=== PATIENT | male | born 1950 | race Caucasian/White ===

== ENCOUNTER → 2017-06-03 10:39 | Outpatient (CLI) | payer MEDICARE, SELFPAY ==
[2017-06-03 12:17] LABS: ALB/GLOB Ratio 1.1 RATIO (0.9-2.4); AST(SGOT) 26 U/L (15-37); Alanine Aminotransfer ALT/SGPT 35 U/L (16-61); Albumin, Serum 3.8 g/dL (3.2-5.0); Alkaline Phosphatase 75 U/L (45-117); Anion Gap 9 (5-15); BUN 15 mg/dL (7-18); BUN/Creat Ratio 12.8 RATIO (10-20); Chloride 102 mmol/L (98-107); Creatinine, Serum 1.17 mg/dL (0.70-1.30); EST Glomerular Filtration Rate 66 mL/min (>60); Est Glom Filt Rate - Afr Amer 80 mL/min (>60); Globulin 3.6 g/dL (2.2-4.2); Glucose 118 mg/dL (74-106); Potassium 3.8 mmol/L (3.5-5.1); Protein, Total 7.4 g/dL (6.4-8.2); Sodium Level 137 mmol/L (136-145)
== END ==
PROVIDERS: Family Provider Family Medicine; PCP Family Medicine; Visit Provider Family Medicine
DX: I10 Essential (primary) hypertension (principal)
CPT/HCPCS: 36415; 80053

== ENCOUNTER → 2017-12-07 09:27 | Outpatient (CLI) | payer MEDICARE, SELFPAY ==
[2017-12-07 12:27] LABS: Anion Gap 9 (5-15); BUN 21 mg/dL (7-18); BUN/Creat Ratio 15.2 RATIO (10-20); Chloride 105 mmol/L (98-107); Creatinine, Serum 1.38 mg/dL (0.70-1.30); EST Glomerular Filtration Rate 54 mL/min (>60); Est Glom Filt Rate - Afr Amer 66 mL/min (>60); Glucose 123 mg/dL (74-106); Potassium 4.4 mmol/L (3.5-5.1); Sodium Level 137 mmol/L (136-145)
== END ==
PROVIDERS: Family Provider Family Medicine; PCP Family Medicine; Visit Provider Family Medicine
DX: I10 Essential (primary) hypertension (principal)
CPT/HCPCS: 36415; 80048

== ENCOUNTER → 2018-03-17 10:36 | Outpatient (CLI) | payer MEDICARE, SELFPAY ==
[2018-03-17 11:34] LABS: Amphetamine Urine VISTA NEGATIVE (<1000 ng/mL); Barbiturate Urine VISTA NEGATIVE (< 200 ng/mL); Benzodiazepine Urine VISTA NEGATIVE (< 200 ng/mL); Cocaine Urine VISTA NEGATIVE (< 300 ng/mL); Ecstacy Urine VISTA NEGATIVE (< 500 ng/mL); Methadone Urine VISTA NEGATIVE (< 300 ng/mL); PCP Urine VISTA NEGATIVE (< 25 ng/mL); THC Urine VISTA POSITIVE (< 50 ng/mL); Vista UDS pH Range 5
== END ==
PROVIDERS: Family Provider Family Medicine; PCP Family Medicine; Referring Provider Anesthesiology Pain Medicine; Visit Provider Anesthesiology Pain Medicine
DX: F11.20 Opioid dependence, uncomplicated (principal)
CPT/HCPCS: 80307

== ENCOUNTER → 2018-07-07 09:28 | Outpatient (CLI) | payer MEDICARE, SELFPAY ==
--- NOTE | 2018-07-07 09:30 | RAD_ITS ---
STUDY: X-RAY - LUMBAR SPINE REASON FOR EXAM: Male, 67 years old. Chronic low back pain. TECHNIQUE: 5 view(s) of the lumbar spine were obtained including oblique views. COMPARISON: Comparison is made with prior examination dated September 17, 2016. FINDINGS: Normal lumbar lordosis. There is a dextroscoliosis of the lumbar spine. Grade 2 anterior listhesis of L5 on S1. 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 There is multilevel endplate spondylosis of the lumbar vertebrae. There is multi-level degenerative disc disease with multi-level disc space narrowing. The soft tissue structures are unremarkable. RAD/L/S Spine Min 4 Views IMPRESSION: Degenerative changes of the spine, as detailed above. Dextroscoliosis. Grade 2 anterolisthesis of L5 on S1. Electronically Signed: Deuce Vasquez, at 9:31 EDT , Service support ,
--- NOTE | 2018-07-07 09:31 | RAD_ITS ---
STUDY: X-RAY - THORACIC SPINE REASON FOR EXAM: Male, 67 years old. Back pain. TECHNIQUE: 2 view(s) of the thoracic spine were obtained. COMPARISON: None. FINDINGS: Normal kyphosis of the thoracic spine. There is no substantial scoliosis. There is multilevel endplate spondylosis of the thoracic vertebrae. There is multilevel disc space narrowing of the thoracic spine. The soft tissue structures are unremarkable. RAD/Thoracic Spine 2 Views IMPRESSION: Multilevel disc space narrowing and spondylosis of the thoracic vertebrae. Electronically Signed: Deuce Vasquez, at 9:31 EDT , Service support ,
== END ==
PROVIDERS: Family Provider Family Medicine; PCP Family Medicine; Referring Provider Family Medicine; Visit Provider Family Medicine
DX: M54.6 Pain in thoracic spine (principal); M54.40 Lumbago with sciatica, unspecified side
CPT/HCPCS: 72070; 72110

== ENCOUNTER → 2019-03-02 11:48 | Outpatient (CLI) | payer MEDICARE, SELFPAY ==
[2019-03-02 13:05] LABS: Amphetamine Urine VISTA NEGATIVE (<1000 ng/mL); Barbiturate Urine VISTA NEGATIVE (< 200 ng/mL); Benzodiazepine Urine VISTA NEGATIVE (< 200 ng/mL); Cocaine Urine VISTA NEGATIVE (< 300 ng/mL); Ecstacy Urine VISTA NEGATIVE (< 500 ng/mL); Methadone Urine VISTA NEGATIVE (< 300 ng/mL); PCP Urine VISTA NEGATIVE (< 25 ng/mL); THC Urine VISTA NEGATIVE (< 50 ng/mL); Vista UDS pH Range 5
== END ==
PROVIDERS: Family Provider Family Medicine; PCP Family Medicine; Referring Provider Anesthesiology Pain Medicine; Visit Provider Anesthesiology Pain Medicine
DX: F11.20 Opioid dependence, uncomplicated (principal)
CPT/HCPCS: 80307

== ENCOUNTER → 2020-01-24 07:03 | Outpatient (CLI) | payer MEDICARE, SELFPAY ==
[2020-01-24 09:55] LABS: Absolute Lymphocyte Count 1.42 X10^3/uL (0.83-4.51); Absolute Neutrophil Count 6.6 X10^3/uL (2.0-7.7); Basophil# 0.05 X10^3/uL; Basophil% 0.5 % (0-1); Eosinophil# 0.15 X10^3/uL; Eosinophils% 1.6 % (0-5); Hemoglobin 14.5 g/dL (13.0-16.5); Lymphocyte # 1.42 X10^3/ul (4.0); Lymphocyte % 15.6 % (19-41); Mean Corp Hgb Conc 31.5 g/dL (32-36); Mean Corpuscular Hgb 29.5 pg (27.0-32.0); Mean Corpuscular Volume 93.7 fL (80-94); Mean Platelet Vol. 9.5 fl (6.2-12.0); Monocyte# 0.83 X10^3/uL; Monocyte% 9.1 % (0-10); NRBC Flagged by Analyzer 0 % (0-5); Neutrophil # 6.57 X10^3/uL (2.7-7.7); Neutrophil % 72.2 % (47-70); Platelet Count 242 K/mm3 (150-450); RBC Distribution Width CV 13.1 % (11.6-14.6); RBC Distribution Width SD 44.9 fl (35.1-43.9); Red Blood Count 4.91 M/mm3 (4.6-6.2); White Blood Count 9.1 K/mm3 (4.4-11.0)
[2020-01-24 10:14] LABS: Hemoglobin A1c 5.9 % (3.8-5.6)
[2020-01-24 10:42] LABS: ALB/GLOB Ratio 0.9 RATIO (0.9-2.4); AST(SGOT) 16 U/L (15-37); Alanine Aminotransfer ALT/SGPT 22 U/L (16-61); Albumin, Serum 3.6 g/dL (3.2-5.0); Alkaline Phosphatase 74 U/L (45-117); Anion Gap 5 (5-15); BUN 18 mg/dL (7-18); BUN/Creat Ratio 14.6 RATIO (10-20); Calcium,Total 9.2 mg/dL (8.5-10.1); Chloride 103 mmol/L (98-107); Cholesterol 177 mg/dL (200); Creatinine, Serum 1.23 mg/dL (0.70-1.30); EST Glomerular Filtration Rate 62 mL/min (>60); Est Glom Filt Rate - Afr Amer 75 mL/min (>60); Globulin 3.8 g/dL (2.2-4.2); Glucose 119 mg/dL (74-106); High Density Lipoprotein 42 mg/dL; Potassium 4.1 mmol/L (3.5-5.1); Protein, Total 7.4 g/dL (6.4-8.2); Sodium Level 138 mmol/L (136-145); Thyroid Stim Hormone (TSH) 1.31 uIU/mL (0.358-3.74); Triglycerides 99 mg/dL; Very Low Density Lipoprotein 20 mg/dL (5-40)
== END ==
PROVIDERS: PCP Family Medicine; Referring Provider Nurse Practitioner Family; Visit Provider Nurse Practitioner Family
DX: R53.82 Chronic fatigue, unspecified (principal); R68.82 Decreased libido; E66.9 Obesity, unspecified; I10 Essential (primary) hypertension; M16.0 Bilateral primary osteoarthritis of hip; M79.10 Myalgia, unspecified site; Z79.899 Other long term (current) drug therapy
CPT/HCPCS: 36415; 80053; 80061; 83036; 84443; 85025; 86141

== ENCOUNTER → 2020-08-12 11:35 | Outpatient (CLI) | payer MEDICARE, SELFPAY | PROVIDERS: PCP Family Medicine; Referring Provider Family Medicine; Visit Provider Surgery | DX: Z01.812 Encounter for preprocedural laboratory examination (principal); Z01.818 Encounter for other preprocedural examination | CPT/HCPCS: 87426; C9803 ==

== ENCOUNTER → 2021-01-23 11:18 | Outpatient (CLI) | payer MEDICARE, SELFPAY ==
[2021-01-23 14:52] LABS: Absolute Lymphocyte Count 1.06 X10^3/uL (0.83-4.51); Absolute Neutrophil Count 3.1 X10^3/uL (2.0-7.7); Basophil# 0.02 X10^3/uL; Basophil% 0.4 % (0-1); Eosinophil# 0.14 X10^3/uL; Eosinophils% 2.8 % (0-5); Hematocrit 30.8 % (40-54); Hemoglobin 9.4 g/dL (13.0-16.5); Lymphocyte # 1.06 X10^3/ul (0.83-4.51); Lymphocyte % 21.2 % (19-41); Mean Corp Hgb Conc 30.5 g/dL (32-36); Mean Corpuscular Hgb 27.4 pg (27.0-32.0); Mean Corpuscular Volume 89.8 fL (80-94); Mean Platelet Vol. 9.6 fl (6.2-12.0); Monocyte# 0.68 X10^3/uL; Monocyte% 13.6 % (0-10); NRBC Flagged by Analyzer 0 % (0-5); Neutrophil # 3.08 X10^3/uL (2.7-7.7); Neutrophil % 61.6 % (47-70); Platelet Count 228 K/mm3 (150-450); RBC Distribution Width CV 15.9 % (11.6-14.6); RBC Distribution Width SD 52.1 fl (35.1-43.9); RET-HE 30.3 pg (30-35); Red Blood Count 3.43 M/mm3 (4.6-6.2); Reticulocyte Count 2.37 % (0.5-1.5)
[2021-01-23 15:09] LABS: Vitamin B12 383 pg/mL (211-911)
[2021-01-23 15:14] LABS: Anion Gap 7 (5-15); BUN 15 mg/dL (7-18); BUN/Creat Ratio 9.3 RATIO (10-20); Calcium,Total 8.9 mg/dL (8.5-10.1); Chloride 105 mmol/L (98-107); Creatinine, Serum 1.62 mg/dL (0.70-1.30); EST Glomerular Filtration Rate 45 mL/min (>60); Est Glom Filt Rate - Afr Amer 54 mL/min (>60); Ferritin 297 ng/mL (26-388); Glucose 111 mg/dL (74-106); Iron 32 ug/dL (65-175); Iron Binding Capacity,Total 221 ug/dL (250-450); Potassium 3.6 mmol/L (3.5-5.1); Sodium Level 139 mmol/L (136-145)
== END ==
PROVIDERS: PCP Family Medicine; Referring Provider Family Medicine; Visit Provider Family Medicine
DX: D64.9 Anemia, unspecified (principal); N18.30 Chronic kidney disease, stage 3 unspecified
CPT/HCPCS: 36415; 80048; 82607; 82728; 83540; 83550; 85025; 85045

== ENCOUNTER → 2021-03-26 09:09 | Outpatient (CLI) | payer MEDICARE, SELFPAY ==
[2021-03-26 10:16] LABS: Absolute Lymphocyte Count 1.08 X10^3/uL (0.83-4.51); Absolute Neutrophil Count 3.7 X10^3/uL (2.0-7.7); Basophil# 0.02 X10^3/uL; Basophil% 0.3 % (0-1); Eosinophil# 0.27 X10^3/uL; Eosinophils% 4.7 % (0-5); Hematocrit 36.3 % (40-54); Hemoglobin 10.9 g/dL (13.0-16.5); Lymphocyte # 1.08 X10^3/ul (0.83-4.51); Lymphocyte % 18.7 % (19-41); Mean Corpuscular Hgb 26.5 pg (27.0-32.0); Mean Corpuscular Volume 88.3 fL (80-94); Mean Platelet Vol. 9.6 fl (6.2-12.0); Monocyte# 0.67 X10^3/uL; Monocyte% 11.6 % (0-10); NRBC Flagged by Analyzer 0 % (0-5); Neutrophil # 3.72 X10^3/uL (2.7-7.7); Neutrophil % 64.4 % (47-70); Platelet Count 231 K/mm3 (150-450); RBC Distribution Width CV 16.5 % (11.6-14.6); RBC Distribution Width SD 53.5 fl (35.1-43.9); Red Blood Count 4.11 M/mm3 (4.6-6.2); White Blood Count 5.8 K/mm3 (4.4-11.0)
[2021-03-26 10:44] LABS: Anion Gap 11 (5-15); BUN 15 mg/dL (7-18); BUN/Creat Ratio 11.9 RATIO (10-20); Calcium,Total 9.1 mg/dL (8.5-10.1); Chloride 101 mmol/L (98-107); Creatinine, Serum 1.26 mg/dL (0.70-1.30); EST Glomerular Filtration Rate 60 mL/min (>60); Est Glom Filt Rate - Afr Amer 72 mL/min (>60); Ferritin 167 ng/mL (26-388); Glucose 115 mg/dL (74-106); Iron 32 ug/dL (65-175); Potassium 3.8 mmol/L (3.5-5.1); Sodium Level 138 mmol/L (136-145)
== END ==
PROVIDERS: PCP Family Medicine; Referring Provider Family Medicine; Visit Provider Family Medicine
DX: D64.9 Anemia, unspecified (principal); N18.30 Chronic kidney disease, stage 3 unspecified; I50.9 Heart failure, unspecified
CPT/HCPCS: 36415; 80048; 82728; 83540; 83880; 85025

== ENCOUNTER → 2022-02-11 | Outpatient (CLI) | payer MEDICARE, SELFPAY ==
[2022-02-11 13:19] LABS: ALB/GLOB Ratio 0.8 RATIO (0.9-2.4); AST(SGOT) 24 U/L (15-37); Alanine Aminotransfer ALT/SGPT 28 U/L (16-61); Albumin, Serum 3.3 g/dL (3.2-5.0); Alkaline Phosphatase 145 U/L (45-117); Anion Gap 6 (5-15); BUN 26 mg/dL (7-18); BUN/Creat Ratio 17.4 RATIO (10-20); Chloride 106 mmol/L (98-107); Creatinine, Serum 1.49 mg/dL (0.70-1.30); EST Glomerular Filtration Rate 49 mL/min (>60); Est Glom Filt Rate - Afr Amer 60 mL/min (>60); Globulin 3.9 g/dL (2.2-4.2); Glucose 109 mg/dL (74-106); Potassium 4.3 mmol/L (3.5-5.1); Protein, Total 7.2 g/dL (6.4-8.2); Sodium Level 138 mmol/L (136-145); Thyroid Stim Hormone (TSH) 3.23 uIU/mL (0.358-3.74)
[2022-02-11 13:34] LABS: BNP,B-Type NATRIURETIC PEPTIDE 581.3 pg/mL (0-100)
== END | disposition home or self-care (01) ==
LOC: MFPLAB 10:18
PROVIDERS: PCP Family Medicine; Referring Provider Family Medicine; Visit Provider Family Medicine
DX: R79.89 Other specified abnormal findings of blood chemistry (principal); I50.9 Heart failure, unspecified; I48.91 Unspecified atrial fibrillation; N18.30 Chronic kidney disease, stage 3 unspecified; Z12.5 Encounter for screening for malignant neoplasm of prostate
CPT/HCPCS: 36415; 80053; 83880; 84153; 84443; G0103

== ENCOUNTER → 2022-05-28 | Outpatient (CLI) | payer MEDICARE, SELFPAY ==
[2022-05-28 12:09] LABS: Hematocrit 41.1 % (40-54); Mean Corp Hgb Conc 31.6 g/dL (32-36); Mean Corpuscular Hgb 29.7 pg (27.0-32.0); Mean Corpuscular Volume 93.8 fL (80-94); Platelet Count 145 K/mm3 (150-450); RBC Distribution Width CV 16.4 % (11.6-14.6); RBC Distribution Width SD 57.2 fl (35.1-43.9); Red Blood Count 4.38 M/mm3 (4.6-6.2); White Blood Count 5.3 K/mm3 (4.4-11.0)
[2022-05-28 12:36] LABS: BNP,B-Type NATRIURETIC PEPTIDE 1180.3 pg/mL (0-100); Vitamin D,25 Hydroxy 36.2 ng/mL
[2022-05-28 12:40] LABS: Anion Gap 9 (5-15); BUN 21 mg/dL (7-18); BUN/Creat Ratio 12.7 RATIO (10-20); Calcium,Total 8.9 mg/dL (8.5-10.1); Chloride 105 mmol/L (98-107); Cholesterol 127 mg/dL (200); Creatinine, Serum 1.65 mg/dL (0.70-1.30); EST Glomerular Filtration Rate 44 mL/min (>60); Est Glom Filt Rate - Afr Amer 53 mL/min (>60); Glucose 108 mg/dL (74-106); High Density Lipoprotein 28 mg/dL; Phosphorus 2.6 mg/dL (2.5-4.9); Potassium 4.2 mmol/L (3.5-5.1); Sodium Level 139 mmol/L (136-145); Thyroid Stim Hormone (TSH) 5.07 uIU/mL (0.358-3.74); Triglycerides 87 mg/dL; Very Low Density Lipoprotein 17 mg/dL (5-40)
[2022-05-29 11:22] LABS: T4 Free Direct 1.49 ng/dL (0.76-1.46)
== END | disposition home or self-care (01) ==
LOC: MFPLAB 09:44
PROVIDERS: PCP Family Medicine; Referring Provider Family Medicine; Visit Provider Family Medicine
DX: I50.9 Heart failure, unspecified (principal); S22.000A Wedge compression fracture of unspecified thoracic vertebra, initial encounter for closed fracture; E11.69 Type 2 diabetes mellitus with other specified complication; D64.9 Anemia, unspecified
CPT/HCPCS: 36415; 80048; 80061; 82306; 82330; 83735; 83880; 83970; 84100; 84439; 84443; 85027

== ENCOUNTER → 2022-09-17 | Outpatient (CLI) | payer MEDICARE, SELFPAY ==
[2022-09-17 17:49] LABS: Hematocrit 38.9 % (40-54); Hemoglobin 12.1 g/dL (13.0-16.5); Mean Corp Hgb Conc 31.1 g/dL (32-36); Mean Corpuscular Volume 99.7 fL (80-94); Mean Platelet Vol. 9.3 fl (6.2-12.0); Platelet Count 253 K/mm3 (150-450); RBC Distribution Width CV 17.2 % (11.6-14.6); RBC Distribution Width SD 62.7 fl (35.1-43.9); RET-HE 34.3 pg (30-35); White Blood Count 5.2 K/mm3 (4.4-11.0)
[2022-09-17 18:39] LABS: Anion Gap 6 (5-15); BUN 23 mg/dL (7-18); BUN/Creat Ratio 15.4 RATIO (10-20); Calcium,Total 9.3 mg/dL (8.5-10.1); Chloride 107 mmol/L (98-107); Creatinine, Serum 1.49 mg/dL (0.70-1.30); EST Glomerular Filtration Rate 49 mL/min (>60); Est Glom Filt Rate - Afr Amer 59 mL/min (>60); Ferritin 185 ng/mL (26-388); Glucose 101 mg/dL (74-106); Iron 43 ug/dL (65-175); Iron Binding Capacity,Total 301 ug/dL (250-450); Potassium 4.7 mmol/L (3.5-5.1); Sodium Level 138 mmol/L (136-145); T4 Free Direct 1.29 ng/dL (0.76-1.46); Thyroid Stim Hormone (TSH) 2.86 uIU/mL (0.358-3.74)
== END | disposition home or self-care (01) ==
LOC: MFPLAB 16:46
PROVIDERS: PCP Family Medicine; Visit Provider Family Medicine
DX: N18.30 Chronic kidney disease, stage 3 unspecified (principal); D64.9 Anemia, unspecified; R79.89 Other specified abnormal findings of blood chemistry
CPT/HCPCS: 36415; 80048; 82728; 83540; 83550; 84439; 84443; 85027; 85045

== ENCOUNTER → 2023-09-08 | Outpatient (CLI) | payer MEDICARE, SELFPAY ==
[2023-09-08 16:32] LABS: Free T3 4.5 pg/mL (2.18-3.98); T3 Uptake 44 % (33-40); T4 Free Direct 2.71 ng/dL (0.76-1.46); T4 Total, Thyroxin 16.3 ug/dL (4.5-12.1); T7 / Free Thyroxin Index 7.2 (1.4-4.5); Thyroid Stim Hormone (TSH) < 0.01 uIU/mL (0.358-3.74)
[2023-09-10 08:12] LABS: Thyroid Peroxidase AB 15 IU/mL (0-34)
== END | disposition home or self-care (01) ==
LOC: MFPLAB 12:29
PROVIDERS: PCP Family Medicine; Visit Provider Family Medicine
DX: E07.9 Disorder of thyroid, unspecified (principal)
CPT/HCPCS: 36415; 84436; 84439; 84443; 84479; 84481; 86376

== ENCOUNTER → 2024-03-29 | Outpatient (CLI) | payer MEDICARE, SELFPAY ==
[2024-03-29 18:06] LABS: Hematocrit 51.2 % (40-54); Hemoglobin 16.9 g/dL (13.0-16.5); Mean Corpuscular Hgb 31.5 pg (27.0-32.0); Mean Corpuscular Volume 95.5 fL (80-94); Mean Platelet Vol. 9.8 fl (6.2-12.0); Platelet Count 179 K/mm3 (150-450); RBC Distribution Width CV 14.6 % (11.6-14.6); Red Blood Count 5.36 M/mm3 (4.6-6.2); White Blood Count 7.5 K/mm3 (4.4-11.0)
[2024-03-29 18:29] LABS: Anion Gap 7 (5-15); BUN 31 mg/dL (7-18); BUN/Creat Ratio 23.8 RATIO (10-20); Calcium,Total 9.7 mg/dL (8.5-10.1); Chloride 106 mmol/L (98-107); EST Glomerular Filtration Rate 57 mL/min (>60); Est Glom Filt Rate - Afr Amer 69 mL/min (>60); Free T3 2.7 pg/mL (2.18-3.98); Glucose 106 mg/dL (74-106); Iron 68 ug/dL (65-175); Potassium 4.6 mmol/L (3.5-5.1); Sodium Level 136 mmol/L (136-145); T4 Free Direct 0.96 ng/dL (0.76-1.46)
[2024-03-30 00:47] LABS: Vitamin D,25 Hydroxy 32.9 ng/mL
[2024-03-31 11:07] LABS: Thyroid Peroxidase AB < 9 IU/mL (0-34)
== END | disposition home or self-care (01) ==
LOC: MFPLAB 15:09
PROVIDERS: PCP Family Medicine; Referring Provider Family Medicine; Visit Provider Family Medicine
DX: N18.30 Chronic kidney disease, stage 3 unspecified (principal); R79.89 Other specified abnormal findings of blood chemistry
CPT/HCPCS: 36415; 80048; 82306; 83540; 84439; 84443; 84481; 85027; 86376

== ENCOUNTER → 2024-10-18 | Outpatient (CLI) | payer MEDICARE, SELFPAY ==
[2024-10-18 08:57] LABS: Barbiturate Urine NEGATIVE (< 200 ng/mL); Benzodiazepine Urine NEGATIVE (< 200 ng/mL); PCP Urine NEGATIVE (< 25 ng/mL); THC Urine PRESUMPTIVE POSITIVE (< 50 ng/mL)
== END | disposition home or self-care (01) ==
LOC: LAB 07:49
PROVIDERS: PCP Family Medicine; Referring Provider Anesthesiology; Visit Provider Anesthesiology
DX: M47.26 Other spondylosis with radiculopathy, lumbar region (principal)
CPT/HCPCS: 80307

== ENCOUNTER → 2024-12-15 | Outpatient (CLI) | payer MEDICARE, SELFPAY ==
--- OUTSIDE RECORDS SUMMARY | 2024-12-13 05:39 | XMS RPT_ITS | CCD ---
Author Organization [facility] Care Team Providers Care Cooler Service Supervisor Name Role Phone Dominick Saenz Unavailable Unavailab Dominick Norman Unavailable Unavailab Hoda Arcos Unavailable Unavail able Dominick Saenz Unavailable Unavailab Refugio Pulido Unavailable Hoda Lewis Unavailable Unavailable KENAN NEWTON, DR DRUMMOND Primary Care Physician Hoda Grayson MD Primary Care Provider KENAN NEWTON, DR DRUMMOND Primary Care Physician NASH HENRY Referring Unavailable HODA GRAYSON Primary Care UnavailNASH Barth Admitting Unavailable NASH HENRY Attending Unavailable HODA GRAYSON Primary Care UnavailCATRINA Maya Consulting Unavailable PHYSICIAN, NOT RECORDED Primary Care Physician U margie GRAYSON MD, DR DRUMMOND Primary Care Jabier KOWALSKI MD, DR XU Robledo Attending Unavailable KENAN NEWTON, DR DRUMMOND Primary Care Jabier MODI MD, SAM Attending Unavailable KENAN NEWTON, DR DRUMMOND Primary Care Jabier MODI MD, SAM Attending Unavailable KENAN NEWTON, DR DRUMMOND Primary Care Jabier GRAYSON MD, DR DRUMMOND Consulting Jabier KOWALSKI MD, DR XU Robledo Attending Unavailable KENAN NEWTON, DR DRUMMOND Primary Care Jabier JUSTIN, MS MIL M Attending Gowdin GRAYSON MD, DR DRUMMOND Primary Care Jabier JUSTIN, MS MIL M Attending DELMAR Govea MD Attending Unavailable KENAN NEWTON, DR DRUMMOND Primary Care SCOTT Pimentel MD Attending Unavailable KENAN NEWTON, DR DRUMMOND Primary Care Jabier RESTREPO APRN-PAINT MIXER MACHINE, FRANKLYN Mota Referring Jabier RESTREPO APRN-PAINT MIXER MACHINE, FRANKLYN L Admitting Jabier MANCILLA MD, JG Consulting Unavailable KENAN NEWTON, DR DRUMMOND Primary Care Jabier LEON PA, MS MIL M Attending Godwin GRAYSON MD, DR DRUMMOND Primary Care Jabier MORENO MD, DELMAR Vasquez Attending Unavailable JOSH NEWTON, DELMAR Vasquez Attending Unavailable KENAN NEWTON, DR DRUMMOND Primary Care Jabier MORENO MD, DELMAR Vasquez Attending Unavailable KENAN NEWTON, DR DRUMMOND Primary Care Jabier KOWALSKI MD, DR XU Robledo Attending Unavailable KENAN NEWTON, DR DRUMMOND Primary Care Jabier KOWALSKI MD, DR XU Robledo Attending Unavailable KENAN NEWTON, DR DRUMMOND Primary Care Jabier MODI MD, SAM Attending Unavailable LY NETWON, SAM Admitting Unavailable KENAN NEWTON, DR DRUMMOND Primary Care Jabier SERNA APRN-PAINT MIXER MACHINE, ARLEY Carbajal Referring Unavail able KENAN NEWTON, DR DRUMMOND Primary Care Jabier MODI MD, SAM Attending Unavailable Hoda Grayson Primary Care Provider [phone] Arie NEWTON, Yulan Unavailable KENAN NEWTON, DR DRUMMOND [facility] Jabier SARGENT MD, NATALIA Steele Attending Unavailable Hoda Grayson MD Primary Care Provider HODA GRAYSON Primary Care Unavailable URBANO GODWIN Referring Unavailable ANTIONE CARDENAS Attending Unavailable HODA GRAYSON Primary Care Unavailable ANTIONE CARDENAS Attending Unavailable HODA GRAYSON Primary Care Unavailable ANTIONE CARDENAS Attending Unavailable ANTIONE CARDENAS Admitting Unavailable HODA GRAYSON Primary Care Unavailable JAJA, ANTIONE Attending Unavailable EARLINE LEW Attending Unavailable HODA GRAYSON Primary Care Unavailable Kenan NEWTON, Dr. Drummond Primary Care Provider Eric NEWTON, Dr. Elder Attending Provider Eric NEWTON, Dr. Elder Referring Provider DORYS NEWTON, AVI Abreu Attending Unavail gaby GRAYSON MD, DR DRUMMOND Primary Care Jabier GRAYSON MD, DR DRUMMOND Primary Care Jabier SAUL MD, AVI Abreu Attending Unavail gaby GRAYSON MD, DR DRUMMOND Primary Care Jabier GRAYSON MD, DR DRUMMOND Consulting Jabier KOWALSKI MD, DR XU Robledo Attending Unavailable KENAN NEWTON, DR DRUMMOND Primary Care Jabier LEW PA-C, EARLINE Attending Unavailab jeanna GRAYSON MD, DR DRUMMOND Primary Care Jabier REYES MD, JERROD Attending Unavailable Kenan Hoda [facility] Unavailable Jerrod Reyes Referring Unavailable Jerrod Reyes Attending Unavailable Kenan, Hoda Attending Unavailable Hoda Grayson [facility] Unavailable Hoda Grayson Referring Unavailable Kenan, Hoda [facility] Unavailable Jerrod Reyes Referring Unavailable Jerrod Reyes Attending Unavailable Allergies Allergy Classification Reported Allergen(s) Allergy Type Date of Onset Reaction(s) Facility (7 sources) Penicillin; Translations: [penicillin] Drug Allergy [facility] (4 sources) Penicillins; Translations: [PENICILLINS] Propensity to adverse reactions to drug 9 Intolerance [facility] (3 sources) Penicillins Propensity to adverse reactions 1 skin comes off bottom of feet [facility] (20 sources) Penicillin; Translations: [penicillin] Drug Allergy Broken skin (disorder) [facility] Comment on above: hands and feet peel ed and bled (3 sources) dapagliflozin; Translations: [dapagliflozin] Drug Allergy light headed [facility] (20 sources) dapagliflozin Drug Allergy 4 Other [facility] (20 sources) Penicillins Drug Allergy 9 Other [facility] (1 source) Penicillins Drug allergy (disorder) 1 [facility] Rep[facility] Medications Current Medications Medication Drug Class(es) Dates Sig (Normalized) Sig (Original) acetaminophen 325 mg / HYDROcodone bitartrate 7.5 mg oral tablet (20 sources) Opioid Agonist Start: 12-10-2023 End: 01-09-2024 take 1 tablet by mouth every four hours as needed for pain [place] 325- 7.5 mg oral tablet Dose = 1 tab(s), Oral, q4h, PRN for pain, # 90 tab(s), 0 Refill(s), Pharmacy: [facility], Lumbar radiculitis SCOLIOSIS/KYPHOSCO LIOSIS, 188, cm, 12/10/23 8:08:00 EDT, Height, 103, kg, 12/10/23 8:08:00 EDT, Dosing Weight Start Date: 12/10/23 Stop Date: 01/09/24 Status: Ordered Start: 11-16-2023 End: 12-16-2023 take 1 tablet by mouth every eight hours as needed for pain [place] 325- 7.5 mg oral tablet Dose = 1 tab(s), Oral, q8h, PRN for pain, # 90 tab(s), 0 Refill(s), Pharmacy: [facility], Lumbar radiculitis Spinal stenosis, 188, cm, 11/12/23 7:44:00 EDT, Height, 106.8, kg, 11/12/23 7:44:00 EDT, Dosing Weight Start Date: 11/16/23 Stop Date: 12/16/23 Status: Ordered Start: 10-15-2023 End: 11-14-2023 take 1 tablet by mouth every eight hours as needed for pain [place] 325- 7.5 mg oral tablet Dose = 1 tab(s), Oral, q8h, PRN as needed for pain, # 90 tab(s), 0 Refill(s), [facility]: [id number], Lumbar radiculitis SCOLIOSIS/KYPHOSCOLIOSIS, 188, cm, 10/15/23 7:42:00 EDT, Height, 106.9, kg, 10/15/23 7:42:00 EDT, Dosing Weight Start Date: 10/15/23 Stop Date: 11/14/23 Status: Ordered Start: 09-15-2023 End: 10-15-2023 take 1 tablet by mouth every six hours as needed for pain acetaminophen-hydrocodone 325 mg-7.5 mg oral tablet Dose = 1 tab(s), Oral, q6h, PRN for pain, # 120 tab(s), 0 Refill(s), Pharmacy: [facility] #[id number], Lumbar radiculitis SCOLIOSIS/KYPHOSCOLIOSIS, 188, cm, 09/15/23 9:38:00 EDT, Height, 104.5, kg, 09/15/23 9:38:00 EDT, Dosing Weight Start Date: 09/15/23 Stop Date: 10/15/23 Status: Ordered Start: 11-02-2022 End: 12-02-2022 take 1 tablet by mouth four times daily as needed for pain acetaminophen-hydrocodone 325 mg-7.5 mg oral tablet Dose = 1 tab(s), Oral, QID, PRN for pain, X 30 day(s), # 120 tab(s), 0 Refill(s), Pharmacy: [facility] #[id number], Lumbar stenosis with neurogenic claudication, 188, cm, 11/02/22 11:28:00 EDT, Height, 98.5, kg, 11/02/22 11:28:00 EDT, Dosing Weight Start Date: 11/02/22 Stop Date: 12/02/22 Status: Ordered Start: 12-25-2021 take 1 tablet by florencio th every four hours as needed HYDROcodone-acetaminophen (NORCO) 5-325 mg per tablet Indications: Localized osteoarthritis of left shoulder Take 1 tablet by mouth every 4 hours as needed. 42 tablet 12/25/2021 Active End: 07-07-2024 HYDROcodone-acetaminophen (N orco) 7.5-325 MG tablet 07/07/2024 Discontinued (Therapy completed) acetaminophen 325 mg / oxyCODONE hydrochloride 5 mg oral tablet (6 sources) Opioid Agonist Start: 09-16-2023 Oxycodone-Acet aminophen 5-325 mg tablet Active 1 {tbl} PO EVERY 6 HOURS as needed 0 September 16, 2023 12:00am Start: 02-01-2023 End: 03-03-2023 take 1 tablet by mouth every six hours as needed for pain acetaminophen-oxyCODONE 325 mg-5 mg oral tablet Dose = 1 tab(s), Oral, q6h, PRN for pain, X 30 day(s), # 120 tab(s), 0 Refill(s), [facility]: [facility] #[id number], Lumbar radiculitis Spinal stenosis, lumbar, 188, cm, 02/01/23 8:54:00 EDT, Height, 94.5, kg, 02/01/23 8:54:00 EDT, Dosing Weight Start Date: 02/01/23 Stop Date: 03/03/23 Status: Ordered Start: 01-04-2023 End: 01-29-2023 take 1 tablet by mouth every six hours as needed for pain acetaminophen-oxyCODONE 325 mg-5 mg oral tablet Dose = 1 tab(s), Oral, q6h, PRN for pain, X 25 day(s), # 100 tab(s), 0 Refill(s), [facility]: [facility] #[id number], Lumbar radiculitis, 188, cm, 01/04/23 8:40:00 EDT, Height, 110.4, kg, 01/04/23 8:40:00 EDT, Dosing Weight Start Date: 01/04/23 Stop Date: 01/29/23 Status: Ordered Start: 11-30-2022 End: 12-07-2022 take 1 tablet by mouth every four hours as needed for pain acetaminophen-oxyCODONE 325 mg-5 mg oral tablet Dose = 1 tab(s), Oral, q4h, PRN for pain, for post op pain SCS implant, X 7 day(s), # 42 tab(s), 0 Refill(s), [facility]: [id number], Spinal stenosis, lumbar, 182.88, cm, 11/30/22 6:55:00 EDT, Height, 104.55, kg, 11/30/22 6:55:00 EDT, Dosing Weight Start Date: 11/30/22 Stop Date: 12/07/22 Status: Ordered Start: 09-22-2022 End: 10-22-2022 take 1 tablet by mouth every four hours as needed for pain acetaminophen-oxyCODONE 325 mg-5 mg oral tablet Dose = 1 tab(s), Oral, q4h, PRN for pain, X 30 day(s), # 150 tab(s), 0 Refill(s), [facility]: [facility] #[id number], SCOLIOSIS/KYPHOSCOLIOSIS/Chronic back pain Spinal stenosis, lumbar, 188, cm, 09/21/22 13:46:00 EDT, Height, 104, kg, 09/21/22 13:46:00 EDT,... Start Date: 09/22/22 Stop Date: 10/22/22 Status: Ordered amLODIPine 5 mg oral tablet (3 sources) Dihydropyridine Calcium Channel Mimi take 1 tablet by mouth once daily in the morning amLODIPine (NORVASC) 5 mg tablet Take 5 mg by mouth once daily. AM Active Comment on above: Take 5 mg by mouth o nce daily. AM ascorbic acid 500 mg oral tablet (1 source) Vitamin C Start: 2 Vitamin C 500 mg oral tablet Dose : 500 mg = 1 tab(s), Oral, qDay, # 30 tab(s), 0 Refill(s) Start Date: 07/01/21 Status: Ordered aspirin 81 mg delayed release oral tablet (7 sources) Platelet Aggregation Inhibitor, Nonsteroidal Anti-inflammatory Drug Start: 1 Aspir-Low 81 mg oral delayed release tablet Dose : 81 mg = 1 tab(s), Oral, qDay, # 30 tab(s), 0 Refill(s), other reason (Rx) Start Date: 01/06/21 Status: Ordered take 1 tablet by florencio th every four hours as needed Aspirin 500 mg tab Take 500 mg by mouth every 4 hours as needed. Will stop today takes for pain Active Comment on above: Take 500 mg by mouth every 4 hours as needed. Will stop today takes for pain atorvastatin 40 mg oral tablet (20 sources) HMG-CoA Reductase Inhibitor Start: End: atorvastatin 40 mg oral tablet Dose : 40 mg = 1 tab(s), Oral, qDay, # 30 tab(s), 0 Refill(s) Start Date: 09/15/23 Status: Ordered Quantity: 30.0 Unit: tab(s) Repeat number: 1 Calcium (1 source) Phosphate Binder, Calcium Start: take 1 capsule by mouth twice daily Calcium 600 mg capsule Active 600 mg PO TWICE A DAY September 16, 2023 12:00am cholecalciferol 0.025 mg oral tablet (1 source) Vitamin D Start: take 1 tablet by mouth once daily Cholecalciferol (Vitamin D3) 25 mcg (1,000 unit) tablet Active 25 ug PO DAILY September 16, 2023 12:00am clindamycin 300 mg oral capsule (1 source) Lincosamide Antibacterial Start: End: clindamycin 300 mg oral capsule Dose : 300 mg = 1 cap(s), PO, q6hr, X 7 day(s), # 28 cap(s), 0 Refill(s), 12/12/21 4:54:00 EDT, Cellulitis, 110 Start Date: 12/05/21 Stop Date: 12/12/21 Status: Ordered dapagliflozin 10 mg oral tablet (20 sources) Sodium-Glucose Cotransporter 2 Inhibitor Start: End: Farxiga 10 mg oral tablet Dose : 10 mg = 1 tab(s), Oral, qDay, # 90 tab(s), 3 Refill(s), Pharmacy: [facility], 188, cm, 06/30/24 7:48:00 EDT, Height, kg, 06/30/24 7:48:00 EDT, Dosing Weight Start Date: 07/05/24 Status: Ordered Quantity: 90.0 Unit: tab(s) Repeat number: 4 doxycycline hyclate 100 mg oral capsule (1 source) Tetracycline-class Drug Start: End: doxycycline hyclate 100 mg oral capsule Dose : 100 mg = 1 cap(s), Oral, BID, X 10 day(s), # 20 cap(s), 0 Refill(s), 08/31/22 11:38:00 EDT, 113.6 Start Date: 08/21/22 Stop Date: 08/31/22 Status: Ordered empagliflozin 10 mg oral tablet (1 source) Sodium-Glucose Cotransporter 2 Inhibitor Start: Jardiance 10 mg oral tablet Dose : 10 mg = 1 tab(s), Oral, qAM, # 30 tab(s), 11 Refill(s), Pharmacy: [facility]/pharmacy #[id number], 188, cm, 06/19/22 8:56:00 EST, Height Start Date: 06/19/22 Status: Ordered furosemide 20 mg oral tablet (5 sources) Loop Diuretic Start: 024 take 1 tablet by mouth once daily Furosemide 20 mg tablet Active 20 mg PO DAILY September 16, 2023 12:00am Start: 08-16-2023 Lasix 20 mg or al tablet Dose : 20 mg = 1 tab(s), Oral, BID, AM and Lunch, # 180 tab(s), 3 Refill(s), Pharmacy: [facility], 188, cm, 08/16/23 14:45:00 EDT, Height, kg, 08/16/23 14:45:00 EDT, Dosing Weight Start Date: 08/16/23 Status: Ordered herbal/nutritional product (9 sources) Start: 07-01-2021 take 200 mg by mouth once daily herbal/nutritional product 200 mg, Oral, Daily, potassium, 0 Refill(s) Start Date: 07/01/21 Status: Ordered magnesium oxide 400 mg oral tablet (2 sources) Start: 09-05-2022 End: 10-05-2022 magnesium oxide 400 mg oral tablet Dose : 400 mg = 1 tab(s), Oral, BID, X 30 day(s), # 60 tab(s), 0 Refill(s), 10/05/22 14:02:00 EDT, Pharmacy: [facility]/pharmacy #[id number], 188, cm, 09/01/22 15:44:00 EDT, Height Start Date: 09/05/22 Stop Date: 10/05/22 Status: Ordered 24 hr metoprolol succinate 25 mg extended release oral tablet (14 sources) beta-Adrenerg ic Mimi Start: 10-04-2023 End: 10-05-2023 metoprolol succinate 25 mg oral TABLET extended release Start: 10/05/23 8:00:00 AM EDT, Dose = 25 mg, = 1 tab(s), Oral, 10/04/23 8:15:00 EDT Start Date: 10/05/23 Stop Date: 10/05/23 Status: Completed Start: 09-17-2023 End: 09-17-2023 metoprolol succinate 25 mg o ral TABLET extended release Start: 09/17/23 8:00:00 AM EDT, Dose = 25 mg, = 0.5 tab(s), Oral, 0, 09/16/23 17:19:00 EDT Start Date: 09/17/23 Stop Date: 09/17/23 Status: Completed Start: 08-16-2023 metoprolol suc cinate 25 mg oral TABLET extended release Dose : 25 mg = 1 tab(s), Oral, qDay, # 90 tab(s), 3 Refill(s), Pharmacy: [facility], 188, cm, 06/30/24 7:48:00 EDT, Height, kg, 06/30/24 7:48:00 EDT, Dosing Weight Start Date: 07/05/24 Status: Ordered Quantity: 90.0 Unit: tab(s) Repeat number: 4 metroNIDAZOLE 500 mg oral tablet (1 source) Nitroimidazole Antimicrobial Start: 08-21-2022 End: 08-31-2022 metroNIDAZOLE 500 mg oral tablet Dose : 500 mg = 1 tab(s), Oral, q8h, X 10 day(s), # 30 tab(s), 0 Refill(s), 08/31/22 11:38:00 EDT, 113.6 Start Date: 08/21/22 Stop Date: 08/31/22 Status: Ordered potassium chloride 10 meq oral tablet (11 sources) Start: 07-05-2024 Potassium Chlo ride (Eqv-K-Tab) 10 mEq oral tablet, extended release Dose : 10 mEq = 1 tab(s), Oral, qDay, # 90 tab(s), 3 Refill(s), Pharmacy: [facility], 188, lia, 06/30/24 7:48:00 EDT, Height, kg, 06/30/24 7:48:00 EDT, Dosing Weight Start Date: 07/05/24 Status: Ordered Quantity: 90.0 Unit: tab(s) Repeat number: 4 Start: 09-16-2023 take 1 tablet by florencio th once daily potassium chloride CR (Klor-Con) 10 MEQ ER tablet Take 10 mEq by mouth daily. 10/06/2023 Active Start: 08-16-2023 Potassium Chlo ride (Eqv-K-Tab) 10 mEq oral tablet, extended release Dose : 10 mEq = 1 tab(s), Oral, qDay, # 90 tab(s), 3 Refill(s), Pharmacy: [facility], 188, cm, 08/16/23 14:45:00 EDT, Height, kg, 08/16/23 14:45:00 EDT, Dosing Weight Start Date: 08/16/23 Status: Ordered rivaroxaban 20 mg oral tablet (20 sources) Factor Xa Inhibitor Start: 07-05-2024 Xarelto 20 mg oral tablet Dose : 20 mg = 1 tab(s), Oral, qPM, # 90 tab(s), 3 Refill(s), Pharmacy: [facility], 188, cm, 06/30/24 7:48:00 EDT, Height, 111, kg, 06/30/24 7:48:00 EDT, Dosing Weight Start Date: 07/05/24 Status: Ordered Quantity: 90.0 Unit: tab(s) Repeat number: 4 Start: 09-16-2023 End: 06-26-2024 take 15 mg by mouth once daily at dinner 15 mg, Oral, Daily with evening meal, First dose on 06/25/24 at 1800, Anticoagulant! Best administered with food or immediately before tube feedings. If ordered via NG or G-tube route, crush and mix with 50 mL water; give within 4 hours of mixing. Start: 08-30-2023 Xarelto 20 mg oral tablet Dose : 20 mg = 1 tab(s), Oral, qPM, # 90 tab(s), 3 Refill(s), Pharmacy: [facility], 188, lia, 08/30/23 6:51:00 EDT, Height, 108, kg, 08/30/23 6:51:00 EDT, Dosing Weight Start Date: 08/30/23 Status: Ordered Start: 01-06-2021 Xarelto 15 mg oral tablet Dose : 15 mg = 1 tab(s), Oral, qHS, with food with evening meal, # 90 tab(s), 3 Refill(s), Pharmacy: [facility], 188, cm, 05/28/23 10:28:00 EST, Height, 100, kg, 05/28/23 10:28:00 EST, Dosing Weight Start Date: 05/28/23 Status: Ordered Comment on above: Take 15 mg by mouth daily with dinner. LAST DOSE 72 HOURS PRE OP PER DR HENRY, DR KOWALSKI AWARE AND OKAY WITH sacubitril 24 mg / valsartan 26 mg oral tablet (20 sources) Angiotensin 2 Receptor Mimi Start: 09-16-2023 Sacubitril-Valsartan (Entresto) 24-26 mg tablet Active 1 {tbl} PO DAILY September 16, 2023 12:00am Start: 08-16-2023 take 1 tablet by florencio th twice daily Entresto 24 mg-26 mg oral tablet Dose = 1 tab(s), Oral, BID, # 180 tab(s), 3 Refill(s), Pharmacy: [facility], 188, cm, 06/30/24 7:48:00 EDT, Height, kg, 06/30/24 7:48:00 EDT, Dosing Weight Start Date: 07/05/24 Status: Ordered Quantity: 180.0 Unit: tab(s) Repeat number: 4 spironolactone 25 mg oral tablet (8 sources) Aldosterone Antagonist Start: 03-19-2021 spironolactone 25 mg oral tablet Dose : 25 mg = 1 tab(s), Oral, qDayM, # 90 tab(s), 3 Refill(s), Pharmacy: [facility]/pharmacy #[id number], 188, cm, 06/16/21 6:53:00 EST, Height, kg, 06/16/21 6:53:00 EST, Dosing Weight Start Date: 06/16/21 Status: Ordered Comment on above: Take 25 mg by mouth once daily. AM, EVERY OTHER DAY tiZANidine 4 mg oral tablet (20 sources) Central alpha-2 Adrenergic Agonist Start: 06-22-2024 End: 06-26-2024 take 1 tablet by mouth every six hours as needed 4 mg, Oral, Every 6 hours PRN, muscle spasms, Starting on Marlene 06/22/24 at 1154 Start: 10-04-2023 tiZANidine 4 m g oral capsule Dose : 4 mg = 1 cap(s), Oral, TID, PRN Pain, 0 Refill(s) Start Date: 10/04/23 Status: Ordered Repeat number: 1 Start: 08-22-2022 Zanaflex 4 mg oral capsule Dose : 4 mg = 1 cap(s), Oral, q8h, PRN for muscle spasm, # 30 cap(s), 0 Refill(s) Start Date: 08/22/22 Status: Ordered Start: 07-01-2021 take 1 tablet by florencio th three times daily as needed tiZANidine (Zanaflex) 4 MG tablet Take 4 mg by mouth 3 times daily as needed. 06/30/2024 Active Comment on above: Take 4 mg by mouth a t bedtime as needed. Vitamin C 500 mg oral tablet (20 sources) Start: 09-21-2022 Vitamin C 500 mg oral tablet Dose : 500 mg = 1 tab(s), Oral, qDay Start Date: 09/21/22 Status: Ordered Repeat number: 1 Start: 09-21-2022 Vitamin C 500 mg oral tablet Dose : 500 mg = 1 tab(s), Oral, qDay Start Date: 09/21/22 Status: Ordered Start: 07-01-2021 Vitamin C 500 mg oral tablet Dose : 500 mg = 1 tab(s), Oral, qDay, # 30 tab(s), 0 Refill(s) Start Date: 07/01/21 Status: Ordered Vitamin D3 (9 sources) Start: 07-01-2021 Vitamin D3 Dos e : 1,000 unit(s) = 1 tab(s), Oral, Daily, # 30 tab(s), 0 Refill(s) Start Date: 07/01/21 Status: Ordered Vitamin D3 25 mcg (1000 intl units) oral capsule (20 sources) Start: 09-21-2022 Vitamin D3 25 mcg (1000 intl units) oral capsule Dose : 25 mcg = 1 cap(s), Oral, Daily, 0 Refill(s) Start Date: 09/21/22 Status: Ordered Repeat number: 1 Start: 09-21-2022 Vitamin D3 25 mcg (1000 intl units) oral capsule Dose : 25 mcg = 1 cap(s), Oral, Daily, 0 Refill(s) Start Date: 09/21/22 Status: Ordered Completed/Discontinued Medications Medication Drug Class(es) Dates Sig (Normalized) Sig (Original) acetaminophen 500 mg oral tablet (7 sources) Start: 06-21-2024 End: 06-26-2024 take 1 tablet by mouth every eight hours 1,000 mg, Oral, Every 8 hours, First dose on Wed06/21/24 at 1600, Phase II/On Unit, Maximum dose of acetaminophen is 4000 mg from all sources in 24 hours. Start: 06-21-2024 End: 06-21-2024 take 1000 mg by mouth once, then take 4000 mg by mouth every twenty-four hours 1,000 mg, Oral, Once, On Wed06/21/24 at 0600, For 1 dose, Preprocedure, Maximum dose of acetaminophen is 4000 mg from all sources in 24 hours. Do not administer if patient has taken tylenol take 1 tablet by florencio every eight hours as needed acetaminophen (TYLENOL EXTRA STRENGTH) 500 mg tablet Take 500 mg by mouth every 8 hours as needed for pain. Active Comment on above: Take 500 mg by mouth every 8 hours as needed for pain. ALPRAZolam 0.25 mg disintegrating oral tablet (2 sources) Benzodiazepine Start: 06-22-19 End: 06-22-19 25 0.25 mg, Oral, PRN, anxiety, Starting on Wed06/21/24 at 0550, For 1 dose, Preprocedure amiodarone hydrochloride 200 mg oral tablet (20 sources) Antiarrhythmic Start: 08-16-19 End: 06-27-19 take 1 tablet by mouth twice daily Amiodarone 200 mg tablet Active 200 mg PO TWICE A DAY September 16, 2023 2:21pm Start: 08-16-2023 take 2 tablets by mo [facility] once daily amiodarone (Pacerone) 200 MG tablet Take 400 mg by mouth daily. 08/16/2023 Active Start: 06-01-2023 amiodarone 200 mg oral tablet Dose : 200 mg = 1 tab(s), Oral, qDay, # 30 tab(s), 3 Refill(s), Pharmacy: [facility], 188, cm, 05/28/23 10:28:00 EST, Height, kg, 05/28/23 10:28:00 EST, Dosing Weight Start Date: 06/01/23 Status: Ordered Start: 03-12-2023 amiodarone 200 mg oral tablet Dose : 200 mg = 1 tab(s), Oral, qDay, # 30 tab(s), 3 Refill(s), Pharmacy: [facility], 188, cm, 02/05/23 10:10:00 EDT, Height, kg, 02/05/23 10:10:00 EDT, Dosing Weight Start Date: 03/12/23 Status: Ordered Start: 02-05-2023 amiodarone 200 mg oral tablet Dose : 200 mg = 1 tab(s), Oral, qDay, # 90 tab(s), 3 Refill(s), Pharmacy: [facility]/pharmacy #[id number], 188, cm, 02/05/23 10:10:00 EDT, Height, kg, 02/05/23 10:10:00 EDT, Dosing Weight Start Date: 02/05/23 Status: Ordered Start: 05-12-2022 amiodarone 200 mg oral tablet Dose : 200 mg = 1 tab(s), Oral, qDay, # 90 tab(s), 3 Refill(s), [id number] 188, cm, 12/17/21 9:12:00 EDT, Height, kg, 12/17/21 9:12:00 EDT, Dosing Weight Start Date: 05/12/22 Status: Ordered Start: 05-30-2021 End: 09-16-2023 take 1 tablet by mouth once daily Amiodarone 200 mg tablet Discontinued 200 mg PO DAILY September 16, 2023 12:00am September 16, 2023 2:22pm Comment on above: Take 200 mg by mouth once daily. AM PER DR KOWALSKI, HX AFIB bisacodyl 10 mg rectal suppository (2 sources) Stimulant Laxative Start: 5 End: 5 take 10 mg rectal route once daily 10 mg, Rectal, Daily, First dose on Wed06/23/24 at 1300 bumetanide 1 mg oral tablet (20 sources) Loop Diuretic Start: 3 End: 5 take 1 tablet by mouth once daily bumetanide (Bumex) 1 MG tablet Take 1 mg by mouth daily. 11/25/2022 07/07/2024 Discontinued (Therapy completed) Start: 08-16-2022 bumetanide 1 m g oral tablet Dose : 1 mg = 1 tab(s), Oral, qDay Start Date: 08/25/22 Status: Ordered Start: 06-19-2022 bumetanide 1 m g oral tablet Dose : 1 mg = 1 tab(s), Oral, Daily, # 90 tab(s), 3 Refill(s), Pharmacy: [facility]/pharmacy #[id number], 188, cm, 06/19/22 8:56:00 EST, Height Start Date: 06/19/22 Status: Ordered Start: 09-24-2021 bumetanide 1 m g oral tablet See Instructions, 1 tab(s) Oral qMon Thurs, # 30 tab(s), 3 Refill(s), other reason (Rx) Start Date: 12/17/21 Status: Ordered Start: 06-16-2021 bumetanide 1 m g oral tablet Dose : 1 mg = 1 tab(s), Oral, BID, # 180 tab(s), 3 Refill(s), Pharmacy: [facility]/pharmacy #[id number], 188, cm, 06/16/21 6:53:00 EST, Height, kg, 06/16/21 6:53:00 EST, Dosing Weight Start Date: 06/16/21 Status: Ordered Start: 03-19-2021 bumetanide 1 m g oral tablet Dose : 1 mg = 1 tab(s), Oral, Every other day, # 90 tab(s), 3 Refill(s), Pharmacy: [facility]/pharmacy #[id number], 188, cm, 03/19/21 11:40:00 EST, Height, kg, 03/19/21 11:40:00 EST, Dosing Weight Start Date: 03/19/21 Status: Ordered calcium chloride 0.0014 meq/ ml / potassium chloride 0.004 meq/ml / sodium chloride 0.103 meq/ml / sodium lactate 0.028 meq/ml injectable solution (10 sources) Start: 06-26-2024 End: 06-26-2024 500 mL, IntraVENous, at 250 mL/hr, Administer over 2 Hours, Once, On Wed06/26/24 at 0700, For 1 dose Start: 06-23-2024 End: 06-23-2024 1,000 mL, IntraVENous, at 50 0 mL/hr, Administer over 2 Hours, Once, On Wed06/23/24 at 1900, For 1 dose Start: 06-21-2024 End: 06-21-2024 take 125 mL intravenously every hour 125 mL/hr, IntraVENous, Continuous, Starting on Wed06/21/24 at 1015, Recovery (only) carvedilol 25 mg oral tablet (20 sources) alpha-Adrenergic Mimi, beta-Adrenergic Mimi Start: 03-24-2021 End: 06-26-2024 take 1 tablet by mouth twice daily Carvedilol (Coreg) 25 mg tablet Discontinued 25 mg PO TWICE A DAY September 16, 2023 2:14pm September 16, 2023 2:29pm Start: 08-09-2020 End: 09-16-2023 take 1 tablet by mouth once daily Carvedilol (Coreg) 25 mg Tablet Discontinued 25 mg PO DAILY August 09, 2020 12:00am September 16, 2023 2:17pm Comment on above: Take 25 mg by mouth twice daily with meals. 0.4 ml enoxaparin sodium 100 mg/ml prefilled syringe (2 sources) Low Molecular Weight Heparin Start: 2024 End: 2024 inject 40 mg by subcutaneous injection every twenty-four hours 40 mg, SubCUTAneous, Every 24 hours scheduled (Daily), First dose on Wed06/22/24 at 1500, Phase II/On Unit, Indication of Use: Prophylaxis-DVT/PE, Indications: Prophylaxis of Venous Thromboembolism 0.5 ml heparin sodium, porcine [id number] unt/ml prefilled syringe (2 sources) Unfractionated Heparin, Anti-coagulant Start: 2024 End: 2024 inject 1 dose by subcutaneous injection every two hours 5,000 Units, SubCUTAneous, Once, On Wed06/21/24 at 0600, For 1 dose, Preprocedure, Administer 2 hours prior to scheduled procedure 1 ml hydrALAZINE hydrochloride 20 mg/ml injection (2 sources) Arteriolar Vasodilator Start: 2024 End: 2024 take 10 mg intravenously every six hours as needed for hypertension 10 mg, IntraVENous, Every 6 hours PRN, high blood pressure, second line for SBP>160, hold for HR>105, Starting on Wed06/22/24 at 1535 1 ml HYDROmorphone hydrochloride 1 mg/ml cartridge (2 sources) Opioid Agonist Start: 2024 End: 2024 0.5 mg, IntraVENous, Every 5 min PRN, severe pain (7-10), Starting on Wed06/21/24 at 1014, For 4 doses, Recovery (only), Phase I and Phase II- Initial therapy for severe pain (7-10). Restricted to a 90 minute time frame starting when the patient can verbally state their pain score. If after 2 doses the pain score does not decrease by more than one point, then call the provider. If oral meds are utilized, do not return to initial therapy medications. HYDROmorphone (Dilaudid) injection 0.25 mg (2 sources) Start: 2024 End: 2024 take 0.25 mg intravenously every four hours as needed for pain HYDROmorphone (Dilaudid) injection 0.25 mg labetalol hydrochloride 5 mg/ml injectable solution (2 sources) beta-Adrenergic Mimi Start: 2024 End: 2024 take 10 mg intravenously every six hours as needed for hypertension 10 mg, IntraVENous, Every 6 hours PRN, high blood pressure, Starting on Marlene 06/22/24 at 1535, First line for SBP>160, hold for HR 1 ml naloxone hydrochloride 0.4 mg/ml injection (2 sources) Opioid Antagonist Start: 2024 End: 2024 0.4 mg, IntraVENous, Every 5 min PRN, opioid reversal, respiratory depression, Starting on 06/21/24 at 1525, +++ For RR ondansetron ODT (Zofran-ODT) disintegrating tablet 4 mg (2 sources) Start: 2024 End: 2024 take 1 tablet by mouth every eight hours as needed for nausea and vomiting ondansetron ODT (Zofran-ODT) disintegrating tablet 4 mg oxyCODONE hydrochloride 5 mg oral tablet (18 sources) Opioid Agonist Start: 2024 End: 2024 oxyCODONE 5 mg oral tablet ( IMMEDIATE release ) Dose : 5 mg = 1 tab(s), Oral, q8h, PRN as needed for pain, # 90 tab(s), 0 Refill(s), Pharmacy: [facility], Lumbar radiculitis Spinal stenosis, lumbar, 188, cm, 06/30/24 7:48:00 EDT, Height, 111, kg, 06/30/24 7:48:00 EDT, Dosing Weight Start Date: 06/30/24 Stop Date: 07/30/24 Status: Ordered Quantity: 90.0 Unit: tab(s) Repeat number: 1 Indications: Spinal stenosis, lumbar region without neurogenic claudication; Radiculopathy, lumbar region; Start: 06-21-2024 End: 06-26-2024 take 1 tablet by mouth every four hours as needed for pain oxyCODONE (Roxicodone) immediate release tablet 5 mg Start: 08-25-2023 End: 09-24-2023 oxyCODONE 5 mg oral tablet ( IMMEDIATE release ) Dose : 5 mg = 1 tab(s), Oral, q6hr, # 120 tab(s), 0 Refill(s), [facility]: [id number], Lumbar radiculitis Spinal stenosis, lumbar, 188, cm, 08/25/23 9:08:00 EDT, Height, 109, kg, 08/25/23 9:08:00 EDT, Dosing Weight Start Date: 08/25/23 Stop Date: 09/24/23 Status: Ordered Start: 07-12-2023 End: 08-11-2023 oxyCODONE 5 mg oral tablet ( IMMEDIATE release ) Dose : 5 mg = 1 tab(s), Oral, q4h, X 30 day(s), # 180 tab(s), 0 Refill(s), 08/11/23 2:39:00 PM EDT, [facility]: [facility][id number], Lumbar radiculitis Spinal stenosis, lumbar, 188, cm, 07/12/23 7:51:00 EDT, Height, 112.9, kg, 07/12/23 7:51:00 EDT, Dosing Weight Start Date: 07/12/23 Stop Date: 08/11/23 Status: Ordered Start: 05-24-2023 End: 06-23-2023 oxyCODONE 5 mg oral tablet ( IMMEDIATE release ) Dose : 5 mg = 1 tab(s), Oral, q4h, PRN for pain, X 30 day(s), # 180 tab(s), 0 Refill(s), 06/23/23 9:14:00 AM EDT, [facility]: [facility] #[id number], Lumbar radiculitis Spinal stenosis, lumbar, 188, cm, 05/24/23 8:55:00 EST, Height, 100, kg, 05/24/23 8:55:00 EST, Dosing Weight Start Date: 05/24/23 Stop Date: 06/23/23 Status: Ordered Start: 03-29-2023 End: 04-28-2023 oxyCODONE 5 mg oral tablet ( IMMEDIATE release ) Dose : 5 mg = 1 tab(s), Oral, q4h, PRN for pain, X 30 day(s), # 180 tab(s), 0 Refill(s), 04/28/23 12:39:00 PM EST, Pharmacy: [facility] #[id number], Lumbar radiculitis Spinal stenosis, lumbar, 188, cm, 03/29/23 12:24:00 EST, Height, 106.2, kg, 03/29/23 12:24:00 EST, Dosing Weight Start Date: 03/29/23 Stop Date: 04/28/23 Status: Ordered End: 07-14-2024 take 2 tablets by mouth every eight hours as needed for pain oxyCODONE (Roxicodone) 5 MG immediate release tablet Take 10 mg by mouth every 8 hours as needed for severe pain (7-10). 07/14/2024 Discontinued (Therapy completed) polyethylene glycol 3350 12970 mg powder for oral solution (2 sources) Osmotic Laxative Start: 06-21-2024 End: 06-26-2024 take 1 dose by mouth every twenty-four hours for constipation 17 g, Oral, Daily, First dose on Wed06/21/24 at 1600, Phase II/On Unit, 1st line for treatment of constipation - give scheduled if no bowel movement in past 24 hours. 1000 ml potassium chloride 0.02 meq/ml / sodium chloride 4.5 mg/ml injection (2 sources) Start: 06-23-2024 End: 06-25-2024 take 50 mL intravenously every hour 50 mL/hr, IntraVENous, Continuous, Starting on Wed06/23/24 at 1615 5 ml sodium chloride 9 mg/ml injection (6 sources) Start: 06-21-2024 End: 06-26-2024 10 mL, IntraVENous, Every 12 hours scheduled (2 times per day), First dose on Wed06/21/24 at 2100, Phase II/On Unit Start: 06-21-2024 End: 06-26-2024 Start: 06-21-2024 End: 06-26-2024 traMADol hydrochloride 50 mg oral tablet (6 sources) Opioid Agonist Start: 01-06-2021 traMADol 50 mg oral tablet Dose : 50 mg = 1 tab(s), Oral, q6hr, PRN as needed for pain, 0 Refill(s), 110 Start Date: 01/06/21 Status: Ordered Problems Active Problems Problem Classification Problem Date Documented Date Episodic/Chronic Abdominal pain (20 sources) Abdominal pain; Translations: [Unspecified abdominal pain] Onset: 12-21-2023 Resolved: 02-04-2024 Episodic Aortic; peripheral; and visceral artery aneurysms (20 sources) Aneurysm of thoracic aorta; Translations: [Aortic root dilatation] Onset: 12-04-2020 09-15-2019 Chronic Cardiac dysrhythmias (20 sources) Persistent atrial fibrillation; Translations: [Other persistent atrial fibrillation] Onset: 12-04-2020 Resolved: 02-04-2024 05-18-2019 Chronic Comment on above: Patient denies CP. N o SOB. Has problems with scoliosis. Will get 5 epidural injections tomorrow. No lightheadedness. No dizziness. No palpitations. No syncope. Patient developed atrial fibrillation with RVR when hospitalized 10/17/2018 to 10/20/2018. Had epidural injection 12/15/2018 and 02/09/2019. Cardiac dysrhythmias (1 source) Bradycardia; Translations: [Bradycardia, unspecified] 09-16-2023 Episodic Chronic kidney disease (20 sources) Chronic kidney disease stage 2; Translations: [Chronic kidney disease, stage 2 (mild)] Onset: 12-04-2020 05-18-2019 Chronic Comment on above: Serum Cr 1.32 on 12/11 Serum Cr 1.52 on 01/19/2019 Chronic kidney disease (1 source) Chronic kidney disease; Translations: [Chronic kidney disease, stage 3 unspecified] Onset: 05-03-2024 Coagulation and hemorrhagic disorders (20 sources) Thrombocytopenic disorder; Translations: [Thrombocytopenia, unspecified] Onset: 12-04-2020 02-03-2024 Chronic Conduction disorders (20 sources) Right bundle branch block; Translations: [Unspecified right bundle-branch block] Onset: 01-06-2024 05-18-2019 Chronic Congestive heart failure; nonhypertensive (20 sources) Acute on chronic systolic heart failure; Translations: [Heart failure with reduced ejection fraction] Onset: 12-04-2020 05-18-2019 Chronic Comment on above: Had CP 10/17/2018 Card iac cath 10/18/2018 RCA 100% POLYETHYLENE COMBINER-appearing 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 TTE 10/18/2018 EF 40-45% Lexiscan nuclear 10/20/2018 reversible inferior, inferolateral, and anterolateral ischemia EF26% pBNPT 3653 on 12/07/2018 Patient developed atrial fibrillation with RVR when hospitalized 10/17/2018 to 10/20/2018. Had epidural injection 12/15/2018. Has epidural injections every 90 days. Feels better. Lost 19 lfrom 12/07/2018 to 12/21/2018. pBNPT 12/21/2018 6729 pBNPT 5055 on 01/19/2019 pBNPT 2855 on 02/24/2019 Had epidural injection 12/15/2018 and 02/09/2019. Has epidural injections every 90 days. 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 TTE 10/18/2018 EF 40-45% Lexiscan nuclear 10/20/2018 reversible inferior, inferolateral, and anterolateral ischemia EF26% pBNPT 3653 on 12/07/2018 Patient developed atrial fibrillation with RVR when hospitalized 10/17/2018 to 10/20/2018. Had epidural injection 12/15/2018. Has epidural injections every 90 days. Feels better. Lost 19 lfrom 12/07/2018 to 12/21/2018. pBNPT 12/21/2018 6729 pBNPT 5055 on 01/19/2019 pBNPT 2855 on 02/24/2019 Had epidural injection 12/15/2018 and 02/09/2019. Has epidural injections every 90 days. 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 TTE 10/18/2018 EF 40-45% Lexiscan nuclear 10/20/2018 reversible inferior, inferolateral, and anterolateral ischemia EF26% Deficiency and other anemia (20 sources) Anemia; Translations: [Anemia, unspecified] Onset: 01-06-2024 01-05-2021 Episodic Diabetes mellitus with complications (20 sources) Chronic kidney disease due to type 2 diabetes mellitus; Translations: [Type 2 diabetes mellitus with diabetic chronic kidney disease] Onset: 12-04-2020 02-03-2024 Chronic Diabetes mellitus without complication (20 sources) Newly diagnosed diabetes; Translations: [Type 2 diabetes mellitus] Onset: 01-06-2024 12-26-2020 Chronic Disorders of lipid metabolism (20 sources) Hyperlipidemia; Translations: [Hyperlipidemia, unspecified] Onset: 12-04-2020 09-14-2019 Chronic Essential hypertension (20 sources) Essential hypertension; Translations: [Essential (primary) hypertension] Onset: 12-18-2020 01-06-2024 Chronic Malaise and fatigue (20 sources) Fatigue; Translations: [Asthenia] Onset: 08-24-2022 01-06-2021 Episodic Osteoarthritis (20 sources) Arthritis of joint of left shoulder region; Translations: [Primary osteoarthritis, left shoulder] Onset: 12-02-2021 Chronic Other acquired deformities (20 sources) Kyphoscoliosis and scoliosis 05-18-2019 Chronic Other acquired deformities (20 sources) Scoliosis deformity of spine; Translations: [Scoliosis, unspecified] Onset: 12-04-2020 Chronic Other acquired deformities (20 sources) Kyphoscoliosis deformity of spine; Translations: [Scoliosis, unspecified] Onset: 01-06-2024 01-06-2024 Chronic Other acquired deformities (2 sources) Scoliosis, unspecified; Translations: [Scoliosis, unspecified] Onset: 03-31-2024 Chronic Other aftercare (2 sources) Long-term current use of anticoagulant; Translations: [custodial (current) use of anticoagulants] 02-04-2024 Episodic Other aftercare (2 sources) Postoperative visit; Translations: [Encounter for other specified surgical aftercare] 07-07-2024 Episodic Other and ill-defined heart disease (20 sources) Coronary artery fistula; 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] Onset: 01-06-2024 05-18-2019 Chronic Comment on above: From Proximal LAD to Main Pulmonary Artery/ Right Pulmonary Artery by cath 10/18/2018 Other and ill-defined heart disease (1 source) Aneurysm of coronary vessels; 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] Chronic Other and ill-defined heart disease (20 sources) Cardiomegaly; Translations: [Cardiomegaly] Onset: 12-18-2020 01-06-2024 Chronic Other circulatory disease (20 sources) Blood vessel finding; Translations: [Presence of other vascular implants and grafts] Onset: 12-04-2020 01-06-2024 Chronic Other circulatory disease (1 source) History of cerebrovascular accident; Translations: [Personal history of transient ischemic attack (TIA), and cerebral infarction without residual deficits] 12-25-2021 Episodic Other connective tissue disease (20 sources) H/O: back problem 05-18-2019 Episodic Other connective tissue disease (1 source) Pain in left leg; Translations: [Pain in left leg] Onset: 10-20-2024 Episodic Other liver diseases (2 sources) Cirrhosis of liver; Translations: [Unspecified cirrhosis of liver] 02-04-2024 Chronic Other nervous system disorders (20 sources) Walking disability; Translations: [Difficulty in walking, not elsewhere classified] Onset: 02-03-2024 Chronic Other nervous system disorders (20 sources) Chronic pain; Translations: [Other chronic pain] Onset: 09-16-2023 Chronic Comment on above: arthritis/had stem c ell treatment Other nutritional; endocrine; and metabolic disorders (20 sources) Body mass index 30+ - obesity; Translations: [Obesity, unspecified] Onset: 01-06-2024 05-18-2019 Chronic Comment on above: I discussed [facility] weight 195 lbs Other nutritional; endocrine; and metabolic disorders (20 sources) Cholesterol level - finding 05-18-2019 Chronic Comment on above: 10/18/2018 T chol 143, tig 82, HDL 37, LDL 90 Other nutritional; endocrine; and metabolic disorders (20 sources) Obese class I; Translations: [Obesity, Class I, BMI 30-34.9] Onset: 12-24-2021 01-06-2024 Chronic Other nutritional; endocrine; and metabolic disorders (6 sources) Overweight in adulthood with body mass index of 25 or more but less than 30 05-27-2023 Episodic Other screening for suspected conditions (not mental disorders or infectious disease) (20 sources) Increased glucose level; Translations: [Patient encounter status] Onset: 07-05-2008 05-18-2019 Episodic Comment on above: glu 143 on 10/18/2018 glu 102 on 12/07/2018 glu 147 on 12/21/2018 Residual codes; unclassified (1 source) Past history of procedure; Translations: [Other specified postprocedural states] Onset: 08-24-2022 Episodic Residual codes; unclassified (1 source) History of cardioversion; Translations: [Personal history of other medical treatment] 09-16-2023 Episodic Comment on above: [facility]18/[facility] Respiratory failure; insufficiency; arrest (adult) (20 sources) Dependence on supplemental oxygen; Translations: [Dependence on supplemental oxygen] Onset: 12-04-2020 01-06-2024 Chronic Spondylosis; intervertebral disc disorders; other back problems (1 source) Other spondylosis, lumbar region; Translations: [Other spondylosis, lumbar region] Onset: 12-08-2024 Chronic Spondylosis; intervertebral disc disorders; other back problems (20 sources) Lumbar radiculopathy; Translations: [Radiculopathy, lumbar region] Onset: 12-04-2020 Episodic Thyroid disorders (1 source) Thyroid dysfunction; Translations: [Disorder of thyroid, unspecified] 09-16-2023 Episodic Unclassified (1 source) Dorsalgia, unspecified / M54.9(ICD-10) Onset: 10-05-2017 Unclassified (1 source) Spondylolisthesis, lumbosacral region / M43.17(ICD-10) Onset: 10-05-2017 Unclassified (1 source) Spondylolisthesis, site unspecified / M43.10(ICD-10) Onset: 10-05-2017 Unclassified (1 source) Scoliosis, unspecified / M41.9(ICD-10) Onset: 10-05-2017 Unclassified (20 sources) Drug therapy finding 09-25-2021 Unclassified (20 sources) Patient encounter status 07-14-2021 Unclassified (2 sources) New Patient; Translations: [New Patient] Onset: 07-14-2024 Unclassified (2 sources) Low back pain, unspecified; Translations: [Low back pain, unspecified] Onset: 10-20-2024 Past or Other Problems Problem Classification Problem Date Documented Date Episodic/Chronic Abdominal hernia (20 sources) Inguinal hernia; Translations: [Unilateral inguinal hernia, without obstruction or gangrene, not specified as recurrent] Onset: 07-05-2008 Resolved: 07-14-2024 07-05-2008 Episodic Acute and unspecified renal failure (20 sources) Acute renal failure syndrome; Translations: [Acute kidney failure, unspecified] Onset: 02-03-2024 Episodic Acute cerebrovascular disease (20 sources) Cerebral infarction due to embolism of cerebral arteries; Translations: [Cerebral infarction due to embolism of unspecified cerebral artery] Onset: 12-04-2020 Resolved: 02-04-2024 02-04-2024 Chronic Acute posthemorrhagic anemia (20 sources) Acute posthemorrhagic anemia; Translations: [Acute posthemorrhagic anemia] Onset: 12-04-2020 Episodic Conditions associated with dizziness or vertigo (20 sources) Dizziness and giddiness; Translations: [Dizziness and giddiness] Onset: 09-16-2023 Episodic Immunizations and screening for infectious disease (20 sources) Has influenza vaccination at hospital; Translations: [Pneumococcal vaccination given] Onset: 04-12-2018 05-18-2019 Episodic Comment on above: Verified 2019 current - verified 2 019 Other and ill-defined cerebrovascular disease (20 sources) Cerebral ischemia; Translations: [Cerebral ischemia] Onset: 12-04-2020 Resolved: 02-04-2024 02-04-2024 Chronic Other and unspecified benign neoplasm (3 sources) History of polyp of colon; Translations: [Personal history of colonic polyps] Onset: 05-29-2014 05-29-2014 Episodic Other circulatory disease (20 sources) Orthostatic hypotension; Translations: [Orthostatic hypotension] Onset: 12-18-2020 01-06-2024 Episodic Other nervous system disorders (20 sources) Incoordination; Translations: [Other lack of coordination] Onset: 02-03-2024 Episodic Paralysis (20 sources) Left hemiparesis; Translations: [Hemiplegia of left nondominant side] Onset: 12-04-2020 Resolved: 02-04-2024 12-26-2020 Chronic Pneumonia (except that caused by tuberculosis or sexually transmitted disease) (20 sources) Lobar pneumonia; Translations: [Lobar pneumonia, unspecified organism] Onset: 12-04-2020 Resolved: 02-04-2024 02-04-2024 Episodic Residual codes; unclassified (20 sources) Insomnia; Translations: [Insomnia, unspecified] Onset: 12-04-2020 01-06-2024 Episodic Skin and subcutaneous tissue infections (20 sources) Cellulitis; Translations: [Cellulitis, unspecified] Onset: 12-05-2021 Episodic Results Test Name Value Interpretation Reference Range Facility [id number] 10-19-2024 [facility] Misc. COMMENT Normal . [facility] Comment on above: Order Comment: [id number] MED TOX RT Result Comment: Test Ordered: [id number] Amphetamines Screen, Urine Negative ng/mL UI Reference Range: Idtsmd=647 Amphetamine test includes Amphetamine and Methamphetamine. Barbiturates Negative ng/mL UI Reference Range: Tuohht=187 Benzodiazepines Negative ng/mL UI Reference Range: Obkopw=340 Cocaine (Metab.), Urine Negative ng/mL UI Reference Range: Rzzgxd=978 Opiates Negative ng/mL UI Reference Range: Illfin=387 Opiate test includes Codeine, Morphine, Hydromorphone, Hydrocodone. 6-Acetylmorphine, Urine Negative ng/mL UI Reference Range: Cutoff=10 Oxycodone/Oxymorphone, Urine Negative ng/mL UI Reference Range: Zitznd=704 Test includes Oxycodone and Oxymorphone PCP, Urine Negative ng/mL UI Reference Range: Cutoff=25 Methadone Screen, Urine Negative ng/mL UI Reference Range: Hxauut=582 Propoxyphene, Urine Negative ng/mL UI Reference Range: Xffvoh=386 Fentanyl, Urine Negative ng/mL UI Reference Range: Cutoff=2.0 Test includes Fentanyl and Norfentanyl This test was developed and its performance characteristics determined by [facility]. It has not been cleared or approved by the Food and Drug Administration. Tramadol Negative ng/mL UI Reference Range: Hkolat=352 Buprenorphine, Urine Negative ng/mL UI Reference Range: Cutoff=10 Creatinine, Urine 176.2 mg/dL UI Reference Range: 20.0-300.0 pH, Urine 5.9 UI Reference Range: 4.5-8.9 Performed at: [facility] [address] [place] [id number] [employer] Operator: Se King PhD, Phone: [phone] Performed at: [address] [id number] [employer] Operator: Manuel Sunshine PhD, Phone: [phone] Performed By: #### L 505.5000, [id number] #### [facility] [address] [place], [address] Amphetamine detection with 1 000 ng/mL as cutoffOrdered By: Jerrod Reyes on 10-18-2024 Amphetamines Screen method >1000 ng/mL Ql (U) Negative < 200 ng/mL [facility] No Panel InformationOrdered By: Jerrod Reyes on 10-18-2024 Urine Buprenorphine Qualitative Negative < 200 ng/mL [facility] Urine Oxycodone Screen Negative < 100 ng/mL [facility] Quantitative urine opiates m easurementOrdered By: Jerrod Reyes on 10-18-2024 Opiates Ql (U) Negative < 300 ng/mL [facility] Screening urine fentanyl hattie surementOrdered By: Jerrod Reyes on 10-18-2024 fentaNYL Screen Ql (U) Negative [facility] Urine Drug Screen (VISTA)on 10-18-2024 AMPHETAMINES Negative Normal <1000 ng/mL [facility] Comment on above: Order Comment: UNK Performed By: #### L 505.5000, [id number] #### [facility] [address] [place] [place], [address] BARBITIURATES Negative Normal < 200 ng/mL [facility] Comment on above: Order Comment: UNK Performed By: #### L 505.5000, [id number] #### [facility] [address] [place], [address] BENZODIAZIPINE Negative Normal < 200 ng/mL [facility] Comment on above: Order Comment: UNK Performed By: #### L 505.5000, [id number] #### [facility] [address] [place], [address] BUP Ur Drug Scr Negative Normal < 200 ng/mL [facility] Comment on above: Order Comment: UNK Performed By: #### L 505.5000, [id number] #### [facility] [address] [place], [address] COCAINE Negative Normal < 300 ng/mL [facility] Comment on above: Order Comment: UNK Performed By: #### L 505.5000, [id number] #### [facility] [address] [place], [address] Fentanyl Negative Normal [facility] Comment on above: Order Comment: UNK Performed By: #### L 505.5000, [id number] #### [facility] [address] [place], [address] METHADONE Negative Normal < 300 ng/mL [facility] Comment on above: Order Comment: UNK Performed By: #### L 505.5000, [id number] #### [facility] [address] [place], [address] OPIATES Negative Normal < 300 ng/mL [facility] Comment on above: Order Comment: UNK Performed By: #### L 505.5000, [id number] #### [facility] [address] [place], [address] OXYCODONE Negative Normal < 100 ng/mL [facility] Comment on above: Order Comment: UNK Performed By: #### L 505.5000, [id number] #### [facility] [address] [place], [address] PCP Negative Normal < 25 ng/mL [facility] Comment on above: Order Comment: UNK Performed By: #### L 505.5000, [id number] #### [facility] [address] [place], [place], [address] THC Positive Normal < 50 ng/mL [facility] Comment on above: Order Comment: UNK Result Comment: If c onfirmation testing is needed, a separate order will be required to send out testing to the reference laboratory. Performed By: #### L 505.5000, [id number] #### [facility] [address] [place], [place], [address] Urine benzodiazepine levelOr dered By: Jerrod Reyes on 10-18-2024 Benzodiazepines Ql (U) Negative < 200 ng/mL [facility] Urine cocaine levelOrdered B y: Jerrod Reyes on 10-18-2024 Cocaine Ql (U) Negative < 300 ng/mL [facility] Urine xbyhz-1-gsmhxwpnbopttw abinol (THC) measurementOrdered By: Jerrod Reyes on 10-18-2024 Cannabinoids Screen Ql (U) Positive < 50 ng/mL [facility] Comment on above: If confirmation test ing is needed, a separate order will be required to send out testing to the reference laboratory. Urine phencyclidine (PCP) de tectionOrdered By: Jerrod Reyes on 10-18-2024 Phencyclidine Ql (U) Negative < 25 ng/mL [facility] 36on 07-27-2024 36 Called and got May 's VM stating it was a confidential VM. I did leave below message. [facility] 36 Ok to be discontinue d from home care from out standpoint, however they need to reach out to PCP for BP concerns. Thanks [facility] 36on 07-26-2024 36 Name of caller: Seth álvarez Contact phone number: [phone] Relationship to Patient: [facility] Provider: Dr Cardenas Practice: [facility] Chief Complaint/Reason for Call: Caller saw patient today for a visit and his diastolic was a little elevated (144/98) -- he is requesting to be released from home care - his incision is healing with no issues. Phone number verified. Best time of day caller can be reached: AM Patient advised that office/PCP has 24-48 business hours to return their call: No Normal [facility] Office Visiton 07-14-2024 Follow-up visit [id number] Almas Ellis 1950 M Date Provider Department Center 07/14/2024 [id number] E[facility] None Family History Problem Relation Age of Onset Cancer Mother Cancer Father Family Status - Relation Status Age at Mother Father Level of Service:24014 CO OFFICE/OUTPATIENT ESTABLISHED SF MDM 10 MIN Reason for Visit and Comments: New Patient [542] - staple removal Normal [facility] Progress Noteon 07-14-2024 Progress Note We want to inform yo u that your patient's blood pressure was noted to be elevated in our office today. We thank you for trusting us with your patient's health. Last BP: BP Readings from Last 3 Encounters: 07/14/24 (!) 153/97 07/07/24 123/79 06/26/24 147/87 Normal [facility] Progress Note [facility] Advanced Laparoscopic Surgery Patient Name: Jacky Ellis Date: 07/14/24 S: Jacky Ellis follows up for a post operative visit after undergoing an open recurrent incisional hernia repair w/ NEELA, mesh, retrorectus release, SB lesion excision with Dr. Cardenas on 06/21/24. He is doing well without any major postoperative complications. His pain control is well controlled and he is not asking for narcotic refills. His bowel function has returned to normal without constipation or diarrhea. His appetite is returning to normal and he does not report any dysphagia, nausea or vomiting. Overall, he states that he's feeling well and pleased with his recovery. Presents today for staple removal - states that this site is very itchy and irritating, but otherwise no concerns today. Allergies Allergen Reactions Dapagliflozin Other Penicillins Other SKIN PEELS OFF PALMS OF HANDS AND FEET, YEARS AGO hands and feet peeled and bled Current Outpatient Medications Medication Sig Dispense Refill amiodarone (Pacerone) 200 MG tablet Take 200 mg by mouth 2 times daily. atorvastatin (Lipitor) 40 MG tablet Take 40 mg by mouth daily. carvedilol (Coreg) 25 MG tablet Take 25 mg by mouth 2 times daily. Entresto 24-26 MG tablet Take 1 tablet by mouth 2 times daily. metoprolol succinate XL (Toprol-XL) 25 MG 24 hr tablet Take 25 mg by mouth daily. potassium chloride CR (Klor-Con) 10 MEQ ER tablet Take 10 mEq by mouth daily. tiZANidine (Zanaflex) 4 MG tablet Take 4 mg by mouth 3 times daily as needed. Xarelto 15 MG tablet Take 15 mg by mouth with evening meal. No current facility-administered medications for this visit. Past Medical History: Diagnosis Date Arthritis Back pain lower Heart attack (HCC) Hypertension Lobar pneumonia, unspecified organism (HCC) 12/04/2020 Scoliosis Stroke (HCC) 2020 patient denies h/o CVA Past Surgical History: Procedure Laterality Date ABLATION FOR ATRIAL FIBRILLATION (HISTORICAL) CARDIAC SURGERY 2020 COLONOSCOPY CORONARY ARTERY BYPASS GRAFT DENTAL SURGERY HERNIA REPAIR Right 1958 [facility] INCISIONAL HERNIA REPAIR 06/21/2024 [place]; open rec repair w/ NEELA, mesh, retrorectus release RT/LT HEART CATHETERS (HISTORICAL) TRIPLE BYPASS THREE VALUES SHOULDER SURGERY SMALL INTESTINE SURGERY 08/2022 SBR SPINAL CORD STIMULATOR IMPLANT 2022 TONSILLECTOMY 1960 TOTAL SHOULDER ARTHROPLASTY UMBILICAL HERNIA REPAIR 08/2022 [place]: BP (!) 136/91 (BP Location: Right arm, Patient Position: Sitting, BP Cuff Size: Adult) Pulse 93 Temp 36.8 ?C (98.2 ?F) (Temporal) Ht 6' 2 (1.88 m) Wt 249 lb 8 oz (113 kg) SpO2 93% BMI 32.03 kg/m? Physical Exam: The wounds are healing well. There is no evidence of infection, seroma, erythema or hernia; abdomen soft, non-tender; arun intact with mild reactive erythema, no drainage Pathology: Final Diagnosis A. SOFT TISSUE, INTESTINAL MASS, BIOPSY - FIBROUS TISSUE WITH COLLECTION OF PIGMENTED AND FOAMY MACROPHAGES AND RARE GIANT CELLS, CONSISTENT WITH REACTIVE PROCESS. Comment: The pigmented material present is consistent with hemosiderin, as evidenced by positive staining with an iron stain. A CD163 stain highlights the involved macrophages while a pankeratin stain is positive in surface lining mesothelial cells. No evidence of an invasive epithelial process is identified in these samplings. B. SOFT TISSUE, DEBRIDEMENT - SKIN AND SUBCUTANEOUS TISSUE WITH CHANGES SUGGESTIVE OF HERNIA SAC OR CYST. Assessment/Plan Jacky was seen today for new patient. Diagnoses and all orders for this visit: Encounter for postoperative care (Primary) Jacky Ellis is a 73 y.o. male presenting for postoperative evaluation after undergoing an open recurrent incisional hernia repair w/ NEELA, mesh, retrorectus release, SB lesion excision on 06/21/24. He may advance diet as tolerated. He may increase their activity to a normal level yet refrain from lifting greater than 40# for one month after surgery. All arun removed. Follow-up in 6 months. The patient was seen and examined independently and relevant data reviewed by myself. A full chart review was performed. Patient Care Team: Hoda Grayson as PCP - General (Family Medicine) Sam Modi MD as Service Engine Repairer (Cardiology) Natalia Sargent MD (Pain Medicine) [facility] 36on 07-13-2024 36 Pt. Return phone sana mota. He will be at the [place] office at 11am and is willing to see Earline. [facility] [phone] 07-08-2024 [id number] Patient Choice Patient Name: JACKY ELLIS Date of : 1950 [facility] Office Visiton 07-07-2024 Follow-up visit [id number] Almas Ellis 1950 M Date Provider Department Center 07/07/2024 ANTIONE SALCEDO [facility] None Family History Problem Relation Age of Onset Cancer Mother Cancer Father Family Status - Relation Status Age at Mother Father Level of Service:62406 CO POSTOP FOLLOW UP VISIT RELATED TO ORIGINAL PX Reason for Visit and Comments: Follow-up [563710] [facility] Progress Noteon 07-07-2024 Progress Note [facility] Advanced Laparoscopic Surgery Patient Name: Jacky Ellis Date: 07/07/24 S: Jacky Ellis follows up for a post operative visit after undergoing an open recurrent incisional hernia repair w/ NEELA, mesh, retrorectus, excision of small bowel lesion on 06/21/24. He is doing well without any major postoperative complications. His pain control is well controlled and he is not asking for narcotic refills. His bowel function has returned to normal without constipation or diarrhea. His appetite is returning to normal and he does not report any dysphagia, nausea or vomiting. Allergies Allergen Reactions Dapagliflozin Other Penicillins Other SKIN PEELS OFF PALMS OF HANDS AND FEET, YEARS AGO hands and feet peeled and bled Current Outpatient Medications Medication Sig Dispense Refill amiodarone (Pacerone) 200 MG tablet Take 200 mg by mouth 2 times daily. atorvastatin (Lipitor) 40 MG tablet Take 40 mg by mouth daily. carvedilol (Coreg) 25 MG tablet Take 25 mg by mouth 2 times daily. Entresto 24-26 MG tablet Take 1 tablet by mouth 2 times daily. oxyCODONE (Roxicodone) 5 MG immediate release tablet Take 10 mg by mouth every 8 hours as needed for severe pain (7-10). Xarelto 15 MG tablet Take 15 mg by mouth with evening meal. No current facility-administered medications for this visit. Past Medical History: Diagnosis Date Arthritis Back pain lower Heart attack (HCC) Hypertension Lobar pneumonia, unspecified organism (HCC) 12/04/2020 Scoliosis Stroke (HCC) 2020 patient denies h/o CVA Past Surgical History: Procedure Laterality Date ABLATION FOR ATRIAL FIBRILLATION (HISTORICAL) CARDIAC SURGERY 2020 COLONOSCOPY CORONARY ARTERY BYPASS GRAFT DENTAL SURGERY HERNIA REPAIR Right [facility] OTHER SURGICAL HISTORY 06/21/2024 OPEN INCISIONAL HERNIA REPAIR WITH MESH RT/LT HEART CATHETERS (HISTORICAL) TRIPLE BYPASS THREE VALUES SHOULDER SURGERY SMALL INTESTINE SURGERY 08/2022 SBR SPINAL CORD STIMULATOR IMPLANT 2022 TONSILLECTOMY 1960 TOTAL SHOULDER ARTHROPLASTY UMBILICAL HERNIA REPAIR 08/2022 [place]: BP 123/79 (BP Location: Right arm, Patient Position: Sitting, BP Cuff Size: Adult long) Pulse 73 Temp 36.2 ?C (97.1 ?F) (Temporal) Ht 6' 2 (1.88 m) Wt 251 lb 14.4 oz (114 kg) BMI 32.34 kg/m? Physical Exam: The wounds are healing well. There is no evidence of infection, seroma, erythema or hernia Pathology: Final Diagnosis A. SOFT TISSUE, INTESTINAL MASS, BIOPSY - FIBROUS TISSUE WITH COLLECTION OF PIGMENTED AND FOAMY MACROPHAGES AND RARE GIANT CELLS, CONSISTENT WITH REACTIVE PROCESS. Comment: The pigmented material present is consistent with hemosiderin, as evidenced by positive staining with an iron stain. A CD163 stain highlights the involved macrophages while a pankeratin stain is positive in surface lining mesothelial cells. No evidence of an invasive epithelial process is identified in these samplings. B. SOFT TISSUE, DEBRIDEMENT - SKIN AND SUBCUTANEOUS TISSUE WITH CHANGES SUGGESTIVE OF HERNIA SAC OR CYST. Assessment/Plan Diagnoses and all orders for this visit: Encounter for postoperative care (Primary) Jacky Ellis is a 73 y.o. male presenting for postoperative evaluation after undergoing an open recurrent incisional hernia repair w/ NEELA, mesh, retrorectus, excision of small bowel lesion on 06/21/24. Patient self removed his drain yesterday. Stated it had minimal output. He removed the wound vac yesterday. He may advance diet as tolerated. He may increase their activity to a normal level yet refrain from lifting greater than 15# for one month after surgery. Follow-up 1 week for staple removal. The patient was seen and examined independently and relevant data reviewed by myself. A full chart review was performed. Patient Care Team: Hoda Grayson as PCP - General (Family Medicine) Sam Modi MD as Service Engine Repairer (Cardiology) Natalia Sargent MD (Pain Medicine) [facility] 3607-05-2024 36 Explained to the patient he should remove the device. He expressed understanding. He also was told he should come on Wednesday to his post op appt on wednesday [place] [id number] Today is day 14, so wound vac can come off today. If the device turns off or is not functioning, device should come off today anyway. Patient (or any assistance he has) may remove the entire wound vac dressing from his abdomen and throw it and the device away. Thanks. [facility] 36 Patient calling in t o let us know the prevenna wound vac as not removed blood for 48 hours. Patient would like to turn off machine. Has appt on Wednesday to have removed. [place] [address]on 06-27-2024 36 Home care called and stated the pt started that today. Just an informative call, no action required. [facility] [phone] 06-26-2024 [id number] SDOH completed with patient. Updated SDOH questionnaire. He denied any problems with food, utilities, housing or transportation. [facility] [phone] TCC received message from sx team regarding patient auth for IPR. TCC spoke with team. TCC in to speak with patient. TCC clarified with patient that his DCP is home with home care. Friend in room with patient and able to transport patient home. Patient is agreeable to home care. Sx team, home care and RN secure message regarding patient choice. [facility] BASIC METABOLIC PANELon 06-10 Anion gap [Moles/Vol] 8 mmol/L Normal 3-13 [facility] Comment on above: Performed By: #### L [id number] #### New Client Banking Services Clerk: ANJALI MALLORY ([phone]) [facility]) [address] [place] [address] Calcium [Mass/Vol] 8.7 mg/dL Low 8.8-10.0 [facility] Comment on above: Performed By: #### L [id number] #### New Client Banking Services Clerk: ANJALI MALLORY ([phone]) [facility]) [address] [place] [address] Chloride [Moles/Vol] 105 mmol/L Normal 98-107 [facility] Comment on above: Performed By: #### L [id number] #### New Client Banking Services Clerk: ANJALI MALLORY ([phone]) [facility] ([facility]) [address] [place] [address] [place] CO2 [Moles/Vol] 23 mmol/L Normal 23-31 [facility] Comment on above: Performed By: #### L [id number] #### New Client Banking Services Clerk: ANJALI MALLORY ([phone]) [facility]) [address] [place] [address] Creatinine [Mass/Vol] 1.55 mg/dL High 0.72-1.25 [facility] Comment on above: Performed By: #### L AB294 #### New Client Banking Services Clerk: ANJALI [phone]) [facility]) [address] [place] [address] GLOMERULAR FILTRATION RATE ML/MIN/1.73 SQ M.PREDICTED 46.7 mL/min/1.73m*2 Low >60.0 [facility] Comment on above: Result Comment: Calc ulation based on the Chronic Kidney Disease Epidemiology Collaboration (CKD-EPI) equation refit without adjustment for race Performed By: #### L [id number] #### New Client Banking Services Clerk: ANJALI MALLORY ([phone]) [facility]) [address] [place] [address] Glucose [Mass/Vol] 106 mg/dL Normal 82-115 [facility] Comment on above: Performed By: #### L [id number] #### New Client Banking Services Clerk: ANJALI MALLORY ([phone]) [facility]) [address] [place] [address] Potassium [Moles/Vol] 4.7 mmol/L Normal 3.5-5.1 [facility] Comment on above: Result Comment: [facility] potassium values may be up to 0.5 mmol/L lower than serum values. Performed By: #### L [id number] #### New Client Banking Services Clerk: ANJALI MALLORY ([phone]) [facility]) [address] [place] [address] Sodium [Moles/Vol] 136 mmol/L Normal 136-145 [facility] Comment on above: Performed By: #### L AB294 #### New Client Banking Services Clerk: ANJALI MALLORY ([phone]) [facility]) [address] [place] [address] [place] Urea nitrogen [Mass/Vol] 30 mg/dL High 9-23 [facility] Comment on above: Performed By: #### L [id number] #### New Client Banking Services Clerk: ANJALI MALLORY ([phone]) [facility]) [address] [place] [address] Basic metabolic 1998 panelon 06-26-2024 Anion gap [Moles/Vol] 8 mmol/L 3 - 13 mmol/L [facility] Calcium [Mass/Vol] 8.7 mg/dL Low 8.8 - 10. 0 mg/dL [facility] Chloride [Moles/Vol] 105 mmol/L 98 - 10 7 mmol/L [facility] CO2 [Moles/Vol] 23 mmol/L 23 - 31 mmol/L [facility] Creatinine [Mass/Vol] 1.55 mg/dL High 0.72 - 1.25 mg/dL [facility] GFR/1.73 sq M.predicted (S/P/Bld) [Vol rate/Area] 46.7 mL/min Low - PINF [facility] Comment on above: Calculation based on the Chronic Kidney Disease Epidemiology Collaboration (CKD-EPI) equation refit without adjustment for race Glucose [Mass/Vol] 106 mg/dL 82 - 115 mg/dL [facility] Interpretation and review of laboratory results Abnormal [facility] Potassium [Moles/Vol] 4.7 mmol/L 3.5 - 5.1 mmol/L [facility] Comment on above: Plasma potassium ganesh ues may be up to 0.5 mmol/L lower than serum values. Sodium [Moles/Vol] 136 mmol/L 136 - 145 mmol/L [facility] Urea nitrogen [Mass/Vol] 30 mg/dL High 9 - 23 mg/dL [facility] CBC (HEMOGRAM)on 06-26-2024 Erythrocyte distribution width (RBC) [Ratio] 13.3 % Normal 11.5-15.0 [facility] Comment on above: Performed By: #### L [id number] ####New Client Banking Services Clerk: ANJALI [phone])[address] Hematocrit (Bld) [Volume fraction] 44.5 % Normal 40.0-52.0 [facility] Comment on above: Performed By: #### L [id number] ####New Client Banking Services Clerk: ANJALI [phone])[facility] ([address] Hemoglobin (Bld) [Mass/Vol] 14.7 g/dL Normal 13.0-18.0 [facility] Comment on above: Performed By: #### L [id number] ####New Client Banking Services Clerk: ANJALI [phone])[facility])[address] [place] [address] IPF 1 Normal [facility] Comment on above: Performed By: #### L AB294 ####New Client Banking Services Clerk: ANJALI MALLORY ([phone])[facility] ([facility])[address] [place] [address] MCH (RBC) [Entitic mass] 31.3 pg Normal 26.0-34.0 [facility] Comment on above: Performed By: #### L AB294 ####New Client Banking Services Clerk: ANJALI MALLORY ([phone])[facility])[address] [place] [address] MCHC 33.0 % Normal 30.5-36.0 [facility] Comment on above: Performed By: #### L AB294 ####New Client Banking Services Clerk: ANJALI MALLORY ([phone])[facility])[address] [place] [address] MCV (RBC) [Entitic vol] 94.9 fL Normal 77.0-99.0 [facility] Comment on above: Performed By: #### L [id number] ####New Client Banking Services Clerk: ANJALI MALLORY ([phone])[facility])[address] [place] [address] Platelet mean volume (Bld) [Entitic vol] 9.5 fL Normal 9.0-12.7 [facility] Comment on above: Performed By: #### L AB294 ####New Client Banking Services Clerk: ANJALI MALLORY ([phone])[facility] ([facility])[address] [place] [address] Platelets (Bld) [#/Vol] 127 10*3/uL Low 140-440 [facility] Comment on above: Performed By: #### L [id number] ####New Client Banking Services Clerk: ANJALI MALLORY ([phone])[facility])[address] [place] [address] RBC (Bld) [#/Vol] 4.69 10*6/uL Normal 4.40-5.90 [facility] Comment on above: Performed By: #### L [id number] ####New Client Banking Services Clerk: ANJALI MALLORY ([id number])[facility] ([facility])[address] [place] [address] WBC (Bld) [#/Vol] 5.7 10*3/uL Normal 3.6-10.7 [facility] Comment on above: Performed By: #### L [id number] ####New Client Banking Services Clerk: ANJALI MALLORY ([phone])[facility] ([facility])[address] [place] [address] CBC panel Auto (Bld)on 06-26 Erythrocyte distribution width (RBC) [Ratio] 13.3 % 11.5 - 15.0 % [facility] Hematocrit (Bld) [Volume fraction] 44.5 % 40.0 - 52.0 % [facility] Hemoglobin (Bld) [Mass/Vol] 14.7 g/dL 13.0 - 18.0 g/dL [facility] Interpretation and review of laboratory results Abnormal [facility] IPF 1 [facility] MCH (RBC) [Entitic mass] 31.3 pg 26.0 - 34.0 pg [facility] MCHC (RBC) [Mass/Vol] 33 % 30.5 - 36.0 % [facility] MCV (RBC) [Entitic vol] 94.9 fL 77.0 - 99.0 fL [facility] Platelet mean volume (Bld) [Entitic vol] 9.5 fL 9.0 - 12.7 fL [facility] Platelets (Bld) [#/Vol] 127 10*3/uL Low 140 - 440 10*3/uL [facility] RBC (Bld) [#/Vol] 4.69 10*6/uL 4.40 - 5.9 0 10*6/uL [facility] WBC (Bld) [#/Vol] 5.7 10*3/uL 3.6 - 10.7 10*3/uL [facility] Progress Noteon 06-26-2024 Progress Note PHYSICAL THERAPY [facility] Name/MRN: Jacky Ellis ([id number]) Date: 06/26/2024 Chart review completed this date. PT attempted. Pt with Medical Provider at this time. PT will continue to follow. Will re-attempt another time/date as schedule permits. Hayley Browne, TOOL KEEPER Normal [facility] 30on 06-25-2024 30 Problem: Pain - Adul t Goal: Verbalizes/displays adequate comfort level or baseline comfort level Outcome: Progressing Problem: Safety - Adult Goal: Free from fall injury Outcome: Progressing Problem: Problem Interventions Goal: Assess Nutritional Intake Outcome: Progressing Normal [facility] 30 Tolerating diet ambulating in room. Feels good. Normal [facility] 30 Patient states madie r pain control and he slept 4 hours last pm, wants food secure message sent to surgery. Normal [facility] BASIC METABOLIC PANELon 06-10 Anion gap [Moles/Vol] 9 mmol/L Normal 3-13 [facility] Comment on above: Performed By: #### L [id number] #### New Client Banking Services Clerk: ANJALI MALLORY ([phone]) [facility]) [address] [place] [address] Calcium [Mass/Vol] 9.5 mg/dL Normal 8.8-10.0 [facility] Comment on above: Performed By: #### L [id number] #### New Client Banking Services Clerk: ANJALI MALLORY ([phone]) [facility]) [address] [place] [address] Chloride [Moles/Vol] 103 mmol/L Normal 98-107 [facility] Comment on above: Performed By: #### L [id number] #### New Client Banking Services Clerk: ANJALI MALLORY ([phone]) [facility] ([facility]) [address] [place] [address] CO2 [Moles/Vol] 25 mmol/L Normal 23-31 [facility] Comment on above: Performed By: #### L [id number] #### New Client Banking Services Clerk: ANJALI MALLORY ([phone]) [facility]) [address] [place] [address] Creatinine [Mass/Vol] 1.32 mg/dL High 0.72-1.25 [facility] Comment on above: Performed By: #### L [id number] #### New Client Banking Services Clerk: ANJALI MALLORY ([phone]) [facility] ([facility]) [address] [place] [address] GLOMERULAR FILTRATION RATE ML/MIN/1.73 SQ M.PREDICTED 56.6 mL/min/1.73m*2 Low >60.0 [facility] Comment on above: Result Comment: Calc ulation based on the Chronic Kidney Disease Epidemiology Collaboration (CKD-EPI) equation refit without adjustment for race Performed By: #### L [id number] #### New Client Banking Services Clerk: ANJALI MALLORY ([phone]) [facility] ([facility]) [address] [place] [address] Glucose [Mass/Vol] 96 mg/dL Normal 82-115 [facility] Comment on above: Performed By: #### L [id number] #### New Client Banking Services Clerk: ANJALI MALLORY ([phone]) [facility]) [address] [place] [address] Potassium [Moles/Vol] 4.8 mmol/L Normal 3.5-5.1 [facility] Comment on above: Result Comment: [facility] potassium values may be up to 0.5 mmol/L lower than serum values. Performed By: #### L [id number] #### New Client Banking Services Clerk: ANJALI MALLORY ([phone]) [facility] ([facility]) [address] [place] [address] Sodium [Moles/Vol] 137 mmol/L Normal 136-145 [facility] Comment on above: Performed By: #### L [id number] #### New Client Banking Services Clerk: ANJALI MALLORY ([phone]) [facility] ([facility]) [address] [place] [address] [place] Urea nitrogen [Mass/Vol] 29 mg/dL High 9-23 [facility] Comment on above: Performed By: #### L [id number] #### New Client Banking Services Clerk: ANJALI MALLORY ([phone]) [facility] ([facility]) [address] [place] [address] Basic metabolic 1998 panelon 06-25-2024 Anion gap [Moles/Vol] 9 mmol/L 3 - 13 mmol/L [facility] Calcium [Mass/Vol] 9.5 mg/dL 8.8 - 10. 0 mg/dL [facility] Chloride [Moles/Vol] 103 mmol/L 98 - 10 7 mmol/L [facility] CO2 [Moles/Vol] 25 mmol/L 23 - 31 mmol/L [facility] Creatinine [Mass/Vol] 1.32 mg/dL High 0.72 - 1.25 mg/dL [facility] GFR/1.73 sq M.predicted (S/P/Bld) [Vol rate/Area] 56.6 mL/min Low - PINF [facility] Comment on above: Calculation based on the Chronic Kidney Disease Epidemiology Collaboration (CKD-EPI) equation refit without adjustment for race Glucose [Mass/Vol] 96 mg/dL 82 - 115 mg/dL [facility] Interpretation and review of laboratory results Abnormal [facility] Potassium [Moles/Vol] 4.8 mmol/L 3.5 - 5.1 mmol/L [facility] Comment on above: Plasma potassium ganesh ues may be up to 0.5 mmol/L lower than serum values. Sodium [Moles/Vol] 137 mmol/L 136 - 145 mmol/L [facility] Urea nitrogen [Mass/Vol] 29 mg/dL High 9 - 23 mg/dL [facility] CBC (HEMOGRAM)on 06-25-2024 Erythrocyte distribution width (RBC) [Ratio] 13.3 % Normal 11.5-15.0 [facility] Comment on above: Performed By: #### L [id number] #### New Client Banking Services Clerk: ANJALI MALLORY ([phone]) [address] Hematocrit (Bld) [Volume fraction] 49.0 % Normal 40.0-52.0 [facility] Comment on above: Performed By: #### L [id number] #### New Client Banking Services Clerk: ANJALI [phone]) [facility]) [address] [place] [address] Hemoglobin (Bld) [Mass/Vol] 16.3 g/dL Normal 13.0-18.0 [facility] Comment on above: Performed By: #### L [id number] #### New Client Banking Services Clerk: ANJALI [phone]) [facility] ([facility]) [address] [place] [address] MCH (RBC) [Entitic mass] 32.0 pg Normal 26.0-34.0 [facility] Comment on above: Performed By: #### L [id number] #### New Client Banking Services Clerk: ANJALI MALLORY ([phone]) [facility] ([facility]) [address] [place] [address] MCHC 33.3 % Normal 30.5-36.0 [facility] Comment on above: Performed By: #### L [id number] #### New Client Banking Services Clerk: ANJALI MALLORY ([phone]) [facility] ([facility]) [address] [place] [address] MCV (RBC) [Entitic vol] 96.1 fL Normal 77.0-99.0 [facility] Comment on above: Performed By: #### L [id number] #### New Client Banking Services Clerk: ANJALI MALLORY ([phone]) [facility] ([facility]) [address] [place] [address] Platelet mean volume (Bld) [Entitic vol] 9.4 fL Normal 9.0-12.7 [facility] Comment on above: Performed By: #### L [id number] #### New Client Banking Services Clerk: ANJALI MALLORY ([phone]) [facility] ([facility]) [address] [place] [address] Platelets (Bld) [#/Vol] 152 10*3/uL Normal 140-440 [facility] Comment on above: Performed By: #### L [id number] #### New Client Banking Services Clerk: ANJALI MALLORY ([phone]) [facility] ([facility]) [address] [place] [address] RBC (Bld) [#/Vol] 5.10 10*6/uL Normal 4.40-5.90 [facility] Comment on above: Performed By: #### L [id number] #### New Client Banking Services Clerk: ANJALI MALLORY ([phone]) [facility] ([facility]) [address] [place] [address] WBC (Bld) [#/Vol] 6.6 10*3/uL Normal 3.6-10.7 [facility] Comment on above: Performed By: #### L [id number] #### New Client Banking Services Clerk: ANJALI MALLORY ([phone]) [facility] ([facility]) [address] [place] [address] CBC panel Auto (Bld)on 06-25 Erythrocyte distribution width (RBC) [Ratio] 13.3 % 11.5 - 15.0 % [facility] Hematocrit (Bld) [Volume fraction] 49 % 40.0 - 52.0 % [facility] Hemoglobin (Bld) [Mass/Vol] 16.3 g/dL 13.0 - 18.0 g/dL [facility] Interpretation and review of laboratory results Normal [facility] MCH (RBC) [Entitic mass] 32 pg 26.0 - 34.0 pg [facility] MCHC (RBC) [Mass/Vol] 33.3 % 30.5 - 36.0 % [facility] MCV (RBC) [Entitic vol] 96.1 fL 77.0 - 99.0 fL [facility] Platelet mean volume (Bld) [Entitic vol] 9.4 fL 9.0 - 12.7 fL [facility] Platelets (Bld) [#/Vol] 152 10*3/uL 140 - 440 10*3/uL [facility] RBC (Bld) [#/Vol] 5.1 10*6/uL 4.40 - 5.9 0 10*6/uL [facility] WBC (Bld) [#/Vol] 6.6 10*3/uL 3.6 - 10.7 10*3/uL [facility] No Panel InformationOrdered By: Ashlyn Padilla on 06-25-2024 Case Report Surgical Pathology Case: [id number] Authorizing Provider: Antione Cardenas DO Collected: 06/21/2024 0833 Ordering Location: [facility] MAIN OR Received: 06/21/2024 1212 Pathologist: Ashlyn Padilla MD Specimens: A) - Abdominal Wall, INTESTINAL MASS B) - Abdominal Wall, DEBRIDED CONTENTS [facility] Work Phone: Clinical Information r2brxLVaYGYpuWWuGAy wNlx emtDxJFTvnLVhP2TnkqhnSK usBS2oQK3jsAmbeETqsOMdJ FNzBpUkn1kjf129yQCvn7uh CYJYESyvJPJXMWy5sEkiU40 tv7V1HhzjR3spSEWwVYwyQG EfMPctpCOrLTz9HKDosVEpo jAiQjUmAQDofLVanMR7USKm XT2qntywWOedRShvXXRdphM 0ALOsiHAoL5OyYLCuUM8saw obZKN0WPhoWTBiEFP1SbQmZ RXpu2Wkuhi3CeNuoFGpTKre bGFpblxmczIwXGNmMSBJbmN wt2nbknObTSzeck9bMRR3oG Jda5N0KU8cn7HwsPJ5aU1jI G5qPJkjittcIP1bDCMwXVBx XHBhcn0= [facility] [employer] Work Phone: Disclaimer h7mhgVHjEAJhyQEgAhBf MDA xVUQho7kqRSHhzWJoCgVeZs NcZnRuYmpcdWMxXGRlZmYwe 5cjd691aLIwu3obCIKeZuD1 qECqJLFwF24xSVODO861ROI hPXtet1xdp6DgYTWbvYBim3 Z2UVNWUHlhJXBPRZu2hXkaH 53ws2V9SbwwB2ttOYLuWYNy Q7XnOM8hXRVzZdp4FGM7WKW 2YKTiVBToE0SjXI5kAJLmjL EeRHs7a2umvPlzSAByIVS4u 6tgSAdzagDnXH9ekx5qsMn5 v6vovqIaZGVxGPPkxKYEQHM qV1GdsWzlFs6nyIk2jIsoOx gnYWR8Ujn7WH3wba48qcf3h LsbLKWhpaoyZkJ1SUkxSLXc itqyTJu5ZJliBLQfkJE6HXQ uzJFzF7UzITXgNR5jkod7TG M8UNvjPMLlPtJ7LLWfgERwB CAkmShjOSfre415KMR7OsGg ZV5mW1Gmf2T8jS8yxDEuOJK bcSLkSgBuGWMwyv7zpALgMG yrm7QqYCQ9hnQ0iCRqyBVtZ HWlEQ14Qvctb8NfGwbhOEK7 WHJxwsYic3End2nzPiGqjwG mX5jyT4SrXBZsIMDzOIVbIh SkeaLfz4Lzu4RdxEHuxRl8y 9liGLAxFGStwFvdi6lgFSD5 YSWiQ7F8aSKpt3rvSLdpCVC acCH9edL1VYKpjTYxL5AqsN 5dCTXgXF0fahw6l3iyNHP7E TyxHXRcSxA3guA8UOBnmRRo RIFriDmcVNpsq148HQL6QqQ yWPCqp1JkD2IuuEqhP05mlL jeA80vFIAkyKgnwM1rqOxro B0tRtScUzYsEPrqgOxciZNw cxgoKTwdshQ8TIruqgqcIDC dWKezC1ohScCqJNTkdTjxBU fed6AzHMNxETVsRCTdAQekA 9qphN8ddkmzXAzwXMVdcRhm p8ydGiDeaNN4TN1xueRtAJE nnScleyQ5ifJsoAuwcH4ldY 2srPgdwK6hfHZdfRM8paoeB GluIHNpdHUgaHlicmlkaXph aWsqxxbmpQ4qKSW5sKZeIDN 5mMGtXMUsJVJoNTFghG38zh 3mqYIfqzUqZ4UgE4NdgSFjp FciSqiguEUaiXIhCw5xfEFe GS6nHVBizHKfR3DuBJ2wSTF hclxwYXIgVGhlIHVzZSBvZi RxcgAmn4OleK7oBBTpBDElW K89kmWqnsI9tHIbXYKltpTy dGVzdHMgaXMgcmVndWxhdGV vEYIdHNFrBNTtPVo8pOUvq9 HyL5xntNMhjoQcS8NuzUVsK KIZSR1tIQzel9JsxFCzuDPp u6IwQQCiGOJvgG0sFLEtZJ9 bGCLjOZimZBCmhfZrve5oat ZuXDOpGUCqP8IqwqdttIpjg cKzHYPwkk9glnWdOOS5DRXg ZSBjbGluaWNhbCBsYWJvcmF 2k9CgJDNfy3KlI9XusJBsPK NvvOOhBAF4f0SlwC5pDOodn MYlKYGzKF6cgTZvJISoPPQi ZWFyZWQgYnkgdGhlIFVTIEZ bx3NoZN4dZEQpfIfhCTHwsV 5zj6KcOQZyh55cEXPHBTmjF FRoZSBGREEgaGFzIGRldGVy bWluZWQgdGhhdCBzdWNoIGN bBXNrTV7gZCMbmbZqkRSif1 RrqHKrhtOts2LsmdNkZLEvF JY3MwYylDNhXCOaeaQQvAak uK1myJ0ld2IiyV7mLOakzyL adBBrAn3tqJPaWG2uRVCani FmZmluIGVtYmVkZGVkIHRpc 3O3IH6hLKKbxa4dqmfloFLk nH1ngGHgnqCrSH6fQZ9qT4M 2cCPrBLWvkrFnp5xdJBk9lK WxEHDriFOgaTBrOnxuPGK5E PKiVRH4guCkdgHbYEJvwOxk iXS4iHBiALZvPYNdOALrBK3 1B4Pjv3HsL7hpGH64BHPkUZ DoKLGbvdWxb8uyBIBqg1wiX UWhxQBsD2VyLOXwuEMaessv ZnMlRIV3RGNgSYE2pUXqCIW sR3DlhWSngSYsfS82TI7kkP Z1EW5dCMS9GKdclD6lXcXJc H30yw4mkMB4p0EtQZ8nH6Ne NZKgg0V8kkRxWSDkIN9jjZX iZWVuIHZhbGlkYXRlZCBvbi UaWNBetYFhSoevATX4pTUhh VUgBpYVUTH0iPTlAYLiy7Fu ZCBiZSBpbnRlcnByZXRlZCB 7yROrEAWvsSRyo25pE3d9IP 5buLlpHCLnyCLhMHZjw7Nla XZznId0zOSlEiUtTBjtKQIr VWxpcDz3jSP0PA8cICIwS5B lU5bwlCUqPIXbSYNlcKByii 5ccGFyfQ== [facility] Work Phone: Gross Description r8vbxBJdBMSwtVOqJLsv Nlx ebmOiGORcrWDbE1YzbwazTJ dcBG4tKB8ycGwvqSXxhDKrP RLuFuYya6asm814aTEoa6mm FRYSLWsxYHECLZy9kQeaQ79 lz7N8UbbhJ36jpFMrLJV1GD FjYZNzcADjKFUpMYW1ITDjc VLqA3zmBIFgBG4dijtuPAtt BJeyGKHjrPB5BBFqhOHhK9D jYIWjGNofMHQapdy0BmJaNh 9vdGVyeTcyMFxwYXJkXHBsY RrbPAYiGkBsIJ3drUJmIMKd Y2CjnyLlNPtyGTLaqz8dxQh uIGxhYmVsZWQgImludGVzdG drKWhydLXmpoRfdTHeRDD5O K9bkPkjbrWquqUkyyWzUMJo mdCwb21yq0Myo21uvOM2lIY zdWUgdGhhdCBtZWFzdXJlcy BgUhmrR27yNCPAxHRxi3XeX 8xqFK2zyRGxJI59cRQjhEmd h6EsxUp4iFUtHMujMSMln8h iI0uwXSNmr9JdfBKpOhBuSJ VeoohyWOMiPb6flWUlCNInW 5BmgeAuOGyxRBDlst5fuIms IGxhYmVsZWQgImRlYnJpZGV kIGNvbnRlbnRzIiBhcmUgbX NcxNvvyAKadEjear6ySBXhR G9aFSxurCnshiKxw0J9sE6g yvWuTnBzBBjyg0BjEAPkd7J 4XQJ0hUZ5VJEgQ1RcD7V7IY O9jfZqHAT3UQycsRO6WMPpP iAgVGhlcmUgaXMgYSBmcmFn fTDuhYPqDzOvx8kmDXJnHJJ ztZClc5UvLQNtTSDgL89kzM 5hgVNhR2PaIPX1JFRpJVUxa SBpbiBkaWFtZXRlciBhbmQg aXMgbGlnaHRseSBwaWdtZW5 1VWQjAR3pFJKdqyGtRLXqID JvRT8oSQHjjGOky0EdmOQ2a AIiJYHnP2Ypu71dPP4zDLJa RCHurZVmwC9vwyLoolOfh5O vfYa9uJElZKixOE9yNCPfGP EaXBP7RN9pmGJeyS== [email or web address] Work Phone: Pathologist Interpretation Location [facility], [address] [place] [address], Formerly [facility] [address], CLIA: [id number]; Joint Commission: HCO [id number]; CAP: [id number] [employer] Phone: Pathology report final diagnosis Narrative n3koeEDcFFEsrTKbBQlgKeg cceMhYOMjpTMnA4HqrasyAU muMY1lUQ6vpKslkCUqmGIxD SJpUtGan2ebo188mKHun9ta GVOCIAufCAMBZVx2sFnrL10 zi1H7ZzlgY78naFJpLYP3OC BiXCFmeUXgDVWgCCJ4ATQgd SZrP4yvPNUcNB3scvtjVRnd NQwpOQDdsUI5XASemZZgU0V eKHBtAOrdFVEqdit8AxOhAb 9vdGVyeTcyMFxwYXJkXHBsY PirENSrMcZlRW9hATPBUdZt JEtRV2LLONMdBU3JFXWBBP4 BTCBNQVNTLCIgQklPUFNZIC 4mYnrPKn1ODwRVYKBJNRIlS 0iTARWVK7fAXUTWJJ5EBV0M WUJUI24ONcEMDEAEPyQcJa2 JTRsrJMVXOz3PNWYOPWBhJU 4CNDGCBsQoZ4aNMaZmE6UNG UGlCYJTXmXUH2OMFaNdV2hF EYBCSKZPHCkUQXNLHa1FDXT HMubnXGBdsICxCGVcuC9amr Q2ZPKYyBKatAivpKQotQHlT I8oaOJgsTWfAKYnPOKorzYn sVIvK09pl4tomWJxfWK6xOB pCZzgfV1tpUFjcqbzQUFzbw BnpclbPQ7mLJLlFpilcI9iw JKrkuIeg7GgfJ2pcexsq9v8 jYFbniXbva0qFJF3IWdpVpI wJDBMDUV0JtFmbMRirkGkrW dobGlnaHRzIHRoZSBpbnZvb ZLiLYCxLRDgi9YdLDliltY9 mTqvFYOaDFFleugxbgS6fY9 ln3QtsI8mgKSkhY4iqQUygy YlwI0dh8VhWnDwUOHgnL7sh xdgaVGwv4JbUXztZTdhD7Fp oWDiOYRXlyFyntimSX2jGWD eXiHfikKpktRpp5f1ZVJbhW h4pDVwzJQpUOOvo4Sgu1Lgr XMgaWRlbnRpZmllZCBpbiB0 tDJpZAQzXG3ztRxsS3QdQLA tjknuKBBmMp6yZERCSxRoXP qPT3KBXHJXAERBMCQRHTLIN ULiIFWQFC0gMV6AXYELKnZT QFEXFS9NHzKLUHCWYCFqE2a SMBRDBRQSF3JCUSEXT8eSA5 ZNIwQmD3PuZQNBBrjXHBXBT yBPUiBDWVNULlxwYXJ9 [facility] [employer] Work Phone: [facility] [employer] Work Phone: Progress Noteon 06-25-2024 Progress Note PHYSICAL THERAPY [facility] Treatment Note Name/MRN: Jacky Ellis ([id number]) Date of : 1950 Age: 73 y.o. [facility] Discharge Recommendation: IP Rehab Equipment Needed: (tbd) Prior Level of Function Prior Level of ADL Function: Independent Prior Level of Mobility: Independent; Device: Front wheeled walker, Rollator, and Straight Cane Prior Level of Transfers: Independent Assessment Patient progressing towards goals well, good motivation and effort throughout. Able to perform transfers with CGA and ambulates increased distance with FWW and CGA. Continues to demo general instability however good safety awareness overall. Most limited by weakness, decreased endurance, and fatigue. Currently recommending IP rehab at discharge. Patient is from home alone and must be independent prior to returning. Subjective Seated in recliner upon arrival, pleasant and agreeable to PT. Pain: 7/10 abdominal and back pain Medical Precautions: No active isolations Proper PPE donned/doffed in accordance with facility standards. Fall Risk: Dior Fall Risk Score: 70 (High Risk) Precautions/Restriction s: Lines/Drains/Airways: wound vac, bulb drain Overall Cognitive Status: WNL Overall Orientation Status: Oriented to Person Family/Caregiver Present: none Objective Transfers/Mobility Sit to stand: Contact Guard Stand to sit: Contact Guard Good UE placement and technique, no LOB Device(s) used: Front wheeled walker Ambulation Ambulation 1 Assistive device(s) used: Front wheeled walker Assist level: Contact Guard Distance (ft): 90ft x 2 Quality of gait: reciprocal stepping, narrow LAYLA, slow kavon, postural sway. Cues for proximity to device intermittently, requires standing rest breaks due to fatigue. Overall good safety awareness demonstrated. Balance During Session: Posture: fair Sitting - Static: Supervision Sitting - Dynamic: Supervision Standing - Static: Contact Guard Standing - Dynamic: Min Assist Exercises Exercises Hip Flexion: x15 reps B LE seated Knee Long Arc Quad: x15 reps B LE seated Ankle Pumps: x15 reps B LE seated Comments: Standing marches, mini squats, and heel raises x10 reps B LE at FWW Heart Failure on Admission Dyspnea: Yes Heart failure diagnosis: No Plan Continue acute PT per plan of care. Safety/Education Safety Safety Devices in place: All fall risk precautions in place, call light within reach, left in chair, and gait belt Restraints: No Education Gait, transfers, exercises, balance Outcome Measures AM-PAC AM-PAC Inpatient Mobility Raw Score (No Stairs) : 14 JH-HLM -M Score: Walked 25 ft or more (i.e. walked outside of room) Goals Patient Stated Goal: to get better and go home Encounter Problems Encounter Problems (Active) Mobility Patient will ambulate 50 feet with modified independence and least restrictive device in order to improve safety and independence with mobility. (Progressing) Start: 06/23/24 Expected End: 07/07/24 Pain - Adult Transfers Patient will perform bed mobility with modified independence in order to improve independence and prepare for out of bed mobility. (Not Addressed) Start: 06/23/24 Expected End: 07/07/24 Patient will complete functional transfer with least restrictive device with modified independence in order to prepare for ambulation. (Progressing) Start: 06/23/24 Expected End: 07/07/24 Therapy Time Individual Co-treatment Time In 1006 Time Out 1033 Minutes 27 Timed Code Treatment Minutes: 24 Minutes (ZAK Crandall) Variance: 3 Lillie Barnes PTA [facility] 30on 06-24-2024 30 Problem: Pain - Adul t Goal: Verbalizes/displays adequate comfort level or baseline comfort level 06/24/20242111 by Gris Decker RN Outcome: Progressing 06/24/20242111 by Gris Decker RN Outcome: Progressing Problem: Safety - Adult Goal: Free from fall injury 06/24/20242111 by Gris Decker RN Outcome: Progressing 06/24/20242111 by Gris Decker RN Outcome: Progressing Normal [facility] 30 Documented earlier. Normal [facility] 30 Medicated per order has better pain control at this time. Had small BM. Walking in room with steady gait safety maintained. Normal [facility] BASIC METABOLIC PANELon 06-10 Anion gap [Moles/Vol] 9 mmol/L Normal - [facility] Comment on above: Performed By: #### L [id number] #### New Client Banking Services Clerk: ANJALI MALLORY ([phone]) [facility] ([facility]) [address] [place] [address] Calcium [Mass/Vol] 8.7 mg/dL Low 8.8-10.0 [facility] Comment on above: Performed By: #### L [id number] #### New Client Banking Services Clerk: ANJALI MALLORY ([phone]) [facility] ([facility]) [address] [place] [address] Chloride [Moles/Vol] 106 mmol/L Normal 98-107 [facility] Comment on above: Performed By: #### L [id number] #### New Client Banking Services Clerk: ANJALI MALLORY ([phone]) [facility] ([facility]) [address] [place] [address] [place] CO2 [Moles/Vol] 22 mmol/L Low 23-31 [facility] Comment on above: Performed By: #### L [id number] #### New Client Banking Services Clerk: ANJALI MALLORY ([phone]) [facility] ([facility]) [address] [place] [address] Creatinine [Mass/Vol] 1.42 mg/dL High 0.72-1.25 [facility] Comment on above: Performed By: #### L [id number] #### New Client Banking Services Clerk: ANJALI MALLORY ([phone]) [facility] ([facility]) [address] [place] [address] [place] GLOMERULAR FILTRATION RATE ML/MIN/1.73 SQ M.PREDICTED 51.9 mL/min/1.73m*2 Low >60.0 [facility] Comment on above: Result Comment: Calc ulation based on the Chronic Kidney Disease Epidemiology Collaboration (CKD-EPI) equation refit without adjustment for race Performed By: #### L [id number] #### New Client Banking Services Clerk: ANJALI MALLORY ([phone]) [facility] ([facility]) [address] [place] [address] Glucose [Mass/Vol] 92 mg/dL Normal 82-115 [facility] Comment on above: Performed By: #### L [id number] #### New Client Banking Services Clerk: ANJALI MALLORY ([phone]) [facility]) [address] [place] [address] Potassium [Moles/Vol] 4.8 mmol/L Normal 3.5-5.1 [facility] Comment on above: Result Comment: [facility] potassium values may be up to 0.5 mmol/L lower than serum values. Performed By: #### L [id number] #### New Client Banking Services Clerk: ANJALI MALLORY ([phone]) [facility] ([facility]) [address] [place] [address] Sodium [Moles/Vol] 137 mmol/L Normal 136-145 [facility] Comment on above: Performed By: #### L [id number] #### New Client Banking Services Clerk: ANJALI MALLORY ([phone]) [facility]) [address] [place] [address] [place] Urea nitrogen [Mass/Vol] 37 mg/dL High 9-23 [facility] Comment on above: Performed By: #### L [id number] #### New Client Banking Services Clerk: ANJALI MALLORY ([phone]) [facility]) [address] [place] [address] Basic metabolic 1998 panelon 06-24-2024 Anion gap [Moles/Vol] 9 mmol/L 3 - 13 mmol/L [facility] Calcium [Mass/Vol] 8.7 mg/dL Low 8.8 - 10. 0 mg/dL [facility] Chloride [Moles/Vol] 106 mmol/L 98 - 10 7 mmol/L [facility] CO2 [Moles/Vol] 22 mmol/L Low 23 - 31 mmol/L [facility] Creatinine [Mass/Vol] 1.42 mg/dL High 0.72 - 1.25 mg/dL [facility] GFR/1.73 sq M.predicted (S/P/Bld) [Vol rate/Area] 51.9 mL/min Low - PINF [facility] Comment on above: Calculation based on the Chronic Kidney Disease Epidemiology Collaboration (CKD-EPI) equation refit without adjustment for race Glucose [Mass/Vol] 92 mg/dL 82 - 115 mg/dL [facility] Interpretation and review of laboratory results Abnormal [facility] Potassium [Moles/Vol] 4.8 mmol/L 3.5 - 5.1 mmol/L [facility] Comment on above: Plasma potassium ganesh ues may be up to 0.5 mmol/L lower than serum values. Sodium [Moles/Vol] 137 mmol/L 136 - 145 mmol/L [facility] Urea nitrogen [Mass/Vol] 37 mg/dL High 9 - 23 mg/dL [facility] CBC (HEMOGRAM)on 06-24-2024 Erythrocyte distribution width (RBC) [Ratio] 13.7 % Normal 11.5-15.0 [facility] Comment on above: Performed By: #### L [id number] #### New Client Banking Services Clerk: ANJALI [phone]) [facility]) [address] [place] [address] Hematocrit (Bld) [Volume fraction] 46.3 % Normal 40.0-52.0 [facility] Comment on above: Performed By: #### L [id number] #### New Client Banking Services Clerk: ANJALI MALLORY ([phone]) [facility] ([facility]) [address] [place] [address] Hemoglobin (Bld) [Mass/Vol] 15.4 g/dL Normal 13.0-18.0 [facility] Comment on above: Performed By: #### L [id number] #### New Client Banking Services Clerk: ANJALI MALLORY ([phone]) [facility] ([facility]) [address] [place] [address] [place] IPF 1 Normal [facility] Comment on above: Performed By: #### L [id number] #### New Client Banking Services Clerk: ANJALI MALLORY ([phone]) [facility]) [address] [place] [address] MCH (RBC) [Entitic mass] 31.8 pg Normal 26.0-34.0 [facility] Comment on above: Performed By: #### L [id number] #### New Client Banking Services Clerk: ANJALI MALLORY ([phone]) [facility]) [address] [place] [address] MCHC 33.3 % Normal 30.5-36.0 [facility] Comment on above: Performed By: #### L [id number] #### New Client Banking Services Clerk: ANJALI MALLORY ([phone]) [facility]) [address] [place] [address] MCV (RBC) [Entitic vol] 95.7 fL Normal 77.0-99.0 [facility] Comment on above: Performed By: #### L [id number] #### New Client Banking Services Clerk: ANJALI MALLORY ([phone]) [facility] ([facility]) [address] [place] [address] Platelet mean volume (Bld) [Entitic vol] 9.4 fL Normal 9.0-12.7 [facility] [facility] Comment on above: Performed By: #### L [id number] #### New Client Banking Services Clerk: ANJALI MALLORY ([id number]) [facility]) [address] [place] [address] Platelets (Bld) [#/Vol] 118 10*3/uL Low 140-440 [facility] Comment on above: Performed By: #### L [id number] #### New Client Banking Services Clerk: ANJALI MALLORY ([phone]) [facility]) [address] [place] [address] RBC (Bld) [#/Vol] 4.84 10*6/uL Normal 4.40-5.90 [facility] Comment on above: Performed By: #### L [id number] #### New Client Banking Services Clerk: ANJALI MALLORY ([id number]) [facility] ([facility]) [address] [place] [address] WBC (Bld) [#/Vol] 6.3 10*3/uL Normal 3.6-10.7 [facility] Comment on above: Performed By: #### L [id number] #### New Client Banking Services Clerk: ANJALI MALLORY ([id number]) [facility] ([facility]) [address] [place] [address] CBC panel Auto (Bld)on 06-24 Erythrocyte distribution width (RBC) [Ratio] 13.7 % 11.5 - 15.0 % [facility] Hematocrit (Bld) [Volume fraction] 46.3 % 40.0 - 52.0 % [facility] Hemoglobin (Bld) [Mass/Vol] 15.4 g/dL 13.0 - 18.0 g/dL [facility] Interpretation and review of laboratory results Abnormal [facility] IPF 1 [facility] MCH (RBC) [Entitic mass] 31.8 pg 26.0 - 34.0 pg [facility] MCHC (RBC) [Mass/Vol] 33.3 % 30.5 - 36.0 % [facility] MCV (RBC) [Entitic vol] 95.7 fL 77.0 - 99.0 fL [facility] Platelet mean volume (Bld) [Entitic vol] 9.4 fL 9.0 - 12.7 fL [facility] Platelets (Bld) [#/Vol] 118 10*3/uL Low 140 - 440 10*3/uL [facility] RBC (Bld) [#/Vol] 4.84 10*6/uL 4.40 - 5.9 0 10*6/uL [facility] WBC (Bld) [#/Vol] 6.3 10*3/uL 3.6 - 10.7 10*3/uL [facility] Progress Noteon 06-24-2024 Progress Note PAGING: The Acute Pa in Service providers are available exclusively via [email or web address] SECURE CHAT. APS does not utilize pagers. 06/24/2024 Discharge Recommendations: Oxycodone 5-10mg PO q6h prn for mod / severe pain. Please note pt may require higher pain meds in acute post op period 2/2 baseline opioid tolerance Tylenol 1g PO 3x daily prn for mild pain Stool softeners Pain Management Adjuvants: 0700 --> 0700 06/23/24 Scheduled APAP 3g Gabapentin Lidocaine patches PRN Hydromorphone IV Methocarbamol Oxycodone 20mg Assessment / Pain Management Plan: Recommendations made, will sign off at this time. Thank you for inviting us to participate in the care of this patient. Acute Postsurgical Abdominal pain Multimodal pain regimen: BLOCK: TAP 06/21/24 Continue Acetaminophen 1,000 mg po q8h scheduled ATC. Cont Hydromorphone 0.25 mg - 0.5 mg IVP qh4 prn moderate to severe breakthrough pain. Please utilize oral medications first. Continue Oxycodone 5 - 10 mg po q4h prn moderate to severe breakthrough pain. Continue tizanidine 4 mg Q 6 hours PRN for muscle spasms, per patient request Pt requesting information regarding newly approved non opioid Journavx for treatment of acute pain. Medication currently not available to order inpatient. Continue Naloxone 0.4 mg IVP prn opioid reversal. PRN if respiratory rate is less than 6/min and patient is difficult to arouse then notify physician STAT. Mix 9 mL of sodium chloride 0.9% with 0.4 mg (1 mL) of naloxone (NARCAN) in 10 mL syringe. (Note: dilution is 0.04 mg/mL) Give 0.08 mg (2 mL of special dilution), slow IV push, repeat up to 0.4 mg (10 mL) or until patient is responsive to physical stimulation and respiratory rate is equal to or greater than 6 breaths/min. Continue to observe, if no response within 3 minutes of administration of 0.4 mg (10 mL) total, repeat dose (0.4 mg as administered previously). Incisional hernia without obstruction or gangrene Pt is s/p open incisional hernia repair with mesh 06/21/24 See #1 The patient's medical history and physical assessment, medications, allergies, patient's current medical condition, imaging, and labs were reviewed as part of this consultation. Patient's Medications have been reviewed. PMH reviewed below Opioid Use, Acute on Chronic Reviewed and educated patient on responsible use of opioids: after surgery, it can be normal to experience pain. If it is mild and you can move about without great difficulty or discomfort, you may not need to take pain medication. It is very important to take your pain medication only as needed. Avoiding excessive or unnecessary medication, will enable you to progress your activity each day to improve your muscle tone and movement, deep breathing, digestion, circulation and your body's ability to heal itself. OARRS reviewed for past two years. (Recurrent opiates RX filled) Pain Management: Starla Opioid Tolerant, Opioid Dependent Managed on [place] 10/325mg PO TID and has a spine pain device Constipation At risk for opioid induced constipation Patient currently receiving opioids for pain management necessitating a bowel regimen. Recommend initiating scheduled Sennakot-S 8.6/50mg, 1 tablet PO BID. Would also recommend Milk of Magnesia 400mg/5ml, administer 30mL by mouth daily PRN. Plan discussed with patient who appears to understand and agrees. Chief Complaint: hernia surgery HPI: We have been asked to see this 73 y.o. male for postoperative pain management s/p open incisional hernia repair with mesh 06/21/24 Reviewed EKG 06/21/24 JHOANA, no pages. On arrival, pt sitting in bedside chair. There is no bed in his room. States it is uncomfortable. Sleeping in chair. Abdominal pain is controlled. On CLD, - bm, +passing gas Denies f/c, cp, sob, n/v/d Pain Location: Abdomen Aggravating Factors: Moving Sedation score: 1: Awake and alert Pain Severity: mild Pain Quality: sharp Alleviating Factors: Rest/Pain medications REVIEW OF SYSTEMS: Pertinent positives as noted in the HPI. All other systems reviewed and negative. PHYSICAL EXAM: Vitals: BP 147/92 (BP Location: Right arm, Patient Position: Sitting) Pulse 82 Temp 36.9 ?C (98.4 ?F) (Temporal) Resp 18 SpO2 96% BMI Classification: not documented General appearance: No apparent distress, appears stated age and cooperative. HEENT: Normal cephalic, atraumatic without obvious deformity. Pupils equal, round, and reactive to light. Extra ocular muscles intact. Conjunctivae/corneas clear. Neck: No jugular venous distention. Trachea midline. Cardiovascular: Peripheral pulses 2+ and equal in all extremities Respiratory: Unlabored respiratory effort. On room air Musculoskeletal: No clubbing, cyanosis or edema bilaterally. Full ROM of all extremities. Skin: Skin color, texture, turgor normal. Surgical incision not able to assess, pt in abdominal binder Neuro (more content not included)... Normal [facility] 30on 06-23-2024 30 Problem: Pain - Adul t Goal: Verbalizes/displays adequate comfort level or baseline comfort level 06/23/2024 1137 by Christina Pedroza RN Outcome: Progressing 06/23/2024 1042 by Christina Pedroza RN Outcome: Progressing Problem: Safety - Adult Goal: Free from fall injury 06/23/2024 1137 by Christina Pedroza RN Outcome: Progressing 06/23/2024 1042 by Christina Pedroza RN Outcome: Progressing Normal [facility] [id number] 06-23-2024 [id number] Care Managment Initi al Assessment Date: 06/23/2024 Patient Name: Jacky Ellis : 1950 Patient Information Source of Information: Patient Cognition/Language: WFL - Within Functional Limits Permission given to speak with patient lifeline representatives/caregive r as indicated: Yes Confirmation of Payer with patient/family: Yes Payer Name: [place] Medicare Advantage [place]: No Confirmation of Primary Care Physician: Confirmed PCP Name: Hoda Grayson Seen in last 2 years?: Yes Primary Caregiver: Self If assistance needed, confirmed caregiver ready, willing and able to care for patient at discharge: Confirmed with: per patient his neighbor Living Arrangements Current Residence: House Number of Floors 1 Number of Entry Steps: (ramp) Bed/Bath Levels: Facility: Facility Name: Plan to Return: Lives with: Alone Support Systems: Children, Friends/neighbors Activities of Daily Living Ambulation: Independent Bathing/Dressing: Independent Elimination/Continence/ Toileting: Independent Feeding: Independent Who Assists with Activities of Daily Living: Instrumental Activities of Daily Living Prescription Coverage: Yes Pharmacy Used: [facility] Medication Management: Independent Transportation/Shopping : Independent Transportation Mode: Car Needs Assistance with Transportation at Discharge: No Meal Preparation: Independent Laundry/Cleaning: Independent Finances/Bill Paying: Independent Communication: Independent Types of Care Services/Equipment Utilized Care Services: Dialysis Type: Durable Medical Equipment: (walk in shower with railings) Patient's Goal/Discharge Plan Patient expects to be discharged to: home Discharge Planning Actions: Continue to follow Patient's Choice Rights and [employer] and Collaborative Relationships Disclosed as Indicated for Post-Acute Care: Interdisciplinary Team Engagement: Social Work Referral for: Additional Information: Patient admitted to s/p open incisional hernia repair with mesh 06/21/2024. Met with pt at bedside, introduced self and explained role of TCC. Pt has insurance with RX coverage, active with PCP. Patient lives alone. Patient has friends and neighbors to assist. Patient denies any home going needs. Per patient he needs to have a bm and then his diet will be advanced. TCC to assist and follow as needed. Kelsie Yoder RN Normal [facility] BASIC METABOLIC PANELon 06-10 Anion gap [Moles/Vol] 8 mmol/L Normal 3-13 [facility] Comment on above: Performed By: #### L [id number] #### New Client Banking Services Clerk: ANJALI MALLORY ([phone]) [facility]) [address] [place] [address] Calcium [Mass/Vol] 9.0 mg/dL Normal 8.8-10.0 [facility] Comment on above: Performed By: #### L [id number] #### New Client Banking Services Clerk: ANJALI MALLORY ([id number]) [facility] ([facility]) [address] [place] [address] [place] Chloride [Moles/Vol] 105 mmol/L Normal 98-107 [facility] Comment on above: Performed By: #### L [id number] #### New Client Banking Services Clerk: ANJALI MALLORY ([id number]) [facility] ([facility]) [address] [place] [address] [place] CO2 [Moles/Vol] 23 mmol/L Normal 23-31 [facility] Comment on above: Performed By: #### L [id number] #### New Client Banking Services Clerk: ANJALI MALLORY ([id number]) [facility] ([facility]) [address] [place] [address] [place] Creatinine [Mass/Vol] 1.30 mg/dL High 0.72-1.25 [facility] Comment on above: Performed By: #### L [id number] #### New Client Banking Services Clerk: ANJALI MALLORY ([phone]) [facility]) [address] [place] [address] GLOMERULAR FILTRATION RATE ML/MIN/1.73 SQ M.PREDICTED 57.6 mL/min/1.73m*2 Low >60.0 [facility] Comment on above: Result Comment: Calc ulation based on the Chronic Kidney Disease Epidemiology Collaboration (CKD-EPI) equation refit without adjustment for race Performed By: #### L [id number] #### New Client Banking Services Clerk: ANJALI MALLORY ([phone]) [facility]) [address] [place] [address] Glucose [Mass/Vol] 132 mg/dL High 82-115 [facility] Comment on above: Performed By: #### L [id number] #### New Client Banking Services Clerk: ANJALI MALLORY ([id number]) [address] Potassium [Moles/Vol] 4.3 mmol/L Normal 3.5-5.1 [facility] Comment on above: Result Comment: [facility] potassium values may be up to 0.5 mmol/L lower than serum values. Performed By: #### L [id number] #### New Client Banking Services Clerk: ANJALI MALLORY ([phone]) [address] Sodium [Moles/Vol] 136 mmol/L Normal 136-145 [facility] Comment on above: Performed By: #### L [id number] #### New Client Banking Services Clerk: ANJALI MALLORY ([phone]) [facility]) [address] [place] [address] Urea nitrogen [Mass/Vol] 31 mg/dL High 9-23 [facility] Comment on above: Performed By: #### L [id number] #### New Client Banking Services Clerk: ANJALI MALLORY ([phone]) [facility]) [address] [place] [address] Basic metabolic 1998 panelon 03-14-2025 Anion gap [Moles/Vol] 8 mmol/L 3 - 13 mmol/L [facility] Calcium [Mass/Vol] 9 mg/dL 8.8 - 10. 0 mg/dL [facility] Chloride [Moles/Vol] 105 mmol/L 98 - 10 7 mmol/L [facility] CO2 [Moles/Vol] 23 mmol/L 23 - 31 mmol/L [facility] Creatinine [Mass/Vol] 1.3 mg/dL High 0.72 - 1.25 mg/dL [facility] GFR/1.73 sq M.predicted (S/P/Bld) [Vol rate/Area] 57.6 mL/min Low - PINF [facility] Comment on above: Calculation based on the Chronic Kidney Disease Epidemiology Collaboration (CKD-EPI) equation refit without adjustment for race Glucose [Mass/Vol] 132 mg/dL High 82 - 115 mg/dL [facility] Interpretation and review of laboratory results Abnormal [facility] Potassium [Moles/Vol] 4.3 mmol/L 3.5 - 5.1 mmol/L [facility] Comment on above: Plasma potassium ganesh ues may be up to 0.5 mmol/L lower than serum values. Sodium [Moles/Vol] 136 mmol/L 136 - 145 mmol/L [facility] Urea nitrogen [Mass/Vol] 31 mg/dL High 9 - 23 mg/dL [facility] CBC (HEMOGRAM)on 06-23-2024 Erythrocyte distribution width (RBC) [Ratio] 13.6 % Normal 11.5-15.0 [facility] Comment on above: Performed By: #### L [id number] ####New Client Banking Services Clerk: ANJALI MALLORY ([phone])[address] Hematocrit (Bld) [Volume fraction] 45.2 % Normal 40.0-52.0 [facility] Comment on above: Performed By: #### L [id number] ####New Client Banking Services Clerk: ANJALI MALLORY ([phone])[facility])[address] [place] [address] Hemoglobin (Bld) [Mass/Vol] 15.3 g/dL Normal 13.0-18.0 [facility] Comment on above: Performed By: #### L [id number] ####New Client Banking Services Clerk: ANJALI MALLORY ([phone])[facility])[address] [place] [address] [place] IPF 1 Normal [facility] Comment on above: Performed By: #### L [id number] ####New Client Banking Services Clerk: ANJALI MALLORY ([phone])[facility] ([facility])[address] [place] [address] MCH (RBC) [Entitic mass] 31.5 pg Normal 26.0-34.0 [facility] Comment on above: Performed By: #### L [id number] ####New Client Banking Services Clerk: ANJALI MALLORY ([phone])[facility])[address] [place] [address] MCHC 33.8 % Normal 30.5-36.0 [facility] Comment on above: Performed By: #### L [id number] ####New Client Banking Services Clerk: ANJALI MALLORY ([phone])[facility] ([facility])[address] [place] [address] MCV (RBC) [Entitic vol] 93.2 fL Normal 77.0-99.0 [facility] Comment on above: Performed By: #### L [id number] ####New Client Banking Services Clerk: ANJALI MALLORY ([phone])[facility])[address] [place] [address] Platelet mean volume (Bld) [Entitic vol] 9.3 fL Normal 9.0-12.7 [facility] Comment on above: Performed By: #### L [id number] ####New Client Banking Services Clerk: ANJALI MALLORY ([id number])[facility] ([facility])[address] [place] [address] [place] Platelets (Bld) [#/Vol] 127 10*3/uL Low 140-440 [facility] Comment on above: Performed By: #### L [id number] ####New Client Banking Services Clerk: ANJALI MALLORY ([phone])[facility] ([address] RBC (Bld) [#/Vol] 4.85 10*6/uL Normal 4.40-5.90 [facility] Comment on above: Performed By: #### L [id number] ####New Client Banking Services Clerk: ANJALI MALLORY ([id number])[facility])[address] [place] [address] WBC (Bld) [#/Vol] 8.4 10*3/uL Normal 3.6-10.7 [facility] Comment on above: Performed By: #### L [id number] ####New Client Banking Services Clerk: ANJALI MALLORY ([id number])[address] CBC panel Auto (Bld)on 06-23 Erythrocyte distribution width (RBC) [Ratio] 13.6 % 11.5 - 15.0 % [facility] Hematocrit (Bld) [Volume fraction] 45.2 % 40.0 - 52.0 % [facility] Hemoglobin (Bld) [Mass/Vol] 15.3 g/dL 13.0 - 18.0 g/dL [facility] Interpretation and review of laboratory results Abnormal [facility] IPF 1 [facility] MCH (RBC) [Entitic mass] 31.5 pg 26.0 - 34.0 pg [facility] MCHC (RBC) [Mass/Vol] 33.8 % 30.5 - 36.0 % [facility] MCV (RBC) [Entitic vol] 93.2 fL 77.0 - 99.0 fL [facility] Platelet mean volume (Bld) [Entitic vol] 9.3 fL 9.0 - 12.7 fL [facility] Platelets (Bld) [#/Vol] 127 10*3/uL Low 140 - 440 10*3/uL [facility] RBC (Bld) [#/Vol] 4.85 10*6/uL 4.40 - 5.9 0 10*6/uL [facility] WBC (Bld) [#/Vol] 8.4 10*3/uL 3.6 - 10.7 10*3/uL [facility] Nursing Noteon 06-23-2024 Nursing Note This RN called by nursing resident that patient wants to sign out of the hospital. This RN went to speak to patient and patient tearful and explained his back pain and the bed was to much and he wanted to go home. RN educated patient that at this time it was unsafe for him to leave as he still has drains and is very weak. Patient asked to be taken to the bathroom and he moved with max assist of 2 people. RN explained to patient again that at this time he was unsafe. Patient still requesting to leave. Dr. Briseno paged via secure chat, PRN muscle relaxer and tylenol given and ordered envella bed for patient. Patient at this time agreeable to stay and patient placed back to the chair. Call light within reach. [facility] Progress Noteon 06-23-2024 Progress Note paged by nurse that patient wanted to leave AMA. At bedside patient states that the hospital bed has been hurting his back. States he has been dealing with back pain for many years and the hospital bed is only making it worse. After speaking to the patient for a good amount of time he is understandable. Patient has not eaten anything since breakfast. He ended up ordering a yogurt which she still has not eaten. Explained to the patient that he needs good nutrition to repair his big wound. PT and OT worked with the patient today and recommended IP rehab. Patient needed to nursing staff to help him get to the bathroom. Explained to the patient that if he is needing multiple people to help him move around, then he needs help reconditioning his muscles at a facilty. Pt is agreeable. Ordered a new bed. [facility] Progress Note Nutrition rescreen completed. Patient referred to the Dietitian due to supplement order placed. JOANNA Landaverde [facility] Progress Note PAGING: The Acute Pa in Service providers are available exclusively via [email or web address] SECURE CHAT. APS does not utilize pagers. 06/23/2024 Lab Results Component Value Date CREATININE 1.30 (H) 06/23/2024 CREATININE 1.46 (H) 02/04/2024 AST 24 02/04/2024 ALT 24 02/04/2024 Discharge Recommendations: Pending Pain Management Adjuvants: 0700 --> 0700 06/21/2024 06/22/24 Scheduled APAP 1 g 3 g PRN Hydromorphone IV 3 0.5 mg tizanidine 8 mg Oxycodone 20 mg 40 mg Assessment / Pain Management Plan: Will follow. Acute Postsurgical Abdominal pain Multimodal pain regimen: BLOCK: n/a Continue Acetaminophen 1,000 mg po q8h scheduled ATC. Liver enzymes WNL, last checked: above 02/04/24 Decrease dose of IV to Hydromorphone 0.25 mg - 0.5 mg IVP qh4 prn moderate to severe breakthrough pain. Please utilize oral medications first. Continue Oxycodone 5 - 10 mg po q4h prn moderate to severe breakthrough pain. Continue tizanidine 4 mg Q 6 hours PRN for muscle spasms, per patient request Pt requesting information regarding newly approved non opioid Journavx for treatment of acute pain. Medication currently not available to order inpatient. Continue Naloxone 0.4 mg IVP prn opioid reversal. PRN if respiratory rate is less than 6/min and patient is difficult to arouse then notify physician STAT. Mix 9 mL of sodium chloride 0.9% with 0.4 mg (1 mL) of naloxone (NARCAN) in 10 mL syringe. (Note: dilution is 0.04 mg/mL) Give 0.08 mg (2 mL of special dilution), slow IV push, repeat up to 0.4 mg (10 mL) or until patient is responsive to physical stimulation and respiratory rate is equal to or greater than 6 breaths/min. Continue to observe, if no response within 3 minutes of administration of 0.4 mg (10 mL) total, repeat dose (0.4 mg as administered previously). Incisional hernia without obstruction or gangrene Pt is s/p open incisional hernia repair with mesh 06/21 See #1 Opioid tolerant, dependent Patient prescribed [place] 10/325 TID Constipation At risk for opioid induced constipation Patient currently receiving opioids for pain management necessitating a bowel regimen. Recommend initiating scheduled Sennakot-S 8.6/50mg, 1 tablet PO BID. Would also recommend Milk of Magnesia 400mg/5ml, administer 30mL by mouth daily PRN. Opioid Use, Acute on Chronic Reviewed and educated patient on responsible use of opioids: after surgery, it can be normal to experience pain. If it is mild and you can move about without great difficulty or discomfort, you may not need to take pain medication. It is very important to take your pain medication only as needed. Avoiding excessive or unnecessary medication, will enable you to progress your activity each day to improve your muscle tone and movement, deep breathing, digestion, circulation and your body's ability to heal itself. OARRS reviewed for past two years. (Recurrent opiates RX filled) [x] Patient's OARRS report (PDMP) have been reviewed. Pain Management: Starla Plan discussed with patient who appears to understand and agrees. Subjective: We have been asked to see this 73 y.o. male for acute post operative pain management s/p open incisional hernia repair with mesh 06/21 Reviewed ECG 06/21/24 JHOANA, no pages. On arrival, pt lying in bed. Pt appears well, comfortable. States he just worked with PT and is tired, slept poorly overnight. He is tolerating clear liquid diet, denies flatus. Denies vomiting. Continues to c/o intermittent abdominal pain, lower back pain. Patient educated on pain regimen, aware that oxycodone po, hydromorphone IV, tizanidine are PRN and patient must ask for these medications when needed. Educated patient to utilize oral pain medications as first line and reserve IV pain medications for severe breakthrough pain. Pt is realistic about pain control: Not all pain will be taken away, but pain should be tolerable/manageable with current regimen. Pt instructed to have staff page APS if pain becomes uncontrolled when utilizing present regimen. Pt agreeable, denies further questions. PMH reviewed below Pain Location: Back Aggravating Factors: Moving Sedation score: 1: Awake and alert Pain Severity: moderate Pain Quality: tender Alleviating Factors: Rest/Pain medications The patient's medical history and physical assessment, medications, allergies, patient's current medical condition, imaging, and labs were reviewed as part of this consultation. [x] Patient's Medications have been reviewed. Review of Systems Constitutional: Negative for chills and fever. HENT: Negative for trouble swallowing. Eyes: Negative for visual disturbance. Respiratory: Negative for shortness of breath. Cardiovascular: Negative for chest pain. Gastrointestinal: Positive for abdominal pain (surgical). Negative for nausea and vomiting. Musculoskeletal: Positive for back pain (chronic). Negative for arthralgias. Skin: Positive for wound (surg (more content not included)... Normal [facility] 30on 06-22-2024 30 Problem: Pain - Adul t Goal: Verbalizes/displays adequate comfort level or baseline comfort level Outcome: Progressing Flowsheets (Taken 06/22/20242122) Verbalizes/displays adequate comfort level or baseline comfort level: Assess pain using appropriate pain scale Administer analgesics based on type and severity of pain and evaluate response Problem: Safety - Adult Goal: Free from fall injury Outcome: Progressing Flowsheets (Taken 06/22/20242122) Free from fall injury: Instruct family/caregiver on patient safety Normal [facility] 30 Problem: Pain - Adul t Goal: Verbalizes/displays adequate comfort level or baseline comfort level 06/22/2024 09 by Christina Pedroza RN Outcome: Progressing 06/22/2024952 by Christina Pedroza RN Outcome: Progressing Problem: Safety - Adult Goal: Free from fall injury 06/22/2024 09 by Christina Pedroza RN Outcome: Progressing 06/22/2024952 by Christina Pedroza RN Outcome: Progressing Normal [facility] [id number] 06-22-2024 [id number] Discussed Home Care Services available to patient post DC from the hospital. Educated the patient on the services that are provided, objective of home care, and reason for the services. At this time the patient states they feel home care is not necessary. Pt has plenty of help at home and is not concerned about the prevena wound vac. The patient politely declined home care services. The patient was educated that should any needs arise post DC to follow up with their PCP. The patient was able to verbalize understanding. Home care to sign off. Please re-consult should any other needs arise prior to DC. [facility] BASIC METABOLIC PANELon 06-10 Anion gap [Moles/Vol] 9 mmol/L Normal 06-22 [facility] Comment on above: Performed By: #### L AB15 ####New Client Banking Services Clerk: ANJALI MALLORY ([phone])[facility] ([address] Calcium [Mass/Vol] 9.3 mg/dL Normal 8.8-10.0 [facility] Comment on above: Performed By: #### L AB15 ####New Client Banking Services Clerk: ANJALI MALLORY ([phone])[facility] ([facility])[address] [place] [address] Chloride [Moles/Vol] 102 mmol/L Normal 98-107 [facility] Comment on above: Performed By: #### L AB15 ####New Client Banking Services Clerk: ANJALI MALLORY ([phone])[facility] ([facility])[address] [place] [address] CO2 [Moles/Vol] 21 mmol/L Low 23-31 [facility] Comment on above: Performed By: #### L AB15 ####New Client Banking Services Clerk: ANJALI MALLORY ([phone])[facility] ([facility])[address] [place] [address] Creatinine [Mass/Vol] 1.29 mg/dL High 0.72-1.25 [facility] Comment on above: Performed By: #### L AB15 ####New Client Banking Services Clerk: ANJALI MALLORY ([phone])[facility] ([facility])[address] [place] [address] [place] GLOMERULAR FILTRATION RATE ML/MIN/1.73 SQ M.PREDICTED 58.2 mL/min/1.73m*2 Low >60.0 [facility] Comment on above: Result Comment: Calc ulation based on the Chronic Kidney Disease Epidemiology Collaboration (CKD-EPI) equation refit without adjustment for race Performed By: #### L AB15 ####New Client Banking Services Clerk: ANJALI MALLORY ([phone])[facility] ([facility])[address] [place] [address] [place] Glucose [Mass/Vol] 157 mg/dL High 82-115 [facility] Comment on above: Performed By: #### L AB15 ####New Client Banking Services Clerk: ANJALI MALLORY ([phone])[facility])[address] [place] [address] [place] Potassium [Moles/Vol] 4.6 mmol/L Normal 3.5-5.1 [facility] Comment on above: Result Comment: [facility] potassium values may be up to 0.5 mmol/L lower than serum values. Performed By: #### L AB15 ####New Client Banking Services Clerk: ANJALI MALLORY ([phone])[facility])[address] [place] [address] Sodium [Moles/Vol] 132 mmol/L Low 136-145 [facility] Comment on above: Performed By: #### L AB15 ####New Client Banking Services Clerk: ANJALI MALLORY ([phone])[facility] ([facility])[address] [place] [address] Urea nitrogen [Mass/Vol] 30 mg/dL High 9-23 [facility] Comment on above: Performed By: #### L AB15 ####New Client Banking Services Clerk: ANJALI MALLORY ([phone])[facility])[address] [place] [address] Basic metabolic 1998 panelon 06-22-2024 Anion gap [Moles/Vol] 9 mmol/L 3 - 13 mmol/L [facility] Calcium [Mass/Vol] 9.3 mg/dL 8.8 - 10. 0 mg/dL [facility] Chloride [Moles/Vol] 102 mmol/L 98 - 10 7 mmol/L [facility] CO2 [Moles/Vol] 21 mmol/L Low 23 - 31 mmol/L [facility] Creatinine [Mass/Vol] 1.29 mg/dL High 0.72 - 1.25 mg/dL [facility] GFR/1.73 sq M.predicted (S/P/Bld) [Vol rate/Area] 58.2 mL/min Low - PINF [facility] Comment on above: Calculation based on the Chronic Kidney Disease Epidemiology Collaboration (CKD-EPI) equation refit without adjustment for race Glucose [Mass/Vol] 157 mg/dL High 82 - 115 mg/dL [facility] Interpretation and review of laboratory results Abnormal [facility] Potassium [Moles/Vol] 4.6 mmol/L 3.5 - 5.1 mmol/L [facility] Comment on above: Plasma potassium ganesh ues may be up to 0.5 mmol/L lower than serum values. Sodium [Moles/Vol] 132 mmol/L Low 136 - 145 mmol/L [facility] Urea nitrogen [Mass/Vol] 30 mg/dL High 9 - 23 mg/dL [facility] CBC (HEMOGRAM)on 06-22-2024 Erythrocyte distribution width (RBC) [Ratio] 13.4 % Normal 11.5-15.0 [facility] Comment on above: Performed By: #### L AB294 #### New Client Banking Services Clerk: ANJALI MALLORY ([phone]) [facility]) [address] [place] [address] Hematocrit (Bld) [Volume fraction] 48.3 % Normal 40.0-52.0 [facility] Comment on above: Performed By: #### L AB294 #### New Client Banking Services Clerk: ANJALI MALLORY ([phone]) [facility]) [address] [place] [address] Hemoglobin (Bld) [Mass/Vol] 16.3 g/dL Normal 13.0-18.0 [facility] Comment on above: Performed By: #### L AB294 #### New Client Banking Services Clerk: ANJALI MALLORY ([phone]) [facility] ([facility]) [address] [place] [address] MCH (RBC) [Entitic mass] 31.5 pg Normal 26.0-34.0 [facility] Comment on above: Performed By: #### L AB294 #### New Client Banking Services Clerk: ANJALI MALLORY ([phone]) [facility]) [address] [place] [address] MCHC 33.7 % Normal 30.5-36.0 [facility] Comment on above: Performed By: #### L AB294 #### New Client Banking Services Clerk: ANJALI MALLORY ([phone]) [facility] ([facility]) [address] [place] [address] MCV (RBC) [Entitic vol] 93.4 fL Normal 77.0-99.0 [facility] Comment on above: Performed By: #### L AB294 #### New Client Banking Services Clerk: ANJALI MALLORY ([phone]) [facility]) [address] [place] [address] Platelet mean volume (Bld) [Entitic vol] 9.4 fL Normal 9.0-12.7 [facility] Comment on above: Performed By: #### L AB294 #### New Client Banking Services Clerk: ANJALI MALLORY ([phone]) [facility] ([facility]) [address] [place] [address] Platelets (Bld) [#/Vol] 149 10*3/uL Normal 140-440 [facility] Comment on above: Performed By: #### L AB294 #### New Client Banking Services Clerk: ANJALI MALLROY ([phone]) [facility] ([facility]) [address] [place] [address] RBC (Bld) [#/Vol] 5.17 10*6/uL Normal 4.40-5.90 [facility] Comment on above: Performed By: #### L AB294 #### New Client Banking Services Clerk: ANJALI MALLORY ([phone]) [facility] ([facility]) [address] [place] [address] WBC (Bld) [#/Vol] 12.0 10*3/uL High 3.6-10.7 [facility] Comment on above: Performed By: #### L AB294 #### New Client Banking Services Clerk: ANJALI MALLORY ([phone]) [facility] ([facility]) [address] [place] [address] CBC panel Auto (Bld)on 06-22 Erythrocyte distribution width (RBC) [Ratio] 13.4 % 11.5 - 15.0 % [facility] Hematocrit (Bld) [Volume fraction] 48.3 % 40.0 - 52.0 % [facility] Hemoglobin (Bld) [Mass/Vol] 16.3 g/dL 13.0 - 18.0 g/dL [facility] Interpretation and review of laboratory results Abnormal [facility] MCH (RBC) [Entitic mass] 31.5 pg 26.0 - 34.0 pg [facility] MCHC (RBC) [Mass/Vol] 33.7 % 30.5 - 36.0 % [facility] MCV (RBC) [Entitic vol] 93.4 fL 77.0 - 99.0 fL [facility] Platelet mean volume (Bld) [Entitic vol] 9.4 fL 9.0 - 12.7 fL [facility] [employer] Platelets (Bld) [#/Vol] 149 10*3/uL 140 - 440 10*3/uL [facility] [employer] RBC (Bld) [#/Vol] 5.17 10*6/uL 4.40 - 5.9 0 10*6/uL [facility] [employer] WBC (Bld) [#/Vol] 12 10*3/uL High 3.6 - 10.7 10*3/uL [facility] [employer] [facility] Consulton 06-22-2024 Consult PAGING: The Acute Pa in Service providers are available exclusively via [email or web address] SECURE CHAT. APS does not utilize pagers. 06/22/2024 Lab Results Component Value Date CREATININE 1.29 (H) 06/22/2024 CREATININE 1.46 (H) 02/04/2024 AST 24 02/04/2024 ALT 24 02/04/2024 Discharge Recommendations: Pending Pain Management Adjuvants: 0700 --> 0700 06/21/2024 Scheduled APAP 1 g PRN Hydromorphone IV 3 Oxycodone 20 mg Assessment / Pain Management Plan: Will follow. Acute Postsurgical Abdominal pain Multimodal pain regimen: BLOCK: n/a Continue Acetaminophen 1,000 mg po q8h scheduled ATC. Liver enzymes WNL, last checked: above 02/04/24 Continue Hydromorphone 0.25 mg - 0.5 mg IVP qh3 prn moderate to severe breakthrough pain. Please utilize oral medications first. Continue Oxycodone 5 - 10 mg po q4h prn moderate to severe breakthrough pain. Ordered tizanidine 4 mg Q 6 hours PRN for muscle spasms, per patient request Continue Naloxone 0.4 mg IVP prn opioid reversal. PRN if respiratory rate is less than 6/min and patient is difficult to arouse then notify physician STAT. Mix 9 mL of sodium chloride 0.9% with 0.4 mg (1 mL) of naloxone (NARCAN) in 10 mL syringe. (Note: dilution is 0.04 mg/mL) Give 0.08 mg (2 mL of special dilution), slow IV push, repeat up to 0.4 mg (10 mL) or until patient is responsive to physical stimulation and respiratory rate is equal to or greater than 6 breaths/min. Continue to observe, if no response within 3 minutes of administration of 0.4 mg (10 mL) total, repeat dose (0.4 mg as administered previously). Incisional hernia without obstruction or gangrene Pt is s/p open incisional hernia repair with mesh 06/21 See #1 Opioid tolerant, dependent Patient prescribed [place] 10/325 TID Constipation At risk for opioid induced constipation Patient currently receiving opioids for pain management necessitating a bowel regimen. Recommend initiating scheduled Sennakot-S 8.6/50mg, 1 tablet PO BID. Would also recommend Milk of Magnesia 400mg/5ml, administer 30mL by mouth daily PRN. Opioid Use, Acute on Chronic Reviewed and educated patient on responsible use of opioids: after surgery, it can be normal to experience pain. If it is mild and you can move about without great difficulty or discomfort, you may not need to take pain medication. It is very important to take your pain medication only as needed. Avoiding excessive or unnecessary medication, will enable you to progress your activity each day to improve your muscle tone and movement, deep breathing, digestion, circulation and your body's ability to heal itself. [place] reviewed for past two years. (Recurrent opiates RX filled) [x] Patient's OAR[place] report (PDMP) have been reviewed. Pain Management: Starla Plan discussed with patient who appears to understand and agrees. Subjective: We have been asked to see this 73 y.o. male for acute post operative pain management s/p open incisional hernia repair with mesh 06/21 Reviewed ECG 06/21/24 JHOANA, no pages. On arrival, pt lying in bed. Pt appears well, comfortable. Pt talkative and cooperative throughout exam, happy with current pain regimen. He states his pain is well controlled. Pt c/o muscle spasms, states he has chronic back pain He is requesting tizanidine Clear liquid diet ordered Patient educated on pain regimen, aware that oxycodone po, hydromorphone IV, tizanidine are PRN and patient must ask for these medications when needed. Educated patient to utilize oral pain medications as first line and reserve IV pain medications for severe breakthrough pain. Pt is realistic about pain control: Not all pain will be taken away, but pain should be tolerable/manageable with current regimen. Pt instructed to have staff page APS if pain becomes uncontrolled when utilizing present regimen. Pt agreeable, denies further questions. PMH reviewed below Pain Location: Back Aggravating Factors: Moving Sedation score: 1: Awake and alert Pain Severity: moderate Pain Quality: tender Alleviating Factors: Rest/Pain medications The patient's medical history and physical assessment, medications, allergies, patient's current medical condition, imaging, and labs were reviewed as part of this consultation. [x] Patient's Medications have been reviewed. Review of Systems Constitutional: Negative for chills and fever. HENT: Negative for trouble swallowing. Eyes: Negative for visual disturbance. Respiratory: Negative for shortness of breath. Cardiovascular: Negative for chest pain. Gastrointestinal: Positive for abdominal pain. Negative for nausea and vomiting. Musculoskeletal: Positive for back pain (chronic). Negative for arthralgias. Skin: Positive for wound (surgical). Neurological: Negative for dizziness and headaches. Psychiatric/Behavioral: Negative for confusion. The patient is not nervous/anxious. Physical Exam Vitals and nursing note review (more content not included)... Normal [facility] 30on 06-21-2024 30 Problem: Pain - Adul t Goal: Verbalizes/displays adequate comfort level or baseline comfort level Outcome: Progressing Flowsheets (Taken 06/21/20242200) Verbalizes/displays adequate comfort level or baseline comfort level: Assess pain using appropriate pain scale Administer analgesics based on type and severity of pain and evaluate response Problem: Safety - Adult Goal: Free from fall injury Outcome: Progressing Flowsheets (Taken 06/21/20242200) Free from fall injury: Instruct family/caregiver on patient safety Normal [facility] 30 Problem: Pain - Adul t Goal: Verbalizes/displays adequate comfort level or baseline comfort level 06/21/2024 1639 by Christina Pedroza RN Outcome: Progressing 06/21/2024 1517 by Christina Pedroza RN Outcome: Progressing Problem: Safety - Adult Goal: Free from fall injury 06/21/2024 1639 by Christina Pedroza RN Outcome: Progressing 06/21/2024 1517 by Christina Pedroza RN Outcome: Progressing Normal [facility] APTTon 06-21-2024 aPTT Coag (Bld) [Time] 27.0 s Normal 20.0-30.5 [facility] Comment on above: Result Comment: JUMANA Torres COMMENTS: NOTE: The therapeutic time for Heparin anticoagulation, based on Xa activity inhibition, is an APTT of 46-80 seconds. Performed By: #### L AB325, [id number] ####New Client Banking Services Clerk: ANJALI MALLORY ([phone])[facility] ([facility])[address] [place] [address] ECG 12-LEADon 06-21-2024 ECG 12-LEAD IMPRESSION: Sinus rhythm Prolonged CO interval Right bundle branch block Electronically Signed On 06-21-2024 08:46:22 EDT by Keanu Talavera Normal [facility] Laboratory - Chemistry and C hemistry - challengeon 06-21-2024 Glucose [Mass/Vol] 106 mg/dL High 70 - 100 mg/dL [facility] - Coagulationon 0 06-21-2024 PT Coag (Bld) [Time] 12 s 9.0 - 12.0 s [facility] No Panel Informationon 06-21 Interpretation and review of laboratory results Normal [facility] Sinus rhythm Prolonged CO interval Right bundle branch block Electronically Signed On 06-21-2024 08:46:22 EDT by Keanu Talavera CV Keanu Carter MD - 06/21/2024 IMPRESSION: Sinus rhythm Prolonged CO interval Right bundle branch block Electronically Signed On 06-21-2024 08:46:22 EDT by Keanu Talavera [facility] Interpretation and review of laboratory results Abnormal [facility] Performed by: [facility], [address] [place] [address] CLIA ID: [id number] [facility] No Panel InformationOrdered By: Keanu Talavera on 06-21-2024 P [place] 58 degrees [facility] [employer] Work Phone: CO Interval 240 ms [facility] [employer] Work Phone: QRS [place] -24 degrees [facility] [employer] Work Phone: QRSD Interval 168 ms [facility] [employer] Work Phone: QT Interval 449 ms [facility] [employer] Work Phone: QTC Interval 469 ms [facility] Work Phone: T Wave [place] 29 degrees [facility] Work Phone: [facility] Work Phone: Nursing Noteon 06-21-2024 Nursing Note Family to bedside fo r short visit Normal [facility] Nursing Note John updated by telephone. Waiting for bed assignment Normal [facility] Op Noteon 06-21-2024 Op Note Date: 06/21/2024 Location: [facility] OR Name: Jacky Ellis, : 1950, Diagnosis Pre-op Diagnosis * Incisional hernia without obstruction or gangrene [K43.2] Post-op Diagnosis * Incisional hernia without obstruction or gangrene [K43.2] Procedures OPEN INCISIONAL HERNIA REPAIR WITH MESH 84086 - CO RPR AA HERNIA 1ST 3-10 CM NCRC8/STRANGULATED POSSIBLE COMPONENT SEPARATION 57060 - CO MUSC MYOCUTANEOUS/FASCIOCUTA NEOUS FLAP TRUNK Surgeons * Antione Cardenas - Primary Kayleigh Lim PGY3 Procedure Summary Anesthesia: General ASA: III Estimated Blood Loss: 100cc Drains: Closed/Suction Drain Lateral RUQ Bulb 19 Fr. (Active) Dressing Status Clean, dry & intact 06/21/24 1015 Drainage Appearance Bloody 06/21/24 1015 Status To bulb suction 06/21/24 1015 Accordion/Bulb/Other Output (mL) 20 mL 06/21/24 1731 Closed/Suction Drain Lateral RLQ Bulb 19 Fr. (Active) Dressing Status Clean, dry & intact 06/21/24 1015 Drainage Appearance Bloody 06/21/24 1015 Status To bulb suction 06/21/24 1015 Accordion/Bulb/Other Output (mL) 10 mL 06/21/24 1731 Urethral Catheter Straight-tip (Active) Catheter Indications Short-term following a surgical procedure (i.e. Urological or Gynecological) or active irrigation 06/21/24 1459 Site Assessment Clean;Skin intact 06/21/24 1459 Collection Container Standard drainage bag 06/21/24 1459 Securement Method Securing device 06/21/24 1459 Catheter Best Practices Drainage tube clipped to bed;Catheter secured to thigh;Tamper seal intact;Bag below bladder;Bag not on floor;Lack of dependent loop in tubing;Drainage bag less than half full 06/21/24 1459 Catheter Status Draining;Patent 06/21/24 1459 Output (mL) 300 mL 06/21/24 1731 Specimens ID Source Type Tests Collected By Collected At Frozen? Priority Lab ID 1 Abdominal Wall Tissue TISSUE EXAM Antione Cardenas DO 06/21/24 0833 No Routine [id number] Description: INTESTINAL MASS 2 Abdominal Wall Tissue TISSUE EXAM Antioen Cardenas DO 06/21/24 0916 No Routine [id number] Description: DEBRIDED CONTENTS Implants Type Name Action Serial No. Mesh MESH SURG SYNECOR PRE [id number] - [id number] - [id number] Implanted [id number] Staff: Operator Receptionist: Rosana Steve RN Physician Certified Medical Coder: Earline Lew PA-C Scrub Person: Karla Cottrell RN [place]ior to Circ: Marybel Fisher RN Findings: see full op note Complications: None; patient tolerated the procedure well. Specimens Collected: Order Name Source Comment Collection Info Order Time PROTHROMBIN TIME If patient on coumadin within 4 days prior. Collected By: Marybel Fisher RN 06/21/2024 5:50 AM APTT Blood, Venous Collected By: Marybel Fisher RN 06/21/2024 8:30 AM TISSUE EXAM Abdominal Wall Collected By: Antione Cardenas DO 06/21/2024 8:33 AM Wound Class: Class I: Clean Blood Products: None Prophylactic Antibiotics: Procedure appropriate prophylactic antibiotic(s) given within 1 hour of surgical incision (two hours if receiving Vancomycin or flouroquinolone) Normal [facility] Op Note CAMMIE GOINS DO, [facility] LAPAROSCOPY, BARIATRIC AND ROBOTIC SURGERY [facility] OPERATIVE REPORT 06/21/24 PATIENT: Jacky Ellis DATE OF : 1950 PROCEDURE: OPEN RECURRENT (>10 CM) INCISIONAL HERNIA (INCARCERATED) REPAIR WITH LYSIS OF INTRAABDOMINAL ADHESIONS (26963) IMPLANTATION OF MESH RIGHT MYOCUTANEOUS FLAP (63357) LEFT MYOCUTANEOUS FLAP (94610, Modifier 59) DEBRIDEMENT OF SKIN, MUSCLE, AND FASCIA EXCISION, SMALL INTESTINE LESION WITHOUT ANASTOMOSIS (95483) NEGATIVE PRESSURE WOUND VAC THERAPY (PREVENA) >50 ( 30 cm x 3 cm x 1 cm) (15353) SURGEON: Antione Cardenas DO PHOTOGRAMMETRIC SURVEYOR: Earline Lew PA-C was asked to assist on this case as qualified residents were not available. PRE-OPERATIVE DIAGNOSES: RECURRENT (>10 CM) INCISIONAL HERNIA (INCARCERATED) Abnormal CT scan of the abdomen and pelvis Abdominal Pain History of heart attack History of stroke CHF with preserved ejection fraction History of umbilical hernia repair History of small bowel resection History of prior CABG Liver cirrhosis POST-OPERATIVE DIAGNOSES: Same, no identifiable mesh, excised small intestine lesion ANESTHESIA: General endotracheal, Transverse abdominis plane block FLUIDS: Per anesthesia ESTIMATED BLOOD LOSS: 10 mL URINE OUTPUT: Per anesthesia CONSENT: The patient was seen in the preoperative area. The details of the procedure were discussed including the risks, benefits, complications, alternatives, expected recovery and outcomes. The site of surgery was properly noted/marked if necessary per policy. INFECTION CONTROL: Procedure appropriate prophylactic antibiotic(s) given within 1 hour of surgical incision (two hours if receiving Vancomycin or flouroquinolone) No Infection Present SPECIMENS: ID Type Source Tests Collected by Time 1 : INTESTINAL MASS Tissue Abdominal Wall TISSUE EXAM Antione Cardenas DO 06/21/2024 0833 2 : DEBRIDED CONTENTS Tissue Abdominal Wall TISSUE EXAM Antione Cardenas DO 06/21/2024 0916 COMPLICATIONS: None; patient tolerated the procedure well. PREOPERATIVE MEDICATIONS: Pre-operative IV antibiotics: Clindamycin INDICATIONS FOR PROCEDURE: The patient is a 73 y.o. male with a large RECURRENT (>10 CM) INCISIONAL HERNIA (INCARCERATED) . The patient was evaluated and abdominal wall reconstruction was recommended. The risks, benefits and options of the procedure and additional possible interventions were reviewed and all questions were answered to the patient's satisfaction. DESCRIPTION OF PROCEDURE: Time Out, Prepping and Draping The patient was transported to the operating room and identified by name and number. The patient was placed on the operating room table in the supine position and general endotracheal anesthesia was administered by members of the anesthesia team. Following placement of sequential compression devices, OG and killian catheter, the patients extremities were positioned and protected. The abdomen was prepped and draped in standard surgical fashion. An operating room team time out was performed confirming the identity of the patient and the planned procedure. Abdominal Entry, Evaluation, Adhesiolysis Using a ten-blade scalpel, a midline incision was made from below xyphoid to above the pubis along pre marked lines. Previous scar was incorporated in an ellipsoid incision. Dissection was performed with electrocautery down to the level of the deep fascia. Limited lateral undermining was performed. Meticulous hemostatic technique was exercised throughout the procedure to minimize blood loss. The abdomen was then entered. The abdominal cavity was then inspected and significant adhesions to the anterior abdominal wall and small bowel was noted. A lysis of adhesions was performed. During this lysis, a small lesion was noted near the previous small bowel anastomosis. This lesion was resected in its entirety with sharp scissors and passed off as a separate specimen. Hemostasis was confirmed. Resected region of the small intestine appeared unremarkable without succus and with uninjured serosa. Next, the hernia was assessed and found to be large defect measuring 11 cm in total length. Incisional Hernia Repair, RIGHT Retro Rectus Release, Myocutaneous Flap We now proceeded with our right retro rectus release. The right rectus sheath was incised near the midline, on the posterior aspect, as close to the the junction of anterior and posterior rectus sheath, to preserve largest possible area of posterior rectus sheath. The posterior sheath was then leaving the rectus muscle attached to the anterior rectus sheath. Care was taken not to separate the epigastric vessels leaving them with the rectus muscle. The posterior rectus sheath was laterally up to the neurovascular bu (more content not included)... Normal [facility] PROTHROMBIN TIMEon 5 INR Coag (PPP) [Relative time] 1.1 {INR} Normal 0.9-1.1 [facility] Comment on above: Order Comment: If pa tient on coumadin within 4 days prior. Result Comment: Gerard mmended Anticoagulant Therapy: SEE BELOW ----- INR of 2.0 - 3.0 : - Prophylaxis of Venous Thrombosis (high-risk surgery) - Treatment of Venous Thrombosis - Treatment of Pulmonary Embolism (Includes tissue heart valves, Acute Myocardial Infarction to prevent systemic embolism, Valvular Heart Disease, and Atrial Fibrillation) ----- INR of 2.5 - 3.5 : - Mechanical Prosthetic Valves (high risk) - If oral anticoagulant therapy is used to prevent Myocardial Infarction Performed By: #### L [id number], [id number] ####New Client Banking Services Clerk: ANJALI MALLORY ([phone])[address] PT Coag (PPP) [Time] 12.0 s Normal 9.0-12.0 [facility] [employer] [facility] Comment on above: Order Comment: If pa tient on coumadin within 4 days prior. Performed By: #### L AB325, [id number] ####New Client Banking Services Clerk: ANJALI MALLORY ([phone])[facility] ([address] PT Coag (Bld) [Time]on 06-21 INR Coag (PPP) [Relative time] 1.1 {INR} 0.9 - 1.1 [facility] [employer] Comment on above: Recommended Anticoag ulant Therapy: SEE BELOW ----- INR of 2.0 - 3.0 : - Prophylaxis of Venous Thrombosis (high-risk surgery) - Treatment of Venous Thrombosis - Treatment of Pulmonary Embolism (Includes tissue heart valves, Acute Myocardial Infarction to prevent systemic embolism, Valvular Heart Disease, and Atrial Fibrillation) ----- INR of 2.5 - 3.5 : - Mechanical Prosthetic Valves (high risk) - If oral anticoagulant therapy is used to prevent Myocardial Infarction Vital signsOrdered By: Asael Talavera on 06-21-2024 Heart rate 66 /min bpm [email or web address] Work Phone: aPTT Coag (Bld) [Time]on aPTT Coag (PPP) [Time] 27 s 20.0 - 30.5 s [email or web address] NOTE: The therapeuti c time for Heparin anticoagulation, based on Xa activity inhibition, is an APTT of 46-80 seconds. [email or web address] [id number] 05-29-2024 [id number] Medication List Accurate as of May 29, 2024 11:55 AM. Always use your most recent med list. amiodarone 200 MG tablet Commonly known as: Pacerone Medication Adjustments for Surgery: Take morning of surgery atorvastatin 40 MG tablet Commonly known as: Lipitor Medication Adjustments for Surgery: Take morning of surgery bumetanide 1 MG tablet Commonly known as: Bumex Notes to patient: NOT TAKING carvedilol 25 MG tablet Commonly known as: Coreg Notes to patient: NOT TAKING Entresto 24-26 MG tablet Generic drug: sacubitril-valsartan Medication Adjustments for Surgery: Hold morning of surgery Farxiga 10 MG tablet Generic drug: dapagliflozin Medication Adjustments for Surgery: Stop 2 days before surgery Notes to patient: LAST DOSE ON 06/18/24 HYDROcodone-acetaminoph en 7.5-325 MG tablet Commonly known as: [place] oxyCODONE 5 MG immediate release tablet Commonly known as: Roxicodone Medication Adjustments for Surgery: Take morning of surgery Notes to patient: IF NEEDED Xarelto 15 MG tablet Generic drug: rivaroxaban Medication Adjustments for Surgery: Stop 3 days before surgery Notes to patient: LAST DOSE WILL BE ON 06/17/24 MANAGER INTENSIVE CARE AND PARKING IN THE MAIN DECK ARE FREE DAY OF SURGERY. PARKING IN THE DECK-- AFTER PARKING TAKE THE ELEVATOR TO LEVEL ONE AND TAKE THE BRIDGE TO THE HOSPITAL. GO TO THE RIGHT AND GO AROUND THE CORNER TO THE SAME DAY SURGERY DESK AND CHECK IN THERE. IF GOING IN THE MAIN ENTRANCE-- TURN LEFT AND GO DOWN THE JIN TO THE H ELEVATORS AND TAKE THEM TO ONE, LEFT OFF THE ELEVATOR AND GO AROUND TO THE SAME DAY DESK AND CHECK IN. Nothing to eat after midnight. You may have clear liquids up until 2 hours before surgery. Which consists of water, apple or cranberry juice, black coffee or tea (no cream ,milk or dairy products). You may have soda , gatorade or powerade and flavored water. Additional Instructions: You may take your prescription pain medication. You may take Tylenol for pain. NO Motrin, ibuprofen or Advil for 24 hours prior to surgery or longer if instructed by your surgeon. NO Aleve or Naprosyn for 5 days prior to surgery or longer if instructed by your surgeon. IF YOU TAKE BLOOD THINNERS OR ASPIRIN:LAST DOSE OF XARELTO WILL BE ON 05/20/24 Follow any instructions given to you by Dr. CARDENAS Showeladio with an antibacterial soap such as Dial or Safeguard THE MORNING OF SURGERY No makeup, lotion, powder, deodorant or body spays. No hair products. Remove all jewelry and leave it at home. Wear loose comfortable clothing to go home in. You may brush your teeth morning of surgery. Do not wear contacts day of surgery. No marijuana (THC), smoking or alcohol for 24 hours prior to surgery. Please arrange for a responsible adult to drive you home after your surgery and that there is a responsible adult with you for 24 hours post discharge. If you have specific questions, please call your surgeon. You will receive a call the day before your surgery to verify your arrival time and date. You will be asked to arrive at least two hours prior to your scheduled surgery time. Please bring your [facility] Surgical folder and medication list with you day of surgery. We encourage you to write down any questions you may have for the surgeon, anesthesiologist, or other members of the surgical team and bring it with you the day of surgery. Please bring photo ID and insurance information. Normal [facility] 36on 05-29-2024 36 Received OV from [employer] management on 05/26/24 - patient to discontinue [place] 7.5 and start oxycodone 5 TID PRN. Per notes, postop pain to be controlled by surgeon, but happy to help if needed. Normal [facility] HEMOGLOBIN A1Con 05-29-2024 Glucose [Mass/Vol] 108 mg/dL Normal [facility] Comment on above: Result Comment: JUMANA Torres COMMENTS: HbA1c values of 5.7-6.4 percent indicate an increased risk for developing diabetes mellitus. HbA1c values greater than or equal to 6.5 percent are diagnostic of diabetes mellitus. For diagnosis of diabetes in individuals without unequivocal hyperglycemia, results should be confirmed by repeat testing. Performed By: #### L AB90 ####New Client Banking Services Clerk: ANJALI MALLORY ([phone])[facility] ([facility])[address] [place] [address] HEMOGLOBIN A1C 5.4 %HbA1C Normal <5.7 [facility] Comment on above: Result Comment: Norm al less than 5.7% Prediabetes 5.7% to 6.4% Diabetes 6.5% or higher --HgbA1C levels may not be accurate in patients who have renal disease, received recent blood transfusions, are anemic, or who have dyshemoglobinemia. Performed By: #### L AB90 ####New Client Banking Services Clerk: ANJALI MALLORY ([phone])[facility])[address] [place] [address] MRSA BY PCRon 05-29-2024 MRSA BY PCR STAPHYLOCOCCUS AUREU S Reference Not Detected Not Detected MECA GENE Reference Not Detected Not Detected ORDER COMMENTS: No Staphylococcus aureus detected. Negative nasal MRSA PCR has a high negative predictive value for MRSA pneumonia. Consider stopping Vancomycin if no other clinical indication. Contact Antimicrobial Stewardship for further recommendations. Staphylococcus aureus nasal screen by real-time PCR. This test was modified and its performance characteristics determined by [facility]. The U. S. Food and Drug Administration has not approved or cleared this test; however, FDA clearance or approval is not currently required for clinical use. The results are not intended to be used as the sole means for clinical diagnosis or patient management decisions. Normal [facility] Comment on above: Performed By: #### L [id number] #### New Client Banking Services Clerk: ANJALI MALLORY ([phone]) [facility]) [address] [place] [address] Progress Noteon 05-29-2024 Progress Note [facility] Traore Hernandez : 1950 Primary Care Physician: Hoda Grayson The patient and/or family/surrogate voluntarily agreed to participate in ACP services. Patient?s cognitive capacity: A+OX3 Code Status: [x] [FULL CODE - Continue all advanced life support: CPR,intubation,invasive procedures] [_] [DNR-CCA - DO NOT do CPR, intubation] [_] [DNR-TREATER - Comfort care only] [_] DNR form [was/was not] signed Summary of discussion: The patient health care POA/ surrogate is the following: not assigned. [Condition that instigated the ACP on this DOS, relevant PMH, functional status, goals of care, and whom this was discussed with including names and relationship to the patient, and any relevant advance care documentation discussion] I answered all the patient/family questions that I could within the range and scope of the current medical situation. We discussed the medical conditions, risks, benefits, outcomes, and goals of care at this time for the patient's medical issues at hand in the face of the patient's chronic issues and current presentation. Total time spent: 5 minutes were spent discussing the patient's resuscitation status, advance care planning, and end of life care, with patient and/or family/surrogate. 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 Asked about specific pain management recs following surgery. She will give me a call back after she speaks to Dr. Sargent. [facility] 36 New Itinerary mailed to pt through [facility] 36 Spoke to the patient and let him know the surgery has been moved to 06/21/24 at 7:30, arrival time at 5:30. Pt advised to keep original PAT at 05/29/24 at 11:00 Pt post op scheduled 07/07/24 at 1:00 pm [facility] 36on 05-24-2024 36 Spoke to Gali steele [facility], she will fax results [facility] HFPon 05-19-2024 Bili Indirect 0.4 mg/dL [facility] Comment on above: Performed By: #### A DIFF, CMP, CBC, LIP, MDW, ANEU, GFR #### [facility] [address] [place], [place] [address] Albumin Level 4.2 G/dL Normal 3.4-4.8 [facility] Comment on above: Performed By: #### A DIFF, CMP, CBC, LIP, MDW, ANEU, GFR #### [facility] [address] [place], [place] [address] Albumin/Globulin [Mass ratio] 1.2 {ratio} Normal 1.1-2.5 [facility] Comment on above: Performed By: #### A DIFF, CMP, CBC, LIP, MDW, ANEU, GFR #### [address] [address] ALP [Catalytic activity/Vol] 130 U/L Normal 40-135 [facility] Comment on above: Performed By: #### A DIFF, CMP, CBC, LIP, MDW, ANEU, GFR #### [address] [address] ALT [Catalytic activity/Vol] 36 U/L Normal 16-63 [facility] Comment on above: Performed By: #### A DIFF, CMP, CBC, LIP, MDW, ANEU, GFR #### [address] [address] AST [Catalytic activity/Vol] 24 U/L Normal 10-40 [facility] Comment on above: Performed By: #### A DIFF, CMP, CBC, LIP, MDW, ANEU, GFR #### [place] [address] Bili Direct 0.3 mg/dL High 0.0-0.2 [facility] Comment on above: Result Comment: Use of this assay is not recommended for patients undergoing treatment with eltrombopag due to the potential for falsely elevated results. Performed By: #### A DIFF, CMP, CBC, LIP, MDW, ANEU, GFR #### [place] [id number] Bili Total 0.7 mg/dL Normal 0.2-1.0 [facility] Comment on above: Result Comment: Use of this assay is not recommended for patients undergoing treatment with eltrombopag due to the potential for falsely elevated results. Performed By: #### A DIFF, CMP, CBC, LIP, MDW, ANEU, GFR #### [address] [address] Globulin 3.4 G/dL Normal 1.5-3.8 [facility] Comment on above: Performed By: #### A DIFF, CMP, CBC, LIP, MDW, ANEU, GFR #### [address] [address] Total Protein 7.6 G/dL Normal 6.4-8.2 [facility] Comment on above: Performed By: #### A DIFF, CMP, CBC, LIP, MDW, ANEU, GFR #### [facility] [address] [place], [place] [address] LABORATORYOrdered By: SYSTEM SYSTEM on 05-19-2024 Albumin BCP dye [Mass/Vol] 4.2 G/dL Normal 3.4 - 4.8 G/dL AO ADM SS Albumin/Globulin [Mass ratio] 1.2 {ratio} Normal 1.1 - 2.5 ratio AO ADM SS ALP [Catalytic activity/Vol] 130 U/L Normal 40 - 135 U/L AO ADM SS ALT With P-5'-P [Catalytic activity/Vol] 36 U/L Normal 16 - 63 U/L AO ADM SS AST With P-5'-P [Catalytic activity/Vol] 24 U/L Normal 10 - 40 U/L AO ADM SS Bilirubin [Mass/Vol] 0.7 mg/dL Normal 0.2 - 1 .0 mg/dL AO ADM SS Comment on above: Interpretive Data: U se of this assay is not recommended for patients undergoing treatment with eltrombopag due to the potential for falsely elevated results. Bilirubin.direct [Mass/Vol] 0.4 mg/dL Invalid Interpretation Code AO Chemistry S Bilirubin.direct [Mass/Vol] 0.3 mg/dL High 0.0 - 0.2 mg/dL AO ADM SS Comment on above: Interpretive Data: U se of this assay is not recommended for patients undergoing treatment with eltrombopag due to the potential for falsely elevated results. Globulin 3.4 G/dL Normal 1.5 - 3.8 G/dL AO ADM SS Prealbumin [Mass/Vol] 22.1 mg/dL Normal 10.0 - 40.0 mg/dL ADM SS Comment on above: Interpretive Data: * *Note - New Reference Range in effect 19 Protein [Mass/Vol] 7.6 G/dL Normal 6.4 - 8.2 G/dL AO ADM SS PRALBon 05-19-2024 Prealbumin [Mass/Vol] 22.1 mg/dL Normal 10.0-40.[address] [facility] Comment on above: Result Comment: No te - New Reference Range in effect 19 Performed By: #### A DIFF, CMP, CBC, LIP, MDW, ANEU, GFR #### [address] [address] 36on 05-18-2024 36 Spoke to pt. Pt will get this done tomorrow. [facility] 36 Called [facility] - at first they stated they did not have the order. I explained that I personally faxed the order on 05/11. She put me on hold and came back and stated she had the order but they did not draw the blood when he came in on 05/12. They only makeda the blood from a different physician - Dr Maddox. They did not draw the blood ordered from Earline Lew, only from Dr Kowalski. They state the patient did not specify he had orders from more than one physician. She stated she had the order and it was good for a year. [facility] 36 Pt had lab work done at [facility] a couple of weeks ago and wants the results. Normal [facility] .Auto Diffon 05-12-2024 Basophil, Absolute 0.0 10 3/mcL Normal 0.0-0.2 [facility] Comment on above: Performed By: #### P BNP, BMP, ANEU, GFR, CBC, ADIFF #### [address] [address] Basophils/100 WBC (Bld) 0.3 % Normal 0.0-2.5 [facility] Comment on above: Performed By: #### P BNP, BMP, ANEU, GFR, CBC, ADIFF #### [address] [address] Eosinophil, Absolute 0.2 10 3/mcL Normal 0.0-0.7 [facility] Comment on above: Performed By: #### P BNP, BMP, ANEU, GFR, CBC, ADIFF #### [address] [address] Eosinophils/100 WBC (Bld) 2.2 % Normal 0.0-7.0 [facility] Comment on above: Performed By: #### P BNP, BMP, ANEU, GFR, CBC, ADIFF #### [address] [address] Lymphocyte, Absolute 1.4 10 3/mcL Normal 0.9-4.3 [facility] Comment on above: Performed By: #### P BNP, BMP, ANEU, GFR, CBC, ADIFF #### [address] [address] Lymphocytes/100 WBC (Bld) 16.2 % Low 20.0-40.0 [facility] Comment on above: Performed By: #### P BNP, BMP, ANEU, GFR, CBC, ADIFF #### [address] [address] Monocyte, Absolute 0.9 10 3/mcL Normal 0.1-1.4 [facility] Comment on above: Performed By: #### P BNP, BMP, ANEU, GFR, CBC, ADIFF #### [address] [address] Monocytes/100 WBC (Bld) 9.9 % Normal 2.0-13.0 [facility] Comment on above: Performed By: #### P BNP, BMP, ANEU, GFR, CBC, ADIFF #### [address] [address] Neutrophils/100 WBC (Bld) 71.4 % Normal 50.0-75.0 [facility] Comment on above: Performed By: #### P BNP, BMP, ANEU, GFR, CBC, ADIFF #### [address] [address] .GFRon 05-12-2024 GFR Non- 43 ml/min/1.73sqm Normal [facility] Comment on above: Result Comment: GFR Population mean for , Non- Americans Ages 20-29 = 116 mL/min/1.73 sq.m. Ages 30-39 = 107 mL/min/1.73 sq.m. Ages 40-49 = 99 mL/min/1.73 sq.m. Ages 50-59 = 93 mL/min/1.73 sq.m. Ages 60-69 = 85 mL/min/1.73 sq.m. Ages 70+ = 75 mL/min/1.73 sq.m. Chronic Kidney Disease: Less than 60 mL/min/1.73 square meters End Stage Renal Disease: Less than 15 mL/min/1.73 square meters Performed By: #### A DIFF, CMP, CBC, LIP, MDW, ANEU, GFR #### [place] [id number] [place], [place] [address] GFR 52 ml/min/1.73sqm Normal [facility] Comment on above: Result Comment: GFR Population mean for , Non- Americans Ages 20-29 = 116 mL/min/1.73 sq.m. Ages 30-39 = 107 mL/min/1.73 sq.m. Ages 40-49 = 99 mL/min/1.73 sq.m. Ages 50-59 = 93 mL/min/1.73 sq.m. Ages 60-69 = 85 mL/min/1.73 sq.m. Ages 70+ = 75 mL/min/1.73 sq.m. Chronic Kidney Disease: Less than 60 mL/min/1.73 square meters End Stage Renal Disease: Less than 15 mL/min/1.73 square meters Performed By: #### A DIFF, CMP, CBC, LIP, MDW, ANEU, GFR #### [address] [address] .NEUABSon 05-12-2024 Neutrophil, Absolute 6.2 10 3/mcL Normal 2.3-8.1 [facility] Comment on above: Performed By: #### P BNP, BMP, ANEU, GFR, CBC, ADIFF #### [address] [address] BMPon 05-12-2024 BUN/Creatinine Ratio 27 ratio Normal 7-27 [facility] Comment on above: Performed By: #### A DIFF, CMP, CBC, LIP, MDW, ANEU, GFR #### [address] [address] Calcium [Mass/Vol] 9.6 mg/dL Normal 8.4-10.2 [facility] Comment on above: Performed By: #### A DIFF, CMP, CBC, LIP, MDW, ANEU, GFR #### [address] [address] Chloride [Moles/Vol] 102 mmol/L Normal 98-107 [facility] Comment on above: Performed By: #### A DIFF, CMP, CBC, LIP, MDW, ANEU, GFR #### [address] [address] CO2 [Moles/Vol] 28 mmol/L Normal 23-31 [facility] Comment on above: Performed By: #### A DIFF, CMP, CBC, LIP, MDW, ANEU, GFR #### [address] [address] Creatinine [Mass/Vol] 1.58 mg/dL High 0.70-1.[address] [facility] Comment on above: Result Comment: Test ing performed on Siemens Dimension EXL analyzer using a modified kinetic Kristen technique. Performed By: #### A DIFF, CMP, CBC, LIP, MDW, ANEU, GFR #### [address] [address] Electrolyte Balance 6.0 mEq/L Normal 4.0-15.0 [facility] Comment on above: Performed By: #### A DIFF, CMP, CBC, LIP, MDW, ANEU, GFR #### [address] [address] Glucose [Mass/Vol] 115 mg/dL High 83-110 [facility] Comment on above: Performed By: #### A DIFF, CMP, CBC, LIP, MDW, ANEU, GFR #### [address] [address] Potassium [Moles/Vol] 4.9 mmol/L Normal 3.5-5.[address] [facility] Comment on above: Performed By: #### A DIFF, CMP, CBC, LIP, MDW, ANEU, GFR #### [address] [address] Sodium [Moles/Vol] 136 mmol/L Normal 136-145 [facility] Comment on above: Performed By: #### A DIFF, CMP, CBC, LIP, MDW, ANEU, GFR #### [address] [address] Urea nitrogen [Mass/Vol] 43 mg/dL High 7-18 [facility] Comment on above: Performed By: #### A DIFF, CMP, CBC, LIP, MDW, ANEU, GFR #### [address] [address] CBCon 05-12-2024 Erythrocyte distribution width (RBC) [Ratio] 14.3 % Normal 11.5-15.5 [facility] Comment on above: Performed By: #### P BNP, BMP, ANEU, GFR, CBC, ADIFF #### [address] [address] Hematocrit (Bld) [Volume fraction] 51.2 % Normal 40.0-52.0 [facility] Comment on above: Performed By: #### P BNP, BMP, ANEU, GFR, CBC, ADIFF #### [address] [address] Hgb 17.1 G/dL Normal 13.0-17.5 [facility] Comment on above: Performed By: #### P BNP, BMP, ANEU, GFR, CBC, ADIFF #### [address] [address] MCH (RBC) [Entitic mass] 32.3 pg Normal 27.0-33.0 [facility] Comment on above: Performed By: #### P BNP, BMP, ANEU, GFR, CBC, ADIFF #### [address] [address] MCHC 33.4 G/dL Normal 32.0-36.0 [facility] Comment on above: Performed By: #### P BNP, BMP, ANEU, GFR, CBC, ADIFF #### [address] [address] MCV (RBC) [Entitic vol] 96.7 fL Normal 81.0-100.0 [facility] Comment on above: Performed By: #### P BNP, BMP, ANEU, GFR, CBC, ADIFF #### [address] [address] Platelet 165 10 3/mcL Normal 150-450 [facility] Comment on above: Performed By: #### P BNP, BMP, ANEU, GFR, CBC, ADIFF #### [place] [address] [place], [place] [address] Platelet mean volume (Bld) [Entitic vol] 7.6 fL Normal 6.4-10.5 [facility] Comment on above: Performed By: #### P BNP, BMP, ANEU, GFR, CBC, ADIFF #### [place] [address] [place], [place] [address] RBC 5.29 10 6/mcL Normal 4.50-6.00 [facility] Comment on above: Performed By: #### P BNP, BMP, ANEU, GFR, CBC, ADIFF #### [address] [address] WBC 8.6 10 3/mcL Normal 4.5-10.8 [facility] Comment on above: Performed By: #### P BNP, BMP, ANEU, GFR, CBC, ADIFF #### [address] [address] LABORATORYOrdered By: SYSTEM SYSTEM on 05-12-2024 Basophils (Bld) [#/Vol] 0.0 103/mcL Normal 0.0 - 0.2 10^3/mcL AO Workflow SS Basophils/100 WBC (Bld) 0.3 % Normal 0.0 - 2.5 % AO Workflow SS Calcium [Mass/Vol] 9.6 mg/dL Normal 8.4 - 10. 2 mg/dL AO ADM SS Chloride [Moles/Vol] 102 mmol/L Normal 98 - 10 7 mmol/L AO ADM SS CO2 [Moles/Vol] 28 mmol/L Normal 23 - 31 mmol/L AO ADM SS Creatinine [Mass/Vol] 1.58 mg/dL High 0.70 - 1.30 mg/dL AO ADM SS Comment on above: Interpretive Data: T esting performed on Siemens Dimension EXL analyzer using a modified kinetic Kristen technique. Electrolyte Balance 6.0 mEq/L Normal 4.0 - 15 .0 mEq/L AO ADM SS Eosinophil, Absolute 0.2 103/mcL Normal 0.0 - 0 .7 10^3/mcL AO Workflow SS Eosinophils/100 WBC (Bld) 2.2 % Normal 0.0 - 7.0 % AO Workflow SS Erythrocyte distribution width (RBC) [Ratio] 14.3 % Normal 11.5 - 15.5 % AO Workflow SS GFR/1.73 sq M.predicted among blacks MDRD (S/P/Bld) [Vol rate/Area] 52 ml/min/1.73sqm Invalid Interpretation Code AO Chemistry S Comment on above: Interpretive Data: GFR Population mean for , Non- Americans Ages 20-29 = 116 mL/min/1.73 sq.m. Ages 30-39 = 107 mL/min/1.73 sq.m. Ages 40-49 = 99 mL/min/1.73 sq.m. Ages 50-59 = 93 mL/min/1.73 sq.m. Ages 60-69 = 85 mL/min/1.73 sq.m. Ages 70+ = 75 mL/min/1.73 sq.m. Chronic Kidney Disease: Less than 60 mL/min/1.73 square meters End Stage Renal Disease: Less than 15 mL/min/1.73 square meters GFR/1.73 sq M.predicted among non-blacks MDRD (S/P/Bld) [Vol rate/Area] 43 ml/min/1.73sqm Invalid Interpretation Code AO Chemistry S Comment on above: Interpretive Data: GFR Population mean for , Non- Americans Ages 20-29 = 116 mL/min/1.73 sq.m. Ages 30-39 = 107 mL/min/1.73 sq.m. Ages 40-49 = 99 mL/min/1.73 sq.m. Ages 50-59 = 93 mL/min/1.73 sq.m. Ages 60-69 = 85 mL/min/1.73 sq.m. Ages 70+ = 75 mL/min/1.73 sq.m. Chronic Kidney Disease: Less than 60 mL/min/1.73 square meters End Stage Renal Disease: Less than 15 mL/min/1.73 square meters Glucose [Mass/Vol] 115 mg/dL High 83 - 110 mg/dL AO ADM SS Hematocrit (Bld) [Volume fraction] 51.2 % Normal 40.0 - 52.0 % AO Workflow SS Hemoglobin (Bld) [Mass/Vol] 17.1 G/dL Normal 13.0 - 17.5 G/dL AO Workflow SS Lymphocytes (Bld) [#/Vol] 1.4 103/mcL Normal 0.9 - 4.3 10^3/mcL AO Workflow SS Lymphocytes/100 WBC (Bld) 16.2 % Low 20.0 - 40.0 % AO Workflow SS MCH (RBC) [Entitic mass] 32.3 pg Normal 27.0 - 33.0 pg AO Workflow SS MCHC 33.4 G/dL Normal 32.0 - 36.0 G/dL AO Workflow SS MCV (RBC) [Entitic vol] 96.7 fL Normal 81.0 - 100.0 fL AO Workflow SS Monocytes (Bld) [#/Vol] 0.9 103/mcL Normal 0.1 - 1.4 10^3/mcL AO Workflow SS Monocytes/100 WBC (Bld) 9.9 % Normal 2.0 - 13.0 % AO Workflow SS Natriuretic peptide.B prohormone N-Terminal [Mass/Vol] 974 pg/mL High 0 - 125 pg/mL AO ADM SS Comment on above: Interpretive Data: N T-proBNP results of less than 300 pg/mL effectively rules out acute congestive heart failure with 99% negative predictive value. Neutrophils (Bld) [#/Vol] 6.2 103/mcL Normal 2.3 - 8.1 10^3/mcL AO Workflow SS Neutrophils/100 WBC (Bld) 71.4 % Normal 50.0 - 75.0 % AO Workflow SS Platelet mean volume (Bld) [Entitic vol] 7.6 fL Normal 6.4 - 10.5 fL AO Workflow SS Platelets (Bld) [#/Vol] 165 103/mcL Normal 150 - 450 10^3/mcL AO Workflow SS Potassium [Moles/Vol] 4.9 mmol/L Normal 3.5 - 5.1 mmol/L AO ADM SS RBC (Bld) [#/Vol] 5.29 106/mcL Normal 4.50 - 6.0 0 10^6/mcL AO Workflow SS Sodium [Moles/Vol] 136 mmol/L Normal 136 - 145 mmol/L AO ADM SS Urea nitrogen [Mass/Vol] 43 mg/dL High 7 - 18 mg/dL AO ADM SS Urea nitrogen/Creatinine [Mass ratio] 27 ratio Normal 7 - 27 ratio AO ADM SS WBC (Bld) [#/Vol] 8.6 103/mcL Normal 4.5 - 10.8 10^3/mcL AO Workflow SS PBNPon 05-12-2024 Natriuretic peptide B (Bld) [Mass/Vol] 974 pg/mL High 0-125 [facility] Comment on above: Result Comment: NT-p roBNP results of less than 300 pg/mL effectively rules out acute congestive heart failure with 99% negative predictive value. Performed By: #### A DIFF, CMP, CBC, LIP, MDW, ANEU, GFR #### [facility] [address] [place], [place] [address] 05-11-2024 36 Spoke to patient. He would like it faxed to [facility]. Faxed to [facility] - [phone] [facility] 05-08-2024 29 Addended by: EARLINE LEW on: 05/08/2024 01:02 PM Modules accepted: Orders [facility] 05-08-2024 36 Order placed for further blood work - checking protein levels. Please have him complete. Can either come to [facility] or order can be sent to him to complete closer to home. [facility] 04-24-2024 36 Recent lab work reviewed - no protein/prealbumin checked. Will need this re-valuated at the end of the month to make sure protein levels have improved. I have a reminder set. Thanks. [facility] 04-21-2024 36 Labs uploaded from [facility] into [employer] [facility] 04-20-2024 36 [email or web address] called back to confirm the fax # and stated I muffled it in my Vm. I gave the fax # and confirmed she had it. She stated she would send all the labs that she had. [facility] 36 I called off again. Tried to get a person so pressed 1. The girl put me through to the nurses line that put me on an extensive hold. After awhile it gave me the option to leave a message. I left a msg and left all the information. [facility] 04-19-2024 36 Rec'd a call from [facility] asking if I had rec'd the fax. I confirmed I had NOT received the fax. I gave her my email. There is still no email or fax an hour later. Will call back to office if nothing arrives after lunch. [place] [id number] 36 LVM on office manage r voicemail requesting labs Requested a call back if unable to send for some reason Have left messages and talked to one person [address] 04-17-2024 36 LVM to office to fax Confirmed our fax and let them know I did not receive the labs [address] 04-13-2024 36 Spoke to Kenan's office and the womanw as going to fax his bloodwork results. [address] 04-11-[address] Grayson's office and had to leave a VM> Unable to talk to a person. Not sure office was opened Requested they fax latest blood work and if they had any questions or were unable to to please call [facility] 36 Called the patient t o relay below message. He stated there was no reason to go to the ER because all they will do is give me 2 aspirin and slap a bandaid on it Pt states he got his bloodwork last week and Dr Grayson stated his protein levels are much better Pt thought it had been more than 3 mths, confirmed with pt date of last recommendation was the end of Jan . Will call Dr Grayson to get latest bloodwork faxed [place] [phone] Per previous TE - re c'd 3 months of protein shakes to increase protein levels, which will improve postop healing. He will be due for repeat blood work in about 1 month for re-evaluation. Agree with basic wound care for umbilicus - keep site clean with soap and water, dressed with gauze to protect clothes. If this or his abdominal pain worsens, then rec'd ER for evaluation if needed. Otherwise, I will pass this along to Dr. Cardenas for any additional recommendations. For now, will plan for blood work in a month. Thanks. [facility] 36 Pt called in and sta kira he was bleeding out of his navel area. Would like to know when he can get his surgery done. He is using cotton squares, and replacing them every 3 hours. Does not want to go to ED since he stated they will probably just give him a bandage and send him on his way. -Taking 10 mg oxy taking (from pain management). -stated does not have any other symptoms other than abdominal pain [facility] PMDSon 04-11-2024 [employer] 13 Summary FINAL [facility] Comment on above: Result Comment: ==== TOXASSURE COMP DRUG ANALYSIS,UR ==== Test Result Flag Units Drug Present and Declared for Prescription Verification Carboxy-THC 191 EXPECTED ng/mg creat Carboxy-THC is a metabolite of tetrahydrocannabinol (THC). Source of THC is most commonly herbal marijuana or marijuana-based products, but THC is also present in a scheduled prescription medication. Trace amounts of THC can be present in hemp and cannabidiol (CBD) products. This test is not intended to distinguish between dqpif-8-hvioyczlvoqyjslebkaw, the predominant form of THC in most herbal or marijuana-based products, and dicil-2-xvxwrrxspwrttfvcfook. Hydrocodone 1713 EXPECTED ng/mg creat Hydromorphone 365 EXPECTED ng/mg creat Dihydrocodeine 412 EXPECTED ng/mg creat Norhydrocodone 1495 EXPECTED ng/mg creat Sources of hydrocodone include scheduled prescription medications. Hydromorphone, dihydrocodeine and norhydrocodone are expected metabolites of hydrocodone. Hydromorphone and dihydrocodeine are also available as scheduled prescription medications. Acetaminophen PRESENT EXPECTED Drug Present not Declared for Prescription Verification Alcohol, Ethyl 0.045 UNEXPECTED g/dL Sources of ethyl alcohol include alcoholic beverages or as a fermentation product of glucose; glucose is present in this specimen. Interpret result with caution, as the presence of ethyl alcohol is likely due, at least in part, to fermentation of glucose. Metoprolol PRESENT UNEXPECTED Drug Absent but Declared for Prescription Verification Tizanidine Not Detected UNEXPECTED Tizanidine, as indicated in the declared medication list, is not always detected even when used as directed. ==== Test Result Flag Units Ref Range Creatinine 77 mg/dL >=20 ==== Declared Medications: The flagging and interpretation on this report are based on the following declared medications. Unexpected results may arise from inaccuracies in the declared medications. Note: The testing scope of this panel includes these medications: Hydrocodone ([place]) Marijuana (THC) Note: The testing scope of this panel does not include small to moderate amounts of these reported medications: Acetaminophen ([place]) Tizanidine (Zanaflex) Note: The testing scope of this panel does not include following reported medications: Cannabidiol ==== For clinical consultation, please call . ==== Performed At: [facility] [address] [place], [place] [id number] [facility] Ph:[phone] Performed By: #### [id number] #### [facility] [address] [place] [address] Thyroid Peroxidase ABon - THYR PEROX AB < 9 Normal 0-34 [facility] Comment on above: Result Comment: Perf ormed at: CB - [facility] [address] [id number] [employer] Machine Operator: Manuel Sunshine PhD, Phone: [phone] Performed By: #### L [id number] #### [facility] [address] [place], [place], [id number] Vitamin D,25 Hydroxyon 03-30 Vitamin D 25-OH 32.9 ng/mL Normal [facility] Comment on above: Order Comment: Order Date: 03/29/24 Order Info: 06301-3 - VITD25 Result Comment: Viridiana min D 25(OH) Status Range Deficiency <20 ng/mL (50nmol/L) Insufficiency 20 - 30 ng/mL (50 - 75 nmol/L) Sufficiency 30 - 100 ng/mL (75 - 250 nmol/L) Toxicity >100 ng/mL (>250 nmol/L) Performed By: #### L 100.0500, L506.1000, L503.6150, L500.2500 #### [facility] [address] [place], [place], [id number] Basic Metabolic Profile (BMP )on 03-29-2024 BUN/CRE 23.8 RATIO High 10-20 [facility] Comment on above: Order Comment: Order Date: 03/29/24 Order Info: 0667-1 - BMP Order Info: 3051-0 - T3F Order Info: 3016-3 - TSH Order Info: 2497-07 - FE Order Info: 7 - T4F Performed By: #### L 100.0500, L506.1000, L503.6150, L500.2500 #### [facility] [address] [place], [address] CA,Total 9.7 mg/dL Normal 8.5-10.1 [facility] Comment on above: Order Comment: Order Date: 03/29/24 Order Info: 666-04 - BMP Order Info: 3051-0 - T3F Order Info: 6-3 - TSH Order Info: 2497-07 - FE Order Info: 7 - T4F Performed By: #### L 100.0500, L506.1000, L503.6150, L500.2500 #### [facility] [address] [place], [address] Chloride [Moles/Vol] 106 mmol/L Normal 98-107 [facility] Comment on above: Order Comment: Order Date: 03/29/24 Order Info: 666-04 - BMP Order Info: 3051-0 - T3F Order Info: 3016-3 - TSH Order Info: 2497-07 - FE Order Info: 7 - T4F Performed By: #### L 100.0500, L506.1000, L503.6150, L500.2500 #### [facility] [address] [place], [address] CO2 [Moles/Vol] 23.0 mmol/L Normal 21.0-32.0 [facility] Comment on above: Order Comment: Order Date: 03/29/24 Order Info: 666-04 - BMP Order Info: 3051-0 - T3F Order Info: 3016-3 - TSH Order Info: 2497-07 - FE Order Info: 3024-7 - T4F Performed By: #### L 100.0500, L506.1000, L503.6150, L500.2500 #### [facility] [address] [place], [address] Creatinine [Mass/Vol] 1.30 mg/dL Normal 0.70-1.30 [facility] Comment on above: Order Comment: Order Date: 03/29/24 Order Info: 666-04 - BMP Order Info: 3050-0 - T3F Order Info: 3 - TSH Order Info: 2494 - FE Order Info: 7 - T4F Result Comment: The validity of the calculated GFR GFRAA in patients over 70 years has not been determined. Clinical correlation is essential. Performed By: #### L 100.0500, L506.1000, L503.6150, L500.2500 #### [facility] [address] [place], [address] EST GFR - AA 69 mL/min Normal >60 [facility] Comment on above: Order Comment: Order Date: 03/29/24 Order Info: 666-04 - BMP Order Info: 0 - T3F Order Info: 3015-06 - TSH Order Info: 2497-07 - FE Order Info: 3023-10 - T4F Result Comment: Afri can [place] GFR Calc Performed By: #### L 100.0500, L506.1000, L503.6150, L500.2500 #### [facility] [address] [place], [address] GAP 7 Normal 5-15 [facility] Comment on above: Order Comment: Order Date: 03/29/24 Order Info: 666-04 - BMP Order Info: 0 - T3F Order Info: 3 - TSH Order Info: 24911-13 - FE Order Info: 7 - T4F Performed By: #### L 100.0500, L506.1000, L503.6150, L500.2500 #### [facility] [address] [place], [address] GFR/1.73 sq M.predicted among non-blacks MDRD (S/P/Bld) [Vol rate/Area] 57 mL/min/{1.73_m2} Low >60 [facility] Comment on above: Order Comment: Order Date: 03/29/24 Order Info: 666-04 - BMP Order Info: 0 - T3F Order Info: 3 - TSH Order Info: 2497-07 Order Info: 3023-10 - T4F Result Comment: Non- GFR Calc Performed By: #### L 100.0500, L506.1000, L503.6150, L500.2500 #### [facility] [address] [place], [address] Glucose [Mass/Vol] 106 mg/dL Normal 74-106 [facility] Comment on above: Order Comment: Order Date: 03/29/24 Order Info: 666-04 - BMP Order Info: 0 - T3F Order Info: 3015-06 - TSH Order Info: 2497-07 Order Info: 3023-10 - T4F Result Comment: Fast ing Glucose result from 100 to 125 mg/dL suggests IMPAIRED HOMEOSTASIS per A.D.A. criteria. Performed By: #### L 100.0500, L506.1000, L503.6150, L500.2500 #### [facility] [address] [place], [address] Potassium [Moles/Vol] 4.6 mmol/L Normal 3.5-5.1 [facility] Comment on above: Order Comment: Order Date: 03/29/24 Order Info: 666-04 - BMP Order Info: 0 - T3F Order Info: 3 - TSH Order Info: 2497-07 Order Info: 3023-10 - T4F Performed By: #### L 100.0500, L506.1000, L503.6150, L500.2500 #### [facility] [address] [place], [address] Sodium [Moles/Vol] 136 mmol/L Normal 136-145 [facility] Comment on above: Order Comment: Order Date: 03/29/24 Order Info: 666-04 - BMP Order Info: 0 - T3F Order Info: 3016-3 - TSH Order Info: 2497-07 Order Info: 3023-7 - T4F Performed By: #### L 100.0500, L506.1000, L503.6150, L500.2500 #### [facility] [address] [place], [address] Urea nitrogen [Mass/Vol] 31 mg/dL High 10-27 [facility] Comment on above: Order Comment: Order Date: 03/29/24 Order Info: 0667-1 - BMP Order Info: 3051-0 - T3F Order Info: 3015-3 - TSH Order Info: 2497-07 Order Info: 7 - T4F Performed By: #### L 100.0500, L506.1000, L503.6150, L500.2500 #### [facility] [address] [place], [address] CBC-Complete Blood Cnt No Di ffon 03-29-2024 Erythrocyte distribution width (RBC) [Ratio] 14.6 % Normal 11.6-14.6 [facility] Comment on above: Order Comment: Order Date: 03/29/24 Order Info: 48981-7 - CBC Performed By: #### L 100.0500, L506.1000, L503.6150, L500.2500 #### [facility] [address] [place], [address] Hematocrit (Bld) [Volume fraction] 51.2 % Normal 40-54 [facility] Comment on above: Order Comment: Order Date: 03/29/24 Order Info: 64809-4 - CBC Performed By: #### L 100.0500, L506.1000, L503.6150, L500.2500 #### [facility] [address] [place], [address] Hemoglobin (Bld) [Mass/Vol] 16.9 g/dL High 13.0-16.5 [facility] Comment on above: Order Comment: Order Date: 03/29/24 Order Info: 66670-0 - CBC Performed By: #### L 100.0500, L506.1000, L503.6150, L500.2500 #### [facility] [address] [place], [address] MCH (RBC) [Entitic mass] 31.5 pg Normal 27.0-32.0 [facility] Comment on above: Order Comment: Order Date: 03/29/24 Order Info: 32207-6 - CBC Performed By: #### L 100.0500, L506.1000, L503.6150, L500.2500 #### [facility] [address] [place], [address] MCHC (RBC) [Mass/Vol] 33.0 g/dL Normal 32-36 [facility] Comment on above: Order Comment: Order Date: 03/29/24 Order Info: 77223-7 - CBC Performed By: #### L 100.0500, L506.1000, L503.6150, L500.2500 #### [facility] [address] [place], [address] MCV (RBC) [Entitic vol] 95.5 fL High 80-94 [facility] Comment on above: Order Comment: Order Date: 03/29/24 Order Info: 39559-0 - CBC Performed By: #### L 100.0500, L506.1000, L503.6150, L500.2500 #### [facility] [address] [place], [address] Platelet mean volume (Bld) [Entitic vol] 9.8 fL Normal 6.2-12.0 [facility] Comment on above: Order Comment: Order Date: 03/29/24 Order Info: 28862-0 - CBC Performed By: #### L 100.0500, L506.1000, L503.6150, L500.2500 #### [facility] [address] [place], [address] Platelets (Bld) [#/Vol] 179 10*3/uL Normal 150-450 [facility] Comment on above: Order Comment: Order Date: 03/29/24 Order Info: [id number] - CBC Performed By: #### L 100.0500, L506.1000, L503.6150, L500.2500 #### [facility] [address] [place], [address] RBC (Bld) [#/Vol] 5.36 10*6/uL Normal 4.6-6.2 [facility] Comment on above: Order Comment: Order Date: 03/29/24 Order Info: [id number] - CBC Performed By: #### L 100.0500, L506.1000, L503.6150, L500.2500 #### [facility] [address] [place], [address] RDW SD 52.0 fl High 35.1-43.9 [facility] Comment on above: Order Comment: Order Date: 03/29/24 Order Info: 23216-5 - CBC Performed By: #### L 100.0500, L506.1000, L503.6150, L500.2500 #### [facility] [address] [place], [address] WBC (Bld) [#/Vol] 7.5 10*3/uL Normal 4.4-11.0 [facility] Comment on above: Order Comment: Order Date: 03/29/24 Order Info: 18335-1 - CBC Performed By: #### L 100.0500, L506.1000, L503.6150, L500.2500 #### [facility] [address] [place], [address] Free T3on 03-29-2024 Free T3 [Mass/Vol] 2.7 pg/mL Normal 2.18-3.98 [facility] Comment on above: Order Comment: Order Date: 03/29/24 Order Info: 0667-1 - BMP Order Info: 3051-0 - T3F Order Info: 3016-3 - TSH Order Info: 24911-13 - FE Order Info: 3024-7 - T4F Performed By: #### L 506.0400, L501.91778, L501.9587 #### [facility] [address] [place], [place], [address] Ironon 03-29-2024 Iron [Mass/Vol] 68 ug/dL Normal 65-175 [facility] Comment on above: Order Comment: Order Date: 03/29/24 Order Info: 666-04 - BMP Order Info: 3051-0 - T3F Order Info: 3016-3 - TSH Order Info: 24911-13 - FE Order Info: 30247 - T4F Performed By: #### L 100.0500, L506.1000, L503.6150, L500.2500 #### [facility] [address] [place], [place], [address] T4 Free Directon 03-29-2024 T4 FREE DIRECT 0.96 ng/dL Normal 0.76-1.46 [facility] Comment on above: Order Comment: Order Date: 03/29/24 Order Info: 666-04 - BMP Order Info: 3051-0 - T3F Order Info: 3016-3 - TSH Order Info: 2497-07 - FE Order Info: 3024-7 - T4F Performed By: #### L 506.0400, L501.83805, L501.9520 #### [facility] [address] [place], [place], [address] Thyroid Stim Hormone (TSH)on 03-29-2024 TSH 2.810 uIU/mL Normal 0.358-3.740 [facility] Comment on above: Order Comment: Order Date: 03/29/24 Order Info: 666-04 - BMP Order Info: 3051-0 - T3F Order Info: 3016-3 - TSH Order Info: 2494 - FE Order Info: 3024-7 - T4F Performed By: #### L 506.0400, L501.89977, L501.9520 #### [facility] [address] [place], [address] 36on 03-22-2024 36 Talked with patient and waiting for cardiac clearance. Patient verbalized understanding Normal [facility] 36 Pt called today and is asking when is he going to get scheduled for surgery. Normal [facility] 36on 02-08-2024 36 Pt returned call regarding Test results. Relayed the below message pt verbalized understanding. Normal [facility] 36 Attempted to call patient with results of recent blood work, requested return call. Overall everything looks pretty good, however his prealbumin is low which is a marker for protein. I reviewed with Dr. Cardenas who recommends 3 months of 1-2 protein drinks daily to help build up his prealbumin, which is a marker for delayed healing and complication (possibly contributing to his recent recurrence). I will set a reminder to reach out in 3 months for repeat blood work and can determine hernia repair at that time. Please relay message if he returns call, thanks. Normal [facility] CBC panel Auto (Bld)on 02-06 Erythrocyte distribution width (RBC) [Ratio] 13.4 % 11.0 - 15.0 % [facility] Hematocrit (Bld) [Volume fraction] 49.9 % 38.5 - 50.0 % [facility] Hemoglobin (Bld) [Mass/Vol] 16.5 g/dL 13.2 - 17.1 g/dL [facility] MCH (RBC) [Entitic mass] 31.1 pg 27.0 - 33.0 pg [facility] MCHC (RBC) [Mass/Vol] 33.1 g/dL 32.0 - 36.0 g/dL [facility] Comment on above: For adults, a slight decrease in the calculated MCHC value (in the range of 30 to 32 g/dL) is most likely not clinically significant; however, it should be interpreted with caution in correlation with other red cell parameters and the patient's clinical condition. MCV (RBC) [Entitic vol] 94 fL 80.0 - 100.0 fL [facility] Platelet mean volume (Bld) [Entitic vol] 9.6 fL 7.5 - 12.5 fL [facility] Platelets (Bld) [#/Vol] 167 10*3/uL [facility] RBC (Bld) [#/Vol] 5.31 10*6/uL [facility] WBC (Bld) [#/Vol] 6.3 10*3/uL [facility] Comprehensive metabolic 1998 panelon 02-07-2024 Albumin [Mass/Vol] 4.3 g/dL 3.6 - 5.1 g/dL [facility] Albumin/Globulin [Mass ratio] 1.6 {ratio} [facility] ALP [Catalytic activity/Vol] 127 U/L 35 - 144 U/L [facility] ALT [Catalytic activity/Vol] 24 U/L 9 - 46 U/L [facility] AST [Catalytic activity/Vol] 24 U/L 10 - 35 U/L [facility] Bilirubin [Mass/Vol] 0.8 mg/dL 0.2 - 1 .2 mg/dL [facility] Calcium [Mass/Vol] 9.6 mg/dL 8.6 - 10. 3 mg/dL [facility] Chloride [Moles/Vol] 106 mmol/L 98 - 11 0 mmol/L [facility] CO2 [Moles/Vol] 26 mmol/L 20 - 32 mmol/L [facility] Creatinine [Mass/Vol] 1.46 mg/dL High 0.70 - 1.28 mg/dL [facility] GFR/1.73 sq M.predicted among non-blacks MDRD (S/P/Bld) [Vol rate/Area] 50 mL/min/{1.73_m2} Low > OR = 60 mL/min/1.73m 2 [facility] Globulin (S) [Mass/Vol] 2.7 g/dL [facility] Glucose [Mass/Vol] 93 mg/dL 65 - 139 mg/dL [facility] Comment on above: Non-fasting reference interval Potassium [Moles/Vol] 4.6 mmol/L 3.5 - 5.3 mmol/L [facility] Protein [Mass/Vol] 7 g/dL 6.1 - 8.1 g/dL [facility] Sodium [Moles/Vol] 142 mmol/L 135 - 146 mmol/L [facility] Urea nitrogen [Mass/Vol] 23 mg/dL 7 - 25 mg/dL [facility] Urea nitrogen/Creatinine [Mass ratio] 16 mg/mg [facility] Hemoglobin A1con 02-07-2024 HbA1c (Bld) [Mass fraction] 6.1 % High NINF [facility] Comment on above: For someone without known diabetes, a hemoglobin A1c value between 5.7% and 6.4% is consistent with prediabetes and should be confirmed with a follow-up test. For someone with known diabetes, a value <7% indicates that their diabetes is well controlled. A1c targets should be individualized based on duration of diabetes, age, comorbid conditions, and other considerations. This assay result is consistent with an increased risk of diabetes. Currently, no consensus exists regarding use of hemoglobin A1c for diagnosis of diabetes for children. No Panel Informationon 02-06 Interpretation and review of laboratory results Abnormal [facility] Prealbuminon 02-07-2024 Prealbumin [Mass/Vol] 20 mg/dL Low 21 - 4 3 mg/dL [facility] TSHon 02-07-2024 TSH Qn 3.58 m[IU]/L [facility] Office Visiton 02-04-2024 Follow-up visit [id number] Almas Ellis 1950 M Date Provider Department Center 02/04/2024 [id number] CARDENAS [facility] None Family History Problem Relation Age of Onset Cancer Mother Cancer Father Family Status - Relation Status Age at Mother Father Level of Service:51204 CO OFFICE/OUTPATIENT NEW MODERATE MDM 45 MINUTES Reason for Visit and Comments: New Patient [542] - CLERICAL AND OFFICE SUPPORT WORKERS Dr Stern referral ventral hernia Normal [facility] Progress Noteon 02-04-2024 Progress Note CARDIOLOGY CLEARANCE SENT Normal [facility] Progress Note [facility] Advanced Laparoscopic Surgery Patient Name: Jacky Ellis Date: 02/04/24 HPI: Jacky Ellis is a 73 y.o. male who presents with large recurrent ventral hernia. He states that he underwent umbilical hernia repair with mesh with Dr. Stern in August 2022. At that time he was told that they had to remove part of his small intestine as well. Was doing fine until about 2 months ago when he suddenly experienced a rip throughout his abdominal wall as well as a bulge that is progressively increased in size and pain. Presented to the ER for intractable pain and referred back to Dr. Stern however was told that the hernia was too complex for Dr. Stern to repair so was referred to us for evaluation. States that the hernia is very painful and he has doubled up on his chronic pain medication that he normally takes for chronic back pain related to scoliosis. He normally takes 7.5 mg of [place] every 6-8 hours, but is currently taking this every 5 hours for pain control. Follows with Dr. Sargent. PMH also significant for DM, h/o CAD s/p CABG in 2020, afib s/p ablation - on Xarelto, follows with Dr. Modi. 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 Former smoker. Notes reviewed: - Dr. 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 PMHx: Past Medical History: Diagnosis Date Arthritis Back pain lower Heart attack (HCC) Hypertension Lobar pneumonia, unspecified organism (HCC) 12/04/2020 Scoliosis Stroke (HCC) patient denies h/o CVA PSHx: Past Surgical History: Procedure Laterality Date ABLATION FOR ATRIAL FIBRILLATION (HISTORICAL) CARDIAC SURGERY 2020 COLONOSCOPY DENTAL SURGERY HERNIA REPAIR Right 1958 RIH RT/LT HEART CATHETERS (HISTORICAL) TRIPLE BYPASS THREE VALUES SHOULDER SURGERY SMALL INTESTINE SURGERY 08/2022 SBR TONSILLECTOMY 1960 UMBILICAL HERNIA REPAIR 08/2022 [place] PFMHx: Family History Problem Relation Name Age of Onset Cancer Mother Cancer Father ALL: Allergies Allergen Reactions Dapagliflozin Other Penicillins Other SKIN PEELS OFF PALMS OF HANDS AND FEET, YEARS AGO hands and feet peeled and bled MEDS: Current Outpatient Medications Medication Sig Dispense Refill amiodarone (Pacerone) 200 MG tablet Take 400 mg by mouth daily. atorvastatin (Lipitor) 40 MG tablet Take 40 mg by mouth daily. bumetanide (Bumex) 1 MG tablet Take 1 mg by mouth daily. carvedilol (Coreg) 25 MG tablet Take 25 mg by mouth 2 times daily. Entresto 24-26 MG tablet Take 1 tablet by mouth 2 times daily. Farxiga 10 MG tablet Take 10 mg by mouth daily. HYDROcodone-acetaminoph en ([place]) 7.5-325 MG tablet Xarelto 15 MG tablet Take 15 mg by mouth with evening meal. No current facility-administered medications for this visit. SOCIAL Hx: Social History Socioeconomic History Marital status: Spouse name: Not on file Number of children: Not on file Years of education: Not on file Highest education level: Not on file Occupational History Not on file Tobacco Use Smoking status: Former Types: Cigarettes Smokeless tobacco: Never Substance and Sexual Activity Alcohol use: Yes Alcohol/week: 2.0 standard drinks of alcohol Types: 2 Shots of liquor per week Comment: OCC TWICE A MONTH Drug use: Never Sexual activity: Yes Partners: Female Other Topics Concern Not on file Social History Narrative Not on file Social Drivers of Health Financial Resource Strain: Not on file Food Insecurity: Not on file Transportation Needs: Not on file Physical Activity: Not on file Stress: Not on file Social Connections: Not on file Intimate Partner Violence: Not on file Housing Stability: Not on file ROS: Review of Systems All other systems reviewed and are negative. DIAGNOSTIC EVALUATION: as described above Physical Examination: BP 133/84 Pulse 73 Temp 36.1 ?C (97 ?F) (Temporal) Ht 6' 2 (1.88 m) Wt 250 lb (113 kg) BMI 32.10 kg/m? He stands Height: 6' 2 (188 cm) tall with a weight of Weight: 250 lb (113 kg), resulting in a BMI of Body mass index is 32.1 kg/m?. Physical Exam Vitals reviewed. Exam conducted with a cigarette lighter repairer present. Constitutional: Appearance: Normal appearance. He is not ill-appearing. HENT: Head: Normocephalic and atraumatic. Cardiovascular: Rate and Rhythm: Normal rate. Pulmonary: Effort: Pulmonary effort is normal. Breath sounds: No wheezing. Abdominal: Comments: Large incarcerated ventral hernia Skin: General: Skin is warm and dry. Capillary Refill: Capillary refill takes less than 2 seconds. Neurological: Mental Status: He is alert. Mental status is at baseline. Assessment/Plan Jacky was seen today for new patient. Diagnoses and all ord (more content not included)... Normal [facility] .Auto Diffon 12-21-2023 Basophil, Absolute 0.0 10 3/mcL Normal 0.0-0.2 [facility] Comment on above: Performed By: #### A DIFF, CMP, CBC, LIP, MDW, ANEU, GFR #### [place] [id number] Basophils/100 WBC (Bld) 0.5 % Normal 0.0-2.5 [facility] Comment on above: Performed By: #### A DIFF, CMP, CBC, LIP, MDW, ANEU, GFR #### [address] [address] Eosinophil, Absolute 0.2 10 3/mcL Normal 0.0-0.4 [facility] Comment on above: Performed By: #### A DIFF, CMP, CBC, LIP, MDW, ANEU, GFR #### [address] [address] Eosinophils/100 WBC (Bld) 3.1 % Normal 0.0-7.0 [facility] Comment on above: Performed By: #### A DIFF, CMP, CBC, LIP, MDW, ANEU, GFR #### [address] [address] Lymphocyte, Absolute 1.2 10 3/mcL Normal 0.8-3.9 [facility] Comment on above: Performed By: #### A DIFF, CMP, CBC, LIP, MDW, ANEU, GFR #### [address] [address] Lymphocytes/100 WBC (Bld) 23.0 % Normal 10.0-50.0 [facility] Comment on above: Performed By: #### A DIFF, CMP, CBC, LIP, MDW, ANEU, GFR #### [address] [address] Monocyte, Absolute 0.6 10 3/mcL Normal 0.2-1.0 [facility] Comment on above: Performed By: #### A DIFF, CMP, CBC, LIP, MDW, ANEU, GFR #### [address] [address] Monocytes/100 WBC (Bld) 10.8 % Normal 1.7-13.0 [facility] Comment on above: Performed By: #### A DIFF, CMP, CBC, LIP, MDW, ANEU, GFR #### [address] [address] Neutrophils/100 WBC (Bld) 62.6 % Normal 37.0-80.0 [facility] Comment on above: Performed By: #### A DIFF, CMP, CBC, LIP, MDW, ANEU, GFR #### [address] [address] .GFRon 12-21-2023 GFR 46 ml/min/1.73sqm Normal [facility] Comment on above: Result Comment: GFR Population mean for , Non- Americans Ages 20-29 = 116 mL/min/1.73 sq.m. Ages 30-39 = 107 mL/min/1.73 sq.m. Ages 40-49 = 99 mL/min/1.73 sq.m. Ages 50-59 = 93 mL/min/1.73 sq.m. Ages 60-69 = 85 mL/min/1.73 sq.m. Ages 70+ = 75 mL/min/1.73 sq.m. Chronic Kidney Disease: Less than 60 mL/min/1.73 square meters End Stage Renal Disease: Less than 15 mL/min/1.73 square meters Performed By: #### A DIFF, CMP, CBC, LIP, MDW, ANEU, GFR #### [address] [address] GFR Non- 38 ml/min/1.73sqm Normal [facility] Comment on above: Result Comment: GFR Population mean for , Non- Americans Ages 20-29 = 116 mL/min/1.73 sq.m. Ages 30-39 = 107 mL/min/1.73 sq.m. Ages 40-49 = 99 mL/min/1.73 sq.m. Ages 50-59 = 93 mL/min/1.73 sq.m. Ages 60-69 = 85 mL/min/1.73 sq.m. Ages 70+ = 75 mL/min/1.73 sq.m. Chronic Kidney Disease: Less than 60 mL/min/1.73 square meters End Stage Renal Disease: Less than 15 mL/min/1.73 square meters Performed By: #### A DIFF, CMP, CBC, LIP, MDW, ANEU, GFR #### [address] [address] .MDWon 12-21-2023 Monocyte Distribution Width 20.16 High 0.00-20.00 [facility] Comment on above: Result Comment: For adults in ED, MDW>20.0 may be associated with a higher risk of sepsis during the first 12hrs of hospital admission Performed By: #### A DIFF, CMP, CBC, LIP, MDW, ANEU, GFR #### [place] [address] .NEUABSon 12-21-2023 Neutrophil, Absolute 3.2 10 3/mcL Normal 2.9-6.2 [facility] Comment on above: Performed By: #### A DIFF, CMP, CBC, LIP, MDW, ANEU, GFR #### [place] [address] CBCon 12-21-2023 Erythrocyte distribution width (RBC) [Ratio] 15.4 % High 11.5-14.5 [facility] Comment on above: Performed By: #### A DIFF, CMP, CBC, LIP, MDW, ANEU, GFR #### [place] [address] Hematocrit (Bld) [Volume fraction] 45.3 % Normal 42.0-52.0 [facility] Comment on above: Performed By: #### A DIFF, CMP, CBC, LIP, MDW, ANEU, GFR #### [place] [address] Hgb 14.9 G/dL Normal 14.0-18.0 [facility] Comment on above: Performed By: #### A DIFF, CMP, CBC, LIP, MDW, ANEU, GFR #### [place] [address] MCH (RBC) [Entitic mass] 31.7 pg High 27.0-31.2 [facility] Comment on above: Performed By: #### A DIFF, CMP, CBC, LIP, MDW, ANEU, GFR #### [address] [address] MCHC 32.9 G/dL Normal 31.8-35.4 [facility] Comment on above: Performed By: #### A DIFF, CMP, CBC, LIP, MDW, ANEU, GFR #### [address] [address] MCV (RBC) [Entitic vol] 96.4 fL High 80.0-94.0 [facility] Comment on above: Performed By: #### A DIFF, CMP, CBC, LIP, MDW, ANEU, GFR #### [address] [address] Platelet 136 10 3/mcL Normal 130-400 [facility] Comment on above: Performed By: #### A DIFF, CMP, CBC, LIP, MDW, ANEU, GFR #### [address] [address] Platelet mean volume (Bld) [Entitic vol] 7.1 fL Low 7.4-10.4 [facility] Comment on above: Performed By: #### A DIFF, CMP, CBC, LIP, MDW, ANEU, GFR #### [address] [address] RBC 4.70 10 6/mcL Normal 4.04-6.13 [facility] Comment on above: Performed By: #### A DIFF, CMP, CBC, LIP, MDW, ANEU, GFR #### [address] [address] WBC 5.2 10 3/mcL Normal 4.6-10.8 [facility] Comment on above: Performed By: #### A DIFF, CMP, CBC, LIP, MDW, ANEU, GFR #### [address] [address] CMPon 12-21-2023 Albumin Level 3.5 G/dL Normal 3.4-4.8 [facility] Comment on above: Performed By: #### A DIFF, CMP, CBC, LIP, MDW, ANEU, GFR #### [address] [address] Albumin/Globulin [Mass ratio] 1.2 {ratio} Normal 1.1-2.5 [facility] Comment on above: Performed By: #### A DIFF, CMP, CBC, LIP, MDW, ANEU, GFR #### [address] [address] ALP [Catalytic activity/Vol] 138 U/L High 40-135 [facility] Comment on above: Performed By: #### A DIFF, CMP, CBC, LIP, MDW, ANEU, GFR #### [address] [address] ALT [Catalytic activity/Vol] 32 U/L Normal 16-63 [facility] Comment on above: Performed By: #### A DIFF, CMP, CBC, LIP, MDW, ANEU, GFR #### [place] [id number] AST [Catalytic activity/Vol] 22 U/L Normal 10-40 [facility] Comment on above: Performed By: #### A DIFF, CMP, CBC, LIP, MDW, ANEU, GFR #### [address] [address] Bili Total 0.6 mg/dL Normal 0.2-1.0 [facility] Comment on above: Result Comment: Use of this assay is not recommended for patients undergoing treatment with eltrombopag due to the potential for falsely elevated results. Performed By: #### A DIFF, CMP, CBC, LIP, MDW, ANEU, GFR #### [address] [address] BUN/Creatinine Ratio 14 ratio Normal 7-27 [facility] Comment on above: Performed By: #### A DIFF, CMP, CBC, LIP, MDW, ANEU, GFR #### [address] [address] Calcium [Mass/Vol] 8.8 mg/dL Normal 8.4-10.2 [facility] Comment on above: Performed By: #### A DIFF, CMP, CBC, LIP, MDW, ANEU, GFR #### [address] [address] Chloride [Moles/Vol] 103 mmol/L Normal 98-107 [facility] Comment on above: Performed By: #### A DIFF, CMP, CBC, LIP, MDW, ANEU, GFR #### [address] [address] CO2 [Moles/Vol] 30 mmol/L Normal 23-31 [facility] Comment on above: Performed By: #### A DIFF, CMP, CBC, LIP, MDW, ANEU, GFR #### [address] [address] Creatinine [Mass/Vol] 1.77 mg/dL High 0.70-1.[address] [facility] Comment on above: Result Comment: Test ing performed on Siemens Dimension EXL analyzer using a modified kinetic Kristen technique. Performed By: #### A DIFF, CMP, CBC, LIP, MDW, ANEU, GFR #### [address] [address] Electrolyte Balance 5.0 mEq/L Normal 4.0-15.0 [facility] Comment on above: Performed By: #### A DIFF, CMP, CBC, LIP, MDW, ANEU, GFR #### [address] [address] Globulin 2.9 G/dL Normal [facility] Comment on above: Performed By: #### A DIFF, CMP, CBC, LIP, MDW, ANEU, GFR #### [address] [address] Glucose [Mass/Vol] 108 mg/dL Normal 83-110 [facility] Comment on above: Performed By: #### A DIFF, CMP, CBC, LIP, MDW, ANEU, GFR #### [address] [address] Potassium [Moles/Vol] 4.3 mmol/L Normal 3.5-5.[address] [facility] Comment on above: Performed By: #### A DIFF, CMP, CBC, LIP, MDW, ANEU, GFR #### [facility] [address] [place], [place] [address] Sodium [Moles/Vol] 138 mmol/L Normal 136-145 [facility] Comment on above: Performed By: #### A DIFF, CMP, CBC, LIP, MDW, ANEU, GFR #### [place] [id number] [place], [place] [address] Total Protein 6.4 G/dL Normal 6.4-8.2 [facility] Comment on above: Performed By: #### A DIFF, CMP, CBC, LIP, MDW, ANEU, GFR #### [place] [id number] [place], [place] [address] Urea nitrogen [Mass/Vol] 25 mg/dL High 7-18 [facility] Comment on above: Performed By: #### A DIFF, CMP, CBC, LIP, MDW, ANEU, GFR #### [place] [id number] [place], [place] [address] CT ABD/PELVIS W/ IV CONTRAST ONLYon 12-21-2023 CT ABD/PELVIS W/ IV CONTRAST ONLY ORIGINAL EXAMINATION: CT OF THE ABDOMEN AND PELVIS WITH CONTRAST12/21/2023 4:58 pm TECHNIQUE: CT of the abdomen and pelvis was performed with the administration of intravenous contrast. Multiplanar reformatted images are provided for review. Automated exposure control, iterative reconstruction, and/or weight based adjustment of the mA/kV was utilized to reduce the radiation dose to as low as reasonably achievable. COMPARISON: CT abdomen pelvis 08/16/2022 and 08/14/2022. HISTORY: ORDERING SYSTEM PROVIDED HISTORY: Reason for Exam: Pain. Lower abdominal pain for about 1 week. FINDINGS: The included lung bases are clear. There is no visible pleural or pericardial effusion. Mild cardiomegaly. Aortic valve and coronary artery atherosclerotic calcifications are visualized. Nodular contour of the liver. There is mild periportal edema, findings appear grossly similar to previous exam. No focal hepatic lesion identified. The gallbladder is within normal limits. The spleen, pancreas, and adrenal glands are within normal limits. Symmetric nephrograms. 3.5 cm right renal cyst. No hydronephrosis. The ureters are normal in course and caliber. The urinary bladder is under distended, limiting detailed evaluation. The stomach is within normal limits. There is a ventral abdominal wall defect measuring approximately 9.4 cm at its neck containing herniated portions of small bowel without evidence of complication. Surgical changes are seen within small bowel in the right lower quadrant. Unremarkable appearing bowel anastomosis. The large bowel demonstrate no obstruction. The appendix is normal. Colonic diverticulosis without acute diverticulitis. No free intraperitoneal fluid or gas is identified. Suprarenal fusiform abdominal aortic aneurysm measures 3.1 cm in diameter. Adenopathy at the virgilio hepatis measures proximally 1.3 cm from prior 1.6 cm. Partially visualized median sternotomy wires. Spinal stimulator device noted. Bilateral pars defects at L5 results in grade 1 anterolisthesis of L5 on S1. Varying degrees of multilevel degenerative changes are present throughout the spine. There is no acute fracture or aggressive osseous lesion. No acute soft tissue abnormality. IMPRESSION: No acute abdominopelvic process. Cirrhotic liver morphology. Large ventral abdominal wall defect contains portions of herniated small bowel without evidence of complication. Colonic diverticulosis without acute diverticulitis. Persistent but decreased adenopathy at the virgilio hepatis. Fusiform suprarenal abdominal aortic aneurysm measures up to 3.1 cm. Please see recommendations below. I have personally reviewed the images of this examination and agree with the resident's findings and interpretation. RECOMMENDATIONS: For management of fusiform AAA: 3.0-3.4 cm AAA, recommend follow-up every 3 years. Note: Recommend Vascular consultation if a fusiform AAA enlarges by >0.5 cm in 6 months or >1 cm in 1 year or for a saccular AAA of any size. References: J Am Eugenio Radiol 2013; 10(10):789-794; J Vasc Surg. 2018; 67:2-77 Interpreted by: Sam Olmstead Preliminary Report By: Ratna Noriega Electronically signed By Sam Olmstead Dictated Date: 12/21/2023 5:03:49 PM Prelim Date: 12/21/2023 5:15:35 PM Sign Date: 12/21/2023 5:52:37 PM Ordering Provider: CUCA Cooper [facility]ORYOrdered By: SYSTEM SYSTEM on 12-21-2023 Albumin BCP dye [Mass/Vol] 3.5 G/dL Normal 3.4 - 4.8 G/dL AO ADM SS Albumin/Globulin [Mass ratio] 1.2 {ratio} Normal 1.1 - 2.5 ratio AO ADM SS ALP [Catalytic activity/Vol] 138 U/L High 40 - 135 U/L AO ADM SS ALT With P-5'-P [Catalytic activity/Vol] 32 U/L Normal 16 - 63 U/L AO ADM SS AST With P-5'-P [Catalytic activity/Vol] 22 U/L Normal 10 - 40 U/L AO ADM SS Basophils (Bld) [#/Vol] 0.0 103/mcL Normal 0.0 - 0.2 10^3/mcL AO Workflow SS Basophils/100 WBC (Bld) 0.5 % Normal 0.0 - 2.5 % AO Workflow SS Bilirubin [Mass/Vol] 0.6 mg/dL Normal 0.2 - 1 .0 mg/dL AO ADM SS Comment on above: Interpretive Data: U se of this assay is not recommended for patients undergoing treatment with eltrombopag due to the potential for falsely elevated results. Calcium [Mass/Vol] 8.8 mg/dL Normal 8.4 - 10. 2 mg/dL AO ADM SS Chloride [Moles/Vol] 103 mmol/L Normal 98 - 10 7 mmol/L AO ADM SS CO2 [Moles/Vol] 30 mmol/L Normal 23 - 31 mmol/L AO ADM SS Creatinine [Mass/Vol] 1.77 mg/dL High 0.70 - 1.30 mg/dL AO ADM SS Comment on above: Interpretive Data: T esting performed on Siemens Dimension EXL analyzer using a modified kinetic Kristen technique. Electrolyte Balance 5.0 mEq/L Normal 4.0 - 15 .0 mEq/L AO ADM SS Eosinophil, Absolute 0.2 103/mcL Normal 0.0 - 0 .4 10^3/mcL AO Workflow SS Eosinophils/100 WBC (Bld) 3.1 % Normal 0.0 - 7.0 % AO Workflow SS Erythrocyte distribution width (RBC) [Ratio] 15.4 % High 11.5 - 14.5 % AO Workflow SS GFR/1.73 sq M.predicted among blacks MDRD (S/P/Bld) [Vol rate/Area] 46 ml/min/1.73sqm Invalid Interpretation Code AO Chemistry S Comment on above: Interpretive Data: GFR Population mean for , Non- Americans Ages 20-29 = 116 mL/min/1.73 sq.m. Ages 30-39 = 107 mL/min/1.73 sq.m. Ages 40-49 = 99 mL/min/1.73 sq.m. Ages 50-59 = 93 mL/min/1.73 sq.m. Ages 60-69 = 85 mL/min/1.73 sq.m. Ages 70+ = 75 mL/min/1.73 sq.m. Chronic Kidney Disease: Less than 60 mL/min/1.73 square meters End Stage Renal Disease: Less than 15 mL/min/1.73 square meters GFR/1.73 sq M.predicted among non-blacks MDRD (S/P/Bld) [Vol rate/Area] 38 ml/min/1.73sqm Invalid Interpretation Code AO Chemistry S Comment on above: Interpretive Data: GFR Population mean for , Non- Americans Ages 20-29 = 116 mL/min/1.73 sq.m. Ages 30-39 = 107 mL/min/1.73 sq.m. Ages 40-49 = 99 mL/min/1.73 sq.m. Ages 50-59 = 93 mL/min/1.73 sq.m. Ages 60-69 = 85 mL/min/1.73 sq.m. Ages 70+ = 75 mL/min/1.73 sq.m. Chronic Kidney Disease: Less than 60 mL/min/1.73 square meters End Stage Renal Disease: Less than 15 mL/min/1.73 square meters Globulin 2.9 G/dL Invalid Interpretation Code AO ADM SS Glucose [Mass/Vol] 108 mg/dL Normal 83 - 110 mg/dL AO ADM SS Hematocrit (Bld) [Volume fraction] 45.3 % Normal 42.0 - 52.0 % AO Workflow SS Hemoglobin (Bld) [Mass/Vol] 14.9 G/dL Normal 14.0 - 18.0 G/dL AO Workflow SS Lipase [Catalytic activity/Vol] 19 U/L Normal 16 - 77 U/L AO ADM SS Lymphocytes (Bld) [#/Vol] 1.2 103/mcL Normal 0.8 - 3.9 10^3/mcL AO Workflow SS Lymphocytes/100 WBC (Bld) 23.0 % Normal 10.0 - 50.0 % AO Workflow SS MCH (RBC) [Entitic mass] 31.7 pg High 27.0 - 31.2 pg AO Workflow SS MCHC 32.9 G/dL Normal 31.8 - 35.4 G/dL AO Workflow SS MCV (RBC) [Entitic vol] 96.4 fL High 80.0 - 94.0 fL AO Workflow SS Monocyte distribution width Auto (Bld) [Entitic vol] 20.16 1 High 0.00 - 20.00 AO Workflow SS Comment on above: Result Comment: For adults in ED, MDW>20.0 may be associated with a higher risk of sepsis during the first 12hrs of hospital admission Monocytes (Bld) [#/Vol] 0.6 103/mcL Normal 0.2 - 1.0 10^3/mcL AO Workflow SS Monocytes/100 WBC (Bld) 10.8 % Normal 1.7 - 13.0 % AO Workflow SS Neutrophils (Bld) [#/Vol] 3.2 103/mcL Normal 2.9 - 6.2 10^3/mcL AO Workflow SS Neutrophils/100 WBC (Bld) 62.6 % Normal 37.0 - 80.0 % AO Workflow SS Platelet mean volume (Bld) [Entitic vol] 7.1 fL Low 7.4 - 10.4 fL AO Workflow SS Platelets (Bld) [#/Vol] 136 103/mcL Normal 130 - 400 10^3/mcL AO Workflow SS Potassium [Moles/Vol] 4.3 mmol/L Normal 3.5 - 5.1 mmol/L AO ADM SS Protein [Mass/Vol] 6.4 G/dL Normal 6.4 - 8.2 G/dL AO ADM SS RBC (Bld) [#/Vol] 4.70 106/mcL Normal 4.04 - 6.1 3 10^6/mcL AO Workflow SS Sodium [Moles/Vol] 138 mmol/L Normal 136 - 145 mmol/L AO ADM SS Urea nitrogen [Mass/Vol] 25 mg/dL High 7 - 18 mg/dL AO ADM SS Urea nitrogen/Creatinine [Mass ratio] 14 ratio Normal 7 - 27 ratio AO ADM SS WBC (Bld) [#/Vol] 5.2 103/mcL Normal 4.6 - 10.8 10^3/mcL AO Workflow SS LIPon 12-21-2023 Lipase Level 19 U/L Normal 16-77 [facility] Comment on above: Performed By: #### A DIFF, CMP, CBC, LIP, MDW, ANEU, GFR #### [address] [address] .GFRon 10-05-2023 GFR 55 ml/min/1.73sqm Normal [facility] ([place]) Comment on above: Result Comment: GFR Population mean for , Non- Americans Ages 20-29 = 116 mL/min/1.73 sq.m. Ages 30-39 = 107 mL/min/1.73 sq.m. Ages 40-49 = 99 mL/min/1.73 sq.m. Ages 50-59 = 93 mL/min/1.73 sq.m. Ages 60-69 = 85 mL/min/1.73 sq.m. Ages 70+ = 75 mL/min/1.73 sq.m. Chronic Kidney Disease: Less than 60 mL/min/1.73 square meters End Stage Renal Disease: Less than 15 mL/min/1.73 square meters Performed By: #### T SH, CBC, GFR, FT4, PBNP, ANEU, MG, ADIFF, CMP #### [address] [address] #### T3 #### [address] [address] GFR Non- 45 ml/min/1.73sqm Normal [facility] ([place]) Comment on above: Result Comment: GFR Population mean for , Non- Americans Ages 20-29 = 116 mL/min/1.73 sq.m. Ages 30-39 = 107 mL/min/1.73 sq.m. Ages 40-49 = 99 mL/min/1.73 sq.m. Ages 50-59 = 93 mL/min/1.73 sq.m. Ages 60-69 = 85 mL/min/1.73 sq.m. Ages 70+ = 75 mL/min/1.73 sq.m. Chronic Kidney Disease: Less than 60 mL/min/1.73 square meters End Stage Renal Disease: Less than 15 mL/min/1.73 square meters Performed By: #### T SH, CBC, GFR, FT4, PBNP, ANEU, MG, ADIFF, CMP #### [address] [address] #### T3 #### [address] [address] BMPon 10-05-2023 BUN/Creatinine Ratio 24.5 ratio High 10.0-22.0 [facility] ([place]) Comment on above: Performed By: #### T SH, CBC, GFR, FT4, PBNP, ANEU, MG, ADIFF, CMP #### [address] [address] #### T3 #### [address] [address] Calcium [Mass/Vol] 9.0 mg/dL Normal 8.7-10.4 [facility] ([place]) Comment on above: Performed By: #### T SH, CBC, GFR, FT4, PBNP, ANEU, MG, ADIFF, CMP #### [place] [address] #### T3 #### [address] [address] Chloride [Moles/Vol] 107 mmol/L Normal 98-110 [facility] ([place]) Comment on above: Performed By: #### T SH, CBC, GFR, FT4, PBNP, ANEU, MG, ADIFF, CMP #### [place] [address] #### T3 #### [address] [address] CO2 [Moles/Vol] 23 mmol/L Normal 22-32 [facility] ([place]) Comment on above: Performed By: #### T SH, CBC, GFR, FT4, PBNP, ANEU, MG, ADIFF, CMP #### [place] [address] #### T3 #### [address] [address] Creatinine [Mass/Vol] 1.51 mg/dL High 0.60-1.40 [facility] ([place]) Comment on above: Performed By: #### T SH, CBC, GFR, FT4, PBNP, ANEU, MG, ADIFF, CMP #### [address] [address] #### T3 #### [address] [address] Electrolyte Balance 9.0 mEq/L Normal 4.0-15.0 [facility] ([place]) Comment on above: Performed By: #### T SH, CBC, GFR, FT4, PBNP, ANEU, MG, ADIFF, CMP #### [place] [address] #### T3 #### [address] [address] Glucose [Mass/Vol] 156 mg/dL High 82-115 [facility] ([place]) Comment on above: Performed By: #### T SH, CBC, GFR, FT4, PBNP, ANEU, MG, ADIFF, CMP #### [place] [address] #### T3 #### [address] [address] Potassium [Moles/Vol] 4.7 mmol/L Normal 3.5-5.0 [facility] ([place]) Comment on above: Performed By: #### T SH, CBC, GFR, FT4, PBNP, ANEU, MG, ADIFF, CMP #### [place] [address] #### T3 #### [address] [address] Sodium [Moles/Vol] 139 mmol/L Normal 136-145 [facility] ([place]) Comment on above: Performed By: #### T SH, CBC, GFR, FT4, PBNP, ANEU, MG, ADIFF, CMP #### [place] [address] #### T3 #### [address] [address] Urea nitrogen [Mass/Vol] 37.0 mg/dL High 8.0-22.0 [facility] ([place]) Comment on above: Performed By: #### T SH, CBC, GFR, FT4, PBNP, ANEU, MG, ADIFF, CMP #### [place] [address] [place], [place] [address] #### T3 #### [place] [address] LABORATORYOrdered By: SYSTEM SYSTEM on 10-05-2023 Calcium [Mass/Vol] 9.0 mg/dL Normal 8.7 - 10. 4 mg/dL AH ADM SS Chloride [Moles/Vol] 107 mmol/L Normal 98 - 11 0 mEq/L AH ADM SS CO2 [Moles/Vol] 23 mmol/L Normal 22 - 32 mEq/L AH ADM SS Creatinine [Mass/Vol] 1.51 mg/dL High 0.60 - 1.40 mg/dL AH ADM SS Electrolyte Balance 9.0 mEq/L Normal 4.0 - 15 .0 mEq/L AH ADM SS GFR/1.73 sq M.predicted among blacks MDRD (S/P/Bld) [Vol rate/Area] 55 ml/min/1.73sqm Invalid Interpretation Code [facility] Chemistry S Comment on above: Interpretive Data: GFR Population mean for , Non- Americans Ages 20-29 = 116 mL/min/1.73 sq.m. Ages 30-39 = 107 mL/min/1.73 sq.m. Ages 40-49 = 99 mL/min/1.73 sq.m. Ages 50-59 = 93 mL/min/1.73 sq.m. Ages 60-69 = 85 mL/min/1.73 sq.m. Ages 70+ = 75 mL/min/1.73 sq.m. Chronic Kidney Disease: Less than 60 mL/min/1.73 square meters End Stage Renal Disease: Less than 15 mL/min/1.73 square meters GFR/1.73 sq M.predicted among non-blacks MDRD (S/P/Bld) [Vol rate/Area] 45 ml/min/1.73sqm Invalid Interpretation Code [facility] Chemistry S Comment on above: Interpretive Data: GFR Population mean for , Non- Americans Ages 20-29 = 116 mL/min/1.73 sq.m. Ages 30-39 = 107 mL/min/1.73 sq.m. Ages 40-49 = 99 mL/min/1.73 sq.m. Ages 50-59 = 93 mL/min/1.73 sq.m. Ages 60-69 = 85 mL/min/1.73 sq.m. Ages 70+ = 75 mL/min/1.73 sq.m. Chronic Kidney Disease: Less than 60 mL/min/1.73 square meters End Stage Renal Disease: Less than 15 mL/min/1.73 square meters Glucose [Mass/Vol] 156 mg/dL High 82 - 115 mg/dL AH ADM SS Potassium [Moles/Vol] 4.7 mmol/L Normal 3.5 - 5.0 mEq/L AH ADM SS Sodium [Moles/Vol] 139 mmol/L Normal 136 - 145 mEq/L AH ADM SS Urea nitrogen [Mass/Vol] 37.0 mg/dL High 8.0 - 22.0 mg/dL ADM SS Urea nitrogen/Creatinine [Mass ratio] 24.5 ratio High 10.0 - 22.0 ratio AH ADM SS .Auto Diffon 10-04-2023 Basophil, Absolute 0.0 10 3/mcL Normal 0.0-0.3 [facility] ([place]) Comment on above: Performed By: #### T SH, CBC, GFR, FT4, PBNP, ANEU, MG, ADIFF, CMP #### [address] [address] #### T3 #### [address] [address] Basophils/100 WBC (Bld) 0.4 % Normal 0.0-2.5 [facility] ([place]) Comment on above: Performed By: #### T SH, CBC, GFR, FT4, PBNP, ANEU, MG, ADIFF, CMP #### [address] [address] #### T3 #### [address] [address] Eosinophil, Absolute 0.2 10 3/mcL Normal 0.0-0.7 [facility] [place] Comment on above: Performed By: #### T SH, CBC, GFR, FT4, PBNP, ANEU, MG, ADIFF, CMP #### [place] [address] #### T3 #### [address] [address] Eosinophils/100 WBC (Bld) 3.0 % Normal 0.0-6.0 [facility] ([place]) Comment on above: Performed By: #### T SH, CBC, GFR, FT4, PBNP, ANEU, MG, ADIFF, CMP #### [place] [address] #### T3 #### [address] [address] Lymphocyte, Absolute 1.0 10 3/mcL Normal 0.9-4.3 [facility] [place] Comment on above: Performed By: #### T SH, CBC, GFR, FT4, PBNP, ANEU, MG, ADIFF, CMP #### [place] [address] #### T3 #### [address] [address] Lymphocytes/100 WBC (Bld) 17.7 % Low 20.0-40.0 [facility] ([place]) Comment on above: Performed By: #### T SH, CBC, GFR, FT4, PBNP, ANEU, MG, ADIFF, CMP #### [place] [address] #### T3 #### [address] [address] Monocyte, Absolute 0.8 10 3/mcL Normal 0.1-1.4 [facility] ([place]) Comment on above: Performed By: #### T SH, CBC, GFR, FT4, PBNP, ANEU, MG, ADIFF, CMP #### [place] [address] #### T3 #### [address] [address] Monocytes/100 WBC (Bld) 13.6 % High 2.0-13.0 [facility] ([place]) Comment on above: Performed By: #### T SH, CBC, GFR, FT4, PBNP, ANEU, MG, ADIFF, CMP #### [address] [address] #### T3 #### [address] [address] Neutrophils/100 WBC (Bld) 65.3 % Normal 50.0-75.0 [facility] ([place]) Comment on above: Performed By: #### T SH, CBC, GFR, FT4, PBNP, ANEU, MG, ADIFF, CMP #### [address] [address] #### T3 #### [address] [address] .GFRon 10-04-2023 GFR Non- 44 ml/min/1.73sqm Normal [facility] ([place]) Comment on above: Result Comment: GFR Population mean for , Non- Americans Ages 20-29 = 116 mL/min/1.73 sq.m. Ages 30-39 = 107 mL/min/1.73 sq.m. Ages 40-49 = 99 mL/min/1.73 sq.m. Ages 50-59 = 93 mL/min/1.73 sq.m. Ages 60-69 = 85 mL/min/1.73 sq.m. Ages 70+ = 75 mL/min/1.73 sq.m. Chronic Kidney Disease: Less than 60 mL/min/1.73 square meters End Stage Renal Disease: Less than 15 mL/min/1.73 square meters Performed By: #### T SH, CBC, GFR, FT4, PBNP, ANEU, MG, ADIFF, CMP #### [address] [address] #### T3 #### [address] [address] GFR 53 ml/min/1.73sqm Normal [facility] ([place]) Comment on above: Result Comment: GFR Population mean for , Non- Americans Ages 20-29 = 116 mL/min/1.73 sq.m. Ages 30-39 = 107 mL/min/1.73 sq.m. Ages 40-49 = 99 mL/min/1.73 sq.m. Ages 50-59 = 93 mL/min/1.73 sq.m. Ages 60-69 = 85 mL/min/1.73 sq.m. Ages 70+ = 75 mL/min/1.73 sq.m. Chronic Kidney Disease: Less than 60 mL/min/1.73 square meters End Stage Renal Disease: Less than 15 mL/min/1.73 square meters Performed By: #### T SH, CBC, GFR, FT4, PBNP, ANEU, MG, ADIFF, CMP #### [address] [address] #### T3 #### [address] [address] .NEUABSon 10-04-2023 Neutrophil, Absolute 3.8 10 3/mcL Normal 2.3-8.1 [facility] [place] Comment on above: Performed By: #### T SH, CBC, GFR, FT4, PBNP, ANEU, MG, ADIFF, CMP #### [address] [address] #### T3 #### [address] [address] ABO/Rh (Gel)on 10-04-2023 ABO/Rh Interp Positive Invalid Interpretation Code [facility] ([place]) Comment on above: Performed By: #### T SH, CBC, GFR, FT4, PBNP, ANEU, MG, ADIFF, CMP #### [address] [address] #### T3 #### [address] [address] ABS (Gel)on 10-04-2023 ABSC Interp (Gel) Negative Normal [facility] ([place]) Comment on above: Performed By: #### T SH, CBC, GFR, FT4, PBNP, ANEU, MG, ADIFF, CMP #### [address] [address] #### T3 #### [address] [address] BMPon 10-04-2023 BUN/Creatinine Ratio 19.9 ratio Normal 10.0-22.0 [facility] ([place]) Comment on above: Performed By: #### T SH, CBC, GFR, FT4, PBNP, ANEU, MG, ADIFF, CMP #### [address] [address] #### T3 #### [address] [address] Calcium [Mass/Vol] 9.5 mg/dL Normal 8.7-10.4 [facility] ([place]) Comment on above: Performed By: #### T SH, CBC, GFR, FT4, PBNP, ANEU, MG, ADIFF, CMP #### [address] [address] #### T3 #### [place] [address] Chloride [Moles/Vol] 105 mmol/L Normal 98-110 [facility] ([place]) Comment on above: Performed By: #### T SH, CBC, GFR, FT4, PBNP, ANEU, MG, ADIFF, CMP #### [place] [address] #### T3 #### [place] [address] CO2 [Moles/Vol] 26 mmol/L Normal 22-32 [facility] ([place]) Comment on above: Performed By: #### T SH, CBC, GFR, FT4, PBNP, ANEU, MG, ADIFF, CMP #### [address] [address] #### T3 #### [address] [address] Creatinine [Mass/Vol] 1.56 mg/dL High 0.60-1.40 [facility] ([place]) Comment on above: Performed By: #### T SH, CBC, GFR, FT4, PBNP, ANEU, MG, ADIFF, CMP #### [address] [address] #### T3 #### [address] [address] Electrolyte Balance 9.0 mEq/L Normal 4.0-15.0 [facility] ([place]) Comment on above: Performed By: #### T SH, CBC, GFR, FT4, PBNP, ANEU, MG, ADIFF, CMP #### [address] [address] #### T3 #### [address] [address] Glucose [Mass/Vol] 96 mg/dL Normal 82-115 [facility] ([place]) Comment on above: Performed By: #### T SH, CBC, GFR, FT4, PBNP, ANEU, MG, ADIFF, CMP #### [address] [address] #### T3 #### [address] [address] Potassium [Moles/Vol] 4.4 mmol/L Normal 3.5-5.0 [facility] ([place]) Comment on above: Performed By: #### T SH, CBC, GFR, FT4, PBNP, ANEU, MG, ADIFF, CMP #### [address] [address] #### T3 #### [address] [address] Sodium [Moles/Vol] 140 mmol/L Normal 136-145 [facility] ([place]) Comment on above: Performed By: #### T SH, CBC, GFR, FT4, PBNP, ANEU, MG, ADIFF, CMP #### [place] [address] #### T3 #### [address] [address] Urea nitrogen [Mass/Vol] 31.0 mg/dL High 8.0-22.0 [facility] ([place]) Comment on above: Performed By: #### T SH, CBC, GFR, FT4, PBNP, ANEU, MG, ADIFF, CMP #### [address] [address] #### T3 #### [address] [address] CBCon 10-04-2023 Erythrocyte distribution width (RBC) [Ratio] 14.9 % Normal 11.5-15.5 [facility] ([place]) Comment on above: Performed By: #### T SH, CBC, GFR, FT4, PBNP, ANEU, MG, ADIFF, CMP #### [address] [address] #### T3 #### [address] [address] Hematocrit (Bld) [Volume fraction] 45.4 % Normal 40.0-52.0 [facility] ([place]) Comment on above: Performed By: #### T SH, CBC, GFR, FT4, PBNP, ANEU, MG, ADIFF, CMP #### [place] [address] #### T3 #### [place] [address] Hgb 15.4 G/dL Normal 13.0-17.5 [facility] ([place]) Comment on above: Performed By: #### T SH, CBC, GFR, FT4, PBNP, ANEU, MG, ADIFF, CMP #### [place] [address] #### T3 #### [place] [address] MCH (RBC) [Entitic mass] 31.5 pg Normal 27.0-33.0 [facility] ([place]) Comment on above: Performed By: #### T SH, CBC, GFR, FT4, PBNP, ANEU, MG, ADIFF, CMP #### [place] [address] #### T3 #### [place] [address] MCHC 33.8 G/dL Normal 32.0-36.0 [facility] ([place]) Comment on above: Performed By: #### T SH, CBC, GFR, FT4, PBNP, ANEU, MG, ADIFF, CMP #### [address] [address] #### T3 #### [address] [address] MCV (RBC) [Entitic vol] 93.1 fL Normal 81.0-100.0 [facility] ([place]) Comment on above: Performed By: #### T SH, CBC, GFR, FT4, PBNP, ANEU, MG, ADIFF, CMP #### [place] [address] #### T3 #### [place] [address] Platelet 161 10 3/mcL Normal 150-450 [facility] ([place]) Comment on above: Performed By: #### T SH, CBC, GFR, FT4, PBNP, ANEU, MG, ADIFF, CMP #### [place] [address] #### T3 #### [place] [address] Platelet mean volume (Bld) [Entitic vol] 7.3 fL Normal 6.4-10.5 [facility] ([place]) Comment on above: Performed By: #### T SH, CBC, GFR, FT4, PBNP, ANEU, MG, ADIFF, CMP #### [place] [address] #### T3 #### [address] [address] RBC 4.88 10 6/mcL Normal 4.50-6.00 [facility] ([place]) Comment on above: Performed By: #### T SH, CBC, GFR, FT4, PBNP, ANEU, MG, ADIFF, CMP #### [place] [address] #### T3 #### [place] [address] WBC 5.9 10 3/mcL Normal 4.5-10.8 [facility] ([place]) Comment on above: Performed By: #### T SH, CBC, GFR, FT4, PBNP, ANEU, MG, ADIFF, CMP #### [place] [address] [place], [place] [address] #### T3 #### [address] [address] LABORATORYOrdered By: Ronak Live on 10-04-2023 ABO and Rh group Nom (Bld) Blood group A Rh(D) positive Invalid Interpretation Code BB Auto SS Blood group antibody screen Ql Negative ABSC (10/04/23 6:27 AM) Normal BB Auto SS LABORATORYOrdered By: SYSTEM SYSTEM on 10-04-2023 Basophils (Bld) [#/Vol] 0.0 103/mcL Normal 0.0 - 0.3 10^3/mcL AH Workflow SS Basophils/100 WBC (Bld) 0.4 % Normal 0.0 - 2.5 % AH Workflow SS Calcium [Mass/Vol] 9.5 mg/dL Normal 8.7 - 10. 4 mg/dL ADM SS Chloride [Moles/Vol] 105 mmol/L Normal 98 - 11 0 mEq/L AH ADM SS CO2 [Moles/Vol] 26 mmol/L Normal 22 - 32 mEq/L ADM SS Creatinine [Mass/Vol] 1.56 mg/dL High 0.60 - 1.40 mg/dL ADM SS Electrolyte Balance 9.0 mEq/L Normal 4.0 - 15 .0 mEq/L ADM SS Eosinophils (Bld) [#/Vol] 0.2 103/mcL Normal 0.0 - 0.7 10^3/mcL AH Workflow SS Eosinophils/100 WBC (Bld) 3.0 % Normal 0.0 - 6.0 % AH Workflow SS Erythrocyte distribution width (RBC) [Ratio] 14.9 % Normal 11.5 - 15.5 % AH Workflow SS GFR/1.73 sq M.predicted among blacks MDRD (S/P/Bld) [Vol rate/Area] 53 ml/min/1.73sqm Invalid Interpretation Code Chemistry S Comment on above: Interpretive Data: GFR Population mean for , Non- Americans Ages 20-29 = 116 mL/min/1.73 sq.m. Ages 30-39 = 107 mL/min/1.73 sq.m. Ages 40-49 = 99 mL/min/1.73 sq.m. Ages 50-59 = 93 mL/min/1.73 sq.m. Ages 60-69 = 85 mL/min/1.73 sq.m. Ages 70+ = 75 mL/min/1.73 sq.m. Chronic Kidney Disease: Less than 60 mL/min/1.73 square meters End Stage Renal Disease: Less than 15 mL/min/1.73 square meters GFR/1.73 sq M.predicted among non-blacks MDRD (S/P/Bld) [Vol rate/Area] 44 ml/min/1.73sqm Invalid Interpretation Code Chemistry S Comment on above: Interpretive Data: GFR Population mean for , Non- Americans Ages 20-29 = 116 mL/min/1.73 sq.m. Ages 30-39 = 107 mL/min/1.73 sq.m. Ages 40-49 = 99 mL/min/1.73 sq.m. Ages 50-59 = 93 mL/min/1.73 sq.m. Ages 60-69 = 85 mL/min/1.73 sq.m. Ages 70+ = 75 mL/min/1.73 sq.m. Chronic Kidney Disease: Less than 60 mL/min/1.73 square meters End Stage Renal Disease: Less than 15 mL/min/1.73 square meters Glucose [Mass/Vol] 96 mg/dL Normal 82 - 115 mg/dL ADM SS Hematocrit (Bld) [Volume fraction] 45.4 % Normal 40.0 - 52.0 % Workflow SS Hemoglobin (Bld) [Mass/Vol] 15.4 G/dL Normal 13.0 - 17.5 G/dL Workflow SS Lymphocytes (Bld) [#/Vol] 1.0 103/mcL Normal 0.9 - 4.3 10^3/mcL Workflow SS Lymphocytes/100 WBC (Bld) 17.7 % Low 20.0 - 40.0 % Workflow SS MCH (RBC) [Entitic mass] 31.5 pg Normal 27.0 - 33.0 pg Workflow SS MCHC 33.8 G/dL Normal 32.0 - 36.0 G/dL AH Workflow SS MCV (RBC) [Entitic vol] 93.1 fL Normal 81.0 - 100.0 fL AH Workflow SS Monocytes (Bld) [#/Vol] 0.8 103/mcL Normal 0.1 - 1.4 10^3/mcL AH Workflow SS Monocytes/100 WBC (Bld) 13.6 % High 2.0 - 13.0 % AH Workflow SS Neutrophils (Bld) [#/Vol] 3.8 103/mcL Normal 2.3 - 8.1 10^3/mcL AH Workflow SS Neutrophils/100 WBC (Bld) 65.3 % Normal 50.0 - 75.0 % AH Workflow SS Platelet mean volume (Bld) [Entitic vol] 7.3 fL Normal 6.4 - 10.5 fL AH Workflow SS Platelets (Bld) [#/Vol] 161 103/mcL Normal 150 - 450 10^3/mcL AH Workflow SS Potassium [Moles/Vol] 4.4 mmol/L Normal 3.5 - 5.0 mEq/L ADM SS RBC (Bld) [#/Vol] 4.88 106/mcL Normal 4.50 - 6.0 0 10^6/mcL AH Workflow SS Sodium [Moles/Vol] 140 mmol/L Normal 136 - 145 mEq/L ADM SS Urea nitrogen [Mass/Vol] 31.0 mg/dL High 8.0 - 22.0 mg/dL ADM SS Urea nitrogen/Creatinine [Mass ratio] 19.9 ratio Normal 10.0 - 22.0 ratio AH ADM SS WBC (Bld) [#/Vol] 5.9 103/mcL Normal 4.5 - 10.8 10^3/mcL Workflow SS LABORATORYOrdered By: Heydi Ochoa on 10-04-2023 PT Coag (PPP) [Time] 28.4 s High 9.0 - 1 4.4 seconds [facility] Comment on above: Interpretive Data: E ffective 10/25/07, Protime results may be affected by some antibiotics (i.e. Ciprofloxacin, Azithromycin, Bactrim) which may potentiate the action of oral anticoagulants, with further increases in Protime/INR. PT International Ratio 2.4 ratio Invalid Interpretation Code [facility] SS Comment on above: Interpretive Data: Wendy mcintosh [employer] (CHEST, 1992, 102:[id number]) recommended therapeutic range for oral anticoagulant therapy is: LOW RISK: Prophylaxis of venous thrombosis INR: 2.0-3.0 Treatment of pulmonary embolism 2.0-3.0 Prevention of systemic embolism 2.0-3.0 HIGH RISK: Mechanical prosthetic valves 2.5-3.5 PROon 10-04-2023 INR Coag (PPP) [Relative time] 2.4 {INR} Normal [facility] ([place]) Comment on above: Result Comment: [employer] (CHEST, 1991, [id number]) recommended therapeutic range for oral anticoagulant therapy is: LOW RISK: Prophylaxis of venous thrombosis INR: 2.0-3.0 Treatment of pulmonary embolism 2.0-3.0 Prevention of systemic embolism 2.0-3.0 HIGH RISK: Mechanical prosthetic valves 2.5-3.5 Performed By: #### T SH, CBC, GFR, FT4, PBNP, ANEU, MG, ADIFF, CMP #### [place] [address] #### T3 #### [address] [address] PT Coag (PPP) [Time] 28.4 s High 9.0-14.4 [facility] ([place]) Comment on above: Result Comment: Effe ctive 10/25/07, Protime results may be affected by some antibiotics (i.e. Ciprofloxacin, Azithromycin, Bactrim) which may potentiate the action of oral anticoagulants, with further increases in Protime/INR. Performed By: #### T SH, CBC, GFR, FT4, PBNP, ANEU, MG, ADIFF, CMP #### [address] [address] #### T3 #### [address] [address] FT4on 09-21-2023 Free T4 [Mass/Vol] 2.40 ng/dL High 0.76-1.46 [facility] ([place]) Comment on above: Performed By: #### T SH, CBC, GFR, FT4, PBNP, ANEU, MG, ADIFF, CMP #### [address] [address] #### T3 #### [address] [address] T3on 09-21-2023 Total T3 176 ng/dL Normal 60-181 [facility] ([place]) Comment on above: Performed By: #### T SH, CBC, GFR, FT4, PBNP, ANEU, MG, ADIFF, CMP #### [address] [address] #### T3 #### [place] [address] TSHon 09-21-2023 TSH Qn m[IU]/L Low 0.36-3.74 [facility] ([place]) Comment on above: Performed By: #### T SH, CBC, GFR, FT4, PBNP, ANEU, MG, ADIFF, CMP #### [place] [address] #### T3 #### [place] [address] .Auto Diffon 09-17-2023 Basophil, Absolute 0.0 10 3/mcL Normal 0.0-0.2 [facility] ([place]) Comment on above: Performed By: #### T SH, CBC, GFR, FT4, PBNP, ANEU, MG, ADIFF, CMP #### [address] [address] #### T3 #### [place] [address] Basophils/100 WBC (Bld) 0.6 % Normal 0.0-2.5 [facility] ([place]) Comment on above: Performed By: #### T SH, CBC, GFR, FT4, PBNP, ANEU, MG, ADIFF, CMP #### [place] [address] #### T3 #### [place] [address] Eosinophil, Absolute 0.2 10 3/mcL Normal 0.0-0.4 [facility] [place] Comment on above: Performed By: #### T SH, CBC, GFR, FT4, PBNP, ANEU, MG, ADIFF, CMP #### [place] [address] #### T3 #### [address] [address] Eosinophils/100 WBC (Bld) 3.7 % Normal 0.0-7.0 [facility] ([place]) Comment on above: Performed By: #### T SH, CBC, GFR, FT4, PBNP, ANEU, MG, ADIFF, CMP #### [place] [address] #### T3 #### [address] [address] Lymphocyte, Absolute 1.1 10 3/mcL Normal 0.8-3.9 [facility] [place] Comment on above: Performed By: #### T SH, CBC, GFR, FT4, PBNP, ANEU, MG, ADIFF, CMP #### [place] [address] #### T3 #### [address] [address] Lymphocytes/100 WBC (Bld) 21.2 % Normal 10.0-50.0 [facility] ([place]) Comment on above: Performed By: #### T SH, CBC, GFR, FT4, PBNP, ANEU, MG, ADIFF, CMP #### [place] [address] #### T3 #### [address] [address] Monocyte, Absolute 0.8 10 3/mcL Normal 0.2-1.0 [facility] ([place]) Comment on above: Performed By: #### T SH, CBC, GFR, FT4, PBNP, ANEU, MG, ADIFF, CMP #### [place] [address] #### T3 #### [address] [address] Monocytes/100 WBC (Bld) 15.6 % High 1.7-13.0 [facility] ([place]) Comment on above: Performed By: #### T SH, CBC, GFR, FT4, PBNP, ANEU, MG, ADIFF, CMP #### [address] [address] #### T3 #### [address] [address] Neutrophils/100 WBC (Bld) 58.9 % Normal 37.0-80.0 [facility] ([place]) Comment on above: Performed By: #### T SH, CBC, GFR, FT4, PBNP, ANEU, MG, ADIFF, CMP #### [address] [address] #### T3 #### [address] [address] .GFRon 09-17-2023 GFR 51 ml/min/1.73sqm Normal [facility] ([place]) Comment on above: Result Comment: GFR Population mean for , Non- Americans Ages 20-29 = 116 mL/min/1.73 sq.m. Ages 30-39 = 107 mL/min/1.73 sq.m. Ages 40-49 = 99 mL/min/1.73 sq.m. Ages 50-59 = 93 mL/min/1.73 sq.m. Ages 60-69 = 85 mL/min/1.73 sq.m. Ages 70+ = 75 mL/min/1.73 sq.m. Chronic Kidney Disease: Less than 60 mL/min/1.73 square meters End Stage Renal Disease: Less than 15 mL/min/1.73 square meters Performed By: #### T SH, CBC, GFR, FT4, PBNP, ANEU, MG, ADIFF, CMP #### [address] [address] #### T3 #### [address] [address] GFR Non- 42 ml/min/1.73sqm Normal [facility] ([place]) Comment on above: Result Comment: GFR Population mean for , Non- Americans Ages 20-29 = 116 mL/min/1.73 sq.m. Ages 30-39 = 107 mL/min/1.73 sq.m. Ages 40-49 = 99 mL/min/1.73 sq.m. Ages 50-59 = 93 mL/min/1.73 sq.m. Ages 60-69 = 85 mL/min/1.73 sq.m. Ages 70+ = 75 mL/min/1.73 sq.m. Chronic Kidney Disease: Less than 60 mL/min/1.73 square meters End Stage Renal Disease: Less than 15 mL/min/1.73 square meters Performed By: #### T SH, CBC, GFR, FT4, PBNP, ANEU, MG, ADIFF, CMP #### [address] [address] #### T3 #### [address] [address] .NEUABSon 09-17-2023 Neutrophil, Absolute 3.0 10 3/mcL Normal 2.9-6.2 [facility] Comment on above: Performed By: #### T SH, CBC, GFR, FT4, PBNP, ANEU, MG, ADIFF, CMP #### [address] [address] #### T3 #### [address] [address] A1Con 09-17-2023 HbA1c (Bld) [Mass fraction] 5.8 % Normal 4.3-6.4 [facility] ([place]) Comment on above: Performed By: #### T SH, CBC, GFR, FT4, PBNP, ANEU, MG, ADIFF, CMP #### [address] [address] #### T3 #### [address] [address] CBCon 09-17-2023 Erythrocyte distribution width (RBC) [Ratio] 15.4 % High 11.5-14.5 [facility] ([place]) Comment on above: Performed By: #### T SH, CBC, GFR, FT4, PBNP, ANEU, MG, ADIFF, CMP #### [place] [address] #### T3 #### [place] [address] Hematocrit (Bld) [Volume fraction] 44.9 % Normal 42.0-52.0 [facility] ([place]) Comment on above: Performed By: #### T SH, CBC, GFR, FT4, PBNP, ANEU, MG, ADIFF, CMP #### [place] [address] #### T3 #### [place] [address] Hgb 14.9 G/dL Normal 14.0-18.0 [facility] ([place]) Comment on above: Performed By: #### T SH, CBC, GFR, FT4, PBNP, ANEU, MG, ADIFF, CMP #### [place] [address] #### T3 #### [place] [address] MCH (RBC) [Entitic mass] 31.2 pg Normal 27.0-31.2 [facility] ([place]) Comment on above: Performed By: #### T SH, CBC, GFR, FT4, PBNP, ANEU, MG, ADIFF, CMP #### [place] [address] #### T3 #### [place] [address] MCHC 33.2 G/dL Normal 31.8-35.4 [facility] ([place]) Comment on above: Performed By: #### T SH, CBC, GFR, FT4, PBNP, ANEU, MG, ADIFF, CMP #### [place] [address] #### T3 #### [place] [address] MCV (RBC) [Entitic vol] 93.9 fL Normal 80.0-94.0 [facility] ([place]) Comment on above: Performed By: #### T SH, CBC, GFR, FT4, PBNP, ANEU, MG, ADIFF, CMP #### [place] [address] #### T3 #### [place] [address] Platelet 161 10 3/mcL Normal 130-400 [facility] ([place]) Comment on above: Performed By: #### T SH, CBC, GFR, FT4, PBNP, ANEU, MG, ADIFF, CMP #### [place] [address] #### T3 #### [place] [address] Platelet mean volume (Bld) [Entitic vol] 7.2 fL Low 7.4-10.4 [facility] ([place]) Comment on above: Performed By: #### T SH, CBC, GFR, FT4, PBNP, ANEU, MG, ADIFF, CMP #### [place] [address] #### T3 #### [place] [address] RBC 4.78 10 6/mcL Normal 4.04-6.13 [facility] ([place]) Comment on above: Performed By: #### T SH, CBC, GFR, FT4, PBNP, ANEU, MG, ADIFF, CMP #### [place] [address] #### T3 #### [place] [address] WBC 5.1 10 3/mcL Normal 4.6-10.8 [facility] ([place]) Comment on above: Performed By: #### T SH, CBC, GFR, FT4, PBNP, ANEU, MG, ADIFF, CMP #### [place] [address] #### T3 #### [place] [address] CMPon 09-17-2023 Albumin Level 3.1 G/dL Low 3.4-4.8 [facility] ([place]) Comment on above: Performed By: #### T SH, CBC, GFR, FT4, PBNP, ANEU, MG, ADIFF, CMP #### [place] [address] #### T3 #### [address] [address] Albumin/Globulin [Mass ratio] 0.9 {ratio} Low 1.1-2.5 [facility] ([place]) Comment on above: Performed By: #### T SH, CBC, GFR, FT4, PBNP, ANEU, MG, ADIFF, CMP #### [place] [address] #### T3 #### [address] [address] ALP [Catalytic activity/Vol] 146 U/L High 40-135 [facility] ([place]) Comment on above: Performed By: #### T SH, CBC, GFR, FT4, PBNP, ANEU, MG, ADIFF, CMP #### [place] [address] #### T3 #### [address] [address] ALT [Catalytic activity/Vol] 29 U/L Normal 16-63 [facility] ([place]) Comment on above: Performed By: #### T SH, CBC, GFR, FT4, PBNP, ANEU, MG, ADIFF, CMP #### [place] [address] #### T3 #### [address] [address] AST [Catalytic activity/Vol] 21 U/L Normal 10-40 [facility] ([place]) Comment on above: Performed By: #### T SH, CBC, GFR, FT4, PBNP, ANEU, MG, ADIFF, CMP #### [place] [address] #### T3 #### [address] [address] Bili Total 0.9 mg/dL Normal 0.2-1.0 [facility] ([place]) Comment on above: Result Comment: Use of this assay is not recommended for patients undergoing treatment with eltrombopag due to the potential for falsely elevated results. Performed By: #### T SH, CBC, GFR, FT4, PBNP, ANEU, MG, ADIFF, CMP #### [address] [address] #### T3 #### [address] [address] BUN/Creatinine Ratio 16 ratio Normal 7-27 [facility] ([place]) Comment on above: Performed By: #### T SH, CBC, GFR, FT4, PBNP, ANEU, MG, ADIFF, CMP #### [place] [address] #### T3 #### [address] [address] Calcium [Mass/Vol] 9.2 mg/dL Normal 8.4-10.2 [facility] ([place]) Comment on above: Performed By: #### T SH, CBC, GFR, FT4, PBNP, ANEU, MG, ADIFF, CMP #### [place] [address] #### T3 #### [address] [address] Chloride [Moles/Vol] 106 mmol/L Normal 98-107 [facility] ([place]) Comment on above: Performed By: #### T SH, CBC, GFR, FT4, PBNP, ANEU, MG, ADIFF, CMP #### [address] [address] #### T3 #### [address] [address] CO2 [Moles/Vol] 28 mmol/L Normal 23-31 [facility] ([place]) Comment on above: Performed By: #### T SH, CBC, GFR, FT4, PBNP, ANEU, MG, ADIFF, CMP #### [place] [address] #### T3 #### [address] [address] Creatinine [Mass/Vol] 1.61 mg/dL High 0.70-1.30 [facility] ([place]) Comment on above: Performed By: #### T SH, CBC, GFR, FT4, PBNP, ANEU, MG, ADIFF, CMP #### [place] [address] #### T3 #### [place] [address] Electrolyte Balance 6.0 mEq/L Normal 4.0-15.0 [facility] ([place]) Comment on above: Performed By: #### T SH, CBC, GFR, FT4, PBNP, ANEU, MG, ADIFF, CMP #### [place] [address] #### T3 #### [place] [address] Globulin 3.5 G/dL Normal [facility] ([place]) Comment on above: Performed By: #### T SH, CBC, GFR, FT4, PBNP, ANEU, MG, ADIFF, CMP #### [place] [address] #### T3 #### [place] [address] Glucose [Mass/Vol] 108 mg/dL Normal 83-110 [facility] ([place]) Comment on above: Performed By: #### T SH, CBC, GFR, FT4, PBNP, ANEU, MG, ADIFF, CMP #### [place] [address] #### T3 #### [place] [id number] Potassium [Moles/Vol] 4.6 mmol/L Normal 3.5-5.1 [facility] ([place]) Comment on above: Performed By: #### T SH, CBC, GFR, FT4, PBNP, ANEU, MG, ADIFF, CMP #### [place] [address] #### T3 #### [address] [address] Sodium [Moles/Vol] 140 mmol/L Normal 136-145 [facility] ([place]) Comment on above: Performed By: #### T SH, CBC, GFR, FT4, PBNP, ANEU, MG, ADIFF, CMP #### [address] [address] #### T3 #### [address] [address] Total Protein 6.6 G/dL Normal 6.4-8.2 [facility] ([place]) Comment on above: Performed By: #### T SH, CBC, GFR, FT4, PBNP, ANEU, MG, ADIFF, CMP #### [address] [address] #### T3 #### [address] [address] Urea nitrogen [Mass/Vol] 26 mg/dL High 7-18 [facility] ([place]) Comment on above: Performed By: #### T SH, CBC, GFR, FT4, PBNP, ANEU, MG, ADIFF, CMP #### [address] [address] #### T3 #### [address] [address] FT4on 09-17-2023 Free T4 [Mass/Vol] 2.71 ng/dL High 0.76-1.46 [facility] ([place]) Comment on above: Performed By: #### T SH, CBC, GFR, FT4, PBNP, ANEU, MG, ADIFF, CMP #### [address] [address] #### T3 #### [address] [address] LABORATORYOrdered By: SYSTEM SYSTEM on 09-17-2023 Albumin BCP dye [Mass/Vol] 3.1 G/dL Low 3.4 - 4.8 G/dL AO ADM SS Albumin/Globulin [Mass ratio] 0.9 {ratio} Low 1.1 - 2.5 ratio AO ADM SS ALP [Catalytic activity/Vol] 146 U/L High 40 - 135 U/L AO ADM SS ALT With P-5'-P [Catalytic activity/Vol] 29 U/L Normal 16 - 63 U/L AO ADM SS AST With P-5'-P [Catalytic activity/Vol] 21 U/L Normal 10 - 40 U/L AO ADM SS Basophil, Absolute 0.0 103/mcL Normal 0.0 - 0.2 10^3/mcL AO Workflow SS Basophils/100 WBC (Bld) 0.6 % Normal 0.0 - 2.5 % AO Workflow SS Bilirubin [Mass/Vol] 0.9 mg/dL Normal 0.2 - 1 .0 mg/dL AO ADM SS Comment on above: Interpretive Data: U se of this assay is not recommended for patients undergoing treatment with eltrombopag due to the potential for falsely elevated results. Calcium [Mass/Vol] 9.2 mg/dL Normal 8.4 - 10. 2 mg/dL AO ADM SS Chloride [Moles/Vol] 106 mmol/L Normal 98 - 10 7 mmol/L AO ADM SS CO2 [Moles/Vol] 28 mmol/L Normal 23 - 31 mmol/L AO ADM SS Creatinine [Mass/Vol] 1.61 mg/dL High 0.70 - 1.30 mg/dL AO ADM SS Electrolyte Balance 6.0 mEq/L Normal 4.0 - 15 .0 mEq/L AO ADM SS Eosinophil, Absolute 0.2 103/mcL Normal 0.0 - 0 .4 10^3/mcL AO Workflow SS Eosinophils/100 WBC (Bld) 3.7 % Normal 0.0 - 7.0 % AO Workflow SS Erythrocyte distribution width (RBC) [Ratio] 15.4 % High 11.5 - 14.5 % AO Workflow SS Free T4 [Mass/Vol] 2.71 ng/dL High 0.76 - 1. 46 ng/dL AO ADM SS GFR/1.73 sq M.predicted among blacks MDRD (S/P/Bld) [Vol rate/Area] 51 ml/min/1.73sqm Invalid Interpretation Code AO Chemistry S Comment on above: Interpretive Data: GFR Population mean for , Non- Americans Ages 20-29 = 116 mL/min/1.73 sq.m. Ages 30-39 = 107 mL/min/1.73 sq.m. Ages 40-49 = 99 mL/min/1.73 sq.m. Ages 50-59 = 93 mL/min/1.73 sq.m. Ages 60-69 = 85 mL/min/1.73 sq.m. Ages 70+ = 75 mL/min/1.73 sq.m. Chronic Kidney Disease: Less than 60 mL/min/1.73 square meters End Stage Renal Disease: Less than 15 mL/min/1.73 square meters GFR/1.73 sq M.predicted among non-blacks MDRD (S/P/Bld) [Vol rate/Area] 42 ml/min/1.73sqm Invalid Interpretation Code AO Chemistry S Comment on above: Interpretive Data: GFR Population mean for , Non- Americans Ages 20-29 = 116 mL/min/1.73 sq.m. Ages 30-39 = 107 mL/min/1.73 sq.m. Ages 40-49 = 99 mL/min/1.73 sq.m. Ages 50-59 = 93 mL/min/1.73 sq.m. Ages 60-69 = 85 mL/min/1.73 sq.m. Ages 70+ = 75 mL/min/1.73 sq.m. Chronic Kidney Disease: Less than 60 mL/min/1.73 square meters End Stage Renal Disease: Less than 15 mL/min/1.73 square meters Globulin 3.5 G/dL Invalid Interpretation Code AO ADM SS Glucose [Mass/Vol] 108 mg/dL Normal 83 - 110 mg/dL AO ADM SS HbA1c (Bld) [Mass fraction] 5.8 % Normal 4.3 - 6.4 % AO ADM SS Hematocrit (Bld) [Volume fraction] 44.9 % Normal 42.0 - 52.0 % AO Workflow SS Hemoglobin (Bld) [Mass/Vol] 14.9 G/dL Normal 14.0 - 18.0 G/dL AO Workflow SS Lymphocyte, Absolute 1.1 103/mcL Normal 0.8 - 3 .9 10^3/mcL AO Workflow SS Lymphocytes/100 WBC (Bld) 21.2 % Normal 10.0 - 50.0 % AO Workflow SS Magnesium [Mass/Vol] 1.8 mg/dL Normal 1.8 - 2 .4 mg/dL AO ADM SS MCH (RBC) [Entitic mass] 31.2 pg Normal 27.0 - 31.2 pg AO Workflow SS MCHC 33.2 G/dL Normal 31.8 - 35.4 G/dL AO Workflow SS MCV (RBC) [Entitic vol] 93.9 fL Normal 80.0 - 94.0 fL AO Workflow SS Monocyte, Absolute 0.8 103/mcL Normal 0.2 - 1.0 10^3/mcL AO Workflow SS Monocytes/100 WBC (Bld) 15.6 % High 1.7 - 13.0 % AO Workflow SS Neutrophil, Absolute 3.0 103/mcL Normal 2.9 - 6 .2 10^3/mcL AO Workflow SS Neutrophils/100 WBC (Bld) 58.9 % Normal 37.0 - 80.0 % AO Workflow SS Platelet mean volume (Bld) [Entitic vol] 7.2 fL Low 7.4 - 10.4 fL AO Workflow SS Platelets (Bld) [#/Vol] 161 103/mcL Normal 130 - 400 10^3/mcL AO Workflow SS Potassium [Moles/Vol] 4.6 mmol/L Normal 3.5 - 5.1 mmol/L AO ADM SS Protein [Mass/Vol] 6.6 G/dL Normal 6.4 - 8.2 G/dL AO ADM SS RBC (Bld) [#/Vol] 4.78 106/mcL Normal 4.04 - 6.1 3 10^6/mcL AO Workflow SS Sodium [Moles/Vol] 140 mmol/L Normal 136 - 145 mmol/L AO ADM SS TSH mcIU/mL Low 0.36 - 3.74 mcIU/mL AO ADM SS Urea nitrogen [Mass/Vol] 26 mg/dL High 7 - 18 mg/dL AO ADM SS Urea nitrogen/Creatinine [Mass ratio] 16 ratio Normal 7 - 27 ratio AO ADM SS WBC (Bld) [#/Vol] 5.1 103/mcL Normal 4.6 - 10.8 10^3/mcL AO Workflow SS LABORATORYOrdered By: Rosana Teague on 09-17-2023 Cholesterol [Mass/Vol] 106 mg/dL Normal 0 - 200 mg/dL AO ADM SS Comment on above: Interpretive Data: C holesterol Reference Interval: Less than 200 Desirable 200-239 Borderline high risk 240 and above High risk Cholesterol in HDL [Mass/Vol] 33 mg/dL Low 40 - 60 mg/dL AO ADM SS Cholesterol in LDL [Mass/Vol] 58 mg/dL Normal 0 - 130 mg/dL AO ADM SS Triglyceride [Mass/Vol] 74 mg/dL Normal 0 - 150 mg/dL AO ADM SS Comment on above: Interpretive Data: T riglyceride Reference Interval: Less than 150 Normal 150-199 Borderline high risk 200-499 High risk 500 or higher Very high risk LIPIDon 09-17-2023 Cholesterol [Mass/Vol] 106 mg/dL Normal 0-200 [facility] ([place]) Comment on above: Result Comment: Chol esterol Reference Interval: Less than 200 Desirable 200-239 Borderline high risk 240 and above High risk Performed By: #### T SH, CBC, GFR, FT4, PBNP, ANEU, MG, ADIFF, CMP #### [address] [address] #### T3 #### [address] [address] Cholesterol in HDL [Mass/Vol] 33 mg/dL Low 40-60 [facility] ([place]) Comment on above: Performed By: #### T SH, CBC, GFR, FT4, PBNP, ANEU, MG, ADIFF, CMP #### [address] [address] #### T3 #### [address] [address] Cholesterol in LDL [Mass/Vol] 58 mg/dL Normal 0-130 [facility] ([place]) Comment on above: Performed By: #### T SH, CBC, GFR, FT4, PBNP, ANEU, MG, ADIFF, CMP #### [address] [address] #### T3 #### [address] [address] Triglyceride [Mass/Vol] 74 mg/dL Normal 0-150 [facility] ([place]) Comment on above: Result Comment: Trig lyceride Reference Interval: Less than 150 Normal 150-199 Borderline high risk 200-499 High risk 500 or higher Very high risk Performed By: #### T SH, CBC, GFR, FT4, PBNP, ANEU, MG, ADIFF, CMP #### [address] [address] #### T3 #### [address] [address] MGon 09-17-2023 Magnesium [Mass/Vol] 1.8 mg/dL Normal 1.8-2.4 [facility] ([place]) Comment on above: Performed By: #### T SH, CBC, GFR, FT4, PBNP, ANEU, MG, ADIFF, CMP #### [address] [address] #### T3 #### [place] [id number] MRI BRAIN W/O CONTRASTon MRI BRAIN W/O CONTRAST ORIGINAL HISTORY: TIA COMPARISON: 20 November 2020 TECHNIQUE: 1. Sagittal T1-weighted images. 2. Axial T2-weighted and T2*-weighted images. 3. Axial FLAIR images. 4. Axial diffusion-weighted images with ADC map. FINDINGS: The ventricles and sulci are mildly enlarged. There are no abnormal intra or extra-axial fluid collections. There is mild punctate and nodular T2 hyperintensity in the cerebral white matter. There are remote lacunar infarcts in the periventricular white matter on both sides. Salcedo-white matter differentiation is maintained. There is no abnormal restriction of diffusion. IMPRESSION: Volume loss, small vessel ischemic disease and several remote lacunar infarcts. Lacunar infarcts are not well visualized on the comparison, possibly due in part to motion. Interpreted by: Abdi Gilmore MD Preliminary Report By: Abdi Gilmore MD Electronically signed By Abdi Gilmore MD Dictated Date: 09/17/2023 9:56:31 AM Prelim Date: 09/17/2023 9:59:27 AM Sign Date: 09/17/2023 9:59:27 AM Ordering Provider: FRANKLYN Cooper [facility] ([place]) TSHon 09-17-2023 TSH Qn m[IU]/L Low 0.36-3.74 [facility] ([place]) Comment on above: Performed By: #### T SH, CBC, GFR, FT4, PBNP, ANEU, MG, ADIFF, CMP #### [place] [id number] #### T3 #### [address] [address] .Auto Diffon 09-16-2023 Basophil, Absolute 0.0 10 3/mcL Normal 0.0-0.2 [facility] ([place]) Comment on above: Performed By: #### T SH, CBC, GFR, FT4, PBNP, ANEU, MG, ADIFF, CMP #### [place] [address] #### T3 #### [address] [address] Basophils/100 WBC (Bld) 0.4 % Normal 0.0-2.5 [facility] ([place]) Comment on above: Performed By: #### T SH, CBC, GFR, FT4, PBNP, ANEU, MG, ADIFF, CMP #### [place] [address] #### T3 #### [address] [address] Eosinophil, Absolute 0.1 10 3/mcL Normal 0.0-0.4 [facility] [place] Comment on above: Performed By: #### T SH, CBC, GFR, FT4, PBNP, ANEU, MG, ADIFF, CMP #### [address] [address] #### T3 #### [address] [address] Eosinophils/100 WBC (Bld) 2.2 % Normal 0.0-7.0 [facility] ([place]) Comment on above: Performed By: #### T SH, CBC, GFR, FT4, PBNP, ANEU, MG, ADIFF, CMP #### [place] [address] #### T3 #### [address] [address] Lymphocyte, Absolute 1.0 10 3/mcL Normal 0.8-3.9 [facility] [place] Comment on above: Performed By: #### T SH, CBC, GFR, FT4, PBNP, ANEU, MG, ADIFF, CMP #### [place] [address] #### T3 #### [address] [address] Lymphocytes/100 WBC (Bld) 19.5 % Normal 10.0-50.0 [facility] ([place]) Comment on above: Performed By: #### T SH, CBC, GFR, FT4, PBNP, ANEU, MG, ADIFF, CMP #### [place] [address] #### T3 #### [address] [address] Monocyte, Absolute 0.8 10 3/mcL Normal 0.2-1.0 [facility] ([place]) Comment on above: Performed By: #### T SH, CBC, GFR, FT4, PBNP, ANEU, MG, ADIFF, CMP #### [place] [address] #### T3 #### [address] [address] Monocytes/100 WBC (Bld) 17.3 % High 1.7-13.0 [facility] ([place]) Comment on above: Performed By: #### T SH, CBC, GFR, FT4, PBNP, ANEU, MG, ADIFF, CMP #### [place] [address] #### T3 #### [address] [address] Neutrophils/100 WBC (Bld) 60.6 % Normal 37.0-80.0 [facility] ([place]) Comment on above: Performed By: #### T SH, CBC, GFR, FT4, PBNP, ANEU, MG, ADIFF, CMP #### [place] [address] #### T3 #### [address] [address] .GFRon 09-16-2023 GFR 49 ml/min/1.73sqm Normal [facility] ([place]) Comment on above: Result Comment: GFR Population mean for , Non- Americans Ages 20-29 = 116 mL/min/1.73 sq.m. Ages 30-39 = 107 mL/min/1.73 sq.m. Ages 40-49 = 99 mL/min/1.73 sq.m. Ages 50-59 = 93 mL/min/1.73 sq.m. Ages 60-69 = 85 mL/min/1.73 sq.m. Ages 70+ = 75 mL/min/1.73 sq.m. Chronic Kidney Disease: Less than 60 mL/min/1.73 square meters End Stage Renal Disease: Less than 15 mL/min/1.73 square meters Performed By: #### T SH, CBC, GFR, FT4, PBNP, ANEU, MG, ADIFF, CMP #### [address] [address] #### T3 #### [address] [address] GFR Non- 40 ml/min/1.73sqm Normal [facility] ([place]) Comment on above: Result Comment: GFR Population mean for , Non- Americans Ages 20-29 = 116 mL/min/1.73 sq.m. Ages 30-39 = 107 mL/min/1.73 sq.m. Ages 40-49 = 99 mL/min/1.73 sq.m. Ages 50-59 = 93 mL/min/1.73 sq.m. Ages 60-69 = 85 mL/min/1.73 sq.m. Ages 70+ = 75 mL/min/1.73 sq.m. Chronic Kidney Disease: Less than 60 mL/min/1.73 square meters End Stage Renal Disease: Less than 15 mL/min/1.73 square meters Performed By: #### T SH, CBC, GFR, FT4, PBNP, ANEU, MG, ADIFF, CMP #### [address] [address] #### T3 #### [address] [address] .MDWon 09-16-2023 Monocyte Distribution Width 19.32 Normal 0.00-20.00 [facility] ([place]) Comment on above: Result Comment: For ED adult patients suspected of sepsis, MDW<=20.0 does not rule out sepsis or risk of sepsis Performed By: #### T SH, CBC, GFR, FT4, PBNP, ANEU, MG, ADIFF, CMP #### [place] [address] #### T3 #### [place] [id number] .NEUABSon 09-16-2023 Neutrophil, Absolute 3.0 10 3/mcL Normal 2.9-6.2 [facility] [place] Comment on above: Performed By: #### T SH, CBC, GFR, FT4, PBNP, ANEU, MG, ADIFF, CMP #### [place] [address] #### T3 #### [place] [address] BMPon 09-16-2023 BUN/Creatinine Ratio 17 ratio Normal 7-27 [facility] ([place]) Comment on above: Performed By: #### T SH, CBC, GFR, FT4, PBNP, ANEU, MG, ADIFF, CMP #### [place] [address] #### T3 #### [place] [address] Calcium [Mass/Vol] 9.0 mg/dL Normal 8.4-10.2 [facility] ([place]) Comment on above: Performed By: #### T SH, CBC, GFR, FT4, PBNP, ANEU, MG, ADIFF, CMP #### [place] [address] #### T3 #### [place] [address] Chloride [Moles/Vol] 106 mmol/L Normal 98-107 [facility] ([place]) Comment on above: Performed By: #### T SH, CBC, GFR, FT4, PBNP, ANEU, MG, ADIFF, CMP #### [address] [address] #### T3 #### [address] [address] CO2 [Moles/Vol] 26 mmol/L Normal 23-31 [facility] ([place]) Comment on above: Performed By: #### T SH, CBC, GFR, FT4, PBNP, ANEU, MG, ADIFF, CMP #### [place] [address] #### T3 #### [address] [address] Creatinine [Mass/Vol] 1.67 mg/dL High 0.70-1.30 [facility] ([place]) Comment on above: Performed By: #### T SH, CBC, GFR, FT4, PBNP, ANEU, MG, ADIFF, CMP #### [place] [address] #### T3 #### [address] [address] Electrolyte Balance 9.0 mEq/L Normal 4.0-15.0 [facility] ([place]) Comment on above: Performed By: #### T SH, CBC, GFR, FT4, PBNP, ANEU, MG, ADIFF, CMP #### [address] [address] #### T3 #### [address] [address] Glucose [Mass/Vol] 112 mg/dL High 83-110 [facility] ([place]) Comment on above: Performed By: #### T SH, CBC, GFR, FT4, PBNP, ANEU, MG, ADIFF, CMP #### [place] [address] #### T3 #### [address] [address] Potassium [Moles/Vol] 4.9 mmol/L Normal 3.5-5.1 [facility] ([place]) Comment on above: Performed By: #### T SH, CBC, GFR, FT4, PBNP, ANEU, MG, ADIFF, CMP #### [address] [address] #### T3 #### [address] [address] Sodium [Moles/Vol] 141 mmol/L Normal 136-145 [facility] ([place]) Comment on above: Performed By: #### T SH, CBC, GFR, FT4, PBNP, ANEU, MG, ADIFF, CMP #### [place] [address] #### T3 #### [address] [address] Urea nitrogen [Mass/Vol] 29 mg/dL High 7-18 [facility] ([place]) Comment on above: Performed By: #### T SH, CBC, GFR, FT4, PBNP, ANEU, MG, ADIFF, CMP #### [place] [address] #### T3 #### [place] [address] CBCon 09-16-2023 Erythrocyte distribution width (RBC) [Ratio] 15.3 % High 11.5-14.5 [facility] ([place]) Comment on above: Performed By: #### T SH, CBC, GFR, FT4, PBNP, ANEU, MG, ADIFF, CMP #### [place] [address] #### T3 #### [place] [address] Hematocrit (Bld) [Volume fraction] 46.5 % Normal 42.0-52.0 [facility] ([place]) Comment on above: Performed By: #### T SH, CBC, GFR, FT4, PBNP, ANEU, MG, ADIFF, CMP #### [place] [address] #### T3 #### [address] [address] Hgb 15.5 G/dL Normal 14.0-18.0 [facility] ([place]) Comment on above: Performed By: #### T SH, CBC, GFR, FT4, PBNP, ANEU, MG, ADIFF, CMP #### [place] [address] #### T3 #### [address] [address] MCH (RBC) [Entitic mass] 31.7 pg High 27.0-31.2 [facility] ([place]) Comment on above: Performed By: #### T SH, CBC, GFR, FT4, PBNP, ANEU, MG, ADIFF, CMP #### [place] [address] #### T3 #### [place] [address] MCHC 33.3 G/dL Normal 31.8-35.4 [facility] ([place]) Comment on above: Performed By: #### T SH, CBC, GFR, FT4, PBNP, ANEU, MG, ADIFF, CMP #### [place] [address] #### T3 #### [place] [address] MCV (RBC) [Entitic vol] 95.0 fL High 80.0-94.0 [facility] ([place]) Comment on above: Performed By: #### T SH, CBC, GFR, FT4, PBNP, ANEU, MG, ADIFF, CMP #### [place] [address] #### T3 #### [place] [address] Platelet 179 10 3/mcL Normal 130-400 [facility] ([place]) Comment on above: Performed By: #### T SH, CBC, GFR, FT4, PBNP, ANEU, MG, ADIFF, CMP #### [place] [address] #### T3 #### [place] [address] Platelet mean volume (Bld) [Entitic vol] 7.3 fL Low 7.4-10.4 [facility] ([place]) Comment on above: Performed By: #### T SH, CBC, GFR, FT4, PBNP, ANEU, MG, ADIFF, CMP #### [address] [address] #### T3 #### [address] [address] RBC 4.89 10 6/mcL Normal 4.04-6.13 [facility] ([place]) Comment on above: Performed By: #### T SH, CBC, GFR, FT4, PBNP, ANEU, MG, ADIFF, CMP #### [place] [address] #### T3 #### [place] [address] WBC 4.9 10 3/mcL Normal 4.6-10.8 [facility] ([place]) Comment on above: Performed By: #### T SH, CBC, GFR, FT4, PBNP, ANEU, MG, ADIFF, CMP #### [place] [address] #### T3 #### [place] [address] CT ANGIOGRAPHY HEAD W/ CONTR Christian 09-16-2023 CT ANGIOGRAPHY HEAD W/ CONTRAST ORIGINAL HISTORY: Stroke COMPARISON: 18 November 2020 TECHNIQUE: CT angiography of the head following uncomplicated administration of intravenous contrast, with 3D post-acquisition processing and with results displayed in source images, sagittal reconstructions through the carotid siphons, maximum intensity projections and volume rendered images. This exam was performed according to our departmental dose optimization program, and includes the following measures where applicable: automated exposure control, adjustment of the mAs and/or kVp according to patient size and/or exam, and an iterative reconstruction algorithm. FINDINGS: The study is of poor technical quality, limited by contrast timing and by low CT dose with poor signal to noise ratio. There are atherosclerotic changes to the cavernous internal carotid arteries, with stenosis on either side. The more distal branches of the internal carotid arteries are patent without aneurysm or occlusion. The major vessels of the posterior circulation are grossly unremarkable. IMPRESSION: Limited examination. No large vessel occlusion is seen. Interpreted by: Abdi Gilmore MD Preliminary Report By: Abdi Gilmore MD Electronically signed By Abdi Gilmore MD Dictated Date: 09/16/2023 3:13:12 PM Prelim Date: 09/16/2023 3:15:44 PM Sign Date: 09/16/2023 3:15:44 PM Ordering Provider: FRANKLYN CARIAS [facility]) CT ANGIOGRAPHY NECK W/CONTRA STon 09-16-2023 CT ANGIOGRAPHY NECK W/CONTRAST ORIGINAL HISTORY: Stroke COMPARISON: 18 November 2020 TECHNIQUE: CT angiogram of the neck following uncomplicated administration of intravenous contrast, with 3-D post acquisition processing and with results displayed in source images, rotational reconstructions centered on the carotid bifurcations and in maximum intensity projection. Percent stenosis is calculated using NASCET criteria. This exam was performed according to our departmental dose optimization program, and includes the following measures where applicable: automated exposure control, adjustment of the mAs and/or kVp according to patient size and/or exam, and an iterative reconstruction algorithm. FINDINGS: There are mild atherosclerotic changes to the distal common and proximal internal carotid arteries. There is no hemodynamically significant stenosis of either internal carotid artery. The vertebral arteries are roughly symmetric caliber. Both vertebral arteries are visualized from origin through skull base. IMPRESSION: No hemodynamically significant stenosis of either internal carotid artery. Interpreted by: Abdi Gilmore MD Preliminary Report By: Abdi Gilmore MD Electronically signed By Abdi Gilmore MD Dictated Date: 09/16/2023 2:37:31 PM Prelim Date: 09/16/2023 3:10:49 PM Sign Date: 09/16/2023 3:10:49 PM Ordering Provider: FRANKLYN CARIAS [facility]) CT HEAD OR BRAIN W/O CONTRAS Ton 09-16-2023 CT HEAD OR BRAIN W/O CONTRAST ORIGINAL HISTORY: Change in mental status COMPARISON: 18 November 2020 TECHNIQUE: Routine noncontrast head CT, with sagittal and coronal reconstructions. This exam was performed according to our departmental dose optimization program, and includes the following measures where applicable: automated exposure control, adjustment of the mAs and/or kVp according to patient size and/or exam, and an iterative reconstruction algorithm. FINDINGS: The study is degraded by motion. The ventricles and sulci are mildly enlarged. There are no abnormal intra or extra-axial fluid collections. There is mild irregular decreased attenuation in the cerebral white matter. Salcedo-white matter differentiation is maintained. The calvaria and the bones of the base of the skull are intact. IMPRESSION: No significant interval change. Interpreted by: Abdi Gilmore MD Preliminary Report By: Abdi Gilmore MD Electronically signed By Abdi Gilmore MD Dictated Date: 09/16/2023 1:56:17 PM Prelim Date: 09/16/2023 1:59:27 PM Sign Date: 09/16/2023 1:59:27 PM Ordering Provider: FRANKLYN Cooper [facility] ([place]) LABORATORYOrdered By: SYSTEM SYSTEM on 09-16-2023 Troponin I.cardiac DL <= 0.01 ng/mL [Mass/Vol] 28 ng/L Normal 0 - 76 ng/L AO ADM SS Comment on above: Interpretive Data: H igh Sensitive Troponin I Reference Ranges: Female: 0-51 ng/L Male: 0-76 ng/L Testing performed on [employer] using a homogeneous sandwich chemiluminescent immunoassay based on [employer] technology. Basophil, Absolute 0.0 103/mcL Normal 0.0 - 0.2 10^3/mcL AO Workflow SS Basophils/100 WBC (Bld) 0.4 % Normal 0.0 - 2.5 % AO Workflow SS Calcium [Mass/Vol] 9.0 mg/dL Normal 8.4 - 10. 2 mg/dL AO ADM SS Chloride [Moles/Vol] 106 mmol/L Normal 98 - 10 7 mmol/L AO ADM SS CO2 [Moles/Vol] 26 mmol/L Normal 23 - 31 mmol/L AO ADM SS Creatinine [Mass/Vol] 1.67 mg/dL High 0.70 - 1.30 mg/dL AO ADM SS Electrolyte Balance 9.0 mEq/L Normal 4.0 - 15 .0 mEq/L AO ADM SS Eosinophil, Absolute 0.1 103/mcL Normal 0.0 - 0 .4 10^3/mcL AO Workflow SS Eosinophils/100 WBC (Bld) 2.2 % Normal 0.0 - 7.0 % AO Workflow SS Erythrocyte distribution width (RBC) [Ratio] 15.3 % High 11.5 - 14.5 % AO Workflow SS GFR/1.73 sq M.predicted among blacks MDRD (S/P/Bld) [Vol rate/Area] 49 ml/min/1.73sqm Invalid Interpretation Code AO Chemistry S Comment on above: Interpretive Data: GFR Population mean for , Non- Americans Ages 20-29 = 116 mL/min/1.73 sq.m. Ages 30-39 = 107 mL/min/1.73 sq.m. Ages 40-49 = 99 mL/min/1.73 sq.m. Ages 50-59 = 93 mL/min/1.73 sq.m. Ages 60-69 = 85 mL/min/1.73 sq.m. Ages 70+ = 75 mL/min/1.73 sq.m. Chronic Kidney Disease: Less than 60 mL/min/1.73 square meters End Stage Renal Disease: Less than 15 mL/min/1.73 square meters GFR/1.73 sq M.predicted among non-blacks MDRD (S/P/Bld) [Vol rate/Area] 40 ml/min/1.73sqm Invalid Interpretation Code AO Chemistry S Comment on above: Interpretive Data: GFR Population mean for , Non- Americans Ages 20-29 = 116 mL/min/1.73 sq.m. Ages 30-39 = 107 mL/min/1.73 sq.m. Ages 40-49 = 99 mL/min/1.73 sq.m. Ages 50-59 = 93 mL/min/1.73 sq.m. Ages 60-69 = 85 mL/min/1.73 sq.m. Ages 70+ = 75 mL/min/1.73 sq.m. Chronic Kidney Disease: Less than 60 mL/min/1.73 square meters End Stage Renal Disease: Less than 15 mL/min/1.73 square meters Glucose [Mass/Vol] 112 mg/dL High 83 - 110 mg/dL AO ADM SS Hematocrit (Bld) [Volume fraction] 46.5 % Normal 42.0 - 52.0 % AO Workflow SS Hemoglobin (Bld) [Mass/Vol] 15.5 G/dL Normal 14.0 - 18.0 G/dL AO Workflow SS Lymphocyte, Absolute 1.0 103/mcL Normal 0.8 - 3 .9 10^3/mcL AO Workflow SS Lymphocytes/100 WBC (Bld) 19.5 % Normal 10.0 - 50.0 % AO Workflow SS MCH (RBC) [Entitic mass] 31.7 pg High 27.0 - 31.2 pg AO Workflow SS MCHC 33.3 G/dL Normal 31.8 - 35.4 G/dL AO Workflow SS MCV (RBC) [Entitic vol] 95.0 fL High 80.0 - 94.0 fL AO Workflow SS Monocyte distribution width Auto (Bld) [Entitic vol] 19.32 1 Normal 0.00 - 20.00 AO Workflow SS Comment on above: Result Comment: For ED adult patients suspected of sepsis, MDW<=20.0 does not rule out sepsis or risk of sepsis Monocyte, Absolute 0.8 103/mcL Normal 0.2 - 1.0 10^3/mcL AO Workflow SS Monocytes/100 WBC (Bld) 17.3 % High 1.7 - 13.0 % AO Workflow SS Neutrophil, Absolute 3.0 103/mcL Normal 2.9 - 6 .2 10^3/mcL AO Workflow SS Neutrophils/100 WBC (Bld) 60.6 % Normal 37.0 - 80.0 % AO Workflow SS Platelet mean volume (Bld) [Entitic vol] 7.3 fL Low 7.4 - 10.4 fL AO Workflow SS Platelets (Bld) [#/Vol] 179 103/mcL Normal 130 - 400 10^3/mcL AO Workflow SS Potassium [Moles/Vol] 4.9 mmol/L Normal 3.5 - 5.1 mmol/L AO ADM SS RBC (Bld) [#/Vol] 4.89 106/mcL Normal 4.04 - 6.1 3 10^6/mcL AO Workflow SS Sodium [Moles/Vol] 141 mmol/L Normal 136 - 145 mmol/L AO ADM SS Troponin I.cardiac DL <= 0.01 ng/mL [Mass/Vol] 33 ng/L Normal 0 - 76 ng/L AO ADM SS Comment on above: Interpretive Data: H igh Sensitive Troponin I Reference Ranges: Female: 0-51 ng/L Male: 0-76 ng/L Testing performed on [employer] using a homogeneous sandwich chemiluminescent immunoassay based on [employer] technology. TSH mcIU/mL Low 0.36 - 3.74 mcIU/mL AO ADM SS Urea nitrogen [Mass/Vol] 29 mg/dL High 7 - 18 mg/dL AO ADM SS Urea nitrogen/Creatinine [Mass ratio] 17 ratio Normal 7 - 27 ratio AO ADM SS WBC (Bld) [#/Vol] 4.9 103/mcL Normal 4.6 - 10.8 10^3/mcL AO Workflow SS TROPHSon 09-16-2023 High Sensitivity Troponin I 28 ng/L Normal 0-76 [facility] ([place]) Comment on above: Result Comment: High Sensitive Troponin I Reference Ranges: Female: 0-51 ng/L Male: 0-76 ng/L Testing performed on [employer] using a homogeneous sandwich chemiluminescent immunoassay based on [employer] technology. Performed By: #### T SH, CBC, GFR, FT4, PBNP, ANEU, MG, ADIFF, CMP #### [place] [address] #### T3 #### [place] [address] High Sensitivity Troponin I 33 ng/L Normal 0-76 [facility] ([place]) Comment on above: Result Comment: High Sensitive Troponin I Reference Ranges: Female: 0-51 ng/L Male: 0-76 ng/L Testing performed on [employer] EXL using a homogeneous sandwich chemiluminescent immunoassay based on [employer] technology. Performed By: #### T SH, CBC, GFR, FT4, PBNP, ANEU, MG, ADIFF, CMP #### [place] [address] #### T3 #### [place] [address] TSHon 09-16-2023 TSH Qn m[IU]/L Low 0.36-3.74 [facility] ([place]) Comment on above: Performed By: #### T SH, CBC, GFR, FT4, PBNP, ANEU, MG, ADIFF, CMP #### [place] [address] #### T3 #### [place] [address] XR CHEST 2 VIEWSon 4 XR CHEST 2 VIEWS ORIGINAL EXAMINATION: TWO XRAY VIEWS OF THE CHEST 09/16/2023 2:10 pm COMPARISON: Enteric tube placement dated 08/19/2022. Prior chest x-ray dated 12/26/2020. HISTORY: ORDERING SYSTEM PROVIDED HISTORY: Reason for Exam: Chest Pain/SOB FINDINGS: The cardiomediastinal silhouette is stable in appearance with sternotomy changes noted. Spinal stimulator leads are seen overlying midline. There is mild central vascular congestion. Otherwise no consolidation is seen. No sizable pleural effusion or pneumothorax. IMPRESSION: Mild central vascular congestion. Interpreted by: Claus Ni MD Preliminary Report By: Claus Ni MD Electronically signed By Claus Ni MD Dictated Date: 09/16/2023 2:46:08 PM Prelim Date: 09/16/2023 2:47:12 PM Sign Date: 09/16/2023 2:47:12 PM Ordering Provider: FRANKLYN Cooper [facility] ([place]) FT4on 09-08-2023 Free T4 [Mass/Vol] 2.47 ng/dL High 0.76-1.46 [facility] ([place]) Comment on above: Performed By: #### T SH, CBC, GFR, FT4, PBNP, ANEU, MG, ADIFF, CMP #### [place] [address] #### T3 #### [place] [address] LABORATORYOrdered By: SYSTEM SYSTEM on 09-08-2023 Free T4 [Mass/Vol] 2.47 ng/dL High 0.76 - 1. 46 ng/dL AO ADM SS T3 [Mass/Vol] 177 ng/dL Normal 60 - 181 ng/dL AH ADM SS TSH mcIU/mL Low 0.36 - 3.74 mcIU/mL AO ADM SS T3on 09-08-2023 Total T3 177 ng/dL Normal 60-181 [facility] ([place]) Comment on above: Performed By: #### T SH, CBC, GFR, FT4, PBNP, ANEU, MG, ADIFF, CMP #### [address] [address] #### T3 #### [address] [address] TSHon 09-08-2023 TSH Qn m[IU]/L Low 0.36-3.74 [facility] ([place]) Comment on above: Performed By: #### T SH, CBC, GFR, FT4, PBNP, ANEU, MG, ADIFF, CMP #### [address] [address] #### T3 #### [address] [address] .Auto Diffon 09-03-2023 Basophil, Absolute 0.0 10 3/mcL Normal 0.0-0.2 [facility] ([place]) Comment on above: Performed By: #### T SH, CBC, GFR, FT4, PBNP, ANEU, MG, ADIFF, CMP #### [address] [address] #### T3 #### [address] [address] Basophils/100 WBC (Bld) 0.4 % Normal 0.0-2.5 [facility] ([place]) Comment on above: Performed By: #### T SH, CBC, GFR, FT4, PBNP, ANEU, MG, ADIFF, CMP #### [place] [address] #### T3 #### [address] [address] Eosinophil, Absolute 0.1 10 3/mcL Normal 0.0-0.4 [facility] [place] Comment on above: Performed By: #### T SH, CBC, GFR, FT4, PBNP, ANEU, MG, ADIFF, CMP #### [place] [address] #### T3 #### [address] [address] Eosinophils/100 WBC (Bld) 2.5 % Normal 0.0-7.0 [facility] ([place]) Comment on above: Performed By: #### T SH, CBC, GFR, FT4, PBNP, ANEU, MG, ADIFF, CMP #### [address] [address] #### T3 #### [address] [address] Lymphocyte, Absolute 1.0 10 3/mcL Normal 0.8-3.9 [facility] [place] Comment on above: Performed By: #### T SH, CBC, GFR, FT4, PBNP, ANEU, MG, ADIFF, CMP #### [address] [address] #### T3 #### [address] [address] Lymphocytes/100 WBC (Bld) 19.8 % Normal 10.0-50.0 [facility] ([place]) Comment on above: Performed By: #### T SH, CBC, GFR, FT4, PBNP, ANEU, MG, ADIFF, CMP #### [address] [address] #### T3 #### [address] [address] Monocyte, Absolute 0.8 10 3/mcL Normal 0.2-1.0 [facility] ([place] Comment on above: Performed By: #### T SH, CBC, GFR, FT4, PBNP, ANEU, MG, ADIFF, CMP #### [address] [address] #### T3 #### [address] [address] Monocytes/100 WBC (Bld) 16.0 % High 1.7-13.0 [facility] ([place]) Comment on above: Performed By: #### T SH, CBC, GFR, FT4, PBNP, ANEU, MG, ADIFF, CMP #### [address] [address] #### T3 #### [address] [address] Neutrophils/100 WBC (Bld) 61.3 % Normal 37.0-80.0 [facility] ([place]) Comment on above: Performed By: #### T SH, CBC, GFR, FT4, PBNP, ANEU, MG, ADIFF, CMP #### [place] [address] #### T3 #### [address] [address] .GFRon 09-03-2023 GFR 42 ml/min/1.73sqm Normal [facility] ([place]) Comment on above: Result Comment: GFR Population mean for , Non- Americans Ages 20-29 = 116 mL/min/1.73 sq.m. Ages 30-39 = 107 mL/min/1.73 sq.m. Ages 40-49 = 99 mL/min/1.73 sq.m. Ages 50-59 = 93 mL/min/1.73 sq.m. Ages 60-69 = 85 mL/min/1.73 sq.m. Ages 70+ = 75 mL/min/1.73 sq.m. Chronic Kidney Disease: Less than 60 mL/min/1.73 square meters End Stage Renal Disease: Less than 15 mL/min/1.73 square meters Performed By: #### T SH, CBC, GFR, FT4, PBNP, ANEU, MG, ADIFF, CMP #### [address] [address] #### T3 #### [address] [address] GFR Non- 35 ml/min/1.73sqm Normal [facility] ([place]) Comment on above: Result Comment: GFR Population mean for , Non- Americans Ages 20-29 = 116 mL/min/1.73 sq.m. Ages 30-39 = 107 mL/min/1.73 sq.m. Ages 40-49 = 99 mL/min/1.73 sq.m. Ages 50-59 = 93 mL/min/1.73 sq.m. Ages 60-69 = 85 mL/min/1.73 sq.m. Ages 70+ = 75 mL/min/1.73 sq.m. Chronic Kidney Disease: Less than 60 mL/min/1.73 square meters End Stage Renal Disease: Less than 15 mL/min/1.73 square meters Performed By: #### T SH, CBC, GFR, FT4, PBNP, ANEU, MG, ADIFF, CMP #### [address] [address] #### T3 #### [place] [address] .NEUABSon 09-03-2023 Neutrophil, Absolute 3.2 10 3/mcL Normal 2.9-6.2 [facility] [place] Comment on above: Performed By: #### T SH, CBC, GFR, FT4, PBNP, ANEU, MG, ADIFF, CMP #### [place] [address] #### T3 #### [place] [address] CBCon 09-03-2023 Erythrocyte distribution width (RBC) [Ratio] 15.7 % High 11.5-14.5 [facility] ([place]) Comment on above: Performed By: #### T SH, CBC, GFR, FT4, PBNP, ANEU, MG, ADIFF, CMP #### [place] [address] #### T3 #### [place] [address] Hematocrit (Bld) [Volume fraction] 45.6 % Normal 42.0-52.0 [facility] ([place]) Comment on above: Performed By: #### T SH, CBC, GFR, FT4, PBNP, ANEU, MG, ADIFF, CMP #### [address] [address] #### T3 #### [place] [address] Hgb 15.9 G/dL Normal 14.0-18.0 [facility] ([place]) Comment on above: Performed By: #### T SH, CBC, GFR, FT4, PBNP, ANEU, MG, ADIFF, CMP #### [place] [address] #### T3 #### [place] [address] MCH (RBC) [Entitic mass] 31.9 pg High 27.0-31.2 [facility] ([place]) Comment on above: Performed By: #### T SH, CBC, GFR, FT4, PBNP, ANEU, MG, ADIFF, CMP #### [place] [address] #### T3 #### [place] [address] MCHC 34.9 G/dL Normal 31.8-35.4 [facility] ([place]) Comment on above: Performed By: #### T SH, CBC, GFR, FT4, PBNP, ANEU, MG, ADIFF, CMP #### [place] [address] #### T3 #### [place] [address] MCV (RBC) [Entitic vol] 91.6 fL Normal 80.0-94.0 [facility] ([place]) Comment on above: Performed By: #### T SH, CBC, GFR, FT4, PBNP, ANEU, MG, ADIFF, CMP #### [place] [address] #### T3 #### [place] [address] Platelet 183 10 3/mcL Normal 130-400 [facility] ([place]) Comment on above: Performed By: #### T SH, CBC, GFR, FT4, PBNP, ANEU, MG, ADIFF, CMP #### [place] [address] #### T3 #### [place] [address] Platelet mean volume (Bld) [Entitic vol] 7.3 fL Low 7.4-10.4 [facility] ([place]) Comment on above: Performed By: #### T SH, CBC, GFR, FT4, PBNP, ANEU, MG, ADIFF, CMP #### [place] [address] #### T3 #### [place] [address] RBC 4.98 10 6/mcL Normal 4.04-6.13 [facility] ([place]) Comment on above: Performed By: #### T SH, CBC, GFR, FT4, PBNP, ANEU, MG, ADIFF, CMP #### [place] [address] #### T3 #### [address] [address] WBC 5.3 10 3/mcL Normal 4.6-10.8 [facility] ([place]) Comment on above: Performed By: #### T SH, CBC, GFR, FT4, PBNP, ANEU, MG, ADIFF, CMP #### [place] [address] #### T3 #### [address] 09-03-2023 Albumin Level 3.6 G/dL Normal 3.4-4.8 [facility] ([place]) Comment on above: Performed By: #### T SH, CBC, GFR, FT4, PBNP, ANEU, MG, ADIFF, CMP #### [place] [address] #### T3 #### [place] [address] Albumin/Globulin [Mass ratio] 0.9 {ratio} Low 1.1-2.5 [facility] ([place]) Comment on above: Performed By: #### T SH, CBC, GFR, FT4, PBNP, ANEU, MG, ADIFF, CMP #### [place] [address] #### T3 #### [place] [address] ALP [Catalytic activity/Vol] 153 U/L High 40-135 [facility] ([place]) Comment on above: Performed By: #### T SH, CBC, GFR, FT4, PBNP, ANEU, MG, ADIFF, CMP #### [place] [address] #### T3 #### [place] [address] ALT [Catalytic activity/Vol] 31 U/L Normal 16-63 [facility] ([place]) Comment on above: Performed By: #### T SH, CBC, GFR, FT4, PBNP, ANEU, MG, ADIFF, CMP #### [place] [address] #### T3 #### [address] [address] AST [Catalytic activity/Vol] 22 U/L Normal 10-40 [facility] ([place]) Comment on above: Performed By: #### T SH, CBC, GFR, FT4, PBNP, ANEU, MG, ADIFF, CMP #### [place] [address] #### T3 #### [address] [address] Bili Total 1.2 mg/dL High 0.2-1.0 [facility] ([place]) Comment on above: Result Comment: Use of this assay is not recommended for patients undergoing treatment with eltrombopag due to the potential for falsely elevated results. Performed By: #### T SH, CBC, GFR, FT4, PBNP, ANEU, MG, ADIFF, CMP #### [place] [address] #### T3 #### [address] [address] BUN/Creatinine Ratio 17 ratio Normal 7-27 [facility] ([place]) Comment on above: Performed By: #### T SH, CBC, GFR, FT4, PBNP, ANEU, MG, ADIFF, CMP #### [place] [address] #### T3 #### [address] [address] Calcium [Mass/Vol] 9.5 mg/dL Normal 8.4-10.2 [facility] ([place]) Comment on above: Performed By: #### T SH, CBC, GFR, FT4, PBNP, ANEU, MG, ADIFF, CMP #### [place] [address] #### T3 #### [place] [address] Chloride [Moles/Vol] 103 mmol/L Normal 98-107 [facility] ([place]) Comment on above: Performed By: #### T SH, CBC, GFR, FT4, PBNP, ANEU, MG, ADIFF, CMP #### [place] [address] #### T3 #### [place] [address] CO2 [Moles/Vol] 30 mmol/L Normal 23-31 [facility] ([place]) Comment on above: Performed By: #### T SH, CBC, GFR, FT4, PBNP, ANEU, MG, ADIFF, CMP #### [place] [address] #### T3 #### [place] [address] Creatinine [Mass/Vol] 1.89 mg/dL High 0.70-1.30 [facility] ([place]) Comment on above: Performed By: #### T SH, CBC, GFR, FT4, PBNP, ANEU, MG, ADIFF, CMP #### [place] [address] #### T3 #### [place] [address] Electrolyte Balance 7.0 mEq/L Normal 4.0-15.0 [facility] ([place]) Comment on above: Performed By: #### T SH, CBC, GFR, FT4, PBNP, ANEU, MG, ADIFF, CMP #### [place] [address] #### T3 #### [place] [address] Globulin 3.8 G/dL Normal [facility] ([place]) Comment on above: Performed By: #### T SH, CBC, GFR, FT4, PBNP, ANEU, MG, ADIFF, CMP #### [place] [address] #### T3 #### [address] [address] Glucose [Mass/Vol] 120 mg/dL High 83-110 [facility] ([place]) Comment on above: Performed By: #### T SH, CBC, GFR, FT4, PBNP, ANEU, MG, ADIFF, CMP #### [address] [address] #### T3 #### [address] [address] Potassium [Moles/Vol] 5.2 mmol/L High 3.5-5.1 [facility] ([place]) Comment on above: Performed By: #### T SH, CBC, GFR, FT4, PBNP, ANEU, MG, ADIFF, CMP #### [address] [address] #### T3 #### [address] [address] Sodium [Moles/Vol] 140 mmol/L Normal 136-145 [facility] ([place]) Comment on above: Performed By: #### T SH, CBC, GFR, FT4, PBNP, ANEU, MG, ADIFF, CMP #### [address] [address] #### T3 #### [address] [address] Total Protein 7.4 G/dL Normal 6.4-8.2 [facility] ([place]) Comment on above: Performed By: #### T SH, CBC, GFR, FT4, PBNP, ANEU, MG, ADIFF, CMP #### [address] [address] #### T3 #### [address] [address] Urea nitrogen [Mass/Vol] 32 mg/dL High 7-18 [facility] ([place]) Comment on above: Performed By: #### T SH, CBC, GFR, FT4, PBNP, ANEU, MG, ADIFF, CMP #### [address] [address] #### T3 #### [address] [address] FT4on 09-03-2023 Free T4 [Mass/Vol] 2.87 ng/dL High 0.76-1.46 [facility] ([place]) Comment on above: Performed By: #### T SH, CBC, GFR, FT4, PBNP, ANEU, MG, ADIFF, CMP #### [facility] [address] [place], [place] [address] #### T3 #### [address] [address] LABORATORYOrdered By: SYSTEM SYSTEM on 09-03-2023 Albumin BCP dye [Mass/Vol] 3.6 G/dL Normal 3.4 - 4.8 G/dL AO ADM SS Albumin/Globulin [Mass ratio] 0.9 {ratio} Low 1.1 - 2.5 ratio AO ADM SS ALP [Catalytic activity/Vol] 153 U/L High 40 - 135 U/L AO ADM SS ALT With P-5'-P [Catalytic activity/Vol] 31 U/L Normal 16 - 63 U/L AO ADM SS AST With P-5'-P [Catalytic activity/Vol] 22 U/L Normal 10 - 40 U/L AO ADM SS Basophil, Absolute 0.0 103/mcL Normal 0.0 - 0.2 10^3/mcL AO Workflow SS Basophils/100 WBC (Bld) 0.4 % Normal 0.0 - 2.5 % AO Workflow SS Bilirubin [Mass/Vol] 1.2 mg/dL High 0.2 - 1 .0 mg/dL AO ADM SS Comment on above: Interpretive Data: U se of this assay is not recommended for patients undergoing treatment with eltrombopag due to the potential for falsely elevated results. Calcium [Mass/Vol] 9.5 mg/dL Normal 8.4 - 10. 2 mg/dL AO ADM SS Chloride [Moles/Vol] 103 mmol/L Normal 98 - 10 7 mmol/L AO ADM SS CO2 [Moles/Vol] 30 mmol/L Normal 23 - 31 mmol/L AO ADM SS Creatinine [Mass/Vol] 1.89 mg/dL High 0.70 - 1.30 mg/dL AO ADM SS Electrolyte Balance 7.0 mEq/L Normal 4.0 - 15 .0 mEq/L AO ADM SS Eosinophil, Absolute 0.1 103/mcL Normal 0.0 - 0 .4 10^3/mcL AO Workflow SS Eosinophils/100 WBC (Bld) 2.5 % Normal 0.0 - 7.0 % AO Workflow SS Erythrocyte distribution width (RBC) [Ratio] 15.7 % High 11.5 - 14.5 % AO Workflow SS Free T4 [Mass/Vol] 2.87 ng/dL High 0.76 - 1. 46 ng/dL AO ADM SS GFR/1.73 sq M.predicted among blacks MDRD (S/P/Bld) [Vol rate/Area] 42 ml/min/1.73sqm Invalid Interpretation Code AO Chemistry S Comment on above: Interpretive Data: GFR Population mean for , Non- Americans Ages 20-29 = 116 mL/min/1.73 sq.m. Ages 30-39 = 107 mL/min/1.73 sq.m. Ages 40-49 = 99 mL/min/1.73 sq.m. Ages 50-59 = 93 mL/min/1.73 sq.m. Ages 60-69 = 85 mL/min/1.73 sq.m. Ages 70+ = 75 mL/min/1.73 sq.m. Chronic Kidney Disease: Less than 60 mL/min/1.73 square meters End Stage Renal Disease: Less than 15 mL/min/1.73 square meters GFR/1.73 sq M.predicted among non-blacks MDRD (S/P/Bld) [Vol rate/Area] 35 ml/min/1.73sqm Invalid Interpretation Code AO Chemistry S Comment on above: Interpretive Data: GFR Population mean for , Non- Americans Ages 20-29 = 116 mL/min/1.73 sq.m. Ages 30-39 = 107 mL/min/1.73 sq.m. Ages 40-49 = 99 mL/min/1.73 sq.m. Ages 50-59 = 93 mL/min/1.73 sq.m. Ages 60-69 = 85 mL/min/1.73 sq.m. Ages 70+ = 75 mL/min/1.73 sq.m. Chronic Kidney Disease: Less than 60 mL/min/1.73 square meters End Stage Renal Disease: Less than 15 mL/min/1.73 square meters Globulin 3.8 G/dL Invalid Interpretation Code AO ADM SS Glucose [Mass/Vol] 120 mg/dL High 83 - 110 mg/dL AO ADM SS Hematocrit (Bld) [Volume fraction] 45.6 % Normal 42.0 - 52.0 % AO Workflow SS Hemoglobin (Bld) [Mass/Vol] 15.9 G/dL Normal 14.0 - 18.0 G/dL AO Workflow SS Lymphocyte, Absolute 1.0 103/mcL Normal 0.8 - 3 .9 10^3/mcL AO Workflow SS Lymphocytes/100 WBC (Bld) 19.8 % Normal 10.0 - 50.0 % AO Workflow SS Magnesium [Mass/Vol] 2.0 mg/dL Normal 1.8 - 2 .4 mg/dL AO ADM SS MCH (RBC) [Entitic mass] 31.9 pg High 27.0 - 31.2 pg AO Workflow SS MCHC 34.9 G/dL Normal 31.8 - 35.4 G/dL AO Workflow SS MCV (RBC) [Entitic vol] 91.6 fL Normal 80.0 - 94.0 fL AO Workflow SS Monocyte, Absolute 0.8 103/mcL Normal 0.2 - 1.0 10^3/mcL AO Workflow SS Monocytes/100 WBC (Bld) 16.0 % High 1.7 - 13.0 % AO Workflow SS Natriuretic peptide.B prohormone N-Terminal [Mass/Vol] 2219 pg/mL High 0 - 125 pg/mL AO ADM SS Comment on above: Interpretive Data: N T-proBNP results of less than 300 pg/mL effectively rules out acute congestive heart failure with 99% negative predictive value. Neutrophil, Absolute 3.2 103/mcL Normal 2.9 - 6 .2 10^3/mcL AO Workflow SS Neutrophils/100 WBC (Bld) 61.3 % Normal 37.0 - 80.0 % AO Workflow SS Platelet mean volume (Bld) [Entitic vol] 7.3 fL Low 7.4 - 10.4 fL AO Workflow SS Platelets (Bld) [#/Vol] 183 103/mcL Normal 130 - 400 10^3/mcL AO Workflow SS Potassium [Moles/Vol] 5.2 mmol/L High 3.5 - 5.1 mmol/L AO ADM SS Protein [Mass/Vol] 7.4 G/dL Normal 6.4 - 8.2 G/dL AO ADM SS RBC (Bld) [#/Vol] 4.98 106/mcL Normal 4.04 - 6.1 3 10^6/mcL AO Workflow SS Sodium [Moles/Vol] 140 mmol/L Normal 136 - 145 mmol/L AO ADM SS T3 [Mass/Vol] 211 ng/dL High 60 - 181 ng/dL AH ADM SS TSH Qn 0.01 m[IU]/L Low 0.36 - 3.74 mcIU/mL AO ADM SS Urea nitrogen [Mass/Vol] 32 mg/dL High 7 - 18 mg/dL AO ADM SS Urea nitrogen/Creatinine [Mass ratio] 17 ratio Normal 7 - 27 ratio AO ADM SS WBC (Bld) [#/Vol] 5.3 103/mcL Normal 4.6 - 10.8 10^3/mcL AO Workflow SS MGon 09-03-2023 Magnesium [Mass/Vol] 2.0 mg/dL Normal 1.8-2.4 [facility] ([place]) Comment on above: Performed By: #### T SH, CBC, GFR, FT4, PBNP, ANEU, MG, ADIFF, CMP #### [place] [address] #### T3 #### [address] [address] PBNPon 09-03-2023 Natriuretic peptide B (Bld) [Mass/Vol] 2219 pg/mL High 0-125 [facility] ([place]) Comment on above: Result Comment: NT-p roBNP results of less than 300 pg/mL effectively rules out acute congestive heart failure with 99% negative predictive value. Performed By: #### T SH, CBC, GFR, FT4, PBNP, ANEU, MG, ADIFF, CMP #### [place] [address] #### T3 #### [address] [address] T3on 09-03-2023 Total T3 211 ng/dL High 60-181 [facility] ([place]) Comment on above: Performed By: #### T SH, CBC, GFR, FT4, PBNP, ANEU, MG, ADIFF, CMP #### [address] [address] #### T3 #### [address] [address] TSHon 09-03-2023 TSH Qn 0.01 m[IU]/L Low 0.36-3.74 [facility] [facility] [place] Comment on above: Performed By: #### T SH, CBC, GFR, FT4, PBNP, ANEU, MG, ADIFF, CMP #### [place] [address] #### T3 #### [place] [address] .Auto Diffon 08-30-2023 Basophil, Absolute 0.0 10 3/mcL Normal 0.0-0.3 [facility] ([place]) Comment on above: Performed By: #### T SH, CBC, GFR, FT4, PBNP, ANEU, MG, ADIFF, CMP #### [place] [address] #### T3 #### [place] [address] Basophils/100 WBC (Bld) 0.5 % Normal 0.0-2.5 [facility] ([place]) Comment on above: Performed By: #### T SH, CBC, GFR, FT4, PBNP, ANEU, MG, ADIFF, CMP #### [place] [address] #### T3 #### [place] [address] Eosinophil, Absolute 0.2 10 3/mcL Normal 0.0-0.7 [facility] [place] Comment on above: Performed By: #### T SH, CBC, GFR, FT4, PBNP, ANEU, MG, ADIFF, CMP #### [place] [address] #### T3 #### [place] [id number] Eosinophils/100 WBC (Bld) 3.2 % Normal 0.0-6.0 [facility] ([place]) Comment on above: Performed By: #### T SH, CBC, GFR, FT4, PBNP, ANEU, MG, ADIFF, CMP #### [address] [address] #### T3 #### [address] [address] Lymphocyte, Absolute 1.1 10 3/mcL Normal 0.9-4.3 [facility] [place] Comment on above: Performed By: #### T SH, CBC, GFR, FT4, PBNP, ANEU, MG, ADIFF, CMP #### [address] [address] #### T3 #### [address] [address] Lymphocytes/100 WBC (Bld) 19.3 % Low 20.0-40.0 [facility] ([place]) Comment on above: Performed By: #### T SH, CBC, GFR, FT4, PBNP, ANEU, MG, ADIFF, CMP #### [address] [address] #### T3 #### [address] [address] Monocyte, Absolute 0.9 10 3/mcL Normal 0.1-1.4 [facility] ([place]) Comment on above: Performed By: #### T SH, CBC, GFR, FT4, PBNP, ANEU, MG, ADIFF, CMP #### [place] [address] #### T3 #### [address] [address] Monocytes/100 WBC (Bld) 16.1 % High 2.0-13.0 [facility] ([place]) Comment on above: Performed By: #### T SH, CBC, GFR, FT4, PBNP, ANEU, MG, ADIFF, CMP #### [place] [address] #### T3 #### [address] [address] Neutrophils/100 WBC (Bld) 60.9 % Normal 50.0-75.0 [facility] ([place]) Comment on above: Performed By: #### T SH, CBC, GFR, FT4, PBNP, ANEU, MG, ADIFF, CMP #### [address] [address] #### T3 #### [address] [address] .GFRon 08-30-2023 GFR 47 ml/min/1.73sqm Normal [facility] ([place]) Comment on above: Result Comment: GFR Population mean for , Non- Americans Ages 20-29 = 116 mL/min/1.73 sq.m. Ages 30-39 = 107 mL/min/1.73 sq.m. Ages 40-49 = 99 mL/min/1.73 sq.m. Ages 50-59 = 93 mL/min/1.73 sq.m. Ages 60-69 = 85 mL/min/1.73 sq.m. Ages 70+ = 75 mL/min/1.73 sq.m. Chronic Kidney Disease: Less than 60 mL/min/1.73 square meters End Stage Renal Disease: Less than 15 mL/min/1.73 square meters Performed By: #### T SH, CBC, GFR, FT4, PBNP, ANEU, MG, ADIFF, CMP #### [address] [address] #### T3 #### [address] [address] GFR Non- 39 ml/min/1.73sqm Normal [facility] ([place]) Comment on above: Result Comment: GFR Population mean for , Non- Americans Ages 20-29 = 116 mL/min/1.73 sq.m. Ages 30-39 = 107 mL/min/1.73 sq.m. Ages 40-49 = 99 mL/min/1.73 sq.m. Ages 50-59 = 93 mL/min/1.73 sq.m. Ages 60-69 = 85 mL/min/1.73 sq.m. Ages 70+ = 75 mL/min/1.73 sq.m. Chronic Kidney Disease: Less than 60 mL/min/1.73 square meters End Stage Renal Disease: Less than 15 mL/min/1.73 square meters Performed By: #### T SH, CBC, GFR, FT4, PBNP, ANEU, MG, ADIFF, CMP #### [place] [address] #### T3 #### [address] [address] .NEUABSon 08-30-2023 Neutrophil, Absolute 3.6 10 3/mcL Normal 2.3-8.1 [facility] [place] Comment on above: Performed By: #### T SH, CBC, GFR, FT4, PBNP, ANEU, MG, ADIFF, CMP #### [place] [address] #### T3 #### [place] [id number] BMPon 08-30-2023 BUN/Creatinine Ratio 17.2 ratio Normal 10.0-22.0 [facility] ([place]) Comment on above: Performed By: #### T SH, CBC, GFR, FT4, PBNP, ANEU, MG, ADIFF, CMP #### [place] [address] #### T3 #### [place] [address] Calcium [Mass/Vol] 9.2 mg/dL Normal 8.7-10.4 [facility] ([place]) Comment on above: Performed By: #### T SH, CBC, GFR, FT4, PBNP, ANEU, MG, ADIFF, CMP #### [place] [address] #### T3 #### [place] [address] Chloride [Moles/Vol] 106 mmol/L Normal 98-110 [facility] ([place]) Comment on above: Performed By: #### T SH, CBC, GFR, FT4, PBNP, ANEU, MG, ADIFF, CMP #### [address] [address] #### T3 #### [address] [address] CO2 [Moles/Vol] 28 mmol/L Normal 22-32 [facility] ([place]) Comment on above: Performed By: #### T SH, CBC, GFR, FT4, PBNP, ANEU, MG, ADIFF, CMP #### [address] [address] #### T3 #### [address] [address] Creatinine [Mass/Vol] 1.74 mg/dL High 0.60-1.40 [facility] ([place]) Comment on above: Performed By: #### T SH, CBC, GFR, FT4, PBNP, ANEU, MG, ADIFF, CMP #### [place] [address] #### T3 #### [address] [address] Electrolyte Balance 9.0 mEq/L Normal 4.0-15.0 [facility] ([place]) Comment on above: Performed By: #### T SH, CBC, GFR, FT4, PBNP, ANEU, MG, ADIFF, CMP #### [address] [address] #### T3 #### [address] [address] Glucose [Mass/Vol] 120 mg/dL High 82-115 [facility] ([place]) Comment on above: Performed By: #### T SH, CBC, GFR, FT4, PBNP, ANEU, MG, ADIFF, CMP #### [place] [address] #### T3 #### [address] [address] Potassium [Moles/Vol] 4.3 mmol/L Normal 3.5-5.0 [facility] ([place]) Comment on above: Performed By: #### T SH, CBC, GFR, FT4, PBNP, ANEU, MG, ADIFF, CMP #### [place] [address] #### T3 #### [place] [address] Sodium [Moles/Vol] 143 mmol/L Normal 136-145 [facility] ([place]) Comment on above: Performed By: #### T SH, CBC, GFR, FT4, PBNP, ANEU, MG, ADIFF, CMP #### [place] [address] #### T3 #### [place] [address] Urea nitrogen [Mass/Vol] 30.0 mg/dL High 8.0-22.0 [facility] ([place]) Comment on above: Performed By: #### T SH, CBC, GFR, FT4, PBNP, ANEU, MG, ADIFF, CMP #### [place] [address] #### T3 #### [place] [address] CBCon 08-30-2023 Erythrocyte distribution width (RBC) [Ratio] 15.7 % High 11.5-15.5 [facility] ([place]) Comment on above: Performed By: #### T SH, CBC, GFR, FT4, PBNP, ANEU, MG, ADIFF, CMP #### [place] [address] #### T3 #### [place] [address] Hematocrit (Bld) [Volume fraction] 47.3 % Normal 40.0-52.0 [facility] ([place]) Comment on above: Performed By: #### T SH, CBC, GFR, FT4, PBNP, ANEU, MG, ADIFF, CMP #### [place] [address] #### T3 #### [place] [address] Hgb 15.7 G/dL Normal 13.0-17.5 [facility] ([place]) Comment on above: Performed By: #### T SH, CBC, GFR, FT4, PBNP, ANEU, MG, ADIFF, CMP #### [place] [address] #### T3 #### [address] [address] MCH (RBC) [Entitic mass] 31.4 pg Normal 27.0-33.0 [facility] ([place]) Comment on above: Performed By: #### T SH, CBC, GFR, FT4, PBNP, ANEU, MG, ADIFF, CMP #### [place] [address] #### T3 #### [place] [address] MCHC 33.2 G/dL Normal 32.0-36.0 [facility] ([place]) Comment on above: Performed By: #### T SH, CBC, GFR, FT4, PBNP, ANEU, MG, ADIFF, CMP #### [place] [address] #### T3 #### [place] [address] MCV (RBC) [Entitic vol] 94.4 fL Normal 81.0-100.0 [facility] ([place]) Comment on above: Performed By: #### T SH, CBC, GFR, FT4, PBNP, ANEU, MG, ADIFF, CMP #### [place] [address] #### T3 #### [place] [address] Platelet 167 10 3/mcL Normal 150-450 [facility] ([place]) Comment on above: Performed By: #### T SH, CBC, GFR, FT4, PBNP, ANEU, MG, ADIFF, CMP #### [place] [address] #### T3 #### [place] [address] Platelet mean volume (Bld) [Entitic vol] 7.1 fL Normal 6.4-10.5 [facility] ([place]) Comment on above: Performed By: #### T SH, CBC, GFR, FT4, PBNP, ANEU, MG, ADIFF, CMP #### [place] [address] #### T3 #### [place] [address] RBC 5.01 10 6/mcL Normal 4.50-6.00 [facility] ([place]) Comment on above: Performed By: #### T SH, CBC, GFR, FT4, PBNP, ANEU, MG, ADIFF, CMP #### [place] [address] #### T3 #### [place] [address] WBC 5.9 10 3/mcL Normal 4.5-10.8 [facility] ([place]) Comment on above: Performed By: #### T SH, CBC, GFR, FT4, PBNP, ANEU, MG, ADIFF, CMP #### [place] [address] #### T3 #### [place] [address] LABORATORYOrdered By: SYSTEM SYSTEM on 08-30-2023 Basophils (Bld) [#/Vol] 0.0 103/mcL Normal 0.0 - 0.3 10^3/mcL Workflow SS Basophils/100 WBC (Bld) 0.5 % Normal 0.0 - 2.5 % Workflow SS Calcium [Mass/Vol] 9.2 mg/dL Normal 8.7 - 10. 4 mg/dL ADM SS Chloride [Moles/Vol] 106 mmol/L Normal 98 - 11 0 mEq/L AH ADM SS CO2 [Moles/Vol] 28 mmol/L Normal 22 - 32 mEq/L ADM SS Creatinine [Mass/Vol] 1.74 mg/dL High 0.60 - 1.40 mg/dL ADM SS Electrolyte Balance 9.0 mEq/L Normal 4.0 - 15 .0 mEq/L ADM SS Eosinophils (Bld) [#/Vol] 0.2 103/mcL Normal 0.0 - 0.7 10^3/mcL Workflow SS Eosinophils/100 WBC (Bld) 3.2 % Normal 0.0 - 6.0 % Workflow SS Erythrocyte distribution width (RBC) [Ratio] 15.7 % High 11.5 - 15.5 % Workflow SS GFR/1.73 sq M.predicted among blacks MDRD (S/P/Bld) [Vol rate/Area] 47 ml/min/1.73sqm Invalid Interpretation Code Chemistry S Comment on above: Interpretive Data: GFR Population mean for , Non- Americans Ages 20-29 = 116 mL/min/1.73 sq.m. Ages 30-39 = 107 mL/min/1.73 sq.m. Ages 40-49 = 99 mL/min/1.73 sq.m. Ages 50-59 = 93 mL/min/1.73 sq.m. Ages 60-69 = 85 mL/min/1.73 sq.m. Ages 70+ = 75 mL/min/1.73 sq.m. Chronic Kidney Disease: Less than 60 mL/min/1.73 square meters End Stage Renal Disease: Less than 15 mL/min/1.73 square meters GFR/1.73 sq M.predicted among non-blacks MDRD (S/P/Bld) [Vol rate/Area] 39 ml/min/1.73sqm Invalid Interpretation Code Chemistry S Comment on above: Interpretive Data: GFR Population mean for , Non- Americans Ages 20-29 = 116 mL/min/1.73 sq.m. Ages 30-39 = 107 mL/min/1.73 sq.m. Ages 40-49 = 99 mL/min/1.73 sq.m. Ages 50-59 = 93 mL/min/1.73 sq.m. Ages 60-69 = 85 mL/min/1.73 sq.m. Ages 70+ = 75 mL/min/1.73 sq.m. Chronic Kidney Disease: Less than 60 mL/min/1.73 square meters End Stage Renal Disease: Less than 15 mL/min/1.73 square meters Glucose [Mass/Vol] 120 mg/dL High 82 - 115 mg/dL ADM SS Hematocrit (Bld) [Volume fraction] 47.3 % Normal 40.0 - 52.0 % AH Workflow SS Hemoglobin (Bld) [Mass/Vol] 15.7 G/dL Normal 13.0 - 17.5 G/dL AH Workflow SS Lymphocytes (Bld) [#/Vol] 1.1 103/mcL Normal 0.9 - 4.3 10^3/mcL AH Workflow SS Lymphocytes/100 WBC (Bld) 19.3 % Low 20.0 - 40.0 % AH Workflow SS MCH (RBC) [Entitic mass] 31.4 pg Normal 27.0 - 33.0 pg AH Workflow SS MCHC 33.2 G/dL Normal 32.0 - 36.0 G/dL AH Workflow SS MCV (RBC) [Entitic vol] 94.4 fL Normal 81.0 - 100.0 fL AH Workflow SS Monocytes (Bld) [#/Vol] 0.9 103/mcL Normal 0.1 - 1.4 10^3/mcL AH Workflow SS Monocytes/100 WBC (Bld) 16.1 % High 2.0 - 13.0 % AH Workflow SS Neutrophils (Bld) [#/Vol] 3.6 103/mcL Normal 2.3 - 8.1 10^3/mcL AH Workflow SS Neutrophils/100 WBC (Bld) 60.9 % Normal 50.0 - 75.0 % AH Workflow SS Platelet mean volume (Bld) [Entitic vol] 7.1 fL Normal 6.4 - 10.5 fL AH Workflow SS Platelets (Bld) [#/Vol] 167 103/mcL Normal 150 - 450 10^3/mcL AH Workflow SS Potassium [Moles/Vol] 4.3 mmol/L Normal 3.5 - 5.0 mEq/L AH ADM SS RBC (Bld) [#/Vol] 5.01 106/mcL Normal 4.50 - 6.0 0 10^6/mcL AH Workflow SS Sodium [Moles/Vol] 143 mmol/L Normal 136 - 145 mEq/L AH ADM SS Urea nitrogen [Mass/Vol] 30.0 mg/dL High 8.0 - 22.0 mg/dL AH ADM SS Urea nitrogen/Creatinine [Mass ratio] 17.2 ratio Normal 10.0 - 22.0 ratio AH ADM SS WBC (Bld) [#/Vol] 5.9 103/mcL Normal 4.5 - 10.8 10^3/mcL AH Workflow SS LABORATORYOrdered By: Naga Valentin on 08-30-2023 PT Coag (PPP) [Time] 13.7 s Normal 9.0 - 1 4.4 seconds [facility] Comment on above: Interpretive Data: E ffective 10/25/07, Protime results may be affected by some antibiotics (i.e. Ciprofloxacin, Azithromycin, Bactrim) which may potentiate the action of oral anticoagulants, with further increases in Protime/INR. PT International Ratio 1.2 ratio Invalid Interpretation Code [facility] Comment on above: Interpretive Data: Wendy mcintosh [employer] (CHEST, 1991, 102:[id number]) recommended therapeutic range for oral anticoagulant therapy is: LOW RISK: Prophylaxis of venous thrombosis INR: 2.0-3.0 Treatment of pulmonary embolism 2.0-3.0 Prevention of systemic embolism 2.0-3.0 HIGH RISK: Mechanical prosthetic valves 2.5-3.5 PROon 08-30-2023 INR Coag (PPP) [Relative time] 1.2 {INR} Normal [facility] ([place]) Comment on above: Result Comment: [employer] (CHEST, 1991, 102:[id number]) recommended therapeutic range for oral anticoagulant therapy is: LOW RISK: Prophylaxis of venous thrombosis INR: 2.0-3.0 Treatment of pulmonary embolism 2.0-3.0 Prevention of systemic embolism 2.0-3.0 HIGH RISK: Mechanical prosthetic valves 2.5-3.5 Performed By: #### T SH, CBC, GFR, FT4, PBNP, ANEU, MG, ADIFF, CMP #### [place] [id number] [place], [place] [address] #### T3 #### [address] [address] PT Coag (PPP) [Time] 13.7 s Normal 9.0-14.4 [facility] ([place]) Comment on above: Result Comment: Effe ctive 10/25/07, Protime results may be affected by some antibiotics (i.e. Ciprofloxacin, Azithromycin, Bactrim) which may potentiate the action of oral anticoagulants, with further increases in Protime/INR. Performed By: #### T SH, CBC, GFR, FT4, PBNP, ANEU, MG, ADIFF, CMP #### [address] [address] #### T3 #### [address] [address] .Auto Diffon 08-05-2023 Basophil, Absolute 0.0 10 3/mcL Normal 0.0-0.2 [facility] ([place]) Comment on above: Performed By: #### T SH, CBC, GFR, FT4, PBNP, ANEU, MG, ADIFF, CMP #### [place] [address] #### T3 #### [address] [address] Basophils/100 WBC (Bld) 0.4 % Normal 0.0-2.5 [facility] ([place]) Comment on above: Performed By: #### T SH, CBC, GFR, FT4, PBNP, ANEU, MG, ADIFF, CMP #### [place] [address] #### T3 #### [address] [address] Eosinophil, Absolute 0.2 10 3/mcL Normal 0.0-0.4 [facility] [place] Comment on above: Performed By: #### T SH, CBC, GFR, FT4, PBNP, ANEU, MG, ADIFF, CMP #### [place] [address] #### T3 #### [address] [address] Eosinophils/100 WBC (Bld) 4.7 % Normal 0.0-7.0 [facility] ([place]) Comment on above: Performed By: #### T SH, CBC, GFR, FT4, PBNP, ANEU, MG, ADIFF, CMP #### [place] [address] #### T3 #### [place] [address] Lymphocyte, Absolute 0.9 10 3/mcL Normal 0.8-3.9 [facility] [place] Comment on above: Performed By: #### T SH, CBC, GFR, FT4, PBNP, ANEU, MG, ADIFF, CMP #### [address] [address] #### T3 #### [address] [address] Lymphocytes/100 WBC (Bld) 20.2 % Normal 10.0-50.0 [facility] ([place]) Comment on above: Performed By: #### T SH, CBC, GFR, FT4, PBNP, ANEU, MG, ADIFF, CMP #### [address] [address] #### T3 #### [address] [address] Monocyte, Absolute 0.6 10 3/mcL Normal 0.2-1.0 [facility] ([place]) Comment on above: Performed By: #### T SH, CBC, GFR, FT4, PBNP, ANEU, MG, ADIFF, CMP #### [address] [address] #### T3 #### [address] [address] Monocytes/100 WBC (Bld) 13.8 % High 1.7-13.0 [facility] ([place]) Comment on above: Performed By: #### T SH, CBC, GFR, FT4, PBNP, ANEU, MG, ADIFF, CMP #### [address] [address] #### T3 #### [address] [address] Neutrophils/100 WBC (Bld) 60.9 % Normal 37.0-80.0 [facility] ([place]) Comment on above: Performed By: #### T SH, CBC, GFR, FT4, PBNP, ANEU, MG, ADIFF, CMP #### [address] [address] #### T3 #### [address] [address] .GFRon 08-05-2023 GFR 46 ml/min/1.73sqm Normal [facility] ([place]) Comment on above: Result Comment: GFR Population mean for , Non- Americans Ages 20-29 = 116 mL/min/1.73 sq.m. Ages 30-39 = 107 mL/min/1.73 sq.m. Ages 40-49 = 99 mL/min/1.73 sq.m. Ages 50-59 = 93 mL/min/1.73 sq.m. Ages 60-69 = 85 mL/min/1.73 sq.m. Ages 70+ = 75 mL/min/1.73 sq.m. Chronic Kidney Disease: Less than 60 mL/min/1.73 square meters End Stage Renal Disease: Less than 15 mL/min/1.73 square meters Performed By: #### T SH, CBC, GFR, FT4, PBNP, ANEU, MG, ADIFF, CMP #### [address] [address] #### T3 #### [address] [address] GFR Non- 38 ml/min/1.73sqm Normal [facility] ([place]) Comment on above: Result Comment: GFR Population mean for , Non- Americans Ages 20-29 = 116 mL/min/1.73 sq.m. Ages 30-39 = 107 mL/min/1.73 sq.m. Ages 40-49 = 99 mL/min/1.73 sq.m. Ages 50-59 = 93 mL/min/1.73 sq.m. Ages 60-69 = 85 mL/min/1.73 sq.m. Ages 70+ = 75 mL/min/1.73 sq.m. Chronic Kidney Disease: Less than 60 mL/min/1.73 square meters End Stage Renal Disease: Less than 15 mL/min/1.73 square meters Performed By: #### T SH, CBC, GFR, FT4, PBNP, ANEU, MG, ADIFF, CMP #### [address] [address] #### T3 #### [address] [address] .NEUABSon 08-05-2023 Neutrophil, Absolute 2.6 10 3/mcL Low 2.9-6.2 [facility] [place] Comment on above: Performed By: #### T SH, CBC, GFR, FT4, PBNP, ANEU, MG, ADIFF, CMP #### [address] [address] #### T3 #### [address] [address] BMPon 08-05-2023 BUN/Creatinine Ratio 17 ratio Normal 7-27 [facility] ([place]) Comment on above: Performed By: #### T SH, CBC, GFR, FT4, PBNP, ANEU, MG, ADIFF, CMP #### [address] [address] #### T3 #### [place] [address] Calcium [Mass/Vol] 9.1 mg/dL Normal 8.4-10.2 [facility] ([place]) Comment on above: Performed By: #### T SH, CBC, GFR, FT4, PBNP, ANEU, MG, ADIFF, CMP #### [address] [address] #### T3 #### [place] [address] Chloride [Moles/Vol] 105 mmol/L Normal 98-107 [facility] ([place]) Comment on above: Performed By: #### T SH, CBC, GFR, FT4, PBNP, ANEU, MG, ADIFF, CMP #### [place] [address] #### T3 #### [place] [address] CO2 [Moles/Vol] 26 mmol/L Normal 23-31 [facility] ([place]) Comment on above: Performed By: #### T SH, CBC, GFR, FT4, PBNP, ANEU, MG, ADIFF, CMP #### [place] [address] #### T3 #### [place] [address] Creatinine [Mass/Vol] 1.78 mg/dL High 0.70-1.30 [facility] ([place]) Comment on above: Performed By: #### T SH, CBC, GFR, FT4, PBNP, ANEU, MG, ADIFF, CMP #### [place] [address] #### T3 #### [place] [address] Electrolyte Balance 11.0 mEq/L Normal 4.0-15.0 [facility] ([place]) Comment on above: Performed By: #### T SH, CBC, GFR, FT4, PBNP, ANEU, MG, ADIFF, CMP #### [place] [address] #### T3 #### [place] [address] Glucose [Mass/Vol] 106 mg/dL Normal 83-110 [facility] ([place]) Comment on above: Performed By: #### T SH, CBC, GFR, FT4, PBNP, ANEU, MG, ADIFF, CMP #### [place] [address] #### T3 #### [place] [address] Potassium [Moles/Vol] 4.8 mmol/L Normal 3.5-5.1 [facility] ([place]) Comment on above: Performed By: #### T SH, CBC, GFR, FT4, PBNP, ANEU, MG, ADIFF, CMP #### [place] [address] #### T3 #### [place] [address] Sodium [Moles/Vol] 142 mmol/L Normal 136-145 [facility] ([place]) Comment on above: Performed By: #### T SH, CBC, GFR, FT4, PBNP, ANEU, MG, ADIFF, CMP #### [place] [address] #### T3 #### [place] [address] Urea nitrogen [Mass/Vol] 30 mg/dL High 7-18 [facility] ([place]) Comment on above: Performed By: #### T SH, CBC, GFR, FT4, PBNP, ANEU, MG, ADIFF, CMP #### [place] [address] #### T3 #### [place] [address] CBCon 08-05-2023 Erythrocyte distribution width (RBC) [Ratio] 16.0 % High 11.5-14.5 [facility] ([place]) Comment on above: Performed By: #### T SH, CBC, GFR, FT4, PBNP, ANEU, MG, ADIFF, CMP #### [place] [address] #### T3 #### [place] [address] Hematocrit (Bld) [Volume fraction] 43.5 % Normal 42.0-52.0 [facility] ([place]) Comment on above: Performed By: #### T SH, CBC, GFR, FT4, PBNP, ANEU, MG, ADIFF, CMP #### [place] [address] #### T3 #### [place] [address] Hgb 14.7 G/dL Normal 14.0-18.0 [facility] ([place]) Comment on above: Performed By: #### T SH, CBC, GFR, FT4, PBNP, ANEU, MG, ADIFF, CMP #### [place] [address] #### T3 #### [place] [address] MCH (RBC) [Entitic mass] 31.7 pg High 27.0-31.2 [facility] ([place]) Comment on above: Performed By: #### T SH, CBC, GFR, FT4, PBNP, ANEU, MG, ADIFF, CMP #### [place] [address] #### T3 #### [place] [address] MCHC 33.9 G/dL Normal 31.8-35.4 [facility] ([place]) Comment on above: Performed By: #### T SH, CBC, GFR, FT4, PBNP, ANEU, MG, ADIFF, CMP #### [place] [address] #### T3 #### [place] [address] MCV (RBC) [Entitic vol] 93.5 fL Normal 80.0-94.0 [facility] ([place]) Comment on above: Performed By: #### T SH, CBC, GFR, FT4, PBNP, ANEU, MG, ADIFF, CMP #### [place] [address] #### T3 #### [place] [address] Platelet 153 10 3/mcL Normal 130-400 [facility] ([place]) Comment on above: Performed By: #### T SH, CBC, GFR, FT4, PBNP, ANEU, MG, ADIFF, CMP #### [place] [address] #### T3 #### [place] [address] Platelet mean volume (Bld) [Entitic vol] 7.3 fL Low 7.4-10.4 [facility] ([place]) Comment on above: Performed By: #### T SH, CBC, GFR, FT4, PBNP, ANEU, MG, ADIFF, CMP #### [place] [address] #### T3 #### [place] [address] RBC 4.66 10 6/mcL Normal 4.04-6.13 [facility] ([place]) Comment on above: Performed By: #### T SH, CBC, GFR, FT4, PBNP, ANEU, MG, ADIFF, CMP #### [address] [address] #### T3 #### [address] [address] WBC 4.3 10 3/mcL Low 4.6-10.8 [facility] ([place]) Comment on above: Performed By: #### T SH, CBC, GFR, FT4, PBNP, ANEU, MG, ADIFF, CMP #### [place] [address] #### T3 #### [place] [address] CMPon 08-05-2023 Albumin Level 3.7 G/dL Normal 3.4-4.8 [facility] ([place]) Comment on above: Performed By: #### T SH, CBC, GFR, FT4, PBNP, ANEU, MG, ADIFF, CMP #### [place] [address] #### T3 #### [place] [address] Albumin/Globulin [Mass ratio] 1.1 {ratio} Normal 1.1-2.5 [facility] ([place]) Comment on above: Performed By: #### T SH, CBC, GFR, FT4, PBNP, ANEU, MG, ADIFF, CMP #### [address] [address] #### T3 #### [address] [address] ALP [Catalytic activity/Vol] 161 U/L High 40-135 [facility] ([place]) Comment on above: Performed By: #### T SH, CBC, GFR, FT4, PBNP, ANEU, MG, ADIFF, CMP #### [place] [address] #### T3 #### [address] [address] ALT [Catalytic activity/Vol] 27 U/L Normal 16-63 [facility] ([place]) Comment on above: Performed By: #### T SH, CBC, GFR, FT4, PBNP, ANEU, MG, ADIFF, CMP #### [address] [address] #### T3 #### [address] [address] AST [Catalytic activity/Vol] 26 U/L Normal 10-40 [facility] ([place]) Comment on above: Performed By: #### T SH, CBC, GFR, FT4, PBNP, ANEU, MG, ADIFF, CMP #### [place] [address] #### T3 #### [place] [address] Bili Total 0.9 mg/dL Normal 0.2-1.0 [facility] ([place]) Comment on above: Result Comment: Use of this assay is not recommended for patients undergoing treatment with eltrombopag due to the potential for falsely elevated results. Performed By: #### T SH, CBC, GFR, FT4, PBNP, ANEU, MG, ADIFF, CMP #### [place] [address] #### T3 #### [place] [address] BUN/Creatinine Ratio 16 ratio Normal 7-27 [facility] ([place]) Comment on above: Performed By: #### T SH, CBC, GFR, FT4, PBNP, ANEU, MG, ADIFF, CMP #### [place] [address] #### T3 #### [place] [address] Calcium [Mass/Vol] 9.2 mg/dL Normal 8.4-10.2 [facility] ([place]) Comment on above: Performed By: #### T SH, CBC, GFR, FT4, PBNP, ANEU, MG, ADIFF, CMP #### [place] [address] #### T3 #### [place] [address] Chloride [Moles/Vol] 106 mmol/L Normal 98-107 [facility] ([place]) Comment on above: Performed By: #### T SH, CBC, GFR, FT4, PBNP, ANEU, MG, ADIFF, CMP #### [place] [address] #### T3 #### [place] [address] CO2 [Moles/Vol] 26 mmol/L Normal 23-31 [facility] ([place]) Comment on above: Performed By: #### T SH, CBC, GFR, FT4, PBNP, ANEU, MG, ADIFF, CMP #### [place] [address] #### T3 #### [place] [address] Creatinine [Mass/Vol] 1.84 mg/dL High 0.70-1.30 [facility] ([place]) Comment on above: Performed By: #### T SH, CBC, GFR, FT4, PBNP, ANEU, MG, ADIFF, CMP #### [place] [address] #### T3 #### [place] [address] Electrolyte Balance 11.0 mEq/L Normal 4.0-15.0 [facility] ([place]) Comment on above: Performed By: #### T SH, CBC, GFR, FT4, PBNP, ANEU, MG, ADIFF, CMP #### [place] [address] #### T3 #### [place] [address] Globulin 3.3 G/dL Normal [facility] ([place]) Comment on above: Performed By: #### T SH, CBC, GFR, FT4, PBNP, ANEU, MG, ADIFF, CMP #### [address] [address] #### T3 #### [address] [address] Glucose [Mass/Vol] 109 mg/dL Normal 83-110 [facility] ([place]) Comment on above: Performed By: #### T SH, CBC, GFR, FT4, PBNP, ANEU, MG, ADIFF, CMP #### [place] [address] #### T3 #### [address] [address] Potassium [Moles/Vol] 4.8 mmol/L Normal 3.5-5.1 [facility] ([place]) Comment on above: Performed By: #### T SH, CBC, GFR, FT4, PBNP, ANEU, MG, ADIFF, CMP #### [place] [address] #### T3 #### [address] [address] Sodium [Moles/Vol] 143 mmol/L Normal 136-145 [facility] ([place]) Comment on above: Performed By: #### T SH, CBC, GFR, FT4, PBNP, ANEU, MG, ADIFF, CMP #### [address] [address] #### T3 #### [address] [address] Total Protein 7.0 G/dL Normal 6.4-8.2 [facility] ([place]) Comment on above: Performed By: #### T SH, CBC, GFR, FT4, PBNP, ANEU, MG, ADIFF, CMP #### [place] [address] #### T3 #### [address] [address] Urea nitrogen [Mass/Vol] 29 mg/dL High 7-18 [facility] ([place]) Comment on above: Performed By: #### T SH, CBC, GFR, FT4, PBNP, ANEU, MG, ADIFF, CMP #### [place] [address] [place], [place] [address] #### T3 #### [address] [address] LABORATORYOrdered By: SYSTEM SYSTEM on 08-05-2023 Albumin BCP dye [Mass/Vol] 3.7 G/dL Normal 3.4 - 4.8 G/dL AO ADM SS Albumin/Globulin [Mass ratio] 1.1 {ratio} Normal 1.1 - 2.5 ratio AO ADM SS ALP [Catalytic activity/Vol] 161 U/L High 40 - 135 U/L AO ADM SS ALT With P-5'-P [Catalytic activity/Vol] 27 U/L Normal 16 - 63 U/L AO ADM SS AST With P-5'-P [Catalytic activity/Vol] 26 U/L Normal 10 - 40 U/L AO ADM SS Basophil, Absolute 0.0 103/mcL Normal 0.0 - 0.2 10^3/mcL AO Workflow SS Basophils/100 WBC (Bld) 0.4 % Normal 0.0 - 2.5 % AO Workflow SS Bilirubin [Mass/Vol] 0.9 mg/dL Normal 0.2 - 1 .0 mg/dL AO ADM SS Comment on above: Interpretive Data: U se of this assay is not recommended for patients undergoing treatment with eltrombopag due to the potential for falsely elevated results. Calcium [Mass/Vol] 9.2 mg/dL Normal 8.4 - 10. 2 mg/dL AO ADM SS Calcium [Mass/Vol] 9.1 mg/dL Normal 8.4 - 10. 2 mg/dL AO ADM SS Chloride [Moles/Vol] 106 mmol/L Normal 98 - 10 7 mmol/L AO ADM SS Chloride [Moles/Vol] 105 mmol/L Normal 98 - 10 7 mmol/L AO ADM SS Creatinine [Mass/Vol] 1.84 mg/dL High 0.70 - 1.30 mg/dL AO ADM SS Creatinine [Mass/Vol] 1.78 mg/dL High 0.70 - 1.30 mg/dL AO ADM SS Eosinophil, Absolute 0.2 103/mcL Normal 0.0 - 0 .4 10^3/mcL AO Workflow SS Eosinophils/100 WBC (Bld) 4.7 % Normal 0.0 - 7.0 % AO Workflow SS Erythrocyte distribution width (RBC) [Ratio] 16.0 % High 11.5 - 14.5 % AO Workflow SS GFR/1.73 sq M.predicted among blacks MDRD (S/P/Bld) [Vol rate/Area] 46 ml/min/1.73sqm Invalid Interpretation Code AO Chemistry S Comment on above: Interpretive Data: GFR Population mean for , Non- Americans Ages 20-29 = 116 mL/min/1.73 sq.m. Ages 30-39 = 107 mL/min/1.73 sq.m. Ages 40-49 = 99 mL/min/1.73 sq.m. Ages 50-59 = 93 mL/min/1.73 sq.m. Ages 60-69 = 85 mL/min/1.73 sq.m. Ages 70+ = 75 mL/min/1.73 sq.m. Chronic Kidney Disease: Less than 60 mL/min/1.73 square meters End Stage Renal Disease: Less than 15 mL/min/1.73 square meters GFR/1.73 sq M.predicted among non-blacks MDRD (S/P/Bld) [Vol rate/Area] 38 ml/min/1.73sqm Invalid Interpretation Code AO Chemistry S Comment on above: Interpretive Data: GFR Population mean for , Non- Americans Ages 20-29 = 116 mL/min/1.73 sq.m. Ages 30-39 = 107 mL/min/1.73 sq.m. Ages 40-49 = 99 mL/min/1.73 sq.m. Ages 50-59 = 93 mL/min/1.73 sq.m. Ages 60-69 = 85 mL/min/1.73 sq.m. Ages 70+ = 75 mL/min/1.73 sq.m. Chronic Kidney Disease: Less than 60 mL/min/1.73 square meters End Stage Renal Disease: Less than 15 mL/min/1.73 square meters Globulin 3.3 G/dL Invalid Interpretation Code AO ADM SS Glucose [Mass/Vol] 109 mg/dL Normal 83 - 110 mg/dL AO ADM SS Glucose [Mass/Vol] 106 mg/dL Normal 83 - 110 mg/dL AO ADM SS Hematocrit (Bld) [Volume fraction] 43.5 % Normal 42.0 - 52.0 % AO Workflow SS Hemoglobin (Bld) [Mass/Vol] 14.7 G/dL Normal 14.0 - 18.0 G/dL AO Workflow SS Lymphocyte, Absolute 0.9 103/mcL Normal 0.8 - 3 .9 10^3/mcL AO Workflow SS Lymphocytes/100 WBC (Bld) 20.2 % Normal 10.0 - 50.0 % AO Workflow SS MCH (RBC) [Entitic mass] 31.7 pg High 27.0 - 31.2 pg AO Workflow SS MCHC 33.9 G/dL Normal 31.8 - 35.4 G/dL AO Workflow SS MCV (RBC) [Entitic vol] 93.5 fL Normal 80.0 - 94.0 fL AO Workflow SS Monocyte, Absolute 0.6 103/mcL Normal 0.2 - 1.0 10^3/mcL AO Workflow SS Monocytes/100 WBC (Bld) 13.8 % High 1.7 - 13.0 % AO Workflow SS Natriuretic peptide.B prohormone N-Terminal [Mass/Vol] 5470 pg/mL High 0 - 125 pg/mL AO ADM SS Comment on above: Interpretive Data: N T-proBNP results of less than 300 pg/mL effectively rules out acute congestive heart failure with 99% negative predictive value. Neutrophil, Absolute 2.6 103/mcL Low 2.9 - 6 .2 10^3/mcL AO Workflow SS Neutrophils/100 WBC (Bld) 60.9 % Normal 37.0 - 80.0 % AO Workflow SS Platelet mean volume (Bld) [Entitic vol] 7.3 fL Low 7.4 - 10.4 fL AO Workflow SS Platelets (Bld) [#/Vol] 153 103/mcL Normal 130 - 400 10^3/mcL AO Workflow SS Protein [Mass/Vol] 7.0 G/dL Normal 6.4 - 8.2 G/dL AO ADM SS RBC (Bld) [#/Vol] 4.66 106/mcL Normal 4.04 - 6.1 3 10^6/mcL AO Workflow SS Sodium [Moles/Vol] 143 mmol/L Normal 136 - 145 mmol/L AO ADM SS Sodium [Moles/Vol] 142 mmol/L Normal 136 - 145 mmol/L AO ADM SS TSH Qn 0.83 m[IU]/L Normal 0.36 - 3.74 mcIU/mL AO ADM SS Urea nitrogen [Mass/Vol] 29 mg/dL High 7 - 18 mg/dL AO ADM SS Urea nitrogen [Mass/Vol] 30 mg/dL High 7 - 18 mg/dL AO ADM SS Urea nitrogen/Creatinine [Mass ratio] 16 ratio Normal 7 - 27 ratio AO ADM SS Urea nitrogen/Creatinine [Mass ratio] 17 ratio Normal 7 - 27 ratio AO ADM SS WBC (Bld) [#/Vol] 4.3 103/mcL Low 4.6 - 10.8 10^3/mcL AO Workflow SS LABORATORYOrdered By: Jean Arechiga on 08-05-2023 Cholesterol [Mass/Vol] 133 mg/dL Normal 0 - 200 mg/dL AO ADM SS Comment on above: Interpretive Data: C holesterol Reference Interval: Less than 200 Desirable 200-239 Borderline high risk 240 and above High risk Cholesterol in HDL [Mass/Vol] 35 mg/dL Low 40 - 60 mg/dL AO ADM SS Cholesterol in LDL [Mass/Vol] 76 mg/dL Normal 0 - 130 mg/dL AO ADM SS Triglyceride [Mass/Vol] 111 mg/dL Normal 0 - 150 mg/dL AO ADM SS Comment on above: Interpretive Data: T riglyceride Reference Interval: Less than 150 Normal 150-199 Borderline high risk 200-499 High risk 500 or higher Very high risk LIPIDon 08-05-2023 Cholesterol [Mass/Vol] 133 mg/dL Normal 0-200 [facility] ([place]) Comment on above: Result Comment: Chol esterol Reference Interval: Less than 200 Desirable 200-239 Borderline high risk 240 and above High risk Performed By: #### T SH, CBC, GFR, FT4, PBNP, ANEU, MG, ADIFF, CMP #### [address] [address] #### T3 #### [address] [address] Cholesterol in HDL [Mass/Vol] 35 mg/dL Low 40-60 [facility] ([place]) Comment on above: Performed By: #### T SH, CBC, GFR, FT4, PBNP, ANEU, MG, ADIFF, CMP #### [address] [address] #### T3 #### [address] [address] Cholesterol in LDL [Mass/Vol] 76 mg/dL Normal 0-130 [facility] ([place]) Comment on above: Performed By: #### T SH, CBC, GFR, FT4, PBNP, ANEU, MG, ADIFF, CMP #### [address] [address] #### T3 #### [address] [address] Triglyceride [Mass/Vol] 111 mg/dL Normal 0-150 [facility] ([place]) Comment on above: Result Comment: Trig lyceride Reference Interval: Less than 150 Normal 150-199 Borderline high risk 200-499 High risk 500 or higher Very high risk Performed By: #### T SH, CBC, GFR, FT4, PBNP, ANEU, MG, ADIFF, CMP #### [address] [address] #### T3 #### [place] [address] Laboratory - Chemistry and C hemistry - challengeOrdered By: SYSTEM SYSTEM on 08-05-2023 CO2 [Moles/Vol] 26 mmol/L Normal 23 - 31 mmol/L AO ADM SS Potassium [Moles/Vol] 4.8 mmol/L Normal 3.5 - 5.1 mmol/L AO ADM SS No Panel InformationOrdered By: SYSTEM SYSTEM on 08-05-2023 Electrolyte Balance 11.0 mEq/L Normal 4.0 - 15 .0 mEq/L AO ADM SS PBNPon 08-05-2023 Natriuretic peptide B (Bld) [Mass/Vol] 5470 pg/mL High 0-125 [facility] ([place]) Comment on above: Result Comment: NT-p roBNP results of less than 300 pg/mL effectively rules out acute congestive heart failure with 99% negative predictive value. Performed By: #### T SH, CBC, GFR, FT4, PBNP, ANEU, MG, ADIFF, CMP #### [address] [address] #### T3 #### [address] [address] TSHon 08-05-2023 TSH Qn 0.83 m[IU]/L Normal 0.36-3.74 [facility] ([place]) Comment on above: Performed By: #### T SH, CBC, GFR, FT4, PBNP, ANEU, MG, ADIFF, CMP #### [address] [address] #### T3 #### [address] [address] .GFRon 06-18-2023 GFR 45 ml/min/1.73sqm Normal [facility] ([place]) Comment on above: Result Comment: GFR Population mean for , Non- Americans Ages 20-29 = 116 mL/min/1.73 sq.m. Ages 30-39 = 107 mL/min/1.73 sq.m. Ages 40-49 = 99 mL/min/1.73 sq.m. Ages 50-59 = 93 mL/min/1.73 sq.m. Ages 60-69 = 85 mL/min/1.73 sq.m. Ages 70+ = 75 mL/min/1.73 sq.m. Chronic Kidney Disease: Less than 60 mL/min/1.73 square meters End Stage Renal Disease: Less than 15 mL/min/1.73 square meters Performed By: #### T SH, CBC, GFR, FT4, PBNP, ANEU, MG, ADIFF, CMP #### [address] [address] #### T3 #### [address] [address] GFR Non- 37 ml/min/1.73sqm Normal [facility] ([place]) Comment on above: Result Comment: GFR Population mean for , Non- Americans Ages 20-29 = 116 mL/min/1.73 sq.m. Ages 30-39 = 107 mL/min/1.73 sq.m. Ages 40-49 = 99 mL/min/1.73 sq.m. Ages 50-59 = 93 mL/min/1.73 sq.m. Ages 60-69 = 85 mL/min/1.73 sq.m. Ages 70+ = 75 mL/min/1.73 sq.m. Chronic Kidney Disease: Less than 60 mL/min/1.73 square meters End Stage Renal Disease: Less than 15 mL/min/1.73 square meters Performed By: #### T SH, CBC, GFR, FT4, PBNP, ANEU, MG, ADIFF, CMP #### [address] [address] #### T3 #### [address] [address] BMPon 06-18-2023 BUN/Creatinine Ratio 17.9 ratio Normal 10.0-22.0 [facility] ([place]) Comment on above: Performed By: #### T SH, CBC, GFR, FT4, PBNP, ANEU, MG, ADIFF, CMP #### [place] [address] #### T3 #### [address] [address] Calcium [Mass/Vol] 9.0 mg/dL Normal 8.7-10.4 [facility] ([place]) Comment on above: Performed By: #### T SH, CBC, GFR, FT4, PBNP, ANEU, MG, ADIFF, CMP #### [place] [address] #### T3 #### [address] [address] Chloride [Moles/Vol] 108 mmol/L Normal 98-110 [facility] ([place]) Comment on above: Performed By: #### T SH, CBC, GFR, FT4, PBNP, ANEU, MG, ADIFF, CMP #### [address] [address] #### T3 #### [address] [address] CO2 [Moles/Vol] 26 mmol/L Normal 22-32 [facility] ([place]) Comment on above: Performed By: #### T SH, CBC, GFR, FT4, PBNP, ANEU, MG, ADIFF, CMP #### [place] [address] #### T3 #### [address] [address] Creatinine [Mass/Vol] 1.79 mg/dL High 0.60-1.40 [facility] ([place]) Comment on above: Performed By: #### T SH, CBC, GFR, FT4, PBNP, ANEU, MG, ADIFF, CMP #### [place] [address] #### T3 #### [address] [address] Electrolyte Balance 6.0 mEq/L Normal 4.0-15.0 [facility] ([place]) Comment on above: Performed By: #### T SH, CBC, GFR, FT4, PBNP, ANEU, MG, ADIFF, CMP #### [place] [address] #### T3 #### [place] [address] Glucose [Mass/Vol] 105 mg/dL Normal 82-115 [facility] ([place]) Comment on above: Performed By: #### T SH, CBC, GFR, FT4, PBNP, ANEU, MG, ADIFF, CMP #### [place] [address] #### T3 #### [place] [address] Potassium [Moles/Vol] 4.4 mmol/L Normal 3.5-5.0 [facility] ([place]) Comment on above: Performed By: #### T SH, CBC, GFR, FT4, PBNP, ANEU, MG, ADIFF, CMP #### [place] [address] #### T3 #### [place] [id number] Sodium [Moles/Vol] 140 mmol/L Normal 136-145 [facility] ([place]) Comment on above: Performed By: #### T SH, CBC, GFR, FT4, PBNP, ANEU, MG, ADIFF, CMP #### [address] [address] #### T3 #### [address] [address] Urea nitrogen [Mass/Vol] 32.0 mg/dL High 8.0-22.0 [facility] ([place]) Comment on above: Performed By: #### T SH, CBC, GFR, FT4, PBNP, ANEU, MG, ADIFF, CMP #### [address] [address] #### T3 #### [address] [address] LABORATORYOrdered By: SYSTEM SYSTEM on 06-18-2023 Calcium [Mass/Vol] 9.0 mg/dL Normal 8.7 - 10. 4 mg/dL ADM SS Chloride [Moles/Vol] 108 mmol/L Normal 98 - 11 0 mEq/L ADM SS CO2 [Moles/Vol] 26 mmol/L Normal 22 - 32 mEq/L ADM SS Creatinine [Mass/Vol] 1.79 mg/dL High 0.60 - 1.40 mg/dL ADM SS Electrolyte Balance 6.0 mEq/L Normal 4.0 - 15 .0 mEq/L ADM SS GFR/1.73 sq M.predicted among blacks MDRD (S/P/Bld) [Vol rate/Area] 45 ml/min/1.73sqm Invalid Interpretation Code Chemistry S Comment on above: Interpretive Data: GFR Population mean for , Non- Americans Ages 20-29 = 116 mL/min/1.73 sq.m. Ages 30-39 = 107 mL/min/1.73 sq.m. Ages 40-49 = 99 mL/min/1.73 sq.m. Ages 50-59 = 93 mL/min/1.73 sq.m. Ages 60-69 = 85 mL/min/1.73 sq.m. Ages 70+ = 75 mL/min/1.73 sq.m. Chronic Kidney Disease: Less than 60 mL/min/1.73 square meters End Stage Renal Disease: Less than 15 mL/min/1.73 square meters GFR/1.73 sq M.predicted among non-blacks MDRD (S/P/Bld) [Vol rate/Area] 37 ml/min/1.73sqm Invalid Interpretation Code Chemistry S Comment on above: Interpretive Data: GFR Population mean for , Non- Americans Ages 20-29 = 116 mL/min/1.73 sq.m. Ages 30-39 = 107 mL/min/1.73 sq.m. Ages 40-49 = 99 mL/min/1.73 sq.m. Ages 50-59 = 93 mL/min/1.73 sq.m. Ages 60-69 = 85 mL/min/1.73 sq.m. Ages 70+ = 75 mL/min/1.73 sq.m. Chronic Kidney Disease: Less than 60 mL/min/1.73 square meters End Stage Renal Disease: Less than 15 mL/min/1.73 square meters Glucose [Mass/Vol] 105 mg/dL Normal 82 - 115 mg/dL ADM SS Potassium [Moles/Vol] 4.4 mmol/L Normal 3.5 - 5.0 mEq/L ADM SS Sodium [Moles/Vol] 140 mmol/L Normal 136 - 145 mEq/L ADM SS Urea nitrogen [Mass/Vol] 32.0 mg/dL High 8.0 - 22.0 mg/dL ADM SS Urea nitrogen/Creatinine [Mass ratio] 17.9 ratio Normal 10.0 - 22.0 ratio ADM SS .Auto Diffon 02-09-2023 Basophil, Absolute 0.0 10 3/mcL Normal 0.0-0.2 [facility] ([place]) Comment on above: Performed By: #### T SH, CBC, GFR, FT4, PBNP, ANEU, MG, ADIFF, CMP #### [address] [address] #### T3 #### [address] [address] Basophils/100 WBC (Bld) 0.6 % Normal 0.0-2.5 [facility] ([place]) Comment on above: Performed By: #### T SH, CBC, GFR, FT4, PBNP, ANEU, MG, ADIFF, CMP #### [address] [address] #### T3 #### [address] [address] Eosinophil, Absolute 0.2 10 3/mcL Normal 0.0-0.4 [facility] ([place] Comment on above: Performed By: #### T SH, CBC, GFR, FT4, PBNP, ANEU, MG, ADIFF, CMP #### [address] [address] #### T3 #### [address] [address] Eosinophils/100 WBC (Bld) 4.3 % Normal 0.0-7.0 [facility] ([place]) Comment on above: Performed By: #### T SH, CBC, GFR, FT4, PBNP, ANEU, MG, ADIFF, CMP #### [address] [address] #### T3 #### [address] [address] Lymphocyte, Absolute 0.8 10 3/mcL Normal 0.8-3.9 [facility] [place] Comment on above: Performed By: #### T SH, CBC, GFR, FT4, PBNP, ANEU, MG, ADIFF, CMP #### [address] [address] #### T3 #### [address] [address] Lymphocytes/100 WBC (Bld) 17.6 % Normal 10.0-50.0 [facility] ([place]) Comment on above: Performed By: #### T SH, CBC, GFR, FT4, PBNP, ANEU, MG, ADIFF, CMP #### [address] [address] #### T3 #### [address] [address] Monocyte, Absolute 0.6 10 3/mcL Normal 0.2-1.0 [facility] ([place]) Comment on above: Performed By: #### T SH, CBC, GFR, FT4, PBNP, ANEU, MG, ADIFF, CMP #### [address] [address] #### T3 #### [address] [address] Monocytes/100 WBC (Bld) 12.3 % Normal 1.7-13.0 [facility] ([place]) Comment on above: Performed By: #### T SH, CBC, GFR, FT4, PBNP, ANEU, MG, ADIFF, CMP #### [address] [address] #### T3 #### [address] [address] Neutrophils/100 WBC (Bld) 65.2 % Normal 37.0-80.0 [facility] ([place]) Comment on above: Performed By: #### T SH, CBC, GFR, FT4, PBNP, ANEU, MG, ADIFF, CMP #### [address] [address] #### T3 #### [address] [address] .GFRon 02-09-2023 GFR 48 ml/min/1.73sqm Normal [facility] ([place]) Comment on above: Result Comment: GFR Population mean for , Non- Americans Ages 20-29 = 116 mL/min/1.73 sq.m. Ages 30-39 = 107 mL/min/1.73 sq.m. Ages 40-49 = 99 mL/min/1.73 sq.m. Ages 50-59 = 93 mL/min/1.73 sq.m. Ages 60-69 = 85 mL/min/1.73 sq.m. Ages 70+ = 75 mL/min/1.73 sq.m. Chronic Kidney Disease: Less than 60 mL/min/1.73 square meters End Stage Renal Disease: Less than 15 mL/min/1.73 square meters Performed By: #### T SH, CBC, GFR, FT4, PBNP, ANEU, MG, ADIFF, CMP #### [address] [address] #### T3 #### [address] [address] GFR Non- 39 ml/min/1.73sqm Normal [facility] ([place]) Comment on above: Result Comment: GFR Population mean for , Non- Americans Ages 20-29 = 116 mL/min/1.73 sq.m. Ages 30-39 = 107 mL/min/1.73 sq.m. Ages 40-49 = 99 mL/min/1.73 sq.m. Ages 50-59 = 93 mL/min/1.73 sq.m. Ages 60-69 = 85 mL/min/1.73 sq.m. Ages 70+ = 75 mL/min/1.73 sq.m. Chronic Kidney Disease: Less than 60 mL/min/1.73 square meters End Stage Renal Disease: Less than 15 mL/min/1.73 square meters Performed By: #### T SH, CBC, GFR, FT4, PBNP, ANEU, MG, ADIFF, CMP #### [place] [address] #### T3 #### [address] [address] .NEUABSon 02-09-2023 Neutrophil, Absolute 3.0 10 3/mcL Normal 2.9-6.2 [facility] [place] Comment on above: Performed By: #### T SH, CBC, GFR, FT4, PBNP, ANEU, MG, ADIFF, CMP #### [address] [address] #### T3 #### [address] [address] CBCon 02-09-2023 Erythrocyte distribution width (RBC) [Ratio] 16.7 % High 11.5-14.5 [facility] ([place]) Comment on above: Performed By: #### T SH, CBC, GFR, FT4, PBNP, ANEU, MG, ADIFF, CMP #### [place] [address] #### T3 #### [address] [address] Hematocrit (Bld) [Volume fraction] 43.6 % Normal 42.0-52.0 [facility] ([place]) Comment on above: Performed By: #### T SH, CBC, GFR, FT4, PBNP, ANEU, MG, ADIFF, CMP #### [place] [address] #### T3 #### [address] [address] Hgb 14.3 G/dL Normal 14.0-18.0 [facility] ([place]) Comment on above: Performed By: #### T SH, CBC, GFR, FT4, PBNP, ANEU, MG, ADIFF, CMP #### [place] [address] #### T3 #### [place] [address] MCH (RBC) [Entitic mass] 30.7 pg Normal 27.0-31.2 [facility] ([place]) Comment on above: Performed By: #### T SH, CBC, GFR, FT4, PBNP, ANEU, MG, ADIFF, CMP #### [place] [address] #### T3 #### [place] [address] MCHC 32.9 G/dL Normal 31.8-35.4 [facility] ([place]) Comment on above: Performed By: #### T SH, CBC, GFR, FT4, PBNP, ANEU, MG, ADIFF, CMP #### [place] [address] #### T3 #### [place] [address] MCV (RBC) [Entitic vol] 93.4 fL Normal 80.0-94.0 [facility] ([place]) Comment on above: Performed By: #### T SH, CBC, GFR, FT4, PBNP, ANEU, MG, ADIFF, CMP #### [place] [address] #### T3 #### [place] [address] Platelet 135 10 3/mcL Normal 130-400 [facility] ([place]) Comment on above: Performed By: #### T SH, CBC, GFR, FT4, PBNP, ANEU, MG, ADIFF, CMP #### [place] [address] #### T3 #### [place] [address] Platelet mean volume (Bld) [Entitic vol] 7.5 fL Normal 7.4-10.4 [facility] ([place]) Comment on above: Performed By: #### T SH, CBC, GFR, FT4, PBNP, ANEU, MG, ADIFF, CMP #### [place] [address] #### T3 #### [place] [address] RBC 4.66 10 6/mcL Normal 4.04-6.13 [facility] ([place]) Comment on above: Performed By: #### T SH, CBC, GFR, FT4, PBNP, ANEU, MG, ADIFF, CMP #### [place] [address] #### T3 #### [place] [address] WBC 4.7 10 3/mcL Normal 4.6-10.8 [facility] ([place]) Comment on above: Performed By: #### T SH, CBC, GFR, FT4, PBNP, ANEU, MG, ADIFF, CMP #### [place] [address] #### T3 #### [place] [address] CMPon 02-09-2023 Albumin Level 3.7 G/dL Normal 3.4-4.8 [facility] ([place]) Comment on above: Performed By: #### T SH, CBC, GFR, FT4, PBNP, ANEU, MG, ADIFF, CMP #### [place] [address] #### T3 #### [address] [address] Albumin/Globulin [Mass ratio] 1.0 {ratio} Low 1.1-2.5 [facility] ([place]) Comment on above: Performed By: #### T SH, CBC, GFR, FT4, PBNP, ANEU, MG, ADIFF, CMP #### [address] [address] #### T3 #### [place] [address] ALP [Catalytic activity/Vol] 194 U/L High 40-135 [facility] ([place]) Comment on above: Performed By: #### T SH, CBC, GFR, FT4, PBNP, ANEU, MG, ADIFF, CMP #### [place] [address] #### T3 #### [place] [address] ALT [Catalytic activity/Vol] 23 U/L Normal 16-63 [facility] ([place]) Comment on above: Performed By: #### T SH, CBC, GFR, FT4, PBNP, ANEU, MG, ADIFF, CMP #### [place] [address] #### T3 #### [place] [address] AST [Catalytic activity/Vol] 18 U/L Normal 10-40 [facility] ([place]) Comment on above: Performed By: #### T SH, CBC, GFR, FT4, PBNP, ANEU, MG, ADIFF, CMP #### [place] [address] #### T3 #### [place] [address] Bili Total 0.9 mg/dL Normal 0.2-1.0 [facility] ([place]) Comment on above: Result Comment: Use of this assay is not recommended for patients undergoing treatment with eltrombopag due to the potential for falsely elevated results. Performed By: #### T SH, CBC, GFR, FT4, PBNP, ANEU, MG, ADIFF, CMP #### [address] [address] #### T3 #### [address] [address] BUN/Creatinine Ratio 17 ratio Normal 7-27 [facility] ([place]) Comment on above: Performed By: #### T SH, CBC, GFR, FT4, PBNP, ANEU, MG, ADIFF, CMP #### [place] [address] #### T3 #### [address] [address] Calcium [Mass/Vol] 8.8 mg/dL Normal 8.4-10.2 [facility] ([place]) Comment on above: Performed By: #### T SH, CBC, GFR, FT4, PBNP, ANEU, MG, ADIFF, CMP #### [place] [address] #### T3 #### [place] [address] Chloride [Moles/Vol] 102 mmol/L Normal 98-107 [facility] ([place]) Comment on above: Performed By: #### T SH, CBC, GFR, FT4, PBNP, ANEU, MG, ADIFF, CMP #### [place] [address] #### T3 #### [place] [address] CO2 [Moles/Vol] 30 mmol/L Normal 23-31 [facility] ([place]) Comment on above: Performed By: #### T SH, CBC, GFR, FT4, PBNP, ANEU, MG, ADIFF, CMP #### [place] [address] #### T3 #### [address] [address] Creatinine [Mass/Vol] 1.71 mg/dL High 0.70-1.30 [facility] ([place]) Comment on above: Performed By: #### T SH, CBC, GFR, FT4, PBNP, ANEU, MG, ADIFF, CMP #### [address] [address] #### T3 #### [address] [address] Electrolyte Balance 6.0 mEq/L Normal 4.0-15.0 [facility] ([place]) Comment on above: Performed By: #### T SH, CBC, GFR, FT4, PBNP, ANEU, MG, ADIFF, CMP #### [place] [address] #### T3 #### [address] [address] Globulin 3.6 G/dL Normal [facility] ([place]) Comment on above: Performed By: #### T SH, CBC, GFR, FT4, PBNP, ANEU, MG, ADIFF, CMP #### [place] [address] #### T3 #### [address] [address] Glucose [Mass/Vol] 112 mg/dL High 83-110 [facility] ([place]) Comment on above: Performed By: #### T SH, CBC, GFR, FT4, PBNP, ANEU, MG, ADIFF, CMP #### [place] [address] #### T3 #### [address] [address] Potassium [Moles/Vol] 4.9 mmol/L Normal 3.5-5.1 [facility] ([place]) Comment on above: Performed By: #### T SH, CBC, GFR, FT4, PBNP, ANEU, MG, ADIFF, CMP #### [place] [address] #### T3 #### [address] [address] Sodium [Moles/Vol] 138 mmol/L Normal 136-145 [facility] ([place]) Comment on above: Performed By: #### T SH, CBC, GFR, FT4, PBNP, ANEU, MG, ADIFF, CMP #### [address] [address] #### T3 #### [address] [address] Total Protein 7.3 G/dL Normal 6.4-8.2 [facility] ([place]) Comment on above: Performed By: #### T SH, CBC, GFR, FT4, PBNP, ANEU, MG, ADIFF, CMP #### [address] [address] #### T3 #### [address] [address] Urea nitrogen [Mass/Vol] 29 mg/dL High 7-18 [facility] ([place]) Comment on above: Performed By: #### T SH, CBC, GFR, FT4, PBNP, ANEU, MG, ADIFF, CMP #### [address] [address] #### T3 #### [address] [address] LABORATORYOrdered By: SYSTEM SYSTEM on 02-09-2023 Albumin BCP dye [Mass/Vol] 3.7 G/dL Invalid Interpretation Code 3.4 - 4.8 G/dL AO ADM SS Albumin/Globulin [Mass ratio] 1.0 {ratio} Invalid Interpretation Code 1.1 - 2.5 ratio AO ADM SS ALP [Catalytic activity/Vol] 194 U/L Invalid Interpretation Code 40 - 135 U/L AO ADM SS ALT With P-5'-P [Catalytic activity/Vol] 23 U/L Invalid Interpretation Code 16 - 63 U/L AO ADM SS AST With P-5'-P [Catalytic activity/Vol] 18 U/L Invalid Interpretation Code 10 - 40 U/L AO ADM SS Basophil, Absolute 0.0 103/mcL Invalid Interpretation Code 0.0 - 0.2 10^3/mcL AO Workflow SS Basophils/100 WBC (Bld) 0.6 % Invalid Interpretation Code 0.0 - 2.5 % AO Workflow SS Bilirubin [Mass/Vol] 0.9 mg/dL Invalid Interpretation Code 0.2 - 1.0 mg/dL AO ADM SS Comment on above: Interpretive Data: U se of this assay is not recommended for patients undergoing treatment with eltrombopag due to the potential for falsely elevated results. Calcium [Mass/Vol] 8.8 mg/dL Invalid Interpretation Code 8.4 - 10.2 mg/dL AO ADM SS Chloride [Moles/Vol] 102 mmol/L Invalid Interpretation Code 98 - 107 mmol/L AO ADM SS CO2 [Moles/Vol] 30 mmol/L Invalid Interpretation Code 23 - 31 mmol/L AO ADM SS Creatinine [Mass/Vol] 1.71 mg/dL Invalid Interpretation Code 0.70 - 1.30 mg/dL AO ADM SS Electrolyte Balance 6.0 mEq/L Invalid Interpretation Code 4.0 - 15.0 mEq/L AO ADM SS Eosinophil, Absolute 0.2 103/mcL Invalid Interpretation Code 0.0 - 0.4 10^3/mcL AO Workflow SS Eosinophils/100 WBC (Bld) 4.3 % Invalid Interpretation Code 0.0 - 7.0 % AO Workflow SS Erythrocyte distribution width (RBC) [Ratio] 16.7 % Invalid Interpretation Code 11.5 - 14.5 % AO Workflow SS GFR/1.73 sq M.predicted among blacks MDRD (S/P/Bld) [Vol rate/Area] 48 ml/min/1.73sqm Invalid Interpretation Code AO Chemistry S Comment on above: Interpretive Data: GFR Population mean for , Non- Americans Ages 20-29 = 116 mL/min/1.73 sq.m. Ages 30-39 = 107 mL/min/1.73 sq.m. Ages 40-49 = 99 mL/min/1.73 sq.m. Ages 50-59 = 93 mL/min/1.73 sq.m. Ages 60-69 = 85 mL/min/1.73 sq.m. Ages 70+ = 75 mL/min/1.73 sq.m. Chronic Kidney Disease: Less than 60 mL/min/1.73 square meters End Stage Renal Disease: Less than 15 mL/min/1.73 square meters GFR/1.73 sq M.predicted among non-blacks MDRD (S/P/Bld) [Vol rate/Area] 39 ml/min/1.73sqm Invalid Interpretation Code AO Chemistry S Comment on above: Interpretive Data: GFR Population mean for , Non- Americans Ages 20-29 = 116 mL/min/1.73 sq.m. Ages 30-39 = 107 mL/min/1.73 sq.m. Ages 40-49 = 99 mL/min/1.73 sq.m. Ages 50-59 = 93 mL/min/1.73 sq.m. Ages 60-69 = 85 mL/min/1.73 sq.m. Ages 70+ = 75 mL/min/1.73 sq.m. Chronic Kidney Disease: Less than 60 mL/min/1.73 square meters End Stage Renal Disease: Less than 15 mL/min/1.73 square meters Globulin 3.6 G/dL Invalid Interpretation Code AO ADM SS Glucose [Mass/Vol] 112 mg/dL Invalid Interpretation Code 83 - 110 mg/dL AO ADM SS Hematocrit (Bld) [Volume fraction] 43.6 % Invalid Interpretation Code 42.0 - 52.0 % AO Workflow SS Hemoglobin (Bld) [Mass/Vol] 14.3 G/dL Invalid Interpretation Code 14.0 - 18.0 G/dL AO Workflow SS Lymphocyte, Absolute 0.8 103/mcL Invalid Interpretation Code 0.8 - 3.9 10^3/mcL AO Workflow SS Lymphocytes/100 WBC (Bld) 17.6 % Invalid Interpretation Code 10.0 - 50.0 % AO Workflow SS MCH (RBC) [Entitic mass] 30.7 pg Invalid Interpretation Code 27.0 - 31.2 pg AO Workflow SS MCHC 32.9 G/dL Invalid Interpretation Code 31.8 - 35.4 G/dL AO Workflow SS MCV (RBC) [Entitic vol] 93.4 fL Invalid Interpretation Code 80.0 - 94.0 fL AO Workflow SS Monocyte, Absolute 0.6 103/mcL Invalid Interpretation Code 0.2 - 1.0 10^3/mcL AO Workflow SS Monocytes/100 WBC (Bld) 12.3 % Invalid Interpretation Code 1.7 - 13.0 % AO Workflow SS Natriuretic peptide.B prohormone N-Terminal [Mass/Vol] 5768 pg/mL Invalid Interpretation Code 0 - 125 pg/mL AO ADM SS Comment on above: Interpretive Data: N T-proBNP results of less than 300 pg/mL effectively rules out acute congestive heart failure with 99% negative predictive value. Neutrophil, Absolute 3.0 103/mcL Invalid Interpretation Code 2.9 - 6.2 10^3/mcL AO Workflow SS Neutrophils/100 WBC (Bld) 65.2 % Invalid Interpretation Code 37.0 - 80.0 % AO Workflow SS Platelet mean volume (Bld) [Entitic vol] 7.5 fL Invalid Interpretation Code 7.4 - 10.4 fL AO Workflow SS Platelets (Bld) [#/Vol] 135 103/mcL Invalid Interpretation Code 130 - 400 10^3/mcL AO Workflow SS Potassium [Moles/Vol] 4.9 mmol/L Invalid Interpretation Code 3.5 - 5.1 mmol/L AO ADM SS Protein [Mass/Vol] 7.3 G/dL Invalid Interpretation Code 6.4 - 8.2 G/dL AO ADM SS RBC (Bld) [#/Vol] 4.66 106/mcL Invalid Interpretation Code 4.04 - 6.13 10^6/mcL AO Workflow SS Sodium [Moles/Vol] 138 mmol/L Invalid Interpretation Code 136 - 145 mmol/L AO ADM SS TSH Qn 5.04 m[IU]/L Invalid Interpretation Code 0.36 - 3.74 mcIU/mL AO ADM SS Urea nitrogen [Mass/Vol] 29 mg/dL Invalid Interpretation Code 7 - 18 mg/dL AO ADM SS Urea nitrogen/Creatinine [Mass ratio] 17 ratio Invalid Interpretation Code 7 - 27 ratio AO ADM SS WBC (Bld) [#/Vol] 4.7 103/mcL Invalid Interpretation Code 4.6 - 10.8 10^3/mcL AO Workflow SS PBNPon 02-09-2023 Natriuretic peptide B (Bld) [Mass/Vol] 5768 pg/mL High 0-125 [facility] ([place]) Comment on above: Result Comment: NT-p roBNP results of less than 300 pg/mL effectively rules out acute congestive heart failure with 99% negative predictive value. Performed By: #### T SH, CBC, GFR, FT4, PBNP, ANEU, MG, ADIFF, CMP #### [address] [address] #### T3 #### [address] [address] TSHon 02-09-2023 TSH Qn 5.04 m[IU]/L High 0.36-3.74 [facility] ([place]) Comment on above: Performed By: #### T SH, CBC, GFR, FT4, PBNP, ANEU, MG, ADIFF, CMP #### [facility] [address] [place], [place] [address] #### T3 #### [facility] [address] [place] [id number] LABORATORYOrdered By: Rajwinder Shetty on 10-26-2022 Glucose [Mass/Vol] 111 mg/dL Invalid Interpretation Code 82 - 115 mg/dL [facility] Work Phone: LABORATORYOrdered By: Zenobia Juanjo on 09-01-2022 Basophil, Absolute 0.1 103/mcL Invalid Interpretation Code 0.0 - 0.2 10^3/mcL AO Workflow SS Basophils/100 WBC (Bld) 0.9 % Invalid Interpretation Code 0.0 - 2.5 % AO Workflow SS Eosinophil, Absolute 0.2 103/mcL Invalid Interpretation Code 0.0 - 0.4 10^3/mcL AO Workflow SS Eosinophils/100 WBC (Bld) 3.0 % Invalid Interpretation Code 0.0 - 7.0 % AO Workflow SS Erythrocyte distribution width (RBC) [Ratio] 17.4 % Invalid Interpretation Code 11.5 - 14.5 % AO Workflow SS Hematocrit (Bld) [Volume fraction] 28.7 % Invalid Interpretation Code 42.0 - 52.0 % AO Workflow SS Hemoglobin (Bld) [Mass/Vol] 9.6 G/dL Invalid Interpretation Code 14.0 - 18.0 G/dL AO Workflow SS Lymphocyte, Absolute 0.9 103/mcL Invalid Interpretation Code 0.8 - 3.9 10^3/mcL AO Workflow SS Lymphocytes/100 WBC (Bld) 15.7 % Invalid Interpretation Code 10.0 - 50.0 % AO Workflow SS MCH (RBC) [Entitic mass] 30.5 pg Invalid Interpretation Code 27.0 - 31.2 pg AO Workflow SS MCHC 33.4 G/dL Invalid Interpretation Code 31.8 - 35.4 G/dL AO Workflow SS MCV (RBC) [Entitic vol] 91.3 fL Invalid Interpretation Code 80.0 - 94.0 fL AO Workflow SS Monocyte, Absolute 0.7 103/mcL Invalid Interpretation Code 0.2 - 1.0 10^3/mcL AO Workflow SS Monocytes/100 WBC (Bld) 12.3 % Invalid Interpretation Code 1.7 - 13.0 % AO Workflow SS Neutrophil, Absolute 4.1 103/mcL Invalid Interpretation Code 2.9 - 6.2 10^3/mcL AO Workflow SS Neutrophils/100 WBC (Bld) 68.1 % Invalid Interpretation Code 37.0 - 80.0 % AO Workflow SS Platelet mean volume (Bld) [Entitic vol] 7.3 fL Invalid Interpretation Code 7.4 - 10.4 fL AO Workflow SS Platelets (Bld) [#/Vol] 385 103/mcL Invalid Interpretation Code 130 - 400 10^3/mcL AO Workflow SS RBC (Bld) [#/Vol] 3.15 106/mcL Invalid Interpretation Code 4.04 - 6.13 10^6/mcL AO Workflow SS WBC (Bld) [#/Vol] 6.0 103/mcL Invalid Interpretation Code 4.6 - 10.8 10^3/mcL AO Workflow SS LABORATORYOrdered By: SYSTEM SYSTEM on 09-01-2022 Calcium [Mass/Vol] 8.4 mg/dL Invalid Interpretation Code 8.4 - 10.2 mg/dL AO ADM SS Chloride [Moles/Vol] 103 mmol/L Invalid Interpretation Code 98 - 107 mmol/L AO ADM SS CO2 [Moles/Vol] 31 mmol/L Invalid Interpretation Code 23 - 31 mmol/L AO ADM SS Creatinine [Mass/Vol] 1.51 mg/dL Invalid Interpretation Code 0.70 - 1.30 mg/dL AO ADM SS Electrolyte Balance 3.0 mEq/L Invalid Interpretation Code 4.0 - 15.0 mEq/L AO ADM SS GFR/1.73 sq M.predicted among blacks MDRD (S/P/Bld) [Vol rate/Area] 55 ml/min/1.73sqm Invalid Interpretation Code AO Chemistry S GFR/1.73 sq M.predicted among non-blacks MDRD (S/P/Bld) [Vol rate/Area] 46 ml/min/1.73sqm Invalid Interpretation Code AO Chemistry S Glucose [Mass/Vol] 119 mg/dL Invalid Interpretation Code 83 - 110 mg/dL AO ADM SS Potassium [Moles/Vol] 4.7 mmol/L Invalid Interpretation Code 3.5 - 5.1 mmol/L AO ADM SS Sodium [Moles/Vol] 137 mmol/L Invalid Interpretation Code 136 - 145 mmol/L AO ADM SS Urea nitrogen [Mass/Vol] 29 mg/dL Invalid Interpretation Code 7 - 18 mg/dL AO ADM SS Urea nitrogen/Creatinine [Mass ratio] 19 ratio Invalid Interpretation Code 7 - 27 ratio AO ADM SS LABORATORYOrdered By: SYSTEM SYSTEM on 08-31-2022 Calcium [Mass/Vol] 8.4 mg/dL Invalid Interpretation Code 8.4 - 10.2 mg/dL AO ADM SS Chloride [Moles/Vol] 103 mmol/L Invalid Interpretation Code 98 - 107 mmol/L AO ADM SS CO2 [Moles/Vol] 31 mmol/L Invalid Interpretation Code 23 - 31 mmol/L AO ADM SS Creatinine [Mass/Vol] 1.41 mg/dL Invalid Interpretation Code 0.70 - 1.30 mg/dL AO ADM SS Electrolyte Balance 4.0 mEq/L Invalid Interpretation Code 4.0 - 15.0 mEq/L AO ADM SS GFR/1.73 sq M.predicted among blacks MDRD (S/P/Bld) [Vol rate/Area] 60 ml/min/1.73sqm Invalid Interpretation Code AO Chemistry S GFR/1.73 sq M.predicted among non-blacks MDRD (S/P/Bld) [Vol rate/Area] 49 ml/min/1.73sqm Invalid Interpretation Code AO Chemistry S Glucose [Mass/Vol] 114 mg/dL Invalid Interpretation Code 83 - 110 mg/dL AO ADM SS Magnesium [Mass/Vol] 1.9 mg/dL Invalid Interpretation Code 1.8 - 2.4 mg/dL AO ADM SS Potassium [Moles/Vol] 4.4 mmol/L Invalid Interpretation Code 3.5 - 5.1 mmol/L AO ADM SS Sodium [Moles/Vol] 138 mmol/L Invalid Interpretation Code 136 - 145 mmol/L AO ADM SS Urea nitrogen [Mass/Vol] 25 mg/dL Invalid Interpretation Code 7 - 18 mg/dL AO ADM SS Urea nitrogen/Creatinine [Mass ratio] 18 ratio Invalid Interpretation Code 7 - 27 ratio AO ADM SS LABORATORYOrdered By: SYSTEM SYSTEM on 08-27-2022 Calcium [Mass/Vol] 8.1 mg/dL Invalid Interpretation Code 8.4 - 10.2 mg/dL AO ADM SS Chloride [Moles/Vol] 104 mmol/L Invalid Interpretation Code 98 - 107 mmol/L AO ADM SS CO2 [Moles/Vol] 32 mmol/L Invalid Interpretation Code 23 - 31 mmol/L AO ADM SS Creatinine [Mass/Vol] 1.49 mg/dL Invalid Interpretation Code 0.70 - 1.30 mg/dL AO ADM SS Electrolyte Balance 2.0 mEq/L Invalid Interpretation Code 4.0 - 15.0 mEq/L AO ADM SS GFR/1.73 sq M.predicted among blacks MDRD (S/P/Bld) [Vol rate/Area] 56 ml/min/1.73sqm Invalid Interpretation Code AO Chemistry S GFR/1.73 sq M.predicted among non-blacks MDRD (S/P/Bld) [Vol rate/Area] 46 ml/min/1.73sqm Invalid Interpretation Code AO Chemistry S Glucose [Mass/Vol] 116 mg/dL Invalid Interpretation Code 83 - 110 mg/dL AO ADM SS Magnesium [Mass/Vol] 1.5 mg/dL Invalid Interpretation Code 1.8 - 2.4 mg/dL AO ADM SS Potassium [Moles/Vol] 4.1 mmol/L Invalid Interpretation Code 3.5 - 5.1 mmol/L AO ADM SS Sodium [Moles/Vol] 138 mmol/L Invalid Interpretation Code 136 - 145 mmol/L AO ADM SS Urea nitrogen [Mass/Vol] 25 mg/dL Invalid Interpretation Code 7 - 18 mg/dL AO ADM SS Urea nitrogen/Creatinine [Mass ratio] 17 ratio Invalid Interpretation Code 7 - 27 ratio AO ADM SS LABORATORYOrdered By: Wendy Sunshine on 08-24-2022 Glucose [Mass/Vol] 144 mg/dL Invalid Interpretation Code 82 - 115 mg/dL [facility] Work Phone: Glucose [Mass/Vol] 110 mg/dL Invalid Interpretation Code 82 - 115 mg/dL [facility] Work Phone: LABORATORYOrdered By: Steve Truong on 08-24-2022 FLUAV RNA RIVKA+probe Ql (Resp) Negative 3 (08/24/22 10:15 AM) Invalid Interpretation Code Negative AH Auto Viro/Sero SS Comment on above: Result Comment: [place] [id number] FLUBV RNA RIVKA+probe Ql (Resp) Negative 4 (08/24/22 10:15 AM) Invalid Interpretation Code Negative AH Auto Viro/Sero SS Comment on above: Result Comment: [place] [id number] RSV PCR Negative 5 (08/24/22 10:15 AM) Invalid Interpretation Code Negative AH Auto Viro/Sero SS Comment on above: Result Comment: [place] s [id number] SARS-CoV-2 (COVID-19) RNA RIVKA+probe Ql (Resp) Negative 2 (08/24/22 10:15 AM) Invalid Interpretation Code Negative AH Auto Viro/Sero SS Comment on above: [place]: [place] [id number] LABORATORYOrdered By: Rosita francisco on 08-23-2022 Blood Glucose Testing Reason Routine (08/23/22 9:31 PM) [facility] Work Phone: Glucose [Mass/Vol] 146 mg/dL Invalid Interpretation Code 82 - 115 mg/dL [facility] Work Phone: Blood Glucose Testing Reason Routine (08/23/22 4:28 PM) [facility] Work Phone: LABORATORYOrdered By: Misael Garcia on 08-23-2022 Blood Glucose Testing Reason Routine (08/23/22 11:55 AM) [facility] Work Phone: LABORATORYOrdered By: [id number] SYSTEM on 08-22-2022 Basophils (Bld) [#/Vol] 0.0 103/mcL Invalid Interpretation Code 0.0 - 0.3 10^3/mcL Workflow SS Basophils/100 WBC (Bld) 0.4 % Invalid Interpretation Code 0.0 - 2.5 % Workflow SS Calcium [Mass/Vol] 8.2 mg/dL Invalid Interpretation Code 8.7 - 10.4 mg/dL ADM SS Chloride [Moles/Vol] 102 mmol/L Invalid Interpretation Code 98 - 110 mEq/L ADM SS CO2 [Moles/Vol] 28 mmol/L Invalid Interpretation Code 22 - 32 mEq/L ADM SS Creatinine [Mass/Vol] 1.18 mg/dL Invalid Interpretation Code 0.60 - 1.40 mg/dL ADM SS Electrolyte Balance 8.0 mEq/L Invalid Interpretation Code 4.0 - 15.0 mEq/L ADM SS Eosinophils (Bld) [#/Vol] 0.1 103/mcL Invalid Interpretation Code 0.0 - 0.7 10^3/mcL AH Workflow SS Eosinophils/100 WBC (Bld) 1.6 % Invalid Interpretation Code 0.0 - 6.0 % AH Workflow SS Erythrocyte distribution width (RBC) [Ratio] 17.0 % Invalid Interpretation Code 11.5 - 15.5 % AH Workflow SS GFR/1.73 sq M.predicted among blacks MDRD (S/P/Bld) [Vol rate/Area] ml/min/1.73sqm Invalid Interpretation Code Chemistry S GFR/1.73 sq M.predicted among non-blacks MDRD (S/P/Bld) [Vol rate/Area] ml/min/1.73sqm Invalid Interpretation Code Chemistry S Glucose [Mass/Vol] 112 mg/dL Invalid Interpretation Code 82 - 115 mg/dL ADM SS Hematocrit (Bld) [Volume fraction] 28.9 % Invalid Interpretation Code 40.0 - 52.0 % Workflow SS Hemoglobin (Bld) [Mass/Vol] 9.6 G/dL Invalid Interpretation Code 13.0 - 17.5 G/dL Workflow SS Lymphocytes (Bld) [#/Vol] 0.8 103/mcL Invalid Interpretation Code 0.9 - 4.3 10^3/mcL Workflow SS Lymphocytes/100 WBC (Bld) 11.4 % Invalid Interpretation Code 20.0 - 40.0 % AH Workflow SS MCH (RBC) [Entitic mass] 30.7 pg Invalid Interpretation Code 27.0 - 33.0 pg AH Workflow SS MCHC 33.2 G/dL Invalid Interpretation Code 32.0 - 36.0 G/dL AH Workflow SS MCV (RBC) [Entitic vol] 92.3 fL Invalid Interpretation Code 81.0 - 100.0 fL Workflow SS Monocytes (Bld) [#/Vol] 1.1 103/mcL Invalid Interpretation Code 0.1 - 1.4 10^3/mcL AH Workflow SS Monocytes/100 WBC (Bld) 15.6 % Invalid Interpretation Code 2.0 - 13.0 % Workflow SS Neutrophils (Bld) [#/Vol] 4.9 103/mcL Invalid Interpretation Code 2.3 - 8.1 10^3/mcL AH Workflow SS Neutrophils/100 WBC (Bld) 71.0 % Invalid Interpretation Code 50.0 - 75.0 % Workflow SS Platelet mean volume (Bld) [Entitic vol] 7.6 fL Invalid Interpretation Code 6.4 - 10.5 fL AH Workflow SS Platelets (Bld) [#/Vol] 230 103/mcL Invalid Interpretation Code 150 - 450 10^3/mcL Workflow SS Potassium [Moles/Vol] 4.0 mmol/L Invalid Interpretation Code 3.5 - 5.0 mEq/L ADM SS RBC (Bld) [#/Vol] 3.13 106/mcL Invalid Interpretation Code 4.50 - 6.00 10^6/mcL Workflow SS Sodium [Moles/Vol] 138 mmol/L Invalid Interpretation Code 136 - 145 mEq/L ADM SS Urea nitrogen [Mass/Vol] 31.0 mg/dL Invalid Interpretation Code 8.0 - 22.0 mg/dL ADM SS Urea nitrogen/Creatinine [Mass ratio] 26.3 ratio Invalid Interpretation Code 10.0 - 22.0 ratio ADM SS WBC (Bld) [#/Vol] 6.9 103/mcL Invalid Interpretation Code 4.5 - 10.8 10^3/mcL Workflow SS LABORATORYOrdered By: SYSTEM SYSTEM on 08-21-2022 Basophils (Bld) [#/Vol] 0.0 103/mcL Invalid Interpretation Code 0.0 - 0.3 10^3/mcL Workflow SS Basophils/100 WBC (Bld) 0.3 % Invalid Interpretation Code 0.0 - 2.5 % Workflow SS Calcium [Mass/Vol] 8.5 mg/dL Invalid Interpretation Code 8.7 - 10.4 mg/dL ADM SS Chloride [Moles/Vol] 105 mmol/L Invalid Interpretation Code 98 - 110 mEq/L ADM SS CO2 [Moles/Vol] 28 mmol/L Invalid Interpretation Code 22 - 32 mEq/L ADM SS Creatinine [Mass/Vol] 1.36 mg/dL Invalid Interpretation Code 0.60 - 1.40 mg/dL ADM SS Electrolyte Balance 4.0 mEq/L Invalid Interpretation Code 4.0 - 15.0 mEq/L ADM SS Eosinophils (Bld) [#/Vol] 0.2 103/mcL Invalid Interpretation Code 0.0 - 0.7 10^3/mcL Workflow SS Eosinophils/100 WBC (Bld) 3.0 % Invalid Interpretation Code 0.0 - 6.0 % Workflow SS Erythrocyte distribution width (RBC) [Ratio] 16.8 % Invalid Interpretation Code 11.5 - 15.5 % Workflow SS GFR/1.73 sq M.predicted among blacks MDRD (S/P/Bld) [Vol rate/Area] ml/min/1.73sqm Invalid Interpretation Code Chemistry S GFR/1.73 sq M.predicted among non-blacks MDRD (S/P/Bld) [Vol rate/Area] 51 ml/min/1.73sqm Invalid Interpretation Code Chemistry S Glucose [Mass/Vol] 106 mg/dL Invalid Interpretation Code 82 - 115 mg/dL ADM SS Hematocrit (Bld) [Volume fraction] 26.3 % Invalid Interpretation Code 40.0 - 52.0 % AH Workflow SS Hemoglobin (Bld) [Mass/Vol] 8.7 G/dL Invalid Interpretation Code 13.0 - 17.5 G/dL AH Workflow SS Lymphocytes (Bld) [#/Vol] 0.8 103/mcL Invalid Interpretation Code 0.9 - 4.3 10^3/mcL AH Workflow SS Lymphocytes/100 WBC (Bld) 14.6 % Invalid Interpretation Code 20.0 - 40.0 % AH Workflow SS MCH (RBC) [Entitic mass] 30.2 pg Invalid Interpretation Code 27.0 - 33.0 pg AH Workflow SS MCHC 32.9 G/dL Invalid Interpretation Code 32.0 - 36.0 G/dL AH Workflow SS MCV (RBC) [Entitic vol] 91.7 fL Invalid Interpretation Code 81.0 - 100.0 fL AH Workflow SS Monocytes (Bld) [#/Vol] 0.9 103/mcL Invalid Interpretation Code 0.1 - 1.4 10^3/mcL AH Workflow SS Monocytes/100 WBC (Bld) 15.6 % Invalid Interpretation Code 2.0 - 13.0 % AH Workflow SS Neutrophils (Bld) [#/Vol] 3.7 103/mcL Invalid Interpretation Code 2.3 - 8.1 10^3/mcL AH Workflow SS Neutrophils/100 WBC (Bld) 66.5 % Invalid Interpretation Code 50.0 - 75.0 % AH Workflow SS Platelet mean volume (Bld) [Entitic vol] 7.0 fL Invalid Interpretation Code 6.4 - 10.5 fL AH Workflow SS Platelets (Bld) [#/Vol] 188 103/mcL Invalid Interpretation Code 150 - 450 10^3/mcL AH Workflow SS Potassium [Moles/Vol] 3.8 mmol/L Invalid Interpretation Code 3.5 - 5.0 mEq/L ADM SS RBC (Bld) [#/Vol] 2.87 106/mcL Invalid Interpretation Code 4.50 - 6.00 10^6/mcL Workflow SS Sodium [Moles/Vol] 137 mmol/L Invalid Interpretation Code 136 - 145 mEq/L ADM SS Urea nitrogen [Mass/Vol] 38.0 mg/dL Invalid Interpretation Code 8.0 - 22.0 mg/dL ADM SS Urea nitrogen/Creatinine [Mass ratio] 27.9 ratio Invalid Interpretation Code 10.0 - 22.0 ratio ADM SS WBC (Bld) [#/Vol] 5.5 103/mcL Invalid Interpretation Code 4.5 - 10.8 10^3/mcL Workflow SS LABORATORYOrdered By: SYSTEM SYSTEM on 08-20-2022 Basophils (Bld) [#/Vol] 0.0 103/mcL Invalid Interpretation Code 0.0 - 0.3 10^3/mcL Workflow SS Basophils/100 WBC (Bld) 0.3 % Invalid Interpretation Code 0.0 - 2.5 % Workflow SS Calcium [Mass/Vol] 8.4 mg/dL Invalid Interpretation Code 8.7 - 10.4 mg/dL ADM SS Chloride [Moles/Vol] 104 mmol/L Invalid Interpretation Code 98 - 110 mEq/L ADM SS CO2 [Moles/Vol] 30 mmol/L Invalid Interpretation Code 22 - 32 mEq/L ADM SS Creatinine [Mass/Vol] 1.60 mg/dL Invalid Interpretation Code 0.60 - 1.40 mg/dL ADM SS Electrolyte Balance 4.0 mEq/L Invalid Interpretation Code 4.0 - 15.0 mEq/L ADM SS Eosinophils (Bld) [#/Vol] 0.1 103/mcL Invalid Interpretation Code 0.0 - 0.7 10^3/mcL Workflow SS Eosinophils/100 WBC (Bld) 3.4 % Invalid Interpretation Code 0.0 - 6.0 % Workflow SS Erythrocyte distribution width (RBC) [Ratio] 16.7 % Invalid Interpretation Code 11.5 - 15.5 % Workflow SS GFR/1.73 sq M.predicted among blacks MDRD (S/P/Bld) [Vol rate/Area] 52 ml/min/1.73sqm Invalid Interpretation Code Chemistry S GFR/1.73 sq M.predicted among non-blacks MDRD (S/P/Bld) [Vol rate/Area] 43 ml/min/1.73sqm Invalid Interpretation Code Chemistry S Glucose [Mass/Vol] 140 mg/dL Invalid Interpretation Code 82 - 115 mg/dL ADM SS Hematocrit (Bld) [Volume fraction] 27.2 % Invalid Interpretation Code 40.0 - 52.0 % AH Workflow SS Hemoglobin (Bld) [Mass/Vol] 9.0 G/dL Invalid Interpretation Code 13.0 - 17.5 G/dL AH Workflow SS Lymphocytes (Bld) [#/Vol] 0.6 103/mcL Invalid Interpretation Code 0.9 - 4.3 10^3/mcL AH Workflow SS Lymphocytes/100 WBC (Bld) 14.8 % Invalid Interpretation Code 20.0 - 40.0 % AH Workflow SS MCH (RBC) [Entitic mass] 30.4 pg Invalid Interpretation Code 27.0 - 33.0 pg AH Workflow SS MCHC 33.1 G/dL Invalid Interpretation Code 32.0 - 36.0 G/dL AH Workflow SS MCV (RBC) [Entitic vol] 91.8 fL Invalid Interpretation Code 81.0 - 100.0 fL Workflow SS Monocytes (Bld) [#/Vol] 0.6 103/mcL Invalid Interpretation Code 0.1 - 1.4 10^3/mcL Workflow SS Monocytes/100 WBC (Bld) 15.3 % Invalid Interpretation Code 2.0 - 13.0 % Workflow SS Neutrophils (Bld) [#/Vol] 2.8 103/mcL Invalid Interpretation Code 2.3 - 8.1 10^3/mcL Workflow SS Neutrophils/100 WBC (Bld) 66.2 % Invalid Interpretation Code 50.0 - 75.0 % Workflow SS Platelet mean volume (Bld) [Entitic vol] 7.3 fL Invalid Interpretation Code 6.4 - 10.5 fL AH Workflow SS Platelets (Bld) [#/Vol] 172 103/mcL Invalid Interpretation Code 150 - 450 10^3/mcL AH Workflow SS Potassium [Moles/Vol] 4.2 mmol/L Invalid Interpretation Code 3.5 - 5.0 mEq/L ADM SS RBC (Bld) [#/Vol] 2.96 106/mcL Invalid Interpretation Code 4.50 - 6.00 10^6/mcL AH Workflow SS Sodium [Moles/Vol] 138 mmol/L Invalid Interpretation Code 136 - 145 mEq/L AH ADM SS Urea nitrogen [Mass/Vol] 51.0 mg/dL Invalid Interpretation Code 8.0 - 22.0 mg/dL AH ADM SS Urea nitrogen/Creatinine [Mass ratio] 31.9 ratio Invalid Interpretation Code 10.0 - 22.0 ratio AH ADM SS WBC (Bld) [#/Vol] 4.2 103/mcL Invalid Interpretation Code 4.5 - 10.8 10^3/mcL AH Workflow SS LABORATORYOrdered By: SYSTEM SYSTEM on 08-19-2022 Anisocytosis Ql (Bld) 1+ *NA* (08/19/22 5:08 AM) Invalid Interpretation Code AH Workflow SS Ovalocytes LM Ql (Bld) 1+ *NA* (08/19/22 5:08 AM) Invalid Interpretation Code AH Workflow SS Platelets LM Ql (Bld) Slt Decreased *NA* (08/19/22 5:08 AM) Invalid Interpretation Code AH Workflow SS Poikilocytosis LM Ql (Bld) 1+ *NA* (08/19/22 5:08 AM) Invalid Interpretation Code AH Workflow SS LABORATORYOrdered By: Naga Valentin on 08-18-2022 INR Coag (PPP) [Relative time] 1.4 {INR} Invalid Interpretation Code AH Auto Coag SS PT Coag (PPP) [Time] 16.4 s Invalid Interpretation Code 9.0 - 14.8 seconds AH Auto Coag SS LABORATORYOrdered By: SYSTEM SYSTEM on 08-18-2022 Anisocytosis Ql (Bld) 1+ *NA* (08/18/22 5:18 AM) Invalid Interpretation Code AH Workflow SS Band form neutrophils/100 WBC (Bld) 15.0 % Invalid Interpretation Code 0.0 - 5.0 % AH Workflow SS Basophils (Bld) [#/Vol] 0.0 103/mcL Invalid Interpretation Code 0.0 - 0.3 10^3/mcL AH Workflow SS Basophils/100 WBC (Bld) 0.0 % Invalid Interpretation Code 0.0 - 2.5 % AH Workflow SS Eosinophils (Bld) [#/Vol] 0.0 103/mcL Invalid Interpretation Code 0.0 - 0.7 10^3/mcL AH Workflow SS Eosinophils/100 WBC (Bld) 0.0 % Invalid Interpretation Code 0.0 - 6.0 % AH Workflow SS HbA1c (Bld) [Mass fraction] 5.9 % Invalid Interpretation Code 4.0 - 6.0 % Auto Chem SS Lymphocytes (Bld) [#/Vol] 0.5 103/mcL Invalid Interpretation Code 0.9 - 4.3 10^3/mcL AH Workflow SS Lymphocytes/100 WBC (Bld) 13.0 % Invalid Interpretation Code 20.0 - 40.0 % Workflow SS Magnesium [Mass/Vol] 1.6 mg/dL Invalid Interpretation Code 1.6 - 2.4 mg/dL ADM SS Metamyelocytes/100 WBC (Bld) 1.0 % Invalid Interpretation Code Workflow SS Monocytes (Bld) [#/Vol] 1.0 103/mcL Invalid Interpretation Code 0.1 - 1.4 10^3/mcL Workflow SS Monocytes/100 WBC (Bld) 23.0 % Invalid Interpretation Code 2.0 - 13.0 % Workflow SS Neutrophils (Bld) [#/Vol] 2.0 103/mcL Invalid Interpretation Code 2.3 - 8.1 10^3/mcL Workflow SS Neutrophils/100 WBC (Bld) 48.0 % Invalid Interpretation Code 50.0 - 75.0 % Workflow SS Nucleated RBC 0.0 /100 WBC Invalid Interpretation Code Workflow SS Ovalocytes LM Ql (Bld) 1+ *NA* (08/18/22 5:18 AM) Invalid Interpretation Code Workflow SS Platelets LM Ql (Bld) Normal *NA* (08/18/22 5:18 AM) Invalid Interpretation Code Workflow SS Poikilocytosis LM Ql (Bld) 1+ *NA* (08/18/22 5:18 AM) Invalid Interpretation Code Workflow SS LABORATORYOrdered By: SYSTEM SYSTEM on 08-17-2022 Albumin BCP dye [Mass/Vol] 3.1 G/dL Invalid Interpretation Code 3.2 - 4.8 G/dL ADM SS Albumin/Globulin [Mass ratio] 1.0 {ratio} Invalid Interpretation Code 0.9 - 1.6 ratio ADM SS ALP [Catalytic activity/Vol] 129 U/L Invalid Interpretation Code 38 - 126 U/L ADM SS ALT No additional P-5'-P [Catalytic activity/Vol] 12 U/L Invalid Interpretation Code 12 - 55 U/L ADM SS AST [Catalytic activity/Vol] 14 U/L Invalid Interpretation Code 8 - 34 U/L ADM SS Bilirubin [Mass/Vol] 1.60 mg/dL Invalid Interpretation Code 0.20 - 1.20 mg/dL ADM SS Globulin 3.0 G/dL Invalid Interpretation Code 1.5 - 3.8 G/dL ADM SS Protein [Mass/Vol] 6.1 G/dL Invalid Interpretation Code 5.7 - 8.2 G/dL ADM SS LABORATORYOrdered By: Sarah Beth Stevens on 08-16-2022 aPTT Coag (PPP) [Time] 33.0 s Invalid Interpretation Code 25.0 - 35.0 seconds AH Auto Coag SS Heparin dose (APTT) Unknown (08/16/22 5:01 PM) Invalid Interpretation Code AH Auto Coag SS INR Coag (PPP) [Relative time] 1.6 {INR} Invalid Interpretation Code AH Auto Coag SS PT Coag (PPP) [Time] 19.3 s Invalid Interpretation Code 9.0 - 14.8 seconds AH Auto Coag SS Appearance (U) Clear (08/16/22 2:43 PM) Invalid Interpretation Code Clear AH Auto Urine SS Bilirubin Ql (U) Negative (08/16/22 2:43 PM) Invalid Interpretation Code Neg-Trace AH Auto Urine SS Color (U) Yellow (08/16/22 2:43 PM) Invalid Interpretation Code AH Auto Urine SS Glucose Test strip (U) [Mass/Vol] >=1000 mg/dL Invalid Interpretation Code Negativemg/d L AH Auto Urine SS Hemoglobin Auto test strip (U) [Mass/Vol] Small *ABN* (08/16/22 2:43 PM) Invalid Interpretation Code Neg-Trace AH Auto Urine SS Ketones Ql (U) Trace mg/dL Invalid Interpretation Code Neg-Tracemg/ dL AH Auto Urine SS UA Fine Granular Casts Rare /LPF Invalid Interpretation Code AH Auto Urine SS UA Hyal Cast 0-2 /LPF Invalid Interpretation Code AH Auto Urine SS UA Leuk Est Negative (08/16/22 2:43 PM) Invalid Interpretation Code Negative AH Auto Urine SS UA Nitrite Negative (08/16/22 2:43 PM) Invalid Interpretation Code Negative AH Auto Urine SS UA pH 5.5 (08/16/22 2:43 PM) Invalid Interpretation Code 5.0 - 8.0 AH Auto Urine SS UA Protein 30 mg/dL Invalid Interpretation Code Negativemg/d L AH Auto Urine SS UA RBC 0-2 /HPF Invalid Interpretation Code 0-2/HPF AH Auto Urine SS UA Spec Grav >=1.030 *ABN* (08/16/22 2:43 PM) Invalid Interpretation Code 1.006-1.029 AH Auto Urine SS UA Specimen Type Clean Catch (08/16/22 2:43 PM) Invalid Interpretation Code AH Auto Urine SS UA Squam Epithelial 0-2 /HPF Invalid Interpretation Code 0-20/HPF AH Auto Urine SS UA Urobilinogen 1.0 E.U./dL Invalid Interpretation Code 0.2-1.0E.U./ dL AH Auto Urine SS WBC LM.HPF (Urine sed) [#/Area] 0-2 /HPF Invalid Interpretation Code 0-5/HPF AH Auto Urine SS LABORATORYOrdered By: [email or web address] SYSTEM on 08-16-2022 Albumin BCP dye [Mass/Vol] 3.9 G/dL Invalid Interpretation Code 3.2 - 4.8 G/dL AH ADM SS Albumin/Globulin [Mass ratio] 1.2 {ratio} Invalid Interpretation Code 0.9 - 1.6 ratio AH ADM SS ALP [Catalytic activity/Vol] 166 U/L Invalid Interpretation Code 38 - 126 U/L AH ADM SS ALT No additional P-5'-P [Catalytic activity/Vol] 13 U/L Invalid Interpretation Code 12 - 55 U/L AH ADM SS AST [Catalytic activity/Vol] 20 U/L Invalid Interpretation Code 8 - 34 U/L AH ADM SS Bilirubin [Mass/Vol] 1.40 mg/dL Invalid Interpretation Code 0.20 - 1.20 mg/dL AH ADM SS Globulin 3.3 G/dL Invalid Interpretation Code 1.5 - 3.8 G/dL AH ADM SS Lipase [Catalytic activity/Vol] 19 U/L Invalid Interpretation Code 12 - 53 U/L AH ADM SS Monocyte distribution width Auto (Bld) [Entitic vol] 22.82 Invalid Interpretation Code 0.00 - 20.00 Workflow SS Comment on above: Result Comment: For adults in ED, MDW>20.0 may be associated with a higher risk of sepsis during the first 12hrs of hospital admission Protein [Mass/Vol] 7.2 G/dL Invalid Interpretation Code 5.7 - 8.2 G/dL AH ADM SS LABORATORYOrdered By: Alda Russo on 08-16-2022 Lactate [Moles/Vol] 1.5 mmol/L Invalid Interpretation Code 0.2 - 2.0 mmol/L AH Auto Chem SS LABORATORYOrdered By: SYSTEM SYSTEM on 07-20-2022 Albumin BCP dye [Mass/Vol] 3.8 G/dL Invalid Interpretation Code 3.4 - 4.8 G/dL AO ADM SS Albumin/Globulin [Mass ratio] 1.2 {ratio} Invalid Interpretation Code 1.1 - 2.5 ratio AO ADM SS ALP [Catalytic activity/Vol] 177 U/L Invalid Interpretation Code 40 - 135 U/L AO ADM SS ALT With P-5'-P [Catalytic activity/Vol] 28 U/L Invalid Interpretation Code 16 - 63 U/L AO ADM SS AST With P-5'-P [Catalytic activity/Vol] 17 U/L Invalid Interpretation Code 10 - 40 U/L AO ADM SS Bilirubin [Mass/Vol] 1.2 mg/dL Invalid Interpretation Code 0.2 - 1.0 mg/dL AO ADM SS Calcium [Mass/Vol] 9.1 mg/dL Invalid Interpretation Code 8.4 - 10.2 mg/dL AO ADM SS Chloride [Moles/Vol] 103 mmol/L Invalid Interpretation Code 98 - 107 mmol/L AO ADM SS CO2 [Moles/Vol] 28 mmol/L Invalid Interpretation Code 23 - 31 mmol/L AO ADM SS Creatinine [Mass/Vol] 1.57 mg/dL Invalid Interpretation Code 0.70 - 1.30 mg/dL AO ADM SS Electrolyte Balance 10.0 mEq/L Invalid Interpretation Code 4.0 - 15.0 mEq/L AO ADM SS GFR 53 ml/min/1.73sqm Invalid Interpretation Code AO Chemistry S GFR Non- 44 ml/min/1.73sqm Invalid Interpretation Code AO Chemistry S Globulin 3.3 G/dL Invalid Interpretation Code AO ADM SS Glucose [Mass/Vol] 140 mg/dL Invalid Interpretation Code 83 - 110 mg/dL AO ADM SS Natriuretic peptide.B prohormone N-Terminal [Mass/Vol] 4975 pg/mL Invalid Interpretation Code 0 - 125 pg/mL AO ADM SS Potassium [Moles/Vol] 4.7 mmol/L Invalid Interpretation Code 3.5 - 5.1 mmol/L AO ADM SS Protein [Mass/Vol] 7.1 G/dL Invalid Interpretation Code 6.4 - 8.2 G/dL AO ADM SS Sodium [Moles/Vol] 141 mmol/L Invalid Interpretation Code 136 - 145 mmol/L AO ADM SS TSH Qn 4.54 m[IU]/L Invalid Interpretation Code 0.36 - 3.74 mcIU/mL AO ADM SS Urea nitrogen [Mass/Vol] 22 mg/dL Invalid Interpretation Code 7 - 18 mg/dL AO ADM SS Urea nitrogen/Creatinine [Mass ratio] 14 ratio Invalid Interpretation Code 7 - 27 ratio AO ADM SS LABORATORYOrdered By: Atul No on 07-20-2022 Basophil, Absolute 0.0 103/mcL Invalid Interpretation Code 0.0 - 0.2 10^3/mcL AO Workflow SS Basophils/100 WBC (Bld) 0.5 % Invalid Interpretation Code 0.0 - 2.5 % AO Workflow SS Eosinophil, Absolute 0.2 103/mcL Invalid Interpretation Code 0.0 - 0.4 10^3/mcL AO Workflow SS Eosinophils/100 WBC (Bld) 4.2 % Invalid Interpretation Code 0.0 - 7.0 % AO Workflow SS Erythrocyte distribution width (RBC) [Ratio] 18.1 % Invalid Interpretation Code 11.5 - 14.5 % AO Workflow SS Hematocrit (Bld) [Volume fraction] 39.4 % Invalid Interpretation Code 42.0 - 52.0 % AO Workflow SS Hemoglobin (Bld) [Mass/Vol] 12.9 G/dL Invalid Interpretation Code 14.0 - 18.0 G/dL AO Workflow SS Lymphocyte, Absolute 0.9 103/mcL Invalid Interpretation Code 0.8 - 3.9 10^3/mcL AO Workflow SS Lymphocytes/100 WBC (Bld) 20.0 % Invalid Interpretation Code 10.0 - 50.0 % AO Workflow SS MCH (RBC) [Entitic mass] 29.9 pg Invalid Interpretation Code 27.0 - 31.2 pg AO Workflow SS MCHC 32.9 G/dL Invalid Interpretation Code 31.8 - 35.4 G/dL AO Workflow SS MCV (RBC) [Entitic vol] 91.0 fL Invalid Interpretation Code 80.0 - 94.0 fL AO Workflow SS Monocyte, Absolute 0.5 103/mcL Invalid Interpretation Code 0.2 - 1.0 10^3/mcL AO Workflow SS Monocytes/100 WBC (Bld) 11.8 % Invalid Interpretation Code 1.7 - 13.0 % AO Workflow SS Neutrophil, Absolute 2.9 103/mcL Invalid Interpretation Code 2.9 - 6.2 10^3/mcL AO Workflow SS Neutrophils/100 WBC (Bld) 63.5 % Invalid Interpretation Code 37.0 - 80.0 % AO Workflow SS Platelet mean volume (Bld) [Entitic vol] 7.8 fL Invalid Interpretation Code 7.4 - 10.4 fL AO Workflow SS Platelets (Bld) [#/Vol] 126 103/mcL Invalid Interpretation Code 130 - 400 10^3/mcL AO Workflow SS RBC (Bld) [#/Vol] 4.33 106/mcL Invalid Interpretation Code 4.04 - 6.13 10^6/mcL AO Workflow SS WBC (Bld) [#/Vol] 4.6 103/mcL Invalid Interpretation Code 4.6 - 10.8 10^3/mcL AO Workflow SS Basophil percentageOrdered B y: Dr. Grayson on 05-28-2022 Basophil percentage 2.6 mg/dL 2.5-4.9 [facility] Chloride [Moles/Vol] 105 mmol/L 98-107 [facility] Cholesterol [Mass/Vol] 127 mg/dL <200 [facility] Comment on above: <200 mg/dL Desirable 200-240 mg/dL Borderline >240 mg/dL High Risk Glucose [Mass/Vol] 108 mg/dL 74-106 [facility] Comment on above: Fasting Glucose resu lt from 100 to 125 mg/dL suggests IMPAIRED HOMEOSTASIS per A.D.A. criteria. Potassium [Moles/Vol] 4.2 mmol/L 3.5-5.1 [facility] Sodium [Moles/Vol] 139 mmol/L 136-145 [facility] Triglyceride [Mass/Vol] 87 mg/dL <199 [facility] Comment on above: The drugs N-Acetylcy steine and Metamizole may falsely depress this assay.Serum Triglycerides Reference Interval Normal <150 mg/dL Borderline high 150 - 199 mg/dL High 200 - 499 mg/dL Very High > or = 500 mg/dL WBC (Bld) [#/Vol] 5.3 10*3/uL 4.4-11.0 [facility] Blood erythrocytes count (nu mber/volume)Ordered By: Dr. Grayson on 05-28-2022 RBC (Bld) [#/Vol] 4.38 10*6/uL 4.6-6.2 [facility] Blood hemoglobin measurement (mass/volume)Ordered By: Dr. Grayson on 05-28-2022 Hemoglobin (Bld) [Mass/Vol] 13.0 g/dL 13.0-16.5 [facility] Blood platelet mean volumeOr dered By: Dr. Grayson on 05-28-2022 Platelet mean volume (Bld) [Entitic vol] 10.0 fL 6.2-12.0 [facility] Determination of erythrocyte mean corpuscular volume (MCV)Ordered By: Dr. Grayson on 05-28-2022 MCV (RBC) [Entitic vol] 93.8 fL 80-94 [facility] Hematocrit Auto (Bld) [Volum e fraction]Ordered By: Dr. Grayson on 05-28-2022 Hematocrit (Bld) [Volume fraction] 41.1 % 40-54 [facility] Laboratory - Chemistry and C hemistry - challengeOrdered By: Dr. Grayson on 05-28-2022 CO2 [Moles/Vol] 25.0 mmol/L 21.0-32.0 [facility] Free T4 [Mass/Vol] 1.49 ng/dL 0.76-1.46 [facility] Magnesium [Mass/Vol] 2.0 mg/dL 1.6-2.6 [facility] Natriuretic peptide B (Bld) [Mass/Vol] 1180.3 pg/mL 0-100 [facility] Urea nitrogen/Creatinine [Mass ratio] 12.7 mg/mg 10-20 [facility] Laboratory - Hematology and Cell countsOrdered By: Dr. Grayson on 05-28-2022 Erythrocyte distribution width (RBC) [Entitic vol] 57.2 fL 35.1-43.9 [facility] Erythrocyte distribution width (RBC) [Ratio] 16.4 % 11.6-14.6 [facility] MCH (RBC) [Entitic mass] 29.7 pg 27.0-32.0 [facility] MCHC Auto (RBC) [Mass/Vol]Or dered By: Dr. Grayson on 05-28-2022 MCHC (RBC) [Mass/Vol] 31.6 g/dL 32-36 [facility] No Panel InformationOrdered By: Dr. Grayson on 02-16-2023 Estimated GFR (MDRD) Amer 53 mL/min >60 [facility] Comment on above: GFR Calc Estimated GFR (MDRD) Non-Af Amer 44 mL/min >60 [facility] Comment on above: Non- GFR Calc Ionized Calcium 5.2 mg/dL 4.5-5.6 [facility] Comment on above: Performed at: [facility] [employer] [address] [id number] Director: Manuel Sunshine PhD, Phone: [phone] Parathyroid Hormone (Intact) 102.0 pg/mL 18.4-80.1 [facility] Thyroid Stimulating Hormone (TSH) 5.07 uIU/mL 0.358-3.74 [facility] Vitamin D 25-Hydroxy 36.2 ng/mL [facility] Comment on above: Vitamin D 25(OH) Sta tus Range Deficiency <20 ng/mL (50nmol/L) Insufficiency 20 - 30 ng/mL (50 - 75 nmol/L) Sufficiency 30 - 100 ng/mL (75 - 250 nmol/L) Toxicity >100 ng/mL (>250 nmol/L) Platelets bldOrdered By: Dr. Grayson on 05-28-2022 Platelets (Bld) [#/Vol] 145 10*3/uL 150-450 [facility] Serum or plasma calcium babak urement (mass/volume)Ordered By: Dr. Grayson on 05-28-2022 Calcium [Mass/Vol] 8.9 mg/dL 8.5-10.1 [facility] Serum or plasma cholesterol in HDL measurement (mass/volume)Ordered By: Dr. Grayson on 05-28-2022 Cholesterol in HDL [Mass/Vol] 28 mg/dL >40 [facility] Comment on above: The drugs N-Acetylcy steine and Metamizole may falsely depress this assay. Reference Range HDL <40 mg/dL Low HDL Cholesterol HDL >or= 60 mg/dL High HDL Cholesterol Serum or plasma cholesterol in VLDL measurement (mass/volume)Ordered By: Dr. Grayson on 05-28-2022 Cholesterol in VLDL [Mass/Vol] 17 mg/dL 5-40 [facility] Serum or plasma creatinine m easurement (mass/volume)Ordered By: Dr. Grayson on 05-28-2022 Creatinine [Mass/Vol] 1.65 mg/dL 0.70-1.30 [facility] Comment on above: The validity of the calculated GFR & GFRAA in patients over 70 years has not been determined. Clinical correlation is essential. Serum or plasma low density lipoprotein (LDL) cholesterol measurement (mass/volume)Ordered By: Dr. Grayson on 05-28-2022 Cholesterol in LDL [Mass/Vol] 82 mg/dL 0-130 [facility] Serum or plasma urea nitroge n measurement (mass/volume)Ordered By: Dr. Grayson on 05-28-2022 Urea nitrogen [Mass/Vol] 21 mg/dL 7-18 [facility] Thin prep Papanicolaou smear with manual screeningOrdered By: Dr. Grayson on 05-28-2022 Thin prep Papanicolaou smear with manual screening 9 5-15 [facility] Basophil percentageOrdered B y: Dr. Grayson on 02-11-2022 Bilirubin [Mass/Vol] 0.50 mg/dL 0.20-1.00 [facility] Comment on above: For patients on eltr ombopag therapy, use of Dimension [place] TBIL is not recommended. Chloride [Moles/Vol] 106 mmol/L 98-107 [facility] Glucose [Mass/Vol] 109 mg/dL 74-106 [facility] Comment on above: Fasting Glucose resu lt from 100 to 125 mg/dL suggests IMPAIRED HOMEOSTASIS per A.D.A. criteria. Potassium [Moles/Vol] 4.3 mmol/L 3.5-5.1 [facility] Protein [Mass/Vol] 7.2 g/dL 6.4-8.2 [facility] Sodium [Moles/Vol] 138 mmol/L 136-145 [facility] Laboratory - Chemistry and C hemistry - challengeOrdered By: Dr. Grayson on 02-11-2022 ALP [Catalytic activity/Vol] 145 U/L 45-117 [facility] ALT [Catalytic activity/Vol] 28 U/L 16-61 [facility] CO2 [Moles/Vol] 26.0 mmol/L 21.0-32.0 [facility] Globulin (S) [Mass/Vol] 3.9 g/dL 2.2-4.2 [facility] Natriuretic peptide B (Bld) [Mass/Vol] 581.3 pg/mL 0-100 [facility] Urea nitrogen/Creatinine [Mass ratio] 17.4 mg/mg 10-20 [facility] No Panel InformationOrdered By: Dr. Grayson on 02-11-2022 Estimated GFR (MDRD) Amer 60 mL/min >60 [facility] Comment on above: GFR Calc Estimated GFR (MDRD) Non-Af Amer 49 mL/min >60 [facility] Comment on above: Non- GFR Calc Prostate Specific Antigen Screen 0.30 ng/mL 0.00-4.00 [facility] Comment on above: This test was perfor med using the TPSA assay method for [employer] chemistry system. Values obtained with differentassay methods cannot be used interchangably.When changing PSA assays in the course of monitoring apatient, additional sequential testing should be carriedout to confirm baseline values. Thyroid Stimulating Hormone (TSH) 3.23 uIU/mL 0.358-3.74 [facility] Serum or plasma albumin babak urement (mass/volume)Ordered By: Dr. Grayson on 02-11-2022 Albumin [Mass/Vol] 3.3 g/dL 3.2-5.0 [facility] Serum or plasma albumin/glob ulin mass ratioOrdered By: Dr. Grayson on 02-11-2022 Albumin/Globulin [Mass ratio] 0.8 {ratio} 0.9-2.4 [facility] Serum or plasma calcium babak urement (mass/volume)Ordered By: Dr. Grayson on 02-11-2022 Calcium [Mass/Vol] 9.0 mg/dL 8.5-10.1 [facility] Serum or plasma creatinine m easurement (mass/volume)Ordered By: Dr. Grayson on 02-11-2022 Creatinine [Mass/Vol] 1.49 mg/dL 0.70-1.30 [facility] Comment on above: The validity of the calculated GFR & GFRAA in patients over 70 years has not been determined. Clinical correlation is essential. Serum or plasma urea nitroge n measurement (mass/volume)Ordered By: Dr. Grayson on 02-11-2022 Urea nitrogen [Mass/Vol] 26 mg/dL 7-18 [facility] Thin prep Papanicolaou smear with manual screeningOrdered By: Dr. Grayson on 02-11-2022 Thin prep Papanicolaou smear with manual screening 24 U/L 15-37 [facility] Thin prep Papanicolaou smear with manual screening 6 5-15 [facility] ALLIED HEALTHon 12-25-2021 ALLIED HEALTH HNO ID: [id number] Author: rAabella Marshall LPN Service: Care Management Author Type: LICENSED NURSE Type: Allied Health Filed: 12/25/2021 3:08 PM Note Text: ANCILLARY HOME HEALTH LIAISON PROGRESS NOTE SERVICE DATE: 12/25/2021 SERVICE TIME: 3:04 PM HOME HEALTH LIAISON REFERRAL NOTE SERVICE DATE: December 25, 2021 SERVICE TIME: 3:04 PM PRIMARY CARE PHYSICIAN: Hoda Grayson MD Primary Contact: Patient Demographics: Jacky Henri [address] [address] Primary (home) Secondary Phone: Emergency Contact: Extended Emergency Contact Information Primary Emergency Contact: JOHN COSME Mobile Relation: Other Secondary Emergency Contact: CRYSTAL MONDRAGON Mobile Relation: Other Ordering Physician: Nash Henry MD Provider agreeable to follow: Following Physician: Nash Henry MD Agreeable to Follow: yes Name of person PACC spoke to/Date/Time of Call: ORDERING MD IS ALSO THE FOLLOWING MD, 12/25/21 , 3:04 PM FREEDOM OF CHOICE EXPLAINED: Yes The patient and/or family has been given the Provider List: Yes Provider List: Home Care [facility]ference: [facility] Primary Diagnosis and Reason for Services: Primary osteoarthritis of left shoulder [M19.012] Patient's Home Health goal: return to baseline level of functioning Start of Care call needed: NO Hi-tech (labs, wounds, infusions, etc): Fresh Shoulder ortho Care Types: no If Yes what Care Types: Fresh Joint Social Determinants of Health Tobacco Use: Low Risk Smoking Tobacco Use: Never Smokeless Tobacco Use: Never Alcohol Use: Not Currently Drug Use: Never Does the patient have any financial resource strain? No Does the patient have any food insecurities? No Does the patient have any housing instabilities? No If any of the above is noted as yes, consider a [employer] evaluation once the patient returns home. COVID Status COVID Status 1. Does the patient have any upper respiratory symptoms (cough, SOB, Fever)? no 2. Has the patient recently been exposed to anyone with COVID-19 Virus? no COVID 19 Result Date Value Ref Range Status 12/24/2021 Not Detected Final SARS-CoV-2 (Agent of COVID-19) Not Detected by RT-PCR or equivalent method. Comment: This test has been authorized by FDA under an Emergency Use Authorization (EUA). Covid Immunization Dates Overdue - COVID-19 VACCINE (3 - Booster for Moderna series) Overdue since 01/02/2021 08/02/2020 Imm Admin: COVID-19 vaccine, full dose (MODERNA) 07/05/2020 Imm Admin: COVID-19 vaccine, full dose (MODERNA) Answer only if pending or positive for COVID-19? 1. Agreeable to wear PPE at each visit? N/A 2. Is the hospital supplying them with PPE upon Discharge? N/A Discharge Date: 12/25/21 PLAN: Home with pt/ot services SIGNATURE: Arabella Marshall LPN PATIENT NAME: Jacky Ellis DATE: December 25, 2021 TIME: 3:04 PM CONTACT #: [phone] SIGNATURE: Arabella Marshall LPN PATIENT NAME: Jacky Ellis DATE: December 25, 2021 TIME: 3:04 PM PAGER/CONTACT #: [phone] Normal [facility] Basic metabolic 2000 panelon 12-25-2021 Anion gap [Moles/Vol] 9 mmol/L Normal 5-16 [facility] Comment on above: Order Comment: Speci men Type: BLOOD SPECIMEN Ordering Facility: [facility]: [address] [place] [address] Performed By: #### 5 8410-2 #### [facility] CLIA [id number] [address] [place] [id number] [place] Calcium [Mass/Vol] 9.5 mg/dL Normal 8.5-10.5 [facility] Comment on above: Order Comment: Speci men Type: BLOOD SPECIMEN Ordering Facility: [facility] Address: [address] [place] [address] Performed By: #### 5 8410-2 #### [facility] CLIA [id number] [address] [place] [address] [place] Chloride [Moles/Vol] 102 mmol/L Normal 98-107 [facility] Comment on above: Order Comment: Speci men Type: BLOOD SPECIMEN Ordering Facility: [facility] Address: [address] [place] [address] Performed By: #### 5 8410-2 #### [facility] CLIA [id number] [address] [place] [address] [place] CO2 [Moles/Vol] 25 mmol/L Normal 21-32 [facility] Comment on above: Order Comment: Speci men Type: BLOOD SPECIMEN Ordering Facility: [facility] Address: [address] [place] [address] Performed By: #### 5 8410-2 #### [facility] CLIA [id number] [address] [place] [address] [place] Creatinine [Mass/Vol] 1.77 mg/dL High 0.50-1.40 [facility] Comment on above: Order Comment: Speci men Type: BLOOD SPECIMEN Ordering Facility: [facility] Address: [address] [place] [address] Result Comment: Tatyana ents receiving either N-Acetylcysteine (NAC) or Metamizole prior to venipuncture, may have falsely depressed results. Performed By: #### 5 8410-2 #### [facility] CLIA [id number] [address] [place] [address] [place] ESTIMATED GLOMERULAR FILTRATION RATE 40 mL/min/1.73m??? Low >=60 [facility] Comment on above: Order Comment: Speci men Type: BLOOD SPECIMEN Ordering Facility: [facility] Address: [address] [place] [address] Result Comment: Roxanna mated Glomerular Filtration Rate (eGFR) is calculated using the 2020 CKD-EPI creatinine equation. This equation utilizes serum creatinine, sex, and age as parameters. The creatinine assay has traceable calibration to isotope dilution-mass spectrometry. Refer to KDIGO guidelines for clinical interpretation. In patients with unstable renal function, e.g. those with acute kidney injury, the eGFR may not accurately reflect actual GFR. Performed By: #### 5 8410-2 #### [facility] CLIA [id number] [address] [place] [address] [place] Glucose [Mass/Vol] 148 mg/dL High 70-100 [facility] Comment on above: Order Comment: Rudy valles Type: BLOOD SPECIMEN Ordering Facility: [facility] Address: [address] [place], [place] [id number] Result Comment: The [place] [employer] (ADA) provides guidance for cutoff values for fasting glucose and random glucose. The ADA defines fasting as no caloric intake for at least 8 hours. Fasting plasma glucose results between 100 to 125 mg/dL indicate increased risk for diabetes (prediabetes). Fasting plasma glucose results greater than or equal to 126 mg/dL meet the criteria for diagnosis of diabetes. In the absence of unequivocal hyperglycemia, results should be confirmed by repeat testing. In a patient with classic symptoms of hyperglycemia or hyperglycemic crisis, random plasma glucose results greater than or equal to 200 mg/dL meet the criteria for diagnosis of diabetes. Reference: Standards of Medical Care in Diabetes 2016, [place] [employer]. Diabetes Care. 2016.39(Suppl 1). Results may be falsely elevated after the administration of Sulfapyridine. Results may be falsely depressed after the administration of Sulfasalazine. Performed By: #### 5 8410-2 #### [facility] CLIA [id number] [address] [place] [address] [place] Potassium [Moles/Vol] 4.8 mmol/L Normal 3.5-5.1 [facility] Comment on above: Order Comment: Rudy valles Type: BLOOD SPECIMEN Ordering Facility: [facility] Address: [address] [place] [address] Performed By: #### 5 8410-2 #### [facility] CLIA [id number] [address] [place] [address] [place] Sodium [Moles/Vol] 136 mmol/L Normal 136-145 [facility] Comment on above: Order Comment: Speci men Type: BLOOD SPECIMEN Ordering Facility: [facility] Address: [address] [place] [address] Performed By: #### 5 8410-2 #### [facility] CLIA [id number] [address] [place] [address] [place] Urea nitrogen [Mass/Vol] 32 mg/dL High 7-26 [facility] Comment on above: Order Comment: Speci men Type: BLOOD SPECIMEN Ordering Facility: [facility] Address: [address] [place] [address] Performed By: #### 5 8410-2 #### [facility] CLIA [id number] [address] [place] [address] [place] CBC W Auto Differential pane l (Bld)on 12-25-2021 Basophils (Bld) [#/Vol] 10*3/uL Normal <0.11 [facility] Comment on above: Order Comment: Speci men Type: BLOOD SPECIMEN Ordering Facility: [facility] Address: [address] [place] [address] Performed By: #### 5 8410-2 #### [facility] CLIA [id number] [address] [place] [address] [place] Basophils/100 WBC (Bld) 0.2 % Normal [facility] Comment on above: Order Comment: Speci men Type: BLOOD SPECIMEN Ordering Facility: [facility] Address: [address] [place] [address] Performed By: #### 5 8410-2 #### [facility] CLIA [id number] [address] [place] [address] [place] Differential cell count method Nom (Bld) Auto Normal [facility] Comment on above: Order Comment: Speci men Type: BLOOD SPECIMEN Ordering Facility: [facility] Address: [address] Performed By: #### 5 8410-2 #### [facility] CLIA [id number] [address] [place] [address] [place] Eosinophils (Bld) [#/Vol] 10*3/uL Normal <0.46 [facility] Comment on above: Order Comment: Speci men Type: BLOOD SPECIMEN Ordering Facility: [facility] Address: [address] [place] [address] Performed By: #### 5 8410-2 #### [facility] CLIA [id number] [address] [place] [address] [place] Eosinophils/100 WBC (Bld) 0.0 % Normal [facility] Comment on above: Order Comment: Speci men Type: BLOOD SPECIMEN Ordering Facility: [facility] Address: [address] [place] [address] Performed By: #### 5 8410-2 #### [facility] CLIA [id number] [address] [place] [address] [place] Erythrocyte distribution width (RBC) [Ratio] 15.3 % High 11.5-15.0 [facility] Comment on above: Order Comment: Speci men Type: BLOOD SPECIMEN Ordering Facility: [facility] Address: [address] [place] [address] Performed By: #### 5 8410-2 #### [facility] CLIA [id number] [address] [place] [address] [place] Hematocrit (Bld) [Volume fraction] 35.8 % Low 39.0-51.0 [facility] Comment on above: Order Comment: Speci men Type: BLOOD SPECIMEN Ordering Facility: [facility] Address: [facility] [place] [address] Performed By: #### 5 8410-2 #### [facility] CLIA [id number] [address] [place] [address] [place] Hemoglobin (Bld) [Mass/Vol] 11.6 g/dL Low 13.0-17.0 [facility] Comment on above: Order Comment: Speci men Type: BLOOD SPECIMEN Ordering Facility: [facility] Address: [address] [place] [address] Performed By: #### 5 8410-2 #### [facility] CLIA [id number] [address] [place] [address] [place] IMMATURE GRAN % 0.4 % Normal [facility] Comment on above: Order Comment: Speci men Type: BLOOD SPECIMEN Ordering Facility: [facility] Address: [address] [place] [address] Performed By: #### 5 8410-2 #### [facility] CLIA [id number] [address] [place] [address] [place] IMMATURE GRAN ABS 0.05 k/uL Normal <0.10 [facility] Comment on above: Order Comment: Speci men Type: BLOOD SPECIMEN Ordering Facility: [facility] Address: [address] [place] [address] Performed By: #### 5 8410-2 #### [facility] CLIA [id number] [address] [place] [address] [place] Lymphocytes (Bld) [#/Vol] 0.80 10*3/uL Low 1.00-4.00 [facility] Comment on above: Order Comment: Speci men Type: BLOOD SPECIMEN Ordering Facility: [facility] Address: [address] [place] [address] Performed By: #### 5 8410-2 #### [facility] CLIA [id number] [address] [place] [address] [place] Lymphocytes/100 WBC (Bld) 6.2 % Normal [facility] Comment on above: Order Comment: Speci men Type: BLOOD SPECIMEN Ordering Facility: [facility] Address: [address] [place] [address] Performed By: #### 5 8410-2 #### [facility] CLIA [id number] [address] OF [place] MCH (RBC) [Entitic mass] 29.9 pg Normal 26.0-34.0 [facility] Comment on above: Order Comment: Speci men Type: BLOOD SPECIMEN Ordering Facility: [facility] Address: [address] [place] [address] Performed By: #### 5 8410-2 #### [facility] CLIA [id number] [address] [place] [address] [place] MCHC (RBC) [Mass/Vol] 32.4 g/dL Normal 30.5-36.0 [facility] Comment on above: Order Comment: Speci men Type: BLOOD SPECIMEN Ordering Facility: [facility] Address: [address] [place] [address] Performed By: #### 5 8410-2 #### [facility] CLIA [id number] [address] [place] [address] [place] MCV (RBC) [Entitic vol] 92.3 fL Normal 80.0-100.0 [facility] Comment on above: Order Comment: Speci men Type: BLOOD SPECIMEN Ordering Facility: [facility] Address: [address] [place] [address] Performed By: #### 5 8410-2 #### [facility] CLIA [id number] [address] [place] [address] [place] Monocytes (Bld) [#/Vol] 1.31 10*3/uL High <0.87 [facility] Comment on above: Order Comment: Speci men Type: BLOOD SPECIMEN Ordering Facility: [facility] Address: [address] [place] [address] Performed By: #### 5 8410-2 #### [facility] CLIA [id number] [address] [place] [address] Monocytes/100 WBC (Bld) 10.1 % Normal [facility] Comment on above: Order Comment: Speci men Type: BLOOD SPECIMEN Ordering Facility: [facility] Address: [address] [place], [place] [address] Performed By: #### 5 8410-2 #### [facility] CLIA [id number] [address] [place] [address] [place] Neutrophils (Bld) [#/Vol] 10.78 10*3/uL High 1.45-7.50 [facility] Comment on above: Order Comment: Speci men Type: BLOOD SPECIMEN Ordering Facility: [facility] Address: [address] [place], [place] [address] Performed By: #### 5 8410-2 #### [facility] CLIA [id number] [address] [place] [address] [place] Neutrophils/100 WBC (Bld) 83.1 % Normal [facility] Comment on above: Order Comment: Speci men Type: BLOOD SPECIMEN Ordering Facility: [facility] Address: [address] [place] [address] Performed By: #### 5 8410-2 #### [facility] CLIA [id number] [address] [place] [address] [place] Nucleated RBC (Bld) [#/Vol] 10*3/uL Normal <0.01 [facility] Comment on above: Order Comment: Speci men Type: BLOOD SPECIMEN Ordering Facility: [facility] Address: [address] [place] [address] Performed By: #### 5 8410-2 #### [facility] CLIA [id number] [address] [place] [address] [place] Nucleated RBC/100 WBC (Bld) [Ratio] 0.0 /100 WBC Normal [facility] Comment on above: Order Comment: Speci men Type: BLOOD SPECIMEN Ordering Facility: [facility] Address: [address] [place], [place] [address] Performed By: #### 5 8410-2 #### [facility] CLIA [id number] [address] [place] [address] [place] Platelet mean volume (Bld) [Entitic vol] 8.8 fL Low 9.0-12.7 [facility] Comment on above: Order Comment: Speci men Type: BLOOD SPECIMEN Ordering Facility: [facility] Address: [address] [place] [address] Performed By: #### 5 8410-2 #### [facility] CLIA [id number] [address] [place] [address] [place] [facility] [place] Platelets (Bld) [#/Vol] 195 10*3/uL Normal 150-400 [facility] Comment on above: Order Comment: Speci men Type: BLOOD SPECIMEN Ordering Facility: [facility] Address: [address] [place] [address] Performed By: #### 5 8410-2 #### [facility] CLIA [id number] [address] [place] [address] [place] RBC (Bld) [#/Vol] 3.88 10*6/uL Low 4.20-6.00 [facility] Comment on above: Order Comment: Speci men Type: BLOOD SPECIMEN Ordering Facility: [facility] Address: [address] [place] [address] Performed By: #### 5 8410-2 #### [facility] CLIA [id number] [address] [place] [address] [place] WBC (Bld) [#/Vol] 12.96 10*3/uL High 3.70-11.00 [facility] Comment on above: Order Comment: Speci men Type: BLOOD SPECIMEN Ordering Facility: [facility] Address: [address] [place], [place] [address] Performed By: #### 5 8410-2 #### [facility] CLIA [id number] [address] [place] [address] [place] Magnesium SerPl-mCncon 12-25 Magnesium [Mass/Vol] 1.9 mg/dL Normal 1.6-2.6 [facility] Comment on above: Order Comment: Speci men Type: BLOOD SPECIMEN Ordering Facility: [facility] Address: [address] [place], [place] [address] Performed By: #### 5 8410-2 #### [facility] CLIA [id number] [address] [place], [place] [address] [facility] [place] Phosphate SerPl-mCncon 12-25 Phosphate [Mass/Vol] 3.4 mg/dL Normal 2.5-4.9 [facility] Comment on above: Order Comment: Speci men Type: BLOOD SPECIMEN Ordering Facility: [facility] Address: [address] [place] [address] Result Comment: Elev ated m-protein (paraprotein) levels in the serum may be exhibited in patients with monoclonal gammopathies, causing falsely elevated inorganic phosphorus results. Performed By: #### 5 8410-2 #### [facility] CLIA [id number] [address] [place], [place] [address] [facility] THERAPY NTon 12-25-2021 THERAPY NT HNO ID: [id number] Author: May Santoro, OTR/L Service: Occupational Therapy Author Type: Occupational Therapist Type: Therapy (PT/OT/Speech/Resp) Filed: 12/25/2021 1:47 PM Note Text: Occupational Therapy Evaluation SERVICE DATE: 12/25/2021 SERVICE TIME: 921 to 1009 ROOM: [place] [address] Recommended Discharge Disposition: Home Recommended Discharge Disposition Comments: pt presents at min assist level with UB ADLs d/t numbness- pt notes he has 24/ assist from caregiver whom can assist Anticipated Discharge Needs: Supervision at Home;Physical Assist at Home Physical Assist at Home for: Self Care Supervision at Home due to: Decreased safety awareness OT 6 Clicks Score: 19 Precautions/Activity Restrictions: Shoulder Precautions;Weight Bearing Restrictions Extremity With Weight Bearing Restricted: Left Lower Extremity Left Lower Extremity Weight Bearing Status: NWB Shoulder Precautions: External rotation limitation;Forward elevation limitation Shoulder External Rotation Limited To: 0 Shoulder Forward Elevation Limited To: 0 Current Hospital Course: Elective Surgery Reason for Hospital Admission: s/p Left Reverse TSA performed by Dr. Henry on 12/24/21 Relevant Past Medical History: CVA, CABG Treatment Interventions: Education;Self Care / Home Management Home Environment Patient Lives With: Self/Alone;Other: See Comment Comments: plan for 3 days of 24/7 from property maintenance technician - can stay as long as needed Assistance Available: 24 Hour Entry To Home: Ramp Tub/Shower Type: WIS with rails and shower chair Laundry: Laundry FFSU Equipment Owned: Grab Bars-Shower;Grab Bars-Toilet;Shower Chair;Commode-Raised;El evated Toilet Seat Prior Functional Level: Within Functional Limits Prior Functional Level Comments: pt notes independence with ADLs, has cleaning lady; denies device use; denies falls CURRENT FUNCTIONAL STATUS: Most recent performance Current Activities of Daily Living Assist Level Additional Information Feeding Independent Grooming Supervision Bathing Upper Body Minimal Assistance Bathing Lower Body Supervision Dressing Upper Body Minimal Assistance Assist to don sling and shirt d/t numbness in LUE - pt has assist at home Dressing Lower Body Supervision Toileting Supervision Instrumental Activities of Daily Living Assist Level Additional Information Meal/Beverage Prep Cleaning Laundry Medication Management with Strategies Functional Mobility Assist Level Additional Information Rolling Supine to Sit Supervision Sit to Supine Supervision Scooting Sit to Stand Supervision Stand to Sit Supervision Bed to Chair Toilet/Commode Supervision;Additional Information Shower Functional Mobility Stand By Assistance;Additional Information None Blank crockett indicate activity not attempted Hand Dominance: Right Range of Motion: ROM Limitation Comments ROM Limitation Comments: JAC NT - numb; NEELAE Strength: Strength Limitation Comments Strength Limitation Comments: JAC NT; BEULAH WFL Balance: Dynamic Sitting;Dynamic Standing Dynamic Sitting Balance: Good Patient accepts moderate challenge, able to maintain balance while picking up object off floor Dynamic Standing Balance: Fair Patient accepts minimal challenge, able to maintain balance while turning head/trunk Learning/Educational Needs: Discharge Plan;Pain Management;Plan of Care;Precautions;Safety ;Self Care Goals for Plan of Care: Patient /Caregiver Goals: Go Home Goals: Patient will demonstrate understanding of importance of mobility during hospital stay and resolve all self-care, cognitive and/or coping needs identified. Rehab Potential: Good Patient will be discontinued from Occupational Therapy when no further skilled needs are identified in this setting. PLAN: OT Frequency: Discontinue therapy services Reasons Therapy Services Discontinued: Goals met Plan of Care developed with: Patient TREATMENT INTERVENTIONS: Therapy Diagnosis: Decreased activities of daily living (ADL) Interventions Provided: Evaluation;Self Longterm Management (29193) $ Evaluation-Low (17606) Billed Units: 1 unit Self Longterm Management (17075) Treatment Minutes: 33 $ Self Longterm Management (70971) Billed Units: 2 units pt was educated on precautions, NWB RUE, sling management, ADLs and HEP. pt was educated on donning and doffing sling, pt provided with handout for furhter education. pt was educated on UB and LB dressing one handed, pt indicated and demo understanding by donning pants and shirt. pt was educated on donning, sling, pt able to don with Assist - has assist at d/c. pt educated on home safety. this therapist answered all of pt's home going questions. Timed Code Treatment (minutes): 33 Skilled Treatment Time (minutes): 48 Please see discipline specific clinical documentation flowsheet for complete details for this therapy evaluation/treatment. SIGNATURE: May Santoro OTR/L PATIENT (more content not included)... [facility] THERAPY NT HNO ID: [id number] Author: Robyn Haider, PT, DPT Service: Physical Therapy Author Type: Physical Therapist Type: Therapy (PT/OT/Speech/Resp) Filed: 12/25/2021 11:25 AM Note Text: Physical Therapy Evaluation SERVICE DATE: 12/25/2021 SERVICE TIME: 1024 to 1055 ROOM: [place] [address] Recommended Discharge Disposition: Home PT Recommended Discharge Disposition Comments: [facility] PT Recommended Discharge Equipment: Cane Patient tolerated PT eval well. Educated patient on shoulder precautions, weight bearing status, sling enedelia/doff and therapeutic exercise. Patient completed functional mobility of transfers and gait with independence. No loss of balance, no signs of fatigue, no further skilled acute care PT need. Recommend home with HEP upon acute care discharge. Pt notes 24.7 supv per multiple ladies to assist. Pt demonstrates understanding for assistance instructions to helpers. Educated on sling don/doff within limitations of precautions. Educated/demonstrated/p erformed elbow flexion/extension and elbow supination/pronation, wrist flexion/extension. PT 6 Clicks Score: 24 Precautions/Activity Restrictions: Shoulder Precautions;Weight Bearing Restrictions Extremity With Weight Bearing Restricted: Left Lower Extremity Left Lower Extremity Weight Bearing Status: NWB Shoulder Precautions: External rotation limitation;Forward elevation limitation Shoulder External Rotation Limited To: 0 Shoulder Forward Elevation Limited To: 0 Current Hospital Course: Elective Surgery Reason for Hospital Admission: s/p Left Reverse TSA performed by Dr. Henry on 12/24/21 Relevant Past Medical History: CVA, CABG Response to Therapy Interventions: Good participation in activities Assessment Comments: Pt demonstrates understanding of asking for assist Treatment Interventions: Education Home Environment Patient Lives With: Self/Alone;Other: See Comment Comments: plan for 3 days of /7 from property maintenance technician - can stay as long as needed Assistance Available: 24 Hour Entry To Home: Ramp Tub/Shower Type: WIS with rails and shower chair Laundry: Laundry FFSU Equipment Owned: Grab Bars-Shower;Grab Bars-Toilet;Shower Chair;Commode-Raised;El evated Toilet Seat Prior Functional Level: Within Functional Limits Prior Functional Level Comments: pt notes independence with ADLs, has cleaning lady; denies device use; denies falls Patient Report: I have so many lady to help me CURRENT FUNCTIONAL STATUS: Most recent performance Current Functional Mobility Assist Level Additional Information Rolling Supine to Sit Sit to Supine Scooting Sit to Stand Supervision Stand to Sit Supervision Bed to Chair Toilet/Commode Gait Supervision;Additional Information Gait Device: Cane;Other: See Comment Gait Distance (feet): 20 feet x 2- three trials Completed x 3 trials of ambulation. Trial one of ambulation with increase step length unsteady and cues for slowing steps, one slight LOB laterally with pt able to recover with steppage gait. Trial 2 completed ambulation with straight cane in RUE, step to gait pattern, short step length, wide LAYLA Stairs Curb Step Car Transfer Blank crockett indicate activity not attempted -HLM: 7: Walk 25 feet or more Learning/Educational Needs: Discharge Plan;Equipment;Family Education/Training;Func tional Activities/Mobility;[place] nges in Plan of Care;Precautions Goals for Plan of Care: Progress Toward Goals: Progressing as expected Patient will be discontinued from Physical Therapy when no further skilled needs are identified in this setting. PLAN: PT Frequency: Discontinue therapy services Reasons Therapy Services Discontinued: No skilled needs Plan of Care developed with: Patient TREATMENT INTERVENTIONS: Therapy Diagnosis: No Skilled Need Interventions Provided: Evaluation;Therapeutic Activity (31606) $ Evaluation-Low (17006) Billed Units: 1 unit Therapeutic Activity (01709) Treatment Minutes: 16 $ Therapeutic Activity (56807) Billed Units: 1 unit Training AND education provided in: Advanced balance activities, Assistive device use, Bed mobility, Discharge planning, Equipment, Exercise program, Falls prevention The following therapeutic skills were used: Cues for sequencing/proper technique for activity Timed Code Treatment (minutes): 16 Skilled Treatment Time (minutes): 31 Please see discipline specific clinical documentation flowsheet for complete details for this therapy evaluation/treatment. SIGNATURE: Robyn Haider PT, DPT PATIENT NAME: Jacky Ellis DATE: December 25, 2021 TIME: 11:23 AM [facility] ANES POSTPROC EVALon 022 ANES POSTPROC EVAL HNO ID: [id number] Author: Donte Cohen MD Service: ? Author Type: Physician Type: Anesthesia Postprocedure Evaluation Filed: 12/24/2021 11:24 AM Note Text: POST ANESTHESIA EVALUATION NOTE : 1950 Procedure Summary Date: 12/24/21 Room / Location: OR / OR Anesthesia Start: 739 Anesthesia Stop: 1035 Procedure: LEFT REVERSE TOTAL SHOULDER REPLACEMENT (Left: Shoulder) Diagnosis: Primary osteoarthritis of left shoulder (Primary osteoarthritis of left shoulder [M19.012]) Surgeons: Nash Henry MD Responsible Provider: Donte Cohen MD Anesthesia Type: general ASA Status: 3 Anesthesia Type: general Airway Type: ETT Last Vitals Vitals Value Taken Time BP 115/65 12/24/21 1115 Temp 36.5 ?C (97.7 ?F) 12/24/21 1034 Pulse 60 12/24/21 1122 Resp 16 12/24/21 1115 SpO2 96 % 12/24/21 1122 Vitals shown include unvalidated device data. Post Anesthesia Patient Status Patient Evaluation: PACU. PACU/ICU Patient Condition: stable. Anticipated Disposition: inpatient floor planned admission. Neurological Status: aware and responsive. Pulmonary Status: breathing comfortably on room air Airway Control: returned to baseline unsupported. Cardiovascular Status: stable. Pain Management: clinically adequate Postoperative Hydration: acceptable. Intraoperative Events: no significant anesthesia events Post Operative Nausea/Vomiting Status: no significant post operative nausea or vomiting Anesthetic Observations: Recommendation: continue current plan of care. Anesthesia Observations No Documentation SIGNATURE: Donte Cohen MD PATIENT NAME: Jacky Ellis DATE: December 24, 2021 TIME: 11:23 AM CSN: [id number] [facility] ANES PRE-OPon 12-24-2021 ANES PRE-OP HNO ID: [id number] Author: Donte Cohen MD Service: ? Author Type: Physician Type: Anesthesia Preprocedure Evaluation Filed: 12/24/2021 7:44 AM Note Text: ANESTHESIOLOGY DAY OF SURGERY NOTE : 1950 Procedure Information Date/Time: 12/24/21729 Procedure: LEFT REVERSE TOTAL SHOULDER REPLACEMENT (Left) Location: MR OR 11 / MR OR Surgeons: Nash Henry MD Estimated body mass index is 31.98 kg/m? as calculated from the following: Height as of this encounter: 188 cm (6' 2). Weight as of this encounter: 113 kg (249 lb 1.6 oz). Most recent hematocrit and potassium results: Hematocrit 36.5 12/02/2021 Potassium 4.4 12/02/2021 Relevant Problems CARDIO (+) Atrial fibrillation (HCC) (+) Hx of CABG NEURO-PSYCH (+) Personal history of colonic polyps (+) Stroke (HCC) ckd3 I - PHYSICAL EVALUATION AIRWAY Patient intubated: No. Tracheostomy tube not present Mallampati: III. TM distance: >3 FB. Neck ROM: full ROM without neurological symptoms. Mouth opening: adequate. Short neck: no. Thick neck: no DENTAL Dentures, upper: complete. Dentures, lower: partial. II - ANESTHESIA PLAN ASA Score: 3 Anesthetic Plan: general The patient is not a current smoker. NPO Status: adequate Monitoring plan: standard ASA. Postoperative analgesic plan: per surgical service. Patient / Surrogate agrees to blood products: Yes Vitals Value Taken Time BP 126/72 12/24/21 0700 Pulse 51 12/24/21 0722 Resp 18 12/24/21 0559 Temp 36.2 ?C (97.2 ?F) 12/24/21 0559 SpO2 98 % 12/24/21721 Vitals shown include unvalidated device data. Facility-Administered Medications as of 12/24/2021 Medication Dose Route Frequency - lactated ringers iv infusion 30 mL/hr INTRAVENOUS CONTINUOUS - [COMPLETED] celecoxib 400 mg cap(s) (CeleBREX) 400 mg ORAL ONCE - [COMPLETED] pregabalin 75 mg cap(s) (LYRICA) 75 mg ORAL ONCE - [COMPLETED] acetaminophen 1,000 mg tab(s) (TYLENOL) 1,000 mg ORAL ONCE - [COMPLETED] metoclopramide HCl 10 mg tab(s) (REGLAN) 10 mg ORAL ONCE - [COMPLETED] dexAMETHasone sodium phosphate 10 mg injection (DECADRON) 10 mg INTRAVENOUS ONCE - ceFAZolin iv piggyback 2 g in D5W (iso-osmotic) 100 mL (ANCEF) 2 g INTRAVENOUS ONCE - vancomycin 1.75 g in D5W 500 mL (VANCOCIN) 0.015 g/kg/dose INTRAVENOUS ONCE - povidone-iodine 10 % solution (BETADINE) TOPICAL PRN - NaCl 0.9% iv flush bag 20 mL INTRAVENOUS PRN Outpatient Medications as of 12/24/2021 Medication Sig - carvedilol (COREG) 25 mg tablet Take 25 mg by mouth twice daily with meals. - tiZANidine (ZANAFLEX) 4 mg tablet Take 4 mg by mouth at bedtime as needed. - rivaroxaban (XARELTO) 15 mg tablet Take 15 mg by mouth daily with dinner. LAST DOSE 72 HOURS PRE OP PER DR HENRY, DR KOWALSKI AWARE AND OKAY WITH - amiodarone (PACERONE) 200 mg tablet Take 200 mg by mouth once daily. AM PER DR KOWALSKI, HX AFIB - spironolactone (ALDACTONE) 25 mg tablet Take 25 mg by mouth once daily. AM, EVERY OTHER DAY - amLODIPine (NORVASC) 5 mg tablet Take 5 mg by mouth once daily. AM I have interviewed and examined the patient. I have reviewed the medical record and/or the pre-anesthesia evaluation, pertinent labs, and test results. This contains updated information obtained within 48 hours of Surgery/Procedure. SIGNATURE: Donte Cohen MD PATIENT NAME: Jacky Ellis DATE: December 24, 2021 TIME: 7:23 AM CSN: [id number] [facility] BRIEF OP NOTon 12-24-2021 BRIEF OP NOT HNO ID: [id number] Author: Nash Henry MD Service: Orthopaedic Surgery Author Type: Physician Type: Brief Op Note Filed: 12/24/2021 10:33 AM Note Text: BRIEF OPERATIVE / PROCEDURE NOTE LOG ID: [id number] SURGERY/PROCEDURE DATE: 12/24/2021 INCISION/PROCEDURE START TIME: 8:13 AM INCISION CLOSE/PROCEDURE END TIME: 10:24 AM SURGEON(S)/PROCEDURALIS T(S) AND PHOTOGRAMMETRIC SURVEYOR(S): Surgeon(s) and Role: * Nash Henry MD - Primary Insurance Verification Representative: Rosetta Benson RN SURGERY/PROCEDURE(S): LEFT REVERSE TOTAL SHOULDER REPLACEMENT: [id number] (CPT?) ANESTHESIA: General FINDINGS: Arthritis ESTIMATED BLOOD LOSS: 100 mls SPECIMENS: None COMPLICATIONS: None PRE-OP/PRE-PROCEDURE DIAGNOSIS: Left shoulder arthritis POST-OP/POST-PROCEDURE DIAGNOSIS: Same as Preop SIGNATURE: Nash Henry MD PATIENT NAME: Jacky Ellis DATE: December 24, 2021 TIME: 10:31 AM [facility] CONFIRM BLOOD TYPEon 022 ABO A [facility] Comment on above: Order Comment: Speci men Type: BLOOD SPECIMENOrdering Facility: [facility] Address: [address] [place] [address] Performed By: #### C ONABO ####[facility] BLOOD BANKCLIA [id number] [place] [address] [place] Rh Nom (Bld) Positive [facility] Comment on above: Order Comment: Speci men Type: BLOOD SPECIMENOrdering Facility: [facility] Address: [address] [place] [address] Performed By: #### C ONABO ####[facility] BLOOD BANKCLIA [id number] [address] CONSULTon 12-24-2021 CONSULT HNO ID: [id number] Author: Reshma Alfaro APRN.[employer]ACH[employer] Service: Hospital Medicine Author Type: Nurse Practitioner Type: Consults Filed: 12/24/2021 11:13 AM Note Text: Attestation signed by Siria Lyons MD at 12/24/2021 8:45 PM [facility] STAFF PHYSICIAN NOTE OF PERSONAL INVOLVEMENT IN CARE IMPRESSION: Patient is a 71 year old male status post left shoulder replacement PLAN: Consult for medical management while patient is admitted to the hospital. I have reviewed the documentation above obtained and documented by the Nurse Practitioner and I have personally performed the substantive portion of the visit which includes the medical decision making and have reviewed and updated the problem list as appropriate. I have personally performed a face to face assessment of the patient and I have discussed the case and management of the patient's care. Counseling (Inpatient): I personally spent 10 total minutes involved in the care of this patient. Greater than 50% of the time was spent counseling and/or coordinating care for the patient, the nature of which is noted above. STAFF PHYSICIAN:: Siria Lyons MD DATE of SERVICE: 12/24/2021 TIME of SERVICE: 8:45 PM INITIAL CONSULT NOTE SERVICE DATE: 12/24/2021 SERVICE TIME: 11:05 AM REASON FOR CONSULT: Medical management REQUESTING PHYSICIAN: Dr. Henry PRIMARY CARE PHYSICIAN: Hoda Grayson MD Subjective Mr. Ellis is a 71 year old male who presents for left reverse total shoulder replacement by Dr. Henry. Due to failed conservative management patient elected for surgical repair. Patient seen and evaluated postoperatively in PACU with no complaints of surgical pain. He denies chest pain, shortness of breath, dizziness, nausea, vomiting. We have been asked to see for medical management. FUNCTIONAL STATUS: Partially dependent PAST MEDICAL HISTORY Diagnosis Date Atrial fibrillation ([facility]) [facility] H/O colonoscopy WNL PER PT 2019 DR FALK Hx of CABG X3 VESSELS 11/13/2020 [facility] Scoliosis CHRONIC BACK PAIN PER PRIMARY Stroke (HCC) NO RESIDUAL 11/13/2020 [facility] Unspecified essential hypertension Essential hypertension PAST SURGICAL HISTORY Procedure Laterality Date CABG (3) VEIN GRAFTS AND ARTERIAL GRAFT(S) X3 VESSELS 11/13/2020 [facility] CARDIOVERSION X2 DR KOWALSKI, [facility] FOR AFIB COLONOSCOPY FLX DX W/COLLJ SPEC WHEN PFRMD 06/14/2014 PAST SURGICAL HISTORY OF 06/11/1959 right collar bone surgery RPR 1ST INGUN HRNA AGE 4 YRS/> REDUCIBLE 09/10/1956 Hernia repair, inguinal,right FAMILY HISTORY Problem Relation Age of Onset Cancer Mother Cancer Sister Colon Cancer Mother Colon Cancer Brother at 60 Social History Tobacco Use Smoking status: Never Smokeless tobacco: Never Substance Use Topics Alcohol use: Not Currently Drug use: Never Aspirin 500 mg tab, Take 500 mg by mouth every 4 hours as needed. Will stop today takes for pain, Disp: , Rfl: , Past Week at 0800 carvedilol (COREG) 25 mg tablet, Take 25 mg by mouth twice daily with meals., Disp: , Rfl: , 12/24/2021 at 0200 acetaminophen (TYLENOL EXTRA STRENGTH) 500 mg tablet, Take 500 mg by mouth every 8 hours as needed for pain., Disp: , Rfl: tiZANidine (ZANAFLEX) 4 mg tablet, Take 4 mg by mouth at bedtime as needed., Disp: , Rfl: rivaroxaban (XARELTO) 15 mg tablet, Take 15 mg by mouth daily with dinner. LAST DOSE [address] HOURS PRE OP PER DR HENRY, DR KOWALSKI AWARE AND OKAY WITH, Disp: , Rfl: , 12/20/2021 at 1500 amiodarone (PACERONE) 200 mg tablet, Take 200 mg by mouth once daily. AM PER DR KOWALSKI, HX AFIB, Disp: , Rfl: spironolactone (ALDACTONE) 25 mg tablet, Take 25 mg by mouth once daily. AM, EVERY OTHER DAY, Disp: , Rfl: amLODIPine (NORVASC) 5 mg tablet, Take 5 mg by mouth once daily. AM, Disp: , Rfl: Allergies As of Date: 11/17/2021 Allergen Noted Reaction PENICILLINS 07/05/2008 Fully Assessed 06/15/2014 COMPLETE REVIEW OF SYSTEMS: Review of Systems Constitutional: Negative for chills, fatigue and fever. HENT: Negative for congestion, sinus pressure, sore throat and trouble swallowing. Eyes: Negative for visual disturbance. Respiratory: Negative for cough, chest tightness, shortness of breath, wheezing and dyspnea. Cardiovascular: Negative for chest pain, palpitations and leg swelling. Gastrointestinal: Negative for abdominal distention, abdominal pain, blood in stool, constipation, diarrhea, nausea and vomiting. Endocrine: Negative for cold intolerance, heat intolerance, polydipsia, polyphagia and polyuria. Genitourinary: Negative for difficulty urinating, dysuria, frequency, hematuria and urgency. Musculoskeletal: Negative for back pain, gait problem and joint swelling. Skin: Negative for color change and rash. (more content not included)... Normal [facility] HISTORY PHYSICALon HISTORY PHYSICAL HNO ID: [id number] Author: Nash Henry MD Service: Orthopaedic Surgery Author Type: Physician Type: HANDP Filed: 12/24/2021 7:19 AM Note Text: UPDATED HISTORY AND PHYSICAL EXAMINATION SERVICE DATE: 12/24/2021 SERVICE TIME: 717 PHYSICAL EXAM MUST BE COMPLETED ON ADMISSION The History and Physical (completed in the past 30 days) has been reviewed and the patient has been examined. The contents accurately reflect the patient's condition with the following additions or revisions since the HANDP was completed. Examination indicates no changes. This HANDP can be found in the paper record dated 12/12/21. SIGNATURE: Nash Henry MD PATIENT NAME: Jacky Ellis DATE: December 24, 2021 TIME: 7:18 AM [facility] OPERATIVE NOon 12-24-2021 OPERATIVE NO HNO ID: [id number] Author: Nash Henry MD Service: Orthopaedic Surgery Author Type: Physician Type: Operative Report Filed: 12/24/2021 1:57 PM Note Text: [facility] - Operative Notes JACKY ELLIS : 1950 AGE: 71 SEX: M CSN: [id number] [facility]: LOCATION: [place] [address] ATTENDING PHYSICIAN: NASH HENRY DATE OF SERVICE: 12/24/2021 PREOPERATIVE DIAGNOSIS: Left shoulder severe osteoarthritis. POSTOPERATIVE DIAGNOSIS: Left shoulder severe osteoarthritis. OPERATION: Reverse shoulder arthroplasty, left shoulder. SURGEON: Nash Henry MD ANESTHESIOLOGIST: Gregor Benitez MD ANESTHESIA: General with a scalene block, including Exparel. ESTIMATED BLOOD LOSS: 100 mL. SPECIMENS: None. IMPLANTS: A [employer] Comprehensive Reverse Shoulder System with a size mini-glenosphere baseplate, 1 central and 4 peripheral locking screws, a 36-mm glenosphere, a 15-mm mini-humeral stem, and a standard-thickness humeral tray and standard humeral bearing. COMPLICATIONS: None immediate. INDICATIONS: Patient is a 71-year-old male with progressive left shoulder pain secondary to severe arthritis. He has some deformity and posterior wear on x-rays. We discussed options and decided to proceed with reverse shoulder arthroplasty, given his age and x-rays. Risks, benefits, and alternatives to surgery were discussed in detail. Informed consent was obtained. PROCEDURE: Left shoulder was marked in the preoperative holding area. Block was instituted by anesthesia. Taken to the OR where general anesthesia was administered. A preoperative dose of IV antibiotics was given. Tranexamic acid 1 g IV was given prior to incision, and 1 g at the end of the case. His neck was in a neutral position. All bony prominences and nerves were well padded. A proper timeout was completed. After this, shoulder and arm were prepped and draped in sterile fashion. A standard deltopectoral approach was utilized. Skin incision was made. Dissection was carried down through subcutaneous tissues. The deltopectoral interval and cephalic vein were identified. The cephalic vein was retracted medially with the pectoral and the deltoid laterally. The adhesions were freed up in the subacromial space. The upper pectoral tendon was released. Biceps tenotomy was performed off the glenoid and the excess tendon from the intraarticular space discarded. A tenotomy was done through the subscapularis tendon. The progressive external rotation was done, as we slowly peeled the inferior capsule off bone, with care taken to stay on bone and protect the axillary nerve. Once the humeral head was fully exposed, osteophytes were removed with a rongeur. Reaming was then done on the humeral head. Humeral head cut was then done at 30 degrees of retroversion at the appropriate height. Broaching was then done at 30 degrees of retroversion up to a size 15 mm. This gave good fit. The humerus was then retracted posteriorly. There were several loose ossifications, primarily at the posterior/superior glenoid and the anterior glenoid, which were carefully dissected out with the Bovie and then removed through a rongeur. Care was taken to avoid any excess traction throughout the glenoid exposure and protect the neurovascular structures. Once the glenoid was exposed, it was severely arthritic with sclerotic, hard bone throughout. The mini-baseplate guide was then used, and a pin was placed to 10-degree inferior tilt. Reaming was done of the glenoid. The glenoid baseplate was then placed, followed by central screw, which gave very good purchase in bone. Then 4 peripheral locking screws were placed. The final glenosphere was then impacted into place, with good fixation. Any additional osteophytes were removed inferiorly. Finally, trialing was done. The standard-standard humeral tray and bearing fit best. The trial stem was removed, and the final 15-mm mini-humeral stem was press-fit into place, following extensive irrigation. Trialing again confirmed standard-standard bearing was the best fit. The final bearing and tray were placed and Dior taper engaged. The shoulder was then reduced, and with this in place the shoulder had good range of motion and was stable throughout. Less than 1 mm of pistoning was present. We removed some bone on the greater tuberosity to prevent impingement against the overlying acromion. The shoulder had good motion and stability at this point. It was copiously irrigated out with pulsatile lavage. The subscapularis was not repaired as this would have required excessive tension on it. The shoulder remained stable. The deltopectoral interval was reapproximated with 0-0 Vicryl suture. Prior to closure, 1 g of vancomycin powder was placed into the joint following irrigation with the pulsatile lavage. Subcutaneous tissu (more content not included)... Normal [facility] SARS-CoV-2 RNA Resp Ql RIVKA+p felipe 12-24-2021 SARS-CoV-2 (COVID-19) RNA RIVKA+probe Ql (Resp) SARS-CoV-2 (Agent of COVID-19) Not Detected by RT-PCR or equivalent method. Normal Not Detected [facility] Comment on above: Order Comment: Speci men Type: BLOOD SPECIMEN [facility]: [address] [place] [address] Result Comment: This test has been authorized by FDA under an Emergency Use Authorization (EUA). Performed By: #### 5 8410-2 #### [facility] CLIA [id number] [address] [place], [place] [id number] [facility] CNPVianey 12-23-2021 CNPN Telephone (PRANMY) JACKY ELLIS ([id number]) 1950 M Date Time Provider Department 12/23/21 MEGHANA CHRISTENSEN During your visit today, we recorded the following information about you: Allergies As of Date: 12/23/2021 Noted Allergy Reaction PENICILLINS 07/05/2008 5 - Intolerance Comments: SKIN PEELS OFF PALMS OF HANDS AND FEET, YEARS AGO Date Reviewed: 12/02/2021 Reviewed by: Veronica Higgins RN - Fully Assessed Reason for Visit: note to anesthesia to reveiw clearance [Other] Prescriptions as of 12/23/2021 - Aspirin 500 mg tab Take 500 mg by mouth every 4 hours as needed. Will stop today takes for pain - acetaminophen (TYLENOL EXTRA STRENGTH) 500 mg tablet Take 500 mg by mouth every 8 hours as needed for pain. - tiZANidine (ZANAFLEX) 4 mg tablet Take 4 mg by mouth at bedtime as needed. - carvedilol (COREG) 25 mg tablet Take 25 mg by mouth twice daily with meals. - rivaroxaban (XARELTO) 15 mg tablet Take 15 mg by mouth daily with dinner. LAST DOSE 72 HOURS PRE OP PER DR DEX ALLRED AWARE AND OKAY WITH - amiodarone (PACERONE) 200 mg tablet Take 200 mg by mouth once daily. AM PER DR KOWALSKI, HX AFIB - spironolactone (ALDACTONE) 25 mg tablet Take 25 mg by mouth once daily. AM, EVERY OTHER DAY - amLODIPine (NORVASC) 5 mg tablet Take 5 mg by mouth once daily. AM Problem List As Of Date 12/23/2021 Noted Resolved SCREEN (SEE ALSO ADMISSION) CANCER - COLON [Z*07/05/2008 INGUINAL HERNIA, UNILATERAL W/O GANGRENE/OBSTRU* 009 Personal history of colonic polyps [Z86.010] 05/29/2014 Encounter Status:Closed by MEGHANA CHRISTENSEN on 12/23/21 [facility] LABORATORYOrdered By: Rosana Teague on 12-16-2021 Albumin BCP dye [Mass/Vol] 3.7 G/dL Invalid Interpretation Code 3.4 - 4.8 G/dL AO ADM SS Albumin/Globulin [Mass ratio] 1.0 {ratio} Invalid Interpretation Code 1.1 - 2.5 ratio AO ADM SS ALP [Catalytic activity/Vol] 139 U/L Invalid Interpretation Code 40 - 135 U/L AO ADM SS ALT With P-5'-P [Catalytic activity/Vol] 27 U/L Invalid Interpretation Code 16 - 63 U/L AO ADM SS AST With P-5'-P [Catalytic activity/Vol] 23 U/L Invalid Interpretation Code 10 - 40 U/L AO ADM SS Bilirubin [Mass/Vol] 0.6 mg/dL Invalid Interpretation Code 0.2 - 1.0 mg/dL AO ADM SS Calcium [Mass/Vol] 9.6 mg/dL Invalid Interpretation Code 8.4 - 10.2 mg/dL AO ADM SS Chloride [Moles/Vol] 103 mmol/L Invalid Interpretation Code 98 - 107 mmol/L AO ADM SS CO2 [Moles/Vol] 27 mmol/L Invalid Interpretation Code 23 - 31 mmol/L AO ADM SS Creatinine [Mass/Vol] 1.71 mg/dL Invalid Interpretation Code 0.70 - 1.30 mg/dL AO ADM SS Electrolyte Balance 8.0 mEq/L Invalid Interpretation Code 4.0 - 15.0 mEq/L AO ADM SS Globulin 3.7 G/dL Invalid Interpretation Code AO ADM SS Glucose [Mass/Vol] 101 mg/dL Invalid Interpretation Code 83 - 110 mg/dL AO ADM SS Natriuretic peptide.B prohormone N-Terminal [Mass/Vol] 4911 pg/mL Invalid Interpretation Code 0 - 125 pg/mL AO ADM SS Potassium [Moles/Vol] 4.9 mmol/L Invalid Interpretation Code 3.5 - 5.1 mmol/L AO ADM SS Protein [Mass/Vol] 7.4 G/dL Invalid Interpretation Code 6.4 - 8.2 G/dL AO ADM SS Sodium [Moles/Vol] 138 mmol/L Invalid Interpretation Code 136 - 145 mmol/L AO ADM SS TSH Qn 4.10 m[IU]/L Invalid Interpretation Code 0.36 - 3.74 mcIU/mL AO ADM SS Urea nitrogen [Mass/Vol] 30 mg/dL Invalid Interpretation Code 7 - 18 mg/dL AO ADM SS Urea nitrogen/Creatinine [Mass ratio] 18 ratio Invalid Interpretation Code 7 - 27 ratio AO ADM SS LABORATORYOrdered By: SYSTEM SYSTEM on 12-16-2021 GFR 48 ml/min/1.73sqm Invalid Interpretation Code AO Chemistry S GFR Non- 40 ml/min/1.73sqm Invalid Interpretation Code AO Chemistry S ACTIVATED PTTon 12-02-2021 aPTT Coag (PPP) [Time] 36.0 s High 22.0 - 31.5 sec [facility] CBC panel Auto (Bld)on 12-02 Erythrocyte distribution width (RBC) [Ratio] 17.1 % High 11.5-15.0 [facility] Comment on above: Order Comment: Speci men Type: BLOOD SPECIMEN [facility] Facility: [facility] Address: [address] [place] [address] Performed By: #### 5 8410-2 #### [facility] CLIA [id number] [address] [place] [address] [place] Hematocrit (Bld) [Volume fraction] 36.5 % Low 39.0-51.0 [facility] Comment on above: Order Comment: Speci men Type: BLOOD SPECIMEN Ordering Facility: [facility] Address: [address] [place] [address] Performed By: #### 5 8410-2 #### [facility] CLIA [id number] [address] [place] [address] [place] Hemoglobin (Bld) [Mass/Vol] 11.5 g/dL Low 13.0-17.0 [facility] Comment on above: Order Comment: Speci men Type: BLOOD SPECIMEN Ordering Facility: [facility] Address: [address] [place], [place] [id number] Performed By: #### 5 8410-2 #### [facility] CLIA [id number] [address] [place] [address] MCH (RBC) [Entitic mass] 29.7 pg Normal 26.0-34.0 [facility] Comment on above: Order Comment: Speci men Type: BLOOD SPECIMEN Ordering Facility: [facility] Address: [address] [place] [address] Performed By: #### 5 8410-2 #### [facility] CLIA [id number] [address] [place] [address] MCHC (RBC) [Mass/Vol] 31.5 g/dL Normal 30.5-36.0 [facility] Comment on above: Order Comment: Speci men Type: BLOOD SPECIMEN Ordering Facility: [facility] Address: [address] [place] [address] Performed By: #### 5 8410-2 #### [facility] CLIA [id number] [address] [place] [address] [facility] MCV (RBC) [Entitic vol] 94.3 fL Normal 80.0-100.0 [facility] Comment on above: Order Comment: Speci men Type: BLOOD SPECIMEN Ordering Facility: [facility] Address: [address] [place] [address] Performed By: #### 5 8410-2 #### [facility] CLIA [id number] [address] [place] [address] [place] Nucleated RBC (Bld) [#/Vol] 10*3/uL Normal <0.01 [facility] Comment on above: Order Comment: Speci men Type: BLOOD SPECIMEN Ordering Facility: [facility] Address: [address] [place] [address] Performed By: #### 5 8410-2 #### [facility] CLIA [id number] [address] [place] [address] [place] Platelet mean volume (Bld) [Entitic vol] 9.3 fL Normal 9.0-12.7 [facility] Comment on above: Order Comment: Speci men Type: BLOOD SPECIMEN Ordering Facility: [facility] Address: [address] [place] [address] Performed By: #### 5 8410-2 #### [facility] CLIA [id number] [address] [place] [address] [place] Platelets (Bld) [#/Vol] 166 10*3/uL Normal 150-400 [facility] Comment on above: Order Comment: Speci men Type: BLOOD SPECIMEN Ordering [facility]: [facility] Address: [address] [place] [address] Performed By: #### 5 8410-2 #### [facility] CLIA [id number] [address] [place] [address] [place] RBC (Bld) [#/Vol] 3.87 10*6/uL Low 4.20-6.00 [facility] Comment on above: Order Comment: Speci men Type: BLOOD SPECIMEN Ordering Facility: [facility] Address: [address] [place] [address] Performed By: #### 5 8410-2 #### [facility] CLIA [id number] [address] [place] [address] [place] WBC (Bld) [#/Vol] 4.77 10*3/uL Normal 3.70-11.00 [facility] Comment on above: Order Comment: Speci men Type: BLOOD SPECIMEN Ordering Facility: [facility] Address: [address] [place], [place] [address] Performed By: #### 5 8410-2 #### [facility] CLIA [id number] [address] [place] [address] [place] Erythrocyte distribution width (RBC) [Ratio] 17.1 % High 11.5 - 15.0 % [facility] Hematocrit (Bld) [Volume fraction] 36.5 % Low 39.0 - 51.0 % [facility] Hemoglobin (Bld) [Mass/Vol] 11.5 g/dL Low 13.0 - 17.0 g/dL [facility] MCH (RBC) [Entitic mass] 29.7 pg 26.0 - 34.0 pg [facility] MCHC (RBC) [Mass/Vol] 31.5 g/dL 30.5 - 36.0 g/dL [facility] MCV (RBC) [Entitic vol] 94.3 fL 80.0 - 100.0 fL [facility] Nucleated RBC (Bld) [#/Vol] <0.01 k/uL [facility] Platelet mean volume (Bld) [Entitic vol] 9.3 fL 9.0 - 12.7 fL [facility] Platelets (Bld) [#/Vol] 166 10*3/uL 150 - 400 k/uL [facility] RBC (Bld) [#/Vol] 3.87 10*6/uL Low 4.20 - 6.0 0 m/uL [facility] WBC (Bld) [#/Vol] 4.77 10*3/uL 3.70 - 11. 00 k/uL [facility] Comprehensive metabolic 2000 panelon 12-02-2021 Albumin [Mass/Vol] 3.8 g/dL Normal 3.2-5.0 [facility] Comment on above: Order Comment: Speci men Type: BLOOD SPECIMEN Ordering Facility: [facility] Address: [address] [place] [address] Performed By: #### 2 4323-8 #### [facility] CLIA [id number] [address] [place] [address] [place] ALP [Catalytic activity/Vol] 181 U/L High 45-117 [facility] Comment on above: Order Comment: Speci men Type: BLOOD SPECIMEN Ordering Facility: [facility] Address: [address] [place] [address] Performed By: #### 2 4323-8 #### [facility] CLIA [id number] [address] [place] [address] [place] ALT [Catalytic activity/Vol] 26 U/L Normal 13-61 [facility] Comment on above: Order Comment: Speci men Type: BLOOD SPECIMEN Ordering Facility: [facility] Address: [address] [place] [address] Result Comment: Resu lts may be falsely depressed after the administration of Sulfasalazine and/or Sulfapyridine. Performed By: #### 2 4323-8 #### [facility] CLIA [id number] [address] [place] [address] [place] Anion gap [Moles/Vol] 11 mmol/L Normal 5-16 [facility] Comment on above: Order Comment: Speci men Type: BLOOD SPECIMEN Ordering Facility: [facility] Address: [address] [place] [address] Performed By: #### 2 4323-8 #### [facility] CLIA [id number] [address] [place] [address] [place] AST [Catalytic activity/Vol] 28 U/L Normal 8-34 [facility] Comment on above: Order Comment: Speci men Type: BLOOD SPECIMEN Ordering Facility: [facility] Address: [address] [place] [address] Result Comment: Resu lts may be falsely depressed after the administration of Sulfasalazine and/or Sulfapyridine. Performed By: #### 2 4323-8 #### [facility] CLIA [id number] [address] [place] [address] [place] Bilirubin [Mass/Vol] 0.9 mg/dL Normal 0.2-1.0 [facility] Comment on above: Order Comment: Speci men Type: BLOOD SPECIMEN Ordering Facility: [facility] Address: [address] [place] [address] Performed By: #### 2 4323-8 #### [facility] CLIA [id number] [address] [place] [address] [place] Calcium [Mass/Vol] 9.8 mg/dL Normal 8.5-10.5 [facility] Comment on above: Order Comment: Speci men Type: BLOOD SPECIMEN Ordering Facility: [facility] Address: [address] [place] [address] Performed By: #### 2 4323-8 #### [facility] CLIA [id number] [address] [place], [place] [id number] [place] Chloride [Moles/Vol] 101 mmol/L Normal 98-107 [facility] Comment on above: Order Comment: Speci men Type: BLOOD SPECIMEN Ordering Facility: [facility] Address: [address] [place] [address] Performed By: #### 2 4323-8 #### [facility] CLIA [id number] [address] [place], [place] [address] [place] CO2 [Moles/Vol] 29 mmol/L Normal 21-32 [facility] Comment on above: Order Comment: Speci men Type: BLOOD SPECIMEN Ordering Facility: [facility] Address: [address] [place] [address] Performed By: #### 2 4323-8 #### [facility] CLIA [id number] [address] [place] [address] [place] Creatinine [Mass/Vol] 1.64 mg/dL High 0.50-1.40 [facility] Comment on above: Order Comment: Speci men Type: BLOOD SPECIMEN Ordering Facility: [facility] Address: [address] [place] [address] Result Comment: Tatyana ents receiving either N-Acetylcysteine (NAC) or Metamizole prior to venipuncture, may have falsely depressed results. Performed By: #### 2 4323-8 #### [facility] CLIA [id number] [address] [place] [address] [place] ESTIMATED GLOMERULAR FILTRATION RATE 44 mL/min/1.73m??? Low >=60 [facility] Comment on above: Order Comment: Speci men Type: BLOOD SPECIMEN Ordering Facility: [facility] Address: [address] [place] [address] Result Comment: Roxanna mated Glomerular Filtration Rate (eGFR) is calculated using the 2020 CKD-EPI creatinine equation. This equation utilizes serum creatinine, sex, and age as parameters. The creatinine assay has traceable calibration to isotope dilution-mass spectrometry. Refer to KDIGO guidelines for clinical interpretation. In patients with unstable renal function, e.g. those with acute kidney injury, the eGFR may not accurately reflect actual GFR. Performed By: #### 2 4323-8 #### [facility] CLIA [id number] [address] [place] [address] [place] Glucose [Mass/Vol] 104 mg/dL High 70-100 [facility] Comment on above: Order Comment: Rudy valles Type: BLOOD SPECIMEN Ordering Facility: [facility] Address: [address] [place] [address] Result Comment: The [place] Diabetes Association (ADA) provides guidance for cutoff values for fasting glucose and random glucose. The ADA defines fasting as no caloric intake for at least 8 hours. Fasting plasma glucose results between 100 to 125 mg/dL indicate increased risk for diabetes (prediabetes). Fasting plasma glucose results greater than or equal to 126 mg/dL meet the criteria for diagnosis of diabetes. In the absence of unequivocal hyperglycemia, results should be confirmed by repeat testing. In a patient with classic symptoms of hyperglycemia or hyperglycemic crisis, random plasma glucose results greater than or equal to 200 mg/dL meet the criteria for diagnosis of diabetes. Reference: Standards of Medical Care in Diabetes 2016, [place] Diabetes Association. Diabetes Care. 2016.39(Suppl 1). Results may be falsely elevated after the administration of Sulfapyridine. Results may be falsely depressed after the administration of Sulfasalazine. Performed By: #### 2 4323-8 #### [facility] CLIA [id number] [address] [place] [address] [place] Potassium [Moles/Vol] 4.4 mmol/L Normal 3.5-5.1 [facility] Comment on above: Order Comment: Rudy valles Type: BLOOD SPECIMEN Ordering Facility: [facility] Address: [address] [place] [address] Performed By: #### 2 4323-8 #### [facility] CLIA [id number] [address] [place], [place] [address] [place] Protein [Mass/Vol] 7.2 g/dL Normal 6.0-8.5 [facility] Comment on above: Order Comment: Speci men Type: BLOOD SPECIMEN Ordering Facility: [facility] Address: [place] [address] Performed By: #### 2 4323-8 #### [facility] CLIA [id number] [address] [place] [address] [place] Sodium [Moles/Vol] 141 mmol/L Normal 136-145 [facility] Comment on above: Order Comment: Speci men Type: BLOOD SPECIMEN Ordering Facility: [facility] Address: [address] [place] [address] [place] [address] Performed By: #### 2 4323-8 #### [facility] CLIA [id number] [address] [place] [address] [place] Urea nitrogen [Mass/Vol] 26 mg/dL Normal 7-26 [facility] Comment on above: Order Comment: Speci men Type: BLOOD SPECIMEN Ordering Facility: [facility] Address: [place] [address] Performed By: #### 2 4323-8 #### [facility] CLIA [id number] [address] [place] [address] [place] Albumin [Mass/Vol] 3.8 g/dL 3.2 - 5.0 g/dL [facility] ALP [Catalytic activity/Vol] 181 U/L High 45 - 117 U/L [facility] ALT [Catalytic activity/Vol] 26 U/L 13 - 61 U/L [facility] Anion gap [Moles/Vol] 11 mmol/L 5 - 16 mmol/L [facility] AST [Catalytic activity/Vol] 28 U/L 8 - 34 U/L [facility] Bilirubin [Mass/Vol] 0.9 mg/dL 0.2 - 1 .0 mg/dL [facility] Calcium [Mass/Vol] 9.8 mg/dL 8.5 - 10. 5 mg/dL [facility] Chloride [Moles/Vol] 101 mmol/L 98 - 10 7 mmol/L [facility] CO2 [Moles/Vol] 29 mmol/L 21 - 32 mmol/L [facility] Creatinine [Mass/Vol] 1.64 mg/dL High 0.50 - 1.40 mg/dL [facility] Estimated Glomerular Filtration Rate 44 mL/min/1.73m Low >=60 mL/min/1.73m [facility] Glucose [Mass/Vol] 104 mg/dL High 70 - 100 mg/dL [facility] Potassium [Moles/Vol] 4.4 mmol/L 3.5 - 5.1 mmol/L [facility] Protein [Mass/Vol] 7.2 g/dL 6.0 - 8.5 g/dL [facility] Sodium [Moles/Vol] 141 mmol/L 136 - 145 mmol/L [facility] Urea nitrogen [Mass/Vol] 26 mg/dL 7 - 26 mg/dL [facility] HbA1c (Bld)on 12-02-2021 Average glucose Estimated from glycated hemoglobin (Bld) [Mass/Vol] 128 mg/dL Normal [facility] Comment on above: Order Comment: Rudy valles Type: BLOOD SPECIMEN Ordering Facility: [facility] Address: [address] [place] [address] Result Comment: eAG: (Estimated average glucose) is a calculated value from HgbA1c and is lifeline representatives of the average blood glucose level in the last 2-3 month period. Performed By: #### 5 5454-3 #### [facility] CLIA [id number] [address] [place] [address] [place] HbA1c (Bld) [Mass fraction] 6.1 % High 4.3-6.0 [facility] Comment on above: Order Comment: Rudy valles Type: BLOOD SPECIMEN Ordering Facility: [facility] Address: [address] [place] [address] Result Comment: [place] Diabetes Association guidelines indicate that patients with HgbA1c in the range 5.7-6.4% are at increased risk for development of diabetes, and intervention by lifestyle modification may be beneficial. HgbA1c greater or equal to 6.5% is considered diagnostic of diabetes. Performed By: #### 5 5454-3 #### [facility] CLIA [id number] [address] [place] [address] [place] Average glucose Estimated from glycated hemoglobin (Bld) [Mass/Vol] 128 mg/dL [facility] HbA1c (Bld) [Mass fraction] 6.1 % High 4.3 - 6.0 % [facility] PT panel Coag (PPP)on 2021 INR Coag (PPP) [Relative time] 1.2 {INR} High 0.9-1.1 [facility] Comment on above: Order Comment: Rudy valles Type: BLOOD SPECIMEN Ordering Facility: [facility] Address: [address] [place] [address] Result Comment: Viridiana min K Antagonist (VKA) Therapeutic Range: INR 2 to 3 (Target INR of 2.5) Note: For patients treated with VKA drugs, such as warfarin, the [place] [employer] 2012 Guideline recommends a therapeutic INR range of 2 to 3 (target INR of 2.5). This recommendation includes high-risk patients with antiphospholipid syndrome with previous arterial or venous thromboembolism, current-generation mechanical or bioprosthetic aortic heart valve replacement. Note: Patients with mechanical aortic valve replacement and additional risk factors for thromboembolic events (atrial fibrillation, previous thromboembolism, LV dysfunction, hypercoagulable conditions) or an older generation mechanical AVR (i.e., ball in-Cage) or any mechanical MVR should have a INR therapeutic range of 2.5 to 3.5 (target INR of 3). Nicole GH, et al. Chest 2012, 141:7S-47S Axel HERNANDEZ et al. [facility] 2017, 70: 252-289 Performed By: #### 1 4979-9, 12179-8 #### [facility] CLIA [id number] [address] [place] [address] [place] PT Coag (PPP) [Time] 13.3 s High 9.5-12.0 [facility] Comment on above: Order Comment: Rudy valles Type: BLOOD SPECIMEN Ordering Facility: [facility] Address: [address] [place] [address] Performed By: #### 1 4979-9, 25619-9 #### [facility] CLIA [id number] [address] [place] [address] [place] INR Coag (PPP) [Relative time] 1.2 {INR} High 0.9 - 1.1 [facility] PT Coag (PPP) [Time] 13.3 s High 9.5 - 1 2.0 sec [facility] STAPH AUREUS PCRon S. aureus and MRSA panel RIVKA+probe (Nose) Normal Negative [facility] Comment on above: Order Comment: Speci men Type: SWAB OF INTERNAL NOSEOrdering Facility: [facility] Address: [address] [place] [address] Result Comment: Nega tive for Staphylococcus aureus by PCR. Negative for MRSA by PCR Performed By: #### S APCR ####[facility] [id number] [address] [place] TYPE AND SCREEN,30 DAYon ABO A Normal [facility] Comment on above: Order Comment: Speci men Type: BLOOD SPECIMEN Ordering Facility: [facility] Address: [address] [place] [address] Performed By: #### T SCR30 #### [facility] CLIA [id number] [address] [place] [address] HISTORICAL AB SCR STATUS Negative [facility] Comment on above: Order Comment: Speci men Type: BLOOD SPECIMEN Ordering Facility: [facility] Address: [address] [place] [address] Performed By: #### T SCR30 #### [facility] CLIA [id number] [address] [place] [address] [place] Rh Nom (Bld) Positive [facility] Comment on above: Order Comment: Speci men Type: BLOOD SPECIMEN Ordering Facility: [facility] Address: [address] [place] [address] Performed By: #### T SCR30 #### [facility] CLIA [id number] [address] [place] [address] [place] ABO A [facility] HIstorical Ab Scr Status Negative [facility] Rh Nom (Bld) Positive [facility] aPTT PPPon 12-02-2021 aPTT Coag (PPP) [Time] 36.0 s High 22.0-31.5 [facility] Comment on above: Order Comment: Speci men Type: BLOOD SPECIMEN Ordering Facility: [facility] Address: [address], [place] [address] Result Comment: Ther apeutic Heparin Reference Range: High Dose: 46-75 seconds (DVT/PE) Low Dose: 39-60 seconds (Acute Coronary Syndrome) For low molecular weight heparin or danaparoid, monitoring is often NOT necessary, but the heparin assay, Xa inhibition assay (send out) may be used in certain circumstances, as the PTT is generally insensitive to the effect of these agents. Direct thrombin inhibitors are becoming more widely utilized and these drugs are often monitored using the PTT. Performed By: #### 1 4979-9, 44031-7 #### [facility] CLIA [id number] [address] [place] [address] [place] CNCOon 11-28-2021 CNCO Letter Text Normal [facility] LABORATORYOrdered By: Chris Castellon on 07-01-2021 ABO/Rh Interp Positive Invalid Interpretation Code AO BB SS Antibody Screen Gel Negative ABSC (07/01/21 3:40 PM) Invalid Interpretation Code AO BB SS LABORATORYOrdered By: Chris Bentley on 07-01-2021 Albumin BCP dye [Mass/Vol] 3.7 G/dL Invalid Interpretation Code 3.4 - 4.8 G/dL AO ADM SS Calcium [Mass/Vol] 9.2 mg/dL Invalid Interpretation Code 8.4 - 10.2 mg/dL AO ADM SS Chloride [Moles/Vol] 104 mmol/L Invalid Interpretation Code 98 - 107 mmol/L AO ADM SS CO2 [Moles/Vol] 27 mmol/L Invalid Interpretation Code 23 - 31 mmol/L AO ADM SS Creatinine [Mass/Vol] 1.44 mg/dL Invalid Interpretation Code 0.70 - 1.30 mg/dL AO ADM SS Electrolyte Balance 10.0 mEq/L Invalid Interpretation Code 4.0 - 15.0 mEq/L AO ADM SS Glucose [Mass/Vol] 114 mg/dL Invalid Interpretation Code 83 - 110 mg/dL AO ADM SS Natriuretic peptide.B prohormone N-Terminal [Mass/Vol] 75113 pg/mL Invalid Interpretation Code 0 - 125 pg/mL AO ADM SS Potassium [Moles/Vol] 4.2 mmol/L Invalid Interpretation Code 3.5 - 5.1 mmol/L AO ADM SS Sodium [Moles/Vol] 141 mmol/L Invalid Interpretation Code 136 - 145 mmol/L AO ADM SS Urea nitrogen [Mass/Vol] 24 mg/dL Invalid Interpretation Code 7 - 18 mg/dL AO ADM SS Urea nitrogen/Creatinine [Mass ratio] 17 ratio Invalid Interpretation Code 7 - 27 ratio AO ADM SS LABORATORYOrdered By: Zenobia Geiger on 07-01-2021 Basophil, Absolute 0.00 103/mcL Invalid Interpretation Code 0.00 - 0.19 10^3/mcL AO Auto Heme SS Basophils/100 WBC (Bld) 0.3 % Invalid Interpretation Code 0.0 - 2.5 % AO Auto Heme SS Eosinophil, Absolute 0.20 103/mcL Invalid Interpretation Code 0.00 - 0.40 10^3/mcL AO Auto Heme SS Eosinophils/100 WBC (Bld) 4.7 % Invalid Interpretation Code 0.0 - 7.0 % AO Auto Heme SS Erythrocyte distribution width (RBC) [Ratio] 18.9 % Invalid Interpretation Code 11.5 - 14.5 % AO Auto Heme SS Hematocrit (Bld) [Volume fraction] 36.2 % Invalid Interpretation Code 42.0 - 52.0 % AO Auto Heme SS Hemoglobin (Bld) [Mass/Vol] 11.6 G/dL Invalid Interpretation Code 14.0 - 18.0 G/dL AO Auto Heme SS Lymphocyte, Absolute 0.80 103/mcL Invalid Interpretation Code 0.77 - 3.85 10^3/mcL AO Auto Heme SS Lymphocytes/100 WBC (Bld) 17.6 % Invalid Interpretation Code 10.0 - 50.0 % AO Auto Heme SS MCH (RBC) [Entitic mass] 28.4 pg Invalid Interpretation Code 27.0 - 31.2 pg AO Auto Heme SS MCHC (RBC) [Mass/Vol] 32.1 G/dL Invalid Interpretation Code 31.8 - 35.4 G/dL AO Auto Heme SS MCV (RBC) [Entitic vol] 88.5 fL Invalid Interpretation Code 80.0 - 94.0 fL AO Auto Heme SS Monocyte, Absolute 0.50 103/mcL Invalid Interpretation Code 0.15 - 1.00 10^3/mcL AO Auto Heme SS Monocytes/100 WBC (Bld) 9.9 % Invalid Interpretation Code 1.7 - 13.0 % AO Auto Heme SS Neutrophil, Absolute 3.20 103/mcL Invalid Interpretation Code 2.85 - 6.16 10^3/mcL AO Auto Heme SS Neutrophils/100 WBC (Bld) 67.5 % Invalid Interpretation Code 37.0 - 80.0 % AO Auto Heme SS Platelet mean volume (Bld) [Entitic vol] 7.8 fL Invalid Interpretation Code 7.4 - 10.4 fL AO Auto Heme SS Platelets (Bld) [#/Vol] 219 103/mcL Invalid Interpretation Code 130 - 400 10^3/mcL AO Auto Heme SS RBC (Bld) [#/Vol] 4.09 106/mcL Invalid Interpretation Code 4.04 - 6.13 10^6/mcL AO Auto Heme SS WBC (Bld) [#/Vol] 4.80 103/mcL Invalid Interpretation Code 4.60 - 10.80 10^3/mcL AO Auto Heme SS LABORATORYOrdered By: SYSTEM SYSTEM on 07-01-2021 GFR 59 ml/min/1.73sqm Invalid Interpretation Code AO Chemistry S GFR Non- 48 ml/min/1.73sqm Invalid Interpretation Code AO Chemistry S LABORATORYOrdered By: SYSTEM SYSTEM on 06-16-2021 Basophils (Bld) [#/Vol] 0.00 103/mcL Invalid Interpretation Code 0.00 - 0.27 10^3/mcL AH Remisol SS Basophils/100 WBC (Bld) 0.7 % Invalid Interpretation Code 0.0 - 2.5 % AH Remisol SS Calcium [Mass/Vol] 9.3 mg/dL Invalid Interpretation Code 8.7 - 10.4 mg/dL AH ADM SS Chloride [Moles/Vol] 107 mmol/L Invalid Interpretation Code 98 - 110 mEq/L AH ADM SS CO2 [Moles/Vol] 27 mmol/L Invalid Interpretation Code 22 - 32 mEq/L AH ADM SS Creatinine [Mass/Vol] 1.30 mg/dL Invalid Interpretation Code 0.60 - 1.40 mg/dL AH ADM SS Electrolyte Balance 7.0 mEq/L Invalid Interpretation Code 4.0 - 15.0 mEq/L AH ADM SS Eosinophils (Bld) [#/Vol] 0.20 103/mcL Invalid Interpretation Code 0.00 - 0.65 10^3/mcL AH Remisol SS Eosinophils/100 WBC (Bld) 3.2 % Invalid Interpretation Code 0.0 - 6.0 % AH Remisol SS Erythrocyte distribution width (RBC) [Ratio] 20.6 % Invalid Interpretation Code 11.5 - 15.5 % AH Remisol SS GFR/1.73 sq M.predicted among blacks MDRD (S/P/Bld) [Vol rate/Area] ml/min/1.73sqm Invalid Interpretation Code AH Chemistry S GFR/1.73 sq M.predicted among non-blacks MDRD (S/P/Bld) [Vol rate/Area] 54 ml/min/1.73sqm Invalid Interpretation Code Chemistry S Glucose [Mass/Vol] 121 mg/dL Invalid Interpretation Code 82 - 115 mg/dL AH ADM SS Hematocrit (Bld) [Volume fraction] 34.2 % Invalid Interpretation Code 40.0 - 52.0 % AH Remisol SS Hemoglobin (Bld) [Mass/Vol] 11.2 G/dL Invalid Interpretation Code 13.0 - 17.5 G/dL AH Remisol SS Lymphocytes (Bld) [#/Vol] 0.80 103/mcL Invalid Interpretation Code 0.90 - 4.32 10^3/mcL AH Remisol SS Lymphocytes/100 WBC (Bld) 14.6 % Invalid Interpretation Code 20.0 - 40.0 % AH Remisol SS MCH (RBC) [Entitic mass] 29.0 pg Invalid Interpretation Code 27.0 - 33.0 pg AH Remisol SS MCHC (RBC) [Mass/Vol] 32.7 G/dL Invalid Interpretation Code 32.0 - 36.0 G/dL AH Remisol SS MCV (RBC) [Entitic vol] 88.7 fL Invalid Interpretation Code 81.0 - 100.0 fL AH Remisol SS Monocytes (Bld) [#/Vol] 0.60 103/mcL Invalid Interpretation Code 0.09 - 1.40 10^3/mcL AH Remisol SS Monocytes/100 WBC (Bld) 10.7 % Invalid Interpretation Code 2.0 - 13.0 % AH Remisol SS Neutrophils (Bld) [#/Vol] 3.90 103/mcL Invalid Interpretation Code 2.25 - 8.10 10^3/mcL AH Remisol SS Neutrophils/100 WBC (Bld) 70.8 % Invalid Interpretation Code 50.0 - 75.0 % AH Remisol SS Platelet mean volume (Bld) [Entitic vol] 7.8 fL Invalid Interpretation Code 6.4 - 10.5 fL AH Remisol SS Platelets (Bld) [#/Vol] 142 103/mcL Invalid Interpretation Code 150 - 450 10^3/mcL AH Remisol SS Potassium [Moles/Vol] 4.3 mmol/L Invalid Interpretation Code 3.5 - 5.0 mEq/L AH ADM SS RBC (Bld) [#/Vol] 3.85 106/mcL Invalid Interpretation Code 4.50 - 6.00 10^6/mcL AH Remisol SS Sodium [Moles/Vol] 141 mmol/L Invalid Interpretation Code 136 - 145 mEq/L AH ADM SS Urea nitrogen [Mass/Vol] 23.0 mg/dL Invalid Interpretation Code 8.0 - 22.0 mg/dL AH ADM SS Urea nitrogen/Creatinine [Mass ratio] 17.7 ratio Invalid Interpretation Code 10.0 - 22.0 ratio AH ADM SS WBC (Bld) [#/Vol] 5.50 103/mcL Invalid Interpretation Code 4.50 - 10.80 10^3/mcL AH Remisol SS LABORATORYOrdered By: Mikey Qureshi on 06-16-2021 INR Coag (PPP) [Relative time] 2.8 {INR} Invalid Interpretation Code AH Auto Coag SS PT Coag (PPP) [Time] 33.8 s Invalid Interpretation Code 9.0 - 14.9 seconds AH Auto Coag SS LABORATORYOrdered By: Rosana Teague on 05-23-2021 Calcium [Mass/Vol] 9.0 mg/dL Invalid Interpretation Code 8.4 - 10.2 mg/dL AO ADM SS Chloride [Moles/Vol] 108 mmol/L Invalid Interpretation Code 98 - 107 mmol/L AO ADM SS CO2 [Moles/Vol] 30 mmol/L Invalid Interpretation Code 23 - 31 mmol/L AO ADM SS Creatinine [Mass/Vol] 1.54 mg/dL Invalid Interpretation Code 0.70 - 1.30 mg/dL AO ADM SS Electrolyte Balance 10.0 mEq/L Invalid Interpretation Code 4.0 - 15.0 mEq/L AO ADM SS Glucose [Mass/Vol] 130 mg/dL Invalid Interpretation Code 83 - 110 mg/dL AO ADM SS Natriuretic peptide.B prohormone N-Terminal [Mass/Vol] 54781 pg/mL Invalid Interpretation Code 0 - 125 pg/mL AO ADM SS Potassium [Moles/Vol] 4.7 mmol/L Invalid Interpretation Code 3.5 - 5.1 mmol/L AO ADM SS Sodium [Moles/Vol] 148 mmol/L Invalid Interpretation Code 136 - 145 mmol/L AO ADM SS Urea nitrogen [Mass/Vol] 25 mg/dL Invalid Interpretation Code 7 - 18 mg/dL AO ADM SS Urea nitrogen/Creatinine [Mass ratio] 16 ratio Invalid Interpretation Code 7 - 27 ratio AO ADM SS LABORATORYOrdered By: SYSTEM SYSTEM on 05-23-2021 GFR 54 ml/min/1.73sqm Invalid Interpretation Code AO Chemistry S GFR Non- 45 ml/min/1.73sqm Invalid Interpretation Code AO Chemistry S LABORATORYOrdered By: Damon Arredondo on 03-28-2021 Basophil, Absolute 0.00 103/mcL Invalid Interpretation Code 0.00 - 0.19 10^3/mcL AO Auto Heme SS Basophils/100 WBC (Bld) 0.5 % Invalid Interpretation Code 0.0 - 2.5 % AO Auto Heme SS Eosinophil, Absolute 0.40 103/mcL Invalid Interpretation Code 0.00 - 0.40 10^3/mcL AO Auto Heme SS Eosinophils/100 WBC (Bld) 5.5 % Invalid Interpretation Code 0.0 - 7.0 % AO Auto Heme SS Erythrocyte distribution width (RBC) [Ratio] 17.6 % Invalid Interpretation Code 11.5 - 14.5 % AO Auto Heme SS Hematocrit (Bld) [Volume fraction] 36.0 % Invalid Interpretation Code 42.0 - 52.0 % AO Auto Heme SS Hemoglobin (Bld) [Mass/Vol] 11.3 G/dL Invalid Interpretation Code 14.0 - 18.0 G/dL AO Auto Heme SS Lymphocyte, Absolute 1.20 103/mcL Invalid Interpretation Code 0.77 - 3.85 10^3/mcL AO Auto Heme SS Lymphocytes/100 WBC (Bld) 18.7 % Invalid Interpretation Code 10.0 - 50.0 % AO Auto Heme SS MCH (RBC) [Entitic mass] 26.5 pg Invalid Interpretation Code 27.0 - 31.2 pg AO Auto Heme SS MCHC (RBC) [Mass/Vol] 31.3 G/dL Invalid Interpretation Code 31.8 - 35.4 G/dL AO Auto Heme SS MCV (RBC) [Entitic vol] 84.6 fL Invalid Interpretation Code 80.0 - 94.0 fL AO Auto Heme SS Monocyte, Absolute 0.80 103/mcL Invalid Interpretation Code 0.15 - 1.00 10^3/mcL AO Auto Heme SS Monocytes/100 WBC (Bld) 12.1 % Invalid Interpretation Code 1.7 - 13.0 % AO Auto Heme SS Neutrophil, Absolute 4.20 103/mcL Invalid Interpretation Code 2.85 - 6.16 10^3/mcL AO Auto Heme SS Neutrophils/100 WBC (Bld) 63.2 % Invalid Interpretation Code 37.0 - 80.0 % AO Auto Heme SS Platelet mean volume (Bld) [Entitic vol] 8.1 fL Invalid Interpretation Code 7.4 - 10.4 fL AO Auto Heme SS Platelets (Bld) [#/Vol] 248 103/mcL Invalid Interpretation Code 130 - 400 10^3/mcL AO Auto Heme SS RBC (Bld) [#/Vol] 4.26 106/mcL Invalid Interpretation Code 4.04 - 6.13 10^6/mcL AO Auto Heme SS WBC (Bld) [#/Vol] 6.60 103/mcL Invalid Interpretation Code 4.60 - 10.80 10^3/mcL AO Auto Heme SS LABORATORYOrdered By: Chris Castellon on 03-28-2021 Calcium [Mass/Vol] 9.3 mg/dL Invalid Interpretation Code 8.4 - 10.2 mg/dL AO ADM SS Chloride [Moles/Vol] 102 mmol/L Invalid Interpretation Code 98 - 107 mmol/L AO ADM SS CO2 [Moles/Vol] 32 mmol/L Invalid Interpretation Code 23 - 31 mmol/L AO ADM SS Creatinine [Mass/Vol] 1.35 mg/dL Invalid Interpretation Code 0.70 - 1.30 mg/dL AO ADM SS Glucose [Mass/Vol] 104 mg/dL Invalid Interpretation Code 83 - 110 mg/dL AO ADM SS Potassium [Moles/Vol] 4.7 mmol/L Invalid Interpretation Code 3.5 - 5.1 mmol/L AO ADM SS Sodium [Moles/Vol] 139 mmol/L Invalid Interpretation Code 136 - 145 mmol/L AO ADM SS Sodium [Moles/Vol] 5.0 mmol/L Invalid Interpretation Code AO ADM SS Urea nitrogen [Mass/Vol] 17 mg/dL Invalid Interpretation Code 7 - 18 mg/dL AO ADM SS Urea nitrogen/Creatinine [Mass ratio] 13 ratio Invalid Interpretation Code 7 - 27 ratio AO ADM SS LABORATORYOrdered By: SYSTEM SYSTEM on 03-28-2021 GFR 63 ml/min/1.73sqm Invalid Interpretation Code AO Chemistry S GFR Non- 52 ml/min/1.73sqm Invalid Interpretation Code AO Chemistry S LABORATORYOrdered By: Rosana Teague on 03-28-2021 Natriuretic peptide.B prohormone N-Terminal [Mass/Vol] 83897 pg/mL Invalid Interpretation Code 0 - 125 pg/mL AO ADM SS CNPNon 07-25-2020 CNPN Telephone ([facility]) JACKY ELLIS ([id number]) 1950 M Date Time Provider Department 07/25/20 CHARBEL MEZA) [facility] During your visit today, we recorded the following information about you: Charbel Meza PA-C 07/25/2020 9:58 AM Signed Called patient to inform them that they are overdue for a colonoscopy based on our records at [facility]. Patient's listed numbers are disconnected and he does not have mychart. Charbel Meza PA-C Allergies As of Date: 07/25/2020 Noted Allergy Reaction PENICILLINS 07/05/2008 Date Reviewed: 06/15/2014 Reviewed by: Janeen Cleveland Rn - Fully Assessed Reason for Visit: recall colonoscopy [Other] Primary Visit Diagnosis:Colonoscopy causing post-procedural bleeding [K91.840] Other Visit Diagnosis:Encounter for screening for malignant neoplasm of colon [Z12.11] Prescriptions as of 07/25/2020 Sig: AMLODIPINE 5 MG TABLET Take 5 mg by mouth once daily. Problem List As Of Date 07/25/2020 Noted Resolved SCREEN (SEE ALSO ADMISSION) CANCER - COLON [Z*07/05/2008 INGUINAL HERNIA, UNILATERAL W/O GANGRENE/OBSTRU* 009 Personal history of colonic polyps [Z86.010] 05/29/2014 Encounter Status:Closed by CHARBEL MEZA PA-C on 07/25/20 Normal [facility] Initial Visit (Neurosurgery) on 10-05-2017 Initial Visit (Neurosurgery) Chief ComplaintPatient is being seen for an initial Neurosurgical evaluation and Low back pain. History of Present IllnessIt was a pleasure to see Mr. Angulo at the Neurosurgery Spine Clinic at [facility]. Mr. Angulo is a really nice 67 year old male who presents to us with complaints of LOW BACK PAIN that started about 7 years back. The pain is located in the LOWER BACK WITHOUT radiation to the legs It is DULL ACHING in nature and is 5/10 in severity on a scale of 1 to 10.Aggravated factors: bending, or walking long distances Relieving factors: exercise AND pain medications. Associated symptoms: numbness in right kneeHe has tried medications (NSAIDS and narcotics), PT and ESIs/selective nerve blocks with only temporary. He is a NON-SMOKER History of Depression: NO. History of DVT/blood clots: NOThe patient is NOT on any STEROID or ASA, Plavix or anticoagulants (COUMADIN) NARCOTICS for pain: YES PRIOR SPINE SURGERY: NO The patient denies any history of trauma, fever, neck pain, headache, vomiting, excessive sleepiness, diplopia, photophobia, visual or hearing deterioration.FAMILY HISTORY was discussed and is not pertinent to the presenting problem. Review of SystemsConstitutional: No fever or chillsEyes: Denies vision changesEars/Nose/Throat : Denies sore throat or hearing lossRespiratory: No shortness of breath or wheezingCardiac/Vascula r: No chest pain, or palpitationsGI: No abdominal pain, vomiting or diarrhea : No painful urination or incontinenceMusculoskel etal: See hpi Skin: No rashes or skin lesionsNeurologic: See hpi Hematology: Does not bleed easily and no excessive bruising Past Medical History History of hypertension (V12.59) (Z86.79) Surgical History History of Inguinal Hernia Repair History of Tonsillectomy With Adenoidectomy Family History Family history of malignant neoplasm of colon (V16.0) (Z80.0) Family history of malignant neoplasm of stomach (V16.0) (Z80.0) Family history of malignant neoplasm of colon (V16.0) (Z80.0) Social History Non-smoker (V49.89) (Z78.9) Occasional alcohol use Allergies Penicillins Recorded By: Nithya Collins; 10/05/2017 8:32:41 AM Current Meds Hydrocodone-Acetaminoph en 7.5-325 MG Oral Tablet; ONE EVERY 8 HOURS;Therapy: 05Oct2017 to Recorded Dispense: 0 Days ; #: Sufficient Tablet; Refill: 0; KP = N; Record; Last Updated By: Nithya Collins; 10/05/2017 8:36:10 AM Meloxicam 7.5 MG Oral Tablet; TAKE 1 TABLET DAILY NEEDED;Therapy: 05Oct2017 to Recorded Dispense: 0 Days ; #: Sufficient Tablet; Refill: 0; KP = N; Record; Last Updated By: Nithya Collins; 10/05/2017 8:36:10 AM Vitals Vital Signs Recorded: 05Oct2017 08:32AMHeart [id number] [id number] ht6 ft 3 rnWowuwk160 lb BMI Hjxdvrujro63LVW Calculated2.53 Physical ExamGENERAL: no apparent distressEYES: No icterus; extraocular movements intact ENT: moist mucous membranes ; normal hard and soft palate NECK: trachea midline; no thyromegaly RESPIRATORY: normal respiratory effort; no audible wheezes/rhonchiEXTREMIT IES: normal pulses, no edemaSKIN: Normal temperature,no rash or ulcers MUSCULOSKELETAL: No obvious malalignment in sagittal and coronal plane on inspection. Gait: Normalrange of motion in the lower back is within normal limits.NEUROLOGIC: Patient is awake, alert and oriented to name, place and time.Cranial nerves II-XII are intact.Moving all extremities with 5/5 ( MRC ) strength.No pronator driftReflexes are symmetric throughout. Sensory exam shows no gross dermatomal sensory deficits to light touch and pain Results/DataAP and lateral x-rays of the lumbar spine that were done on 09/17/2016 with personally reviewed and shows evidence of a mild lumbar scoliosis with right sided, which are along with presence of bilateral pars defect and L5-S1 spondylolisthesis with multilevel degenerative changes in the form of disc collapse and osteophytes.MRI of the lumbar spine that was done on 10/23/2016 was personally reviewed and shows evidence of multilevel degenerative changes involving the lumbosacral spine resulting in neural foraminal stenosis along with the presence of lumbar spondylolisthesis at L5-S1 level with bilateral pars defect Diagnoses/Problems Backache (724.5) (M54.9) Spondylolisthesis at L5-S1 level (756.12) (M43.17) Pars defect with spondylolisthesis (756.11,756.12) (M43.00,M43.10) Scoliosis of thoracolumbar spine (737.30) (M41.9) Patient Discussion/SummaryMr. ELLIS is a really nice 67-year-old gentleman who has been having the low back pain for few years but the his symptoms are worse over the past 3 months or so with the discomfort and pain in the lower back and numbness in the right knee only. She denies any signs or symptoms of for obvious radiculopathy and does not have any radiating pain from the back into the lower extremities whatsoever. He has been trying conservative treatment with his pain management physician and is overall satisfied with improvement he has obtained from epidural injections and exercises. He is also working on losing some weight which I believe is appropriate. He has no focal neurological deficit on clinical examination. 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 However his symptoms are mild in intensity especially with conservative treatment and he does not have any obvious signs of radiculopathy.He has seen others spine surgeon who has send him for another opinion to see me.While I do agree that Mr. ELLIS has evidence of lumbar degenerative changes with evidence of mild scoliosis overall his symptoms remains mainly axial in nature and he does not have any signs of impingement day and needs overall very functional.He would want to avoid surgery at this point of time and I absolutely agree with that as I do not believe he need any formal surgical intervention at this point of time considering his well preserved neurological exam and the symptoms of back pain which at the most are mild to moderate in intensity and he is benefiting from conservative treatment.I recommended activity modification, regular aerobic exercise, and core and back muscle strengthening. If he develops any neurological symptoms in the future, I would be more than happy to reassess him and re-evaluate to discuss any surgical options. In the meantime, I would recommend continued non-operative care with PCP and/or pain management.It was a pleasure to participate in Mr. HERNANDEZ donnelly. All questions were answered to the patients satisfaction and he explained understanding of the further treatment plan. End of Encounter MedsHydrocodone-Acetami nophen 7.5-325 MG Oral Tablet; ONE EVERY 8 HOURS;Therapy: 05Oct2017 to RecordedMeloxicam 7.5 MG Oral Tablet; TAKE 1 TABLET DAILY NEEDED;Therapy: 05Oct2017 to Recorded Signatures Electronically signed by : Dominick Saenz MD; Oct 05 2017 9:21AM EST (Author) Normal [facility] Vital Signs Date Time Vital Sign Value Performing Clinician Facility 07-14-2024 12:01-0400 Diastolic blood pressure 91 mm[Hg] Earline Juvencio PA-C Work Phone: [email or web address] 07-14-2024 12:01-0400 Systolic blood pressure 136 mm[Hg] Earline Juvencio PA-C Work Phone: [facility] [email or web address] 07-14-2024 11:37-0400 Body height 188 cm Earline Juvencio PA-C Work Phone: [email or web address] 07-14-2024 11:37-0400 Body mass index (BMI) [Ratio] 32.03 kg/m2 Earline Juvencio PA-C Work Phone: [email or web address] 07-14-2024 11:37-0400 Body temperature 98.2 [degF] Earline Juvencio PA-C Work Phone: [email or web address] 07-14-2024 11:37-0400 Body weight 113.17 kg Earline Juvencio PA-C Work Phone: [email or web address] 07-14-2024 11:37-0400 Heart rate 93 /min Finderlyson PA-C Work Phone: [email or web address] 07-14-2024 11:37-0400 SaO2% (BldA) [Mass fraction] 93 % Earline Juvencio JUSTIN-C Work Phone: [email or web address] 07-07-2024 13:27-0400 Body height 188 cm Antione Mellert DO Work Phone: [email or web address] 07-07-2024 13:27-0400 Body mass index (BMI) [Ratio] 32.34 kg/m2 Antione Mellert DO Work Phone: [email or web address] 07-07-2024 13:27-0400 Body temperature 97.11 [degF] Antione Mellert DO Work Phone: [email or web address] 07-07-2024 13:27-0400 Body weight 114.26 kg Antione Mellert DO Work Phone: [email or web address] 07-07-2024 13:27-0400 Diastolic blood pressure 79 mm[Hg] Antione Mellert DO Work Phone: [email or web address] 07-07-2024 13:27-0400 Heart rate 73 /min Antione Mellert DO Work Phone: [email or web address] 07-07-2024 13:27-0400 Systolic blood pressure 123 mm[Hg] Antione Mellert DO Work Phone: [email or web address] 06-26-2024 08:02-0400 Body temperature 97.2 [degF] Antione Mellert DO Work Phone: [email or web address] 06-26-2024 08:02-0400 Diastolic blood pressure 87 mm[Hg] Antione Mellert DO Work Phone: [email or web address] 06-26-2024 08:02-0400 Heart rate 62 /min Antione Mellert DO Work Phone: [email or web address] 06-26-2024 08:02-0400 Respiratory rate 16 /min Antione Mellert DO Work Phone: [email or web address] 06-26-2024 08:02-0400 SaO2% (BldA) [Mass fraction] 97 % Antione Planet Sushiert DO Work Phone: [email or web address] 06-26-2024 08:02-0400 Systolic blood pressure 147 mm[Hg] Antione Mellert DO Work Phone: [email or web address] 06-25-2024 14:11-0400 Body height 188 cm Antione Planet Sushiert DO Work Phone: [email or web address] 02-04-2024 11:37-0400 Diastolic blood pressure 84 mm[Hg] Antione Planet Sushiert DO Work Phone: [email or web address] 02-04-2024 11:37-0400 Systolic blood pressure 133 mm[Hg] Antione Planet Sushiert DO Work Phone: [email or web address] 02-04-2024 11:21-0400 Body height 188 cm Antione Planet Sushiert DO Work Phone: [email or web address] 02-04-2024 11:21-0400 Body mass index (BMI) [Ratio] 32.1 kg/m2 Antione Planet Sushiert DO Work Phone: [email or web address] 02-04-2024 11:21-0400 Body temperature 97 [degF] Antione Planet Sushiert DO Work Phone: [email or web address] 02-04-2024 11:21-0400 Body weight 113.4 kg Antione Planet Sushiert DO Work Phone: [email or web address] 02-04-2024 11:21-0400 Heart rate 73 /min Antione Planet Sushiert [employer] Work Phone: [facility] [email or web address] 12-21-2023 17:03-0400 Blood Pressure Location AVI SAUL MD [facility] 12-21-2023 17:03-0400 Blood Pressure Method AVI SAUL MD [facility] 12-21-2023 17:03-0400 Diastolic Blood Pressure Non-Invasive 80 mm[Hg] AVI SAUL MD [facility] 12-21-2023 17:03-0400 Heart rate 66 /min AVI SAUL MD [facility] 12-21-2023 17:03-0400 Respiratory rate 18 /min AVI SAUL MD [facility] 12-21-2023 17:03-0400 Systolic Blood Pressure Non-Invasive 119 mm[Hg] AVI SAUL MD [facility] 12-21-2023 15:09-0400 Blood Pressure Location AVI SAUL MD [facility] 12-21-2023 15:09-0400 Blood Pressure Method AVI SAUL MD [facility] 12-21-2023 15:09-0400 Body temperature 97.88 [degF] AVI SAUL MD [facility] 12-21-2023 15:09-0400 Diastolic Blood Pressure Non-Invasive 76 mm[Hg] AVI SAUL MD [facility] 12-21-2023 15:09-0400 Heart rate 60 /min AVI SAUL MD [facility] 12-21-2023 15:09-0400 Respiratory rate 18 /min AVI SAUL MD [facility] 12-21-2023 15:09-0400 Systolic Blood Pressure Non-Invasive 127 mm[Hg] AVI SAUL MD [facility] 10-05-2023 08:50-0400 Body temperature 98.24 [degF] SAM MODI MD [address] [place] [id number] 10-05-2023 08:50-0400 Diastolic Blood Pressure Non-Invasive 74 mm[Hg] SAM MODI MD [address] [place] [id number] 10-05-2023 08:50-0400 Heart rate 80 /min SAM MODI MD [address] [place] [id number] 10-05-2023 08:50-0400 Respiratory rate 16 /min SAM MODI MD [address] [place] [id number] 10-05-2023 08:50-0400 Systolic Blood Pressure Non-Invasive 110 mm[Hg] SAM MODI MD [address] [place] [id number] 10-05-2023 08:04-0400 Heart rate 86 /min SAM MODI MD [address] [place] [id number] 10-05-2023 03:30-0400 Body temperature 97.7 [degF] SAM MODI MD [address] [place] [address] 10-05-2023 03:30-0400 Diastolic Blood Pressure Non-Invasive 71 mm[Hg] SAM MODI MD [address] [place] [address] 10-05-2023 03:30-0400 Heart rate 65 /min SAM MODI MD [address] [place] [id number] 10-05-2023 03:30-0400 Reason For Taking VItal Signs SAM MODI MD [address] [place] [id number] 10-05-2023 03:30-0400 Respiratory rate 18 /min SAM MODI MD [address] [place] [id number] 10-05-2023 03:30-0400 Systolic Blood Pressure Non-Invasive 109 mm[Hg] SAM MODI MD [address] [place] [id number] 10-05-2023 02:49-0400 Heart rate 80 /min SAM MODI MD [address] [place] [id number] 10-04-2023 22:20-0400 Heart rate 87 /min SAM MODI MD [address] [place] [id number] 10-04-2023 22:20-0400 Respiratory rate 16 /min SAM MODI MD [address] [place] [id number] 10-04-2023 19:42-0400 Body temperature 97.88 [degF] SAM MODI MD [address] [place] [id number] 10-04-2023 19:42-0400 Diastolic Blood Pressure Non-Invasive 75 mm[Hg] SAM MODI MD [address] [place] [id number] 10-04-2023 19:42-0400 Heart rate 83 /min SAM MODI MD [address] [place] [address] 10-04-2023 19:42-0400 Reason For Taking VItal Signs SAM MODI MD [address] [place] [address] 10-04-2023 19:42-0400 Systolic Blood Pressure Non-Invasive 118 mm[Hg] SAM MODI MD [address] [place] [id number] 10-04-2023 18:20-0400 Heart rate 88 /min SAM MODI MD [address] [place] [id number] 10-04-2023 14:23-0400 Heart rate 79 /min SAM MODI MD [address] [place] [address] 10-04-2023 09:55-0400 Body temperature 97.34 [degF] SAM MODI MD [address] [place] [address] 10-04-2023 09:45-0400 Respiratory Rate - Anes 0 br/min SAM MODI MD [address] [place] [id number] 10-04-2023 09:40-0400 Respiratory Rate - Anes 0 br/min SAM MODI MD [address] [place] [id number] 10-04-2023 09:35-0400 Respiratory Rate - Anes 0 br/min SAM MODI MD [address] [place] [id number] 10-04-2023 09:25-0400 Body temperature 97.93 [degF] SAM MODI MD [address] [place] [id number] 10-04-2023 09:20-0400 Body temperature 97.9 [degF] SAM MODI MD [facility] 10-04-2023 09:15-0400 Body temperature 97.84 [degF] SAM MODI MD [facility] 10-04-2023 06:42-0400 Body height 188 cm SAM MODI MD [facility] 10-04-2023 06:42-0400 Body temperature 98.42 [degF] SAM MODI MD [facility] 10-04-2023 06:42-0400 Body weight 108.1 kg SAM MODI MD [facility] 09-17-2023 15:45-0400 Body temperature 97.88 [degF] FRANKLYN RESTREPO IMPLEMENTATION MANAGER-[employer] MIXER MACHINE [facility] 09-17-2023 15:45-0400 Diastolic Blood Pressure Non-Invasive 73 mm[Hg] FRANKLYN RESTREPO IMPLEMENTATION MANAGER-PA[employer] MIXER MACHINE [facility] 09-17-2023 15:45-0400 Heart rate 70 /min FRANKLYN RESTREPO IMPLEMENTATION MANAGER-PA[employer] MIXER MACHINE [facility] 09-17-2023 15:45-0400 Reason For Taking VItal Signs FRANKLYN RESTREPO IMPLEMENTATION MANAGER-PAINT MIXER MACHINE [facility] 09-17-2023 15:45-0400 Respiratory rate 16 /min FRANKLYN RESTREPO IMPLEMENTATION MANAGER-PAINT MIXER MACHINE [facility] 09-17-2023 15:45-0400 Systolic Blood Pressure Non-Invasive 120 mm[Hg] FRANKLYN RESTREPO IMPLEMENTATION MANAGER-PAINT MIXER MACHINE [facility] 09-17-2023 11:23-0400 Blood Pressure Location FRANKLYN RESTREPO IMPLEMENTATION MANAGER-PAINT MIXER MACHINE [facility] 09-17-2023 11:23-0400 Blood Pressure Method FRANKLYN RESTREPO IMPLEMENTATION MANAGER-PA[employer] MIXER MACHINE [facility] 09-17-2023 11:23-0400 Body temperature 97.52 [degF] FRANKLYN RESTREPO IMPLEMENTATION MANAGER-PA[employer] MIXER MACHINE [facility] 09-17-2023 11:23-0400 Diastolic Blood Pressure Non-Invasive 73 mm[Hg] FRANKLYN RESTREPO IMPLEMENTATION MANAGER-PA[employer] MIXER MACHINE [facility] 09-17-2023 11:23-0400 Heart rate 74 /min FRANKLYN VERGARAAbhishek IMPLEMENTATION MANAGER-PAINT MIXER MACHINE [facility] 09-17-2023 11:23-0400 Heart rate 76 /min FRANKLYN VERGARAAbhishek IMPLEMENTATION MANAGER-PAINT MIXER MACHINE [facility] 09-17-2023 11:23-0400 Reason For Taking VItal Signs FRANKLYN VERGARAAbhishek IMPLEMENTATION MANAGER-PAINT MIXER MACHINE [facility] 09-17-2023 11:23-0400 Respiratory rate 18 /min FRANKLYN RESTREPO IMPLEMENTATION MANAGER-PAINT MIXER MACHINE [facility] 09-17-2023 11:23-0400 Systolic Blood Pressure Non-Invasive 109 mm[Hg] FRANKLYN VERGARAAbhishek IMPLEMENTATION MANAGER-PAINT MIXER MACHINE [facility] 09-17-2023 09:19-0400 Heart rate 83 /min FRANKLYN RESTREPO IMPLEMENTATION MANAGER-PA[employer] MIXER MACHINE [facility] 09-17-2023 08:14-0400 Blood Pressure Location FRANKLYN VERAGRAAbhishek IMPLEMENTATION MANAGER-PAINT MIXER MACHINE [facility] 09-17-2023 08:14-0400 Blood Pressure Method FRANKLYN VERGARAAbhishek IMPLEMENTATION MANAGER-PAINT MIXER MACHINE [facility] 09-17-2023 08:14-0400 Body temperature 97.52 [degF] FRANKLYN RESTREPO IMPLEMENTATION MANAGER-PAINT MIXER MACHINE [facility] 09-17-2023 08:14-0400 Diastolic Blood Pressure Non-Invasive 79 mm[Hg] FRANKLYN RIVERSDULCE MARIA IMPLEMENTATION MANAGER-PAINT MIXER MACHINE [facility] 09-17-2023 08:14-0400 Heart rate 84 /min FRANKLYN RIVERSDULCE MARIA IMPLEMENTATION MANAGER-PAINT MIXER MACHINE [facility] 09-17-2023 08:14-0400 Respiratory rate 16 /min FRANKLYN RIVERSDULCE MARIA IMPLEMENTATION MANAGER-PAINT MIXER MACHINE [facility] 09-17-2023 08:14-0400 Systolic Blood Pressure Non-Invasive 118 mm[Hg] FRANKLYN RIVERSDULCE MARIA IMPLEMENTATION MANAGER-PA[employer] MIXER MACHINE [facility] 09-17-2023 07:39-0400 Heart rate 80 /min FRANKLYN VERGARAAbhishek IMPLEMENTATION MANAGER-PAINT MIXER MACHINE [facility] 09-17-2023 07:39-0400 Heart rate 76 /min FRANKLYN VERGARAAbhishek IMPLEMENTATION MANAGER-PAINT MIXER MACHINE [facility] 09-17-2023 07:39-0400 Reason For Taking VItal Signs FRANKLYNBANDAR RIVERSDULCE MARIA IMPLEMENTATION MANAGER-PAINT MIXER MACHINE [facility] 09-16-2023 16:55-0400 Body height 188 cm FRANKLYN RIVERSDULCE MARIA IMPLEMENTATION MANAGER-PAINT MIXER MACHINE [facility] 09-16-2023 16:55-0400 Body weight 104.5 kg FRANKLYNBANDAR RIVERSDULCE MARIA IMPLEMENTATION MANAGER-PAINT MIXER MACHINE [facility] 09-16-2023 16:55-0400 Body weight 29.57 kg/m2 FRANKLYNBANDAR RIVERSDULCE MARIA IMPLEMENTATION MANAGER-PAINT MIXER MACHINE [facility] 09-16-2023 14:32-0400 Mean blood pressure 97 mm[Hg] FRANKLYN RESTREPO IMPLEMENTATION MANAGER-PAINT MIXER MACHINE [facility] 09-16-2023 14:06-0400 Mean blood pressure 103 mm[Hg] FRANKLYN RESTREPO IMPLEMENTATION MANAGER-PAINT MIXER MACHINE [facility] 09-16-2023 13:09-0400 Body height 188 cm FRANKLYN RESTREPO IMPLEMENTATION MANAGER-PAINT MIXER MACHINE [facility] 09-16-2023 13:09-0400 Body weight 104.5 kg FRANKLYN RESTREPO IMPLEMENTATION MANAGER-PAINT MIXER MACHINE [facility] 08-30-2023 09:06-0400 Diastolic Blood Pressure Non-Invasive 77 mm[Hg] SAM MODI MD [address] [place] [id number] 08-30-2023 09:06-0400 Systolic Blood Pressure Non-Invasive 121 mm[Hg] SAM MODI MD [address] 08-30-2023 09:05-0400 Heart rate 86 /min SAM MODI MD [address] [place] [id number] 08-30-2023 09:05-0400 Respiratory Rate - Anes 0 br/min SAM MODI MD [address] [place] [id number] 08-30-2023 09:03-0400 Diastolic Blood Pressure Non-Invasive 82 mm[Hg] SAM MODI MD [address] 08-30-2023 09:03-0400 Systolic Blood Pressure Non-Invasive 116 mm[Hg] SAM MODI MD [address] 08-30-2023 09:00-0400 Diastolic Blood Pressure Non-Invasive 84 mm[Hg] SAM MODI MD [address] [place] [id number] 08-30-2023 09:00-0400 Heart rate 85 /min SAM MODI MD [address] [place] [address] 08-30-2023 09:00-0400 Respiratory Rate - Anes 14 br/min SAM MODI MD [address] [place] [address] 08-30-2023 09:00-0400 Systolic Blood Pressure Non-Invasive 125 mm[Hg] SAM MODI MD [address] [place] [address] 08-30-2023 06:46-0400 Body height 188 cm SAM MODI MD [address] [place] [address] 08-30-2023 06:46-0400 Body temperature 97.7 [degF] SAM MODI MD [address] [place] [address] 08-30-2023 06:46-0400 Body weight 30.56 kg/m2 SAM MODI MD [address] [place] [id number] 08-30-2023 06:46-0400 Body weight 108 kg SAM MODI MD [address] [place] [id number] 08-30-2023 06:46-0400 Heart rate 90 /min SAM MODI MD [address] [place] [id number] 08-30-2023 06:46-0400 Respiratory rate 16 /min SAM MODI MD [address] [place] [id number] 06-18-2023 09:18-0500 Diastolic Blood Pressure Non-Invasive 86 mm[Hg] DR XU KOWALSKI MD [address] [place] [id number] 06-18-2023 09:18-0500 Heart rate 60 /min DR XU KOWALSKI MD [address] [place] [id number] 06-18-2023 09:18-0500 Respiratory rate 16 /min DR XU KOWALSKI MD [address] [place] [address] 06-18-2023 09:18-0500 Systolic Blood Pressure Non-Invasive 124 mm[Hg] DR XU KOWALSKI MD [address] [place] [id number] 06-18-2023 09:11-0500 Diastolic Blood Pressure Non-Invasive 75 mm[Hg] DR XU KOWALSKI MD [address] [place] [address] 06-18-2023 09:11-0500 Heart rate 60 /min DR XU KOWALSKI MD [address] [place] [address] 06-18-2023 09:11-0500 Respiratory rate 18 /min DR XU KOWALSKI MD [address] [place] [address] 06-18-2023 09:11-0500 Systolic Blood Pressure Non-Invasive 125 mm[Hg] DR XU KOWALSKI MD [address] [place] [address] 06-18-2023 09:08-0500 Body temperature 98.78 [degF] DR XU KOWALSKI MD [address] [place] [address] 06-18-2023 09:08-0500 Diastolic Blood Pressure Non-Invasive 75 mm[Hg] DR XU KOWALSKI MD [address] [place] [address] 06-18-2023 09:08-0500 Heart rate 60 /min DR XU KOWALSKI MD [address] [place] [address] 06-18-2023 09:08-0500 Systolic Blood Pressure Non-Invasive 124 mm[Hg] DR XU KOWALSKI MD [address] [place] [address] 06-18-2023 09:05-0500 Heart rate 61 /min DR XU KOWALSKI MD [address] [place] [address] 06-18-2023 09:05-0500 Respiratory Rate - Anes 0 br/min DR XU KOWALSKI MD [address] [place] [address] 06-18-2023 08:55-0500 Respiratory Rate - Anes 0 br/min DR XU KOWALSKI MD [address] [place] [address] 06-18-2023 06:27-[address] XU KOWALSKI MD [address] [place] [address] 06-18-2023 06:27-[address] XU KOWALSKI MD [address] [place] [address] 06-18-2023 06:27-0500 Body height [address] XU KOWALSKI MD [facility] 06-18-2023 06:27-0500 Body temperature 97.88 [degF] DR XU KOWLASKI MD [facility] 06-18-2023 06:27-0500 Body weight [address] XU KOWALSKI MD [facility] 06-18-2023 06:27-0500 Heart rate 74 /min DR XU KOWALSKI MD [facility] 11-30-2022 09:10-0400 Diastolic Blood Pressure Non-Invasive 75 1 DELMAR MORENO MD [facility] 11-30-2022 09:10-0400 Heart rate 87 /min DELMAR MORENO MD [facility] 11-30-2022 09:10-0400 Respiratory rate 12 /min DELMAR MORENO MD [facility] 11-30-2022 09:10-0400 Systolic Blood Pressure Non-Invasive 116 1 DELMAR MORENO MD [facility] 11-30-2022 09:05-0400 Diastolic Blood Pressure Non-Invasive 80 1 DELMAR MORENO MD [facility] 11-30-2022 09:05-0400 Heart rate 87 /min DELMAR MORENO MD [facility] 11-30-2022 09:05-0400 Respiratory rate 15 /min DELMAR MORENO MD [facility] 11-30-2022 09:05-0400 Systolic Blood Pressure Non-Invasive 118 1 DELMAR MORENO MD [facility] 11-30-2022 09:00-0400 Diastolic Blood Pressure Non-Invasive 84 1 DELMAR MORENO MD [facility] 11-30-2022 09:00-0400 Heart rate 86 /min DELMAR MORENO MD [facility] 11-30-2022 09:00-0400 Systolic Blood Pressure Non-Invasive 112 1 DELMAR MORENO MD [facility] 11-30-2022 08:57-0400 Body temperature 96.8 [degF] DELMAR MORENO MD [facility] 11-30-2022 08:50-0400 Respiratory Rate - Anes 12 br/min DELMAR MORENO MD [facility] 11-30-2022 08:45-0400 Respiratory Rate - Anes 12 br/min DELMAR MORENO MD [facility] 11-30-2022 08:40-0400 Respiratory Rate - Anes 16 br/min DELMAR MORENO MD [facility] 11-30-2022 06:48-0400 Body height 182.88 cm DELMAR MORENO MD [facility] 11-30-2022 06:48-0400 Body temperature 99.32 [degF] DELMAR MORENO MD [facility] 11-30-2022 06:48-0400 Body weight 104.55 kg DELMAR MORENO MD [facility] 11-30-2022 06:48-0400 Heart rate 63 /min DELMAR MORENO MD [facility] 11-25-2022 13:40-0400 Blood Pressure Cuff Size DELMAR MORENO MD [facility] 11-25-2022 13:40-0400 Blood Pressure Location DELMAR MORENO MD [facility] 11-25-2022 13:40-0400 Blood Pressure Method DELMAR MORENO MD [facility] 11-25-2022 13:40-0400 Body height 188 cm DELMAR MORENO MD [facility] 11-25-2022 13:40-0400 Body weight 104.5 kg DELMAR MORENO MD [facility] 11-25-2022 13:40-0400 Body weight 29.57 kg/m2 DELMAR MORENO MD [facility] 11-25-2022 13:40-0400 Diastolic Blood Pressure Non-Invasive 90 1 DELMAR MORENO MD [facility] 11-25-2022 13:40-0400 Heart rate 72 /min DELMAR MORENO MD [facility] 11-25-2022 13:40-0400 Systolic Blood Pressure Non-Invasive 150 1 DELMAR MORENO MD [facility] 10-26-2022 09:34-0400 Diastolic Blood Pressure Non-Invasive 95 1 DELMAR MORENO MD [facility] 10-26-2022 09:34-0400 Heart rate 61 /min DELMAR MORENO MD [facility] 10-26-2022 09:34-0400 Respiratory rate 16 /min DELMAR MORENO MD [facility] 10-26-2022 09:34-0400 Systolic Blood Pressure Non-Invasive 132 1 DELMAR MORENO MD [facility] 10-26-2022 09:29-0400 Diastolic Blood Pressure Non-Invasive 102 1 DELMAR MORENO MD [facility] 10-26-2022 09:29-0400 Heart rate 63 /min DELMAR MORENO MD [facility] 10-26-2022 09:29-0400 Respiratory rate 16 /min DELMAR MORENO MD [facility] 10-26-2022 09:29-0400 Systolic Blood Pressure Non-Invasive 135 1 DELMAR MORENO MD [facility] 10-26-2022 09:24-0400 Diastolic Blood Pressure Non-Invasive 103 1 DELMAR MORENO MD [facility] 10-26-2022 09:24-0400 Heart rate 62 /min DELMAR MORENO MD [facility] 10-26-2022 09:24-0400 Respiratory rate 16 /min DELMAR MORENO MD [facility] 10-26-2022 09:24-0400 Systolic Blood Pressure Non-Invasive 133 1 DELMAR MORENO MD [facility] 10-26-2022 09:10-0400 Respiratory Rate - Anes 18 br/min DELMAR MORENO MD [facility] 10-26-2022 09:05-0400 Respiratory Rate - Anes 15 br/min DELMAR MORENO MD [facility] 10-26-2022 08:08-0400 Body height 188 cm DELMAR MORENO MD [facility] 10-26-2022 08:08-0400 Body weight 108 kg DELMAR MORENO MD [facility] 10-26-2022 08:08-0400 Body weight 30.56 kg/m2 DELMAR MORENO MD [facility] 10-26-2022 07:42-0400 Body height 188 cm DELMAR MORENO MD [facility] 10-26-2022 07:42-0400 Body temperature 97.52 [degF] DELMAR MORENO MD [facility] 10-26-2022 07:42-0400 Body weight 108 kg DELMAR MORENO MD [facility] 10-26-2022 07:42-0400 Heart rate 68 /min DELMAR MORENO MD [facility] 09-05-2022 07:46-0400 Body temperature 98.6 [degF] [employer]MENTATION MANAGER[employer] MACHINE [facility] 09-05-2022 07:46-0400 Diastolic Blood Pressure Non-Invasive 85 1 FRANKLY[employer] IMPLEMENTATION MANAGER-[employer] MACHINE [facility] 09-05-2022 07:46-0400 Heart rate 87 /min [employer] IMPLEMENTATION MANAGER-[employer] MACHINE [facility] 09-05-2022 07:46-0400 Reason For Taking VItal Signs FRANKLYN [employer] IMPLEMENTATION MANAGER-[employer] MACHINE [facility] 09-05-2022 07:46-0400 Respiratory rate 16 /min FRANKLYN [employer] IMPLEMENTATION MANAGER-[employer] MACHINE [facility] 09-05-2022 07:46-0400 Systolic Blood Pressure Non-Invasive 139 1 FRANKLY[employer] IMPLEMENTATION MANAGER-PA[employer] M[employer] MACHINE [facility] 09-04-2022 19:45-0400 Body temperature 98.42 [degF] FRANKLYN [employer] IMPLEMENTATION MANAGER-PA[employer] M[employer] MACHINE [facility] 09-04-2022 19:45-0400 Diastolic Blood Pressure Non-Invasive 70 1 FRANKLY[employer] IMPLEMENTATION MANAGER-PA[employer] MACHINE [facility] 09-04-2022 19:45-0400 Heart rate 74 /min FRANKLYN [employer] IMPLEMENTATION MANAGER-PA[employer] M[employer] MACHINE [facility] 09-04-2022 19:45-0400 Reason For Taking VItal Signs FRANKLYN [employer] IMPLEMENTATION MANAGER-PA[employer] M[employer] MACHINE [facility] 09-04-2022 19:45-0400 Respiratory rate 16 /min FRANKLYN [employer] IMPLEMENTATION MANAGER-PA[employer] M[employer] MACHINE [facility] 09-04-2022 19:45-0400 Systolic Blood Pressure Non-Invasive 123 1 FRANKLYN [employer] IMPLEMENTATION MANAGER-PA[employer] M[employer] MACHINE [facility] 09-04-2022 17:03-0400 Body temperature 97.88 [degF] FRANKLYN [employer] IMPLEMENTATION MANAGER-PA[employer] M[employer] MACHINE [facility] 09-04-2022 17:03-0400 Diastolic Blood Pressure Non-Invasive 77 1 FRANKLYN [employer] IMPLEMENTATION MANAGER-PA[employer] M[employer] MACHINE [facility] 09-04-2022 17:03-0400 Heart rate 70 /min FRANKLYN [employer] IMPLEMENTATION MANAGER-PA[employer] M[employer] MACHINE [facility] 09-04-2022 17:03-0400 Reason For Taking VItal Signs FRANKLYN [employer] IMPLEMENTATION MANAGER-PA[employer] M[employer] MACHINE [facility] 09-04-2022 17:03-0400 Respiratory rate 14 /min FRANKLYN [employer] IMPLEMENTATION MANAGER-PA[employer] M[employer] MACHINE [facility] 09-04-2022 17:03-0400 Systolic Blood Pressure Non-Invasive 125 1 FRANKLYNBANDAR VERGARAN IMPLEMENTATION MANAGER-PAINT MIXER MACHINE [facility] 09-04-2022 07:03-0400 Heart rate 71 /min FRANKLYNBANDAR VERGARAN IMPLEMENTATION MANAGER-PA[employer] MIXER MACHINE [facility] 09-04-2022 03:23-0400 Body weight 108.7 kg FRANKLYNBANDAR VERGARAN IMPLEMENTATION MANAGER-PA[employer] MIXER MACHINE [facility] 09-04-2022 03:19-0400 Heart rate 69 /min FRANKLYNBANDAR VERGARAN IMPLEMENTATION MANAGER-PA[employer] MIXER MACHINE [facility] 09-03-2022 23:19-0400 Heart rate 70 /min FRANKLYNBANDAR VERGARAN IMPLEMENTATION MANAGER-PA[employer] MIXER MACHINE [facility] 09-03-2022 19:48-0400 Heart rate 72 /min FRANKLYNBANDAR VERGARAN IMPLEMENTATION MANAGER-PA[employer] MIXER MACHINE [facility] 09-03-2022 03:42-0400 Heart rate 68 /min FRANKLYNBANDAR VERGARAN IMPLEMENTATION MANAGER-PA[employer] MIXER MACHINE [facility] 09-02-2022 19:29-0400 Heart rate 70 /min FRANKLYNBANDAR VERGARAN IMPLEMENTATION MANAGER-PA[employer] MIXER MACHINE [facility] 08-24-2022 15:25-0400 Body height 187.96 cm FRANKLYNBANDAR VERGARAN IMPLEMENTATION MANAGER-PAINT MIXER MACHINE [facility] 08-24-2022 15:25-0400 Body weight 120.1 kg FRANKLYNBANDAR VERGARAN IMPLEMENTATION MANAGER-PA[employer] MIXER MACHINE [facility] 08-24-2022 15:25-0400 Body weight 33.99 kg/m2 FRANKLYNBANDAR VERGARAN IMPLEMENTATION MANAGER-PAINT MIXER MACHINE [facility] 08-24-2022 08:50-0400 Diastolic Blood Pressure Non-Invasive 70 1 [facility] [employer] [facility] 08-24-2022 08:50-0400 Heart rate 86 /min [facility] [employer] [facility] 08-24-2022 08:50-0400 Systolic Blood Pressure Non-Invasive 116 1 [facility] [employer] [facility] 08-24-2022 06:56-0400 Body temperature 99.14 [degF] [facility] [employer] [facility] 08-24-2022 06:56-0400 Diastolic Blood Pressure Non-Invasive 63 1 [facility] 08-24-2022 06:56-0400 Heart rate 83 /min [facility] 08-24-2022 06:56-0400 Respiratory rate 16 /min [facility] [employer] [facility] 08-24-2022 06:56-0400 Systolic Blood Pressure Non-Invasive 97 1 [facility] [employer] [facility] 08-24-2022 00:10-0400 Body temperature 98.96 [degF] [facility] 08-24-2022 00:10-0400 Diastolic Blood Pressure Non-Invasive 62 1 [facility] [employer] [facility] 08-24-2022 00:10-0400 Heart rate 86 /min [facility] [employer] [facility] 08-24-2022 00:10-0400 Respiratory rate 16 /min [facility] [employer] [facility] 08-24-2022 00:10-0400 Systolic Blood Pressure Non-Invasive 91 1 [facility] [employer] [facility] 08-23-2022 14:48-0400 Body temperature 98.96 [degF] [facility] 08-23-2022 14:48-0400 Respiratory rate 17 /min [facility] DO [facility] 08-23-2022 07:32-0400 Heart rate 85 /min [facility] DO [facility] 08-20-2022 14:38-0400 Blood Pressure Location [facility] DO [facility] 08-20-2022 14:38-0400 Blood Pressure Method [facility] DO [facility] 08-20-2022 14:38-0400 Heart rate 76 /min [facility] DO [facility] 08-20-2022 11:35-0400 Heart rate 78 /min [facility] DO [facility] 08-20-2022 07:59-0400 Heart rate 76 /min [facility] DO [facility] 08-19-2022 19:24-0400 Blood Pressure Location [facility] DO [facility] 08-19-2022 19:24-0400 Blood Pressure Method [facility] DO [facility] 08-19-2022 14:49-0400 Blood Pressure Location [facility] DO [facility] 08-19-2022 14:49-0400 Blood Pressure Method [facility] DO [facility] 08-19-2022 11:19-0400 Blood Pressure Cuff Size [facility] DO [facility] 08-19-2022 08:46-0400 Blood Pressure Cuff Size [facility] DO [facility] 08-18-2022 18:58-0400 Body temperature 99.14 [degF] [facility] DO [facility] 08-18-2022 15:15-0400 Body temperature 100.76 [degF] [facility] [employer] [facility] 08-18-2022 11:09-0400 Blood Pressure Cuff Size [facility] [employer] [facility] 08-17-2022 01:05-0400 Body height 188 cm [facility] [employer] [facility] 08-17-2022 01:05-0400 Body weight 113.6 kg [facility] [employer] [facility] 08-17-2022 01:050400 Body weight 32.14 kg/m2 [facility] [employer] [facility] 08-17-2022 00:38-0400 Body temperature 97.16 [degF] [facility] [employer] [facility] 08-17-2022 00:38-0400 Heart rate 77 /min [facility] [employer] [facility] 08-17-2022 00:38-0400 Mean blood pressure 107 mm[Hg] [facility] [employer] [facility] 08-17-2022 00:18-0400 Heart rate 75 /min [facility] [employer] [facility] 08-17-2022 00:18-0400 Mean blood pressure 113 mm[Hg] [facility] [employer] [facility] 08-16-2022 23:48-0400 Mean blood pressure 115 mm[Hg] [facility] [employer] [facility] 08-16-2022 23:30-0400 Body temperature 96.8 [degF] [facility] [employer] [facility] 08-16-2022 23:25-0400 Respiratory Rate - Anes 0 br/min [facility] [employer] [facility] 08-16-2022 23:20-0400 Respiratory Rate - Anes 23 br/min [facility] [employer] [facility] 08-16-2022 23:15-0400 Body temperature 99.25 [degF] [facility] [employer] [facility] 08-16-2022 23:15-0400 Respiratory Rate - Anes 12 br/min [facility] [employer] [facility] 08-16-2022 23:10-0400 Body temperature 99.21 [degF] [facility] [employer] [facility] 08-16-2022 23:05-0400 Body temperature 99.19 [degF] [facility] [employer] [facility] 08-16-2022 14:14-0400 Body temperature 97.88 [degF] [facility] [employer] [facility] 08-16-2022 14:14-0400 Body weight 113.6 kg [facility] 06-29-2022 08:53-0400 Diastolic Blood Pressure Non-Invasive 107 1 DELMAR MORENO MD [facility] 06-29-2022 08:53-0400 Heart rate 57 /min DELMAR MORENO MD [facility] 06-29-2022 08:53-0400 Systolic Blood Pressure Non-Invasive 158 1 DELMAR MORENO MD [facility] 06-29-2022 08:01-0400 Body height 188 cm DELMAR MORENO MD [facility] 06-29-2022 08:01-0400 Body temperature 97.7 [degF] DELMAR MORENO MD [facility] 06-29-2022 08:01-0400 Body weight 120.5 kg DELMAR MORENO MD [facility] 06-29-2022 08:01-0400 Body weight 34.09 kg/m2 DELMAR MORENO MD [facility] 06-29-2022 08:01-0400 Diastolic Blood Pressure Non-Invasive 86 1 DELMAR MORENO MD [facility] 06-29-2022 08:01-0400 Heart rate 53 /min DELMAR MORENO MD [facility] 06-29-2022 08:01-0400 Respiratory rate 20 /min DELMAR MORENO MD [facility] 06-29-2022 08:01-0400 Systolic Blood Pressure Non-Invasive 138 1 DELMAR MORENO MD [facility] 12-05-2021 04:36-0400 Body height 188 cm SOFIE CONDE DO [facility] 12-05-2021 04:36-0400 Body temperature 98.42 [degF] SOFIE CONDE DO [facility] 12-05-2021 04:36-0400 Body weight 110 kg SOFIE CONDE DO [facility] 12-05-2021 04:36-0400 Diastolic blood pressure 100 mm[Hg] SOFIE CONDE DO [facility] 12-05-2021 04:36-0400 Heart rate 67 /min SOFIE CONDE DO [facility] 12-05-2021 04:36-0400 Respiratory rate 20 /min SOFIE CONDE DO [facility] 12-05-2021 04:36-0400 Systolic blood pressure 156 mm[Hg] SOFIE CONDE DO [facility] 12-02-2021 10:50-0400 Diastolic blood pressure 78 mm[Hg] Pacc 1 Work Phone: [facility] 12-02-2021 10:50-0400 Systolic blood pressure 140 mm[Hg] Pacc 1 Work Phone: [facility] 12-02-2021 10:47-0400 Body height 188 cm Pacc 1 Work Phone: [facility] 12-02-2021 10:47-0400 Heart rate 67 /min Pacc 1 Work Phone: [facility] 12-02-2021 10:47-0400 Respiratory rate 18 /min Pacc 1 Work Phone: [facility] 12-02-2021 10:47-0400 SaO2% (BldA) [Mass fraction] 97 % Pacc 1 Work Phone: [facility] 07-01-2021 15:01-0400 Body height [address] FIFI TIWARI MD [facility] 07-01-2021 15:01-0400 Body weight 118.[address] FIFI TIWARI MD [facility] 07-01-2021 15:01-0400 Body weight 33.44 kg/m2 DR FIFI TIWARI MD [facility] 07-01-2021 15:01-0400 diastolic 88 mm[Hg] DR FIFI TIWARI MD [facility] 07-01-2021 15:01-0400 Heart rate 82 /min DR FIFI TIWARI MD [facility] 07-01-2021 15:01-0400 systolic 142 mm[Hg] DR FIFI TIWARI MD [facility] 06-16-2021 08:40-0500 Diastolic blood pressure 108 mm[Hg] DR XU KOWALSKI MD [facility] 06-16-2021 08:40-0500 Heart rate 84 /min DR XU KOWALSKI MD [facility] 06-16-2021 08:40-0500 Mean blood pressure 123 mm[Hg] DR XU KOWALSKI MD [facility] 06-16-2021 08:40-0500 Respiratory rate 18 /min DR XU KOWALSKI MD [facility] 06-16-2021 08:40-0500 Systolic blood pressure 152 mm[Hg] DR XU KOWALSKI MD [facility] 06-16-2021 08:25-0500 Diastolic Blood Pressure NBP [address] XU KOWALSKI MD [facility] 06-16-2021 08:25-0500 Heart rate 75 /min DR XU KOWALSKI MD [facility] 06-16-2021 08:25-0500 Respiratory rate 16 /min DR XU KOWALSKI MD [facility] 06-16-2021 08:25-0500 Systolic Blood Pressure NBP [address] XU KOWALSKI MD [facility] 06-16-2021 08:20-0500 Body temperature 97.88 [degF] DR XU KOWALSKI MD [facility] 06-16-2021 08:20-0500 Diastolic Blood Pressure NBP [address] XU KOWALSKI MD [address] [place] [address] 06-16-2021 08:20-0500 Heart rate 75 /min DR XU KOWALSKI MD [address] [place] [address] 06-16-2021 08:20-0500 Respiratory rate 16 /min DR XU KOWALSKI MD [address] 06-16-2021 08:20-0500 Systolic Blood Pressure NBP [address] XU KOWALSKI MD [address] 06-16-2021 08:15-0500 Heart rate 81 /min DR XU KOWALSKI MD [facility] 06-16-2021 08:14-0500 Diastolic Blood Pressure NBP [address] XU KOWALSKI MD [facility] 06-16-2021 08:14-0500 Systolic Blood Pressure NBP [address] XU KOWALSKI MD [facility] 06-16-2021 08:04-0500 diastolic 100 mm[Hg] DR XU KOWALSKI MD [facility] 06-16-2021 08:04-0500 systolic 162 mm[Hg] DR XU KOWALSKI MD [facility] 06-16-2021 06:25-0500 Body height [address] XU KOWALSKI MD [facility] 06-16-2021 06:25-0500 Body temperature 98.6 [degF] DR XU KOWALSKI MD [facility] 06-16-2021 06:25-0500 Body weight 122.[address] XU KOWALSKI MD [facility] 06-16-2021 06:25-0500 diastolic 100 mm[Hg] DR XU KOWALSKI MD [facility] 06-16-2021 06:25-0500 Heart rate 84 /min DR XU KOWALSKI MD [facility] 06-16-2021 06:25-0500 systolic 156 mm[Hg] DR XU KOWALSKI MD [facility] Encounters Encounter Date Encounter Type Care Provider Facility Start: 12-13-2024 ambulatory Hoda Grayson [facility] lit:[facility] Start: 11-02-2024 End: 11-02-2024 Emergency department patient visit AVI SAUL MD [facility] Start: 10-20-[address] HODA GRAYSON MD Facility:[facility] Start: 10-18-2024 End: 10-18-[address] Hoda Grayson MD Work Phone: -Laboratory Start: 10-18-2024 End: 10-18-[address] Jerrod Reyes MD -Laboratory Work Phone: Start: 10-18-2024 End: 10-18-2024 ambulatory Hoda Grayson Facility:[facility] Start: 07-26-2024 End: 08-23-2024 Telephone encounter Antione Cardenas DO Work Phone: [facility] Comment on above: Home Visit Start: 07-14-2024 End: 07-14-2024 Office outpatient visit 10 minutes Earline Lew PA-C Work Phone: [facility] [place] Comment on above: Encounter for postop erative care (Primary Dx) Start: 07-14-2024 End: 07-14-[facility] Start: 07-07-2024 End: 07-07-2024 Postop follow up visit related to original px Antione Cardenas Work Phone: [facility] Comment on above: Encounter for postop erative care (Primary Dx) Start: 07-07-2024 End: 07-07-2024 [facility] Start: 06-21-2024 End: 06-26-2024 Evaluation and management of inpatient Antione Cardenas Work Phone: [facility] Surgical Progressive Care Unit PCU H6 Comment on above: Incisional hernia wi thout obstruction or gangrene (Primary Dx) Start: 05-29-2024 End: 05-29-2024 ambulatory [facility] Start: 05-29-2024 End: 05-29-2024 Encounter for other preprocedural examination AN[facility]IONE [facility] Start: 05-25-2024 End: 05-29-2024 Telephone encounter Earline Lew PA-C Work Phone: [facility] [place] Comment on above: Other (Postop Pain M gmt) Start: 05-19-2024 End: 05-19-[address] HODA GRAYSON MD Facility:[facility] Start: 05-19-2024 End: 05-19-2024 Patient encounter procedure EARLINE LEW PA-C [facility] Start: 05-18-2024 End: 05-19-2024 Telephone encounter Antione Mellert DO Work Phone: [email or web address] Comment on above: Other Start: 05-12-2024 End: 05-12-[address] HODA GRAYSON MD Facility:[facility] Start: 05-12-2024 End: 05-12-[address] XU KOWALSKI MD [facility] Start: 05-06-2024 End: 05-25-2024 Admission to same day surgery center [facility] Work Phone: [email or web address] Comment on above: Incisional hernia wi thout obstruction or gangrene (Primary Dx); Preop testing Start: 05-06-2024 End: 05-25-2024 ambulatory Culinary Agents PA-C Work Phone: [email or web address] Start: 05-06-2024 End: 05-25-2024 Patient encounter status ClearSlide-C Work Phone: [email or web address] Work Phone: Start: 05-05-2024 End: 05-05-2024 Telephone encounter Kelsie Montenegro MD Work Phone: General Surgery Comment on above: Request Outside [facility] Start: 03-31-2024 End: 04-04-[address] HODA GRAYSON MD Facility:A Start: 03-29-2024 End: 03-29-2024 ambulatory Hoda Grayson Facility:[facility] Start: 03-22-2024 End: 03-22-2024 Telephone encounter Antione Cardenas DO Work Phone: [email or web address] Comment on above: Other Start: 02-04-2024 End: 02-04-2024 Office outpatient new 45 minutes Antione Peraltakeri DO Work Phone: [email or web address] Winn Comment on above: Incisional hernia, w ithout obstruction or gangrene (Primary Dx); Type 2 diabetes mellitus without complication, without long-term current use of insulin (CMS/HCC) (HCC); Cirrhosis of liver without ascites, unspecified hepatic cirrhosis type (HCC); Current use of assisted anticoagulation Start: 02-04-2024 End: 02-04-2024 ambulatory HODA GRAYSON [facility] Start: 12-21-2023 End: 12-21-2023 Emergency department patient visit AVI SAUL MD [facility] Start: 10-04-2023 End: 10-05-2023 ambulatory SAM MODI MD Facility:A Start: 10-04-2023 End: 10-05-2023 Observation SAM MODI MD [facility] Start: 09-21-2023 End: 09-21-[address] HODA GRAYSON MD Facility:B Start: 09-16-2023 End: 09-17-2023 Emergency department patient visit SCOTT CEE MD Facility:B Start: 09-16-2023 End: 09-17-2023 Observation FRANKLYN RESTREPO IMPLEMENTATION MANAGER-PAINT MIXER MACHINE [facility] Start: 09-08-2023 End: 09-08-[address] HODA GRAYSON MD Facility:B Start: 09-08-2023 End: 09-08-2023 Patient encounter procedure SAM MODI MD [facility] Start: 09-03-2023 End: 09-03-[address] HODA GRAYSON MD Facility:B Start: 09-03-2023 End: 09-03-2023 Patient encounter procedure MS MIL JUSTIN [facility] Start: 08-31-[address] HODA GRAYSON MD Facility:A Start: 08-30-2023 End: 08-30-[address] HODA GRAYSON MD Facility:A Start: 08-30-2023 End: 08-30-2023 SAME DAY STAY SAM MODI MD [facility] Start: 08-05-2023 End: 08-05-[address] HODA GRAYSON MD Facility:B Start: 08-05-2023 End: 08-05-[address] XU KOWALSKI MD [facility] Start: 06-18-2023 End: 06-18-[address] HODA GRAYSON MD Facility:A Start: 06-18-2023 End: 06-18-[address] XU KOWALSKI MD [facility] Start: 05-24-2023 End: 05-24-[address] HODA GRAYSON MD Facility:B Start: 05-24-2023 End: 05-24-2023 Patient encounter procedure DELMAR MORENO MD [facility] Start: 03-29-2023 End: 03-29-2023 ambulatory DELMAR MORENO MD Facility:B Start: 03-29-2023 End: 03-29-2023 Patient encounter procedure DELMAR MORENO MD [facility] Start: 02-23-2023 End: 02-23-[address] XU KOWALSKI MD Facility:B Start: 02-23-2023 End: 02-23-[address] XU KOWALSKI MD [facility] Start: 02-09-2023 End: 02-09-[address] XU KWOALSKI MD Facility:B Start: 02-09-2023 End: 02-09-[address] XU KOWALSKI MD [facility] Start: 02-01-2023 End: 02-01-2023 ambulatory DELMAR MORENO MD Facility:B Start: 01-04-2023 End: 01-04-2023 ambulatory DELMAR MORENO MD Facility:B Start: 01-04-2023 End: 01-04-2023 Patient encounter procedure DELMAR MORENO MD [facility] Start: 12-07-2022 End: 12-07-2022 Patient encounter procedure DELMAR MORENO MD [facility] Start: 11-30-2022 End: 11-30-2022 SAME DAY STAY DELMAR MORENO MD [facility] Start: 11-25-2022 End: 11-25-2022 Admission to establishment DELMAR MORENO MD [facility] Start: 10-26-2022 End: 10-26-2022 SAME DAY STAY DELMAR MORENO MD [facility] Start: 09-29-2022 End: 09-29-[address] XU KOWALSKI MD [facility] Start: 09-14-2022 End: 11-05-2022 Coordination of care plan FRANKLYN RESTREPO IMPLEMENTATION MANAGER-PAINT MIXER MACHINE [facility] Start: 08-24-2022 End: 09-05-2022 Evaluation and management of inpatient FRANKLYN RESTREPO IMPLEMENTATION MANAGER-PAINT MIXER MACHINE [facility] Start: 08-16-2022 End: 08-24-2022 Evaluation and management of inpatient [facility] Start: 07-20-2022 End: 07-20-[address] XU KOWALSKI MD [facility] Start: 07-13-2022 End: 07-13-2022 Patient encounter procedure DELMAR MORENO MD [facility] Start: 06-29-2022 End: 06-29-2022 SAME DAY STAY DELMAR MORENO MD [facility] Start: 05-28-2022 End: 05-28-2022 ambulatory [facility] Work Phone: Start: 05-28-2022 End: 05-28-2022 Patient encounter procedure [facility] Start: 05-25-2022 End: 05-25-2022 Patient encounter procedure DELMAR MORENO MD [facility] Start: 05-13-2022 End: 05-13-2022 Patient encounter procedure TYLER Henri ROJAS IMPLEMENTATION MANAGER-PAINT MIXER MACHINE [facility] Start: 02-11-2022 End: 02-11-2022 ambulatory [facility] Work Phone: Start: 02-11-2022 End: 02-11-2022 Patient encounter procedure [facility] Start: 12-24-2021 End: 12-25-2021 ambulatory NASH HENRY Facility:[id number] Start: 12-23-2021 Telephone encounter Meghana Christensen RN Pre Anesthesia Comment on above: note to anesthesia t o reveiw clearance Start: 12-16-2021 End: 12-16-[address] XU KOWALSKI MD [facility] Start: 12-05-2021 End: 12-05-2021 Emergency department patient visit SOFIE CONDE [facility] Start: 12-02-2021 Encounter for other preprocedural examination NASH HENRY [facility] Start: 12-02-2021 End: 12-02-2021 Admission to establishment [place] [id number] Work Phone: [facility] Start: 12-02-2021 End: 12-03-2021 ambulatory NASH HENRY Pre Anesthesia Comment on above: Pre-op testing (Prim shell Dx); Arthritis of left shoulder region Start: 12-02-2021 End: 12-02-2021 [facility] Work Phone: Pre [facility] Start: 07-01-2021 End: 07-01-[address] FIFI TIWARI MD [facility] Start: 06-16-2021 End: 06-16-[address] XU KOWALSKI MD [facility] Start: 06-04-2021 End: 06-04-2021 Patient encounter procedure JENN SAAVEDRA IMPLEMENTATION MANAGER-PAINT MIXER MACHINE [facility] Start: 05-23-2021 End: 04-22-2022 Lab-Standing Order DR XU KOWALSKI MD [facility] Start: 05-23-2021 End: 05-23-[address] FIFI TIWARI MD [facility] Start: 10-05-2017 Patient encounter Dominick escalera Facility:[facility] Medical Building Procedures Date Procedure Procedure Detail Performing Clinician Start: 10-18-2024 Methadone measurement, urine Dr. Hoda Grayson MD Work Phone: Start: 10-18-[address] Naseem Grayson MD Work Phone: Comment on above: Test Ordered: [id number] Screen, Urine Negative ng/mL UI Reference Range: Yplovz=041Mfjgfaljmgp test includes Amphetamine and Methamphetamine.Barbiturates Negative ng/mL UI Reference Range: Ppszcv=400Zzrgoxbtlqzwcky Negative ng/mL UI Reference Range: Iybbdu=299Dnouvmr (Metab.), Urine Negative ng/mL UI Reference Range: Ubyzfp=360Rvwwlup Negative ng/mL UI Reference Range: Apygqc=759Qkpzld test includes Codeine, Morphine, Hydromorphone, Hydrocodone.6-Acetylmorphine, Urine Negative ng/mL UI Reference Range: Cutoff=10Oxycodone/Oxymorphone, Urine Negative ng/mL UI Reference Range: Psbbkk=209Ffmf includes Oxycodone and OxymorphonePCP, Urine Negative ng/mL UI Reference Range: Cutoff=25Methadone Screen, Urine Negative ng/mL UI Reference Range: Mefigw=649Hoummhxwkbfh, Urine Negative ng/mL UI Reference Range: Hiemnk=288Hwoslbay, Urine Negative ng/mL UI Reference Range: Cutoff=2.0Test includes Fentanyl and NorfentanylThis test was developed and its performance characteristicsdetermined by [facility]. It has not been cleared orapproved by the Food and Drug Administration.Tramadol Negative ng/mL UI Reference Range: Ufdlrh=360Keszjxoajdkye, Urine Negative ng/mL UI Reference Range: Cutoff=10Creatinine, Urine 176.2 mg/dL UI Reference Range: 20.0-300.0pH, Urine 5.9 UI Reference Range: 4.5-8.9Performed at: - [facility] [id number] [place], [place] [id number] Director: Se King PhD, Phone: [phone] at: [facility] Lab[address] [id number] Director: Manuel Sunshine PhD, Phone: [phone] Start: 06-26-2024 Basic metabolic pane l calcium total Kayleigh Lim MD Work Phone: Start: 06-25-2024 Basic metabolic pane l calcium total Kayleigh Lim MD Work Phone: Start: 06-24-2024 Basic metabolic pane l calcium total Kayleigh Lim MD Work Phone: Start: 06-23-2024 Basic metabolic pane l calcium total Kayleigh Lim MD Work Phone: Start: 06-23-2024 History of repair of umbilical hernia AVI SAUL MD Start: 06-22-2024 Basic metabolic pane l calcium total Kayleigh Lim MD Work Phone: Start: 06-21-2024 Level iii surg patho logy gross&microscopic exam [employer] Work Phone: Start: 06-21-2024 Prothrombin time Christina h L Maschmjigarer IMPLEMENTATION MANAGER - SHEET ROCK HANGER Work Phone: Start: 06-21-2024 End: 06-21-2024 Musc myocutaneous/fasciocutaneous flap trunk [employer] Work Phone: Start: 06-21-2024 End: 06-21-2024 CO RPR AA HERNIA 1ST 3-10 CM NCRC8/STRANGULATED [employer] Work Phone: Start: 06-21-2024 Glucose quantitative blood xcpt reagent strip [employer] Work Phone: Start: 06-21-2024 Ecg routine ecg w/le ast 12 lds trcg only w/o i&r Farideh L Maschmeier IMPLEMENTATION MANAGER - SHEET ROCK HANGER Work Phone: Start: 02-04-2024 Comprehensive metabolic panel [employer] Work Phone: Start: 02-04-2024 End: 10-25-2024 Thyrotropin [Units/volume] in Serum or Plasma Antione Cardenas DO Work Phone: Start: 01-06-2024 History of coronary artery bypass grafting Hx of CABG Antione Cardenas DO Work Phone: Start: 12-03-2023 Dental surgery servi ce (qualifier value) AVI SAUL MD Comment on above: tooth extraction and prep for dentures Start: 10-04-2023 Destructive procedure Sheryl KOWALSKI MD Comment on above: Summary: 1. Successful atrial fibrillation ablation (pulsed field ablation -- pulmonary vein isolation) 2. Successful ablation of atrial fibrillation foci (pulsed field ablation -- posterior wall ablation) 3. DC cardioversion 4. 3D mapping; ICE imaging; US groin access. Start: 09-17-2023 Echocardiography SAM CALDERON MD Comment on above: Summary: 1. Left ventricle: The cavity size is normal. Wall thickness is mildly to moderately increased. Concentric Left Ventricular Hypertrophy Systolic function is normal. The estimated ejection fraction is 55-60%. Wall motion is normal; there are no regional wall motion abnormalities. Diastolic dysfunction present but unable to assess severity. Echodensity in LVOT. Likely LVOT calcium. Differential includes mass. 2. Ventricular septum: Thickness is moderately increased. Septal motion is paradoxical. 3. Aortic valve: There is trivial regurgitation. 4. Mitral valve: The annulus is moderately calcified. The leaflets are mildly thickened. There is mild regurgitation. Echodensity in MV. No independent mobility. LIKELY MAC. Differential includes mass. 5. Left atrium: The atrium is mildly to moderately dilated. 6. Right ventricle: Systolic function is reduced. The RV systolic pressure by Doppler is 45 mm Hg. 7. Right atrium: The atrium is mildly to moderately dilated. The estimated right atrial pressure is 3 mm Hg. 8. Atrial septum: Agitated saline shows no shunt. Start: 06-18-[address] XU NIEVES MD Start: 10-26-[address] Dariel KOWALSKI MD Start: 09-29-2022 Echocardiography DELMAR MORENO MD Comment on above: 1. Left ventricle: T he cavity size is moderately increased. Wall thickness is moderately increased. Systolic function is moderately reduced. The estimated ejection fraction is 35-40%. Severe hypokinesis of the inferolateral and inferior myocardium. Diastolic dysfunction present but unable to assess severity. 2. Aortic valve: Thickening, consistent with sclerosis. There is mild, 1+ regurgitation. 3. Mitral valve: The annulus is moderately to severely calcified. There is moderate, 2+ regurgitation. 4. Left atrium: The atrium is moderately dilated. 5. Right ventricle: Systolic pressure is moderately increased. The RV systolic pressure by Doppler is 64 mm Hg. 6. Tricuspid valve: There is moderate, 2+ regurgitation. 7. Right atrium: The atrium is moderately dilated. The estimated right atrial pressure is 15 mm Hg. Start: 08-16-2022 Umbilical hernia (disorder) FRANKLYN RIVERSDULCE MARIA IMPLEMENTATION MANAGERCytheris Comment on above: Laparoscopic convert ed to open primary umbilical hernia repair with small bowel resection Start: 06-29-2022 PM Inj Spine L/S Wit h Imaging SN 1 DELMAR MORENO MD Comment on above: auto-populated from documented surgical case Start: 06-29-2022 PM Inj Spine L/S Wit h Imaging SN 2 FRANKLYN RESTREPO IMPLEMENTATION MANAGERCytheris Comment on above: auto-populated from documented surgical case Start: 06-29-2022 PM Inj Spine L/S Wit h Imaging SN 3 DELMAR MORENO MD Comment on above: auto-populated from documented surgical case Start: 06-29-2022 PM Inj Spine L/S Wit h Imaging SN 4 SAM MODI MD Comment on above: auto-populated from documented surgical case Start: 06-29-2022 PM Inj Spine L/S Wit h Imaging SN 5 AVI SAUL MD Comment on above: auto-populated from documented surgical case Start: 06-29-2022 PM Inj Spine L/S Wit h Imaging SN [address] DR XU KOWALSKI MD Comment on above: auto-populated from documented surgical case Start: 12-11-2021 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 Fifi Henry [facility] Start: 12-02-2021 End: 12-02-2021 Antibody screen [facility] 1 Work Phone: Comment on above: Order Comment: Speci men Type: BLOOD SPECIMEN Ordering Facility: [facility] Address: [address] [place], [place] [address] [id number] Performed By: #### T [id number] #### [facility] CLIA [id number] [address] [place] [address] Start: 12-02-2021 Antibody screen rbc each serum technique Nash Henry MD Work Phone: Start: 12-02-2021 Thromboplastin time partial plasma/whole blood Nash Henry MD Work Phone: Start: 06-16-2021 Cardioversion SOFIE RIVERO DO Start: 06-04-2021 CT angiography of ch est with contrast SOFIE CONDE DO Comment on above: IMPRESSION: 1. Small left and moderate right pleural effusions. 2. Postoperative changes from treatment of ascending thoracic aortic dissection. Previous dissection no longer seen. Aortic measurements given above. 3. Mild adenopathy similar to the prior exam. These findings could be reactive or hyperplastic although the precise significance is uncertain. Start: 11-21-[address] MAUREEN NEWTON Comment on above: (11/21/20) Summary: 1. Left ventricle: The cavity size is increased. Systolic function is mildly reduced. The estimated ejection fraction is 45-50%. Mild diffuse hypokinesis. Diastolic dysfunction is present. 2. Aortic valve: There is mild stenosis. There is mild regurgitation. 3. Mitral valve: The annulus is calcified. There is mild to moderate regurgitation. 4. Left atrium: The atrium is mildly dilated. 5. Right ventricle: Systolic function is reduced. The RV systolic pressure by Doppler is 54 mm Hg. 6. Right atrium: The atrium is mildly dilated. The estimated right atrial pressure is 3 mm Hg. 7. Pericardium, extracardiac: There is a right pleural effusion. Start: 11-19-2020 Aortic valve replace ment and aortoplasty DR FIFI TIWARI MD Comment on above: REPAIR ASCENDING AOR TIC DISSECTION USING HEMASHIELD 34 MM WOVEN GRAFT, INSERTION TEMPORARY PACING WIRES Start: 01-26-[address] FIFI TIWARI MD Comment on above: successful cardiover nick to normal sinus rhythm Start: 10-20-2018 Cardiovascular stres s test using pharmacologic stress agent DR FIFI TIWARI MD Comment on above: EKG portion of Nita can stress test is negative for inducible ischemia 1. Reversible defect in the inferior, inferolateral, lateral and anterolateral bhandari suggesting ischemia in this area. 2. Mildly dilated LEFT ventricle with an ejection fraction of 26%. Wall motion as above. Start: 10-18-[address] FIFI TIWARI MD Comment on above: SUMMARY: 1. Right coronary: Proximal vessel lesion: There is a 100% stenosis. Appearance of POLYETHYLENE COMBINER with small jump collaterals to mid RCA. RPDA fills via collaterals from the LAD. 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 IMPRESSIONS: 1. Single vessel coronary artery disease, predominantly involving the RCA. 2. The proximal lesion has appearance of chronic total occlusion with small jump collaterals to mid RCA. There are collaterals filling the RPDA from left anterior descending artery. 3. 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 4. Case discussed with CT surgery due to incidental finding of LAD fistula to PA. Will pursue stress test to evaluate for anterior wall ischemia possibly related to shunt from proximal LAD fistula Start: 06-15-2014 Colonoscopy Pacc 1 Work Phone: Atrial fibrillation (disorder) SAM MODI MD Comment on above: July [address] FIFI Torres MD Hernia repair DR FIFI SOTO MD History of coronary artery bypass grafting Hx of CABG Kelsie Montenegro MD Work Phone: Implantation of perm anent spinal cord stimulator DR XU KOWALSKI MD Comment on above: karlaro Plan of Treatment Date Care Activity Detail Author Start: 01-29-2026 DTaP/Tdap/Td Vaccines (2 - Td or Tdap) DTaP/Tdap/Td Vaccines (2 - Td or Tdap) [facility] Start: 01-29-2026 Urine microalbumin profile DTaP,Tdap,Td Vaccine (2 - Td or Tdap) [facility] Start: 06-26-2025 Creatinine measurement Creatinine Level [facility] Start: 06-26-2025 Diabetes: Estimated Glomerular Filtration Rate for Kidney Health Diabetes: Estimated Glomerular Filtration Rate for Kidney Health [facility] Start: 06-26-2025 Potassium measurement Potassium Level [facility] Start: 05-29-2025 Hemoglobin A1c measurement Diabetes: Hemoglobin A1C [facility] Start: 02-03-2025 Creatinine measurement Creatinine Level [facility] Start: 02-03-2025 Diabetes: Estimated Glomerular Filtration Rate for Kidney Health Diabetes: Estimated Glomerular Filtration Rate for Kidney Health [facility] [employer] Start: 02-03-2025 Hemoglobin A1c measurement Diabetes: Hemoglobin A1C [facility] [employer] Start: 02-03-2025 Potassium measurement Potassium Level [facility] [employer] Start: 02-03-2025 Thyroid stimulating hormone measurement TSH Level [facility] [employer] Start: 01-12-2025 End: 01-12-2025 Patient encounter procedure 01/12/2025 11:00 AM EDT Office Visit [facility] [address] [place] [phone] Antione Cardenas DO [address] [place] [phone] [facility] Start: 12-25-2024 Diabetes Screening Diabetes Screening [facility] Start: 12-11-2024 Influenza vaccination Influenza Vaccine (Season Ended) [facility] Start: 12-02-2024 DIABETES SCREEN DIABETES SCREEN [facility] Start: 2024 RSV Immunization for Adults (1 - 1-dose 75+ series) RSV Immunization for Adults (1 - 1-dose 75+ series) [facility] Start: 2024 RSV Vaccine (1 - 1-dose 75+ series) RSV Vaccine (1 - 1-dose 75+ series) [facility] Start: 07-14-2024 End: 07-14-2024 Patient encounter procedure 07/14/2024 11:45 AM EDT Office Visit [facility] [place] [address] [place] [address] [facility], [address] [place] [address] [facility] Start: 07-07-2024 End: 07-07-2024 Patient encounter procedure 07/07/2024 1:00 PM EDT Office Visit [facility] - [place] [address] [place] [address] [facility], [address] [place] [address] [facility] [place] Start: 06-21-2024 End: 06-21-2024 Patient encounter procedure 06/21/2024 10:30 AM EDT Office Visit [facility] Laparoscopic Surgery - [address] [place] [phone] [facility] [place] Start: 06-21-2024 End: 06-21-2024 Admission to same day surgery center 06/21/2024 7:30 AM EDT - 06/21/2024 11:30 AM EDT Surgery [facility] OR [address] [place] [address] [facility], DO [address] [place] [address] OPEN INCISIONAL HERNIA REPAIR WITH MESH [48965 (CPT )] [facility] Comment on above: OPEN INCISIONAL HERNIA REPAIR WITH MESH [56466 (CPT )] Start: 06-21-2024 End: 06-21-2024 Anesthesia consultation 06/21/2024 7:30 AM EDT Anesthesia Event [facility] [address] [place] [phone] Mil Orellana, IMPLEMENTATION MANAGER - PAINT MIXER MACHINE [address] [place] [address] [facility] Start: 06-21-2024 End: 06-21-2024 Musc myocutaneous/fasciocutane ous flap trunk FLAP PROCEDURE, MYOCUTANEOUS, TORSO Incisional hernia without obstruction or gangrene 06/21/2024 7:30 AM EDT [facility] Operating Room Start: 06-21-2024 End: 06-21-2024 REPAIR, HERNIA, INCISIONAL OR VENTRAL, OPEN, ADULT REPAIR, HERNIA, INCISIONAL OR VENTRAL, OPEN, ADULT Incisional hernia without obstruction or gangrene 06/21/2024 7:30 AM EDT [facility] Operating Room Start: 06-21-2024 Subsequent hospital visit by physician 06/21/2024 7:30 AM EDT Hospital Encounter [facility] [address] [facility] [place] [phone] [place] [id number] [facility] Start: 06-05-2024 End: 06-05-2024 Admission to same day surgery center 06/05/2024 10:30 AM EST - 06/05/2024 1:00 PM EST Surgery [facility] [address] [facility] [place] [phone] [place] [address] OPEN INCISIONAL HERNIA REPAIR WITH MESH POSSIBLE COMPONENT SEPARATION [98484 (CPT )] [facility] Comment on above: OPEN INCISIONAL HERNIA REPAIR WITH MESH POSSIBLE COMPONENT SEPARATION [91356 (CPT )] Start: 06-05-2024 End: 06-05-2024 Musc myocutaneous/fasciocutane ous flap trunk FLAP PROCEDURE, MYOCUTANEOUS, TORSO Incisional hernia without obstruction or gangrene 06/05/2024 10:30 AM EST [facility] Operating [facility] Start: 06-05-2024 End: 06-05-2024 REPAIR, HERNIA, INCISIONAL OR VENTRAL, OPEN, ADULT REPAIR, HERNIA, INCISIONAL OR VENTRAL, OPEN, ADULT Incisional hernia without obstruction or gangrene 06/05/2024 10:30 AM EST [facility] Operating Room Start: 06-05-2024 Subsequent hospital visit by physician 06/05/2024 10:30 AM EST Hospital Encounter [facility] [address] [place] [phone] [place] [address] [facility] MAIN OR Start: 05-29-2024 End: 05-29-2024 Admission to establishment 05/29/2024 11:00 AM EST Pre-Admission Testing [facility]-Admit Testing [address] [place] [id number] [facility] Pre-Admit Testing Start: 05-25-2024 End: 05-25-2025 Methicillin resistant Staphylococcus aureus (MRSA) DNA [Presence] in Nose by RIVKA with probe detection MRSA by PCR Microbiology Routine Preop testing Expected: 05/25/2024 (Approximate), Expires: 05/25/2025 [facility] Work Phone: Comment on above: Expected: 05/25/2024 (Approximate), Expi res: 05/25/2025 Start: 05-08-2024 End: 05-08-2025 Hepatic function 2000 panel - Serum or Plasma Hepatic function panel Lab Routine Low serum prealbumin Expected: 05/08/2024 (Approximate), Expires: 05/08/2025 [employer] Work Phone: Comment on above: Expected: 05/08/2024 (Approximate), Expi res: 05/08/2025 Start: 05-08-2024 End: 05-08-2025 Prealbumin [Mass/volume] in Serum or Plasma Prealbumin Lab Routine Low serum prealbumin Expected: 05/08/2024 (Approximate), Expires: 05/08/2025 [email or web address] Comment on above: Expected: 05/08/2024 (Approximate), Expi res: 05/08/2025 Start: 04-12-2024 Advance Directive Discussion Advance Directive Discussion [facility] Start: 04-12-2024 Medicare Advantage Annual Wellness Visit Medicare [facility] Annual Wellness Visit [facility] Start: 02-04-2024 End: 02-03-2025 CBC panel - Blood by Automated count CBC Lab Routine Type 2 diabetes mellitus without complication, without long-term current use of insulin (CMS/HCC) (HCC) Incisional hernia, without obstruction or gangrene Expected: 02/04/2024 (Approximate), Expires: 02/03/2025 [facility] [employer] [facility] Work Phone: Comment on above: Expected: 02/04/2024 (Approximate), Expi res: 02/03/2025 Start: 02-04-2024 End: 02-03-2025 Comprehensive metabolic 1998 panel - Serum or Plasma Comprehensive metabolic panel Lab Routine Type 2 diabetes mellitus without complication, without long-term current use of insulin (CMS/HCC) (HCC) Incisional hernia, without obstruction or gangrene Expected: 02/04/2024 (Approximate), Expires: 02/03/2025 [facility] [employer] Comment on above: Expected: 02/04/2024 (Approximate), Expi res: 02/03/2025 Start: 02-04-2024 End: 02-03-2025 Hemoglobin A1c measurement Hemoglobin A1c Lab Routine Type 2 diabetes mellitus without complication, without long-term current use of insulin (CMS/HCC) (HCC) Incisional hernia, without obstruction or gangrene Expected: 02/04/2024 (Approximate), Expires: 02/03/2025 [facility] Comment on above: Expected: 02/04/2024 (Approximate), Expi res: 02/03/2025 Start: 02-04-2024 End: 02-03-2025 Prealbumin [Mass/volume] in Serum or Plasma Prealbumin Lab Routine Type 2 diabetes mellitus without complication, without long-term current use of insulin (CMS/HCC) (HCC) Incisional hernia, without obstruction or gangrene Expected: 02/04/2024 (Approximate), Expires: 02/03/2025 [facility] [employer] Comment on above: Expected: 02/04/2024 (Approximate), Expi res: 02/03/2025 Start: 02-04-2024 End: 02-03-2025 Thyrotropin [Units/volume] in Serum or Plasma TSH Lab Routine Type 2 diabetes mellitus without complication, without long-term current use of insulin (CMS/HCC) (HCC) Incisional hernia, without obstruction or gangrene Expected: 02/04/2024 (Approximate), Expires: 02/03/2025 [facility] Comment on above: Expected: 02/04/2024 (Approximate), Expi res: 02/03/2025 Start: 12-12-2023 COVID-19 Vaccine () COVID-19 Vaccine () [facility] Start: 12-12-2023 COVID-19 Vaccine () COVID-19 Vaccine () [facility] Start: 12-12-2023 Influenza vaccination Influenza Vaccine (#1) [facility] Start: 04-12-2023 Medicare Advantage Annual Wellness Visit Medicare Advantage Annual Wellness Visit [facility] Start: 12-02-2022 Hemoglobin A1c measurement Diabetes: Hemoglobin A1C [facility] Start: 12-11-2021 Influenza vaccination INFLUENZA (#1) [facility] Start: 12-02-2021 End: 02-01-2022 STAPH AUREUS PCR [facility] Work Phone: Comment on above: Expected: 12/02/2021, Expires: Start: 04-12-2021 ADVANCE DIRECTIVE DISCUSSION ADVANCE DIRECTIVE DISCUSSION [facility] Start: 01-02-2021 COVID-19 VACCINE (3 - Booster for Moderna series) COVID-19 VACCINE (3 - Booster for Moderna series) [facility] Start: 06-15-2017 Colonoscopy COLONOSCOPY [facility] Start: 06-15-2017 COLORECTAL CANCER SCREENING COLORECTAL CANCER SCREENING [facility] Start: 06-15-2017 Screening for malignant neoplasm of colon [facility] Start: 2014 PNEUMOCOCCAL: 65+ (1 - PCV) PNEUMOCOCCAL: 65+ (1 - PCV) [facility] Start: 2009 Hepatitis B Vaccines (1 of 3 - Risk 3-dose series) Hepatitis B Vaccines (1 of 3 - Risk 3-dose series) [facility] Start: 2009 RSV Immunization for Adults (1 - Risk 60-74 years 1-dose series) RSV Immunization for Adults (1 - Risk 60-74 years 1-dose series) [facility] Start: 07-18-1999 SHINGRIX VACCINE (1 of 2) SHINGRIX VACCINE (1 of 2) [facility] Start: 07-18-1999 Zoster Vaccines (1 of 2) Zoster Vaccines (1 of 2) [facility] Start: 1994 COLOGUARD (FIT-DNA) COLOGUARD (FIT-DNA) [facility] Start: [address] COLONOGRAPHY [facility] Start: 1994 FECAL OCCULT BLOOD FECAL OCCULT BLOOD [facility] Start: 1994 Screening for malignant neoplasm of colon [facility] Start: 1994 SIGMOIDOSCOPY SIGMOIDOSCOPY [facility] Start: 1984 Lipid panel Lipid Screening [facility] Start: 1984 LIPID SCREEN LIPID SCREEN [facility] Start: 1968 Hepatitis A Vaccines (1 of 2 - Risk 2-dose series) Hepatitis A Vaccines (1 of 2 - Risk 2-dose series) [facility] Start: 1968 Urine microalbumin profile DTAP,TDAP,TD (1 - Tdap) [facility] Start: 07-18-1967 Anxiety Screening Anxiety Screening [facility] Start: 07-18-1967 Depression Screening Depression Screening [facility] Start: 07-18-1967 Diabetes: Estimated Glomerular Filtration Rate for Kidney Health Diabetes: Estimated Glomerular Filtration Rate for Kidney Health [facility] Start: 07-18-1967 Diabetes: Urine Albumin-Creatinine Ratio for Kidney Health Diabetes: Urine Albumin-Creatinine Ratio for Kidney Health [facility] Start: 07-18-1967 HEPATITIS C SCREENING HEPATITIS C SCREENING [facility] Start: 07-18-1967 Hepatitis C screening Hepatitis C Screening [facility] Start: 1961 Adult depression screening assessment DEPRESSION SCREENING [facility] Start: 07-18-1959 Diabetic foot examination Diabetes: Foot Exam [facility] Start: 07-18-1959 Glaucoma screening Diabetes: Retinopathy Screening [facility] Start: 07-18-1959 Preventive dental service Diabetes: Dental Exam [facility] Start: 1949 Creatinine measurement Creatinine Level [facility] Start: 1949 Echocardiography Echocardiogram [facility] Start: 1949 Lipid panel Lipid Panel [facility] Start: 1949 Potassium measurement Potassium Level [facility] Start: 1949 Screening for malignant neoplasm of colon [facility] Start: 1949 Thyroid stimulating hormone measurement TSH Level [facility] Immunizations Immunization Date Immunization Notes Care Provider Александр edmonds 11-27-2020 SARS-CoV-2, Unspecified Loga n Mellert DO Work Phone: [facility] 10-23-2020 SARS-CoV-2, Unspecified Loga n Mellert DO Work Phone: [facility] 08-02-2020 SARS-CoV-2 (COVID-19 ) mRNA-[address] XU KOWALSKI MD [facility] 07-05-2020 SARS-CoV-2 (COVID-19 ) mRNA-[address] XU KOWASLKI MD [facility] 02-08-2019 pneumococcal polysaccharide vaccine, [address] XU KOWALSKI MD [facility] 06-03-2017 pneumococcal conjuga te vaccine, [address] XU KOWALSKI MD [facility] 01-30-2016 tetanus toxoid, redu ed diphtheria toxoid, and acellular pertussis vaccine, adsorbed DR XU KOWALSKI MD [facility] Payers Date Payer Category Payer Self-pay [id number] 2023 Medicare HMO ANTHEM DUAL KRISTINAA ANTONIOGE [id number] 2022 Private Health Insurance 1ae [id number] 2021 Unknown [id number] 2021 Unknown [id number]. 1.13.159. [id number] 1949 Unknown [id number] 2.16840.1.706058.3.579. 2 1949 Unknown [id number] 2.840.1.695843.3.579. 2 1949 Unknown [id number] 2.840.1.983437.3.579. 2 1949 Unknown [id number] 2.840.1.582688.3.579. 2 1949 Unknown [id number] 2.16840.1.541779.3.579. 2 1949 Unknown [id number] 2.16840.1.859969.3.579. 2. 1949 Unknown [id number] 2.16840.1.056836.3.579. 2 1949 Unknown [id number] 2.16840.1.399672.3.579. 2. 1949 Unknown [id number] 2.16840.1.619798.3.579. 2 1949 Unknown [id number] 2.16.840.1.030748.3.579. 2.62 1949 Unknown [id number] 2.16840.1.881610.3.579. 2.627 1949 Unknown [id number] 2.16.840.1.101940.3.579. 2.62 1949 Unknown [id number] 2.16.840.1.538530.3.579. 2.62 1949 Unknown [id number] 2.16.840.1.348310.3.579. 2. 1949 Unknown [id number] 2.840.1.964221.3.579. 2. 1949 Unknown [id number] 2.840.1.551352.3.579. 2. 1949 Unknown [id number] 2.840.1.319459.3.579. 2. 1949 Unknown [id number] 2.840.1.481732.3.579. 2. 1949 Unknown [id number] 2.840.1.899687.3.579. 2. 1949 Unknown [id number] 2.840.1.016207.3.579. 2. 1949 Unknown [id number] 2.840.1.880158.3.579. 2. 1949 Unknown [id number] 2.840.1.551461.3.579. 2.627 Medicare MEDICARE PART A B [id number] Unknown [id number] Unknown [id number] 2.840.1.494067.3.579. 2.462 Unknown [id number] 2.16840.1.295116.3.579. 2.462 Unknown [id number] 2.840.1.093990.3.579. 2.462 Social History Date Type Detail Facility Start: 05-19-2019 End: 03-08-2024 Never smoked tobacco (finding) [facility] Start: 1950 Sex Assigned At Male A [facility] Start: 11-28-2021 End: 05-29-2024 Tobacco use and exposure Smokeless tobacco non-user [facility] Start: 12-02-2021 End: 07-14-2024 Alcohol intake Ex-drinker (finding) [facility] Start: 1950 Sex Assigned At Not on file C [facility] Start: 11-22-2021 End: 12-17-2021 Exposure to SARS-CoV-2 (event) Not sure [facility] Start: 08-09-2020 Tobacco smoking stat us [facility] Unknown if ever smoked [facility] Start: 08-09-2020 Non-smoker [facility] Start: 09-16-2023 End: 02-04-2024 Tobacco smoking status NHIS Ex-smoker [facility] Start: 04-12-1969 End: 04-12-1974 History of tobacco use Current smoker [facility] Start: 04-12-1969 End: 04-12-1974 History of tobacco use Cigarette Smoker [facility] Start: 02-04-2024 Alcoholic beverage intake Current drinker of alcohol (finding) [facility] Start: 02-04-2024 End: 06-26-2024 Alcoholic beverage intake [facility] Start: 02-04-2024 End: 06-26-2024 Tobacco use panel [facility] Start: 02-04-2024 Alcohol Comment OCC TWICE A MONTH [facility] Start: 03-06-2019 End: 01-06-2024 Sex Male (finding) [facility] National Score (1-10 0), lower number is lower risk 53 [facility] Sexual Orientation [place] [facility]vinpiadam [facility] Has the [facility], [employer], oil, or water [employer] threatened to shut off services in your home in past 12Mo No [facility] (I/We) worried anil er (my/our) food would run out before (I/we) got money to buy more. Never true [email or web address] Medical Equipment Procedure Code Equipment Code Equipment Origin al Text Equipment Identifier Dates Unknown Unknown 11/10/22 Unknown Unknown FDA Start: 11-10-2022 Unknown Unknown 11/10/22 Unknown Unknown FDA Start: 11-10-2022 Unknown Unknown 11/10/22 Unknown Unknown FDA Start: 11-10-2022 Nyo-Fb-S-Kind Im plant - [id number], Non Locking Screw 4.75mm, 15mm Length, 3.5 Mm Hex [id number] Start: 12-24-2021 Scv-Iz-E-Kind Im plant - [id number], Mini Humeral Stem 15mm, 83mm Long [id number] Start: 12-24-2021 Oos-Jp-I-Kind Im plant - [id number], Prolong Poly Bearing Standard 36mm [id number] Start: 12-24-2021 Sqr-Ug-L-Kind Im plant - [id number], Mini Humeral Tray Standard Thickness +0 Taper Offset 40mm [id number] Start: 12-24-2021 Component Comprehensive Versa-Dial 36mm Standard Glenoid Glenosphere - [id number] Start: 12-24-2021 Baseplate Comprehensive 25mm Mini Glenoid Taper Adapter Reverse Shoulder - [id number] Start: 12-24-2021 Screw Comprehens genna 3.5mm 25mm Bone Central Hexagon Outpatient Pharmacy Manager 6.5mm Shoulder - [id number] Start: 12-24-2021 Screw Comprehens genna 3.5mm Hexagon 30mm Bone Fix Angle Lock Reverse 4.75mm - [id number] Start: 12-24-2021 Screw Comprehens genna 4.75mm 3.5mm Titanium 15mm Bone Fix Angle Lock - [id number] Start: 12-24-2021 Screw Comprehens genna 3.5mm Hexagon 25mm Bone Fix Angle Lock Reverse 4.75mm - [id number] Start: 12-24-2021 Unknown Unknown 11/10/22 Unknown Unknown FDA Start: 11-10-2022 Unknown Unknown 11/10/22 Unknown Unknown FDA Start: 11-10-2022 Mesh Surg Syneco r Pre [id number] - [id number] - [id number] Start: 06-21-2024 Unknown Unknown 11/10/22 Unknown Unknown FDA Start: 11-10-2022 Functional Status Date Assessment Result Facility 12-21-2023 [facility]23 Functional Status ID band on, Allergy Band on, Call device within reach, Bed in low position, Wheels locked, Upper/Half-Length side-rails up, Visitor at bedside, Safety level maintained [facility] 10-05-2023 Functional Status Repositions self [facility] 10-05-2023 Functional Status Room located n ear nursing station, Room check performed [facility] 10-04-2023 Functional Status [facility] 10-04-2023 Functional Status [facility] 10-04-2023 Functional Status Patient Identi fied Identification band, Verbal [facility] 10-04-2023 Functional Status Maintained, More than 8 hours [facility] 09-17-2023 Functional Status Nurse Safety C twin q2hrs Performed Other: 7-4p [facility] 09-17-2023 Functional Status Single level home [facility] 09-17-20[facility] Functional Status Identified as high risk, Fall ID band on, Room located near nursing station, Door open, Non-Slip footwear [facility] 09-17-2023 Functional Status Starla Garcia [facility] 09-17-2023 Functional Status Starla [facility] 09-16-2023 Functional Status Up to Chair Remains up in chair [facility] 09-16-2023 Functional Status Starla [facility] 09-16-2023 [facility] 09[facility]16-[facility] Functional Status Identified as high risk, Fall ID band on, Non-Slip footwear, Room check performed [facility] 06-18-2023 Functional Status Bathroom light on, Non-Slip footwear, Room check performed [facility] 11-30-2022 [facility] 11-30-2022 [facility]aintained [facility] 11-25-2022 Functional Status Sensory Deficits None A [facility] 10-26-2022 Functional [facility] 10-26-2022 [facility] 09-14-2022 Functional Status Objective: Observation: Rounded shoulders with flexed posture. Partially corrected with cues Sensation: grossly intact and symmetrical light touch bilat LE's Cardiovascular screen: O2 sat: 96%, HR: 82 BP: 130/80 Gait: Antalgic flexed trunk with rollator walker 5 m walk test 9.11 sec 0.55 m/sec [facility] 09-05-[address] [facility] 09-05-2022 Functional Status [facility] 09-04-2022 Functional Status Awake, Up to bathroom, Up with assistance [facility] 09-04-[address] [facility] 09-04-2022 [facility] 09-04-2022 Functional Status Lunch Percent 75 [facility] 09-04-2022 Functional Status [facility] 09-04-2022 Functional Status Breakfast Percent 95 [facility] 09-04-2022 Functional Status Demonstrates C orrect Call Light Use Yes [facility] 09-03-2022 Functional Status preventative foam dress ing [facility] 09-03-2022 [facility] 09-03-[facility]22 Functional Status Dinner Percent 100 [facility] 09-03-2022 Functional Status [facility] 09-03-2022 Functional Status Independent [facility] Functional Status Starla [place] 09-03-2022 Functional Status [facility] Functional Status Starla [facility] [place] 09-02-2022 Functional Status Starla [place] 09-02-2022 Functional Status [facility]20[facility] Functional Status Supervised [facility]20[facility] Functional Status [facility]-02-2022 Functional Status [facility]2022 Functional Status [facility]-02-2022 Functional Status [facility]-2022 Functional Status [facility] Functional Status [facility]-31-2022 Functional Status [facility] 08-27-2022 Functional Status Transfer Toilet Min A A [facility] 08-27-2022 Functional Status Starla Garcia [facility] 08-26-2022 Functional Status Min A 10 Starlarita Garcia [facility] 08-26-2022 Functional Status Assistive Jayne ce Gait belt, [facility] 08-25-2022 Functional Status Starla Garcia [facility] 08-25-2022 Functional Status Single level home [facility] 08-25-2022 Functional Status Starla Garcia [facility] 08-24-2022 Functional Status pt reported th at he is recently . pt sees pain management doctor that manages his chronic back pain. [facility] 08-24-2022 Functional Status Starla Garcia [facility] 08-24-2022 Functional Status Room check performed [facility] 08-24-2022 [facility] Functional Status bilateral knee high [facility] 08-24-2022 Functional Status [facility] Functional Status [facility] 08-23-2022 [facility] Functional Status Starla [facility] 08-23-2022 Functional Status Min A 8 [facility] 08-22-2022 [facility] Functional Status Feeding Assistance Inde pendent [facility] 08-22-2022 [facility] Functional Status Mod A 9 [facility] 08-22-2022 [facility] 08-20-20[facility] Functional Status Max A 11 [facility] 08-20-2022 Functional Status Assistive Equi pment abdominal binder on [facility] 08-19-2022 [facility]-19-[facility]22 Functional Status [facility] 08-19-2022 Functional Status [facility] 08-19-2022 [facility]-18[facility] 08-18-[facility]22 Functional Status pt reported th at he is recently [facility] 08-17-2022 Functional Status Single level home [facility] 08-17-2022 Functional Status [facility] 08-16-2022 Functional Status Patient Identi fied Identification band [facility] 06-29-2022 Functional Status Awake, Up to chair [facility] 12-05-2021 Functional Status ID band on, Allergy Band on, Call device within reach, Bed in low position, Wheels locked [facility] Mental Status Date Assessment Result Facility 12-21-2023 Mental Status Orientation Oriented x 4 [facility] 12-21-2023 [facility] [place] [facility] 10[facility] 10-04-[facility]23 Mental Status Orientation Asse ssment Oriented x 4 [facility] 09-17-2023 Mental Status Oriented x 4 [facility] 09-16-2023 Mental Status [facility] 09-16-2023 Mental Status [facility] 08-30-2023 Mental Status Orientation Oriented x 4 [facility] 08-30-2023 [facility] 06-18-2023 Mental Status Oriented x [facility] 06-18-2023 [facility] 11-30-2022 Mental Status Oriented x 4 [facility] 10-26-2022 Mental Status Orientation Oriented x 4 [facility] 10-26-2022 Mental Status [facility] 09-05-2022 Mental Status Orientation Asse ssment Oriented x 4 [facility] 09-05-2022 Mental Status Oriented x 4 [facility] 09-04-2022 Mental Status [facility] 09-04-2022 Mental Status [facility] 08-24-2022 Mental Status Orientation Asse ssment Oriented x 4 [facility] 08-24-2022 Mental Status Orientation Oriented x 4 [facility] 08-23-2022 [facility] 08-23-[facility]22 [facility] 08-23-2022 [facility] 06-29-2022 Mental Status Oriented x 4 [facility] 12-05-2021 Mental Status Oriented x 4 [facility] Clinical Notes 04-30-2021 to 11-02-2024 Telephone Encounter - Charity Castillo - 07/27/2024 9:44 AM EDTTelephone Encounter - Charity Castillo - 07/27/2024 9:44 AM EDTTelephone Encounter - Earline CLAUDETTE Lew - 07/27/2024 7:58 AM EDT Note Date & Type Note Facility 11-02-2024 Hospital Discharg e instructions Patient Education 11/02/2024 11:03:18 Back Exercises, Lumbar Exercises to Strengthen Your Lower Back Strong lower back and abdominal muscles work together to support your spine. The exercises below will help strengthen the lower back. It is important that you begin exercising slowly and increase levels gradually. Always begin any exercise program with stretching. If you feel pain while doing any of these exercises, stop and talk to your doctor about a more specific exercise program that better suits your condition. Low back stretch The point of stretching is to make you more flexible and increase your range of motion. Stretch only as much as you are able. Stretch slowly. Do not push your stretch to the limit. If at any point you feel pain while stretching, this is your (temporary) limit. Lie on your back with your knees bent and both feet on the ground. Slowly raise your left knee to your chest as you flatten your lower back against the floor. Hold for 5 seconds. Relax and repeat the exercise with your right knee. Do 10 of these exercises for each leg. Repeat hugging both knees to your chest at the same time. Building lower back strength Start your exercise routine with 10 to 30 minutes a day, 1 to 3 times a day. Initial exercises Lying on your back: 1. Ankle pumps: Move your foot up and down, towards your head, and then away. Repeat 10 times with each foot. 2. Heel slides: Slowly bend your knee, drawing the heel of your foot towards you. Then slide your heel/foot from you, straightening your knee. Do not lift your foot off the floor (this is not a leg lift). 3. Abdominal contraction: Bend your knees and put your hands on your stomach. Tighten your stomach muscles. Hold for 5 seconds, then relax. Repeat 10 times. 4. Straight leg raise: Bend one leg at the knee and keep the other leg straight. Tighten your stomach muscles. Slowly lift your straight leg 6 to 12 inches off the floor and hold for up to 5 seconds. Repeat 10 times on each side. Standin. Wall squats: Stand with your back against the wall. Move your feet about 12 inches away from the wall. Tighten your stomach muscles, and slowly bend your knees until they are at about a 45 degree angle. Do not go down too far. Hold about 5 seconds. Then slowly return to your starting position. Repeat 10 times. 2. Heel raises: Stand facing the wall. Slowly raise the heels of your feet up and down, while keeping your toes on the floor. If you have trouble balancing, you can touch the wall with your hands. Repeat 10 times. More advanced exercises When you feel comfortable enough, try these exercises. 1. Kneeling lumbar extension: Begin on your hands and knees. At the same time, raise and straighten your right arm and left leg until they are parallel to the ground. Hold for 2 seconds and come back slowly to a starting position. Repeat with left arm and right leg, alternating 10 times. 2. Prone lumbar extension: Lie face down, arms extended overhead, palms on the floor. At the same time, raise your right arm and left leg as high as comfortably possible. Hold for 10 seconds and slowly return to start. Repeat with left arm and right leg, alternating 10 times. Gradually build up to 20 times. (Advanced: Repeat this exercise raising both arms and both legs a few inches off the floor at the same time. Hold for 5 seconds and release.) 3. Pelvic tilt: Lie on the floor on your back with your knees bent at 90 degrees. Your feet should be flat on the floor. Inhale, exhale, then slowly contract your abdominal muscles bringing your navel toward your spine. Let your pelvis rock back until your lower back is flat on the floor. Hold for 10 seconds while breathing smoothly. 4. Abdominal crunch: Perform a pelvic tilt (above) flattening your lower back against the floor. Holding the tension in your abdominal muscles, take another breath and raise your shoulder blades off the ground (this is not a full sit-up). Keep your head in line with your body (don t bend your neck forward). Hold for 2 seconds, then slowly lower. 5515-6489 [employer]. [address] [place] [address]. All rights reserved. This information is not intended as a substitute for professional medical care. Always follow your healthcare professional's instructions. 11/02/2024 11:03:05 Self-Care for Low Back Pain Self-Care for Low Back Pain Most people have low back pain now and then. In many cases, it isn t serious and self-care can help. Sometimes low back pain can be a sign of a bigger problem. Call your healthcare provider if your pain returns often or gets worse over time. For the long-term care of your back, get regular exercise, lose any excess weight and learn good posture. Take a short rest Lying down during the day may be helpful for short periods of time if severe pain increases with sitting or standing. Long-term bed rest could be damaging. Reduce pain and swelling Cold reduces swelling. Both cold and heat can reduce pain. Protect your skin by placing a towel between your body and the ice or heat source. For the first few days, apply an ice pack for 15 to 20 minutes, several times a day. To make a cold pack, put ice cubes in a plastic bag that seals at the top. After the first few days, try heat for 15 minutes at a time to ease pain. Never sleep on a heating pad. Zzqw-pyj-quiuyyi medicine can help control pain and swelling. Try aspirin or a non-steroidal anti-inflammatory medicine (NSAID) such as ibuprofen. Exercise Exercise can help your back heal. It also helps your back get stronger and more flexible, preventing any reinjury. Ask your healthcare provider about specific exercises for your back. Use good posture to avoid reinjury When moving, bend at the hips and knees. Don t bend at the waist or twist around. When lifting, keep the object close to your body. Lift heavy items using your legs, not your back. Don t try to lift more than you can handle. When sitting, keep your lower back supported. Use a rolled-up towel as needed. Seek medical care right away if: You can't stand or walk. You have a temperature over 100.4 F (38.0 C) You have frequent, painful, or bloody urination. You have severe abdominal pain. You have a sharp, stabbing pain. Your pain is constant. You have pain, tingling, or numbness in your leg. You feel pain in a new area of your back. You notice that the pain isn t decreasing after more than a week. 9021-9002 [employer]. [address] [place] [address], [place] [address]. All rights reserved. This information is not intended as a substitute for professional medical care. Always follow your healthcare professional's instructions. Follow Up Care 11/02/2024 09:25:02 With:HODA GRAYSON MD Address: [facility] [address] [place] [address] [phone] When:3-7 days [facility]24 Note Discharge Instructions Thank you for allowing [facility] to assist you with your healthcare needs. The following is important discharge information regarding your hospital visit. Diagnosis from Today's Visit Acute on chronic low back pain What to Do Next Instructions from Your Care Team You were evaluated for low back pain and given morphine for pain control, which led to significant improvement in your back pain. Please continue to follow with pain management, PCP and neurosurgery for further management of your back pain. Please return to the nearest emergency room if you sustain falls, shortness of breath or chest pain. No qualifying data available. Post Acute Orders No qualifying data available. You Need to Schedule the Following Appointments Follow Up with HODA GRAYSON MD When:Within 3-7 days Where:[facility] [address] [place] [address] [phone] Allergies penicillin Skin breakdown Medications Please ask your primary doctor or pharmacist before taking any other medication not listed, including over the counter drugs, herbal medications, vitamins and or supplements as they may interact with your home medications. What How Much When Why Instructions Last Dose Unchanged ascorbic acid (Vitamin C 500 mg oral tablet) 1 tab(s) by mouth Once a day Unchanged atorvastatin (atorvastatin 40 mg oral tablet) 1 tab(s) by mouth Once a day Unchanged cholecalciferol (Vitamin D3 25 mcg (1000 intl units) oral capsule) 1 cap by mouth Every day Unchanged dapagliflozin (Farxiga 10 mg oral tablet) 1 tab(s) by mouth Once a day Unchanged metoprolol (metoprolol succinate 25 mg oral TABLET extended release) 1 tab(s) by mouth Once a day Unchanged oxyCODONE (oxyCODONE 5 mg oral tablet ( IMMEDIATE release )) 1 tab(s) by mouth Every 8 hours as needed for as needed for pain Lumbar radiculitis Spinal stenosis, lumbar Duration: 30 Days Unchanged potassium chloride (Potassium Chloride (Eqv-K-Tab) 10 mEq oral tablet, extended release) 1 tab(s) by mouth Once a day Unchanged rivaroxaban (Xarelto 20 mg oral tablet) 1 tab(s) by mouth Once a day (in the evening) Unchanged sacubitril-valsartan (Entresto 24 mg-26 mg oral tablet) 1 tab(s) by mouth Two (2) times a day Unchanged tiZANidine (tiZANidine 4 mg oral capsule) 1 cap by mouth Three (3) times a day as needed for Pain Please take this list to your next doctor s visit. Bring all medications you take, including over the counter medications, herbals and other supplements with you to your doctor s visit. Patients and families are reminded to discard old lists and to update any records with all medication providers or retail pharmacies. Education Materials Exercises to Strengthen Your Lower Back Strong lower back and abdominal muscles work together to support your spine. The exercises below will help strengthen the lower back. It is important that you begin exercising slowly and increase levels gradually. Always begin any exercise program with stretching. If you feel pain while doing any of these exercises, stop and talk to your doctor about a more specific exercise program that better suits your condition. Low back stretch The point of stretching is to make you more flexible and increase your range of motion. Stretch only as much as you are able. Stretch slowly. Do not push your stretch to the limit. If at any point you feel pain while stretching, this is your (temporary) limit. Lie on your back with your knees bent and both feet on the ground. Slowly raise your left knee to your chest as you flatten your lower back against the floor. Hold for 5 seconds. Relax and repeat the exercise with your right knee. Do 10 of these exercises for each leg. Repeat hugging both knees to your chest at the same time. Building lower back strength Start your exercise routine with 10 to 30 minutes a day, 1 to 3 times a day. Initial exercises Lying on your back: 1. Ankle pumps: Move your foot up and down, towards your head, and then away. Repeat 10 times with each foot. 2. Heel slides: Slowly bend your knee, drawing the heel of your foot towards you. Then slide your heel/foot from you, straightening your knee. Do not lift your foot off the floor (this is not a leg lift). 3. Abdominal contraction: Bend your knees and put your hands on your stomach. Tighten your stomach muscles. Hold for 5 seconds, then relax. Repeat 10 times. 4. Straight leg raise: Bend one leg at the knee and keep the other leg straight. Tighten your stomach muscles. Slowly lift your straight leg 6 to 12 inches off the floor and hold for up to 5 seconds. Repeat 10 times on each side. Standin. Wall squats: Stand with your back against the wall. Move your feet about 12 inches away from the wall. Tighten your stomach muscles, and slowly bend your knees until they are at about a 45 degree angle. Do not go down too far. Hold about 5 seconds. Then slowly return to your starting position. Repeat 10 times. 2. Heel raises: Stand facing the wall. Slowly raise the heels of your feet up and down, while keeping your toes on the floor. If you have trouble balancing, you can touch the wall with your hands. Repeat 10 times. More advanced exercises When you feel comfortable enough, try these exercises. 1. Kneeling lumbar extension: Begin on your hands and knees. At the same time, raise and straighten your right arm and left leg until they are parallel to the ground. Hold for 2 seconds and come back slowly to a starting position. Repeat with left arm and right leg, alternating 10 times. 2. Prone lumbar extension: Lie face down, arms extended overhead, palms on the floor. At the same time, raise your right arm and left leg as high as comfortably possible. Hold for 10 seconds and slowly return to start. Repeat with left arm and right leg, alternating 10 times. Gradually build up to 20 times. (Advanced: Repeat this exercise raising both arms and both legs a few inches off the floor at the same time. Hold for 5 seconds and release.) 3. Pelvic tilt: Lie on the floor on your back with your knees bent at 90 degrees. Your feet should be flat on the floor. Inhale, exhale, then slowly contract your abdominal muscles bringing your navel toward your spine. Let your pelvis rock back until your lower back is flat on the floor. Hold for 10 seconds while breathing smoothly. 4. Abdominal crunch: Perform a pelvic tilt (above) flattening your lower back against the floor. Holding the tension in your abdominal muscles, take another breath and raise your shoulder blades off the ground (this is not a full sit-up). Keep your head in line with your body (don t bend your neck forward). Hold for 2 seconds, then slowly lower. [id number] [employer]. [address] [place] [address], [place] [address]. All rights reserved. This information is not intended as a substitute for professional medical care. Always follow your healthcare professional's instructions. Self-Care for Low Back Pain Most people have low back pain now and then. In many cases, it isn t serious and self-care can help. Sometimes low back pain can be a sign of a bigger problem. Call your healthcare provider if your pain returns often or gets worse over time. For the long-term care of your back, get regular exercise, lose any excess weight and learn good posture. Take a short rest Lying down during the day may be helpful for short periods of time if severe pain increases with sitting or standing. Long-term bed rest could be damaging. Reduce pain and swelling Cold reduces swelling. Both cold and heat can reduce pain. Protect your skin by placing a towel between your body and the ice or heat source. For the first few days, apply an ice pack for 15 to 20 minutes, several times a day. To make a cold pack, put ice cubes in a plastic bag that seals at the top. After the first few days, try heat for 15 minutes at a time to ease pain. Never sleep on a heating pad. Ixye-gop-luawilb medicine can help control pain and swelling. Try aspirin or a non-steroidal anti-inflammatory medicine (NSAID) such as ibuprofen. Exercise Exercise can help your back heal. It also helps your back get stronger and more flexible, preventing any reinjury. Ask your healthcare provider about specific exercises for your back. Use good posture to avoid reinjury When moving, bend at the hips and knees. Don t bend at the waist or twist around. When lifting, keep the object close to your body. Lift heavy items using your legs, not your back. Don t try to lift more than you can handle. When sitting, keep your lower back supported. Use a rolled-up towel as needed. Seek medical care right away if: You can't stand or walk. You have a temperature over 100.4 F (38.0 C) You have frequent, painful, or bloody urination. You have severe abdominal pain. You have a sharp, stabbing pain. Your pain is constant. You have pain, tingling, or numbness in your leg. You feel pain in a new area of your back. You notice that the pain isn t decreasing after more than a week. [id number] [employer]. [address] [place] [address]. All rights reserved. This information is not intended as a substitute for professional medical care. Always follow your healthcare professional's instructions. Additional Information VACCINATE! IT SAVES LIVES! Members of the community who have not yet received the COVID-19 vaccine and would like to receive it can visit one of [facility] vaccine clinics. There are many vaccine clinic locations within the [facility]. For locations and available times, please visit [email or web address] [email or web address] It is important to note that some COVID mobile vaccine clinics are held outdoors and may be canceled in rainy or stormy conditions. To learn more about pediatric vaccinations (ages 5-11), we invite you to visit the [facility] webpage. https://www.[email or web address].org/p ages/0412-Uanxe-Pfceqvlzayb-Freq scwicc-Hbddo-Cnlnsoxhe.html To learn more about the COVID-19 vaccine, we invite you to visit the CDC website for a list of frequently asked questions. https://www.cdc.gov/coronavirus/ 2019-ncov/vaccines/faq.html [employer] Patient Portal Access Instructions: Stay connected with your healthcare team and access your personal medical information anytime with the [employer] Patient Portal. If you would like a full copy of your medical records please contact the [facility] Medical Records Department Wednesday through Wednesday between 8a.m. and 4:30p.m. Please follow the directions below to access the portal: 1.Access the email account you provided upon registration to the hospital.2.Look for an invitation email from [facility].3.Open the email and access the invitation link: Accept Invitation to [facility]4.Fill in the required crockett to create your account. Sign into www.[employer] with your username and password that you created in the above steps to stay up to date. You can then view a summary of results, a summary of your visits, and the ability to download your summaries to your computer or send the information securely to a physician. Remember that your healthcare information is confidential, so carefully consider who you will allow to register on the [employer] Patient Portal for access to your information. You can also access the [employer] Patient Portal on the [employer] karie. Simply click on Health Records under Health Data and then click on the [employer] logo. HOW TO SAFELY DISPOSE OF PRESCRIPTION MEDICATIONS Please use one of the following methods to safely dispose of your unused medications. 1.Use a drug disposal kit: the drug disposal pouch allows you to safely discard your old and unused drugs. Ask your nurse to give you one when you are discharged.2.Visit a local take-back location: Many local pharmacies and police departments have programs that collect old and unwanted prescription drugs. Call your local pharmacy or go to http://Mapflow.Meddik/9C5Tn4n to find one close to you.3.Make use of household items: Use cat litter or old coffee grounds to dispose medications if other options are not available. Mix your drugs with these household products, seal them in an airtight container and throw it into the garbage. Call [facility]: [phone] to be sure your drugs can be disposed of in this way. Some medicines may require a different approach.4.Never flush your medications down the toilet. IF YOU HAVE BEEN PRESCRIBED AN OPIOIDS FOR PAIN If you have been prescribed an opioid (such as hydrocodone, oxycodone or morphine), it is critical to understand the possible side effects and risks of opioid pain medications. Even when taken as directed, opioids can have several side effects including: Tolerance, meaning you might need to take more of a medication for the same pain relief. Nausea, vomiting and/or constipation. Sleepiness, dizziness, dry mouth, confusion, depression or itching. Physical dependence, meaning you have withdrawal symptoms when a medication is stopped ? this can develop within a few days. KNOW YOUR RESPONSIBILITIES It is important to know exactly how much and how often to take the opioid pain medications you are prescribed. Never take opioids in higher amounts or more often than prescribed. Do not combine opioids with alcohol or other drugs that cause drowsiness, such as benzodiazepines, also known as benzos, including diazepam and alprazolam, muscle relaxants or sleep aids. Never sell or share prescription opioids. This is illegal. Store opioids in a secure place and out of reach of others (including children, family, friends and visitors). The last page(s) of this document has been signed and retained as a CHART COPY Signatures Patient Education Materials Back Exercises, Lumbar Self-Care for Low Back Pain Medication Leaflets My discharge plan and instructions have been reviewed and explained to me and I,JACKY ELLIS understand my current condition and have read and understand these discharge instructions. I have received a written copy of the plan/instructions. If I have questions, I am aware that I should contact my doctor. 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 I did leave below message. [facility] 07-27-2024 Miscellaneous Notes Called and chasidy Olvera's VM stating it was a confidential VM. I did leave below message. Ok to be discontinued from home care from out standpoint, however they need to reach out to PCP for BP concerns. Thanks Name of caller: May Contact phone number: [phone] Relationship to Patient: [facility] Provider: Dr Cardenas Practice: [facility] Chief Complaint/Reason for Call: Caller saw patient today for a visit and his diastolic was a little elevated (144/98) -- he is requesting to be released from home care - his incision is healing with no issues. Phone number verified. Best time of day caller can be reached: AM Patient advised that office/PCP has 24-48 business hours to return their call: No documented in this encounter [facility] 07-27-2024 Telephone encounter Note Ok to be discontinued from home care from out standpoint, however they need to reach out to PCP for BP concerns. Thanks [facility] 07-26-2024 Telephone encounter Note Name of caller: May Contact phone number: [phone] Relationship to Patient: [facility] Provider: Dr Cardenas Practice: [facility] Chief Complaint/Reason for Call: Caller saw patient today for a visit and his diastolic was a little elevated (144/98) -- he is requesting to be released from home care - his incision is healing with no issues. Phone number verified. Best time of day caller can be reached: AM Patient advised that office/PCP has 24-48 business hours to return their call: No [facility] 07-14-2024 History of Presen t illness Narrative We want to inform you that your patient's blood pressure was noted to be elevated in our office today. We thank you for trusting us with your patient's health. Last BP: BP Readings from Last 3 Encounters: 07/14/24 (!) 153/97 07/07/24 123/79 06/26/24 147/87 Images from the original note were not included. [facility] Advanced Laparoscopic Surgery Patient Name: Jacky Ellis Date: 07/14/24 S: Jacky Ellis follows up for a post operative visit after undergoing an open recurrent incisional hernia repair w/ NEELA, mesh, retrorectus release, SB lesion excision with Dr. Cardenas on 06/21/24. He is doing well without any major postoperative complications. His pain control is well controlled and he is not asking for narcotic refills. His bowel function has returned to normal without constipation or diarrhea. His appetite is returning to normal and he does not report any dysphagia, nausea or vomiting. Overall, he states that he's feeling well and pleased with his recovery. Presents today for staple removal - states that this site is very itchy and irritating, but otherwise no concerns today. Allergies Allergen Reactions Dapagliflozin Other Penicillins Other SKIN PEELS OFF PALMS OF HANDS AND FEET, YEARS AGO hands and feet peeled and bled Current Outpatient Medications Medication Sig Dispense Refill amiodarone (Pacerone) 200 MG tablet Take 200 mg by mouth 2 times daily. atorvastatin (Lipitor) 40 MG tablet Take 40 mg by mouth daily. carvedilol (Coreg) 25 MG tablet Take 25 mg by mouth 2 times daily. Entresto 24-26 MG tablet Take 1 tablet by mouth 2 times daily. metoprolol succinate XL (Toprol-XL) 25 MG 24 hr tablet Take 25 mg by mouth daily. potassium chloride CR (Klor-Con) 10 MEQ ER tablet Take 10 mEq by mouth daily. tiZANidine (Zanaflex) 4 MG tablet Take 4 mg by mouth 3 times daily as needed. Xarelto 15 MG tablet Take 15 mg by mouth with evening meal. No current facility-administered medications for this visit. Past Medical History: Diagnosis Date Arthritis Back pain lower Heart attack (HCC) Hypertension Lobar pneumonia, unspecified organism (HCC) 12/04/2020 Scoliosis Stroke (HCC) 2020 patient denies h/o CVA Past Surgical History: Procedure Laterality Date ABLATION FOR ATRIAL FIBRILLATION (HISTORICAL) CARDIAC SURGERY 2020 COLONOSCOPY CORONARY ARTERY BYPASS GRAFT DENTAL SURGERY HERNIA REPAIR Right 1958 [facility] INCISIONAL HERNIA REPAIR 06/21/2024 [place]; open rec repair w/ NEELA, mesh, retrorectus release RT/LT HEART CATHETERS (HISTORICAL) TRIPLE BYPASS THREE VALUES SHOULDER SURGERY SMALL INTESTINE SURGERY 08/2022 SBR SPINAL CORD STIMULATOR IMPLANT 2022 TONSILLECTOMY 1960 TOTAL SHOULDER ARTHROPLASTY UMBILICAL HERNIA REPAIR 08/2022 [place] O: BP (!) 136/91 (BP Location: Right arm, Patient Position: Sitting, BP Cuff Size: Adult) Pulse 93 Temp 36.8 C (98.2 F) (Temporal) Ht 6' 2 (1.88 m) Wt 249 lb 8 oz (113 kg) SpO2 93% BMI 32.03 kg/m Physical Exam: The wounds are healing well. There is no evidence of infection, seroma, erythema or hernia; abdomen soft, non-tender; arun intact with mild reactive erythema, no drainage Pathology: Final Diagnosis A. SOFT TISSUE, INTESTINAL MASS, BIOPSY - FIBROUS TISSUE WITH COLLECTION OF PIGMENTED AND FOAMY MACROPHAGES AND RARE GIANT CELLS, CONSISTENT WITH REACTIVE PROCESS. Comment: The pigmented material present is consistent with hemosiderin, as evidenced by positive staining with an iron stain. A CD163 stain highlights the involved macrophages while a pankeratin stain is positive in surface lining mesothelial cells. No evidence of an invasive epithelial process is identified in these samplings. B. SOFT TISSUE, DEBRIDEMENT - SKIN AND SUBCUTANEOUS TISSUE WITH CHANGES SUGGESTIVE OF HERNIA SAC OR CYST. Assessment/Plan Jacky was seen today for new patient. Diagnoses and all orders for this visit: Encounter for postoperative care (Primary) Jacky Ellis is a 73 y.o. male presenting for postoperative evaluation after undergoing an open recurrent incisional hernia repair w/ NEELA, mesh, retrorectus release, SB lesion excision on 06/21/24. He may advance diet as tolerated. He may increase their activity to a normal level yet refrain from lifting greater than 40# for one month after surgery. All arun removed. Follow-up in 6 months. The patient was seen and examined independently and relevant data reviewed by myself. A full chart review was performed. Patient Care Team: Hoda Grayson as PCP - General (Family Medicine) Sam Modi MD as Service Engine Repairer (Cardiology) Natalia Sargent MD (Pain Medicine) documented in this encounter [facility] 07-07-2024 History of Presen t illness Narrative Images from the original note were not included. [facility] Advanced Laparoscopic Surgery Patient Name: Jacky Ellis Date: 07/07/24 S: Jacky Ellis follows up for a post operative visit after undergoing an open recurrent incisional hernia repair w/ NEELA, mesh, retrorectus, excision of small bowel lesion on 06/21/24. He is doing well without any major postoperative complications. His pain control is well controlled and he is not asking for narcotic refills. His bowel function has returned to normal without constipation or diarrhea. His appetite is returning to normal and he does not report any dysphagia, nausea or vomiting. Allergies Allergen Reactions Dapagliflozin Other Penicillins Other SKIN PEELS OFF PALMS OF HANDS AND FEET, YEARS AGO hands and feet peeled and bled Current Outpatient Medications Medication Sig Dispense Refill amiodarone (Pacerone) 200 MG tablet Take 200 mg by mouth 2 times daily. atorvastatin (Lipitor) 40 MG tablet Take 40 mg by mouth daily. carvedilol (Coreg) 25 MG tablet Take 25 mg by mouth 2 times daily. Entresto 24-26 MG tablet Take 1 tablet by mouth 2 times daily. oxyCODONE (Roxicodone) 5 MG immediate release tablet Take 10 mg by mouth every 8 hours as needed for severe pain (7-10). Xarelto 15 MG tablet Take 15 mg by mouth with evening meal. No current facility-administered medications for this visit. Past Medical History: Diagnosis Date Arthritis Back pain lower Heart attack (HCC) Hypertension Lobar pneumonia, unspecified organism (HCC) 12/04/2020 Scoliosis Stroke (HCC) 2020 patient denies h/o CVA Past Surgical History: Procedure Laterality Date ABLATION FOR ATRIAL FIBRILLATION (HISTORICAL) CARDIAC SURGERY 2020 COLONOSCOPY CORONARY ARTERY BYPASS GRAFT DENTAL SURGERY HERNIA REPAIR Right [facility] OTHER SURGICAL HISTORY 06/21/2024 OPEN INCISIONAL HERNIA REPAIR WITH MESH RT/LT HEART CATHETERS (HISTORICAL) TRIPLE BYPASS THREE VALUES SHOULDER SURGERY SMALL INTESTINE SURGERY 08/2022 SBR SPINAL CORD STIMULATOR IMPLANT 2022 TONSILLECTOMY 1960 TOTAL SHOULDER ARTHROPLASTY UMBILICAL HERNIA REPAIR 08/2022 [place] O: BP 123/79 (BP Location: Right arm, Patient Position: Sitting, BP Cuff Size: Adult long) Pulse 73 Temp 36.2 C (97.1 F) (Temporal) Ht 6' 2 (1.88 m) Wt 251 lb 14.4 oz (114 kg) BMI 32.34 kg/m Physical Exam: The wounds are healing well. There is no evidence of infection, seroma, erythema or hernia Pathology: Final Diagnosis A. SOFT TISSUE, INTESTINAL MASS, BIOPSY - FIBROUS TISSUE WITH COLLECTION OF PIGMENTED AND FOAMY MACROPHAGES AND RARE GIANT CELLS, CONSISTENT WITH REACTIVE PROCESS. Comment: The pigmented material present is consistent with hemosiderin, as evidenced by positive staining with an iron stain. A CD163 stain highlights the involved macrophages while a pankeratin stain is positive in surface lining mesothelial cells. No evidence of an invasive epithelial process is identified in these samplings. B. SOFT TISSUE, DEBRIDEMENT - SKIN AND SUBCUTANEOUS TISSUE WITH CHANGES SUGGESTIVE OF HERNIA SAC OR CYST. Assessment/Plan Diagnoses and all orders for this visit: Encounter for postoperative care (Primary) Jacky Ellis is a 73 y.o. male presenting for postoperative evaluation after undergoing an open recurrent incisional hernia repair w/ NEELA, mesh, retrorectus, excision of small bowel lesion on 06/21/24. Patient self removed his drain yesterday. Stated it had minimal output. He removed the wound vac yesterday. He may advance diet as tolerated. He may increase their activity to a normal level yet refrain from lifting greater than 15# for one month after surgery. Follow-up 1 week for staple removal. The patient was seen and examined independently and relevant data reviewed by myself. A full chart review was performed. Patient Care Team: Hoda Grayson as PCP - General (Family Medicine) Sam Modi MD as Service Engine Repairer (Cardiology) Natalia Sargent MD (Pain Medicine) documented in this encounter [facility] 06-27-2024 Telephone encounter Note Home care called and stated the pt started that today. Just an informative call, no action required. [facility] 06-27-2024 Miscellaneous Notes Home care called and stated the pt started that today. Just an informative call, no action required. New Itinerary mailed to pt through [employer] Spoke to the patient and let him know the surgery has been moved to 06/21/24 at 7:30, arrival time at 5:30. Pt advised to keep original PAT at 05/29/24 at 11:00 Pt post op scheduled 07/07/24 at 1:00 pm Spoke to Gali from [facility], she will fax results Spoke to pt. Pt will get this done tomorrow. Called [facility] - at first they stated they did not have the order. I explained that I personally faxed the order on 05/11. She put me on hold and came back and stated she had the order but they did not draw the blood when he came in on 05/12. They only makeda the blood from a different physician - Dr Maddox. They did not draw the blood ordered from Earline Lew, only from Dr Kowalski. They state the patient did not specify he had orders from more than one physician. She stated she had the order and it was good for a year. Pt had lab work done at [facility] a couple of weeks ago and wants the results. documented in this encounter [facility] 06-26-2024 Miscellaneous Notes SDOH completed with patient. Updated SDOH questionnaire. He denied any problems with food, utilities, housing or transportation. Patient Choice Patient Name: JACKY ELLIS Date of : 1950 All Providers Sent Referral Name: [facility] Phone: [phone] [address]: [address] [place] [address] Start PACC Note Home Health Referral Educated patient on Home Care and services available. Patient offered choice of available HHC and agreeable to SN/PT services with [facility] - [facility] Care. Care Types: None Isolation Precautions: No active isolations Social Determinates of Health: Tobacco Use: Medium Risk (06/21/2024) Patient History Smoking Tobacco Use: Former Smokeless Tobacco Use: Never Passive Exposure: Not on file Social History Substance and Sexual Activity Alcohol Use Not Currently Comment: OCC TWICE A MONTH Social History Substance and Sexual Activity Drug Use Not Currently Does the patient have any financial resource strain? No Does the patient have any food insecurities? No Does the patient have any housing instabilities? No If any of the above is noted as yes - consider a LIVESTOCK PRODUCER evaluation once the patient returns home. START PATIENT REGISTRATION INFORMATION Order Information Order Signing Physician: Antione Cardenas, DO Service Ordered RN ?: Yes Service Ordered PT ?: Yes Service Ordered OT ?: No Service Ordered ST ?: No Service Ordered LIVESTOCK PRODUCER?:No Service Ordered ASH CONVEYOR OPERATOR?: No Following Physician: Antione Cardenas MD Following Physician Overseeing Physician: n/a (Required for Residents only) Agreeable to Follow? Yes Date/Time of Call 06/26/24 2:07 PM, Spoke with: Dr. Cardenas via secure chat Care Coordination Same Day SOC?: No Primary Care Physician: Hoda Grayson Primary Care Physician Primary Care Physician [address] [facility] [id number] Visit Instructions: N/A Service Discharge Location Type: Home with Home Care Service Facility Name: N/A Service Floor Facility: N/A Service Room No: N/A Demographics Patient Last Name: Hernandez Patient First Name: Jacky Language/Communication Barrier: none Service Address: [address] [place] [address] City: [place] Service ST: [place] Service ZIP: [address] Service (home) Other phone numbers: Telephone Information: Emergency Contact: Extended Emergency Contact Information Primary Emergency Contact: Mitch Hicks Mobile Relation: Child Environmental Laboratory Technician needed? No Secondary Emergency Contact: John Cosme Mobile Relation: Friend Environmental Laboratory Technician needed? No Admission Information Admit Date: 06/21/2024 Patient status at discharge: Inpatient Admitting Diagnosis: Incisional hernia without obstruction or gangrene [K43.2] Caregiver Information Caregiver First Name: n/a Caregiver Last Name: n/a Caregiver Relationship to Patient: n/a Caregiver Phone Number: n/a Caregiver Notes: N/A [employer] HIGHTECH: HI TECH - DISPOSABLE WOUND VAC Order: Remove prevena vac on follow-up with Dr. Cardenas. If Prevena vac loses suction or malfunctions, contact physician's office or refer to discharge paperwork for further instructions. Is patient teachable for wet-to-dry dressing change?: Yes Following Physician: Antione Cardenas MD [facility]: HI TECH - DRAIN CARE TYPE: JOELLE Drain ORDERS: Please strip and empty JOELLE drains q shift and PRN. Please record output q shift and PRN. END PATIENT REGISTRATION INFORMATION Pt Home Health goal home COVID Status 1. Do you have any upper respiratory symptoms (cough, SOB, Fever)? No 2. Have you been exposed to anyone with COVID-19 Virus? No Answer only if pending or positive for COVID-19? 1. Agreeable to wear PPE at each visit? No 2. Is the hospital supplying them with PPE upon Discharge? No Start PACC Summary General Report/ Additional Comments Jacky Ellis is a 73 y.o. male who presented to [facility] on 06/21/2024 for elective bariatric surgical procedure. This patient underwent an open recurrent incisional hernia repair with lysis of adhesions and implant of mesh on the day of admission. Wound vac was left in place. Patient worked with PT and was prepared for discharge POD #5. At the time of discharge patient's vital signs were within normal limits. Patient was voiding spontaneously, tolerating a diet, ambulating independently and having bowel function. Patient's pain was controlled with PO pain meds. Pt was discharged with instructions as follows. PT/OT rec IPR, pt agreeable to C - SN/PT with [facility]. Denied DME needs. Was taught at bedside on JOELLE drain by RN. Discharge Date: pending Referral Source-PACC: (Hospital/Unit): [facility] / -[phone] A End PACC Note TCC received message from sx team regarding patient auth for IPR. TCC spoke with team. TCC in to speak with patient. TCC clarified with patient that his DCP is home with home care. Friend in room with patient and able to transport patient home. Patient is agreeable to home care. Sx team, home care and RN secure message regarding patient choice. Problem: Pain - Adult Goal: Verbalizes/displays adequate comfort level or baseline comfort level Outcome: Progressing Problem: Safety - Adult Goal: Free from fall injury Outcome: Progressing Problem: Problem Interventions Goal: Assess Nutritional Intake Outcome: Progressing Tolerating diet ambulating in room. Feels good. Patient states better pain control and he slept 4 hours last pm, wants food secure message sent to surgery. Problem: Pain - Adult Goal: Verbalizes/displays adequate comfort level or baseline comfort level 06/24/20242111 by Gris Decker RN Outcome: Progressing 06/24/20242111 by Gris Decker RN Outcome: Progressing Problem: Safety - Adult Goal: Free from fall injury 06/24/20242111 by Gris Decker RN Outcome: Progressing 06/24/20242111 by Gris Decker RN Outcome: Progressing Documented earlier. Medicated per order has better pain control at this time. Had small BM. Walking in room with steady gait safety maintained. Problem: Pain - Adult Goal: Verbalizes/displays adequate comfort level or baseline comfort level Outcome: Progressing Problem: Safety - Adult Goal: Free from fall injury Outcome: Progressing Care Managment Initial Assessment Date: 06/23/2024 Patient Name: Jacky Ellis : 1950 Patient Information Source of Information: Patient Cognition/Language: WFL - Within Functional Limits Permission given to speak with patient lifeline representatives/caregiver as indicated: Yes Confirmation of Payer with patient/family: Yes Payer Name: Mayra Medicare Advantage [place]: No Confirmation of Primary Care Physician: Confirmed PCP Name: Hoda Grayson Seen in last 2 years?: Yes Primary Caregiver: Self If assistance needed, confirmed caregiver ready, willing and able to care for patient at discharge: Confirmed with: per patient his neighbor Living Arrangements Current Residence: House Number of Floors 1 Number of Entry Steps: (ramp) Bed/Bath Levels: Facility: Facility Name: Plan to Return: Lives with: Alone Support Systems: Children, Friends/neighbors Activities of Daily Living Ambulation: Independent Bathing/Dressing: Independent Elimination/Continence/Toileting : Independent Feeding: Independent Who Assists with Activities of Daily Living: Instrumental Activities of Daily Living Prescription Coverage: Yes Pharmacy Used: [facility] Medication Management: Independent Transportation/Shopping: Independent Transportation Mode: Car Needs Assistance with Transportation at Discharge: No Meal Preparation: Independent Laundry/Cleaning: Independent Finances/Bill Paying: Independent Communication: Independent Types of Care Services/Equipment Utilized Care Services: Dialysis Type: Durable Medical Equipment: (walk in shower with railings) Patient's Goal/Discharge Plan Patient expects to be discharged to: home Discharge Planning Actions: Continue to follow Patient's Choice Rights and [employer] and Collaborative Relationships Disclosed as Indicated for Post-Acute Care: Interdisciplinary Team Engagement: Social Work Referral for: Additional Information: Patient admitted to [facility] s/p open incisional hernia repair with mesh 06/21/2024. Met with pt at bedside, introduced self and explained role of TCC. Pt has insurance with RX coverage, active with PCP. Patient lives alone. Patient has friends and neighbors to assist. Patient denies any home going needs. Per patient he needs to have a bm and then his diet will be advanced. TCC to assist and follow as needed. Kelsie Yoder RN Problem: Pain - Adult Goal: Verbalizes/displays adequate comfort level or baseline comfort level 06/23/2024 1137 by Christina Pedroza RN Outcome: Progressing 06/23/2024 1042 by Christina Pedroza RN Outcome: Progressing Problem: Safety - Adult Goal: Free from fall injury 06/23/2024 1137 by Christina Pedroza RN Outcome: Progressing 06/23/2024 1042 by Christina Pedroza RN Outcome: Progressing Problem: Pain - Adult Goal: Verbalizes/displays adequate comfort level or baseline comfort level Outcome: Progressing Problem: Safety - Adult Goal: Free from fall injury Outcome: Progressing Problem: Pain - Adult Goal: Verbalizes/displays adequate comfort level or baseline comfort level Outcome: Progressing Flowsheets (Taken 06/22/20242122) Verbalizes/displays adequate comfort level or baseline comfort level: Assess pain using appropriate pain scale Administer analgesics based on type and severity of pain and evaluate response Problem: Safety - Adult Goal: Free from fall injury Outcome: Progressing Flowsheets (Taken 06/22/20242122) Free from fall injury: Instruct family/caregiver on patient safety Discussed Home Care Services available to patient post DC from the hospital. Educated the patient on the services that are provided, objective of home care, and reason for the services. At this time the patient states they feel home care is not necessary. Pt has plenty of help at home and is not concerned about the prevena wound vac. The patient politely declined home care services. The patient was educated that should any needs arise post DC to follow up with their PCP. The patient was able to verbalize understanding. Home care to sign off. Please re-consult should any other needs arise prior to DC. Problem: Pain - Adult Goal: Verbalizes/displays adequate comfort level or baseline comfort level 06/22/2024 0958 by Christina Pedroza RN Outcome: Progressing 06/22/2024 0953 by Christina Pedroza RN Outcome: Progressing Problem: Safety - Adult Goal: Free from fall injury 06/22/2024 0958 by Christina Pedroza RN Outcome: Progressing 06/22/2024 0953 by Christina Pedroza RN Outcome: Progressing Problem: Pain - Adult Goal: Verbalizes/displays adequate comfort level or baseline comfort level Outcome: Progressing Problem: Safety - Adult Goal: Free from fall injury Outcome: Progressing Problem: Pain - Adult Goal: Verbalizes/displays adequate comfort level or baseline comfort level Outcome: Progressing Flowsheets (Taken 06/21/20242200) Verbalizes/displays adequate comfort level or baseline comfort level: Assess pain using appropriate pain scale Administer analgesics based on type and severity of pain and evaluate response Problem: Safety - Adult Goal: Free from fall injury Outcome: Progressing Flowsheets (Taken 06/21/20242200) Free from fall injury: Instruct family/caregiver on patient safety Problem: Pain - Adult Goal: Verbalizes/displays adequate comfort level or baseline comfort level 06/21/2024 1639 by Christina Pedroza RN Outcome: Progressing 06/21/2024 1517 by Christina Pedroza RN Outcome: Progressing Problem: Safety - Adult Goal: Free from fall injury 06/21/2024 1639 by Christina Pedroza RN Outcome: Progressing 06/21/2024 1517 by Christina Pedroza RN Outcome: Progressing Problem: Pain - Adult Goal: Verbalizes/displays adequate comfort level or baseline comfort level Outcome: Progressing Problem: Safety - Adult Goal: Free from fall injury Outcome: Progressing Family to bedside for short visit John updated by telephone. Waiting for bed assignment Images from the original note were not included. CAMMIE GOINS DO, [facility] LAPAROSCOPY, BARIATRIC AND ROBOTIC SURGERY [facility] OPERATIVE REPORT 06/21/24 PATIENT: Jacky Ellis DATE OF : 1950 PROCEDURE: OPEN RECURRENT (>10 CM) INCISIONAL HERNIA (INCARCERATED) REPAIR WITH LYSIS OF INTRAABDOMINAL ADHESIONS (09311) IMPLANTATION OF MESH RIGHT MYOCUTANEOUS FLAP (09896) LEFT MYOCUTANEOUS FLAP (25887, Modifier 59) DEBRIDEMENT OF SKIN, MUSCLE, AND FASCIA EXCISION, SMALL INTESTINE LESION WITHOUT ANASTOMOSIS (97303) NEGATIVE PRESSURE WOUND VAC THERAPY (PREVENA) >50 ( 30 cm x 3 cm x 1 cm) (34921) SURGEON: Antione Cardenas DO PHOTOGRAMMETRIC SURVEYOR: Earline Lew PA-C was asked to assist on this case as qualified residents were not available. PRE-OPERATIVE DIAGNOSES: RECURRENT (>10 CM) INCISIONAL HERNIA (INCARCERATED) Abnormal CT scan of the abdomen and pelvis Abdominal Pain History of heart attack History of stroke CHF with preserved ejection fraction History of umbilical hernia repair History of small bowel resection History of prior CABG Liver cirrhosis POST-OPERATIVE DIAGNOSES: Same, no identifiable mesh, excised small intestine lesion ANESTHESIA: General endotracheal, Transverse abdominis plane block FLUIDS: Per anesthesia ESTIMATED BLOOD LOSS: 10 mL URINE OUTPUT: Per anesthesia CONSENT: The patient was seen in the preoperative area. The details of the procedure were discussed including the risks, benefits, complications, alternatives, expected recovery and outcomes. The site of surgery was properly noted/marked if necessary per policy. INFECTION CONTROL: Procedure appropriate prophylactic antibiotic(s) given within 1 hour of surgical incision (two hours if receiving Vancomycin or flouroquinolone) No Infection Present SPECIMENS: ID Type Source Tests Collected by Time 1 : INTESTINAL MASS Tissue Abdominal Wall TISSUE EXAM [facility], 06/21/2024 0833 2 : DEBRIDED CONTENTS Tissue Abdominal Wall TISSUE EXAM [facility], 06/21/2024 0916 COMPLICATIONS: None; patient tolerated the procedure well. PREOPERATIVE MEDICATIONS: Pre-operative IV antibiotics: Clindamycin INDICATIONS FOR PROCEDURE: The patient is a 73 y.o. male with a large RECURRENT (>10 CM) INCISIONAL HERNIA (INCARCERATED) . The patient was evaluated and abdominal wall reconstruction was recommended. The risks, benefits and options of the procedure and additional possible interventions were reviewed and all questions were answered to the patient's satisfaction. DESCRIPTION OF PROCEDURE: Time Out, Prepping and Draping The patient was transported to the operating room and identified by name and number. The patient was placed on the operating room table in the supine position and general endotracheal anesthesia was administered by members of the anesthesia team. Following placement of sequential compression devices, OG and killian catheter, the patients extremities were positioned and protected. The abdomen was prepped and draped in standard surgical fashion. An operating room team time out was performed confirming the identity of the patient and the planned procedure. Abdominal Entry, Evaluation, Adhesiolysis Using a ten-blade scalpel, a midline incision was made from below xyphoid to above the pubis along pre marked lines. Previous scar was incorporated in an ellipsoid incision. Dissection was performed with electrocautery down to the level of the deep fascia. Limited lateral undermining was performed. Meticulous hemostatic technique was exercised throughout the procedure to minimize blood loss. The abdomen was then entered. The abdominal cavity was then inspected and significant adhesions to the anterior abdominal wall and small bowel was noted. A lysis of adhesions was performed. During this lysis, a small lesion was noted near the previous small bowel anastomosis. This lesion was resected in its entirety with sharp scissors and passed off as a separate specimen. Hemostasis was confirmed. Resected region of the small intestine appeared unremarkable without succus and with uninjured serosa. Next, the hernia was assessed and found to be large defect measuring 11 cm in total length. Incisional Hernia Repair, RIGHT Retro Rectus Release, Myocutaneous Flap We now proceeded with our right retro rectus release. The right rectus sheath was incised near the midline, on the posterior aspect, as close to the the junction of anterior and posterior rectus sheath, to preserve largest possible area of posterior rectus sheath. The posterior sheath was then leaving the rectus muscle attached to the anterior rectus sheath. Care was taken not to separate the epigastric vessels leaving them with the rectus muscle. The posterior rectus sheath was laterally up to the neurovascular bundles traveling towards and entering the rectus muscle. These were identified and preserved and dissection limited to the extent of their uninjured course. The superior and inferior extents of the dissection were the xyphoid and space of retzius below the pubic tubercle respectfully. Next, the myocutaneous flap was medialized. Incisional Hernia Repair, LEFT Retro Rectus Release, Myocutaneous Flap We now proceeded with our left retro rectus release. The left rectus sheath was incised near the midline, on the posterior aspect, as close to the the junction of anterior and posterior rectus sheath, to preserve largest possible area of posterior rectus sheath. The posterior sheath was then leaving the rectus muscle attached to the anterior rectus sheath. Care was taken not to separate the epigastric vessels leaving them with the rectus muscle. The posterior rectus sheath was laterally up to the neurovascular bundles traveling towards and entering the rectus muscle. These were identified and preserved and dissection limited to the extent of their uninjured course. The superior and inferior extents of the dissection were the xyphoid and space of retzius below the pubic tubercle respectfully. Next, the myocutaneous flap was medialized. Debridement of Skin, Muscle, Fascia - Non-Necrotizing Following medialization of both myocutaneous flaps, the anterior fascia reached midline tension free. We assessed the dermis, subcutaneous tissue, muscle and fascia. Wound edges appeared non-viable and Non-Necrotizing . We now proceeded with debridement of all non-viable dermis, subcutaneous tissue, muscle and fascia. This debridement was performed with a combination of sharp and electrocautery removal. Following debridement, all muscle and fascial edges appeared viable with bleeding and firing response to electrocautery. Hemostasis was obtained. Posterior Rectus Sheath/Peritoneum Closure At the conclusion of dissection, the both sides of fascia easily reached midline without tension. A preliminary sponge needle and instrument count was performed and was correct. Next, the posterior rectus sheath/peritoneum was closed with and 0-vicryl suture closing the peritoneal cavity in its entirety. The retro rectus space was inspected and hemostasis was confirmed. Mesh Implantation The retro rectus space was measured and a 25 x 20 cm sheet of Roxobel Synecor mesh was selected. This was first placed in the retropubic space. One 19-Czech David drains were placed in the retro rectus space and the retropubic space. The mesh was then placed flatly in the retro rectus space and Vistaseal was applied. Fascial Closure We now proceeded with anterior fascial closure. A #1 STRATAFIX symmetric PDS suture was run superiorly. This was repeated inferiorly until the defect was closed. Closure and Negative Pressure Wound Vac Therapy The subcutaneous tissue was then copiously irrigated with 1 L of warm saline. Vistaseal was applied. A subcutaneous drain was placed. The skin flaps were approximated and sutured together in several layers: Running 4-0 PDS for essie's fascia and interrupted 3-0 Vicryl for the deep dermis. Arun were used to close the skin. An incisional vac ( 30 cm x 3 cm x 1 cm) was applied. Conclusion The needle, sponge and instrument counts were correct. The patient tolerated the procedure and the anesthesia well without any major complications. The peak airway pressures were observed and deemed within normal limits. The patients was transported to the post-anesthesia care unit in stable condition. I was present for the entire duration of the procedure. Date: 06/21/2024 Location: [facility] OR Name: Jacky Ellis : 1950, Diagnosis Pre-op Diagnosis * Incisional hernia without obstruction or gangrene [K43.2] Post-op Diagnosis * Incisional hernia without obstruction or gangrene [K43.2] Procedures OPEN INCISIONAL HERNIA REPAIR WITH MESH 94094 - CO RPR AA HERNIA 1ST 3-10 CM NCRC8/STRANGULATED POSSIBLE COMPONENT SEPARATION 27665 - CO MUSC MYOCUTANEOUS/FASCIOCUTANEOUS FLAP TRUNK Surgeons * Antione Cardenas - Primary Kayleigh Lim PGY3 Procedure Summary Anesthesia: General ASA: III Estimated Blood Loss: 100cc Drains: Closed/Suction Drain Lateral RUQ Bulb 19 Fr. (Active) Dressing Status Clean, dry & intact 06/21/24 1015 Drainage Appearance Bloody 06/21/24 1015 Status To bulb suction 06/21/24 1015 Accordion/Bulb/Other Output (mL) 20 mL 06/21/24 1731 Closed/Suction Drain Lateral RLQ Bulb 19 Fr. (Active) Dressing Status Clean, dry & intact 06/21/24 1015 Drainage Appearance Bloody 06/21/24 1015 Status To bulb suction 06/21/24 1015 Accordion/Bulb/Other Output (mL) 10 mL 06/21/24 1731 Urethral Catheter Straight-tip (Active) Catheter Indications Short-term following a surgical procedure (i.e. Urological or Gynecological) or active irrigation 06/21/24 1459 Site Assessment Clean;Skin intact 06/21/24 1459 Collection Container Standard drainage bag 06/21/24 1459 Securement Method Securing device 06/21/24 1459 Catheter Best Practices Drainage tube clipped to bed;Catheter secured to thigh;Tamper seal intact;Bag below bladder;Bag not on floor;Lack of dependent loop in tubing;Drainage bag less than half full 06/21/24 1459 Catheter Status Draining;Patent 06/21/24 145 Output (mL) 300 mL 06/21/24 1731 Specimens ID Source Type Tests Collected By Collected At Frozen? Priority Lab ID 1 Abdominal Wall Tissue TISSUE EXAM Antione Cardenas DO 06/21/24 0833 No Routine [id number] Description: INTESTINAL MASS 2 Abdominal Wall Tissue TISSUE EXAM Antione Cardenas DO 06/21/24 0916 No Routine [id number] Description: DEBRIDED CONTENTS Implants Type Name Action Serial No. Mesh MESH SURG SYNECOR PRE [id number] - [id number] - [id number] Implanted [id number] Staff: Operator Receptionist: Rosana Steve RN Physician Certified Medical Coder: Earline Lew PA-C Scrub Person: Karla Cottrell RN Excelsior to Circ: Marybel Fisher RN Findings: see full op note Complications: None; patient tolerated the procedure well. Specimens Collected: Order Name Source Comment Collection Info Order Time PROTHROMBIN TIME If patient on coumadin within 4 days prior. Collected By: Marybel Fisher RN 06/21/2024 5:50 AM APTT Blood, Venous Collected By: Marybel Fisher RN 06/21/2024 8:30 AM TISSUE EXAM Abdominal Wall Collected By: Antione Cardenas DO 06/21/2024 8:33 AM Wound Class: Class I: Clean Blood Products: None Prophylactic Antibiotics: Procedure appropriate prophylactic antibiotic(s) given within 1 hour of surgical incision (two hours if receiving Vancomycin or flouroquinolone) Cosigned by Antione Cardenas DO at 06/21/2024 6:01 PM EDT documented in this encounter [facility] 06-26-2024 Note Formatting of this n ote might be different from the original. SDOH completed with patient. Updated SDOH questionnaire. He denied any problems with food, utilities, housing or transportation. [facility] 06-26-2024 Note Formatting of this n ote might be different from the original. SDOH completed with patient. Updated SDOH questionnaire. He denied any problems with food, utilities, housing or transportation. [facility] 06-26-2024 Note Formatting of this n ote might be different from the original. Patient Choice Patient Name: JACKY ELLIS Date of : 1950 All Providers Sent Referral Name: [facility] Phone: [phone] Address: [address] [place] [address] [facility] 06-26-2024 Note Formatting of this n ote might be different from the original. Patient Choice Patient Name: JACKY ELLIS Date of : 1950 All Providers Sent Referral Name: [facility] Phone: [phone] Address: [address] [place] [address] [facility] 06-26-2024 Note Formatting of this n ote is different from the original. Start PACC Note Home Health Referral Educated patient on Home Care and services available. Patient offered choice of available HHC and agreeable to SN/PT services with [facility] - Home Care. Care Types: None Isolation Precautions: No active isolations Social Determinates of Health: Tobacco Use: Medium Risk (06/21/2024) Patient History Smoking Tobacco Use: Former Smokeless Tobacco Use: Never Passive Exposure: Not on file Social History Substance and Sexual Activity Alcohol Use Not Currently Comment: OCC TWICE A MONTH Social History Substance and Sexual Activity Drug Use Not Currently Does the patient have any financial resource strain? No Does the patient have any food insecurities? No Does the patient have any housing instabilities? No If any of the above is noted as yes - consider a LIVESTOCK PRODUCER evaluation once the patient returns home. START PATIENT REGISTRATION INFORMATION Order Information Order Signing Physician: Antione Cardenas, DO Service Ordered RN ?: Yes Service Ordered PT ?: Yes Service Ordered OT ?: No Service Ordered ST ?: No Service Ordered LIVESTOCK PRODUCER?:No Service Ordered ASH CONVEYOR OPERATOR?: No Following Physician: Antione Cardenas MD Following Physician Overseeing Physician: n/a (Required for Residents only) Agreeable to Follow? Yes Date/Time of Call 06/26/24 2:07 PM, Spoke with: Dr. Cardenas via secure chat Care Coordination Same Day SOC?: No Primary Care Physician: Hoda Grayson Primary Care Physician Primary Care Physician Address: [address] [place] [address] / [facility] [id number] Visit Instructions: N/A Service Discharge Location Type: Home with Home Care Service Facility Name: N/A Service Floor Facility: N/A Service Room No: N/A Demographics Patient Last Name: Hernandez Patient First Name: Jacky Language/Communication Barrier: none Service Address: [address] [place] [address] Service City: [facility] ST: [place] Service ZIP: [address] Service (home) Other phone numbers: Telephone Information: Emergency Contact: Extended Emergency Contact Information Primary Emergency Contact: Mitch Hicks Mobile Relation: Child Environmental Laboratory Technician needed? No Secondary Emergency Contact: John Cosme Mobile Relation: Friend Environmental Laboratory Technician needed? No Admission Information Admit Date: 06/21/2024 Patient status at discharge: Inpatient Admitting Diagnosis: Incisional hernia without obstruction or gangrene [K43.2] Caregiver Information Caregiver First Name: n/a Caregiver Last Name: n/a Caregiver Relationship to Patient: n/a Caregiver Phone Number: n/a Caregiver Notes: N/A [employer] List HIGHTECH: HI TECH - DISPOSABLE WOUND VAC Order: Remove prevena vac on follow-up with Dr. Cardenas. If Prevena vac loses suction or malfunctions, contact physician's office or refer to discharge paperwork for further instructions. Is patient teachable for wet-to-dry dressing change?: Yes Following Physician: Antione [facility]ardenas [facility]CH - [facility]IN CARE TYPE: JOELLE Drain ORDERS: Please strip and empty JOELLE drains q shift and PRN. Please record output q shift and PRN. END PATIENT REGISTRATION INFORMATION Pt Home Health goal home COVID Status 1. Do you have any upper respiratory symptoms (cough, SOB, Fever)? No 2. Have you been exposed to anyone with COVID-19 Virus? No Answer only if pending or positive for COVID-19? 1. Agreeable to wear PPE at each visit? No 2. Is the hospital supplying them with PPE upon Discharge? No Start PACC Summary General Report/ Additional Comments Jacky Ellis is a 73 y.o. male who presented to [facility] on 06/21/2024 for elective bariatric surgical procedure. This patient underwent an open recurrent incisional hernia repair with lysis of adhesions and implant of mesh on the day of admission. Wound vac was left in place. Patient worked with PT and was prepared for discharge POD #5. At the time of discharge patient's vital signs were within normal limits. Patient was voiding spontaneously, tolerating a diet, ambulating independently and having bowel function. Patient's pain was controlled with PO pain meds. Pt was discharged with instructions as follows. PT/OT rec IPR, pt agreeable to HHC - SN/PT with [facility]. Denied DME needs. Was taught at bedside on JOELLE drain by RN. Discharge Date: pending Referral Source-PACC: (Hospital/Unit): [facility] / H-[id number]/[id number] A End PACC Note [facility] 06-26-2024 Note Formatting of this n ote is different from the original. Start PACC Note Home Health Referral Educated patient on Home Care and services available. Patient offered choice of available HHC and agreeable to SN/PT services with [facility] - Home Care. Care Types: None Isolation Precautions: No active isolations Social Determinates of Health: Tobacco Use: Medium Risk (06/21/2024) Patient History Smoking Tobacco Use: Former Smokeless Tobacco Use: Never Passive Exposure: Not on file Social History Substance and Sexual Activity Alcohol Use Not Currently Comment: OCC TWICE A MONTH Social History Substance and Sexual Activity Drug Use Not Currently Does the patient have any financial resource strain? No Does the patient have any food insecurities? No Does the patient have any housing instabilities? No If any of the above is noted as yes - consider a LIVESTOCK PRODUCER evaluation once the patient returns home. START PATIENT REGISTRATION INFORMATION Order Information Order Signing Physician: Antione Cardenas, DO Service Ordered RN ?: Yes Service Ordered PT ?: Yes Service Ordered OT ?: No Service Ordered ST ?: No Service Ordered LIVESTOCK PRODUCER?:No Service Ordered ASH CONVEYOR OPERATOR?: No Following Physician: Antione Cardenas MD Following Physician Overseeing Physician: n/a (Required for Residents only) Agreeable to Follow? Yes Date/Time of Call 06/26/24 2:07 PM, Spoke with: Dr. Cardenas via secure chat Care Coordination Same Day SOC?: No Primary Care Physician: Hoda Grayson Primary Care Physician Primary Care Physician Address: [address] [place] [id number] Visit Instructions: N/A Service Discharge Location Type: Home with Home Care Service Facility Name: N/A Service Floor Facility: N/A Service Room No: N/A Demographics Patient Last Name: Hernandez Patient First Name: Jacky Language/Communication Barrier: none Service Address: [address] [place] [address] Service City: [place] Service ST: [place] Service ZIP: [address] Service (home) Other phone numbers: Telephone Information: Emergency Contact: Extended Emergency Contact Information Primary Emergency Contact: Mitch Hicks Mobile Relation: Child Environmental Laboratory Technician needed? No Secondary Emergency Contact: John Cosme Mobile Relation: Friend Environmental Laboratory Technician needed? No Admission Information Admit Date: 06/21/2024 Patient status at discharge: Inpatient Admitting Diagnosis: Incisional hernia without obstruction or gangrene [K43.2] Caregiver Information Caregiver First Name: n/a Caregiver Last Name: n/a Caregiver Relationship to Patient: n/a Caregiver Phone Number: n/a Caregiver Notes: N/A [employer] List HIGHTECH: HI TECH - DISPOSABLE WOUND VAC Order: Remove prevena vac on follow-up with Dr. Cardenas. If Prevena vac loses suction or malfunctions, contact physician's office or refer to discharge paperwork for further instructions. Is patient teachable for wet-to-dry dressing change?: Yes Following Physician: Antione Cardenas MD [facility]: HI TECH - DRAIN CARE TYPE: JOELLE Drain ORDERS: Please strip and empty JOELLE drains q shift and PRN. Please record output q shift and PRN. END PATIENT REGISTRATION INFORMATION Pt Home Health goal home COVID Status 1. Do you have any upper respiratory symptoms (cough, SOB, Fever)? No 2. Have you been exposed to anyone with COVID-19 Virus? No Answer only if pending or positive for COVID-19? 1. Agreeable to wear PPE at each visit? No 2. Is the hospital supplying them with PPE upon Discharge? No Start PACC Summary General Report/ Additional Comments Jacky Ellis is a 73 y.o. male who presented to [facility] on 06/21/2024 for elective bariatric surgical procedure. This patient underwent an open recurrent incisional hernia repair with lysis of adhesions and implant of mesh on the day of admission. Wound vac was left in place. Patient worked with PT and was prepared for discharge POD #5. At the time of discharge patient's vital signs were within normal limits. Patient was voiding spontaneously, tolerating a diet, ambulating independently and having bowel function. Patient's pain was controlled with PO pain meds. Pt was discharged with instructions as follows. PT/OT rec IPR, pt agreeable to C - SN/PT with [facility]. Denied DME needs. Was taught at bedside on JOELLE drain by RN. Discharge Date: pending Referral Source-PACC: (Hospital/Unit): [facility] / H-[id number]/H-[id number] A End PACC Note [facility] 06-26-2024 Note Start PACC Note Home Health Referral Educated patient on Home Care and services available. Patient offered choice of available HHC and agreeable to SN/PT services with [facility] - Home Care. Care Types: None Isolation Precautions: No active isolations Social Determinates of Health: Tobacco Use: Medium Risk (06/21/2024) Patient History Smoking Tobacco Use: Former Smokeless Tobacco Use: Never Passive Exposure: Not on file Social History Substance and Sexual Activity Alcohol Use Not Currently Comment: OCC TWICE A MONTH Social History Substance and Sexual Activity Drug Use Not Currently Does the patient have any financial resource strain? No Does the patient have any food insecurities? No Does the patient have any housing instabilities? No If any of the above is noted as yes - consider a LIVESTOCK PRODUCER evaluation once the patient returns home. START PATIENT REGISTRATION INFORMATION Order Information Order Signing Physician: Antione Cardenas, DO Service Ordered RN ?: Yes Service Ordered PT ?: Yes Service Ordered OT ?: No Service Ordered ST ?: No Service Ordered LIVESTOCK PRODUCER?:No Service Ordered ASH CONVEYOR OPERATOR?: No Following Physician: Antione Cardenas MD Following Physician Overseeing Physician: n/a (Required for Residents only) Agreeable to Follow? Yes Date/Time of Call 06/26/24 2:07 PM, Spoke with: Dr. Cardenas via secure chat Care Coordination Same Day SOC?: No Primary Care Physician: Hoda Grayson Primary Care Physician Primary Care Physician Address: [address] [place] [phone] Visit Instructions: N/A Service Discharge Location Type: Home with Home Care Service Facility Name: N/A Service Floor Facility: N/A Service Room No: N/A Demographics Patient Last Name: Hernandez Patient First Name: Jacky Language/Communication Barrier: none Service Address: [address] [place] [address] Service City: [place] Service ST: [place] Service ZIP: [address] Service (home) Other phone numbers: Telephone Information: Emergency Contact: Extended Emergency Contact Information Primary Emergency Contact: Mitch Hicks Mobile Relation: Child Environmental Laboratory Technician needed? No Secondary Emergency Contact: John Cosme Mobile Relation: Friend Environmental Laboratory Technician needed? No Admission Information Admit Date: 06/21/2024 Patient status at discharge: Inpatient Admitting Diagnosis: Incisional hernia without obstruction or gangrene [K43.2] Caregiver Information Caregiver First Name: n/a Caregiver Last Name: n/a Caregiver Relationship to Patient: n/a Caregiver Phone Number: n/a Caregiver Notes: N/A [employer] List HIGHTECH: HI TECH - DISPOSABLE WOUND VAC Order: Remove prevena vac on follow-up with Dr. Cardenas. If Prevena vac loses suction or malfunctions, contact physician's office or refer to discharge paperwork for further instructions. Is patient teachable for wet-to-dry dressing change?: Yes Following Physician: Antione Cardenas MD [facility] HI TECH - DRAIN CARE TYPE: JOELLE Drain ORDERS: Please strip and empty JOELLE drains q shift and PRN. Please record output q shift and PRN. END PATIENT REGISTRATION INFORMATION Pt Home Health goal home COVID Status 1. Do you have any upper respiratory symptoms (cough, SOB, Fever)? No 2. Have you been exposed to anyone with COVID-19 Virus? No Answer only if pending or positive for COVID-19? 1. Agreeable to wear PPE at each visit? No 2. Is the hospital supplying them with PPE upon Discharge? No Start PACC Summary General Report/ Additional Comments Jacky Ellis is a 73 y.o. male who presented to [facility] on 06/21/2024 for elective bariatric surgical procedure. This patient underwent an open recurrent incisional hernia repair with lysis of adhesions and implant of mesh on the day of admission. Wound vac was left in place. Patient worked with PT and was prepared for discharge POD #5. At the time of discharge patient's vital signs were within normal limits. Patient was voiding spontaneously, tolerating a diet, ambulating independently and having bowel function. Patient's pain was controlled with PO pain meds. Pt was discharged with instructions as follows. PT/OT rec IPR, pt agreeable to [facility] - SN/PT with [facility]. Denied DME needs. Was taught at bedside on JOELLE drain by RN. Discharge Date: pending Referral Source-PACC: (Hospital/Unit): [facility] / H-[id number]/H-[id number] A End PACC Note [facility] 06-26-2024 Hospital Discharg e instructions Anna Goldsmith RN - 06/26/2024 2:03 PM EDT Images from the original note were not included. Continuity of Care Form Patient Name: Jacky Ellis : 1950 Admit date: 06/21/2024 Discharge date: Code Status Order: Full Code Advance Directives: N Admitting Physician: Antione Cardenas DO PCP: Hoda Grayson Discharging Nurse: Discharging Hospital Unit/Room#: [id number] A Discharging Unit Phone Number: Emergency Contact: Extended Emergency Contact Information Primary Emergency Contact: Mitch Hicks Mobile Relation: Child Environmental Laboratory Technician needed? No Secondary Emergency Contact: John Cosme Mobile Relation: Friend Environmental Laboratory Technician needed? No Past Surgical History: Past Surgical History: Procedure Laterality Date ABLATION FOR ATRIAL FIBRILLATION (HISTORICAL) CARDIAC SURGERY 2020 COLONOSCOPY CORONARY ARTERY BYPASS GRAFT DENTAL SURGERY HERNIA REPAIR Right 1958 [place] OTHER SURGICAL HISTORY 06/21/2024 OPEN INCISIONAL HERNIA REPAIR WITH MESH RT/LT HEART CATHETERS (HISTORICAL) TRIPLE BYPASS THREE VALUES SHOULDER SURGERY SMALL INTESTINE SURGERY 08/2022 SBR SPINAL CORD STIMULATOR IMPLANT 2022 TONSILLECTOMY 1960 TOTAL SHOULDER ARTHROPLASTY UMBILICAL HERNIA REPAIR 08/2022 [place] Immunization History: Immunization History Administered Date(s) Administered Moderna SARS-CoV-2 Vaccination 07/05/2020, 08/02/2020 Pneumococcal Conjugate PCV 13 06/03/2017 Pneumococcal Polysaccharide PPSV23 02/08/2019 SARS-CoV-2, Unspecified 10/23/2020, 11/27/2020 Tdap 01/30/2016 Active Problems: Medical Problems Problem List * (Principal) Incisional hernia without obstruction or gangrene Essential (primary) hypertension Dissection of thoracic aorta (HCC) Dependence on supplemental oxygen Atrial fibrillation (HCC) Overview Signed 01/06/2024 3:[address] Char[address] [facility] Coronary artery fistula Overview Signed 01/06/2024 3:16 PM by Charity Castilol From Proximal LAD to Main Pulmonary Artery/ Right Pulmonary Artery by cath 10/18/2018 From Proximal LAD to Main Pulmonary Artery/ Right Pulmonary Artery by cath 10/18/2018 Arteriosclerosis of coronary artery Overview Signed 01/06/2024 3:16 PM by Charity Castillo Had CP 10/17/2018 Cardiac cath 10/18/2018 RCA 100% POLYETHYLENE COMBINER-appearing 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 TTE 10/18/2018 EF 40-45% Lexiscan nuclear 10/20/2018 reversible inferior, inferolateral, and anterolateral ischemia EF26% Had CP 10/17/2018 Cardiac cath 10/18/2018 RCA 100% POLYETHYLENE COMBINER-appearing 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 TTE 10/18/2018 EF 40-45% Lexiscan nuclear 10/20/2018 reversible inferior, inferolateral, and anterolateral ischemia EF26% Cardiomegaly Aortic root dilation (HCC) Aneurysm, thoracic aortic (HCC) Acute on chronic systolic heart failure (HCC) Overview Signed 01/06/2024 3:16 PM by Charity Castillo Outside Source Comment: Comment on above: Had CP 10/17/2018 Cardiac cath 10/18/2018 RCA 100% POLYETHYLENE COMBINER-appearing 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 TTE 10/18/2018 EF 40-45% Lexiscan nuclear 10/20/2018 reversible inferior, inferolateral, and anterolateral ischemia EF26% pBNPT 3653 on 12/07/2018 Patient developed atrial fibrillation with RVR when hospitalized 10/17/2018 to 10/20/2018. Had epidural injection 12/15/2018. Has epidural injections every 90 days. Feels better. Lost 19 lfrom 12/07/2018 to 12/21/2018. pBNPT 12/21/2018 6729 pBNPT 5055 on 01/19/2019 pBNPT 2855 on 02/24/2019 Had epidural injection 12/15/2018 and 02/09/2019. Has epidural injections every 90 days. Outside Source Comment: Comment on above: Had CP 10/17/2018 Cardiac cath 10/18/2018 RCA 100% POLYETHYLENE COMBINER-appearing 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 TTE 10/18/2018 EF 40-45% Lexiscan nuclear 10/20/2018 reversible inferior, inferolateral, and anterolateral ischemia EF26% pBNPT 3653 on 12/07/2018 Patient developed atrial fibrillation with RVR when hospitalized 10/17/2018 to 10/20/2018. Had epidural injection 12/15/2018. Has epidural injections every 90 days. Feels better. Lost 19 lfrom 12/07/2018 to 12/21/2018. pBNPT 12/21/2018 6729 pBNPT 5055 on 01/19/2019 pBNPT 2855 on 02/24/2019 Had epidural injection 12/15/2018 and 02/09/2019. Has epidural injections every 90 days. Acute blood loss as cause of postoperative anemia Hyperlipidemia Hyperlipidemia, unspecified Hx of CABG Overview Signed 01/06/2024 3:18 PM by Charity Castillo X3 VESSELS 11/13/2020 [facility] HFrEF (heart failure with reduced ejection fraction) (HCC) Heart failure, unspecified (HCC) Fatigue Scoliosis/kyphoscoliosis Scoliosis, unspecified Right bundle-branch block Presence of other vascular implants and grafts Postoperative anemia Orthostatic hypotension Obesity, Class I, BMI 30-34.9 Obesity with body mass index 30 or greater Overview Signed 01/06/2024 3:18 PM by Charity Castillo I discussed [facility] weight 195 lbs I discussed [facility] weight 195 lbs Type II diabetes mellitus (HCC) Newly diagnosed diabetes (HCC) Lumbar radiculitis Low back pain Localized osteoarthritis of left shoulder Insomnia, unspecified Increased glucose level Overview Signed 01/06/2024 3:18 PM by Charity Castillo glu 143 on 10/18/2018 glu 102 on 12/07/2018 glu 147 on 12/21/2018 glu 143 on 10/18/2018 glu 102 on 12/07/2018 glu 147 on 12/21/2018 Acute renal failure (HCC) Cellulitis Type 2 diabetes mellitus with diabetic chronic kidney disease (HCC) Chronic kidney disease, stage 2 (mild) Stage 2 chronic kidney disease Overview Signed 02/03/2024 3:49 PM by Charity Castillo Serum Cr 1.32 on 12/21/2018 Serum Cr 1.52 on 01/19/2019 Chronic pain Disability of walking Dizziness and giddiness Lack of coordination Obstructed umbilical hernia Thrombocytopenia, unspecified (HCC) Spinal stenosis, lumbar Isolation/Infection: No active isolations No active infections Nurse Assessment: Last Vital Signs: BP 147/87 (BP Location: Left arm, Patient Position: Sitting) Pulse 62 Temp 36.2 C (97.2 F) (Temporal) Resp 16 Ht 1.88 m (6' 2.02) SpO2 97% BMI 31.44 kg/m Last documented pain score (0-10 scale): Last Weight: Wt Readings from Last 1 Encounters: 05/29/24 111 kg (245 lb) Mental Status: {HECTOR Patient Mental Status:21998} IV Access: {HECTOR IV Access:67659} Nursing Mobility/ADLs: Walking {SANTA ADL:::Independent} Transfer {SANTA ADL:::Independent} Bathing {SANTA ADL:::Independent} Dressing {SANTA ADL:::Independent} Toileting {SANTA ADL:::Independent} Feeding {SANTA ADL:::Independent} Power System Electrical Engineer {SANTA ADL:::Independent} Med Delivery {yes/no:91286} Wound Care Documentation and Therapy: Wound/Incision 06/21/24 Incision Abdomen Lower (Active) Site Assessment Unable to assess 06/26/24 0815 Germaine-Wound Assessment Clean;Dry;Intact 06/26/24 0815 Primary Dressing Vacuum dressing 06/26/24 0815 Dressing Status Clean, dry & intact 06/26/24 0815 Number of days: 5 Elimination: Continence: Bowel: {yes/no:78166} Bladder: {yes/no:} Urinary Catheter: {HECTOR Urinary Catheter:44939} Colostomy/Ileostomy/Ileal Conduit: {YES / NO:} Date of Last BM: Intake/Output Summary (Last 24 hours) at 06/26/2024 1403 Last data filed at 06/26/2024 1007 Gross per 24 hour Intake 1160 ml Output 1335 ml Net -175 ml I/O last 3 completed shifts: In: 1999 [P.O.:1999] Out: 1859 [Urine:1770; Drains:90] Safety Concerns: {HECTOR Safety Concerns:34182} Impairments/Disabilities: {HECTOR Impairments/Disabilities:04032} Nutrition Therapy: Current Nutrition Therapy: {HECTOR Diet List:01693} Routes of Feeding: {routes of feedin} Liquids: {liquid consistency:19505} Daily Fluid Restriction: {daily fluid restriction:65337} Last Modified Barium Swallow with Video (Video Swallowing Test): {done not done:75845} Treatments at the Time of Hospital Discharge: Respiratory Treatments: Oxygen Therapy: {Therapy; copd oxygen:31831} Ventilator: {HECTOR Ventilator:15379} Rehab Therapies: {GEN THERAPY DISCIPLINE SCAL:8763115} Weight Bearing Status/Restrictions: {POD WEIGHT BEARIN} Other Medical Equipment (for information only, NOT a DME order): {Assistive Devices DME:79363} Other Treatments: Patient's personal belongings (please select all that are sent with patient): {HECTOR Patient Belongings:47121} RN SIGNATURE: {E-signature:57962} CASE MANAGEMENT/SOCIAL WORK SECTION Inpatient Status Date: Discharging to Facility/ Agency Name: [facility] Address: [address] [place] [address] Dialysis Facility (if applicable) Name: Address: Dialysis Schedule: Phone: Fax: Crew Caller/Pasteuriser Operator signature: {E-signature:84673} PHYSICIAN SECTION Name: Jacky Ellis Prognosis: {Rehab Prognosis:65197} Condition at Discharge: {Patient Condition:77060} Rehab Potential (if transferring to Rehab): {Rehab Prognosis:13340} Recommended Labs or Other Treatments After Discharge: The individual is being admitted to a nursing facility directly from an [facility] or a unit of a [facility] that is not operated by or licensed by [facility] under section 5119.14 or 5160-3-15.1 5 The individual requires the level of services provided by a nursing facility for the condition for which he or she was treated in the hospital and, Physician Certification: I certify the above information and transfer of Jacky Ellis is necessary for the continuing treatment of the diagnosis listed and that he requires {HECTOR Level of Care:30067} for {greater less than:58511} 30 days. Update Admission H&P: {HECTOR Changes in H&P:74640} PHYSICIAN SIGNATURE: {E-signature:63508} documented in this encounter [facility] 06-26-2024 Note Discharge Summary Jacky Ellis : 1950 ADMIT DATE: 06/21/2024 DISCHARGE DATE: 06/26/2024 ATTENDING PHYSICIAN: Antione Cardenas DO VISIT STATUS: Admission CODE STATUS: Full Code DISCHARGE/HOSPITAL DIAGNOSES: Patient Active Problem List Diagnosis Essential (primary) hypertension Dissection of thoracic aorta (HCC) Dependence on supplemental oxygen Atrial fibrillation (HCC) Coronary artery fistula Arteriosclerosis of coronary artery Cardiomegaly Aortic root dilation (HCC) Aneurysm, thoracic aortic ([facility]) Acute on chronic systolic heart failure ([facility]) Acute blood loss as cause of postoperative anemia Hyperlipidemia Hyperlipidemia, unspecified Hx of CABG HFrEF (heart failure with reduced ejection fraction) ([facility]) Heart failure, unspecified (HCC) Fatigue Scoliosis/kyphoscoliosis Scoliosis, unspecified Right bundle-branch block Presence of other vascular implants and grafts Postoperative anemia Orthostatic hypotension Obesity, Class I, BMI 30-34.9 Obesity with body mass index 30 or greater Type II diabetes mellitus ([facility]) Newly diagnosed diabetes ([facility]) Lumbar radiculitis Low back pain Localized osteoarthritis of left shoulder Insomnia, unspecified Increased glucose level Acute renal failure ([facility]) Cellulitis Type 2 diabetes mellitus with diabetic chronic kidney disease ([facility]) Chronic kidney disease, stage 2 (mild) Stage 2 chronic kidney disease Chronic pain Disability of walking Dizziness and giddiness Lack of coordination Obstructed umbilical hernia Thrombocytopenia, unspecified (HCC) Spinal stenosis, lumbar Incisional hernia without obstruction or gangrene Incisional hernia without obstruction or gangrene Principal Problem: Incisional hernia without obstruction or gangrene BMI Classification: Estimated body mass index is 31.44 kg/m? as calculated from the following: Height as of this encounter: 6' 2.02 (1.88 m). Weight as of 05/29/24: 245 lb (111 kg). Obese (BMI 30.0-39.9) HOSPITAL COURSE: Jacky Ellis is a 73 y.o. male who presented to [facility] on 06/21/2024 for elective bariatric surgical procedure. This patient underwent an open recurrent incisional hernia repair with lysis of adhesions and implant of mesh on the day of admission. Wound vac was left in place. Patient worked with PT and was prepared for discharge POD #5. At the time of discharge patient's vital signs were within normal limits. Patient was voiding spontaneously, tolerating a diet, ambulating independently and having bowel function. Patient's pain was controlled with PO pain meds. Pt was discharged with instructions as follows. CONSULTANTS: PT/OT, dietitian SIGNIFICANT DIAGNOSTIC STUDIES: none DISCHARGE MEDICATIONS: Medication List CHANGE how you take these medications * oxyCODONE 5 MG immediate release tablet Commonly known as: Roxicodone What changed: Another medication with the same name was added. Make sure you understand how and when to take each. * oxyCODONE 5 MG immediate release tablet Commonly known as: Roxicodone Take 1 tablet (5 mg) by mouth every 6 hours as needed for severe pain (7-10) for up to 5 days. What changed: You were already taking a medication with the same name, and this prescription was added. Make sure you understand how and when to take each. * This list has 2 medication(s) that are the same as other medications prescribed for you. Read the directions carefully, and ask your doctor or other care provider to review them with you. CONTINUE taking these medications amiodarone 200 MG tablet Commonly known as: Pacerone atorvastatin 40 MG tablet Commonly known as: Lipitor Entresto 24-26 MG tablet Generic drug: sacubitril-valsartan Xarelto 15 MG tablet Generic drug: rivaroxaban ASK your doctor about these medications bumetanide 1 MG tablet Commonly known as: Bumex carvedilol 25 MG tablet Commonly known as: Coreg Farxiga 10 MG tablet Generic drug: dapagliflozin HYDROcodone-acetaminophen 7.5-325 MG tablet Commonly known as: [place] Where to Get Your Medications These medications were sent to [facility] [address] [place] [address] Hours: Wednesday to Wednesday 10 am to 6 pm oxyCODONE 5 MG immediate release tablet DIET: GI soft, easy to chew ACTIVITY: No driving while on narcotic pain medication. No heavy lifting. No strenuous activity. Instructions to proceed will be provided during outpatient follow up. WOUND CARE: keep wound clean and dry DISPOSITION: Home FACILITY/HOME CARE AGENCY NAME: N/A Follow up with: Antione Cardenas DO in 1-2 weeks PCP: Hoda Grayson in 1-2 weeks SIGNED: Gege Araujo DO This note may have been dictated using [employer] Edition 2.6 and/or [employer] Voice Recognition Feature. The document was proofread; however, unrecognized voice recognition podiatrist errors may be present. [facility] 06-26-2024 Note Formatting of this n ote might be different from the original. TCC received message from sx team regarding patient auth for IPR. TCC spoke with team. TCC in to speak with patient. TCC clarified with patient that his DCP is home with home care. Friend in room with patient and able to transport patient home. Patient is agreeable to home care. Sx team, home care and RN secure message regarding patient choice. [facility] 06-26-2024 Note Formatting of this n ote might be different from the original. TCC received message from sx team regarding patient auth for IPR. TCC spoke with team. TCC in to speak with patient. TCC clarified with patient that his DCP is home with home care. Friend in room with patient and able to transport patient home. Patient is agreeable to home care. Sx team, home care and RN secure message regarding patient choice. [facility] 06-26-2024 History of Presen t illness Narrative Images from the original note were not included. PHYSICAL THERAPY [facility] Name/MRN: Jacky Ellis ([id number]) Date: 06/26/2024 Chart review completed this date. PT attempted. Pt with Medical Provider at this time. PT will continue to follow. Will re-attempt another time/date as schedule permits. Hayley Browne PTA Cosigned by Emily Gudino PT at 06/26/2024 1:07 PM EDT Nutrition Assessment Type and Reason for Visit: Initial (diet application support technician referral for supplement order) Nutrition Recommendations/Plan: Continue with easy to chew diet and Ensure HP TID (8 oz provides 160 kcals, 16 gm protein). Request a current weight when able. Document % of meals and oral nutrition supplement consume daily on flow sheets. Monitor weight, labs, I/O, skin assessment, BM, and overall nutritional status. RD will follow up. Malnutrition Assessment: Malnutrition Status: At risk for malnutrition Context: Acute Illness Findings of the 6 clinical characteristics of malnutrition: Energy Intake: 50% or less of estimated energy requirements for 5 or more days (Per patient- not eating much for past 6 days.) Weight Loss: Unable to assess (Patient reports that he weighs 250# and gained about 20# since fall due to inactivity. Epic wts: 250# on 02/04/24, 235# on 04/20/24, 235# on 05/24/24. Request a current weight when able to further assess.) Body Fat Loss: No significant body fat loss (visually observed) Muscle Mass Loss: No significant muscle mass loss (visually observed) Fluid Accumulation: No significant fluid accumulation Neurosurgeon Strength: Not Performed Nutrition Assessment: 73 y.o. male with history of DC, HTN, a fib, CVA, scoliosis, arthritis, CABG. Patient with large recurrent incisional hernia (incarcerated). He underwent open incisional hernia repair with mesh on 06/21/24. Bowel movement on 06/25. Diet advanced to easy to chew today. RD spoke with patient this afternoon. Patient states not eating much for past 6 days. There are several unopened bottles of Ensure HP at bedside. Patient reports that he drank 3 bottles so far today. RD assisted opening another bottle for him. 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 He was consuming a protein that he mixed in a feed blender with milk and Ovaltine. RD verbally reviewed high protein food sources to support healing. No recent weights. Patient reports that he was 229# in the fall and gained 20# due to tear and not comfortable to be physical. He states his current weight is 250#. Estimated Daily Nutrient Needs: Energy Requirements Based On: Kcal/kg Weight Used for Energy Requirements: Adams Weight for Energy Calculation (kg): 86 kg Total Energy Requirements (kcals/day): 0039-1196 kcals per day (25-30) Weight Used for Protein Requirements: Adams Weight in Kg Used for Protein Requirements: 86 kg Estimated Total Protein (g/day): 103-120 gm per day (1.2-1.4) Estimated Daily Total Fluid (ml/day): Per MD Nutrition Related Findings: Jeremias = 20, abdomen soft, rounded, active bowel sounds, upper/lower dentures, no edema, I/O: -687 (since admit), JOELLE drains x 2 Wound Type: Wound Vac, Surgical Incision BMP: Recent Labs 06/23/24 0106 06/24/24 0019 06/25/24 0047 NA 136 137 137 K 4.3 4.8 4.8 CL 105 106 103 CO2 23 22* 25 BUN 31* 37* 29* CREATININE 1.30* 1.42* 1.32* GLUCOSE 132* 92 96 CALCIUM 9.0 8.7* 9.5 Lab Results Component Value Date HGBA1C 5.4 05/29/2024 Medications: acetaminophen, 1,000 mg, Oral, q8h amiodarone, 200 mg, Oral, BID atorvastatin, 40 mg, Oral, Daily bisacodyl, 10 mg, Rectal, Daily carvedilol, 25 mg, Oral, BID polyethylene glycol (PEG) 3350, 17 g, Oral, Daily rivaroxaban, 15 mg, Oral, Daily with evening meal sodium chloride 0.9%, 10 mL, IntraVENous, 2 times per day Current Nutrition Therapies: Adult diet Easy to Chew Current Oral Intake Average Meal Intake: 1-25%, 26-50%, 51-75%, 76-100% Average Supplements Intake: (Patient reports drinking 3 Ensure HP so far today. There are several unopened bottles in his room.) Anthropometric Measures: Height: 188 cm (6' 2.02) Admission Body Weight: 113 kg (250 lb) (stated on 06/25/24) Usual Body Weight: (Per review of Epic: 250# on 02/04/24, 235# on 04/20/24, 235# on 05/24/24) Adams Body Weight (lbs) (Calculated): 190 lbs Adams Body Weight (Kg) (Calculated): 86 kg Weight Adjustment For: No Adjustment BMI Categories: Obese Class 1 (BMI 30.0-34.9) Nutrition Diagnosis: Increased nutrient needs related to (skin integrity and healing) as evidenced by wounds Nutrition Interventions: Nutrition Education/Counseling: No recommendation at this time Coordination of Nutrition Care: Continue to monitor while inpatient Goals: Goals: PO intake 75% or greater, by next RD assessment Nutrition Monitoring and Evaluation: Behavioral-Environmental Outcomes: None Identified Food/Nutrient Intake Outcomes: Food and Nutrient Intake, Supplement Intake Physical Signs/Symptoms Outcomes: Biochemical Data, GI Status, Fluid Status or Edema, Meal Time Behavior, Nutrition Focused Physical Findings, Skin, Weight Discharge Planning: Too soon to determine Clair Narayanan RD Contact: *[phone] Images from the original note were not included. PHYSICAL THERAPY [facility] Treatment Note Name/MRN: Jacky Ellis ([id number]) Date of : 1950 Age: 73 y.o. [facility] Discharge Recommendation: IP Rehab Equipment Needed: (tbd) Prior Level of Function Prior Level of ADL Function: Independent Prior Level of Mobility: Independent; Device: Front wheeled walker, Rollator, and Straight Cane Prior Level of Transfers: Independent Assessment Patient progressing towards goals well, good motivation and effort throughout. Able to perform transfers with CGA and ambulates increased distance with FWW and CGA. Continues to demo general instability however good safety awareness overall. Most limited by weakness, decreased endurance, and fatigue. Currently recommending IP rehab at discharge. Patient is from home alone and must be independent prior to returning. Subjective Seated in recliner upon arrival, pleasant and agreeable to PT. Pain: 7/10 abdominal and back pain Medical Precautions: No active isolations Proper PPE donned/doffed in accordance with facility standards. Fall Risk: Dior Fall Risk Score: 70 (High Risk) Precautions/Restrictions: Lines/Drains/Airways: wound vac, bulb drain Overall Cognitive Status: WNL Overall Orientation Status: Oriented to Person Family/Caregiver Present: none Objective Transfers/Mobility Sit to stand: Contact Guard Stand to sit: Contact Guard Good UE placement and technique, no LOB Device(s) used: Front wheeled walker Ambulation Ambulation 1 Assistive device(s) used: Front wheeled walker Assist level: Contact Guard Distance (ft): 90ft x 2 Quality of gait: reciprocal stepping, narrow LAYLA, slow kavon, postural sway. Cues for proximity to device intermittently, requires standing rest breaks due to fatigue. Overall good safety awareness demonstrated. Balance During Session: Posture: fair Sitting - Static: Supervision Sitting - Dynamic: Supervision Standing - Static: Contact Guard Standing - Dynamic: Min Assist Exercises Exercises Hip Flexion: x15 reps B LE seated Knee Long Arc Quad: x15 reps B LE seated Ankle Pumps: x15 reps B LE seated Comments: Standing marches, mini squats, and heel raises x10 reps B LE at FWW Heart Failure on Admission Dyspnea: Yes Heart failure diagnosis: No Plan Continue acute PT per plan of care. Safety/Education Safety Safety Devices in place: All fall risk precautions in place, call light within reach, left in chair, and gait belt Restraints: No Education Gait, transfers, exercises, balance Outcome Measures AM-PAC AM-PAC Inpatient Mobility Raw Score (No Stairs) : 14 JH-HLM JH-HLM Score: Walked 25 ft or more (i.e. walked outside of room) Goals Patient Stated Goal: to get better and go home Encounter Problems Encounter Problems (Active) Mobility Patient will ambulate 50 feet with modified independence and least restrictive device in order to improve safety and independence with mobility. (Progressing) Start: 06/23/24 Expected End: 07/07/24 Pain - Adult Transfers Patient will perform bed mobility with modified independence in order to improve independence and prepare for out of bed mobility. (Not Addressed) Start: 06/23/24 Expected End: 07/07/24 Patient will complete functional transfer with least restrictive device with modified independence in order to prepare for ambulation. (Progressing) Start: 06/23/24 Expected End: 07/07/24 Therapy Time Individual Co-treatment Time In 1006 Time Out 1033 Minutes 27 Timed Code Treatment Minutes: 24 Minutes (ZAK Crandall) Variance: 3 Lillie Barnes PTA Cosigned by Emily Gudino PT at 06/25/2024 12:59 PM EDT Resident notes reflect my evaluation and review data. Seen on rounds with Dr. Sarah. Patient stable. Drains zero sanguinous. Patient tolerating diet. Pain is controlled. Will need rehab likely. Patient is a maximum assist even to stand. He s otherwise doing well for my surgical standpoint. Discharge planning to rehab soon. PAGING: The Acute Pain Service providers are available exclusively via [email or web address]. APS does not utilize pagers. 06/24/2024 Discharge Recommendations: Oxycodone 5-10mg PO q6h prn for mod / severe pain. Please note pt may require higher pain meds in acute post op period 2/2 baseline opioid tolerance Tylenol 1g PO 3x daily prn for mild pain Stool softeners Pain Management Adjuvants: 0700 --> 0700 06/23/24 Scheduled APAP 3g Gabapentin Lidocaine patches PRN Hydromorphone IV Methocarbamol Oxycodone 20mg Assessment / Pain Management Plan: Recommendations made, will sign off at this time. Thank you for inviting us to participate in the care of this patient. Acute Postsurgical Abdominal pain Multimodal pain regimen: BLOCK: TAP 06/21/24 Continue Acetaminophen 1,000 mg po q8h scheduled ATC. Cont Hydromorphone 0.25 mg - 0.5 mg IVP qh4 prn moderate to severe breakthrough pain. Please utilize oral medications first. Continue Oxycodone 5 - 10 mg po q4h prn moderate to severe breakthrough pain. Continue tizanidine 4 mg Q 6 hours PRN for muscle spasms, per patient request Pt requesting information regarding newly approved non opioid Journavx for treatment of acute pain. Medication currently not available to order inpatient. Continue Naloxone 0.4 mg IVP prn opioid reversal. PRN if respiratory rate is less than 6/min and patient is difficult to arouse then notify physician STAT. Mix 9 mL of sodium chloride 0.9% with 0.4 mg (1 mL) of naloxone (NARCAN) in 10 mL syringe. (Note: dilution is 0.04 mg/mL) Give 0.08 mg (2 mL of special dilution), slow IV push, repeat up to 0.4 mg (10 mL) or until patient is responsive to physical stimulation and respiratory rate is equal to or greater than 6 breaths/min. Continue to observe, if no response within 3 minutes of administration of 0.4 mg (10 mL) total, repeat dose (0.4 mg as administered previously). Incisional hernia without obstruction or gangrene Pt is s/p open incisional hernia repair with mesh 06/21/24 See #1 The patient's medical history and physical assessment, medications, allergies, patient's current medical condition, imaging, and labs were reviewed as part of this consultation. Patient's Medications have been reviewed. PMH reviewed below Opioid Use, Acute on Chronic Reviewed and educated patient on responsible use of opioids: after surgery, it can be normal to experience pain. If it is mild and you can move about without great difficulty or discomfort, you may not need to take pain medication. It is very important to take your pain medication only as needed. Avoiding excessive or unnecessary medication, will enable you to progress your activity each day to improve your muscle tone and movement, deep breathing, digestion, circulation and your body's ability to heal itself. OARRS reviewed for past two years. (Recurrent opiates RX filled) Pain Management: Starla Opioid Tolerant, Opioid Dependent Managed on [place] 10/325mg PO TID and has a spine pain device Constipation At risk for opioid induced constipation Patient currently receiving opioids for pain management necessitating a bowel regimen. Recommend initiating scheduled Sennakot-S 8.6/50mg, 1 tablet PO BID. Would also recommend Milk of Magnesia 400mg/5ml, administer 30mL by mouth daily PRN. Plan discussed with patient who appears to understand and agrees. Chief Complaint: hernia surgery HPI: We have been asked to see this 73 y.o. male for postoperative pain management s/p open incisional hernia repair with mesh 06/21/24 Reviewed EKG 06/21/24 JHOANA, no pages. On arrival, pt sitting in bedside chair. There is no bed in his room. States it is uncomfortable. Sleeping in chair. Abdominal pain is controlled. On CLD, - bm, +passing gas Denies f/c, cp, sob, n/v/d Pain Location: Abdomen Aggravating Factors: Moving Sedation score: 1: Awake and alert Pain Severity: mild Pain Quality: sharp Alleviating Factors: Rest/Pain medications REVIEW OF SYSTEMS: Pertinent positives as noted in the HPI. All other systems reviewed and negative. PHYSICAL EXAM: Vitals: BP 147/92 (BP Location: Right arm, Patient Position: Sitting) Pulse 82 Temp 36.9 C (98.4 F) (Temporal) Resp 18 SpO2 96% BMI Classification: not documented General appearance: No apparent distress, appears stated age and cooperative. HEENT: Normal cephalic, atraumatic without obvious deformity. Pupils equal, round, and reactive to light. Extra ocular muscles intact. Conjunctivae/corneas clear. Neck: No jugular venous distention. Trachea midline. Cardiovascular: Peripheral pulses 2+ and equal in all extremities Respiratory: Unlabored respiratory effort. On room air Musculoskeletal: No clubbing, cyanosis or edema bilaterally. Full ROM of all extremities. Skin: Skin color, texture, turgor normal. Surgical incision not able to assess, pt in abdominal binder Neurologic: Neurovascularly intact without any focal sensory/motor deficits. Cranial nerves: II-XII intact, grossly non-focal. Psychiatric: Alert and orientedx3, thought content appropriate, normal insight ? Labs: Lab Results Component Value Date WBC 6.3 06/24/2024 HGB 15.4 06/24/2024 HCT 46.3 06/24/2024 MCV 95.7 06/24/2024 PLT 118 (L) 06/24/2024 Lab Results Component Value Date NA 137 06/24/2024 K 4.8 06/24/2024 CL 106 06/24/2024 CO2 22 (L) 06/24/2024 BUN 37 (H) 06/24/2024 CREATININE 1.42 (H) 06/24/2024 GLUCOSE 92 06/24/2024 CALCIUM 8.7 (L) 06/24/2024 PROT 7.0 02/04/2024 BILITOT 0.8 02/04/2024 ALKPHOS 127 02/04/2024 AST 24 02/04/2024 ALT 24 02/04/2024 AGRATIO 1.6 02/04/2024 GLOB 2.7 02/04/2024 PAGING: The Acute Pain Service providers are available exclusively via [email or web address]. [facility]PS does not utilize pagers. paged by nurse that patient wanted to leave AMA. At bedside patient states that the hospital bed has been hurting his back. States he has been dealing with back pain for many years and the hospital bed is only making it worse. After speaking to the patient for a good amount of time he is understandable. Patient has not eaten anything since breakfast. He ended up ordering a yogurt which she still has not eaten. Explained to the patient that he needs good nutrition to repair his big wound. PT and OT worked with the patient today and recommended IP rehab. Patient needed to nursing staff to help him get to the bathroom. Explained to the patient that if he is needing multiple people to help him move around, then he needs help reconditioning his muscles at a facilty. Pt is agreeable. Ordered a new bed. Nutrition rescreen completed. Patient referred to the Dietitian due to supplement order placed. JOANNA Landaverde Images from the original note were not included. PAGING: The Acute Pain Service providers are available exclusively via [email or web address]. [facility] does not utilize pagers. 06/23/2024 Lab Results Component Value Date CREATININE 1.30 (H) 06/23/2024 CREATININE 1.46 (H) 02/04/2024 AST 24 02/04/2024 ALT 24 02/04/2024 Discharge Recommendations: Pending Pain Management Adjuvants: 0700 --> 0700 06/21/2024 06/22/24 Scheduled APAP 1 g 3 g PRN Hydromorphone IV 3 0.5 mg tizanidine 8 mg Oxycodone 20 mg 40 mg Assessment / Pain Management Plan: Will follow. Acute Postsurgical Abdominal pain Multimodal pain regimen: BLOCK: n/a Continue Acetaminophen 1,000 mg po q8h scheduled ATC. Liver enzymes WNL, last checked: above 02/04/24 Decrease dose of IV to Hydromorphone 0.25 mg - 0.5 mg IVP qh4 prn moderate to severe breakthrough pain. Please utilize oral medications first. Continue Oxycodone 5 - 10 mg po q4h prn moderate to severe breakthrough pain. Continue tizanidine 4 mg Q 6 hours PRN for muscle spasms, per patient request Pt requesting information regarding newly approved non opioid Journavx for treatment of acute pain. Medication currently not available to order inpatient. Continue Naloxone 0.4 mg IVP prn opioid reversal. PRN if respiratory rate is less than 6/min and patient is difficult to arouse then notify physician STAT. Mix 9 mL of sodium chloride 0.9% with 0.4 mg (1 mL) of naloxone (NARCAN) in 10 mL syringe. (Note: dilution is 0.04 mg/mL) Give 0.08 mg (2 mL of special dilution), slow IV push, repeat up to 0.4 mg (10 mL) or until patient is responsive to physical stimulation and respiratory rate is equal to or greater than 6 breaths/min. Continue to observe, if no response within 3 minutes of administration of 0.4 mg (10 mL) total, repeat dose (0.4 mg as administered previously). Incisional hernia without obstruction or gangrene Pt is s/p open incisional hernia repair with mesh 06/21 See #1 Opioid tolerant, dependent Patient prescribed [place] 10/325 TID Constipation At risk for opioid induced constipation Patient currently receiving opioids for pain management necessitating a bowel regimen. Recommend initiating scheduled Sennakot-S 8.6/50mg, 1 tablet PO BID. Would also recommend Milk of Magnesia 400mg/5ml, administer 30mL by mouth daily PRN. Opioid Use, Acute on Chronic Reviewed and educated patient on responsible use of opioids: after surgery, it can be normal to experience pain. If it is mild and you can move about without great difficulty or discomfort, you may not need to take pain medication. It is very important to take your pain medication only as needed. Avoiding excessive or unnecessary medication, will enable you to progress your activity each day to improve your muscle tone and movement, deep breathing, digestion, circulation and your body's ability to heal itself. OARRS reviewed for past two years. (Recurrent opiates RX filled) [x] Patient's OARRS report (PDMP) have been reviewed. Pain Management: Starla Plan discussed with patient who appears to understand and agrees. Subjective: We have been asked to see this 73 y.o. male for acute post operative pain management s/p open incisional hernia repair with mesh 06/21 Reviewed ECG 06/21/24 DARYLEON, no pages. On arrival, pt lying in bed. Pt appears well, comfortable. States he just worked with PT and is tired, slept poorly overnight. He is tolerating clear liquid diet, denies flatus. Denies vomiting. Continues to c/o intermittent abdominal pain, lower back pain. Patient educated on pain regimen, aware that oxycodone po, hydromorphone IV, tizanidine are PRN and patient must ask for these medications when needed. Educated patient to utilize oral pain medications as first line and reserve IV pain medications for severe breakthrough pain. Pt is realistic about pain control: Not all pain will be taken away, but pain should be tolerable/manageable with current regimen. Pt instructed to have staff page APS if pain becomes uncontrolled when utilizing present regimen. Pt agreeable, denies further questions. PMH reviewed below Pain Location: Back Aggravating Factors: Moving Sedation score: 1: Awake and alert Pain Severity: moderate Pain Quality: tender Alleviating Factors: Rest/Pain medications The patient's medical history and physical assessment, medications, allergies, patient's current medical condition, imaging, and labs were reviewed as part of this consultation. [x] Patient's Medications have been reviewed. Review of Systems Constitutional: Negative for chills and fever. HENT: Negative for trouble swallowing. Eyes: Negative for visual disturbance. Respiratory: Negative for shortness of breath. Cardiovascular: Negative for chest pain. Gastrointestinal: Positive for abdominal pain (surgical). Negative for nausea and vomiting. Musculoskeletal: Positive for back pain (chronic). Negative for arthralgias. Skin: Positive for wound (surgical). Neurological: Negative for dizziness and headaches. Psychiatric/Behavioral: Negative for confusion. The patient is not nervous/anxious. Physical Exam Vitals and nursing note reviewed. Constitutional: General: He is not in acute distress. HENT: Head: Normocephalic and atraumatic. Eyes: General: Vision grossly intact. Cardiovascular: Rate and Rhythm: Normal rate. Pulmonary: Effort: Pulmonary effort is normal. Abdominal: Palpations: Abdomen is soft. Tenderness: There is abdominal tenderness. Musculoskeletal: General: Tenderness (chronic back pain) present. Normal range of motion. Cervical back: Normal range of motion. Skin: General: Skin is warm and dry. Neurological: Mental Status: He is alert and oriented to person, place, and time. Psychiatric: Mood and Affect: Mood normal. Behavior: Behavior normal. Social History Tobacco Use Smoking Status Former Current packs/day: 0.00 Average packs/day: 1 pack/day for 5.0 years (5.0 ttl pk-yrs) Types: Cigarettes Start date: 1969 Quit date: 1974 Years since quittin.2 Smokeless Tobacco Never Social History Substance and Sexual Activity Alcohol Use Not Currently Comment: OCC TWICE A MONTH Social History Substance and Sexual Activity Drug Use Not Currently Objective Findings: Vital signs: Blood pressure 97/61, pulse 54, temperature 37.3 C (99.2 F), temperature source Temporal, resp. rate 19, SpO2 94%. Allergies: Dapagliflozin and Penicillins Past Medical History: Diagnosis Date Arthritis Back pain lower Heart attack (HCC) Hypertension Lobar pneumonia, unspecified organism (HCC) 12/04/2020 Scoliosis Stroke ([facility]) 2020 patient denies h/o CVA Past Surgical History: Procedure Laterality Date ABLATION FOR ATRIAL FIBRILLATION (HISTORICAL) CARDIAC SURGERY 2020 COLONOSCOPY CORONARY ARTERY BYPASS GRAFT DENTAL SURGERY HERNIA REPAIR Right 1958 [place] OTHER SURGICAL HISTORY 06/21/2024 OPEN INCISIONAL HERNIA REPAIR WITH MESH RT/LT HEART CATHETERS (HISTORICAL) TRIPLE BYPASS THREE VALUES SHOULDER SURGERY SMALL INTESTINE SURGERY 08/2022 SBR SPINAL CORD STIMULATOR IMPLANT 2022 TONSILLECTOMY 1960 TOTAL SHOULDER ARTHROPLASTY UMBILICAL HERNIA REPAIR 08/2022 [place] Family History Problem Relation Name Age of Onset Cancer Mother Cancer Father Patient Active Problem List Diagnosis Essential (primary) hypertension Dissection of thoracic aorta (HCC) Dependence on supplemental oxygen Atrial fibrillation (HCC) Coronary artery fistula Arteriosclerosis of coronary artery Cardiomegaly Aortic root dilation (HCC) Aneurysm, thoracic aortic (HCC) Acute on chronic systolic heart failure (HCC) Acute blood loss as cause of postoperative anemia Hyperlipidemia Hyperlipidemia, unspecified Hx of CABG HFrEF (heart failure with reduced ejection fraction) (HCC) Heart failure, unspecified (HCC) Fatigue Scoliosis/kyphoscoliosis Scoliosis, unspecified Right bundle-branch block Presence of other vascular implants and grafts Postoperative anemia Orthostatic hypotension Obesity, Class I, BMI 30-34.9 Obesity with body mass index 30 or greater Type II diabetes mellitus (HCC) Newly diagnosed diabetes (HCC) Lumbar radiculitis Low back pain Localized osteoarthritis of left shoulder Insomnia, unspecified Increased glucose level Acute renal failure (HCC) Cellulitis Type 2 diabetes mellitus with diabetic chronic kidney disease (HCC) Chronic kidney disease, stage 2 (mild) Stage 2 chronic kidney disease Chronic pain Disability of walking Dizziness and giddiness Lack of coordination Obstructed umbilical hernia Thrombocytopenia, unspecified (HCC) Spinal stenosis, lumbar Incisional hernia without obstruction or gangrene PAGING: The Acute Pain Service providers are available exclusively via [email or web address]. APS does not utilize pagers. Images from the original note were not included. OCCUPATIONAL THERAPY [facility] Initial Evaluation Name/MRN: Jacky Ellis ([id number]) Evaluation Date: 06/23/2024 Date of : 1950 Admission Date: 06/21/2024 5:15 AM Age: 73 y.o. Room[facility]: [facility] Discharge Recommendation: IP Rehab Assessment IMPRESSION: Pt presented for open incisional hernia repair with mesh on 06/21/24. Pt reports being previously IND with ADLs, mobility, and transfers. Currently, pt CGA-Ce for transfers and mobility and supervision-total assist for ADLs. OT recommending IPR to improve independence with ADLs, pt agreeable to recommendation. Admitting Diagnosis: incisional hernia Performance Deficits /Impairments: Increased Pain, Decreased Functional Mobility, Decreased ADL status, Decreased Strength, and Decreased Endurance Prognosis: Good Decision Making: Low Complexity Subjective Pt supine in bed, required min encouragement but eventually agreeable to OT eval. Pain: Contreras-[place]anson Pain Ratin = Hurts whole lot Pain Location: abdomen Past Medical History: Past Medical History: Diagnosis Date Arthritis Back pain lower Heart attack (HCC) Hypertension Lobar pneumonia, unspecified organism (HCC) 12/04/2020 Scoliosis Stroke ([facility]) 2020 patient denies h/o CVA Past Surgical History: Past Surgical History: Procedure Laterality Date ABLATION FOR ATRIAL FIBRILLATION (HISTORICAL) CARDIAC SURGERY 2020 COLONOSCOPY CORONARY ARTERY BYPASS GRAFT DENTAL SURGERY HERNIA REPAIR Right 1958 [place] OTHER SURGICAL HISTORY 06/21/2024 OPEN INCISIONAL HERNIA REPAIR WITH MESH RT/LT HEART CATHETERS (HISTORICAL) TRIPLE BYPASS THREE VALUES SHOULDER SURGERY SMALL INTESTINE SURGERY 08/2022 SBR SPINAL CORD STIMULATOR IMPLANT 2022 TONSILLECTOMY 1960 TOTAL SHOULDER ARTHROPLASTY UMBILICAL HERNIA REPAIR 08/2022 [place] Admission Diagnosis: Patient Active Problem List Diagnosis Date Noted Incisional hernia without obstruction or gangrene 06/21/2024 Acute renal failure (HCC) 02/03/2024 Stage 2 chronic kidney disease 02/03/2024 Disability of walking 02/03/2024 Lack of coordination 02/03/2024 Spinal stenosis, lumbar 02/03/2024 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 Arteriosclerosis of coronary artery 01/06/2024 Aortic root dilation ([facility]) 01/06/2024 Aneurysm, thoracic aortic ([facility]) 01/06/2024 Hyperlipidemia 01/06/2024 Hx of CABG 01/06/2024 HFrEF (heart failure with reduced ejection fraction) ([facility]) 01/06/2024 Fatigue 01/06/2024 Scoliosis/kyphoscoliosis 01/06/2024 Right bundle-branch block 01/06/2024 Postoperative anemia 01/06/2024 Obesity with body mass index 30 or greater 01/06/2024 Type II diabetes mellitus ([facility]) 01/06/2024 Newly diagnosed diabetes ([facility]) 01/06/2024 Lumbar radiculitis 01/06/2024 Increased glucose level 01/06/2024 Obstructed umbilical hernia 12/21/2023 Chronic pain 09/16/2023 Dizziness and giddiness 09/16/2023 Localized osteoarthritis of left shoulder 12/25/2021 Obesity, Class I, BMI 30-34.9 12/24/2021 Cellulitis 12/05/2021 Heart failure, unspecified ([facility]) 12/20/2020 Essential (primary) hypertension 12/18/2020 Atrial fibrillation (HCC) 12/18/2020 Cardiomegaly 12/18/2020 Orthostatic hypotension 12/18/2020 Dissection of thoracic aorta ([facility]) 12/04/2020 Dependence on supplemental oxygen 12/04/2020 Acute on chronic systolic heart failure (HCC) 12/04/2020 Acute blood loss as cause of postoperative anemia 12/04/2020 Hyperlipidemia, unspecified 12/04/2020 Scoliosis, unspecified 12/04/2020 Presence of other vascular implants and grafts 12/04/2020 Low back pain 12/04/2020 Insomnia, unspecified 12/04/2020 Type 2 diabetes mellitus with diabetic chronic kidney disease (HCC) 12/04/2020 Chronic kidney disease, stage 2 (mild) 12/04/2020 Thrombocytopenia, unspecified (HCC) 12/04/2020 Medical Precautions: No active isolations Proper PPE donned/doffed in accordance with facility standards. Fall Risk: Dior Fall Risk Score: 70 (High Risk) Precautions/Restrictions: Lines/Drains/Airways: wound vac, bulb drain Family/Caregiver Present: none Overall Cognitive Status: WFL Overall Orientation Status: Oriented x4 Social/Functional History Pt reports living alone in a one story home. Pt has a walk in shower with bench, grab bars, and raised toilet seat. Pt has rollator, FWW, and cane at home from previous surgeries, but was not using a device for ambulation prior to this admission. Prior Level of Function Prior Level of ADL Function: Independent Prior Level of Mobility: Independent; Device: None Prior Level of Transfers: Independent Objective ADLs LE Dressing: Dependent, Pt unable to reach B feet to doff/don socks d/t abdominal drain and pain. OT offered education on AE, pt declined saying he has a nurse office and sock aid at home and he does not want to take his socks off. Toileting: Contact Guard, Pt required CGA for toilet transfer. Pt able to manage gown and void with supervision. Upper Extremity Assessment AROM: WFL PROM: Not assessed this session Strength: WFL Bed Mobility Supine to sit: SBA Sit to supine: Min Assist, for LE to clear EOB HOB Elevated Use of bed rail(s) Transfers/Mobility Sit to stand: Min Assist Stand to sit: Contact Guard Toilet: Contact Guard Functional mobility: Contact Guard Pt completed sit to stand from EOB with eC and extended time for trunk elevation. Pt required cues for safe hand placement during transfer. Pt ambulated functional household distance to bathroom using FWW and CGA with no LOB or SOB. Pt completed toilet transfer with CGA and use of grab bars which pt reports having at home. Pt ambulated back to EOB with FWW and CGA, completed stand to sit with CGA. Pt reports standing is feeling much better and stronger. Pt with minimal SOB upon return to bed, relieved by lying down. Device(s) used: Front wheeled walker Heart Failure on Admission Dyspnea: Yes Heart failure diagnosis: Yes AM-PAC AM-PAC Inpatient Daily Activity Raw Score: 18 ADL Inpatient CMS G-Code Modifier: CK Plan Pt would benefit from skilled acute OT services to address Strengthening, Self-Care/ADL Training, Functional Mobility Training, Endurance Training, and Pain Management. Frequency: 4x/week for 4 weeks Barriers: Pain, Decreased endurance, and Limited family support Safety/Education Safety Safety Devices in place: call light within reach, left in bed, and no alarms engaged upon entry Restraints: No Education Education Given To: patient Education Provided: OT Role, Plan of Care, ADL Adaptive Strategies, Transfer Training, and Discharge Recommendations Education Method: Verbal Barriers to Learning: None Education Outcome: Goals Patient Stated Goal: less pain Encounter Problems Encounter Problems (Active) Balance Patient will maintain dynamic standing balance for 3 minutes with modified independence in order to demonstrate decreased risk of falling. Start: 06/23/24 Expected End: 07/21/24 Dressings Lower Extremities Patient will dress lower body mod I with AE PRN Start: 06/23/24 Expected End: 07/21/24 Grooming Patient will complete daily grooming tasks while standing at sink mod I Start: 06/23/24 Expected End: 07/21/24 Mobility Patient will demonstrate functional ambulation mod I Start: 06/23/24 Expected End: 07/21/24 Toileting Patient will complete toileting tasks at standard toilet with modified independence. Start: 06/23/24 Expected End: 07/21/24 Transfers Patient will complete functional transfer with modified independence in order to prepare for ambulation. Start: 06/23/24 Expected End: 07/21/24 Patient will perform bed mobility with modified independence in order to improve independence and prepare for out of bed mobility. Start: 06/23/24 Expected End: 07/21/24 Therapy Time Individual Co-Treatment Co-Evaluation Time In 1130 Time Out 1148 Minutes 18 Karolina Goncalves S/OT Patient's Occupational Therapy Plan of Care supervision is transferred to a [facility] Occupational Therapist. Goals and/or treatment plan was established in collaboration with patient/family/other representatives. Cosigned by Barbara Felipe OT at 06/23/2024 2:40 PM EDT Images from the original note were not included. PHYSICAL THERAPY [facility] Initial Evaluation Name/MRN: Jacky Ellis ([id number]) Evaluation Date: 06/23/2024 Date of : 1950 Admission Date: 06/21/2024 5:15 AM Age: 73 y.o. Room[facility]Bed: [facility] A Discharge Recommendation: IP Rehab Equipment Needed: (tbd) Assessment IMPRESSION: The pt is admitted with an incisional hernia with repair. He will continue to benefit from therapy for his functional deficits and to improve his overall functional capacity. The pt would be able to tolerate 3 hours of therapy a day and IP REHAB is recommended at discharge. Min to mod assist was required for mobility this date. Rest breaks were needed due to limited endurance. The pt is not currently safe to return home and is a fall risk. He is currently unable to ambulate a home going distance. Admitting Diagnosis: incisional hernia with repair. Prognosis: good Performance Deficits /Impairments: Increased Pain, Decreased Functional Mobility, Decreased ADL status, Decreased Strength, Decreased Endurance, Decreased Balance, Decreased ROM, and Decreased Posture Decision Making: Low Complexity Subjective Pt in chair and agreed to PT. Pt would like to try to walk. Pain: 8/10 abdomen Past Medical History: Past Medical History: Diagnosis Date Arthritis Back pain lower Heart attack (HCC) Hypertension Lobar pneumonia, unspecified organism (HCC) 12/04/2020 Scoliosis Stroke (HCC) 2020 patient denies h/o CVA Past Surgical History: Past Surgical History: Procedure Laterality Date ABLATION FOR ATRIAL FIBRILLATION (HISTORICAL) CARDIAC SURGERY 2020 COLONOSCOPY CORONARY ARTERY BYPASS GRAFT DENTAL SURGERY HERNIA REPAIR Right 1958 RIH OTHER SURGICAL HISTORY 06/21/2024 OPEN INCISIONAL HERNIA REPAIR WITH MESH RT/LT HEART CATHETERS (HISTORICAL) TRIPLE BYPASS THREE VALUES SHOULDER SURGERY SMALL INTESTINE SURGERY 08/2022 SBR SPINAL CORD STIMULATOR IMPLANT 2022 TONSILLECTOMY 1960 TOTAL SHOULDER ARTHROPLASTY UMBILICAL HERNIA REPAIR 08/2022 [place] Admission Diagnosis: Patient Active Problem List Diagnosis Date Noted Incisional hernia without obstruction or gangrene 06/21/2024 Acute renal failure (HCC) 02/03/2024 Stage 2 chronic kidney disease 02/03/2024 Disability of walking 02/03/2024 Lack of coordination 02/03/2024 Spinal stenosis, lumbar 02/03/2024 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 Arteriosclerosis of coronary artery 01/06/2024 Aortic root dilation (HCC) 01/06/2024 Aneurysm, thoracic aortic ([facility]) 01/06/2024 Hyperlipidemia 01/06/2024 Hx of CABG 01/06/2024 HFrEF (heart failure with reduced ejection fraction) ([facility]) 01/06/2024 Fatigue 01/06/2024 Scoliosis/kyphoscoliosis 01/06/2024 Right bundle-branch block 01/06/2024 Postoperative anemia 01/06/2024 Obesity with body mass index 30 or greater 01/06/2024 Type II diabetes mellitus (HCC) 01/06/2024 Newly diagnosed diabetes ([facility]) 01/06/2024 Lumbar radiculitis 01/06/2024 Increased glucose level 01/06/2024 Obstructed umbilical hernia 12/21/2023 Chronic pain 09/16/2023 Dizziness and giddiness 09/16/2023 Localized osteoarthritis of left shoulder 12/25/2021 Obesity, Class I, BMI 30-34.9 12/24/2021 Cellulitis 12/05/2021 Heart failure, unspecified (HCC) 12/20/2020 Essential (primary) hypertension 12/18/2020 Atrial fibrillation (HCC) 12/18/2020 Cardiomegaly 12/18/2020 Orthostatic hypotension 12/18/2020 Dissection of thoracic aorta (HCC) 12/04/2020 Dependence on supplemental oxygen 12/04/2020 Acute on chronic systolic heart failure (HCC) 12/04/2020 Acute blood loss as cause of postoperative anemia 12/04/2020 Hyperlipidemia, unspecified 12/04/2020 Scoliosis, unspecified 12/04/2020 Presence of other vascular implants and grafts 12/04/2020 Low back pain 12/04/2020 Insomnia, unspecified 12/04/2020 Type 2 diabetes mellitus with diabetic chronic kidney disease (HCC) 12/04/2020 Chronic kidney disease, stage 2 (mild) 12/04/2020 Thrombocytopenia, unspecified (HCC) 12/04/2020 Medical Precautions: No active isolations Proper PPE donned/doffed in accordance with facility standards. Fall Risk: Dior Fall Risk Score: 70 (High Risk) Precautions/Restrictions: Lines/Drains/Airways: wound vac, drains Family/Caregiver Present: none Overall Cognitive Status: WFL Overall Orientation Status: Oriented x4 Vision: WFL Hearing: WFL Social/Functional History Patient admitted from home. Lives With: Alone Type of Home: single family home Home Layout: Single Level Home Home Access: Ramped Entrance Bathroom Shower/Tub: Walk in Shower and seat Toilet: riser on toilet Home Equipment: front wheeled walker, rollator, and cane Homemaking Responsibilities: Independent Receives Help From: Friend(s) Active Outpatient Pharmacy Manager: Prior Level of Function Prior Level of ADL Function: Independent Prior Level of Mobility: Independent; Device: Front wheeled walker, Rollator, and Straight Cane Prior Level of Transfers: Independent Objective Lower Extremity Assessment AROM: pt unable to achieve terminal knee extension, bilat hip flexion, knee flexion and DF and PF are WFL. Strength: WFL Sensation: WFL Balance: Balance During Session: Posture: fair Sitting - Static: Modified Independent Sitting - Dynamic: SBA Standing - Static: Min Assist Standing - Dynamic: Min Assist Bed Mobility: Sit to supine: Mod Assist Scooting: Mod Assist HOB Elevated Use of bed rail(s) Log roll Transfers Sit to stand: Min Assist Stand to sit: Min Assist One trial from chair, 2 trials from EOB, all to FWW, cues for hand placement Ambulation Ambulation 1 Assistive device(s) used: Front wheeled walker Assist level: Min Assist Distance (ft): 20 Quality of gait: flexed posture, head down, flexed knees, decreased step length and height, decreased velocity, increased weight on UE, Ambulation 2 Assistive device(s) used: Front wheeled walker Assist level: Min Assist Distance (ft): 16 Quality of gait: flexed posture, head down, flexed knees, decreased step length and height, decreased velocity, increased weight on UE, cues for posture Ambulation 3 Assistive device(s) used: Front wheeled walker Assist level: Min Assist Distance (ft): 16 Quality of gait: flexed posture, head down, flexed knees, decreased step length and height, decreased velocity, increased weight on UE, cues for posture Tone: Normal Tone Upper Extremity: WFL Exercises Exercises Hip Flexion: seated june x 12 bilat Knee Long Arc Quad: x12 bilat Ankle Pumps: x12 bilat Upper Extremity: 12 bilat overhead reaches Comments: cues for posture provided with all exercise performance and pt encouraged to sit without use of back rest. Heart Failure on Admission Dyspnea: Yes Heart failure diagnosis: No Outcome Measures AM-PAC How much HELP from another person do you currently need Turning from your back to your side while in a flat bed without using bedrails?: A Little Moving from lying on your back to sitting on the side of a flat bed without using bedrails?: A Lot Moving to and from a bed to a chair (including a wheelchair)?: A Little Standing up from a chair using your arms (wheelchair or bedside chair)?: A Little Walking in a hospital room?: A Little Stair climbing assessed?: No AM-PAC Inpatient Mobility Raw Score (No Stairs) : 14 [facility] Score: Walked 25 ft or more (i.e. walked outside of room) Plan Pt would benefit from skilled acute PT services to address Strengthening, ROM, Gait Training, Balance Training, Self-Care/ADL Training, Functional Mobility Training, Endurance Training, Safety Education and Training, Stair Training, and Equipment Evaluation/Education. Frequency: 3x/week for 2 weeks Barriers: Pain, Impaired balance, Lower extremity weakness, Upper extremity weakness, Decreased endurance, and Long standing deficits Safety/Education Safety Safety Devices in place: call light within reach, left in bed, and no alarms engaged upon entry Restraints: No Education Education Given To: patient Education Provided: PT Role, PT Goals, Gait Training, Plan of Care, Precautions, and Transfer Training Education Method: Verbal Barriers to Learning: None Education Outcome: Verbalized Understanding and Continued Education Needed Goals Patient Stated Goal: to get better and go home Encounter Problems Encounter Problems (Active) Mobility Patient will ambulate 50 feet with modified independence and least restrictive device in order to improve safety and independence with mobility. Start: 06/23/24 Expected End: 07/07/24 Pain - Adult Transfers Patient will perform bed mobility with modified independence in order to improve independence and prepare for out of bed mobility. Start: 06/23/24 Expected End: 07/07/24 Patient will complete functional transfer with least restrictive device with modified independence in order to prepare for ambulation. Start: 06/23/24 Expected End: 07/07/24 Therapy Time Individual Co-Treatment Co-Evaluation Time In 1012 Time Out 1045 Minutes 33 Timed Code Treatment Minutes: 10 Minutes (one eval low complex, one gait) Catrina Jamison PT Patient's Physical Therapy Plan of Care supervision is transferred to a [facility] Physical Therapist. Goals and/or treatment plan was established in collaboration with patient/family/other representatives. Department of Surgery Daily Progress Note SUBJECTIVE: No acute events overnight. States he was unable to sleep due to bed being uncomfortable/MSK back pain, asking to go home. Tolerating full liquid diet. Pain controlled with medication. Denies passing gas, no bowel movement. Denies nausea, vomiting. ROS: Noted above unless otherwise mentioned OBJECTIVE: VITALS: Temp: [36.3 C (97.3 F)-37.6 C (99.6 F)] 36.3 C (97.3 F) Heart Rate: [57-97] 57 Resp: [12-16] 12 BP: (113-163)/(73-107) 121/80 INTAKE/OUTPUT: Reviewed in the EMR daily PHYSICAL EXAM: Gen: NAD, pain well controlled Heart: well perfused Lungs: symmetric chest rise, normal work of breathing Abd: soft, appropriately tender, non distended. Non rigid Skin: warm, well perfused, no obvious rashes, cellulitis or gross discoloration Lines: Wound vac in place good seal. 2x JOELLE drain in SS output LABS/IMAGING Reviewed in the EMR daily Current Inpatient Medications Scheduled Meds:acetaminophen, 1,000 mg, Oral, q8h amiodarone, 200 mg, Oral, BID atorvastatin, 40 mg, Oral, Daily carvedilol, 25 mg, Oral, BID enoxaparin, 40 mg, SubCUTAneous, Daily polyethylene glycol (PEG) 3350, 17 g, Oral, Daily sodium chloride 0.9%, 10 mL, IntraVENous, 2 times per day Continuous Infusions: PRN Meds:PRN medications: hydrALAZINE, HYDROmorphone OR HYDROmorphone, labetalol, naloxone, ondansetron ODT OR ondansetron, oxyCODONE OR oxyCODONE, sodium chloride, sodium chloride 0.9%, tiZANidine ASSESSMENT AND PLAN: 73 y.o. male s/p open incisional hernia repair with mesh 06/21 - Complaints of back and abd pain around incision site. APS consulted and following Pt wanted more info on novel non opoid pain med that just got approved. Will do some research and see if that is an options - Passed void trial this - Cont wound vac - cont 2 JOELLE drain upper 20cc and lower 10cc - Diet: FLD, maintain until passing gas regularly - PO pain medications for pain control - OOBA - DVT ppx with SCD's -holding home Xarelto (afib) - Dispo -pending clinical course Will discuss with Dr. Jaja Araujo DO 06/23/24 8:12 AM ATTESTATION The patient was seen and examined. I have reviewed the patients presentation, histories, imaging and serology studies. I agree with the above assessment and plan. Ab: appropriately tender to palpation over surgical sites. Incision/dressing is clean, dry, and intact. Patient is doing well this morning. Pain is well controlled. Labs and Imaging Reviewed. Continue diet. Supp today. Encourage up to chair, ambulation and IS. Await bowel function. I (Antione Cardenas) personally supervised the resident/fellow in the evaluation and development of a treatment plan for this patient including using nursing/ems notes. I personally discussed the review of systems and interviewed the patient along with performing a physical examination. In addition, I discussed the patient's condition and treatment options with them. I have also reviewed and agree with the past medical, family and social history unless otherwise noted and personally reviewed the imaging and labs. This note may be a delayed entry. All of the patient's questions were answered. The patient was seen and examined independently and relevant data reviewed by myself. A full chart review was performed. Department of Surgery Daily Progress Note SUBJECTIVE: No acute events overnight. Tolerating CLD. Pain controlled with medication. Denies passing gas, no bowel movement. Denies nausea, vomiting. Maria R removed this am. ROS: Noted above unless otherwise mentioned OBJECTIVE: VITALS: Temp: [36.1 C (97 F)-37 C (98.6 F)] 36.8 C (98.2 F) Heart Rate: [63-98] 68 Resp: [11-18] 16 BP: (111-155)/(69-106) 120/91 INTAKE/OUTPUT: Reviewed in the EMR daily PHYSICAL EXAM: Gen: NAD, pain well controlled Heart: well perfused Lungs: symmetric chest rise, normal work of breathing Abd: soft, appropriately tender, non distended. Non rigid Skin: warm, well perfused, no obvious rashes, cellulitis or gross discoloration LABS/IMAGING Reviewed in the EMR daily Current Inpatient Medications Scheduled Meds:acetaminophen, 1,000 mg, Oral, q8h amiodarone, 200 mg, Oral, BID atorvastatin, 40 mg, Oral, Daily polyethylene glycol (PEG) 3350, 17 g, Oral, Daily [Held by provider] sacubitril-valsartan, 1 tablet, Oral, BID sodium chloride 0.9%, 10 mL, IntraVENous, 2 times per day Continuous Infusions: PRN Meds:PRN medications: HYDROmorphone OR HYDROmorphone, naloxone, ondansetron ODT OR ondansetron, oxyCODONE OR oxyCODONE, sodium chloride, sodium chloride 0.9% ASSESSMENT AND PLAN: 73 y.o. male s/p open incisional hernia repair with mesh 06/21 - void trial this am - Diet: CLD, maintain until passing gas regularly - PO pain medications for pain control - OOBA - DVT ppx with SCD's -holding home Xarelto - Dispo -pending clinical course Will discuss with Dr. Jaja Araujo, 06/22/24 8:50 AM ATTESTATION The patient was seen and examined. I have reviewed the patients presentation, histories, imaging and serology studies. I agree with the above assessment and plan. Ab: appropriately tender to palpation over surgical sites. Incision/dressing is clean, dry, and intact. Patient is doing well this morning. Pain is well controlled. Labs and Imaging Reviewed. Start diet. Encourage up to chair, ambulation and IS. Restart home medications. Ok for dvt ppx. Hold xeralto for now. OK for FLD. Supp tomorrow. PT/OT. Will follow. Patient has obesity BMI31.5 and HFpEF. I (Antione Cardenas) personally supervised the resident/fellow in the evaluation and development of a treatment plan for this patient including using nursing/ems notes. I personally discussed the review of systems and interviewed the patient along with performing a physical examination. In addition, I discussed the patient's condition and treatment options with them. I have also reviewed and agree with the past medical, family and social history unless otherwise noted and personally reviewed the imaging and labs. This note may be a delayed entry. All of the patient's questions were answered. The patient was seen and examined independently and relevant data reviewed by myself. A full chart review was performed. documented in this encounter [facility] 06-26-2024 Note Department of Surger y Daily Progress Note SUBJECTIVE: Sleeping in chair. He has been working on his strength. Hpassing flatus and having BM. tolerating soft diet. Still planning for IP rehab. JOELLE drains 2x serosanguinous ROS: Noted above unless otherwise mentioned OBJECTIVE: VITALS: Temp: [36.4 ?C (97.6 ?F)-37.1 ?C (98.7 ?F)] 36.5 ?C (97.7 ?F) Heart Rate: [62-65] 62 Resp: [12-18] 12 BP: (108-142)/(69-91) 108/69 INTAKE/OUTPUT: Reviewed in the EMR daily PHYSICAL EXAM: Gen: NAD, pain well controlled Heart: well perfused Lungs: symmetric chest rise, normal work of breathing Abd: soft, appropriately tender, non distended. Non rigid. binder secure. Skin: warm, well perfused, no obvious rashes, cellulitis or gross discoloration Lines: Wound vac in place good seal. 2x JOELLE drain in SS output LABS/IMAGING Reviewed in the EMR daily Current Inpatient Medications Scheduled Meds:acetaminophen, 1,000 mg, Oral, q8h amiodarone, 200 mg, Oral, BID atorvastatin, 40 mg, Oral, Daily bisacodyl, 10 mg, Rectal, Daily carvedilol, 25 mg, Oral, BID lactated ringers, 500 mL, IntraVENous, Once polyethylene glycol (PEG) 3350, 17 g, Oral, Daily rivaroxaban, 15 mg, Oral, Daily with evening meal sodium chloride 0.9%, 10 mL, IntraVENous, 2 times per day Continuous Infusions: PRN Meds:PRN medications: hydrALAZINE, HYDROmorphone OR HYDROmorphone, labetalol, naloxone, ondansetron ODT OR ondansetron, oxyCODONE OR oxyCODONE, sodium chloride, sodium chloride 0.9%, tiZANidine ASSESSMENT AND PLAN: 73 y.o. male s/p open incisional hernia repair with mesh 06/21 - continued tenderness Complaints of back and abd around incision site. APS consulted and following - will discontinue RLQ JOELLE drain: 10cc SS output - cont RUQ: 20cc SS output - Cont wound vac changes MWF - Diet: cont on soft diet - PO pain medications for pain control - OOBA - DVT ppx with SCD's and xarelto - Dispo - pending approval to [facility] EVANSW Dr Jaja Briseno MD 06/26/24 7:33 AM ATTESTATION The patient was seen and examined. I have reviewed the patients presentation, histories, imaging and serology studies. I agree with the above assessment and plan. Ab: appropriately tender to palpation over surgical sites. Incision/dressing is clean, dry, and intact. Patient is doing well this morning. Pain is well controlled. Labs and Imaging Reviewed. Continue diet. Encourage up to chair, ambulation and IS. Plan for discharge home later today if patient continues to progress. ----- I (Antione Cardenas) personally supervised the resident/fellow in the evaluation and development of a treatment plan for this patient including using nursing/ems notes. I personally discussed the review of systems and interviewed the patient along with performing a physical examination. In addition, I discussed the patient's condition and treatment options with them. I have also reviewed and agree with the past medical, family and social history unless otherwise noted and personally reviewed the imaging and labs. This note may be a delayed entry. All of the patient's questions were answered. The patient was seen and examined independently and relevant data reviewed by myself. A full chart review was performed. [facility] 06-25-2024 Plan of care note Problem: Pain - Adult Goal: Verbalizes/displays adequate comfort level or baseline comfort level Outcome: Progressing Problem: Safety - Adult Goal: Free from fall injury Outcome: Progressing Problem: Problem Interventions Goal: Assess Nutritional Intake Outcome: Progressing [facility] 06-25-2024 Plan of care note Tolerating diet ambulating in room. Feels good. T [facility] 06-25-2024 Note Nutrition Assessment Type and Reason for Visit: Initial (diet application support technician referral for supplement order) Nutrition Recommendations/Plan: Continue with easy to chew diet and Ensure HP TID (8 oz provides 160 kcals, 16 gm protein). Request a current weight when able. Document % of meals and oral nutrition supplement consume daily on flow sheets. Monitor weight, labs, I/O, skin assessment, BM, and overall nutritional status. RD will follow up. Malnutrition Assessment: Malnutrition Status: At risk for malnutrition Context: Acute Illness Findings of the 6 clinical characteristics of malnutrition: Energy Intake: 50% or less of estimated energy requirements for 5 or more days (Per patient- not eating much for past 6 days.) Weight Loss: Unable to assess (Patient reports that he weighs 250# and gained about 20# since fall due to inactivity. Epic wts: 250# on 02/04/24, 235# on 04/20/24, 235# on 05/24/24. Request a current weight when able to further assess.) Body Fat Loss: No significant body fat loss (visually observed) Muscle Mass Loss: No significant muscle mass loss (visually observed) Fluid Accumulation: No significant fluid accumulation Neurosurgeon Strength: Not Performed Nutrition Assessment: 73 y.o. male with history of DC, HTN, a fib, CVA, scoliosis, arthritis, CABG. Patient with large recurrent incisional hernia (incarcerated). He underwent open incisional hernia repair with mesh on 06/21/24. Bowel movement on 06/25. Diet advanced to easy to chew today. RD spoke with patient this afternoon. Patient states not eating much for past 6 days. There are several unopened bottles of Ensure HP at bedside. Patient reports that he drank 3 bottles so far today. RD assisted opening another bottle for him. 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 He was consuming a protein that he mixed in a feed blender with milk and Ovaltine. RD verbally reviewed high protein food sources to support healing. No recent weights. Patient reports that he was 229# in the fall and gained 20# due to tear and not comfortable to be physical. He states his current weight is 250#. Estimated Daily Nutrient Needs: Energy Requirements Based On: Kcal/kg Weight Used for Energy Requirements: Adams Weight for Energy Calculation (kg): 86 kg Total Energy Requirements (kcals/day): 9627-7982 kcals per day (25-30) Weight Used for Protein Requirements: Adams Weight in Kg Used for Protein Requirements: 86 kg Estimated Total Protein (g/day): 103-120 gm per day (1.2-1.4) Estimated Daily Total Fluid (ml/day): Per MD Nutrition Related Findings: Jeremias = 20, abdomen soft, rounded, active bowel sounds, upper/lower dentures, no edema, I/O: -687 (since admit), JOELLE drains x 2 Wound Type: Wound Vac, Surgical Incision BMP: Recent Labs 06/23/24 0106 06/24/24 0019 06/25/24 0047 NA 136 137 137 K 4.3 4.8 4.8 CL 105 106 103 CO2 23 22* 25 BUN 31* 37* 29* CREATININE 1.30* 1.42* 1.32* GLUCOSE 132* 92 96 CALCIUM 9.0 8.7* 9.5 Lab Results Component Value Date HGBA1C 5.4 05/29/2024 Medications: acetaminophen, 1,000 mg, Oral, q8h amiodarone, 200 mg, Oral, BID atorvastatin, 40 mg, Oral, Daily bisacodyl, 10 mg, Rectal, Daily carvedilol, 25 mg, Oral, BID polyethylene glycol (PEG) 3350, 17 g, Oral, Daily rivaroxaban, 15 mg, Oral, Daily with evening meal sodium chloride 0.9%, 10 mL, IntraVENous, 2 times per day Current Nutrition Therapies: Adult diet Easy to Chew Current Oral Intake Average Meal Intake: 1-25%, 26-50%, 51-75%, 76-100% Average Supplements Intake: (Patient reports drinking 3 Ensure HP so far today. There are several unopened bottles in his room.) Anthropometric Measures: Height: 188 cm (6' 2.02) Admission Body Weight: 113 kg (250 lb) (stated on 06/25/24) Usual Body Weight: (Per review of Epic: 250# on 02/04/24, 235# on 04/20/24, 235# on 05/24/24) Adams Body Weight (lbs) (Calculated): 190 lbs Adams Body Weight (Kg) (Calculated): 86 kg Weight Adjustment For: No Adjustment BMI Categories: Obese Class 1 (BMI 30.0-34.9) Nutrition Diagnosis: Increased nutrient needs related to (skin integrity and healing) as evidenced by wounds Nutrition Interventions: Nutrition Education/Counseling: No recommendation at this time Coordination of Nutrition Care: Continue to monitor while inpatient Goals: Goals: PO intake 75% or greater, by next RD assessment Nutrition Monitoring and Evaluation: Behavioral-Environmental Outcomes: None Identified Food/Nutrient Intake Outcomes: Food and Nutrient Intake, Supplement Intake Physical Signs/Symptoms Outcomes: Biochemical Data, GI Status, Fluid Status or Edema, Meal Time Behavior, Nutrition Focused Physical Findings, Skin, Weight Discharge Planning: Too soon to determine Clair Narayanan RD Contact: *[phone] [facility] 06-25-2024 Note Department of Surger y Daily Progress Note SUBJECTIVE: Patient feeling better this morning. Able to sleep in chair. He has been working on his strength. He had two regular bowel movements. He is feeling hungry for more regular food, agreeable to soft diet. Still planning for IP rehab. JOELLE drains serosanguinous ROS: Noted above unless otherwise mentioned OBJECTIVE: VITALS: Temp: [36.2 ?C (97.1 ?F)-36.7 ?C (98 ?F)] 36.4 ?C (97.6 ?F) Heart Rate: [54-65] 65 Resp: [16-18] 18 BP: (123-142)/(78-91) 142/91 INTAKE/OUTPUT: Reviewed in the EMR daily PHYSICAL EXAM: Gen: NAD, pain well controlled Heart: well perfused Lungs: symmetric chest rise, normal work of breathing Abd: soft, appropriately tender, non distended. Non rigid. binder secure. Skin: warm, well perfused, no obvious rashes, cellulitis or gross discoloration Lines: Wound vac in place good seal. 2x JOELLE drain in SS output LABS/IMAGING Reviewed in the EMR daily Current Inpatient Medications Scheduled Meds:acetaminophen, 1,000 mg, Oral, q8h amiodarone, 200 mg, Oral, BID atorvastatin, 40 mg, Oral, Daily bisacodyl, 10 mg, Rectal, Daily carvedilol, 25 mg, Oral, BID enoxaparin, 40 mg, SubCUTAneous, Daily polyethylene glycol (PEG) 3350, 17 g, Oral, Daily sodium chloride 0.9%, 10 mL, IntraVENous, 2 times per day Continuous Infusions: PRN Meds:PRN medications: hydrALAZINE, HYDROmorphone OR HYDROmorphone, labetalol, naloxone, ondansetron ODT OR ondansetron, oxyCODONE OR oxyCODONE, sodium chloride, sodium chloride 0.9%, tiZANidine ASSESSMENT AND PLAN: 73 y.o. male s/p open incisional hernia repair with mesh 06/21 - Complaints of back and abd pain around incision site. APS consulted and following - suppository daily - Cont wound vac - cont 2 JOELLE drain - ss output - will discuss removal of deep drain with Dr Jaja dickey - Diet: adv to soft diet today - PO pain medications for pain control - OOBA - DVT ppx with SCD's and restarting xarelto today - Dispo - IPR when accepted Discussed with Dr Jenkins on for Dr Jaja Sarah MD 06/25/24 9:13 AM [facility] 06-25-2024 Plan of care note Patient states better pain control and he slept 4 hours last pm, wants food secure message sent to surgery. [facility] 06-24-2024 Plan of care note Problem: Pain - Adult Goal: Verbalizes/displays adequate comfort level or baseline comfort level 06/24/20242111 by Gris Decker RN Outcome: Progressing 06/24/20242111 by Gris Decker RN Outcome: Progressing Problem: Safety - Adult Goal: Free from fall injury 06/24/20242111 by Gris Decker RN Outcome: Progressing 06/24/20242111 by Gris Decker RN Outcome: Progressing [facility] 06-24-2024 Plan of care note Documented earlier. [facility] 06-24-2024 Plan of care note Medicated per order has better pain control at this time. Had small BM. Walking in room with steady gait safety maintained. T [facility] 06-24-2024 Note Department of Surger y Daily Progress Note SUBJECTIVE: No acute events overnight. Patient frustrated with bed discomfort. Drains with serosang output. Tolerating fulls with flatus. No BM. Feels weak, similar to his open heart surgery, Understands plans for IP rehab. ROS: Noted above unless otherwise mentioned OBJECTIVE: VITALS: Temp: [36.5 ?C (97.7 ?F)-37.3 ?C (99.2 ?F)] 36.9 ?C (98.4 ?F) Heart Rate: [54-82] 82 Resp: [16-19] 18 BP: (82-147)/(51-92) 147/92 INTAKE/OUTPUT: Reviewed in the EMR daily PHYSICAL EXAM: Gen: NAD, pain well controlled Heart: well perfused Lungs: symmetric chest rise, normal work of breathing Abd: soft, appropriately tender, non distended. Non rigid Skin: warm, well perfused, no obvious rashes, cellulitis or gross discoloration Lines: Wound vac in place good seal. 2x JOELLE drain in SS output LABS/IMAGING Reviewed in the EMR daily Current Inpatient Medications Scheduled Meds:acetaminophen, 1,000 mg, Oral, q8h amiodarone, 200 mg, Oral, BID atorvastatin, 40 mg, Oral, Daily bisacodyl, 10 mg, Rectal, Daily carvedilol, 25 mg, Oral, BID enoxaparin, 40 mg, SubCUTAneous, Daily polyethylene glycol (PEG) 3350, 17 g, Oral, Daily sodium chloride 0.9%, 10 mL, IntraVENous, 2 times per day Continuous Infusions:sodium chloride 0.45 % with KCl 20 mEq, 50 mL/hr, Last Rate: 50 mL/hr (06/23/24 1615) PRN Meds:PRN medications: hydrALAZINE, HYDROmorphone OR HYDROmorphone, labetalol, naloxone, ondansetron ODT OR ondansetron, oxyCODONE OR oxyCODONE, sodium chloride, sodium chloride 0.9%, tiZANidine ASSESSMENT AND PLAN: 73 y.o. male s/p open incisional hernia repair with mesh 06/21 - Complaints of back and abd pain around incision site. APS consulted and following - suppository daily - Cont wound vac - cont 2 JOELLE drain - ss output - Diet: FLD, maintain until BM then adv to soft - PO pain medications for pain control - OOBA - DVT ppx with SCD's -holding home Xarelto (afib) - Dispo - IPR when accepted Discussed with Dr Jenkins on for Dr Jaja Sarah MD 06/24/24 10:40 AM [facility] 06-24-2024 Note Resident notes refle ct my evaluation and review data. Seen on rounds with Dr. Sarah. Patient stable. Drains zero sanguinous. Patient tolerating diet. Pain is controlled. Will need rehab likely. Patient is a maximum assist even to stand. He?s otherwise doing well for my surgical standpoint. Discharge planning to rehab soon. [facility] 06-24-2024 Note Problem: Pain - Adul t Goal: Verbalizes/displays adequate comfort level or baseline comfort level Outcome: Progressing Problem: Safety - Adult Goal: Free from fall injury Outcome: Progressing [facility] 06-24-2024 Plan of care note Problem: Pain - Adult Goal: Verbalizes/displays adequate comfort level or baseline comfort level Outcome: Progressing Problem: Safety - Adult Goal: Free from fall injury Outcome: Progressing [facility] 06-23-2024 Nurse Note This RN called by nursing resident that patient wants to sign out of the hospital. This RN went to speak to patient and patient tearful and explained his back pain and the bed was to much and he wanted to go home. RN educated patient that at this time it was unsafe for him to leave as he still has drains and is very weak. Patient asked to be taken to the bathroom and he moved with max assist of 2 people. RN explained to patient again that at this time he was unsafe. Patient still requesting to leave. Dr. Briseno paged via secure chat, PRN muscle relaxer and tylenol given and ordered envella bed for patient. Patient at this time agreeable to stay and patient placed back to the chair. Call light within reach. T [facility] 06-23-2024 Nurse Note This RN called by nursing resident that patient wants to sign out of the hospital. This RN went to speak to patient and patient tearful and explained his back pain and the bed was to much and he wanted to go home. RN educated patient that at this time it was unsafe for him to leave as he still has drains and is very weak. Patient asked to be taken to the bathroom and he moved with max assist of 2 people. RN explained to patient again that at this time he was unsafe. Patient still requesting to leave. Dr. Briseno paged via secure chat, PRN muscle relaxer and tylenol given and ordered envella bed for patient. Patient at this time agreeable to stay and patient placed back to the chair. Call light within reach. documented in this encounter [facility] 06-23-2024 Note Formatting of this n ote might be different from the original. Care Managment Initial Assessment Date: 06/23/2024 Patient Name: Jacky Ellis : 1950 Patient Information Source of Information: Patient Cognition/Language: WFL - Within Functional Limits Permission given to speak with patient lifeline representatives/caregiver as indicated: Yes Confirmation of Payer with patient/family: Yes Payer Name: [employer]age [place]: No Confirmation of Primary Care Physician: Confirmed PCP Name: Hoda Grayson Seen in last 2 years?: Yes Primary Caregiver: Self If assistance needed, confirmed caregiver ready, willing and able to care for patient at discharge: Confirmed with: per patient his neighbor Living Arrangements Current Residence: House Number of Floors 1 Number of Entry Steps: (ramp) Bed/Bath Levels: Facility: Facility Name: Plan to Return: Lives with: Alone Support Systems: Children, Friends/neighbors Activities of Daily Living Ambulation: Independent Bathing/Dressing: Independent Elimination/Continence/Toileting : Independent Feeding: Independent Who Assists with Activities of Daily Living: Instrumental Activities of Daily Living Prescription Coverage: Yes Pharmacy Used: [facility] Medication Management: Independent Transportation/Shopping: Independent Transportation Mode: Car Needs Assistance with Transportation at Discharge: No Meal Preparation: Independent Laundry/Cleaning: Independent Finances/Bill Paying: Independent Communication: Independent Types of Care Services/Equipment Utilized Care Services: Dialysis Type: Durable Medical Equipment: (walk in shower with railings) Patient's Goal/Discharge Plan Patient expects to be discharged to: home Discharge Planning Actions: Continue to follow Patient's Choice Rights and [employer] and Collaborative Relationships Disclosed as Indicated for Post-Acute Care: Interdisciplinary Team Engagement: Social Work Referral for: Additional Information: Patient admitted to [facility] s/p open incisional hernia repair with mesh 06/21/2024. Met with pt at bedside, introduced self and explained role of TCC. Pt has insurance with RX coverage, active with PCP. Patient lives alone. Patient has friends and neighbors to assist. Patient denies any home going needs. Per patient he needs to have a bm and then his diet will be advanced. TCC to assist and follow as needed. Kelsie Yoder RN [facility] 06-23-2024 Note Formatting of this n ote might be different from the original. Care Managment Initial Assessment Date: 06/23/2024 Patient Name: Jacky Ellis : 1950 Patient Information Source of Information: Patient Cognition/Language: WFL - Within Functional Limits Permission given to speak with patient lifeline representatives/caregiver as indicated: Yes Confirmation of Payer with patient/family: Yes Payer Name: [place] Medicare [facility] [place]: No Confirmation of Primary Care Physician: Confirmed PCP Name: Hoda Grayson Seen in last 2 years?: Yes Primary Caregiver: Self If assistance needed, confirmed caregiver ready, willing and able to care for patient at discharge: Confirmed with: per patient his neighbor Living Arrangements Current Residence: House Number of Floors 1 Number of Entry Steps: (ramp) Bed/Bath Levels: Facility: Facility Name: Plan to Return: Lives with: Alone Support Systems: Children, Friends/neighbors Activities of Daily Living Ambulation: Independent Bathing/Dressing: Independent Elimination/Continence/Toileting : Independent Feeding: Independent Who Assists with Activities of Daily Living: Instrumental Activities of Daily Living Prescription Coverage: Yes Pharmacy Used: [facility] Medication Management: Independent Transportation/Shopping: Independent Transportation Mode: Car Needs Assistance with Transportation at Discharge: No Meal Preparation: Independent Laundry/Cleaning: Independent Finances/Bill Paying: Independent Communication: Independent Types of Care Services/Equipment Utilized Care Services: Dialysis Type: Durable Medical Equipment: (walk in shower with railings) Patient's Goal/Discharge Plan Patient expects to be discharged to: home Discharge Planning Actions: Continue to follow Patient's Choice Rights and [employer] and Collaborative Relationships Disclosed as Indicated for Post-Acute Care: Interdisciplinary Team Engagement: Social Work Referral for: Additional Information: Patient admitted to H6 s/p open incisional hernia repair with mesh 06/21/2024. Met with pt at bedside, introduced self and explained role of TCC. Pt has insurance with RX coverage, active with PCP. Patient lives alone. Patient has friends and neighbors to assist. Patient denies any home going needs. Per patient he needs to have a bm and then his diet will be advanced. TCC to assist and follow as needed. Kelsie Yoder RN T [facility] 06-23-2024 Note OCCUPATIONAL THERAPY [facility] Initial Evaluation Name/MRN: Jacky Ellis ([id number]) Evaluation Date: 06/23/2024 Date of : 1950 Admission Date: 06/21/2024 5:15 AM Age: 73 y.o. Room[facility]: [facility] Discharge Recommendation: IP Rehab Assessment IMPRESSION: Pt presented for open incisional hernia repair with mesh on 06/21/24. Pt reports being previously IND with ADLs, mobility, and transfers. Currently, pt CGA-Ce for transfers and mobility and supervision-total assist for ADLs. OT recommending IPR to improve independence with ADLs, pt agreeable to recommendation. Admitting Diagnosis: incisional hernia Performance Deficits /Impairments: Increased Pain, Decreased Functional Mobility, Decreased ADL status, Decreased Strength, and Decreased Endurance Prognosis: Good Decision Making: Low Complexity Subjective Pt supine in bed, required min encouragement but eventually agreeable to OT eval. Pain: Contreras-Swanson Pain Ratin = Hurts whole lot Pain Location: abdomen Past Medical History: Past Medical History: Diagnosis Date Arthritis Back pain lower Heart attack (HCC) Hypertension Lobar pneumonia, unspecified organism (HCC) 12/04/2020 Scoliosis Stroke (HCC) 2020 patient denies h/o CVA Past Surgical History: Past Surgical History: Procedure Laterality Date ABLATION FOR ATRIAL FIBRILLATION (HISTORICAL) CARDIAC SURGERY 2020 COLONOSCOPY CORONARY ARTERY BYPASS GRAFT DENTAL SURGERY HERNIA REPAIR Right 1958 [facility] OTHER SURGICAL HISTORY 06/21/2024 OPEN INCISIONAL HERNIA REPAIR WITH MESH RT/LT HEART CATHETERS (HISTORICAL) TRIPLE BYPASS THREE VALUES SHOULDER SURGERY SMALL INTESTINE SURGERY 08/2022 SBR SPINAL CORD STIMULATOR IMPLANT 2022 TONSILLECTOMY 1960 TOTAL SHOULDER ARTHROPLASTY UMBILICAL HERNIA REPAIR 08/2022 [place] Admission Diagnosis: Patient Active Problem List Diagnosis Date Noted Incisional hernia without obstruction or gangrene 06/21/2024 Acute renal failure (HCC) 02/03/2024 Stage 2 chronic kidney disease 02/03/2024 Disability of walking 02/03/2024 Lack of coordination 02/03/2024 Spinal stenosis, lumbar 02/03/2024 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 Arteriosclerosis of coronary artery 01/06/2024 Aortic root dilation (HCC) 01/06/2024 Aneurysm, thoracic aortic ([facility]) 01/06/2024 Hyperlipidemia 01/06/2024 Hx of CABG 01/06/2024 HFrEF (heart failure with reduced ejection fraction) ([facility]) 01/06/2024 Fatigue 01/06/2024 Scoliosis/kyphoscoliosis 01/06/2024 Right bundle-branch block 01/06/2024 Postoperative anemia 01/06/2024 Obesity with body mass index 30 or greater 01/06/2024 Type II diabetes mellitus ([facility]) 01/06/2024 Newly diagnosed diabetes ([facility]) 01/06/2024 Lumbar radiculitis 01/06/2024 Increased glucose level 01/06/2024 Obstructed umbilical hernia 12/21/2023 Chronic pain 09/16/2023 Dizziness and giddiness 09/16/2023 Localized osteoarthritis of left shoulder 12/25/2021 Obesity, Class I, BMI 30-34.9 12/24/2021 Cellulitis 12/05/2021 Heart failure, unspecified ([facility]) 12/20/2020 Essential (primary) hypertension 12/18/2020 Atrial fibrillation ([facility]) 12/18/2020 Cardiomegaly 12/18/2020 Orthostatic hypotension 12/18/2020 Dissection of thoracic aorta ([facility]) 12/04/2020 Dependence on supplemental oxygen 12/04/2020 Acute on chronic systolic heart failure (HCC) 12/04/2020 Acute blood loss as cause of postoperative anemia 12/04/2020 Hyperlipidemia, unspecified 12/04/2020 Scoliosis, unspecified 12/04/2020 Presence of other vascular implants and grafts 12/04/2020 Low back pain 12/04/2020 Insomnia, unspecified 12/04/2020 Type 2 diabetes mellitus with diabetic chronic kidney disease ([facility]) 12/04/2020 Chronic kidney disease, stage 2 (mild) 12/04/2020 Thrombocytopenia, unspecified (HCC) 12/04/2020 Medical Precautions: No active isolations Proper PPE donned/doffed in accordance with facility standards. Fall Risk: Dior Fall Risk Score: 70 (High Risk) Precautions/Restrictions: Lines/Drains/Airways: wound vac, bulb drain Family/Caregiver Present: none Overall Cognitive Status: WFL Overall Orientation Status: Oriented x4 Social/Functional History Pt reports living alone in a one story home. Pt has a walk in shower with bench, grab bars, and raised toilet seat. Pt has rollator, FWW, and cane at home from previous surgeries, but was not using a device for ambulation prior to this admission. Prior Level of Function Prior Level of ADL Function: Independent Prior Level of Mobility: Independent; Device: None Prior Level of Transfers: Independent Objective ADLs LE Dressing: Dependent, Pt unable to reach B feet to doff/don socks d/t abdominal drain and pain. OT offered education on AE, pt declined saying he has a nurse office and sock aid at home and he does not want to take his socks off. Toileting: Contact Guard, Pt required CGA for toilet transfer. Pt able to manage gown and void with supervision (more content not included)... [facility] 06-23-2024 Plan of care note Problem: Pain - Adult Goal: Verbalizes/displays adequate comfort level or baseline comfort level 06/23/2024 1137 by Christina Pedroza RN Outcome: Progressing 06/23/2024 1042 by Christina Pedroza RN Outcome: Progressing Problem: Safety - Adult Goal: Free from fall injury 06/23/2024 1137 by Christina Pedroza RN Outcome: Progressing 06/23/2024 1042 by Christina Pedroza RN Outcome: Progressing [facility] 06-23-2024 Note PHYSICAL THERAPY [facility] Initial Evaluation Name/MRN: Jacky Ellis ([id number]) Evaluation Date: 06/23/2024 Date of : 1950 Admission Date: 06/21/2024 5:15 AM Age: 73 y.o. Room/Bed: 61/61 A Discharge Recommendation: IP Rehab Equipment Needed: (tbd) Assessment IMPRESSION: The pt is admitted with an incisional hernia with repair. He will continue to benefit from therapy for his functional deficits and to improve his overall functional capacity. The pt would be able to tolerate 3 hours of therapy a day and IP REHAB is recommended at discharge. Min to mod assist was required for mobility this date. Rest breaks were needed due to limited endurance. The pt is not currently safe to return home and is a fall risk. He is currently unable to ambulate a home going distance. Admitting Diagnosis: incisional hernia with repair. Prognosis: good Performance Deficits /Impairments: Increased Pain, Decreased Functional Mobility, Decreased ADL status, Decreased Strength, Decreased Endurance, Decreased Balance, Decreased ROM, and Decreased Posture Decision Making: Low Complexity Subjective Pt in chair and agreed to PT. Pt would like to try to walk. Pain: 8 abdomen Past Medical History: Past Medical History: Diagnosis Date Arthritis Back pain lower Heart attack ([facility]) Hypertension Lobar pneumonia, unspecified organism ([facility]) 12/04/2020 Scoliosis Stroke ([facility]) 2020 patient denies h/o CVA Past Surgical History: Past Surgical History: Procedure Laterality Date ABLATION FOR ATRIAL FIBRILLATION (HISTORICAL) CARDIAC SURGERY 2020 COLONOSCOPY CORONARY ARTERY BYPASS GRAFT DENTAL SURGERY HERNIA REPAIR Right 1958 [facility] OTHER SURGICAL HISTORY 06/21/2024 OPEN INCISIONAL HERNIA REPAIR WITH MESH RT/LT HEART CATHETERS (HISTORICAL) TRIPLE BYPASS THREE VALUES SHOULDER SURGERY SMALL INTESTINE SURGERY 08/2022 SBR SPINAL CORD STIMULATOR IMPLANT 2022 TONSILLECTOMY 1960 TOTAL SHOULDER ARTHROPLASTY UMBILICAL HERNIA REPAIR 08/2022 [place] Admission Diagnosis: Patient Active Problem List Diagnosis Date Noted Incisional hernia without obstruction or gangrene 06/21/2024 Acute renal failure ([facility]) 02/03/2024 Stage 2 chronic kidney disease 02/03/2024 Disability of walking 02/03/2024 Lack of coordination 02/03/2024 Spinal stenosis, lumbar 02/03/2024 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 Arteriosclerosis of coronary artery 01/06/2024 Aortic root dilation ([facility]) 01/06/2024 Aneurysm, thoracic aortic ([facility]) 01/06/2024 Hyperlipidemia 01/06/2024 Hx of CABG 01/06/2024 HFrEF (heart failure with reduced ejection fraction) ([facility]) 01/06/2024 Fatigue 01/06/2024 Scoliosis/kyphoscoliosis 01/06/2024 Right bundle-branch block 01/06/2024 Postoperative anemia 01/06/2024 Obesity with body mass index 30 or greater 01/06/2024 Type II diabetes mellitus (HCC) 01/06/2024 Newly diagnosed diabetes (HCC) 01/06/2024 Lumbar radiculitis 01/06/2024 Increased glucose level 01/06/2024 Obstructed umbilical hernia 12/21/2023 Chronic pain 09/16/2023 Dizziness and giddiness 09/16/2023 Localized osteoarthritis of left shoulder 12/25/2021 Obesity, Class I, BMI 30-34.9 12/24/2021 Cellulitis 12/05/2021 Heart failure, unspecified ([facility]) 12/20/2020 Essential (primary) hypertension 12/18/2020 Atrial fibrillation ([facility]) 12/18/2020 Cardiomegaly 12/18/2020 Orthostatic hypotension 12/18/2020 Dissection of thoracic aorta ([facility]) 12/04/2020 Dependence on supplemental oxygen 12/04/2020 Acute on chronic systolic heart failure ([facility]) 12/04/2020 Acute blood loss as cause of postoperative anemia 12/04/2020 Hyperlipidemia, unspecified 12/04/2020 Scoliosis, unspecified 12/04/2020 Presence of other vascular implants and grafts 12/04/2020 Low back pain 12/04/2020 Insomnia, unspecified 12/04/2020 Type 2 diabetes mellitus with diabetic chronic kidney disease ([facility]) 12/04/2020 Chronic kidney disease, stage 2 (mild) 12/04/2020 Thrombocytopenia, unspecified ([facility]) 12/04/2020 Medical Precautions: No active isolations Proper PPE donned/doffed in accordance with facility standards. Fall Risk: Dior Fall Risk Score: 70 (High Risk) Precautions/Restrictions: Lines/Drains/Airways: wound vac, drains Family/Caregiver Present: none Overall Cognitive Status: WFL Overall Orientation Status: Oriented x4 Vision: WFL Hearing: WFL Social/Functional History Patient admitted from home. Lives With: Alone Type of Home: single family home Home Layout: Single Level Home Home Access: Ramped Entrance Bathroom Shower/Tub: Walk in Shower and seat Toilet: riser on toilet Home Equipment: front wheeled walker, rollator, and cane Homemaking Responsibilities: Independent Receives Help From: Friend(s) Active Outpatient Pharmacy Manager: Prior Level of Function Prior Level of ADL Function: Independent Prior Level of Mobility: Independent; Device: Front wheeled walker, Rollator, and Straight Cane Prior Level (more content not included)... [facility] 06-23-2024 Note Problem: Pain - Adul t Goal: Verbalizes/displays adequate comfort level or baseline comfort level Outcome: Progressing Problem: Safety - Adult Goal: Free from fall injury Outcome: Progressing [facility] 06-23-2024 Plan of care note Problem: Pain - Adult Goal: Verbalizes/displays adequate comfort level or baseline comfort level Outcome: Progressing Problem: Safety - Adult Goal: Free from fall injury Outcome: Progressing [facility] 06-23-2024 Note Department of Surger y Daily Progress Note SUBJECTIVE: No acute events overnight. States he was unable to sleep due to bed being uncomfortable/MSK back pain, asking to go home. Tolerating full liquid diet. Pain controlled with medication. Denies passing gas, no bowel movement. Denies nausea, vomiting. ROS: Noted above unless otherwise mentioned OBJECTIVE: VITALS: Temp: [36.3 ?C (97.3 ?F)-37.6 ?C (99.6 ?F)] 36.3 ?C (97.3 ?F) Heart Rate: [57-97] 57 Resp: [12-16] 12 BP: (113-163)/(73-107) 121/80 INTAKE/OUTPUT: Reviewed in the EMR daily PHYSICAL EXAM: Gen: NAD, pain well controlled Heart: well perfused Lungs: symmetric chest rise, normal work of breathing Abd: soft, appropriately tender, non distended. Non rigid Skin: warm, well perfused, no obvious rashes, cellulitis or gross discoloration Lines: Wound vac in place good seal. 2x JOELLE drain in SS output LABS/IMAGING Reviewed in the EMR daily Current Inpatient Medications Scheduled Meds:acetaminophen, 1,000 mg, Oral, q8h amiodarone, 200 mg, Oral, BID atorvastatin, 40 mg, Oral, Daily carvedilol, 25 mg, Oral, BID enoxaparin, 40 mg, SubCUTAneous, Daily polyethylene glycol (PEG) 3350, 17 g, Oral, Daily sodium chloride 0.9%, 10 mL, IntraVENous, 2 times per day Continuous Infusions: PRN Meds:PRN medications: hydrALAZINE, HYDROmorphone OR HYDROmorphone, labetalol, naloxone, ondansetron ODT OR ondansetron, oxyCODONE OR oxyCODONE, sodium chloride, sodium chloride 0.9%, tiZANidine ASSESSMENT AND PLAN: 73 y.o. male s/p open incisional hernia repair with mesh 06/21 - Complaints of back and abd pain around incision site. APS consulted and following Pt wanted more info on novel non opoid pain med that just got approved. Will do some research and see if that is an options - Passed void trial this - Cont wound vac - cont 2 JOELLE drain upper 20cc and lower 10cc - Diet: FLD, maintain until passing gas regularly - PO pain medications for pain control - OOBA - DVT ppx with SCD's -holding home Xarelto (afib) - Dispo -pending clinical course Will discuss with Dr. Jaja Araujo DO 06/23/24 8:12 AM ATTESTATION The patient was seen and examined. I have reviewed the patients presentation, histories, imaging and serology studies. I agree with the above assessment and plan. Ab: appropriately tender to palpation over surgical sites. Incision/dressing is clean, dry, and intact. Patient is doing well this morning. Pain is well controlled. Labs and Imaging Reviewed. Continue diet. Supp today. Encourage up to chair, ambulation and IS. Await bowel function. ----- I (Antione Cardenas) personally supervised the resident/fellow in the evaluation and development of a treatment plan for this patient including using nursing/ems notes. I personally discussed the review of systems and interviewed the patient along with performing a physical examination. In addition, I discussed the patient's condition and treatment options with them. I have also reviewed and agree with the past medical, family and social history unless otherwise noted and personally reviewed the imaging and labs. This note may be a delayed entry. All of the patient's questions were answered. The patient was seen and examined independently and relevant data reviewed by myself. A full chart review was performed. [facility] 06-22-2024 Plan of care note Problem: Pain - Adult Goal: Verbalizes/displays adequate comfort level or baseline comfort level Outcome: Progressing Flowsheets (Taken 06/22/20242122) Verbalizes/displays adequate comfort level or baseline comfort level: Assess pain using appropriate pain scale Administer analgesics based on type and severity of pain and evaluate response Problem: Safety - Adult Goal: Free from fall injury Outcome: Progressing Flowsheets (Taken 06/22/20242122) Free from fall injury: Instruct family/caregiver on patient safety T [facility] 06-22-2024 Note Formatting of this n ote might be different from the original. Discussed Home Care Services available to patient post DC from the hospital. Educated the patient on the services that are provided, objective of home care, and reason for the services. At this time the patient states they feel home care is not necessary. Pt has plenty of help at home and is not concerned about the prevena wound vac. The patient politely declined home care services. The patient was educated that should any needs arise post DC to follow up with their PCP. The patient was able to verbalize understanding. Home care to sign off. Please re-consult should any other needs arise prior to DC. T [facility] 06-22-2024 Note Formatting of this n ote might be different from the original. Discussed Home Care Services available to patient post DC from the hospital. Educated the patient on the services that are provided, objective of home care, and reason for the services. At this time the patient states they feel home care is not necessary. Pt has plenty of help at home and is not concerned about the prevena wound vac. The patient politely declined home care services. The patient was educated that should any needs arise post DC to follow up with their PCP. The patient was able to verbalize understanding. Home care to sign off. Please re-consult should any other needs arise prior to DC. T [facility] 06-22-2024 Consult note Associated Order (s): IP CONSULT TO ANESTHESIOLOGY - ACUTE PAIN SERVICE Images from the original note were not included. PAGING: The Acute Pain Service providers are available exclusively via [email or web address]. APS does not utilize pagers. 06/22/2024 Lab Results Component Value Date CREATININE 1.29 (H) 06/22/2024 CREATININE 1.46 (H) 02/04/2024 AST 24 02/04/2024 ALT 24 02/04/2024 Discharge Recommendations: Pending Pain Management Adjuvants: 0700 --> 0700 06/21/2024 Scheduled APAP 1 g PRN Hydromorphone IV 3 Oxycodone 20 mg Assessment / Pain Management Plan: Will follow. Acute Postsurgical Abdominal pain Multimodal pain regimen: BLOCK: n/a Continue Acetaminophen 1,000 mg po q8h scheduled ATC. Liver enzymes WNL, last checked: above 02/04/24 Continue Hydromorphone 0.25 mg - 0.5 mg IVP qh3 prn moderate to severe breakthrough pain. Please utilize oral medications first. Continue Oxycodone 5 - 10 mg po q4h prn moderate to severe breakthrough pain. Ordered tizanidine 4 mg Q 6 hours PRN for muscle spasms, per patient request Continue Naloxone 0.4 mg IVP prn opioid reversal. PRN if respiratory rate is less than 6/min and patient is difficult to arouse then notify physician STAT. Mix 9 mL of sodium chloride 0.9% with 0.4 mg (1 mL) of naloxone (NARCAN) in 10 mL syringe. (Note: dilution is 0.04 mg/mL) Give 0.08 mg (2 mL of special dilution), slow IV push, repeat up to 0.4 mg (10 mL) or until patient is responsive to physical stimulation and respiratory rate is equal to or greater than 6 breaths/min. Continue to observe, if no response within 3 minutes of administration of 0.4 mg (10 mL) total, repeat dose (0.4 mg as administered previously). Incisional hernia without obstruction or gangrene Pt is s/p open incisional hernia repair with mesh 06/21 See #1 Opioid tolerant, dependent Patient prescribed [place] 10/325 TID Constipation At risk for opioid induced constipation Patient currently receiving opioids for pain management necessitating a bowel regimen. Recommend initiating scheduled Sennakot-S 8.6/50mg, 1 tablet PO BID. Would also recommend Milk of Magnesia 400mg/5ml, administer 30mL by mouth daily PRN. Opioid Use, Acute on Chronic Reviewed and educated patient on responsible use of opioids: after surgery, it can be normal to experience pain. If it is mild and you can move about without great difficulty or discomfort, you may not need to take pain medication. It is very important to take your pain medication only as needed. Avoiding excessive or unnecessary medication, will enable you to progress your activity each day to improve your muscle tone and movement, deep breathing, digestion, circulation and your body's ability to heal itself. OARRS reviewed for past two years. (Recurrent opiates RX filled) [x] Patient's OARRS report (PDMP) have been reviewed. Pain Management: Starla Plan discussed with patient who appears to understand and agrees. Subjective: We have been asked to see this 73 y.o. male for acute post operative pain management s/p open incisional hernia repair with mesh 06/21 Reviewed ECG 06/21/24 JHOANA, naseem pages. On arrival, pt lying in bed. Pt appears well, comfortable. Pt talkative and cooperative throughout exam, happy with current pain regimen. He states his pain is well controlled. Pt c/o muscle spasms, states he has chronic back pain He is requesting tizanidine Clear liquid diet ordered Patient educated on pain regimen, aware that oxycodone po, hydromorphone IV, tizanidine are PRN and patient must ask for these medications when needed. Educated patient to utilize oral pain medications as first line and reserve IV pain medications for severe breakthrough pain. Pt is realistic about pain control: Not all pain will be taken away, but pain should be tolerable/manageable with current regimen. Pt instructed to have staff page APS if pain becomes uncontrolled when utilizing present regimen. Pt agreeable, denies further questions. PMH reviewed below Pain Location: Back Aggravating Factors: Moving Sedation score: 1: Awake and alert Pain Severity: moderate Pain Quality: tender Alleviating Factors: Rest/Pain medications The patient's medical history and physical assessment, medications, allergies, patient's current medical condition, imaging, and labs were reviewed as part of this consultation. [x] Patient's Medications have been reviewed. Review of Systems Constitutional: Negative for chills and fever. HENT: Negative for trouble swallowing. Eyes: Negative for visual disturbance. Respiratory: Negative for shortness of breath. Cardiovascular: Negative for chest pain. Gastrointestinal: Positive for abdominal pain. Negative for nausea and vomiting. Musculoskeletal: Positive for back pain (chronic). Negative for arthralgias. Skin: Positive for wound (surgical). Neurological: Negative for dizziness and headaches. Psychiatric/Behavioral: Negative for confusion. The patient is not nervous/anxious. Physical Exam Vitals and nursing note reviewed. Constitutional: General: He is not in acute distress. HENT: Head: Normocephalic and atraumatic. Eyes: General: Vision grossly intact. Cardiovascular: Rate and Rhythm: Normal rate. Pulmonary: Effort: Pulmonary effort is normal. Abdominal: Palpations: Abdomen is soft. Musculoskeletal: General: Tenderness (lower back, chronic) present. Normal range of motion. Cervical back: Normal range of motion. Skin: General: Skin is warm and dry. Comments: Abdominal binder in place Neurological: Mental Status: He is alert and oriented to person, place, and time. Psychiatric: Mood and Affect: Mood normal. Behavior: Behavior normal. Social History Tobacco Use Smoking Status Former Current packs/day: 0.00 Average packs/day: 1 pack/day for 5.0 years (5.0 ttl pk-yrs) Types: Cigarettes Start date: 1969 Quit date: 1974 Years since quittin.2 Smokeless Tobacco Never Social History Substance and Sexual Activity Alcohol Use Not Currently Comment: OCC TWICE A MONTH Social History Substance and Sexual Activity Drug Use Not Currently Objective Findings: Vital signs: Blood pressure (!) 155/106, pulse 79, temperature 37 C (98.6 F), temperature source Temporal, resp. rate 15, SpO2 95%. Allergies: Dapagliflozin and Penicillins Past Medical History: Diagnosis Date Arthritis Back pain lower Heart attack (HCC) Hypertension Lobar pneumonia, unspecified organism (HCC) 12/04/2020 Scoliosis Stroke (HCC) 2020 patient denies h/o CVA Past Surgical History: Procedure Laterality Date ABLATION FOR ATRIAL FIBRILLATION (HISTORICAL) CARDIAC SURGERY 2020 COLONOSCOPY CORONARY ARTERY BYPASS GRAFT DENTAL SURGERY HERNIA REPAIR Right 1958 RIH OTHER SURGICAL HISTORY 06/21/2024 OPEN INCISIONAL HERNIA REPAIR WITH MESH RT/LT HEART CATHETERS (HISTORICAL) TRIPLE BYPASS THREE VALUES SHOULDER SURGERY SMALL INTESTINE SURGERY 08/2022 SBR SPINAL CORD STIMULATOR IMPLANT 2022 TONSILLECTOMY 1960 TOTAL SHOULDER ARTHROPLASTY UMBILICAL HERNIA REPAIR 08/2022 [place] Family History Problem Relation Name Age of Onset Cancer Mother Cancer Father Patient Active Problem List Diagnosis Essential (primary) hypertension Dissection of thoracic aorta (HCC) Dependence on supplemental oxygen Atrial fibrillation (HCC) Coronary artery fistula Arteriosclerosis of coronary artery Cardiomegaly Aortic root dilation (HCC) Aneurysm, thoracic aortic (HCC) Acute on chronic systolic heart failure (HCC) Acute blood loss as cause of postoperative anemia Hyperlipidemia Hyperlipidemia, unspecified Hx of CABG HFrEF (heart failure with reduced ejection fraction) (HCC) Heart failure, unspecified (HCC) Fatigue Scoliosis/kyphoscoliosis Scoliosis, unspecified Right bundle-branch block Presence of other vascular implants and grafts Postoperative anemia Orthostatic hypotension Obesity, Class I, BMI 30-34.9 Obesity with body mass index 30 or greater Type II diabetes mellitus (HCC) Newly diagnosed diabetes (HCC) Lumbar radiculitis Low back pain Localized osteoarthritis of left shoulder Insomnia, unspecified Increased glucose level Acute renal failure (HCC) Cellulitis Type 2 diabetes mellitus with diabetic chronic kidney disease (HCC) Chronic kidney disease, stage 2 (mild) Stage 2 chronic kidney disease Chronic pain Disability of walking Dizziness and giddiness Lack of coordination Obstructed umbilical hernia Thrombocytopenia, unspecified (HCC) Spinal stenosis, lumbar Incisional hernia without obstruction or gangrene PAGING: The Acute Pain Service providers are available exclusively via [email or web address]. APS does not utilize pagers. Cosigned by Abdi Draper MD at 06/23/2024 7:24 PM EDT [facility] 06-22-2024 Consult note Associated Order (s): IP CONSULT TO ANESTHESIOLOGY - ACUTE PAIN SERVICE Images from the original note were not included. PAGING: The Acute Pain Service providers are available exclusively via [email or web address]. APS does not utilize pagers. 06/22/2024 Lab Results Component Value Date CREATININE 1.29 (H) 06/22/2024 CREATININE 1.46 (H) 02/04/2024 AST 24 02/04/2024 ALT 24 02/04/2024 Discharge Recommendations: Pending Pain Management Adjuvants: 0700 --> 0700 06/21/2024 Scheduled APAP 1 g PRN Hydromorphone IV 3 Oxycodone 20 mg Assessment / Pain Management Plan: Will follow. Acute Postsurgical Abdominal pain Multimodal pain regimen: BLOCK: n/a Continue Acetaminophen 1,000 mg po q8h scheduled ATC. Liver enzymes WNL, last checked: above 02/04/24 Continue Hydromorphone 0.25 mg - 0.5 mg IVP qh3 prn moderate to severe breakthrough pain. Please utilize oral medications first. Continue Oxycodone 5 - 10 mg po q4h prn moderate to severe breakthrough pain. Ordered tizanidine 4 mg Q 6 hours PRN for muscle spasms, per patient request Continue Naloxone 0.4 mg IVP prn opioid reversal. PRN if respiratory rate is less than 6/min and patient is difficult to arouse then notify physician STAT. Mix 9 mL of sodium chloride 0.9% with 0.4 mg (1 mL) of naloxone (NARCAN) in 10 mL syringe. (Note: dilution is 0.04 mg/mL) Give 0.08 mg (2 mL of special dilution), slow IV push, repeat up to 0.4 mg (10 mL) or until patient is responsive to physical stimulation and respiratory rate is equal to or greater than 6 breaths/min. Continue to observe, if no response within 3 minutes of administration of 0.4 mg (10 mL) total, repeat dose (0.4 mg as administered previously). Incisional hernia without obstruction or gangrene Pt is s/p open incisional hernia repair with mesh 06/21 See #1 Opioid tolerant, dependent Patient prescribed [place] 10/325 TID Constipation At risk for opioid induced constipation Patient currently receiving opioids for pain management necessitating a bowel regimen. Recommend initiating scheduled Sennakot-S 8.6/50mg, 1 tablet PO BID. Would also recommend Milk of Magnesia 400mg/5ml, administer 30mL by mouth daily PRN. Opioid Use, Acute on Chronic Reviewed and educated patient on responsible use of opioids: after surgery, it can be normal to experience pain. If it is mild and you can move about without great difficulty or discomfort, you may not need to take pain medication. It is very important to take your pain medication only as needed. Avoiding excessive or unnecessary medication, will enable you to progress your activity each day to improve your muscle tone and movement, deep breathing, digestion, circulation and your body's ability to heal itself. OARRS reviewed for past two years. (Recurrent opiates RX filled) [x] Patient's OARRS report (PDMP) have been reviewed. Pain Management: Starla Plan discussed with patient who appears to understand and agrees. Subjective: We have been asked to see this 73 y.o. male for acute post operative pain management s/p open incisional hernia repair with mesh 06/21 Reviewed ECG 06/21/24 JHOANA, naseem pages. On arrival, pt lying in bed. Pt appears well, comfortable. Pt talkative and cooperative throughout exam, happy with current pain regimen. He states his pain is well controlled. Pt c/o muscle spasms, states he has chronic back pain He is requesting tizanidine Clear liquid diet ordered Patient educated on pain regimen, aware that oxycodone po, hydromorphone IV, tizanidine are PRN and patient must ask for these medications when needed. Educated patient to utilize oral pain medications as first line and reserve IV pain medications for severe breakthrough pain. Pt is realistic about pain control: Not all pain will be taken away, but pain should be tolerable/manageable with current regimen. Pt instructed to have staff page APS if pain becomes uncontrolled when utilizing present regimen. Pt agreeable, denies further questions. PMH reviewed below Pain Location: Back Aggravating Factors: Moving Sedation score: 1: Awake and alert Pain Severity: moderate Pain Quality: tender Alleviating Factors: Rest/Pain medications The patient's medical history and physical assessment, medications, allergies, patient's current medical condition, imaging, and labs were reviewed as part of this consultation. [x] Patient's Medications have been reviewed. Review of Systems Constitutional: Negative for chills and fever. HENT: Negative for trouble swallowing. Eyes: Negative for visual disturbance. Respiratory: Negative for shortness of breath. Cardiovascular: Negative for chest pain. Gastrointestinal: Positive for abdominal pain. Negative for nausea and vomiting. Musculoskeletal: Positive for back pain (chronic). Negative for arthralgias. Skin: Positive for wound (surgical). Neurological: Negative for dizziness and headaches. Psychiatric/Behavioral: Negative for confusion. The patient is not nervous/anxious. Physical Exam Vitals and nursing note reviewed. Constitutional: General: He is not in acute distress. HENT: Head: Normocephalic and atraumatic. Eyes: General: Vision grossly intact. Cardiovascular: Rate and Rhythm: Normal rate. Pulmonary: Effort: Pulmonary effort is normal. Abdominal: Palpations: Abdomen is soft. Musculoskeletal: General: Tenderness (lower back, chronic) present. Normal range of motion. Cervical back: Normal range of motion. Skin: General: Skin is warm and dry. Comments: Abdominal binder in place Neurological: Mental Status: He is alert and oriented to person, place, and time. Psychiatric: Mood and Affect: Mood normal. Behavior: Behavior normal. Social History Tobacco Use Smoking Status Former Current packs/day: 0.00 Average packs/day: 1 pack/day for 5.0 years (5.0 ttl pk-yrs) Types: Cigarettes Start date: 1969 Quit date: 1975 Years since quittin.2 Smokeless Tobacco Never Social History Substance and Sexual Activity Alcohol Use Not Currently Comment: OCC TWICE A MONTH Social History Substance and Sexual Activity Drug Use Not Currently Objective Findings: Vital signs: Blood pressure (!) 155/106, pulse 79, temperature 37 C (98.6 F), temperature source Temporal, resp. rate 15, SpO2 95%. Allergies: Dapagliflozin and Penicillins Past Medical History: Diagnosis Date Arthritis Back pain lower Heart attack (HCC) Hypertension Lobar pneumonia, unspecified organism (HCC) 12/04/2020 Scoliosis Stroke (HCC) 2020 patient denies h/o CVA Past Surgical History: Procedure Laterality Date ABLATION FOR ATRIAL FIBRILLATION (HISTORICAL) CARDIAC SURGERY 2020 COLONOSCOPY CORONARY ARTERY BYPASS GRAFT DENTAL SURGERY HERNIA REPAIR Right 1958 [facility] OTHER SURGICAL HISTORY 06/21/2024 OPEN INCISIONAL HERNIA REPAIR WITH MESH RT/LT HEART CATHETERS (HISTORICAL) TRIPLE BYPASS THREE VALUES SHOULDER SURGERY SMALL INTESTINE SURGERY 08/2022 SBR SPINAL CORD STIMULATOR IMPLANT 2022 TONSILLECTOMY 1960 TOTAL SHOULDER ARTHROPLASTY UMBILICAL HERNIA REPAIR 08/2022 [place] Family History Problem Relation Name Age of Onset Cancer Mother Cancer Father Patient Active Problem List Diagnosis Essential (primary) hypertension Dissection of thoracic aorta (HCC) Dependence on supplemental oxygen Atrial fibrillation (HCC) Coronary artery fistula Arteriosclerosis of coronary artery Cardiomegaly Aortic root dilation (HCC) Aneurysm, thoracic aortic (HCC) Acute on chronic systolic heart failure (HCC) Acute blood loss as cause of postoperative anemia Hyperlipidemia Hyperlipidemia, unspecified Hx of CABG HFrEF (heart failure with reduced ejection fraction) (HCC) Heart failure, unspecified (HCC) Fatigue Scoliosis/kyphoscoliosis Scoliosis, unspecified Right bundle-branch block Presence of other vascular implants and grafts Postoperative anemia Orthostatic hypotension Obesity, Class I, BMI 30-34.9 Obesity with body mass index 30 or greater Type II diabetes mellitus (HCC) Newly diagnosed diabetes (HCC) Lumbar radiculitis Low back pain Localized osteoarthritis of left shoulder Insomnia, unspecified Increased glucose level Acute renal failure (HCC) Cellulitis Type 2 diabetes mellitus with diabetic chronic kidney disease (HCC) Chronic kidney disease, stage 2 (mild) Stage 2 chronic kidney disease Chronic pain Disability of walking Dizziness and giddiness Lack of coordination Obstructed umbilical hernia Thrombocytopenia, unspecified (HCC) Spinal stenosis, lumbar Incisional hernia without obstruction or gangrene PAGING: The Acute Pain Service providers are available exclusively via [email or web address]. APS does not utilize pagers. Cosigned by Abdi Draper MD at 06/23/2024 7:24 PM EDT documented in this encounter [facility] 06-22-2024 Plan of care note Problem: Pain - Adult Goal: Verbalizes/displays adequate comfort level or baseline comfort level 06/22/2024 0958 by Christina Pedroza RN Outcome: Progressing 06/22/2024 0953 by Christina Pedroza RN Outcome: Progressing Problem: Safety - Adult Goal: Free from fall injury 06/22/2024 0958 by Christina Pedroza RN Outcome: Progressing 06/22/2024 0953 by Christina Pedroza RN Outcome: Progressing [facility] 06-22-2024 Note Problem: Pain - Adul t Goal: Verbalizes/displays adequate comfort level or baseline comfort level Outcome: Progressing Problem: Safety - Adult Goal: Free from fall injury Outcome: Progressing [facility] 06-22-2024 Plan of care note Problem: Pain - Adult Goal: Verbalizes/displays adequate comfort level or baseline comfort level Outcome: Progressing Problem: Safety - Adult Goal: Free from fall injury Outcome: Progressing [facility] 06-22-2024 Note Department of Surger y Daily Progress Note SUBJECTIVE: No acute events overnight. Tolerating CLD. Pain controlled with medication. Denies passing gas, no bowel movement. Denies nausea, vomiting. Maria R removed this am. ROS: Noted above unless otherwise mentioned OBJECTIVE: VITALS: Temp: [36.1 ?C (97 ?F)-37 ?C (98.6 ?F)] 36.8 ?C (98.2 ?F) Heart Rate: [63-98] 68 Resp: [11-18] 16 BP: (111-155)/(69-106) 120/91 INTAKE/OUTPUT: Reviewed in the EMR daily PHYSICAL EXAM: Gen: NAD, pain well controlled Heart: well perfused Lungs: symmetric chest rise, normal work of breathing Abd: soft, appropriately tender, non distended. Non rigid Skin: warm, well perfused, no obvious rashes, cellulitis or gross discoloration LABS/IMAGING Reviewed in the EMR daily Current Inpatient Medications Scheduled Meds:acetaminophen, 1,000 mg, Oral, q8h amiodarone, 200 mg, Oral, BID atorvastatin, 40 mg, Oral, Daily polyethylene glycol (PEG) 3350, 17 g, Oral, Daily [Held by provider] sacubitril-valsartan, 1 tablet, Oral, BID sodium chloride 0.9%, 10 mL, IntraVENous, 2 times per day Continuous Infusions: PRN Meds:PRN medications: HYDROmorphone OR HYDROmorphone, naloxone, ondansetron ODT OR ondansetron, oxyCODONE OR oxyCODONE, sodium chloride, sodium chloride 0.9% ASSESSMENT AND PLAN: 73 y.o. male s/p open incisional hernia repair with mesh 06/21 - void trial this am - Diet: CLD, maintain until passing gas regularly - PO pain medications for pain control - OOBA - DVT ppx with SCD's -holding home Xarelto - Dispo -pending clinical course Will discuss with Dr. Jaja Araujo DO 06/22/24 8:50 AM ATTESTATION The patient was seen and examined. I have reviewed the patients presentation, histories, imaging and serology studies. I agree with the above assessment and plan. Ab: appropriately tender to palpation over surgical sites. Incision/dressing is clean, dry, and intact. Patient is doing well this morning. Pain is well controlled. Labs and Imaging Reviewed. Start diet. Encourage up to chair, ambulation and IS. Restart home medications. Ok for dvt ppx. Hold xeralto for now. OK for FLD. Supp tomorrow. PT/OT. Will follow. Patient has obesity BMI31.5 and HFpEF. ----- I (Antione Cardenas) personally supervised the resident/fellow in the evaluation and development of a treatment plan for this patient including using nursing/ems notes. I personally discussed the review of systems and interviewed the patient along with performing a physical examination. In addition, I discussed the patient's condition and treatment options with them. I have also reviewed and agree with the past medical, family and social history unless otherwise noted and personally reviewed the imaging and labs. This note may be a delayed entry. All of the patient's questions were answered. The patient was seen and examined independently and relevant data reviewed by myself. A full chart review was performed. [facility] 06-21-2024 Plan of care note Problem: Pain - Adult Goal: Verbalizes/displays adequate comfort level or baseline comfort level Outcome: Progressing Flowsheets (Taken 06/21/20242200) Verbalizes/displays adequate comfort level or baseline comfort level: Assess pain using appropriate pain scale Administer analgesics based on type and severity of pain and evaluate response Problem: Safety - Adult Goal: Free from fall injury Outcome: Progressing Flowsheets (Taken 06/21/20242200) Free from fall injury: Instruct family/caregiver on patient safety T [facility] 06-21-2024 Plan of care note Problem: Pain - Adult Goal: Verbalizes/displays adequate comfort level or baseline comfort level 06/21/2024 1639 by Christina Pedroza RN Outcome: Progressing 06/21/2024 1517 by Christina Pedroza RN Outcome: Progressing Problem: Safety - Adult Goal: Free from fall injury 06/21/2024 1639 by Christina Pedroza RN Outcome: Progressing 06/21/2024 1517 by Christina Pedroza RN Outcome: Progressing T [facility] 06-21-2024 Note Problem: Pain - Adul t Goal: Verbalizes/displays adequate comfort level or baseline comfort level Outcome: Progressing Problem: Safety - Adult Goal: Free from fall injury Outcome: Progressing [facility] 06-21-2024 Plan of care note Problem: Pain - Adult Goal: Verbalizes/displays adequate comfort level or baseline comfort level Outcome: Progressing Problem: Safety - Adult Goal: Free from fall injury Outcome: Progressing [facility] 06-21-2024 Nurse Note Family to bedside for short visit [facility] 06-21-2024 Nurse Note John updated by telephone. Waiting for bed assignment [facility] 06-21-2024 Note Patient: Jacky torres Procedure Summary Date: 06/21/24 Room / Location: [address] Operating Room Anesthesia Start: 732 Anesthesia Stop: 1016 Procedures: OPEN INCISIONAL HERNIA REPAIR WITH MESH (Abdomen) POSSIBLE COMPONENT SEPARATION Diagnosis: Incisional hernia without obstruction or gangrene Surgeons: Antione Cardenas DO Responsible Provider: Abdi Draper MD Anesthesia Type: general, regional ASA Status: 3 Anesthesia Type: general, regional Vitals Value Taken Time BP 131/92 06/21/24 1015 Temp 36.1 06/21/24 1023 Pulse 69 06/21/24 1021 Resp 16 06/21/24 1021 SpO2 99 % 06/21/24 1021 Vitals shown include unfiled device data. Anesthesia Post Evaluation Patient location during evaluation: PACU Patient participation: complete - patient participated Level of consciousness: awake and alert Pain management: satisfactory to patient Airway patency: patent Dental Injury: no Cardiovascular status: acceptable, blood pressure returned to baseline and hemodynamically stable Respiratory status: acceptable, spontaneous ventilation and face mask Hydration status: euvolemic Nausea/Vomiting: controlled No notable events documented. Patient can be discharged once all PACU criteria has been met. [facility] 06-21-2024 Note Patient: Jacky torres Procedure Summary Date: 06/21/24 Room / Location: [address] Operating Room Anesthesia Start: 732 Anesthesia Stop: 1016 Procedures: OPEN INCISIONAL HERNIA REPAIR WITH MESH (Abdomen) POSSIBLE COMPONENT SEPARATION Diagnosis: Incisional hernia without obstruction or gangrene Surgeons: Antione Cardenas DO Responsible Provider: Abdi Draper MD Anesthesia Type: general, regional ASA Status: 3 Anesthesia Type: general, regional Vitals Value Taken Time BP 131/92 06/21/24 1015 Temp 36.1 06/21/24 1022 Pulse 69 06/21/24 1021 Resp 16 06/21/24 1021 SpO2 99 % 06/21/24 1021 Vitals shown include unfiled device data. Anesthesia Post Evaluation Patient location during evaluation: PACU Patient participation: complete - patient participated Level of consciousness: awake and alert Pain management: satisfactory to patient Multimodal analgesia pain management approach Airway patency: patent Two or more strategies used to mitigate risk of obstructive sleep apnea Cardiovascular status: acceptable and hemodynamically stable Respiratory status: acceptable and face mask Hydration status: acceptable No notable events documented. MIPS #430 PONV Patient received an inhalational anesthetic (4554F) Patient does not exhibit three or more risk factors for PONV (X0430)) MIPS # 424 Perioperative Temperature Management Anesthesia time was 60 minutes or longer (4255F) Anesthesai administered was General (inhalational or TIVA) or Neuraxial block (X0424) At least one body temperature greater than 95.8F/35.5C achieved within the 30 mins immediately prior to or the 15 minutes immediately following anesthesia end time (G9771) MIPS #477 Multimodal Pain Management Not emergent case Patient was administered multimodal pain management (two or more drugs and/or interventions excluding systemic opioids) in the periopeartive period occurring at some time between 6 hours prior to anesthesia start time until discharged from PACU (G2148) MIPS #404 Anesthesiology Smoking Abstinence The patient is not a current smoker (e.g. cigarette, cigar, pipe, e-cigarette/vaping/marijuana) If no stop here (XX404) I completed my handoff to the receiving clinician during which we: 1. Identified the patient 2. Identified the responsible provider 3. Reviewed the pertinent medical history 4. Discussed the surgical course 5. Reviewed intra-op anesthesia management and issues during anesthesia 6. Set expectations for post-procedure period 7. Allowed opportunity for questions and acknowledgement of understanding. [facility] 06-21-2024 Note Airway Date/Time: 06/21/2024 7:47 AM Urgency: scheduled Airway not difficult General Information and Staff Patient location during procedure: Procedural Resident/SHEET ROCK HANGER: Alda Hammer CRNA Performed: SHEET ROCK HANGER Indications and Patient Condition Indications for airway management: anesthesia Sedation level: Asleep Preoxygenated: yes Patient position: sniffing Mask difficulty assessment: 1 - vent by mask Final Airway Details Final airway type: endotracheal airway Successful airway: ETT Cuffed: yes Successful intubation technique: direct laryngoscopy Blade: Conde Blade size: #3 ETT size (mm): 7.0 Cormack-Lehane Classification: grade I - full view of glottis Placement verified by: capnometry Measured from: lips ETT to lips (cm): 24 Number of attempts at approach: 1 Number of other approaches attempted: 0 [facility] 06-21-2024 Note Peripheral Block Time Out: 06/21/2024 7:45 AM Patient location during procedure: Procedural Start time: 06/21/2024 7:46 AM End time: 06/21/2024 7:50 AM Reason for block: at surgeon's request and post-op pain management Staffing Performed: SHEET ROCK HANGER Resident/SHEET ROCK HANGER: Flavio Nixon CRNA Preanesthetic Checklist Completed: patient identified, IV checked, site marked, risks and benefits discussed, surgical consent, monitors and equipment checked, pre-op evaluation and timeout performed Region: [place] Primary: TAP (Bupivacaine 0.375%/ Epi 1:200,000/ Dex 0.1mg/mL 40ml divided evenly bilateral) Secondary: Upper rectus (Bupivacaine 0.375%/ Epi 1:200,000/ Dex 0.1mg/mL 20ml divided evenly bilateral) Peripheral Block Patient position: supine Prep: ChloraPrep Patient monitoring: heart rate, fire suppression captain, continuous pulse ox and continuous capnometry O2: ETT/LMA Laterality: bilateral Injection technique: single-shot Guidance: ultrasound guided -image retained in chart, tip of the needle identified by ultraound during injection. Needle Needle: 21G X 110 mm Additional Notes 06/21/2024 7:46 AM Assessment Injection assessment: negative aspiration for heme, no paresthesia on injection and incremental injection Heart rate change: no Slow fractionated injection: yes Required Documentation: Relevant anatomy identified (Nerves, Vessels, Muscles), Negative for blood on aspiration, Local anesthetic injected incrementally with intermittent aspiration every 5 mL, Normal resistance with injection, No EKG changes noted, No symptoms of toxicity, Local anesthetic spread visualized around nerves or plane. and Local anesthetic injected without difficultyMedications [id number]-[id number]-ezwuqu hrine (TAP) syringe - Injection 40 mL - 06/21/2024 7:46:00 AM bupivacaine liposome (Exparel) 1.3 % injection - Injection 20 mL - 06/21/2024 7:46:00 AM [facility] 06-21-2024 Procedure note Images from the original note were not included. CAMMIE GOINS DO, [facility] LAPAROSCOPY, BARIATRIC AND ROBOTIC SURGERY [facility] REPORT 06/21/24 PATIENT: Jacky Ellis DATE OF : 1950 PROCEDURE: OPEN RECURRENT (>10 CM) INCISIONAL HERNIA (INCARCERATED) REPAIR WITH LYSIS OF INTRAABDOMINAL ADHESIONS (93467) IMPLANTATION OF MESH RIGHT MYOCUTANEOUS FLAP (33566) LEFT MYOCUTANEOUS FLAP (89248, Modifier 59) DEBRIDEMENT OF SKIN, MUSCLE, AND FASCIA EXCISION, SMALL INTESTINE LESION WITHOUT ANASTOMOSIS (47657) NEGATIVE PRESSURE WOUND VAC THERAPY (PREVENA) >50 ( 30 cm x 3 cm x 1 cm) (49528) SURGEON: Antione Cardenas DO PHOTOGRAMMETRIC SURVEYOR: Earline Lew PA-C was asked to assist on this case as qualified residents were not available. PRE-OPERATIVE DIAGNOSES: RECURRENT (>10 CM) INCISIONAL HERNIA (INCARCERATED) Abnormal CT scan of the abdomen and pelvis Abdominal Pain History of heart attack History of stroke CHF with preserved ejection fraction History of umbilical hernia repair History of small bowel resection History of prior CABG Liver cirrhosis POST-OPERATIVE DIAGNOSES: Same, no identifiable mesh, excised small intestine lesion ANESTHESIA: General endotracheal, Transverse abdominis plane block FLUIDS: Per anesthesia ESTIMATED BLOOD LOSS: 10 mL URINE OUTPUT: Per anesthesia CONSENT: The patient was seen in the preoperative area. The details of the procedure were discussed including the risks, benefits, complications, alternatives, expected recovery and outcomes. The site of surgery was properly noted/marked if necessary per policy. INFECTION CONTROL: Procedure appropriate prophylactic antibiotic(s) given within 1 hour of surgical incision (two hours if receiving Vancomycin or flouroquinolone) No Infection Present SPECIMENS: ID Type Source Tests Collected by Time 1 : INTESTINAL MASS Tissue Abdominal Wall TISSUE EXAM Antione Cardenas, DO 06/21/2024 0833 2 : DEBRIDED CONTENTS Tissue Abdominal Wall TISSUE EXAM Antione Jaja, DO 06/21/2024 0916 COMPLICATIONS: None; patient tolerated the procedure well. PREOPERATIVE MEDICATIONS: Pre-operative IV antibiotics: Clindamycin INDICATIONS FOR PROCEDURE: The patient is a 73 y.o. male with a large RECURRENT (>10 CM) INCISIONAL HERNIA (INCARCERATED) . The patient was evaluated and abdominal wall reconstruction was recommended. The risks, benefits and options of the procedure and additional possible interventions were reviewed and all questions were answered to the patient's satisfaction. DESCRIPTION OF PROCEDURE: Time Out, Prepping and Draping The patient was transported to the operating room and identified by name and number. The patient was placed on the operating room table in the supine position and general endotracheal anesthesia was administered by members of the anesthesia team. Following placement of sequential compression devices, OG and killian catheter, the patients extremities were positioned and protected. The abdomen was prepped and draped in standard surgical fashion. An operating room team time out was performed confirming the identity of the patient and the planned procedure. Abdominal Entry, Evaluation, Adhesiolysis Using a ten-blade scalpel, a midline incision was made from below xyphoid to above the pubis along pre marked lines. Previous scar was incorporated in an ellipsoid incision. Dissection was performed with electrocautery down to the level of the deep fascia. Limited lateral undermining was performed. Meticulous hemostatic technique was exercised throughout the procedure to minimize blood loss. The abdomen was then entered. The abdominal cavity was then inspected and significant adhesions to the anterior abdominal wall and small bowel was noted. A lysis of adhesions was performed. During this lysis, a small lesion was noted near the previous small bowel anastomosis. This lesion was resected in its entirety with sharp scissors and passed off as a separate specimen. Hemostasis was confirmed. Resected region of the small intestine appeared unremarkable without succus and with uninjured serosa. Next, the hernia was assessed and found to be large defect measuring 11 cm in total length. Incisional Hernia Repair, RIGHT Retro Rectus Release, Myocutaneous Flap We now proceeded with our right retro rectus release. The right rectus sheath was incised near the midline, on the posterior aspect, as close to the the junction of anterior and posterior rectus sheath, to preserve largest possible area of posterior rectus sheath. The posterior sheath was then leaving the rectus muscle attached to the anterior rectus sheath. Care was taken not to separate the epigastric vessels leaving them with the rectus muscle. The posterior rectus sheath was laterally up to the neurovascular bundles traveling towards and entering the rectus muscle. These were identified and preserved and dissection limited to the extent of their uninjured course. The superior and inferior extents of the dissection were the xyphoid and space of retzius below the pubic tubercle respectfully. Next, the myocutaneous flap was medialized. Incisional Hernia Repair, LEFT Retro Rectus Release, Myocutaneous Flap We now proceeded with our left retro rectus release. The left rectus sheath was incised near the midline, on the posterior aspect, as close to the the junction of anterior and posterior rectus sheath, to preserve largest possible area of posterior rectus sheath. The posterior sheath was then leaving the rectus muscle attached to the anterior rectus sheath. Care was taken not to separate the epigastric vessels leaving them with the rectus muscle. The posterior rectus sheath was laterally up to the neurovascular bundles traveling towards and entering the rectus muscle. These were identified and preserved and dissection limited to the extent of their uninjured course. The superior and inferior extents of the dissection were the xyphoid and space of retzius below the pubic tubercle respectfully. Next, the myocutaneous flap was medialized. Debridement of Skin, Muscle, Fascia - Non-Necrotizing Following medialization of both myocutaneous flaps, the anterior fascia reached midline tension free. We assessed the dermis, subcutaneous tissue, muscle and fascia. Wound edges appeared non-viable and Non-Necrotizing . We now proceeded with debridement of all non-viable dermis, subcutaneous tissue, muscle and fascia. This debridement was performed with a combination of sharp and electrocautery removal. Following debridement, all muscle and fascial edges appeared viable with bleeding and firing response to electrocautery. Hemostasis was obtained. Posterior Rectus Sheath/Peritoneum Closure At the conclusion of dissection, the both sides of fascia easily reached midline without tension. A preliminary sponge needle and instrument count was performed and was correct. Next, the posterior rectus sheath/peritoneum was closed with and 0-vicryl suture closing the peritoneal cavity in its entirety. The retro rectus space was inspected and hemostasis was confirmed. Mesh Implantation The retro rectus space was measured and a 25 x 20 cm sheet of Roxobel Synecor mesh was selected. This was first placed in the retropubic space. One 19-Czech David drains were placed in the retro rectus space and the retropubic space. The mesh was then placed flatly in the retro rectus space and Vistaseal was applied. Fascial Closure We now proceeded with anterior fascial closure. A #1 STRATAFIX symmetric PDS suture was run superiorly. This was repeated inferiorly until the defect was closed. Closure and Negative Pressure Wound Vac Therapy The subcutaneous tissue was then copiously irrigated with 1 L of warm saline. Vistaseal was applied. A subcutaneous drain was placed. The skin flaps were approximated and sutured together in several layers: Running 4-0 PDS for essie's fascia and interrupted 3-0 Vicryl for the deep dermis. Arun were used to close the skin. An incisional vac ( 30 cm x 3 cm x 1 cm) was applied. Conclusion The needle, sponge and instrument counts were correct. The patient tolerated the procedure and the anesthesia well without any major complications. The peak airway pressures were observed and deemed within normal limits. The patients was transported to the post-anesthesia care unit in stable condition. I was present for the entire duration of the procedure. [facility] 06-21-2024 Procedure note Date: 06/21/2024 Location: [facility] OR Name: Jacky Ellis, : 1950, Diagnosis Pre-op Diagnosis * Incisional hernia without obstruction or gangrene [K43.2] Post-op Diagnosis * Incisional hernia without obstruction or gangrene [K43.2] Procedures OPEN INCISIONAL HERNIA REPAIR WITH MESH 67273 - CO RPR AA HERNIA 1ST 3-10 CM NCRC8/STRANGULATED POSSIBLE COMPONENT SEPARATION 61829 - CO MUSC MYOCUTANEOUS/FASCIOCUTANEOUS FLAP TRUNK Surgeons * Antione Cardenas - Primary Kayleigh Lim PGY3 Procedure Summary Anesthesia: General ASA: III Estimated Blood Loss: 100cc Drains: Closed/Suction Drain Lateral RUQ Bulb 19 Fr. (Active) Dressing Status Clean, dry & intact 06/21/24 1015 Drainage Appearance Bloody 06/21/24 1015 Status To bulb suction 06/21/24 1015 Accordion/Bulb/Other Output (mL) 20 mL 06/21/24 1731 Closed/Suction Drain Lateral RLQ Bulb 19 Fr. (Active) Dressing Status Clean, dry & intact 06/21/24 1015 Drainage Appearance Bloody 06/21/24 1015 Status To bulb suction 06/21/24 1015 Accordion/Bulb/Other Output (mL) 10 mL 06/21/24 1731 Urethral Catheter Straight-tip (Active) Catheter Indications Short-term following a surgical procedure (i.e. Urological or Gynecological) or active irrigation 06/21/24 1459 Site Assessment Clean;Skin intact 06/21/24 1459 Collection Container Standard drainage bag 06/21/24 1459 Securement Method Securing device 06/21/24 1459 Catheter Best Practices Drainage tube clipped to bed;Catheter secured to thigh;Tamper seal intact;Bag below bladder;Bag not on floor;Lack of dependent loop in tubing;Drainage bag less than half full 06/21/24 1459 Catheter Status Draining;Patent 06/21/24 1459 Output (mL) 300 mL 06/21/24 1731 Specimens ID Source Type Tests Collected By Collected At Frozen? Priority Lab ID 1 Abdominal Wall Tissue TISSUE EXAM Antione Cardenas DO 06/21/24 0833 No Routine [id number] Description: INTESTINAL MASS 2 Abdominal Wall Tissue TISSUE EXAM Antione Cardenas DO 06/21/24 0916 No Routine [id number] Description: DEBRIDED CONTENTS Implants Type Name Action Serial No. Mesh MESH SURG SYNECOR PRE [id number] - [id number] - [id number] Implanted [id number] Staff: Operator Receptionist: Rosana Steve RN Physician Certified Medical Coder: Earline Lew PA-C Scrub Person: Karla Cottrell RN [place]ior to Circ: Marybel Fisher RN Findings: see full op note Complications: None; patient tolerated the procedure well. Specimens Collected: Order Name Source Comment Collection Info Order Time PROTHROMBIN TIME If patient on coumadin within 4 days prior. Collected By: Marybel Fisher RN 06/21/2024 5:50 AM APTT Blood, Venous Collected By: Marybel Fisher RN 06/21/2024 8:30 AM TISSUE EXAM Abdominal Wall Collected By: Antione Cardenas DO 06/21/2024 8:33 AM Wound Class: Class I: Clean Blood Products: None Prophylactic Antibiotics: Procedure appropriate prophylactic antibiotic(s) given within 1 hour of surgical incision (two hours if receiving Vancomycin or flouroquinolone) Cosigned by Antione Cardenas DO at 06/21/2024 6:01 PM EDT [facility] [employer] Work Phone: 06-21-2024 Attending History and physical note H&P reviewed. The patient was examined and there are no changes to the H&P. Source Note - Mil Orellana APRN - PAINT MIXER MACHINE - 05/29/2024 11:00 AM EST Images from the original note were not included. Comprehensive Pre Surgical History and Physical ? Name: Jacky Ellis : 1950 (Age-73 y.o.) Date of Service: Pt seen/examined on 05/29/2024 Procedure Information Date/Time: 06/21/24 0730 Procedures: OPEN INCISIONAL HERNIA REPAIR WITH MESH (Abdomen) - THIS CASE REQUIES 2.5 HOURS POSSIBLE COMPONENT SEPARATION Location: [facility] OR [address] [place] [address] Operating Room Surgeons: Antione Cardenas DO Chief Complaint: Incisional hernia without obstruction or gangrene ASSESSMENT/PLAN: intermediate level 2 risk procedure/surgery () with no reducible risk factors. Based on the above evaluation, the benefits of the planned procedure likely exceed the risks. The patient is medically optimized to proceed with the planned procedure without any further cardiopulmonary testing. 1) Incisional hernia without obstruction or gangrene - Managed per surgery 2) Hx Afib and Hx CVA (remote MRI findings prior to 09/2023) Xarelto and Metoprolol Will hold Xarelto 3 days per cardiology clearance form- Dr. 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 Saba CABG- 3 vessel Farxiga Lipitor Coreg Entresto 4) Hx aortic aneurysm Repaired 2020 per clearance note chart review Follows with vascular at [place] every 2 years now per pt 5) CKD Labs collected per protocol 6) T2DM history A1c collected in [facility] No current meds 7) Chronic pain Follows with [facility] mgmt [facility] Oxy IR every 8 hours Visit Type: Pre-Admission Testing Visit Labs Ordered: YES - PER [facility] PROTOCOL Sleep Referral Ordered: NO - NEGATIVE SCREEN PER SLEEP REFERRAL PROTOCOL Total time spent (which include face to face and non face to face encounters) : 45 minutes Toxic drug monitoring/narrow therapeutic index drug monitoring : # Drug name : multiple # Route administered : oral # Method of monitoring : labs and ekg PAT Protocol referenced includes: 1. Anesthesia Lab Protocol Orders 2. Perioperative Cardiovascular Risk Assessment 3. Anesthesia Assessment 4. Pain Assessment and Acute Pain Service Consult (if appropriate) 5. Medical Clearance/Consult from Internal Medicine ([facility]) 6. Shower/Wash Order (for designated surgeries) 7. TON Screen and Sleep Clinic Referral (if appropriate) Patient did not name a surrogate decision-maker or provide an advance care plan History Of Present Illness: 73 y.o. male who we are asked to see/evaluate by Dr. Cardenas for pre-operative evaluation prior to above procedure. Do you have a history of chronic opioid use? YES ? Past Medical History: Past Medical History: No date: Arthritis No date: Back pain Comment: lower No date: Heart attack (HCC) No date: Hypertension 12/04/2020: Lobar pneumonia, unspecified organism (HCC) No date: Scoliosis 2020: Stroke (HCC) Comment: patient denies h/o CVA Past Surgical History: Past Surgical History: No date: ABLATION FOR ATRIAL FIBRILLATION (HISTORICAL) 2020: CARDIAC SURGERY No date: COLONOSCOPY No date: CORONARY ARTERY BYPASS GRAFT No date: DENTAL SURGERY 1958: HERNIA REPAIR; Right Comment: RIH No date: RT/LT HEART CATHETERS (HISTORICAL) Comment: TRIPLE BYPASS THREE VALUES No date: SHOULDER SURGERY 08/2022: SMALL INTESTINE SURGERY Comment: SBR 2022: SPINAL CORD STIMULATOR IMPLANT No date: TONSILLECTOMY Comment: 1960 No date: TOTAL SHOULDER ARTHROPLASTY 08/2022: UMBILICAL HERNIA REPAIR Comment: [place] Medications Prior to Admission: Prior to Admission medications Medication Sig Start Date End Date Taking? Authorizing Provider amiodarone (Pacerone) 200 MG tablet Take 400 mg by mouth daily. 08/16/23 Historical Provider, atorvastatin (Lipitor) 40 MG tablet Take 40 mg by mouth daily. Historical Provider, bumetanide (Bumex) 1 MG tablet Take 1 mg by mouth daily. 11/25/22 Historical Provider, carvedilol (Coreg) 25 MG tablet Take 25 mg by mouth 2 times daily. Historical Provider, Entresto 24-26 MG tablet Take 1 tablet by mouth 2 times daily. Historical Provider, MD More 10 MG tablet Take 10 mg by mouth daily. Historical Provider, HYDROcodone-acetaminophen ([place]) 7.5-325 MG tablet Historical Provider, Xarelto 15 MG tablet Take 15 mg by mouth with evening meal. Historical Provider, CHRONIC NARCOTIC USAGE: Yes - Narcotics Used: [place] Allergies: Dapagliflozin and Penicillins If patient has opioid allergy, is it okay to take Acetaminophen: Yes Social History: TOBACCO: reports that he quit smoking about 50 years ago. His smoking use included cigarettes. He started smoking about 55 years ago. He has a 5 pack-year smoking history. He has never used smokeless tobacco. ETOH: reports that he does not currently use alcohol. Social History Substance and Sexual Activity Drug Use Not Currently Family History: Family History Problem Relation Name Age of Onset Cancer Mother Cancer Father REVIEW OF SYSTEMS: Review of Systems Constitutional: Negative for chills and fever. HENT: Negative for congestion and trouble swallowing. Respiratory: Negative for cough and shortness of breath. Cardiovascular: Negative for chest pain and leg swelling. Gastrointestinal: Positive for abdominal pain. Negative for nausea and vomiting. From hernia Skin: Negative for rash. Neurological: Negative for weakness and headaches. Physical Exam: Physical Exam Constitutional: Appearance: Normal appearance. HENT: Head: Normocephalic and atraumatic. Mouth/Throat: Mouth: Mucous membranes are moist. Pharynx: Oropharynx is clear. Eyes: Pupils: Pupils are equal, round, and reactive to light. Cardiovascular: Rate and Rhythm: Normal rate. Pulmonary: Effort: Pulmonary effort is normal. Breath sounds: Normal breath sounds. Abdominal: Comments: Large incisional hernia Musculoskeletal: General: Normal range of motion. Cervical back: Normal range of motion. Skin: General: Skin is warm and dry. Capillary Refill: Capillary refill takes less than 2 seconds. Neurological: General: No focal deficit present. Mental Status: He is alert and oriented to person, place, and time. Psychiatric: Mood and Affect: Mood normal. Behavior: Behavior normal. Vitals: Vitals Value Taken Time BP 101/78 05/29/24 1138 Temp 35.6 C (96.1 F) 05/29/24 1138 Pulse 84 05/29/24 1138 Resp 20 05/29/24 1138 SpO2 96 % 05/29/24 1138 Labs collected in [facility] Labs: Lab Results Component Value Date WBC 6.3 02/04/2024 HGB 16.5 02/04/2024 HCT 49.9 02/04/2024 MCV 94.0 02/04/2024 PLT 167 02/04/2024 Lab Results Component Value Date CO2 26 02/04/2024 BUN 23 02/04/2024 CREATININE 1.46 (H) 02/04/2024 GLUCOSE 93 02/04/2024 CALCIUM 9.6 02/04/2024 PROT 7.0 02/04/2024 ALKPHOS 127 02/04/2024 AST 24 02/04/2024 ALT 24 02/04/2024 EGFR 50 (L) 02/04/2024 GLOB 2.7 02/04/2024 Alessio's Simple Cardiac Risk Index: ALESSIO'S SIMPLE CARDIAC RISK SCORE: 3 Interpretation: 0 Points Class I 0.5% 1 Point Class II 1.3% 2 Points Class III 3.6% 3+ Points Class IV 9.1% PAT Pain Score: Pain Score: 6 Postop Pain Management Plan (Pain consult ordered?): Chronic pain diagnosis - Pain consult recommended, will defer consult to surgical team. ? EKG: Copied from Cardiac Clearance in media tab- unable to enlarge- see media tab for details ECHO and EF: 09/2023 Results found in cardiac clearance form in media tab. EF 50% METS <4 due to incisional hernia pain per patient Electronically signed by: VIRAJ Becerra CNP Date: 05/29/2024 at 12:41 PM Cosigned by Tyler Pittman DO at 05/29/2024 9:30 PM EST [facility]24 Note H&P reviewed. The pa katya was examined and there are no changes to the H&P. [facility] 06-21-2024 History and physical note H&P reviewed. The patient was examined and there are no changes to the H&P. Source Note - VIRAJ Jimenes CNP - 05/29/2024 11:00 AM EST Images from the original note were not included. Comprehensive Pre Surgical History and Physical ? Name: Jacky Ellis : 1950 (Age-73 y.o.) Date of Service: Pt seen/examined on 05/29/2024 Procedure Information Date/Time: 06/21/24 9417 Procedures: OPEN INCISIONAL HERNIA REPAIR WITH MESH (Abdomen) - THIS CASE REQUIES 2.5 HOURS POSSIBLE COMPONENT SEPARATION Location: [facility] OR [address] [place] [address] Operating Room Surgeons: Antione Cardenas DO Chief Complaint: Incisional hernia without obstruction or gangrene ASSESSMENT/PLAN: intermediate level 2 risk procedure/surgery () with no reducible risk factors. Based on the above evaluation, the benefits of the planned procedure likely exceed the risks. The patient is medically optimized to proceed with the planned procedure without any further cardiopulmonary testing. 1) Incisional hernia without obstruction or gangrene - Managed per surgery 2) Hx Afib and Hx CVA (remote MRI findings prior to 09/2023) Xarelto and Metoprolol Will hold Xarelto 3 days per cardiology clearance form- Dr. 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 Saba CABG- 3 vessel Farxiga Lipitor Coreg Entresto 4) Hx aortic aneurysm Repaired 2020 per clearance note chart review Follows with vascular at [place] every 2 years now per pt 5) CKD Labs collected per protocol 6) T2DM history A1c collected in [facility] No current meds 7) Chronic pain Follows [facility] Oxy IR every 8 hours Visit Type: Pre-Admission Testing Visit Labs Ordered: YES - PER PAT PROTOCOL Sleep Referral Ordered: NO - NEGATIVE SCREEN PER SLEEP REFERRAL PROTOCOL Total time spent (which include face to face and non face to face encounters) : 45 minutes Toxic drug monitoring/narrow therapeutic index drug monitoring : # Drug name : multiple # Route administered : oral # Method of monitoring : labs and ekg PAT Protocol referenced includes: 1. Anesthesia Lab Protocol Orders 2. Perioperative Cardiovascular Risk Assessment 3. Anesthesia Assessment 4. Pain Assessment and Acute Pain Service Consult (if appropriate) 5. Medical Clearance/Consult from Internal Medicine (IMS) 6. Shower/Wash Order (for designated surgeries) 7. TON Screen and Sleep Clinic Referral (if appropriate) Patient did not name a surrogate decision-maker or provide an advance care plan History Of Present Illness: 73 y.o. male who we are asked to see/evaluate by Dr. Cardenas for pre-operative evaluation prior to above procedure. Do you have a history of chronic opioid use? YES ? Past Medical History: Past Medical History: No date: Arthritis No date: Back pain Comment: lower No date: Heart attack (HCC) No date: Hypertension 12/04/2020: Lobar pneumonia, unspecified organism (HCC) No date: Scoliosis 2020: Stroke (HCC) Comment: patient denies h/o CVA Past Surgical History: Past Surgical History: No date: ABLATION FOR ATRIAL FIBRILLATION (HISTORICAL) 2020: CARDIAC SURGERY No date: COLONOSCOPY No date: CORONARY ARTERY BYPASS GRAFT No date: DENTAL SURGERY 1958: HERNIA REPAIR; Right Comment: RIH No date: RT/LT HEART CATHETERS (HISTORICAL) Comment: TRIPLE BYPASS THREE VALUES No date: SHOULDER SURGERY 08/2022: SMALL INTESTINE SURGERY Comment: SBR 2022: SPINAL CORD STIMULATOR IMPLANT No date: TONSILLECTOMY Comment: 1960 No date: TOTAL SHOULDER ARTHROPLASTY 08/2022: UMBILICAL HERNIA REPAIR Comment: [place] Medications Prior to Admission: Prior to Admission medications Medication Sig Start Date End Date Taking? Authorizing Provider amiodarone (Pacerone) 200 MG tablet Take 400 mg by mouth daily. 08/16/23 Historical Provider, atorvastatin (Lipitor) 40 MG tablet Take 40 mg by mouth daily. Historical Provider, bumetanide (Bumex) 1 MG tablet Take 1 mg by mouth daily. 11/25/22 Historical Provider, carvedilol (Coreg) 25 MG tablet Take 25 mg by mouth 2 times daily. Historical Provider, Entresto 24-26 MG tablet Take 1 tablet by mouth 2 times daily. Historical Provider, Farxiga 10 MG tablet Take 10 mg by mouth daily. Historical Provider, HYDROcodone-acetaminophen ([place]) 7.5-325 MG tablet Historical Provider, Xarelto 15 MG tablet Take 15 mg by mouth with evening meal. Historical Provider, CHRONIC NARCOTIC USAGE: Yes - Narcotics Used: [place] Allergies: Dapagliflozin and Penicillins If patient has opioid allergy, is it okay to take Acetaminophen: Yes Social History: TOBACCO: reports that he quit smoking about 50 years ago. His smoking use included cigarettes. He started smoking about 55 years ago. He has a 5 pack-year smoking history. He has never used smokeless tobacco. ETOH: reports that he does not currently use alcohol. Social History Substance and Sexual Activity Drug Use Not Currently Family History: Family History Problem Relation Name Age of Onset Cancer Mother Cancer Father REVIEW OF SYSTEMS: Review of Systems Constitutional: Negative for chills and fever. HENT: Negative for congestion and trouble swallowing. Respiratory: Negative for cough and shortness of breath. Cardiovascular: Negative for chest pain and leg swelling. Gastrointestinal: Positive for abdominal pain. Negative for nausea and vomiting. From hernia Skin: Negative for rash. Neurological: Negative for weakness and headaches. Physical Exam: Physical Exam Constitutional: Appearance: Normal appearance. HENT: Head: Normocephalic and atraumatic. Mouth/Throat: Mouth: Mucous membranes are moist. Pharynx: Oropharynx is clear. Eyes: Pupils: Pupils are equal, round, and reactive to light. Cardiovascular: Rate and Rhythm: Normal rate. Pulmonary: Effort: Pulmonary effort is normal. Breath sounds: Normal breath sounds. Abdominal: Comments: Large incisional hernia Musculoskeletal: General: Normal range of motion. Cervical back: Normal range of motion. Skin: General: Skin is warm and dry. Capillary Refill: Capillary refill takes less than 2 seconds. Neurological: General: No focal deficit present. Mental Status: He is alert and oriented to person, place, and time. Psychiatric: Mood and Affect: Mood normal. Behavior: Behavior normal. Vitals: Vitals Value Taken Time BP 101/78 05/29/24 1138 Temp 35.6 C (96.1 F) 05/29/24 1138 Pulse 84 05/29/24 1138 Resp 20 05/29/24 1138 SpO2 96 % 05/29/24 1138 Labs collected in [facility] Labs: Lab Results Component Value Date WBC 6.3 02/04/2024 HGB 16.5 02/04/2024 HCT 49.9 02/04/2024 MCV 94.0 02/04/2024 PLT 167 02/04/2024 Lab Results Component Value Date CO2 26 02/04/2024 BUN 23 02/04/2024 CREATININE 1.46 (H) 02/04/2024 GLUCOSE 93 02/04/2024 CALCIUM 9.6 02/04/2024 PROT 7.0 02/04/2024 ALKPHOS 127 02/04/2024 AST 24 02/04/2024 ALT 24 02/04/2024 EGFR 50 (L) 02/04/2024 GLOB 2.7 02/04/2024 Alessio's Simple Cardiac Risk Index: ALESSIO'S SIMPLE CARDIAC RISK SCORE: 3 Interpretation: 0 Points Class I 0.5% 1 Point Class II 1.3% 2 Points Class III 3.6% 3+ Points Class IV 9.1% PAT Pain Score: Pain Score: 6 Postop Pain Management Plan (Pain consult ordered?): Chronic pain diagnosis - Pain consult recommended, will defer consult to surgical team. ? EKG: Copied from Cardiac Clearance in media tab- unable to enlarge- see media tab for details ECHO and EF: 09/2023 Results found in cardiac clearance form in media tab. EF 50% METS <4 due to incisional hernia pain per patient Electronically signed by: VIRAJ Becerra CNP Date: 05/29/2024 at 12:41 PM Cosigned by Tyler Pittman DO at 05/29/2024 9:30 PM EST documented in this encounter [facility] 05-29-2024 Telephone encounter Note Received OV from pain management on 05/26/24 - patient to discontinue [place] 7.5 and start oxycodone 5 TID PRN. Per notes, postop pain to be controlled by surgeon, but happy to help if needed. [facility] 05-29-2024 Miscellaneous Notes Received OV from pain management on 05/26/24 - patient to discontinue [place] 7.5 and start oxycodone 5 TID PRN. Per notes, postop pain to be controlled by surgeon, but happy to help if needed. Called patient's pain management group - [facility]. Asked about specific pain management recs following surgery. She will give me a call back after she speaks to Dr. Sargent. documented in this encounter [facility] 05-29-2024 Note Patient: Jacky torres Procedure Information Date/Time: 06/21/24 0730 Procedures: OPEN INCISIONAL HERNIA REPAIR WITH MESH (Abdomen) - THIS CASE REQUIES 2.5 HOURS POSSIBLE COMPONENT SEPARATION Location: [facility] OR [address] [place] [address] Operating Room Surgeons: Antione Cardenas, DO Relevant Problems Anesthesia (within normal limits) Cardio (+) Aneurysm, thoracic aortic (HCC) (+) Aortic root dilation (HCC) (+) Arteriosclerosis of coronary artery (+) Atrial fibrillation (HCC) (+) Coronary artery fistula (+) Dissection of thoracic aorta (HCC) (+) Essential (primary) hypertension (+) Hx of CABG (+) Hyperlipidemia (+) Hyperlipidemia, unspecified (+) Right bundle-branch block Endo (+) Type 2 diabetes mellitus with diabetic chronic kidney disease (HCC) (+) Type II diabetes mellitus (HCC) /Renal (+) Acute renal failure (HCC) (+) Chronic kidney disease, stage 2 (mild) (+) Stage 2 chronic kidney disease (+) Type 2 diabetes mellitus with diabetic chronic kidney disease (HCC) Pulmonary (+) Dependence on supplemental oxygen Past Medical History: Past Medical History: No date: Arthritis No date: Back pain Comment: lower No date: Heart attack (HCC) No date: Hypertension 12/04/2020: Lobar pneumonia, unspecified organism (HCC) No date: Scoliosis 2020: Stroke (HCC) Comment: patient denies h/o CVA Past Surgical History: Past Surgical History: No date: ABLATION FOR ATRIAL FIBRILLATION (HISTORICAL) 2020: CARDIAC SURGERY No date: COLONOSCOPY No date: CORONARY ARTERY BYPASS GRAFT No date: DENTAL SURGERY 1958: HERNIA REPAIR; Right Comment: RIH No date: RT/LT HEART CATHETERS (HISTORICAL) Comment: TRIPLE BYPASS THREE VALUES No date: SHOULDER SURGERY 08/2022: SMALL INTESTINE SURGERY Comment: SBR 2022: SPINAL CORD STIMULATOR IMPLANT No date: TONSILLECTOMY Comment: 1960 No date: TOTAL SHOULDER ARTHROPLASTY 08/2022: UMBILICAL HERNIA REPAIR Comment: [place] Social History: TOBACCO: reports that he quit smoking about 50 years ago. His smoking use included cigarettes. He started smoking about 55 years ago. He has a 5 pack-year smoking history. He has never used smokeless tobacco. ETOH: reports that he does not currently use alcohol. Social History Substance and Sexual Activity Drug Use Not Currently Family History: Family History Problem Relation Name Age of Onset Cancer Mother Cancer Father Screening: unknown Clinical information reviewed: Tobacco Allergies Meds Med Hx Surg Hx Fam Hx Soc Hx Physical Exam Airway Mallampati: II TM distance: >3 FB Neck ROM: full Mouth Open: normal Cardiovascular Dental (+) Upper Dentures, Lower Dentures Pulmonary Abdominal Anesthesia Plan patient is NPO appropriate Any family history or previous problems with anesthesia no ASA 3 general and regional Any family history or previous problems with anesthesia no The patient is not a current smoker. Anesthetic plan and risks discussed with patient and legal guardian. Anesthesia Farah Considerations Patient has normal LV, S/P CABG x 3. S/P Repair of Thoracic Aneurysm. PATIENT HAS A SPINAL CORD STIMULATOR WHICH IS TURNED OFF Patient is listed as DM on med record TON Screening Negative- pt reports he is not dependent on supplemental oxygen Labs collected in [facility] Labs: Lab Results Component Value Date WBC 6.3 02/04/2024 HGB 16.5 02/04/2024 HCT 49.9 02/04/2024 MCV 94.0 02/04/2024 PLT 167 02/04/2024 Lab Results Component Value Date SODIUM 142 02/04/2024 POTASSIUM 4.6 02/04/2024 CHLORIDE 106 02/04/2024 CO2 26 02/04/2024 BUN 23 02/04/2024 CREATININE 1.46 (H) 02/04/2024 GLUCOSE 93 02/04/2024 CALCIUM 9.6 02/04/2024 PROT 7.0 02/04/2024 ALKPHOS 127 02/04/2024 AST 24 02/04/2024 ALT 24 02/04/2024 EGFR 50 (L) 02/04/2024 GLOB 2.7 02/04/2024 Pain Score: 6 EKG in PAT No echocardiogram results found for the past 14 days No results found for this or any previous visit. Equipment Requests: Additional Equipment Requests Other Requests: From 03/17/2024 - TTE shows normal EF with no significant valve abnormalities. Cath shows Rcx 100% stenosis with collateralization Block Team [facility] 05-29-2024 Note Comprehensive Pre Ngo rgical History and Physical ? Name: Jacky Ellis : 1950 (Age-73 y.o.) Date of Service: Pt seen/examined on 05/29/2024 Procedure Information Date/Time: 06/21/24 0730 Procedures: OPEN INCISIONAL HERNIA REPAIR WITH MESH (Abdomen) - THIS CASE REQUIES 2.5 HOURS POSSIBLE COMPONENT SEPARATION Location: [facility] OR [address] [place] [address] Operating Room Surgeons: Antione Cardenas DO Chief Complaint: Incisional hernia without obstruction or gangrene ASSESSMENT/PLAN: intermediate level 2 risk procedure/surgery () with no reducible risk factors. Based on the above evaluation, the benefits of the planned procedure likely exceed the risks. The patient is medically optimized to proceed with the planned procedure without any further cardiopulmonary testing. 1) Incisional hernia without obstruction or gangrene - Managed per surgery 2) Hx Afib and Hx CVA (remote MRI findings prior to 09/2023) Xarelto and Metoprolol Will hold Xarelto 3 days per cardiology clearance form- Dr. 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 Saba CABG- 3 vessel Farxiga Lipitor Coreg Entresto 4) Hx aortic aneurysm Repaired 2020 per clearance note chart review Follows with vascular at [place] every 2 years now per pt 5) CKD Labs collected per protocol 6) T2DM history A1c collected in PAT No current meds 7) Chronic pain [facility] [place] Oxy IR every 8 hours Visit Type: Pre-Admission Testing Visit Labs Ordered: YES - PER PAT PROTOCOL Sleep Referral Ordered: NO - NEGATIVE SCREEN PER SLEEP REFERRAL PROTOCOL Total time spent (which include face to face and non face to face encounters) : 45 minutes Toxic drug monitoring/narrow therapeutic index drug monitoring : # Drug name : multiple # Route administered : oral # Method of monitoring : labs and ekg PAT Protocol referenced includes: 1. Anesthesia Lab Protocol Orders 2. Perioperative Cardiovascular Risk Assessment 3. Anesthesia Assessment 4. Pain Assessment and Acute Pain Service Consult (if appropriate) 5. Medical Clearance/Consult from Internal Medicine (IMS) 6. Shower/Wash Order (for designated surgeries) 7. TON Screen and Sleep Clinic Referral (if appropriate) Patient did not name a surrogate decision-maker or provide an advance care plan History Of Present Illness: 73 y.o. male who we are asked to see/evaluate by Dr. Cardenas for pre-operative evaluation prior to above procedure. Do you have a history of chronic opioid use? YES ? Past Medical History: Past Medical History: No date: Arthritis No date: Back pain Comment: lower No date: Heart attack (HCC) No date: Hypertension 12/04/2020: Lobar pneumonia, unspecified organism (HCC) No date: Scoliosis 2020: Stroke (HCC) Comment: patient denies h/o CVA Past Surgical History: Past Surgical History: No date: ABLATION FOR ATRIAL FIBRILLATION (HISTORICAL) 2020: CARDIAC SURGERY No date: COLONOSCOPY No date: CORONARY ARTERY BYPASS GRAFT No date: DENTAL SURGERY 1958: HERNIA REPAIR; Right Comment: [facility] No date: RT/LT HEART CATHETERS (HISTORICAL) Comment: TRIPLE BYPASS THREE VALUES No date: SHOULDER SURGERY 08/2022: SMALL INTESTINE SURGERY Comment: SBR 2022: SPINAL CORD STIMULATOR IMPLANT No date: TONSILLECTOMY Comment: 1960 No date: TOTAL SHOULDER ARTHROPLASTY 08/2022: UMBILICAL HERNIA REPAIR Comment: [place] Medications Prior to Admission: Prior to Admission medications Medication Sig Start Date End Date Taking? Authorizing Provider amiodarone (Pacerone) 200 MG tablet Take 400 mg by mouth daily. 08/16/23 Historical Provider, atorvastatin (Lipitor) 40 MG tablet Take 40 mg by mouth daily. Historical Provider, bumetanide (Bumex) 1 MG tablet Take 1 mg by mouth daily. 11/25/22 Historical Provider, carvedilol (Coreg) 25 MG tablet Take 25 mg by mouth 2 times daily. Historical Provider, Entresto 24-26 MG tablet Take 1 tablet by mouth 2 times daily. Historical Provider, Farxiga 10 MG tablet Take 10 mg by mouth daily. Historical Provider, HYDROcodone-acetaminophen ([place]) 7.5-325 MG tablet Historical Provider, Xarelto 15 MG tablet Take 15 mg by mouth with evening meal. Historical Provider, CHRONIC NARCOTIC USAGE: Yes - Narcotics Used: [place] Allergies: Dapagliflozin and Penicillins If patient has opioid allergy, is it okay to take Acetaminophen: Yes Social History: TOBACCO: reports that he quit smoking about 50 years ago. His smoking use included cigarettes. He started smoking about 55 years ago. He has a 5 pack-year (more content not included)... [facility] 05-29-2024 Note Comprehensive Pre Ngo rgical History and Physical ? Name: Jacky Ellis : 1950 (Age-73 y.o.) Date of Service: Pt seen/examined on 05/29/2024 Procedure Information Date/Time: 06/21/24 5430 Procedures: OPEN INCISIONAL HERNIA REPAIR WITH MESH (Abdomen) - THIS CASE REQUIES 2.5 HOURS POSSIBLE COMPONENT SEPARATION Location: [facility] OR [address] [place] [address] Operating Room Surgeons: Antione Cardenas DO Chief Complaint: Incisional hernia without obstruction or gangrene ASSESSMENT/PLAN: intermediate level 2 risk procedure/surgery () with no reducible risk factors. Based on the above evaluation, the benefits of the planned procedure likely exceed the risks. The patient is medically optimized to proceed with the planned procedure without any further cardiopulmonary testing. 1) Incisional hernia without obstruction or gangrene - Managed per surgery 2) Hx Afib and Hx CVA (remote MRI findings prior to 09/2023) Xarelto and Metoprolol Will hold Xarelto 3 days per cardiology clearance form- Dr. 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 Saba CABG- 3 vessel Farxiga Lipitor Coreg Entresto 4) Hx aortic aneurysm Repaired 2020 per clearance note chart review Follows with vascular at [place] every 2 years now per pt 5) CKD Labs collected per protocol 6) T2DM history A1c collected in [facility] No current meds 7) Chronic pain Follows [facility] Oxy IR every 8 hours Visit Type: Pre-Admission Testing Visit Labs Ordered: YES - PER PAT PROTOCOL Sleep Referral Ordered: NO - NEGATIVE SCREEN PER SLEEP REFERRAL PROTOCOL Total time spent (which include face to face and non face to face encounters) : 45 minutes Toxic drug monitoring/narrow therapeutic index drug monitoring : # Drug name : multiple # Route administered : oral # Method of monitoring : labs and ekg PAT Protocol referenced includes: 1. Anesthesia Lab Protocol Orders 2. Perioperative Cardiovascular Risk Assessment 3. Anesthesia Assessment 4. Pain Assessment and Acute Pain Service Consult (if appropriate) 5. Medical Clearance/Consult from Internal Medicine (IMS) 6. Shower/Wash Order (for designated surgeries) 7. TON Screen and Sleep Clinic Referral (if appropriate) Patient did not name a surrogate decision-maker or provide an advance care plan History Of Present Illness: 73 y.o. male who we are asked to see/evaluate by Dr. Cardenas for pre-operative evaluation prior to above procedure. Do you have a history of chronic opioid use? YES ? Past Medical History: Past Medical History: No date: Arthritis No date: Back pain Comment: lower No date: Heart attack (HCC) No date: Hypertension 12/04/2020: Lobar pneumonia, unspecified organism (HCC) No date: Scoliosis 2020: Stroke (HCC) Comment: patient denies h/o CVA Past Surgical History: Past Surgical History: No date: ABLATION FOR ATRIAL FIBRILLATION (HISTORICAL) 2020: CARDIAC SURGERY No date: COLONOSCOPY No date: CORONARY ARTERY BYPASS GRAFT No date: DENTAL SURGERY 1958: HERNIA REPAIR; Right Comment: RIH No date: RT/LT HEART CATHETERS (HISTORICAL) Comment: TRIPLE BYPASS THREE VALUES No date: SHOULDER SURGERY 08/2022: SMALL INTESTINE SURGERY Comment: SBR 2022: SPINAL CORD STIMULATOR IMPLANT No date: TONSILLECTOMY Comment: 1961 No date: TOTAL SHOULDER ARTHROPLASTY 08/2022: UMBILICAL HERNIA REPAIR Comment: [place] Medications Prior to Admission: Prior to Admission medications Medication Sig Start Date End Date Taking? Authorizing Provider amiodarone (Pacerone) 200 MG tablet Take 400 mg by mouth daily. 08/16/23 Historical Provider, atorvastatin (Lipitor) 40 MG tablet Take 40 mg by mouth daily. Historical Provider, bumetanide (Bumex) 1 MG tablet Take 1 mg by mouth daily. 11/25/22 Historical Provider, carvedilol (Coreg) 25 MG tablet Take 25 mg by mouth 2 times daily. Historical Provider, Entresto 24-26 MG tablet Take 1 tablet by mouth 2 times daily. Historical Provider, Farxiga 10 MG tablet Take 10 mg by mouth daily. Historical Provider, HYDROcodone-acetaminophen ([place]) 7.5-325 MG tablet Historical Provider, Xarelto 15 MG tablet Take 15 mg by mouth with evening meal. Historical Provider, CHRONIC NARCOTIC USAGE: Yes - Narcotics Used: [place] Allergies: Dapagliflozin and Penicillins If patient has opioid allergy, is it okay to take Acetaminophen: Yes Social History: TOBACCO: reports that he quit smoking about 50 years ago. His smoking use included cigarettes. He started smoking about 55 years ago. He has a 5 pack-year (more content not included)... [facility] 05-25-2024 Telephone encounter Note Called patient's pain management group - [facility]. Asked about specific pain management recs following surgery. She will give me a call back after she speaks to Dr. Sargent. [facility] [employer] 05-25-2024 Telephone encounter Note [facility] mailed to pt through [facility] 05-25-2024 Miscellaneous Notes New [facility]ary mailed to pt through [facility] Spoke to the patient and let him know the surgery has been moved to 06/21/24 at 7:30, arrival time at 5:30. Pt advised to keep original PAT at 05/29/24 at 11:00 Pt post op scheduled 07/07/24 at 1:00 pm Spoke to Gali from [facility], she will fax results Spoke to pt. Pt will get this done tomorrow. Called [facility] - at first they stated they did not have the order. I explained that I personally faxed the order on 05/11. She put me on hold and came back and stated she had the order but they did not draw the blood when he came in on 05/12. They only makeda the blood from a different physician - Dr Maddox. They did not draw the blood ordered from Earline Lew, only from Dr Kowalski. They state the patient did not specify he had orders from more than one physician. She stated she had the order and it was good for a year. Pt had lab work done at [place] a couple of weeks ago and wants the results. documented in this encounter [facility] 05-25-2024 Telephone encounter Note Spoke to the patient and let him know the surgery has been moved to 06/21/24 at 7:30, arrival time at 5:30. Pt advised to keep original PAT at 05/29/24 at 11:00 Pt post op scheduled 07/07/24 at 1:00 pm [facility] 05-24-2024 Telephone encounter Note Spoke to Gali from [facility], she will fax results [facility] 05-24-2024 Miscellaneous Notes Spoke to Gali from [facility], she will fax results Spoke to pt. Pt will get this done tomorrow. Called [facility] - at first they stated they did not have the order. I explained that I personally faxed the order on 05/11. She put me on hold and came back and stated she had the order but they did not draw the blood when he came in on 05/12. They only makeda the blood from a different physician - Dr Maddox. They did not draw the blood ordered from Earline Lew, only from Dr Kowalski. They state the patient did not specify he had orders from more than one physician. She stated she had the order and it was good for a year. Pt had lab work done at [place] a couple of weeks ago and wants the results. documented in this encounter [facility] 05-18-2024 Telephone encounter Note Spoke to pt. Pt will get this done tomorrow. [facility] 05-18-2024 Miscellaneous Notes Spoke to pt. Pt will get this done tomorrow. Called [facility] [place] - at first they stated they did not have the order. I explained that I personally faxed the order on 05/11. She put me on hold and came back and stated she had the order but they did not draw the blood when he came in on 05/12. They only makeda the blood from a different physician - Dr Maddox. They did not draw the blood ordered from Earline Lew, only from Dr Kowalski. They state the patient did not specify he had orders from more than one physician. She stated she had the order and it was good for a year. Pt had lab work done at [place] a couple of weeks ago and wants the results. documented in this encounter [facility] 05-18-2024 Telephone encounter Note Called [facility] - at first they stated they did not have the order. I explained that I personally faxed the order on 05/11. She put me on hold and came back and stated she had the order but they did not draw the blood when he came in on 05/12. They only makeda the blood from a different physician - Dr Maddox. They did not draw the blood ordered from Earline Lew, only from Dr Kowalski. They state the patient did not specify he had orders from more than one physician. She stated she had the order and it was good for a year. [facility] 05-18-2024 Telephone encounter Note Pt had lab work done at [place] a couple of weeks ago and wants the results. [facility] 05-11-2024 Telephone encounter Note Spoke to patient. He would like it faxed to [facility]. Faxed to [facility] - [phone] [facility] 05-11-2024 Miscellaneous Notes Spoke to patient. He would like it faxed to [facility]. Faxed to [facility] - [phone] Addended by: EARLINE LEW on: 05/08/2024 01:02 PM Modules accepted: Orders Order placed for further blood work - checking protein levels. Please have him complete. Can either come to [facility] or order can be sent to him to complete closer to home. Recent lab work reviewed - no protein/prealbumin checked. Will need this re-valuated at the end of the month to make sure protein levels have improved. I have a reminder set. Thanks. Labs uploaded from [employer] Cole called back to confirm the fax # and stated I muffled it in my Vm. I gave the fax # and confirmed she had it. She stated she would send all the labs that she had. I called off again. Tried to get a person so pressed 1. The girl put me through to the nurses line that put me on an extensive hold. After awhile it gave me the option to leave a message. I left a msg and left all the information. Rec'd a call from [facility] asking if I had rec'd the fax. I confirmed I had NOT received the fax. I gave her my email. There is still no email or fax an hour later. Will call back to office if nothing arrives after lunch. LVM on office administration instructor voicemail requesting labs Requested a call back if unable to send for some reason Have left messages and talked to one person LVM to office to fax Confirmed our fax and let them know I did not receive the labs Spoke to Kenan's office and the womanw as going to fax his bloodwork results. Called Dr Grayson's office and had to leave a VM> Unable to talk to a person. Not sure office was opened Requested they fax latest blood work and if they had any questions or were unable to to please call Called the patient to relay below message. He stated there was no reason to go to the ER because all they will do is give me 2 aspirin and slap a bandaid on it Pt states he got his bloodwork last week and Dr Grayson stated his protein levels are much better Pt thought it had been more than 3 mths, confirmed with pt date of last recommendation was the end of Jan . Will call Dr Grayson to get latest bloodwork faxed Images from the original note were not included. Per previous TE - rec'd 3 months of protein shakes to increase protein levels, which will improve postop healing. He will be due for repeat blood work in about 1 month for re-evaluation. Agree with basic wound care for umbilicus - keep site clean with soap and water, dressed with gauze to protect clothes. If this or his abdominal pain worsens, then rec'd ER for evaluation if needed. Otherwise, I will pass this along to Dr. Cardenas for any additional recommendations. For now, will plan for blood work in a month. Thanks. Pt called in and stated he was bleeding out of his navel area. Would like to know when he can get his surgery done. He is using cotton squares, and replacing them every 3 hours. Does not want to go to ED since he stated they will probably just give him a bandage and send him on his way. -Taking 10 mg oxy taking (from pain management). -stated does not have any other symptoms other than abdominal pain Talked with patient and waiting for cardiac clearance. Patient verbalized understanding Pt called today and is asking when is he going to get scheduled for surgery. documented in this encounter [facility] 05-08-2024 Note Addended by: EARLINE LEW on: 05/08/2024 01:02 PM Modules accepted: Orders [facility] 05-08-2024 Note Addended by: EARLINE LEW on: 05/08/2024 01:02 PM Modules accepted: Orders [facility] 05-08-2024 Miscellaneous Notes Addended by: EARLINE LEW on: 05/08/2024 01:02 PM Modules accepted: Orders Order placed for further blood work - checking protein levels. Please have him complete. Can either come to [facility] or order can be sent to him to complete closer to home. Recent lab work reviewed - no protein/prealbumin checked. Will need this re-valuated at the end of the month to make sure protein levels have improved. I have a reminder set. Thanks. Labs uploaded from [employer] oCle called back to confirm the fax # and stated I muffled it in my Vm. I gave the fax # and confirmed she had it. She stated she would send all the labs that she had. I called off again. Tried to get a person so pressed 1. The girl put me through to the nurses line that put me on an extensive hold. After awhile it gave me the option to leave a message. I left a msg and left all the information. Rec'd a call from [facility] asking if I had rec'd the fax. I confirmed I had NOT received the fax. I gave her my email. There is still no email or fax an hour later. Will call back to office if nothing arrives after lunch. LVM on office administration instructor voicemail requesting labs Requested a call back if unable to send for some reason Have left messages and talked to one person LVM to office to fax Confirmed our fax and let them know I did not receive the labs Spoke to Kenan's office and the womanw as going to fax his bloodwork results. Called Dr rGayson's office and had to leave a VM> Unable to talk to a person. Not sure office was opened Requested they fax latest blood work and if they had any questions or were unable to to please call Called the patient to relay below message. He stated there was no reason to go to the ER because all they will do is give me 2 aspirin and slap a bandaid on it Pt states he got his bloodwork last week and Dr Grayson stated his protein levels are much better Pt thought it had been more than 3 mths, confirmed with pt date of last recommendation was the end of Jan . Will call Dr Grayson to get latest bloodwork faxed Images from the original note were not included. Per previous TE - rec'd 3 months of protein shakes to increase protein levels, which will improve postop healing. He will be due for repeat blood work in about 1 month for re-evaluation. Agree with basic wound care for umbilicus - keep site clean with soap and water, dressed with gauze to protect clothes. If this or his abdominal pain worsens, then rec'd ER for evaluation if needed. Otherwise, I will pass this along to Dr. Cardenas for any additional recommendations. For now, will plan for blood work in a month. Thanks. Pt called in and stated he was bleeding out of his navel area. Would like to know when he can get his surgery done. He is using cotton squares, and replacing them every 3 hours. Does not want to go to ED since he stated they will probably just give him a bandage and send him on his way. -Taking 10 mg oxy taking (from pain management). -stated does not have any other symptoms other than abdominal pain Talked with patient and waiting for cardiac clearance. Patient verbalized understanding Pt called today and is asking when is he going to get scheduled for surgery. documented in this encounter [facility] 05-08-2024 Telephone encounter Note Order placed for further blood work - checking protein levels. Please have him complete. Can either come to [facility] or order can be sent to him to complete closer to home. [facility] 05-05-2024 Telephone encounter Note Received fax from [facility] requesting most recent colonoscopy and pathology results. Report from 2014 (Dr. Falk performing) faxed to . Confirmation received. Radha Aceves RN May 05, 2024 3:42 PM [facility] 05-05-2024 Miscellaneous Notes Received fax from [facility] requesting most recent colonoscopy and pathology results. Report from 2014 (Dr. Falk performing) faxed to . Confirmation received. Radha Aceves RN May 05, 2024 3:42 PM documented in this encounter [facility] 04-24-2024 Telephone encounter Note Recent lab work reviewed - no protein/prealbumin checked. Will need this re-valuated at the end of the month to make sure protein levels have improved. I have a reminder set. Thanks. [facility] 04-24-2024 Miscellaneous Notes Recent lab work reviewed - no protein/prealbumin checked. Will need this re-valuated at the end of the month to make sure protein levels have improved. I have a reminder set. Thanks. Labs uploaded from [employer] [facility] [employer] Cole called back to confirm the fax # and stated I muffled it in my Vm. I gave the fax # and confirmed she had it. She stated she would send all the labs that she had. I called off again. Tried to get a person so pressed 1. The girl put me through to the nurses line that put me on an extensive hold. After awhile it gave me the option to leave a message. I left a msg and left all the information. Rec'd a call from [facility] asking if I had rec'd the fax. I confirmed I had NOT received the fax. I gave her my email. There is still no email or fax an hour later. Will call back to office if nothing arrives after lunch. LVM on office administration instructor voicemail requesting labs Requested a call back if unable to send for some reason Have left messages and talked to one person LVM to office to fax Confirmed our fax and let them know I did not receive the labs Spoke to Kenan's office and the womanw as going to fax his bloodwork results. Called Dr Grayson's office and had to leave a VM> Unable to talk to a person. Not sure office was opened Requested they fax latest blood work and if they had any questions or were unable to to please call Called the patient to relay below message. He stated there was no reason to go to the ER because all they will do is give me 2 aspirin and slap a bandaid on it Pt states he got his bloodwork last week and Dr Grayson stated his protein levels are much better Pt thought it had been more than 3 mths, confirmed with pt date of last recommendation was the end of Jan . Will call Dr Grayson to get latest bloodwork faxed Images from the original note were not included. Per previous TE - rec'd 3 months of protein shakes to increase protein levels, which will improve postop healing. He will be due for repeat blood work in about 1 month for re-evaluation. Agree with basic wound care for umbilicus - keep site clean with soap and water, dressed with gauze to protect clothes. If this or his abdominal pain worsens, then rec'd ER for evaluation if needed. Otherwise, I will pass this along to Dr. Cardenas for any additional recommendations. For now, will plan for blood work in a month. Thanks. Pt called in and stated he was bleeding out of his navel area. Would like to know when he can get his surgery done. He is using cotton squares, and replacing them every 3 hours. Does not want to go to ED since he stated they will probably just give him a bandage and send him on his way. -Taking 10 mg oxy taking (from pain management). -stated does not have any other symptoms other than abdominal pain Talked with patient and waiting for cardiac clearance. Patient verbalized understanding Pt called today and is asking when is he going to get scheduled for surgery. documented in this encounter [facility] [employer] 04-21-2024 Telephone encounter Note Labs uploaded from [facility] [employer] [facility] [employer] 04-21-2024 Miscellaneous Notes Labs uploaded from [employer] [facility] [employer] Yvanjoaquinhenri called back to confirm the fax # and stated I muffled it in my Vm. I gave the fax # and confirmed she had it. She stated she would send all the labs that she had. I called off again. Tried to get a person so pressed 1. The girl put me through to the nurses line that put me on an extensive hold. After awhile it gave me the option to leave a message. I left a msg and left all the information. Rec'd a call from [facility] asking if I had rec'd the fax. I confirmed I had NOT received the fax. I gave her my email. There is still no email or fax an hour later. Will call back to office if nothing arrives after lunch. LVM on office administration instructor voicemail requesting labs Requested a call back if unable to send for some reason Have left messages and talked to one person LVM to office to fax Confirmed our fax and let them know I did not receive the labs Spoke to Kenan's office and the womanw as going to fax his bloodwork results. Called Dr Grayson's office and had to leave a VM> Unable to talk to a person. Not sure office was opened Requested they fax latest blood work and if they had any questions or were unable to to please call Called the patient to relay below message. He stated there was no reason to go to the ER because all they will do is give me 2 aspirin and slap a bandaid on it Pt states he got his bloodwork last week and Dr Grayson stated his protein levels are much better Pt thought it had been more than 3 mths, confirmed with pt date of last recommendation was the end of Jan . Will call Dr Grayson to get latest bloodwork faxed Images from the original note were not included. Per previous TE - rec'd 3 months of protein shakes to increase protein levels, which will improve postop healing. He will be due for repeat blood work in about 1 month for re-evaluation. Agree with basic wound care for umbilicus - keep site clean with soap and water, dressed with gauze to protect clothes. If this or his abdominal pain worsens, then rec'd ER for evaluation if needed. Otherwise, I will pass this along to Dr. Cardenas for any additional recommendations. For now, will plan for blood work in a month. Thanks. Pt called in and stated he was bleeding out of his navel area. Would like to know when he can get his surgery done. He is using cotton squares, and replacing them every 3 hours. Does not want to go to ED since he stated they will probably just give him a bandage and send him on his way. -Taking 10 mg oxy taking (from pain management). -stated does not have any other symptoms other than abdominal pain Talked with patient and waiting for cardiac clearance. Patient verbalized understanding Pt called today and is asking when is he going to get scheduled for surgery. documented in this encounter [facility] 04-20-2024 Telephone encounter Note Cole called back to confirm the fax # and stated I muffled it in my Vm. I gave the fax # and confirmed she had it. She stated she would send all the labs that she had. [facility] 04-20-2024 Miscellaneous Notes Cole called back to confirm the fax # and stated I muffled it in my Vm. I gave the fax # and confirmed she had it. She stated she would send all the labs that she had. I called off again. Tried to get a person so pressed 1. The girl put me through to the nurses line that put me on an extensive hold. After awhile it gave me the option to leave a message. I left a msg and left all the information. Rec'd a call from [facility] asking if I had rec'd the fax. I confirmed I had NOT received the fax. I gave her my email. There is still no email or fax an hour later. Will call back to office if nothing arrives after lunch. LVM on office administration instructor voicemail requesting labs Requested a call back if unable to send for some reason Have left messages and talked to one person LVM to office to fax Confirmed our fax and let them know I did not receive the labs Spoke to Kenan's office and the womanw as going to fax his bloodwork results. Called Dr Grayson's office and had to leave a VM> Unable to talk to a person. Not sure office was opened Requested they fax latest blood work and if they had any questions or were unable to to please call Called the patient to relay below message. He stated there was no reason to go to the ER because all they will do is give me 2 aspirin and slap a bandaid on it Pt states he got his bloodwork last week and Dr Grayson stated his protein levels are much better Pt thought it had been more than 3 mths, confirmed with pt date of last recommendation was the end of Jan . Will call Dr Grayson to get latest bloodwork faxed Images from the original note were not included. Per previous TE - rec'd 3 months of protein shakes to increase protein levels, which will improve postop healing. He will be due for repeat blood work in about 1 month for re-evaluation. Agree with basic wound care for umbilicus - keep site clean with soap and water, dressed with gauze to protect clothes. If this or his abdominal pain worsens, then rec'd ER for evaluation if needed. Otherwise, I will pass this along to Dr. Cardenas for any additional recommendations. For now, will plan for blood work in a month. Thanks. Pt called in and stated he was bleeding out of his navel area. Would like to know when he can get his surgery done. He is using cotton squares, and replacing them every 3 hours. Does not want to go to ED since he stated they will probably just give him a bandage and send him on his way. -Taking 10 mg oxy taking (from pain management). -stated does not have any other symptoms other than abdominal pain Talked with patient and waiting for cardiac clearance. Patient verbalized understanding Pt called today and is asking when is he going to get scheduled for surgery. documented in this encounter [facility] 04-20-2024 Telephone encounter Note I called off again. Tried to get a person so pressed 1. The girl put me through to the nurses line that put me on an extensive hold. After awhile it gave me the option to leave a message. I left a msg and left all the information. [facility] 04-19-2024 Telephone encounter Note Rec'd a call from [facility] asking if I had rec'd the fax. I confirmed I had NOT received the fax. I gave her my email. There is still no email or fax an hour later. Will call back to office if nothing arrives after lunch. [facility] 04-19-2024 Miscellaneous Notes Rec'd a call from [facility] asking if I had rec'd the fax. I confirmed I had NOT received the fax. I gave her my email. There is still no email or fax an hour later. Will call back to office if nothing arrives after lunch. LVM on office administration instructor voicemail requesting labs Requested a call back if unable to send for some reason Have left messages and talked to one person LVM to office to fax Confirmed our fax and let them know I did not receive the labs Spoke to Kenan's office and the womanw as going to fax his bloodwork results. Called Dr Grayosn's office and had to leave a VM> Unable to talk to a person. Not sure office was opened Requested they fax latest blood work and if they had any questions or were unable to to please call Called the patient to relay below message. He stated there was no reason to go to the ER because all they will do is give me 2 aspirin and slap a bandaid on it Pt states he got his bloodwork last week and Dr Grayson stated his protein levels are much better Pt thought it had been more than 3 mths, confirmed with pt date of last recommendation was the end of Jan . Will call Dr Grayson to get latest bloodwork faxed Images from the original note were not included. Per previous TE - rec'd 3 months of protein shakes to increase protein levels, which will improve postop healing. He will be due for repeat blood work in about 1 month for re-evaluation. Agree with basic wound care for umbilicus - keep site clean with soap and water, dressed with gauze to protect clothes. If this or his abdominal pain worsens, then rec'd ER for evaluation if needed. Otherwise, I will pass this along to Dr. Cardenas for any additional recommendations. For now, will plan for blood work in a month. Thanks. Pt called in and stated he was bleeding out of his navel area. Would like to know when he can get his surgery done. He is using cotton squares, and replacing them every 3 hours. Does not want to go to ED since he stated they will probably just give him a bandage and send him on his way. -Taking 10 mg oxy taking (from pain management). -stated does not have any other symptoms other than abdominal pain Talked with patient and waiting for cardiac clearance. Patient verbalized understanding Pt called today and is asking when is he going to get scheduled for surgery. 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 Called Dr Grayson's office and had to leave a VM> Unable to talk to a person. Not sure office was opened Requested they fax latest blood work and if they had any questions or were unable to to please call Called the patient to relay below message. He stated there was no reason to go to the ER because all they will do is give me 2 aspirin and slap a bandaid on it Pt states he got his bloodwork last week and Dr Grayson stated his protein levels are much better Pt thought it had been more than 3 mths, confirmed with pt date of last recommendation was the end of Jan . Will call Dr Grayson to get latest bloodwork faxed Images from the original note were not included. Per previous TE - rec'd 3 months of protein shakes to increase protein levels, which will improve postop healing. He will be due for repeat blood work in about 1 month for re-evaluation. Agree with basic wound care for umbilicus - keep site clean with soap and water, dressed with gauze to protect clothes. If this or his abdominal pain worsens, then rec'd ER for evaluation if needed. Otherwise, I will pass this along to Dr. Cardenas for any additional recommendations. For now, will plan for blood work in a month. Thanks. Pt called in and stated he was bleeding out of his navel area. Would like to know when he can get his surgery done. He is using cotton squares, and replacing them every 3 hours. Does not want to go to ED since he stated they will probably just give him a bandage and send him on his way. -Taking 10 mg oxy taking (from pain management). -stated does not have any other symptoms other than abdominal pain Talked with patient and waiting for cardiac clearance. Patient verbalized understanding Pt called today and is asking when is he going to get scheduled for surgery. documented in this encounter [facility] 04-17-2024 Telephone encounter Note LVM to office to fax Confirmed our fax and let them know I did not receive the labs [facility] 04-17-2024 Miscellaneous Notes LVM to office to fax Confirmed our fax and let them know I did not receive the labs Spoke to Kenan's office and the womanw as going to fax his bloodwork results. Called Dr Grayson's office and had to leave a VM> Unable to talk to a person. Not sure office was opened Requested they fax latest blood work and if they had any questions or were unable to to please call Called the patient to relay below message. He stated there was no reason to go to the ER because all they will do is give me 2 aspirin and slap a bandaid on it Pt states he got his bloodwork last week and Dr Grayson stated his protein levels are much better Pt thought it had been more than 3 mths, confirmed with pt date of last recommendation was the end of Jan . Will call Dr Grayson to get latest bloodwork faxed Images from the original note were not included. Per previous TE - rec'd 3 months of protein shakes to increase protein levels, which will improve postop healing. He will be due for repeat blood work in about 1 month for re-evaluation. Agree with basic wound care for umbilicus - keep site clean with soap and water, dressed with gauze to protect clothes. If this or his abdominal pain worsens, then rec'd ER for evaluation if needed. Otherwise, I will pass this along to Dr. Cardenas for any additional recommendations. For now, will plan for blood work in a month. Thanks. Pt called in and stated he was bleeding out of his navel area. Would like to know when he can get his surgery done. He is using cotton squares, and replacing them every 3 hours. Does not want to go to ED since he stated they will probably just give him a bandage and send him on his way. -Taking 10 mg oxy taking (from pain management). -stated does not have any other symptoms other than abdominal pain Talked with patient and waiting for cardiac clearance. Patient verbalized understanding Pt called today and is asking when is he going to get scheduled for surgery. documented in this encounter [facility] 04-13-2024 Telephone encounter Note Spoke to Kenan's office and the womanw as going to fax his bloodwork results. [facility] 04-13-2024 Miscellaneous Notes Spoke to Kenan's office and the womanw as going to fax his bloodwork results. Called Dr Grayson's office and had to leave a VM> Unable to talk to a person. Not sure office was opened Requested they fax latest blood work and if they had any questions or were unable to to please call Called the patient to relay below message. He stated there was no reason to go to the ER because all they will do is give me 2 aspirin and slap a bandaid on it Pt states he got his bloodwork last week and Dr Grayson stated his protein levels are much better Pt thought it had been more than 3 mths, confirmed with pt date of last recommendation was the end of Jan . Will call Dr Grayson to get latest bloodwork faxed Images from the original note were not included. Per previous TE - rec'd 3 months of protein shakes to increase protein levels, which will improve postop healing. He will be due for repeat blood work in about 1 month for re-evaluation. Agree with basic wound care for umbilicus - keep site clean with soap and water, dressed with gauze to protect clothes. If this or his abdominal pain worsens, then rec'd ER for evaluation if needed. Otherwise, I will pass this along to Dr. Cardenas for any additional recommendations. For now, will plan for blood work in a month. Thanks. Pt called in and stated he was bleeding out of his navel area. Would like to know when he can get his surgery done. He is using cotton squares, and replacing them every 3 hours. Does not want to go to ED since he stated they will probably just give him a bandage and send him on his way. -Taking 10 mg oxy taking (from pain management). -stated does not have any other symptoms other than abdominal pain Talked with patient and waiting for cardiac clearance. Patient verbalized understanding Pt called today and is asking when is he going to get scheduled for surgery. documented in this encounter [facility] 04-11-2024 Telephone encounter Note Called Dr Grayson's office and had to leave a VM> Unable to talk to a person. Not sure office was opened Requested they fax latest blood work and if they had any questions or were unable to to please call [facility] 04-11-[address] Grayson's office and had to leave a VM> Unable to talk to a person. Not sure office was opened Requested they fax latest blood work and if they had any questions or were unable to to please call Called the patient to relay below message. He stated there was no reason to go to the ER because all they will do is give me 2 aspirin and slap a bandaid on it Pt states he got his bloodwork last week and Dr Grayson stated his protein levels are much better Pt thought it had been more than 3 mths, confirmed with pt date of last recommendation was the end of Jan . Will call Dr Grayson to get latest bloodwork faxed Images from the original note were not included. Per previous TE - rec'd 3 months of protein shakes to increase protein levels, which will improve postop healing. He will be due for repeat blood work in about 1 month for re-evaluation. Agree with basic wound care for umbilicus - keep site clean with soap and water, dressed with gauze to protect clothes. If this or his abdominal pain worsens, then rec'd ER for evaluation if needed. Otherwise, I will pass this along to Dr. Cardenas for any additional recommendations. For now, will plan for blood work in a month. Thanks. Pt called in and stated he was bleeding out of his navel area. Would like to know when he can get his surgery done. He is using cotton squares, and replacing them every 3 hours. Does not want to go to ED since he stated they will probably just give him a bandage and send him on his way. -Taking 10 mg oxy taking (from pain management). -stated does not have any other symptoms other than abdominal pain Talked with patient and waiting for cardiac clearance. Patient verbalized understanding Pt called today and is asking when is he going to get scheduled for surgery. documented in this encounter [facility] 04-11-2024 Telephone encounter Note Called the patient to relay below message. He stated there was no reason to go to the ER because all they will do is give me 2 aspirin and slap a bandaid on it Pt states he got his bloodwork last week and Dr Grayson stated his protein levels are much better Pt thought it had been more than 3 mths, confirmed with pt date of last recommendation was the end of Jan . Will call Dr Grayson to get latest bloodwork faxed [facility] 04-11-2024 Telephone encounter Note Images from the original note were not included. [facility] 04-11-2024 Telephone encounter Note Per previous TE - rec'd 3 months of protein shakes to increase protein levels, which will improve postop healing. He will be due for repeat blood work in about 1 month for re-evaluation. Agree with basic wound care for umbilicus - keep site clean with soap and water, dressed with gauze to protect clothes. If this or his abdominal pain worsens, then rec'd ER for evaluation if needed. Otherwise, I will pass this along to Dr. Cardenas for any additional recommendations. For now, will plan for blood work in a month. Thanks. [employer] [facility] 04-11-2024 Telephone encounter Note Pt called in and stated he was bleeding out of his navel area. Would like to know when he can get his surgery done. He is using cotton squares, and replacing them every 3 hours. Does not want to go to ED since he stated they will probably just give him a bandage and send him on his way. -Taking 10 mg oxy taking (from pain management). -stated does not have any other symptoms other than abdominal pain [facility] 03-22-2024 Telephone encounter Note Talked with patient and waiting for cardiac clearance. Patient verbalized understanding [facility] 03-22-2024 Telephone encounter Note Pt called today and is asking when is he going to get scheduled for surgery. [facility] 02-04-2024 History of Presen t illness Narrative Images from the original note were not included. [facility] Advanced Laparoscopic Surgery Patient Name: Jacky Ellis Date: 02/04/24 HPI: Jacky Ellis is a 73 y.o. male who presents with large recurrent ventral hernia. He states that he underwent umbilical hernia repair with mesh with Dr. Stern in August 2022. At that time he was told that they had to remove part of his small intestine as well. Was doing fine until about 2 months ago when he suddenly experienced a rip throughout his abdominal wall as well as a bulge that is progressively increased in size and pain. Presented to the ER for intractable pain and referred back to Dr. Stern however was told that the hernia was too complex for Dr. Stern to repair so was referred to us for evaluation. States that the hernia is very painful and he has doubled up on his chronic pain medication that he normally takes for chronic back pain related to scoliosis. He normally takes 7.5 mg of [place] every 6-8 hours, but is currently taking this every 5 hours for pain control. Follows with Dr. Sargent. PMH also significant for DM, h/o CAD s/p CABG in 2020, afib s/p ablation - on Xarelto, follows with Dr. Modi. 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 Former smoker. Notes reviewed: - Dr. Lozano, 12/21/23 Data reviewed: - CT abd/pel @ [place], 12/21/23: personally interpreted, large ventral hernia containing bowel, cirrhosis, persistent but decreased adenopathy at virgilio hepatis PMHx: Past Medical History: Diagnosis Date Arthritis Back pain lower Heart attack (HCC) Hypertension Lobar pneumonia, unspecified organism (HCC) 12/04/2020 Scoliosis Stroke (HCC) patient denies h/o CVA PSHx: Past Surgical History: Procedure Laterality Date ABLATION FOR ATRIAL FIBRILLATION (HISTORICAL) CARDIAC SURGERY 2020 COLONOSCOPY DENTAL SURGERY HERNIA REPAIR Right 1958 RIH RT/LT HEART CATHETERS (HISTORICAL) TRIPLE BYPASS THREE VALUES SHOULDER SURGERY SMALL INTESTINE SURGERY 08/2022 SBR TONSILLECTOMY 1960 UMBILICAL HERNIA REPAIR 08/2022 [place] PFMHx: Family History Problem Relation Name Age of Onset Cancer Mother Cancer Father ALL: Allergies Allergen Reactions Dapagliflozin Other Penicillins Other SKIN PEELS OFF PALMS OF HANDS AND FEET, YEARS AGO hands and feet peeled and bled MEDS: Current Outpatient Medications Medication Sig Dispense Refill amiodarone (Pacerone) 200 MG tablet Take 400 mg by mouth daily. atorvastatin (Lipitor) 40 MG tablet Take 40 mg by mouth daily. bumetanide (Bumex) 1 MG tablet Take 1 mg by mouth daily. carvedilol (Coreg) 25 MG tablet Take 25 mg by mouth 2 times daily. Entresto 24-26 MG tablet Take 1 tablet by mouth 2 times daily. Farxiga 10 MG tablet Take 10 mg by mouth daily. HYDROcodone-acetaminophen ([place]) 7.5-325 MG tablet Xarelto 15 MG tablet Take 15 mg by mouth with evening meal. No current facility-administered medications for this visit. SOCIAL Hx: Social History Socioeconomic History Marital status: Spouse name: Not on file Number of children: Not on file Years of education: Not on file Highest education level: Not on file Occupational History Not on file Tobacco Use Smoking status: Former Types: Cigarettes Smokeless tobacco: Never Substance and Sexual Activity Alcohol use: Yes Alcohol/week: 2.0 standard drinks of alcohol Types: 2 Shots of liquor per week Comment: OCC TWICE A MONTH Drug use: Never Sexual activity: Yes Partners: Female Other Topics Concern Not on file Social History Narrative Not on file Social Drivers of Health Financial Resource Strain: Not on file Food Insecurity: Not on file Transportation Needs: Not on file Physical Activity: Not on file Stress: Not on file Social Connections: Not on file Intimate Partner Violence: Not on file Housing Stability: Not on file ROS: Review of Systems All other systems reviewed and are negative. DIAGNOSTIC EVALUATION: as described above Physical Examination: BP 133/84 Pulse 73 Temp 36.1 C (97 F) (Temporal) Ht 6' 2 (1.88 m) Wt 250 lb (113 kg) BMI 32.10 kg/m He stands Height: 6' 2 (188 cm) tall with a weight of Weight: 250 lb (113 kg), resulting in a BMI of Body mass index is 32.1 kg/m . Physical Exam Vitals reviewed. Exam conducted with a cigarette lighter repairer present. Constitutional: Appearance: Normal appearance. He is not ill-appearing. HENT: Head: Normocephalic and atraumatic. Cardiovascular: Rate and Rhythm: Normal rate. Pulmonary: Effort: Pulmonary effort is normal. Breath sounds: No wheezing. Abdominal: Comments: Large incarcerated ventral hernia Skin: General: Skin is warm and dry. Capillary Refill: Capillary refill takes less than 2 seconds. Neurological: Mental Status: He is alert. Mental status is at baseline. Assessment/Plan Jacky was seen today for new patient. Diagnoses and all orders for this visit: Incisional hernia, without obstruction or gangrene (Primary) - CBC; Future - Comprehensive metabolic panel; Future - TSH; Future - Prealbumin; Future - Hemoglobin A1c; Future - CBC - Comprehensive metabolic panel - TSH - Prealbumin - Hemoglobin A1c Type 2 diabetes mellitus without complication, without long-term current use of insulin (CMS/HCC) (HCC) - CBC; Future - Comprehensive metabolic panel; Future - TSH; Future - Prealbumin; Future - Hemoglobin A1c; Future - CBC - Comprehensive metabolic panel - TSH - Prealbumin - Hemoglobin A1c Cirrhosis of liver without ascites, unspecified hepatic cirrhosis type (HCC) Current use of assisted anticoagulation Mr. Ellis is a 73yo M presenting for evaluation of large, tender incisional hernia. At this time, we recommend further evaluation with repeat blood work to evaluate DM as well as new finding of cirrhotic appearing liver on CT. Pending blood work, may proceed with surgery scheduling. Will need cardiac clearance and plan for postop pain control with pain management. I met with the patient today to discuss risks and benefits of abdominal wall reconstruction with possible panniculectomy including, but not limited to, recurrence of the hernia, chronic pain, nerve injury, damage to surrounding organs/structures, risk of fistula, infection including mesh infection and need to remove the mesh, and injury to surrounding structures. We discussed potential for hemorrhage, infection, incomplete resolution of their symptoms, as well as cardiac and pulmonary-related complications. Additionally if panniculectomy is necessary, patient understands that they may lose their umbilicus and that I do not guarantee a cosmetic result. The goal of this operation is to restore physiologic continuity of their abdominal wall, not a cosmetic procedure. Patient understands that they may have multiple drains and/or a wound vac postoperatively. He was also given alternative non-operative treatment plans. The patient understands and wishes to proceed with recommendations. Plan: Initial Pre-Operative Testing Primary Procedure: Open incisional hernia repair w/ mesh, possible component separation Initial Testing: Blood work Clearance: PAT, Cardio Preop SQ Heparin: yes Location: [facility] I personally performed the evaluation and management of Jacky Ellis in the development of a treatment plan for this patient. I personally interviewed the patient and performed an individual physical examination. In addition, I discussed the patient's condition and treatment options with them. I have also reviewed and agree with the past medical, family and social history unless otherwise noted. All of the patient's questions were answered. I discussed/counseled the patient regarding the risks and benefits of surgery as well as the preoperative and postoperative care plan for this patient.The patient was seen and examined independently and relevant data reviewed by myself. A full chart review was performed. Patient Care Team: Hoda Grayson as PCP - General (Family Medicine) Sam Modi MD as Service Engine Repairer (Cardiology) Natalia Sargent MD (Pain Medicine) se documented in this encounter [facility] 02-04-2024 History of Presen t illness Narrative Images from the original note were not included. [facility] Advanced Laparoscopic Surgery Patient Name: Jacky Ellis Date: 02/04/24 HPI: Jacky Ellis is a 73 y.o. male who presents with large recurrent ventral hernia. He states that he underwent umbilical hernia repair with mesh with Dr. Stern in August 2022. At that time he was told that they had to remove part of his small intestine as well. Was doing fine until about 2 months ago when he suddenly experienced a rip throughout his abdominal wall as well as a bulge that is progressively increased in size and pain. Presented to the ER for intractable pain and referred back to Dr. Stern however was told that the hernia was too complex for Dr. Stern to repair so was referred to us for evaluation. States that the hernia is very painful and he has doubled up on his chronic pain medication that he normally takes for chronic back pain related to scoliosis. He normally takes 7.5 mg of [place] every 6-8 hours, but is currently taking this every 5 hours for pain control. Follows with Dr. Sargent. PMH also significant for DM, h/o CAD s/p CABG in 2020, afib s/p ablation - on Xarelto, follows with Dr. Modi. 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 Former smoker. Notes reviewed: - Dr. 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 PMHx: Past Medical History: Diagnosis Date Arthritis Back pain lower Heart attack (HCC) Hypertension Lobar pneumonia, unspecified organism (HCC) 12/04/2020 Scoliosis Stroke (HCC) patient denies h/o CVA PSHx: Past Surgical History: Procedure Laterality Date ABLATION FOR ATRIAL FIBRILLATION (HISTORICAL) CARDIAC SURGERY 2020 COLONOSCOPY DENTAL SURGERY HERNIA REPAIR Right 1958 RIH RT/LT HEART CATHETERS (HISTORICAL) TRIPLE BYPASS THREE VALUES SHOULDER SURGERY SMALL INTESTINE SURGERY 08/2022 SBR TONSILLECTOMY 1960 UMBILICAL HERNIA REPAIR 08/2022 [place] PFMHx: Family History Problem Relation Name Age of Onset Cancer Mother Cancer Father ALL: Allergies Allergen Reactions Dapagliflozin Other Penicillins Other SKIN PEELS OFF PALMS OF HANDS AND FEET, YEARS AGO hands and feet peeled and bled MEDS: Current Outpatient Medications Medication Sig Dispense Refill amiodarone (Pacerone) 200 MG tablet Take 400 mg by mouth daily. atorvastatin (Lipitor) 40 MG tablet Take 40 mg by mouth daily. bumetanide (Bumex) 1 MG tablet Take 1 mg by mouth daily. carvedilol (Coreg) 25 MG tablet Take 25 mg by mouth 2 times daily. Entresto 24-26 MG tablet Take 1 tablet by mouth 2 times daily. Farxiga 10 MG tablet Take 10 mg by mouth daily. HYDROcodone-acetaminophen ([place]) 7.5-325 MG tablet Xarelto 15 MG tablet Take 15 mg by mouth with evening meal. No current facility-administered medications for this visit. SOCIAL Hx: Social History Socioeconomic History Marital status: Spouse name: Not on file Number of children: Not on file Years of education: Not on file Highest education level: Not on file Occupational History Not on file Tobacco Use Smoking status: Former Types: Cigarettes Smokeless tobacco: Never Substance and Sexual Activity Alcohol use: Yes Alcohol/week: 2.0 standard drinks of alcohol Types: 2 Shots of liquor per week Comment: OCC TWICE A MONTH Drug use: Never Sexual activity: Yes Partners: Female Other Topics Concern Not on file Social History Narrative Not on file Social Drivers of Health Financial Resource Strain: Not on file Food Insecurity: Not on file Transportation Needs: Not on file Physical Activity: Not on file Stress: Not on file Social Connections: Not on file Intimate Partner Violence: Not on file Housing Stability: Not on file ROS: Review of Systems All other systems reviewed and are negative. DIAGNOSTIC EVALUATION: as described above Physical Examination: BP 133/84 Pulse 73 Temp 36.1 C (97 F) (Temporal) Ht 6' 2 (1.88 m) Wt 250 lb (113 kg) BMI 32.10 kg/m He stands Height: 6' 2 (188 cm) tall with a weight of Weight: 250 lb (113 kg), resulting in a BMI of Body mass index is 32.1 kg/m . Physical Exam Vitals reviewed. Exam conducted with a cigarette lighter repairer present. Constitutional: Appearance: Normal appearance. He is not ill-appearing. HENT: Head: Normocephalic and atraumatic. Cardiovascular: Rate and Rhythm: Normal rate. Pulmonary: Effort: Pulmonary effort is normal. Breath sounds: No wheezing. Abdominal: Comments: Large incarcerated ventral hernia Skin: General: Skin is warm and dry. Capillary Refill: Capillary refill takes less than 2 seconds. Neurological: Mental Status: He is alert. Mental status is at baseline. Assessment/Plan Jacky was seen today for new patient. Diagnoses and all orders for this visit: Incisional hernia, without obstruction or gangrene (Primary) - CBC; Future - Comprehensive metabolic panel; Future - TSH; Future - Prealbumin; Future - Hemoglobin A1c; Future - CBC - Comprehensive metabolic panel - TSH - Prealbumin - Hemoglobin A1c Type 2 diabetes mellitus without complication, without long-term current use of insulin (CMS/HCC) (HCC) - CBC; Future - Comprehensive metabolic panel; Future - TSH; Future - Prealbumin; Future - Hemoglobin A1c; Future - CBC - Comprehensive metabolic panel - TSH - Prealbumin - Hemoglobin A1c Cirrhosis of liver without ascites, unspecified hepatic cirrhosis type (HCC) Current use of assisted anticoagulation Mr. Ellis is a 73yo M presenting for evaluation of large, tender incisional hernia. At this time, we recommend further evaluation with repeat blood work to evaluate DM as well as new finding of cirrhotic appearing liver on CT. Pending blood work, may proceed with surgery scheduling. Will need cardiac clearance and plan for postop pain control with pain management. I met with the patient today to discuss risks and benefits of abdominal wall reconstruction with possible panniculectomy including, but not limited to, recurrence of the hernia, chronic pain, nerve injury, damage to surrounding organs/structures, risk of fistula, infection including mesh infection and need to remove the mesh, and injury to surrounding structures. We discussed potential for hemorrhage, infection, incomplete resolution of their symptoms, as well as cardiac and pulmonary-related complications. Additionally if panniculectomy is necessary, patient understands that they may lose their umbilicus and that I do not guarantee a cosmetic result. The goal of this operation is to restore physiologic continuity of their abdominal wall, not a cosmetic procedure. Patient understands that they may have multiple drains and/or a wound vac postoperatively. He was also given alternative non-operative treatment plans. The patient understands and wishes to proceed with recommendations. Plan: Initial Pre-Operative Testing Primary Procedure: Open incisional hernia repair w/ mesh, possible component separation Initial Testing: Blood work Clearance: PAT, Cardio Preop SQ Heparin: yes Location: [facility] I personally performed the evaluation and management of Jacky Ellis in the development of a treatment plan for this patient. I personally interviewed the patient and performed an individual physical examination. In addition, I discussed the patient's condition and treatment options with them. I have also reviewed and agree with the past medical, family and social history unless otherwise noted. All of the patient's questions were answered. I discussed/counseled the patient regarding the risks and benefits of surgery as well as the preoperative and postoperative care plan for this patient.The patient was seen and examined independently and relevant data reviewed by myself. A full chart review was performed. Patient Care Team: Hoda Grayson as PCP - General (Family Medicine) Sam Modi MD as Service Engine Repairer (Cardiology) Natalia Sargent MD (Pain Medicine) se CARDIOLOGY CLEARANCE SENT documented in this encounter [facility] 12-21-2023 Hospital Discharg e instructions Patient Education 12/21/2023 17:44:17 Hernia (Adult) Hernia (Adult) A hernia can happen when there is a weakness or defect in the wall of the abdomen or groin. Intestines or nearby tissues may move from their usual location and push through the weakness in the wall. This can cause a hernia (bulge) you may see or feel. Causes and risk factors A hernia may be present at . Or it may be caused by the wear and tear of daily living. Certain factors can make a hernia more likely. These can include: Heavy lifting Straining, whether from lifting, movement, or constipation Chronic cough Injury to the abdominal wall Excess weight Prior surgery Older age Family history of hernia Symptoms Symptoms of a hernia may come on suddenly. Or they may appear slowly over time. Some common symptoms include: Bulge in the groin area, around the navel, or in the scrotum (the bulge may get bigger when you stand and go away when you lie down) Pain or pressure around the bulge Pain during activities such as lifting, coughing, or sneezing A feeling of weakness or pressure in the groin Pain or swelling in the scrotum Types of hernias There are different types of hernia. The type you have depends on its location: Inguinal. This type is in the groin or scrotum. It is more common in men. But, women can get this hernia, too. Femoral. This type is in the groin, upper thigh (where the leg bends), or labia. It is more common in women. Ventral. This type is in the abdominal wall. Umbilical. This type occurs around the navel (belly button). Incisional. This type occurs at the site of a previous surgery. The condition of the hernia can help determine how urgently it needs to be treated. Reducible. It goes back in by itself, or it can be pushed back in. Irreducible. It can t be pushed back in. Incarcerated/strangulated. The intestine is trapped (incarcerated). If this happens, you won t be able to push the bulge back in. If the incarcerated hernia isn t treated, it may become strangulated. This means the area loses blood supply and the tissue may . This requires emergency surgery. You need treatment right away. In most cases, a hernia will not heal on its own.You may need surgery to repair the defect in the abdominal wall or groin. You ll be told more about surgery, if needed. If your symptoms are not severe, treatment may sometimes be delayed. In such cases, you will need regular follow-up visits with the provider. You ll be asked to keep track of your symptoms and to watch for signs of more serious problems. You may also be given guidelines similar to the home care instructions below. Home care To help keep a hernia from getting worse, you may be advised to: Avoid heavy lifting and straining as directed. Take steps to prevent constipation, such as eating more fiber and drinking more water. This may help reduce straining that can occur when having a bowel movement. Reducing straining may help keep your symptoms from getting worse. Maintain a healthy weight or lose excess weight. This can help reduce strain on abdominal muscles and tissues. Stop smoking. This can help prevent coughing that may also strain abdominal muscles and tissues. Follow-up care Follow up with your healthcare provider, or as directed. If imaging tests were done, they will be reviewed a doctor. You will be told the results and any new findings that may affect your care. When to seek medical advice Call your healthcare provider right away if any of these occur: Hernia hardens, swells, or grows larger Hernia can no longer be pushed back in Pain moves to the lower right abdomen (just below the waistline), or spreads to the back Call 911 Call 911 if any of these occur: Severe pain, redness, or tenderness in the area near the hernia Pain worsens quickly and doesn t get better Inability to have a bowel movement or pass gas Fever of 100.4 F (38 C) or higher, or as directed by your healthcare provider [id number] [employer]. [address] [place] [id number]. All rights reserved. This information is not intended as a substitute for professional medical care. Always follow your healthcare professional's instructions. Follow Up Care 12/21/2023 15:08:06 With:REYNALDO STERN DO, Surgery Address: [address] [place] [phone] When:2-4 days [facility] 12-21-2023 Note Discharge Instructions Thank you for allowing [facility] to assist you with your healthcare needs. The following is important discharge information regarding your hospital visit. Diagnosis from Today's Visit Abdominal hernia Abdominal pain What to Do Next Instructions from Your Care Team No qualifying data available. Post Acute Orders No qualifying data available. You Need to Schedule the Following Appointments Follow Up with REYNALDO STERN DO, Surgery When:Within 2-4 days Where:[address] [place] [phone] Allergies penicillin Skin breakdown Medications Please ask your primary doctor or pharmacist before taking any other medication not listed, including over the counter drugs, herbal medications, vitamins and or supplements as they may interact with your home medications. What How Much When Why Instructions Last Dose Unchanged acetaminophen-hydrocodone (acetaminophen-hydrocodone 325 mg-7.5 mg oral tablet) 1 tab(s) by mouth Every 6 hours as needed for for pain Lumbar radiculitis SCOLIOSIS/KYPHOSCOLIOSIS Duration: 30 Days Unchanged acetaminophen-hydrocodone ([place] 325- 7.5 mg oral tablet) 1 tab(s) by mouth Every 8 hours as needed for as needed for pain Lumbar radiculitis SCOLIOSIS/KYPHOSCOLIOSIS Duration: 30 Days Unchanged acetaminophen-hydrocodone ([place] 325- 7.5 mg oral tablet) 1 tab(s) by mouth Every 8 hours as needed for for pain Lumbar radiculitis Spinal stenosis Duration: 30 Days Unchanged acetaminophen-hydrocodone ([place] 325- 7.5 mg oral tablet) 1 tab(s) by mouth Every 4 hours as needed for for pain Lumbar radiculitis SCOLIOSIS/KYPHOSCOLIOSIS Duration: 30 Days Unchanged ascorbic acid (Vitamin C 500 mg oral tablet) 1 tab(s) by mouth Once a day Unchanged atorvastatin (atorvastatin 40 mg oral tablet) 1 tab(s) by mouth Once a day Unchanged cholecalciferol (Vitamin D3 25 mcg (1000 intl units) oral capsule) 1 cap by mouth Every day Unchanged dapagliflozin (Farxiga 10 mg oral tablet) 1 tab(s) by mouth Once a day Unchanged metoprolol (metoprolol succinate 25 mg oral TABLET extended release) 1 tab(s) by mouth Once a day Unchanged potassium chloride (Potassium Chloride (Eqv-K-Tab) 10 mEq oral tablet, extended release) 1 tab(s) by mouth Once a day Unchanged rivaroxaban (Xarelto 20 mg oral tablet) 1 tab(s) by mouth Once a day (in the evening) Unchanged sacubitril-valsartan (Entresto 24 mg-26 mg oral tablet) 1 tab(s) by mouth Two (2) times a day Unchanged tiZANidine (tiZANidine 4 mg oral capsule) 1 cap by mouth Three (3) times a day as needed for Pain Please take this list to your next doctor s visit. Bring all medications you take, including over the counter medications, herbals and other supplements with you to your doctor s visit. Patients and families are reminded to discard old lists and to update any records with all medication providers or retail pharmacies. Education Materials Hernia (Adult) A hernia can happen when there is a weakness or defect in the wall of the abdomen or groin. Intestines or nearby tissues may move from their usual location and push through the weakness in the wall. This can cause a hernia (bulge) you may see or feel. Causes and risk factors A hernia may be present at . Or it may be caused by the wear and tear of daily living. Certain factors can make a hernia more likely. These can include: Heavy lifting Straining, whether from lifting, movement, or constipation Chronic cough Injury to the abdominal wall Excess weight Prior surgery Older age Family history of hernia Symptoms Symptoms of a hernia may come on suddenly. Or they may appear slowly over time. Some common symptoms include: Bulge in the groin area, around the navel, or in the scrotum (the bulge may get bigger when you stand and go away when you lie down) Pain or pressure around the bulge Pain during activities such as lifting, coughing, or sneezing A feeling of weakness or pressure in the groin Pain or swelling in the scrotum Types of hernias There are different types of hernia. The type you have depends on its location: Inguinal. This type is in the groin or scrotum. It is more common in men. But, women can get this hernia, too. Femoral. This type is in the groin, upper thigh (where the leg bends), or labia. It is more common in women. Ventral. This type is in the abdominal wall. Umbilical. This type occurs around the navel (belly button). Incisional. This type occurs at the site of a previous surgery. The condition of the hernia can help determine how urgently it needs to be treated. Reducible. It goes back in by itself, or it can be pushed back in. Irreducible. It can t be pushed back in. Incarcerated/strangulated. The intestine is trapped (incarcerated). If this happens, you won t be able to push the bulge back in. If the incarcerated hernia isn t treated, it may become strangulated. This means the area loses blood supply and the tissue may . This requires emergency surgery. You need treatment right away. In most cases, a hernia will not heal on its own.You may need surgery to repair the defect in the abdominal wall or groin. You ll be told more about surgery, if needed. If your symptoms are not severe, treatment may sometimes be delayed. In such cases, you will need regular follow-up visits with the provider. You ll be asked to keep track of your symptoms and to watch for signs of more serious problems. You may also be given guidelines similar to the home care instructions below. Home care To help keep a hernia from getting worse, you may be advised to: Avoid heavy lifting and straining as directed. Take steps to prevent constipation, such as eating more fiber and drinking more water. This may help reduce straining that can occur when having a bowel movement. Reducing straining may help keep your symptoms from getting worse. Maintain a healthy weight or lose excess weight. This can help reduce strain on abdominal muscles and tissues. Stop smoking. This can help prevent coughing that may also strain abdominal muscles and tissues. Follow-up care Follow up with your healthcare provider, or as directed. If imaging tests were done, they will be reviewed a doctor. You will be told the results and any new findings that may affect your care. When to seek medical advice Call your healthcare provider right away if any of these occur: Hernia hardens, swells, or grows larger Hernia can no longer be pushed back in Pain moves to the lower right abdomen (just below the waistline), or spreads to the back Call 911 Call 911 if any of these occur: Severe pain, redness, or tenderness in the area near the hernia Pain worsens quickly and doesn t get better Inability to have a bowel movement or pass gas Fever of 100.4 F (38 C) or higher, or as directed by your healthcare provider [id number] [employer]. [address] [place] [address]. All rights reserved. This information is not intended as a substitute for professional medical care. Always follow your healthcare professional's instructions. Additional Information VACCINATE! IT SAVES LIVES! Members of the community who have not yet received the COVID-19 vaccine and would like to receive it can visit one of [facility] vaccine clinics. There are many vaccine clinic locations within the [facility]. For locations and available times, please visit [email or web address] [email or web address] It is important to note that some COVID mobile vaccine clinics are held outdoors and may be canceled in rainy or stormy conditions. To learn more about pediatric vaccinations (ages 5-11), we invite you to visit the [facility] webpage. [email or web address].[email or web address].org/p ages/7421-Okbiy-Ukmotjuexcy-Freq bczbck-Ubsvk-Uxjjzejns.html To learn more about the COVID-19 vaccine, we invite you to visit the CDC website for a list of frequently asked questions. https://www.cdc.gov/coronavirus/ 2019-ncov/vaccines/faq.html [facility] Patient Portal Access Instructions: Stay connected with your healthcare team and access your personal medical information anytime with the [facility] Patient Portal. If you would like a full copy of your medical records please contact the [facility] Medical Records Department Wednesday through Wednesday between 8a.m. and 4:30p.m. Please follow the directions below to access the portal: 1.Access the email account you provided upon registration to the [facility].2.Look for an invitation email from [facility].3.Open the email and access the invitation link: Accept [facility]itation to [facility].Fill in the required crockett to create your account. Sign into [email or web address] with your username and password that you created in the above steps to stay up to date. You can then view a summary of results, a summary of your visits, and the ability to download your summaries to your computer or send the information securely to a physician. Remember that your healthcare information is confidential, so carefully consider who you will allow to register on the [facility] Patient Portal for access to your information. You can also access the [facility] Patient Portal on the [employer] karie. Simply click on Health Records under Health Data and then click on the [employer] logo. HOW TO SAFELY DISPOSE OF PRESCRIPTION MEDICATIONS Please use one of the following methods to safely dispose of your unused medications. 1.Use a drug disposal kit: the drug disposal pouch allows you to safely discard your old and unused drugs. Ask your nurse to give you one when you are discharged.2.Visit a local take-back location: Many local pharmacies and police departments have programs that collect old and unwanted prescription drugs. Call your local pharmacy or go to http://bit.Meddik/9D2Lv9o to find one close to you.3.Make use of household items: Use cat litter or old coffee grounds to dispose medications if other options are not available. Mix your drugs with these household products, seal them in an airtight container and throw it into the garbage. Call [facility]: [phone] to be sure your drugs can be disposed of in this way. Some medicines may require a different approach.4.Never flush your medications down the toilet. IF YOU HAVE BEEN PRESCRIBED AN OPIOIDS FOR PAIN If you have been prescribed an opioid (such as hydrocodone, oxycodone or morphine), it is critical to understand the possible side effects and risks of opioid pain medications. Even when taken as directed, opioids can have several side effects including: Tolerance, meaning you might need to take more of a medication for the same pain relief. Nausea, vomiting and/or constipation. Sleepiness, dizziness, dry mouth, confusion, depression or itching. Physical dependence, meaning you have withdrawal symptoms when a medication is stopped ? this can develop within a few days. KNOW YOUR RESPONSIBILITIES It is important to know exactly how much and how often to take the opioid pain medications you are prescribed. Never take opioids in higher amounts or more often than prescribed. Do not combine opioids with alcohol or other drugs that cause drowsiness, such as benzodiazepines, also known as benzos, including diazepam and alprazolam, muscle relaxants or sleep aids. Never sell or share prescription opioids. This is illegal. Store opioids in a secure place and out of reach of others (including children, family, friends and visitors). The last page(s) of this document has been signed and retained as a CHART COPY Signatures Patient Education Materials Hernia (Adult) Medication Leaflets My discharge plan and instructions have been reviewed and explained to me and I,JACKY ELLIS understand my current condition and have read and understand these discharge instructions. I have received a written copy of the plan/instructions. If I have questions, I am aware that I should contact my doctor. 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: Date/Time: Relationship to Patient: Witness Name/Signature: Date/Time: [facility] 12-21-2023 Note ORIGINAL EXAMINATION: CT OF THE ABDOMEN AND PELVIS WITH CONTRAST12/21/2023 4:58 pm TECHNIQUE: CT of the abdomen and pelvis was performed with the administration of intravenous contrast. Multiplanar reformatted images are provided for review. Automated exposure control, iterative reconstruction, and/or weight based adjustment of the mA/kV was utilized to reduce the radiation dose to as low as reasonably achievable. COMPARISON: CT abdomen pelvis 08/16/2022 and 08/14/2022. HISTORY: ORDERING SYSTEM PROVIDED HISTORY: Reason for Exam: Pain. Lower abdominal pain for about 1 week. FINDINGS: The included lung bases are clear. There is no visible pleural or pericardial effusion. Mild cardiomegaly. Aortic valve and coronary artery atherosclerotic calcifications are visualized. Nodular contour of the liver. There is mild periportal edema, findings appear grossly similar to previous exam. No focal hepatic lesion identified. The gallbladder is within normal limits. The spleen, pancreas, and adrenal glands are within normal limits. Symmetric nephrograms. 3.5 cm right renal cyst. No hydronephrosis. The ureters are normal in course and caliber. The urinary bladder is under distended, limiting detailed evaluation. The stomach is within normal limits. There is a ventral abdominal wall defect measuring approximately 9.4 cm at its neck containing herniated portions of small bowel without evidence of complication. Surgical changes are seen within small bowel in the right lower quadrant. Unremarkable appearing bowel anastomosis. The large bowel demonstrate no obstruction. The appendix is normal. Colonic diverticulosis without acute diverticulitis. No free intraperitoneal fluid or gas is identified. Suprarenal fusiform abdominal aortic aneurysm measures 3.1 cm in diameter. Adenopathy at the virgilio hepatis measures proximally 1.3 cm from prior 1.6 cm. Partially visualized median sternotomy wires. Spinal stimulator device noted. Bilateral pars defects at L5 results in grade 1 anterolisthesis of L5 on S1. Varying degrees of multilevel degenerative changes are present throughout the spine. There is no acute fracture or aggressive osseous lesion. No acute soft tissue abnormality. IMPRESSION: No acute abdominopelvic process. Cirrhotic liver morphology. Large ventral abdominal wall defect contains portions of herniated small bowel without evidence of complication. Colonic diverticulosis without acute diverticulitis. Persistent but decreased adenopathy at the virgilio hepatis. Fusiform suprarenal abdominal aortic aneurysm measures up to 3.1 cm. Please see recommendations below. I have personally reviewed the images of this examination and agree with the resident's findings and interpretation. RECOMMENDATIONS: For management of fusiform AAA: 3.0-3.4 cm AAA, recommend follow-up every 3 years. Note: Recommend Vascular consultation if a fusiform AAA enlarges by >0.5 cm in 6 months or >1 cm in 1 year or for a saccular AAA of any size. References: J Am Eugenio Radiol 2013; 10(10):789-794; J Vasc Surg. 2018; 67:2-77 Interpreted by: Sam Olmstead Preliminary Report By: Ratna Noriega Electronically signed By Sam Olmstead Dictated Date: 12/21/2023 5:03:49 PM Prelim Date: 12/21/2023 5:15:35 PM Sign Date: 12/21/2023 5:52:37 PM Ordering Provider: CUCA LOZANO [facility] 10-05-2023 Discharge summary Date of Service 10/05/2023 Discharge Diagnosis Lumbar radiculitis (M54.16 - ICD-10-CM) SCOLIOSIS/KYPHOSCOLIOSIS (M41.9 - ICD-10-CM) Additional Orders: Discontinued: Activity on Discharge,May Shower, no heavy lifting x 3 days (nothing < 20 lbs), 10/05/23 7:47:00 EDT Ordered: Activity on Discharge,May Shower, no heavy lifting x 3 days (nothing > 20 lbs), 10/05/23 7:50:00 EDT Other status: Discharge,10/05/23 7:46:00 EDT, Discharged to: Home(Complete) Modified: tiZANidine,Start: 10/04/23 19:01:00 EDT, Dose = 4 mg, = 1 tab(s), Oral, TID, PRN, Muscle pain, 0, 10/04/23 19:01:00 EDT Hospital Course HPI: 73-year-old with history of persistent atrial fibrillation, amiodarone-induced hypothyroidism, thoracic aortic aneurysm s/p type a dissection with 34 mm Hemashield 11/15/2020, CAD, 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 Course: The patient underwent successful atrial fibrillation ablation. He made sinus rhythm overnight. There were some PACs. No runs of atrial tachycardia. Groins were stable. The patient was ready for discharge. Resume anticoagulation. Allergies penicillin Skin breakdown Procedures Atrial fibrillation ablation (pulse field ablation-pulmonary vein isolation; posterior wall isolation) Consults none Imaging Results and Diagnostics none Objective Vitals and Measurements T: 36.8 C (Oral) TMIN: 36.5 C (Oral) TMAX: 36.8 C (Oral) HR: 80 RR: 16 BP: 110/74 SpO2: 94% Weight Dosing Weight: 108.1 kg (10/04/23) General Appearance: Alert and oriented x3, no apparent distress Head: Normocephalic, atraumatic EENT: EOMI, PERRLA, mucous membranes moist Neck: Supple, no thyromegaly. Cardiac: rrr, no mrg. Lungs: Clear to auscultation bilaterally, no wheezing, rales, rhonchi. Abdomen: Nondistended, nontender, bowel sounds present. Musculoskeletal: No gross deformities. Extremities: no significant lower extremity edema, no calf tenderness, pedal pulses are present bilaterally Neurological: No focal deficits Skin: Warm, dry, intact Psychiatric: Mood congruent, cooperative Pending Labs and Studies none Code Status Full Code Admission Date 10/04/2023 Discharge Date 10/05/2023 Medications Unchanged acetaminophen-hydrocodone (acetaminophen-hydrocodone 325 mg-7.5 mg oral tablet)1 tab(s) by mouth every 6 hours as needed for pain for 30 Days. Refills: 0. ascorbic acid (Vitamin C 500 mg oral tablet)1 tab(s) by mouth once a day. atorvastatin (atorvastatin 40 mg oral tablet)1 tab(s) by mouth once a day. cholecalciferol (Vitamin D3 25 mcg (1000 intl units) oral capsule)1 cap by mouth every day. dapagliflozin (Farxiga 10 mg oral tablet)1 tab(s) by mouth once a day. metoprolol (metoprolol succinate 25 mg oral TABLET extended release)1 tab(s) by mouth once a day. Refills: 3. potassium chloride (Potassium Chloride (Eqv-K-Tab) 10 mEq oral tablet, extended release)1 tab(s) by mouth once a day. Refills: 3. rivaroxaban (Xarelto 20 mg oral tablet)1 tab(s) by mouth once a day (in the evening). Refills: 3. sacubitril-valsartan (Entresto 24 mg-26 mg oral tablet)1 tab(s) by mouth two (2) times a day. Refills: 3. tiZANidine (tiZANidine 4 mg oral capsule)1 cap by mouth three (3) times a day as needed Pain. Follow Up Follow Up with FABRICIO VIGIL MD When:10/22/2023 10:00 AM EDT Where:[address] [facility], [place], [facility] [address] [place] [address]- [phone] Additional Information: KEEP THIS PREVIOUSLY SCHEDULED APPOINTMENT Follow Up with SAM MODI MD When:12/30/2023 11:15 AM EDT Where:[address] [address] [phone] Follow Up Labs/Studies Discharge Labs No Follow-up Labs Discharge Studies No Follow-up Studies Discharge Diet none Discharge Activity Activity on Discharge - Discontinued -- May Shower, no heavy lifting x 3 days (nothing < 20 lbs), 10/05/23 7:47:00 EDT Discharge Activity (Activity on Discharge) - Ordered -- May Shower, no heavy lifting x 3 days (nothing > 20 lbs), 10/05/23 7:50:00 EDT Condition on Discharge stable Readmission Risk/Palliative Score No qualifying data available. Discharge Disposition home Information Provided To patient Digitally Signed by SAM MODI MD on 10/05/2023 11:23 AM [facility] 10-05-2023 Hospital Discharg e instructions Patient Education 10/05/2023 08:24:32 3-- EP Study/Ablation (01/2018) (CUSTOM) ELECTROPHYSIOLOGY STUDY/ABLATION Discharge Instructions DIET INSTRUCTIONS Resume diet as prior to procedure ACTIVITIES Do not drive FOR 24 HOURS No heavy lifting GREATER THAN 20 POUNDS or pushing or straining FOR 3 DAYS BATHING/SHOWERING May tub bathe in 4 days Do not sit in hot tub, whirlpool, or swim for 4 days May shower today WOUND CARE You may go home with a Band-Aid over your procedure site. Keep this Band-Aid on for the next 24 hours and then remove it leaving the site open to air. Some degree of bruising and tenderness is normal around the procedure site. It will take a while for any bruising to completely resolve. Keep your site clean and dry. You need to report the following to your aerial lineman: Any draining or oozing from the site Any swelling at the site Any increased pain or tenderness at the site Any numbness in your leg where the procedure was done Any sign of infection WATCH FOR SIGNS OF INFECTION: Elevated temperature above 100.5 Redness or swelling Increased pain Foul odor or drainage. If you have any questions, please call your doctor at the number listed on your follow up instructions. Follow all instructions given to you by your physician. Document Released: 03/29/2006 Document Revised: 03/15/2013 Document Reviewed: 03/30/2014 ExitCare Patient Information 2015 [employer]. This information is not intended to replace advice given to you by your health care provider. Make sure you discuss any questions you have with your health care provider. Follow Up Care 09/16/2023 10:45:39 With:FABRICIO VIGIL MD Address: [address] [facility], [place], [facility] [address] [place] [address]- [phone] When:10/22/2023 10:00:00 Comments:KEEP THIS PREVIOUSLY SCHEDULED APPOINTMENT With:SAM MODI MD Address: [address] [facility] [address] [place] [address]- [phone] When:12/30/2023 11:15:00 [facility] 10-05-2023 Summary of episod e note Discharge Instructions Thank you for allowing [facility] to assist you with your healthcare needs. The following is important discharge information regarding your hospital visit. Your Care Team HODA GRAYSON MD Your Diagnosis Lumbar radiculitis SCOLIOSIS/KYPHOSCOLIOSIS What to do next Scheduled Follow-Up Appointments Appointment Type When With Where Contact Information StatusPM OV 10/15/2023 08:00 AM NATALIA COONEY MD [facility] PM [address] [facility] [address] [place], [place] [address]- [phone] Confirmed [facility] 10/22/2023 10:00 AM EDT [facility] Confirmed PM OV 11/17/2023 09:00 AM EDT TYLER ROJAS APRN-KARLA [facility] PM [address] [place] [address]- [phone] Confirmed CV OV 12/30/2023 11:15 AM EDT [facility] Confirmed Follow Up Appointments Follow Up with FABRICIO VIGIL MD When:10/22/2023 10:00 AM EDT Where:[address] [facility] [address] [place] [address]- [phone] Additional Information: KEEP THIS PREVIOUSLY SCHEDULED APPOINTMENT Follow Up with SAM MODI MD When:12/30/2023 11:15 AM EDT Where:[address] [facility] [address] [place] [address]- [phone] The Following Activity and Diet Have Been Ordered for You Activity on Discharge - Discontinued -- May Shower, no heavy lifting x 3 days (nothing < 20 lbs), 10/05/23 7:47:00 EDT Discharge Activity (Activity on Discharge) - Ordered -- May Shower, no heavy lifting x 3 days (nothing > 20 lbs), 10/05/23 7:50:00 EDT No qualifying data available. Allergies penicillin Skin breakdown Medications Please ask your primary doctor or pharmacist before taking any other medication not listed, including over the counter drugs, herbal medications, vitamins and or supplements as they may interact with your home medications. What How Much When Why Instructions Last Dose Unchanged acetaminophen-hydrocodone (acetaminophen-hydrocodone 325 mg-7.5 mg oral tablet) 1 tab(s) by mouth Every 6 hours as needed for for pain Lumbar radiculitis SCOLIOSIS/KYPHOSCOLIOSIS Duration: 30 Days Unchanged ascorbic acid (Vitamin C 500 mg oral tablet) 1 tab(s) by mouth Once a day Unchanged atorvastatin (atorvastatin 40 mg oral tablet) 1 tab(s) by mouth Once a day Unchanged cholecalciferol (Vitamin D3 25 mcg (1000 intl units) oral capsule) 1 cap by mouth Every day Unchanged dapagliflozin (Farxiga 10 mg oral tablet) 1 tab(s) by mouth Once a day Unchanged metoprolol (metoprolol succinate 25 mg oral TABLET extended release) 1 tab(s) by mouth Once a day Unchanged potassium chloride (Potassium Chloride (Eqv-K-Tab) 10 mEq oral tablet, extended release) 1 tab(s) by mouth Once a day Unchanged rivaroxaban (Xarelto 20 mg oral tablet) 1 tab(s) by mouth Once a day (in the evening) Unchanged sacubitril-valsartan (Entresto 24 mg-26 mg oral tablet) 1 tab(s) by mouth Two (2) times a day Unchanged tiZANidine (tiZANidine 4 mg oral capsule) 1 cap by mouth Three (3) times a day as needed for Pain Please take this list to your next doctor s visit. Bring all medications you take, including over the counter medications, herbals and other supplements with you to your doctor s visit. Patients and families are reminded to discard old lists and to update any records with all medication providers or retail pharmacies. Education Materials ELECTROPHYSIOLOGY STUDY/ABLATION Discharge Instructions DIET INSTRUCTIONS Resume diet as prior to procedure ACTIVITIES Do not drive FOR 24 HOURS No heavy lifting GREATER THAN 20 POUNDS or pushing or straining FOR 3 DAYS BATHING/SHOWERING May tub bathe in 4 days Do not sit in hot tub, whirlpool, or swim for 4 days May shower today WOUND CARE You may go home with a Band-Aid over your procedure site. Keep this Band-Aid on for the next 24 hours and then remove it leaving the site open to air. Some degree of bruising and tenderness is normal around the procedure site. It will take a while for any bruising to completely resolve. Keep your site clean and dry. You need to report the following to your aerial lineman: Any draining or oozing from the site Any swelling at the site Any increased pain or tenderness at the site Any numbness in your leg where the procedure was done Any sign of infection WATCH FOR SIGNS OF INFECTION: Elevated temperature above 100.5 Redness or swelling Increased pain Foul odor or drainage. If you have any questions, please call your doctor at the number listed on your follow up instructions. Follow all instructions given to you by your physician. Document Released: 03/29/2006 Document Revised: 03/15/2013 Document Reviewed: 03/30/2014 ExitCare Patient Information 2015 [employer] [facility]. This information is not intended to replace advice given to you by your health care provider. Make sure you discuss any questions you have with your health care provider. Additional Information VACCINATE! IT SAVES LIVES! Members of the community who have not yet received the COVID-19 vaccine and would like to receive it can visit one of [facility] vaccine clinics. There are many vaccine clinic locations within the [facility]. For locations and available times, please visit https://gettheshot.coronavirus.o lao.gov/. It is important to note that some COVID mobile vaccine clinics are held outdoors and may be canceled in rainy or stormy conditions. To learn more about pediatric vaccinations (ages 5-11), we invite you to visit the [facility] webpage. https://www.[employer].org/p ages/1720-Kceso-Lxhihbnxfya-Freq sgrmno-Xxjrd-Mnfgfhjeb.html To learn more about the COVID-19 vaccine, we invite you to visit the CDC website for a list of frequently asked questions.https://www.cdc.gov/co ronavirus/2019-ncov/vaccines/faq .html [facility] Patient Portal Access Instructions: Stay connected with your healthcare team and access your personal medical information anytime with the [employer] Patient Portal. Please follow the directions below to create your [employer] account: 1.Access the email account you provided upon registration to the hospital/physician office.2.Look for an invitation email from [facility].3.Open the email and access the invitation link: Accept Invitation to OpenText.4.Fill in the required crockett to create your account. To access your account, visit [facility] [employer]. Click the blue button labeled Access Patient Portal and then log in with the username and password that you created in the steps above. You will be able to view your test results, lab results, a summary of your visits, upcoming appointments and more. There is also a convenient messaging option where you can send secure messages to your provider. In addition, you will have the ability to download any documents or summaries to your computer and/or send the information securely to a physician. Remember that your healthcare information is confidential, so carefully consider who you will allow to register on the [facility] Patient Portal for access to your information. You can also access the [facility] on the [facility] karie. Simply click on Patient Portal and then log into your account. If you would like to receive a full copy of your medical records, please contact the [facility] Medical Records Department by calling [phone], Wednesday through Wednesday between 8 a.m. and 4:30 p.m. HOW TO SAFELY DISPOSE OF PRESCRIPTION MEDICATIONS Please use one of the following methods to safely dispose of your unused medications. 1.Use a drug disposal kit: the drug disposal pouch allows you to safely discard your old and unused drugs. Ask your nurse to give you one when you are discharged.2.Visit a local take-back location: Many local pharmacies and police departments have programs that collect old and unwanted prescription drugs. Call your local pharmacy or go to http://[employer]/7N3Is7e to find one close to you.3.Make use of household items: Use cat litter or old coffee grounds to dispose medications if other options are not available. Mix your drugs with these household products, seal them in an airtight container and throw it into the garbage. Call [facility]: [phone] to be sure your drugs can be disposed of in this way. Some medicines may require a different approach.4.Never flush your medications down the toilet. IF YOU HAVE BEEN PRESCRIBED AN OPIOID FOR PAIN If you have been prescribed an opioid (such as hydrocodone, oxycodone or morphine), it is critical to understand the possible side effects and risks of opioid pain medications. Even when taken as directed, opioids can have several side effects including: Tolerance, meaning you might need to take more of a medication for the same pain relief. Nausea, vomiting and/or constipation. Sleepiness, dizziness, dry mouth, confusion, depression or itching. Physical dependence, meaning you have withdrawal symptoms when a medication is stopped, can develop within a few days. KNOW YOUR RESPONSIBILITIES It is important to know exactly how much and how often to take the opioid pain medications you are prescribed. Never take opioids in higher amounts or more often than prescribed. Do not combine opioids with alcohol or other drugs that cause drowsiness, such as benzodiazepines, also known as benzos, including diazepam and alprazolam, muscle relaxants or sleep aids. Never sell or share prescription opioids. This is illegal. Store opioids in a secure place and out of reach of others (including children, family, friends and visitors). The last page of this document has been signed and retained as a CHART COPY. Signatures Patient Education Materials 3-- EP Study/Ablation (01/2018) (CUSTOM) Medication Leaflets My discharge plan and instructions have been reviewed and explained to me and I,JACKY ELLIS understand my current condition and have read and understand these discharge instructions. I have received a written copy of the plan/instructions. If I have questions, I am aware that I should contact my doctor. 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 1. Atrial fibrillation. Persistent. R/b of ablation d/w patient who wishes to proceed. - here for ablation. INR 2.4 stable. 2. Hyperthyroid. Stable. Asymptomatic. Amio induced. 3. COmorbid disease as ablve Sam Modi MD Cardiac Electrophysiology [phone] Future Appointments Appointment Date:10/15/2023 08:00:00 AM Scheduled Provider:NATALIA SARGENT MD Location:[facility] Appointment Type:PM OV Appointment Date:10/22/2023 10:00:00 AM Scheduled Provider: Location:[facility] Appointment Type:[facility] Appointment Date:11/17/2023 09:00:00 AM Scheduled Provider:TYLER ROJAS Location:[facility] Appointment Type:PM OV Appointment Date:12/30/2023 11:15:00 AM Scheduled Provider: Location:[facility] Appointment Type:CV OV Future Scheduled Tests Laboratory* Basic Metabolic Panel 05/08/23 * Basic Metabolic Panel 10/29/23 * Thyroid Stimulating Hormone 01/16/23 * Thyroid Stimulating Hormone 09/19/22 * Complete Blood Count 05/08/23 * Complete Blood Count 05/28/23 * Complete Blood Count 01/16/23 * Complete Blood Count 09/19/22 * Complete Blood Count 10/29/23 * Lipid Profile 01/16/23 * Complete Metabolic Panel 01/16/23 * Complete Metabolic Panel 09/19/22 * N-Terminal proBNP 05/08/23 * N-Terminal proBNP 05/28/23 * N-Terminal proBNP 01/16/23 * N-Terminal proBNP 09/19/22 * N-Terminal proBNP 10/29/23 Radiology* CT Angiography Chest w/ Contrast 06/19/23 * XR Chest 2 Views (PA & Lateral) 02/05/23 * XR Chest 2 Views (PA & Lateral) 10/16/22 [facility] 06-24-2024 Anesthesiology Consult note Patient: JACKY ELLIS Age: 73 years Sex: Male : 1950 Associated Diagnoses: None Author: HODA YANG MD Assessment Postanesthesia assessment Vitals: Vital signs from flowsheet : Vital Signs 10/04/2023 11:01 EDT Respiratory Rate 16 br/min Systolic Blood Pressure Non-Invasive 126 mmHg Diastolic Blood Pressure Non-Invasive 77 mmHg 10/04/2023 10:45 EDT Heart Rate Monitored 70 bpm Respiratory Rate 18 br/min Systolic Blood Pressure Non-Invasive 128 mmHg Diastolic Blood Pressure Non-Invasive 75 mmHg 10/04/2023 10:33 EDT Heart Rate Monitored 69 bpm Respiratory Rate 18 br/min Systolic Blood Pressure Non-Invasive 118 mmHg Diastolic Blood Pressure Non-Invasive 70 mmHg 10/04/2023 10:15 EDT Heart Rate Monitored 70 bpm Respiratory Rate 18 br/min Systolic Blood Pressure Non-Invasive 103 mmHg Diastolic Blood Pressure Non-Invasive 64 mmHg 10/04/2023 10:00 EDT Heart Rate Monitored 70 bpm Respiratory Rate 18 br/min Systolic Blood Pressure Non-Invasive 119 mmHg Diastolic Blood Pressure Non-Invasive 71 mmHg 10/04/2023 9:55 EDT Temperature Skin 36.3 DegC Heart Rate Monitored 73 bpm Respiratory Rate 18 br/min Systolic Blood Pressure Non-Invasive 122 mmHg Diastolic Blood Pressure Non-Invasive 74 mmHg 10/04/2023 9:45 EDT Respiratory Rate - Anes 0 br/min br/min 10/04/2023 9:40 EDT Respiratory Rate - Anes 0 br/min br/min 10/04/2023 9:38 EDT Systolic Blood Pressure Non-Invasive 135 mmHg mmHg Diastolic Blood Pressure Non-Invasive 85 mmHg mmHg 10/04/2023 9:35 EDT Heart Rate Monitored 69 bpm bpm Respiratory Rate - Anes 0 br/min br/min 10/04/2023 9:30 EDT Heart Rate Monitored 65 bpm bpm Respiratory Rate - Anes 18 br/min br/min 10/04/2023 9:25 EDT Temperature (Route Not Specified) 36.63 DegC DegC Heart Rate Monitored 69 bpm bpm Respiratory Rate - Anes 18 br/min br/min 10/04/2023 9:20 EDT Temperature (Route Not Specified) 36.61 DegC DegC Heart Rate Monitored 85 bpm bpm Respiratory Rate - Anes 18 br/min br/min 10/04/2023 9:15 EDT Temperature (Route Not Specified) 36.58 DegC DegC Heart Rate Monitored 86 bpm bpm Respiratory Rate - Anes 18 br/min br/min 10/04/2023 9:10 EDT Temperature (Route Not Specified) 36.55 DegC DegC Heart Rate Monitored 68 bpm bpm Respiratory Rate - Anes 18 br/min br/min 10/04/2023 9:08 EDT Systolic Blood Pressure Non-Invasive 117 mmHg mmHg Diastolic Blood Pressure Non-Invasive 77 mmHg mmHg 10/04/2023 9:05 EDT Temperature (Route Not Specified) 36.53 DegC DegC Heart Rate Monitored 72 bpm bpm Respiratory Rate - Anes 16 br/min br/min 10/04/2023 9:00 EDT Temperature (Route Not Specified) 36.5 DegC DegC Heart Rate Monitored 83 bpm bpm Respiratory Rate - Anes 18 br/min br/min 10/04/2023 8:55 EDT Temperature (Route Not Specified) 36.49 DegC DegC Heart Rate Monitored 81 bpm bpm Respiratory Rate - Anes 15 br/min br/min 10/04/2023 8:50 EDT Temperature (Route Not Specified) 36.48 DegC DegC Heart Rate Monitored 92 bpm bpm Respiratory Rate - Anes 16 br/min br/min 10/04/2023 8:45 EDT Temperature (Route Not Specified) 36.47 DegC DegC Heart Rate Monitored 80 bpm bpm Respiratory Rate - Anes 16 br/min br/min 10/04/2023 8:40 EDT Temperature (Route Not Specified) 36.45 DegC DegC Heart Rate Monitored 80 bpm bpm Respiratory Rate - Anes 16 br/min br/min 10/04/2023 8:38 EDT Systolic Blood Pressure Non-Invasive 121 mmHg mmHg Diastolic Blood Pressure Non-Invasive 72 mmHg mmHg 10/04/2023 8:36 EDT Systolic Blood Pressure Non-Invasive 125 mmHg mmHg 10/04/2023 8:35 EDT Temperature (Route Not Specified) 36.47 DegC DegC Heart Rate Monitored 89 bpm bpm Respiratory Rate - Anes 16 br/min br/min 10/04/2023 8:30 EDT Temperature (Route Not Specified) 36.47 DegC DegC Heart Rate Monitored 73 bpm bpm Respiratory Rate - Anes 16 br/min br/min 10/04/2023 8:25 EDT Temperature (Route Not Specified) 36.44 DegC DegC Heart Rate Monitored 74 bpm bpm Respiratory Rate - Anes 16 br/min br/min 10/04/2023 8:20 EDT Temperature (Route Not Specified) 36.47 DegC DegC Heart Rate Monitored 79 bpm bpm Respiratory Rate - Anes 16 br/min br/min 10/04/2023 8:15 EDT Temperature (Route Not Specified) 36.52 DegC DegC Heart Rate Monitored 82 bpm bpm Respiratory Rate - Anes 16 br/min br/min 10/04/2023 8:10 EDT Temperature (Route Not Specified) 36.57 DegC DegC Heart Rate Monitored 85 bpm bpm Respiratory Rate - Anes 16 br/min br/min 10/04/2023 8:07 EDT Systolic Blood Pressure Non-Invasive 122 mmHg mmHg Diastolic Blood Pressure Non-Invasive 90 mmHg mmHg 10/04/2023 8:05 EDT Temperature (Route Not Specified) 36.1 DegC DegC Heart Rate Monitored 85 bpm bpm Respiratory Rate - Anes 14 br/min br/min 10/04/2023 8:03 EDT Systolic Blood Pressure Non-Invasive 90 mmHg mmHg Diastolic Blood Pressure Non-Invasive 67 mmHg mmHg 10/04/2023 8:01 EDT Systolic Blood Pressure Non-Invasive 95 mmHg mmHg Diastolic Blood Pressure Non-Invasive 77 mmHg mmHg 10/04/2023 8:00 EDT Heart Rate Monitored 84 bpm bpm Respiratory Rate - Anes 0 br/min br/min 10/04/2023 7:58 EDT Systolic Blood Pressure Non-Invasive 123 mmHg mmHg Diastolic Blood Pressure Non-Invasive 81 mmHg mmHg 10/04/2023 7:55 EDT Respiratory Rate - Anes 0 br/min br/min Systolic Blood Pressure Non-Invasive 131 mmHg mmHg Diastolic Blood Pressure Non-Invasive 86 mmHg mmHg 10/04/2023 6:42 EDT Temperature Oral 36.9 DegC Apical Heart Rate 87 bpm Respiratory Rate 14 br/min Systolic Blood Pressure Non-Invasive 111 mmHg Diastolic Blood Pressure Non-Invasive 76 mmHg . Mental status: at preoperative baseline. Respiratory function: respirations are non-labored. Respiratory support: none. CV function: Normal rate, Regular rhythm. Cardiovascular support: none. Pain: Post op control see nursing medication documentation. Nausea status: denies nausea. Postoperative hydration status: euvolemic. Digitally Signed by HODA YANG MD on 10/04/2023 11:13 AM [id number]* Exam Date Time Procedure Performing Provider Status 10/04/23 7:50 AM Ablation CV Auth (Verifi ed) [facility] 06-24-2024 History and physical note Date of Service 10/04/23 Chief Complaint atrial fibrillation -- her for ablation History of Present Illness HPI: 73-year-old with history of persistent atrial fibrillation, amiodarone- induced hypothyroidism,thoracic aortic aneurysm s/p type a dissection with 34 mm Hemashield 11/15/2020, CAD, coronary arteryfistula (proximal LAD to the main PA/right pulmonary artery), CKD, DM 2, left-sided weakness/bilateral frontoparietal foci of acute ischemia (11/30/2020), here for atrial fibrillation ablation. Stable hyperthyroid. Asymptomatic. Review of Systems Constitutional Symptoms: Denies weight loss/gain, fever/chills, or sweats Integumentary: Denies color changes, rash, sores, or lumps Eyes: Denies vision changes, blurriness, or pain ENT: Denies epistaxis, sore throat, or dysphagia Cardiovascular: See HPI Respiratory: Denies cough, sputum, or hemoptysis Musculoskeletal: Denies new pain, weakness, or swelling Gastrointestinal: Denies nausea, vomiting, GERD, diarrhea, constipation, abdominal pain, or hematemesis Neurological: Denies seizures, coordination issues, or paralysis Genitourinary: Denies dysuria, hematuria, burning, or renal stones Hematologic/Lymphatic: Denies bleeding disorders, night sweats, or tenderness of lymph nodes Psychiatric: Denies recent anxiety or depressive episodes. Physical Exam Vitals and Measurements T: 36.9 C (Oral) HR: 87 (Apical) RR: 14 BP: 111/76 SpO2: 96% HT: 188 cm WT: 108.1 kg Weight Dosing Weight: 108.1 kg (10/04/23) General Appearance: Alert and oriented x3, no apparent distress Head: Normocephalic, atraumatic EENT: EOMI, PERRLA, mucous membranes moist Neck: Supple, no thyromegaly. Cardiac: irregular, no mrg. Lungs: Clear to auscultation bilaterally, no wheezing, rales, rhonchi. Abdomen: Nondistended, nontender, bowel sounds present. Musculoskeletal: No gross deformities. Extremities: no significant lower extremity edema, no calf tenderness, pedal pulses are present bilaterally Neurological: No focal deficits Skin: Warm, dry, intact Psychiatric: Mood congruent, cooperative Lab Results 10/03 06:27 WBC: 5.9 Hgb: 15.4 Hct: 45.4 Platelet: 161 Neutrophil %: 65.3 Protime: 28.4 H PT International Ratio: 2.4 Imaging Results and Diagnostics none EKG pendnig Assessment/Plan HPI: 73-year-old with history of persistent atrial fibrillation, amiodarone- induced hypothyroidism,thoracic aortic aneurysm s/p type a dissection with 34 mm Hemashield 11/15/2020, CAD, coronary arteryfistula (proximal LAD to the main PA/right pulmonary artery), CKD, DM 2, left-sided weakness/bilateral frontoparietal foci of acute ischemia (11/30/2020), here for atrial fibrillation ablation. 1. Atrial fibrillation. Persistent. R/b of ablation d/w patient who wishes to proceed. - here for ablation. INR 2.4 stable. 2. Hyperthyroid. Stable. Asymptomatic. Amio induced. 3. COmorbid disease as ablve Sam Modi MD Cardiac Electrophysiology [phone] Problem List/Past Medical History Ongoing Acute on chronic systolic heart failure Aneurysm, thoracic aortic Aortic root dilation CORONARY ARTERY DISEASE, OCCLUSIVE CRF (CHRONIC RENAL FAILURE), STAGE 2 (MILD) ELEVATED GLUCOSE FISTULA, CORONARY ARTERY HFrEF (heart failure with reduced ejection fraction) HISTORY OF CHRONIC BACK PAIN Hyperlipidemia LOW HDL (UNDER 40) Lumbar radiculitis OBESITY (BMI 30-39.9) PERSISTENT ATRIAL FIBRILLATION PNEUMOCOCCAL VACCINATION GIVEN Postoperative anemia Preop cardiovascular exam RECEIVED INFLUENZA VACCINATION AT HOSPITAL RIGHT BUNDLE-BRANCH BLOCK SCOLIOSIS/KYPHOSCOLIOSIS Spinal stenosis, lumbar Type II diabetes mellitus Historical Elevated glucose Left-sided weakness/bilateral frontoparietal foci of acute ischemia Procedure/Surgical History Echocardiogram: 09/17/23 Cardioversion: 06/18/23 Lumbar radiculitis: 10/26/22 Echocardiogram: 09/29/22 Umbilical hernia, Laparoscopic converted to open primary umbilical hernia repair with small bowel resection: 08/16/22 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/2021 Cardioversion: 06/16/21 CT angiography of chest with contrast: 06/04/21 Echocardiogram: 11/21/20 Aortic valve replacement and aortoplasty: 11/19/20 Cardioversion: 01/26/19 Stress testing using pharmacologic-induced stress: 10/20/18 Cardiac catheterization: 10/18/18 Implantation of permanent spinal cord stimulator Atrial fibrillation Hernia repair Colonoscopy Medications Home Medications (9) Active acetaminophen-hydrocodone 325 mg-7.5 mg oral tablet 1 tab(s), PRN, Oral, q6h atorvastatin 40 mg oral tablet 40 mg = 1 tab(s), Oral, qDay Entresto 24 mg-26 mg oral tablet 1 tab(s), Oral, BID Farxiga 10 mg oral tablet 10 mg = 1 tab(s), Oral, qDay metoprolol succinate 25 mg oral TABLET extended release 25 mg = 1 tab(s), Oral, qDay Potassium Chloride (Eqv-K-Tab) 10 mEq oral tablet, extended release 10 mEq = 1 tab(s), Oral, qDay Vitamin C 500 mg oral tablet 500 mg = 1 tab(s), Oral, qDay Vitamin D3 25 mcg (1000 intl units) oral capsule 25 mcg = 1 cap(s), Oral, Daily Xarelto 20 mg oral tablet 20 mg = 1 tab(s), Oral, qPM Allergies penicillin Skin breakdown Social History Alcohol Use: Past., 05/13/2022 Home/Environment Domestic Concerns: None. Living situation: Home/Independent., 06/16/2021 Nutrition/Health Caffeine intake amount: 2 cups per week., 05/13/2022 Type of diet: Regular. Appetite Excellent. Eating Difficulties None., 06/16/2021 Sexual Gender Identity: Identifies as male., 08/30/2023 Substance Abuse Use: Past. Type: Marijuana. Frequency: 1-2 times per week., 11/30/2022 Tobacco Nicotine Use: Never (less than 100 in lifetime)., 05/19/2019 Family History Cancer: Mother, Father, Sister and Brother. Health Status Family Member(s) Immunizations pneumococcal 13-valent conjugate vaccine: 0.5 unknown unit (06/03/17) pneumococcal 23-valent vaccine(Pneumovax: 0.5 unknown unit (02/08/19) SARS-CoV-2 (COVID-19) mRNA-1273 vaccine: 0.5 unknown unit (08/02/20) SARS-CoV-2 (COVID-19) mRNA-1273 vaccine: 0.5 unknown unit (07/05/20) tetanus/diphth/pertuss (Tdap) adult/adol: 0 unknown unit (01/30/16) Code Status No qualifying data available. Digitally Signed by SAM MODI MD on 10/04/2023 07:45 AM [id number] Anesthesiology Consult note Patient: ELOISAELADIOJACKY Age: 73 years Sex: Male : 1950 Associated Diagnoses: None Author: HODA YANG MD Preoperative Information NPO > 8 hrs Anesthesia history Patient's history: negative. Family's history: negative. History of Present Illness The patient presents for preanesthesia evaluation with 73-year-old male with past medical history significant for hypertension, hyperlipidemia, A-fib anticoagulated with apixaban, thoracic aneurysm, CAD, HFpEF, CKD stage III presenting for AFib ablation. Patient denies recent CP, SOB, NVD, GERD symptoms. METs>4 . Review of Systems Ear/Nose/Mouth/Throat: Negative except as documented in history of present illness. Respiratory: Negative except as documented in history of present illness. Cardiovascular: Negative except as documented in history of present illness. Gastrointestinal: Negative except as documented in history of present illness. Genitourinary: Negative except as documented in history of present illness. Endocrine: Negative except as documented in history of present illness. Musculoskeletal: Negative except as documented in history of present illness. Integumentary: Negative except as documented in history of present illness. Neurologic: Negative except as documented in history of present illness. Health Status Allergies: Allergic Reactions (Selected) Severity Not Documented Penicillin- Skin breakdown., Allergies (1) ActiveSeverityReaction penicillinSkin breakdown Current medications: (Selected) Inpatient Medications Ordered Betadine 10% topical solution: 17.5 mL, mL/hr, Topical (INT), PREOP pharm Bicitra: 30 mL, Oral, PREOP pharm Bolus LR 1000 mL: 1,000 mL, IV Bolus, PREOP pharm Cyklokapron IVPB: 2,000 mg, 20 mL, mL/hr, Topical (INT), PREOP pharm Decadron: 10 mg, 1 mL, IV Push, AsDirected Kefzol: 3 gram(s), 200 mL/hr, IV Piggyback, PREOP pharm NS 1,000 mL: 50 mL/hr, Intravenous Naropin 25 mg + Toradol 15 mg + EPINEPHrine 1 mg/mL injectable solution 0.3 mg + morphine 2.5 mg...: 25 mg, 5 mL, mL/hr, Other, PREOP pharm Naropin 25 mg + Toradol 15 mg + EPINEPHrine 1 mg/mL injectable solution 0.3 mg + morphine 2.5 mg...: 25 mg, 5 mL, mL/hr, Other, PREOP pharm OxyCONTIN: 10 mg, 1 tab(s), Oral, PREOP pharm Pepcid IV: 20 mg, 2 mL, IV Push, PREOP pharm vancomycin: 1,750 mg, 35 mL, 306 mL/hr, IV Piggyback, PREOP pharm Prescriptions Prescribed Entresto 24 mg-26 mg oral tablet: 1 tab(s), Oral, BID, 180 tab(s), 3 Refill(s) Potassium Chloride (Eqv-K-Tab) 10 mEq oral tablet, extended release: 10 mEq, 1 tab(s), Oral, qDay, 90 tab(s), 3 Refill(s) Xarelto 20 mg oral tablet: 20 mg, 1 tab(s), Oral, qPM, 90 tab(s), 3 Refill(s) acetaminophen-hydrocodone 325 mg-7.5 mg oral tablet: 1 tab(s), Oral, q6h, for 30 day(s), PRN: for pain, 120 tab(s), 0 Refill(s) metoprolol succinate 25 mg oral TABLET extended release: 25 mg, 1 tab(s), Oral, qDay, 90 tab(s), 3 Refill(s) Documented Medications Documented Farxiga 10 mg oral tablet: 10 mg, 1 tab(s), Oral, qDay, 90 tab(s), 0 Refill(s) Vitamin C 500 mg oral tablet: 500 mg, 1 tab(s), Oral, qDay Vitamin D3 25 mcg (1000 intl units) oral capsule: 25 mcg, 1 cap(s), Oral, Daily, 0 Refill(s) atorvastatin 40 mg oral tablet: 40 mg, 1 tab(s), Oral, qDay, 30 tab(s), 0 Refill(s), Medications (1) Active Scheduled: (0) Continuous: (1) NS (0.9% nacl) 1,000 mL 1,000 mL, Intravenous, 50 mL/hr PRN: (0) Problem list: Medical Acute on chronic systolic heart failure / SNOMED CT 2378919840 / Confirmed Postoperative anemia / SNOMED CT 410838113 / Confirmed Aneurysm, thoracic aortic / SNOMED CT 3954834470 / Confirmed Aortic root dilation / SNOMED CT 044409922 / Confirmed OBESITY (BMI 30-39.9) / SNOMED CT 275983017 / Confirmed LOW HDL (UNDER 40) / SNOMED CT 193708528 / Confirmed CRF (CHRONIC RENAL FAILURE), STAGE 2 (MILD) / SNOMED CT 2035375789 / Confirmed CORONARY ARTERY DISEASE, OCCLUSIVE / SNOMED CT 26769324 / Confirmed FISTULA, CORONARY ARTERY / SNOMED CT 1694528698 / Confirmed HISTORY OF CHRONIC BACK PAIN / SNOMED CT 831900677 / Confirmed RECEIVED INFLUENZA VACCINATION AT HOSPITAL / SNOMED CT 829299666 / Confirmed HFrEF (heart failure with reduced ejection fraction) / SNOMED CT 1923689094 / Confirmed Hyperlipidemia / SNOMED CT 94145882 / Confirmed ELEVATED GLUCOSE / SNOMED CT 720930889 / Confirmed SCOLIOSIS/KYPHOSCOLIOSIS / SNOMED CT 249362182 / Confirmed Lumbar radiculitis / SNOMED CT 4964498149 / Confirmed Preop cardiovascular exam / SNOMED CT 062354196 / Confirmed PERSISTENT ATRIAL FIBRILLATION / SNOMED CT 8960860825 / Confirmed PNEUMOCOCCAL VACCINATION GIVEN / SNOMED CT 802681766 / Confirmed RIGHT BUNDLE-BRANCH BLOCK / SNOMED CT 07337643 / Confirmed Spinal stenosis, lumbar / SNOMED CT 14103011 / Confirmed Type II diabetes mellitus / SNOMED CT 531685257 / Confirmed Resolved: Elevated glucose / SNOMED CT 735641353 Resolved: Left-sided weakness/bilateral frontoparietal foci of acute ischemia / SNOMED CT 210048587 Canceled: ACUTE ON CHRONIC SYSTOLIC (CONGESTIVE) HEART FAILURE / SNOMED CT 4367406859 Canceled: Encounter for monitoring cardiotoxic drug therapy / SNOMED CT 748055370 Canceled: Fatigue / SNOMED CT 510996923 Canceled: Newly diagnosed diabetes HgbA1C 6.9 / SNOMED CT 8780151116 Canceled: BMI 28.0-28.9,adult / SNOMED CT 1842298971, Active Problems (34) Acute chest pain Acute on chronic systolic heart failure AF (atrial fibrillation) Aneurysm, thoracic aortic Aortic root dilation Arthritis CHF (congestive heart failure) CORONARY ARTERY DISEASE, OCCLUSIVE CRF (CHRONIC RENAL FAILURE), STAGE 2 (MILD) ELEVATED GLUCOSE FISTULA, CORONARY ARTERY Glasses HFrEF (heart failure with reduced ejection fraction) Hiatal hernia HISTORY OF CHRONIC BACK PAIN HTN (hypertension) Hyperlipidemia LOW HDL (UNDER 40) Lumbar radiculitis OBESITY (BMI 30-39.9) Osteoarthritis Pain management PERSISTENT ATRIAL FIBRILLATION PNEUMOCOCCAL VACCINATION GIVEN Postoperative anemia Preop cardiovascular exam RECEIVED INFLUENZA VACCINATION AT HOSPITAL RIGHT BUNDLE-BRANCH BLOCK Scoliosis SCOLIOSIS/KYPHOSCOLIOSIS Spinal stenosis Spinal stenosis, lumbar Type II diabetes mellitus Wrist fracture Histories Past Medical History: Resolved Left-sided weakness/bilateral frontoparietal foci of acute ischemia (371067904): Resolved. Elevated glucose (333706562): Resolved. Procedure history: Echocardiogram ([id number]) on 09/17/2023 at 73 Years. Comments: 09/20/2023 15:27 Justyna Martinez LPN Summary: 1. Left ventricle: The cavity size is normal. Wall thickness is mildly to moderately increased. Concentric Left Ventricular Hypertrophy Systolic function is normal. The estimated ejection fraction is 55- 60%. Wall motion is normal; there are no regional wall motion abnormalities. Diastolic dysfunction present but unable to assess severity. Echodensity in LVOT. Likely LVOT calcium. Differential includes mass. 2. Ventricular septum: Thickness is moderately increased. Septal motion is paradoxical. 3. Aortic valve: There is trivial regurgitation. 4. Mitral valve: The annulus is moderately calcified. The leaflets are mildly thickened. There is mild regurgitation. Echodensity in MV. No independent mobility. LIKELY MAC. Differential includes mass. 5. Left atrium: The atrium is mildly to moderately dilated. 6. Right ventricle: Systolic function is reduced. The RV systolic pressure by Doppler is 45 mm Hg. 7. Right atrium: The atrium is mildly to moderately dilated. The estimated right atrial pressure is3 mm Hg. 8. Atrial septum: Agitated saline shows no shunt. Cardioversion ([id number]) on 06/18/2023 at 72 Years. Lumbar radiculitis ([id number]) on 10/26/2022 at 72 Years. Echocardiogram ([id number]) on 09/29/2022 at 72 Years. Comments: 10/15/2022 14:01 Carlee Mcneil MA (ABR-OE) 1. Left ventricle: The cavity size is moderately increased. Wall thickness is moderately increased.Systolic function is moderately reduced. The estimated ejection fraction is 35-40%. Severe hypokinesis of the inferolateral and inferior myocardium. Diastolic dysfunction present but unable to assess severity. 2. Aortic valve: Thickening, consistent with sclerosis. There is mild, 1+ regurgitation. 3. Mitral valve: The annulus is moderately to severely calcified. There is moderate, 2+ regurgitation. 4. Left atrium: The atrium is moderately dilated. 5. Right ventricle: Systolic pressure is moderately increased. The RV systolic pressure by Doppler is 64 mm Hg. 6. Tricuspid valve: There is moderate, 2+ regurgitation. 7. Right atrium: The atrium is moderately dilated. The estimated right atrial pressure is 15 mm Hg. Umbilical hernia, Laparoscopic converted to open primary umbilical hernia repair with small bowel resection ([id number]) on 08/16/2022 at 72 Years. Comments: 09/01/2022 15:47 EDT - Patience Bess FUR IRONER Laparoscopic converted to open primary umbilical hernia repair with small bowel resection PM Inj Spine L/S With Imaging SN on 06/29/2022 at 71 Years. Comments: 06/29/2022 8:49 SWATHI Carlos auto-populated from documented surgical case History of reverse left total shoulder arthroplasty ([id number]) in the month of 12/2021 at 71 Years. Comments: 05/13/2022 14:[address] [facility] Cardioversion ([id number]) on 06/16/[address] angiography of chest with contrast ([id number]) on 06/04/2021 at 70 Years. Echocardiogram ([id number]) on 11/21/2020 at 70 Years. Comments: 03/15/2021 12:17 Mere Singh LPN (11/21/20) Summary: 1. Left ventricle: The cavity size is increased. Systolic function is mildly reduced. The estimatedejection fraction is 45-50%. Mild diffuse hypokinesis. Diastolic dysfunction is present. 2. Aortic valve: There is mild stenosis. There is mild regurgitation. 3. Mitral valve: The annulus is calcified. There is mild to moderate regurgitation. 4. Left atrium: The atrium is mildly dilated. 5. Right ventricle: Systolic function is reduced. The RV systolic pressure by Doppler is 54 mm Hg. 6. Right atrium: The atrium is mildly dilated. The estimated right atrial pressure is 3 mm Hg. 7. Pericardium, extracardiac: There is a right pleural effusion. Aortic valve replacement and aortoplasty ([id number]) on 11/19/2020 at 70 Years. Comments: 03/15/2021 12:17 Mere Singh LPN REPAIR ASCENDING AORTIC DISSECTION USING HEMASHIELD 34 MM WOVEN GRAFT, INSERTION TEMPORARY PACING WIRES Cardioversion ([id number]) on 01/26/2019 at 68 Years. Comments: 05/19/2019 9:01 Carlee Diaz MA (ABR-OE) successful cardioversion to normal sinus rhythm Stress testing using pharmacologic-induced stress ([id number]) on 10/20/2018 at 68 Years. Comments: 05/19/2019 9:00 Carlee Diaz MA (ABR-OE) EKG portion of Lexiscan stress test is negative for inducible ischemia 1. Reversible defect in the inferior, inferolateral, lateral and anterolateral bhandari suggesting ischemia in this area. 2. Mildly dilated LEFT ventricle with an ejection fraction of 26%. Wall motion as above. Cardiac catheterization ([id number]) on 10/18/2018 at 68 Years. Comments: 05/19/2019 8:57 Carlee Diaz MA (ABR-OE) SUMMARY: 1. Right coronary: Proximal vessel lesion: There is a 100% stenosis. Appearance of POLYETHYLENE COMBINER with small jump collaterals to mid RCA. RPDA fills via collaterals from the LAD. 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 IMPRESSIONS: 1. Single vessel coronary artery disease, predominantly involving the RCA. 2. The proximal lesion has appearance of chronic total occlusion with small jump collaterals to midRCA. There are collaterals filling the RPDA from left anterior descending artery. 3. 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 4. Case discussed with CT surgery due to incidental finding of LAD fistula to PA. Will pursue stress test to evaluate for anterior wall ischemia possibly related to shunt from proximal LAD fistula Hernia repair ([id number]). Colonoscopy ([id number]). Implantation of permanent spinal cord stimulator ([id number]). Comments: 06/18/2023 6:52 Yesenia Hagan RN nevro Atrial fibrillation ([id number]). Comments: 08/25/2023 9:20 EDT - sRobyn MA July 2023 Social History: Social & Psychosocial Habits Alcohol 09/16/2023 Use: Past Substance Abuse 09/16/2023 Use: Past Type: Marijuana Frequency: 1-2 times per week Comment: has a medical card for this uses gummies and ointments - 05/13/2022 14:04 - SWATHI Jones Tobacco 09/16/2023 Tobacco Use: Never (less than 100 in l Home/Environment 09/16/2023 Domestic Concerns None Living situation: Home/Independent Nutrition/Health 09/16/2023 Type of diet: Regular Appetite Excellent Eating Difficulties None 09/16/2023 Caffeine intake amount: 2 cups per week Sexual 09/16/2023 What is your current gender identity? (Check all that apply) Identifies as male Physical Examination No qualifying data available General: Alert and oriented, No acute distress. Airway: Normal temporomandibular joint mobility, Normal mouth, Normal neck range of motion. Mallampati classification: II (soft palate, fauces, uvula visible). Dentition Evaluation: Dentures, upper. Respiratory: Lungs are clear to auscultation. Cardiovascular: Normal rate, Regular rhythm. Heart Sounds: Normal. Neurologic: Alert, Oriented, No focal deficits. Review / Management Results review: No qualifying data available . Documentation reviewed: Current records. Assessment and Plan [place] [employer]hesi[employer] (ASA) physical status classification: Class III. Anesthetic Preoperative Plan Premedication: intravenous. Anesthetic technique: General. Induction: intravenously. Maintenance airway: Oral endotracheal tube. Special Monitoring: Arterial line. Postoperative pain management: Per surgeon. Risks discussed: nausea, vomiting, sore throat, dental injury, hypotension, allergic reaction, serious complications. Informed consent: signed by patient. Digitally Signed by HODA YANG MD on 10/04/2023 07:39 AM [id number] Discharge instructions Patient Education 09/17/2023 14:40:35 Transient Ischemic Attack, Aclm-ul-Ajux Transient Ischemic Attack A transient ischemic attack (TIA) is a warning stroke that causes stroke-like symptoms that go away quickly. A TIA does not cause lasting damage to the brain. But having a TIA is a sign that you may be at risk for a stroke. Lifestyle changes and medical treatments can help prevent a stroke. It is important to know the symptoms of a TIA and what to do. Get help right away, even if your symptoms go away. The symptoms of a TIA are the same as those of a stroke. They can happen fast, and they usually go away within minutes or hours. They can include: Weakness or loss of feeling in your face, arm, or leg. This often happens on one side of your body. Trouble walking. Trouble moving your arms or legs. Trouble talking or understanding what people are saying. Trouble seeing. Seeing two of one object (double vision). Feeling dizzy. Feeling confused. Loss of balance or coordination. Feeling sick to your stomach (nauseous) and throwing up (vomiting). A very bad headache for no reason. What increases the risk? Certain things may make you more likely to have a TIA. Some of these are things that you can change, such as: Being very overweight (obese). Using products that contain nicotine or tobacco, such as cigarettes and e-cigarettes. Taking control pills. Not being active. Drinking too much alcohol. Using drugs. Other risk factors include: Having an irregular heartbeat (atrial fibrillation). Being or . Having had blood clots, stroke, TIA, or heart attack in the past. Being a woman with a history of high blood pressure in (preeclampsia). Being over the age of 60. Being male. Having family history of stroke. Having the following diseases or conditions: ?High blood pressure. ?High cholesterol. ?Diabetes. ?Heart disease. ?Sickle cell disease. ?Sleep apnea. ?Migraine headache. ?Long-term (chronic) diseases that cause soreness and swelling (inflammation). ?Disorders that affect how your blood clots. Follow these instructions at home: Medicines Take [id number] and prescription medicines only as told by your doctor. If you were told to take aspirin or another medicine to thin your blood, take it exactly as told byyour doctor. ?Taking too much of the medicine can cause bleeding. ?Taking too little of the medicine may not work to treat the problem. Eating and drinking Eat 5 or more servings of fruits and vegetables each day. Follow instructions from your doctor about your diet. You may need to follow a certain diet to helplower your risk of having a stroke. You may need to: ?Eat a diet that is low in fat and salt. ?Eat foods that contain a lot of fiber. ?Limit the amount of carbohydrates and sugar in your diet. Limit alcohol intake to 1 drink a day for non women and 2 drinks a day for men. One drink equals 12 oz of beer, 5 oz of wine, or 1 oz of hard liquor. General instructions Keep a healthy weight. Stay active. Try to get at least 30 minutes of activity on all or most days. Find out if you have a condition called sleep apnea. Get treatment if needed. Do not use any products that contain nicotine or tobacco, such as cigarettes and e-cigarettes. If you need help quitting, ask your doctor. Do not abuse drugs. Keep all follow-up visits as told by your doctor. This is important. Get help right away if: You have any signs of stroke. BE FAST is an easy way to remember the main warning signs: ?B - Balance. Signs are dizziness, sudden trouble walking, or loss of balance. ?E - Eyes. Signs are trouble seeing or a sudden change in how you see. ?F - Face. Signs are sudden weakness or loss of feeling of the face, or the face or eyelid droopingon one side. ?A - Arms. Signs are weakness or loss of feeling in an arm. This happens suddenly and usually on one side of the body. ?S - Speech. Signs are sudden trouble speaking, slurred speech, or trouble understanding what people say. ?T - Time. Time to call emergency services. Write down what time symptoms started. You have other signs of stroke, such as: ? A sudden, very bad headache with no known cause. ? Feeling sick to your stomach (nausea). ? Throwing up (vomiting). ?Jerky movements that you cannot control (seizure). These symptoms may be an emergency. Do not wait to see if the symptoms will go away. Get medical help right away. Call your local emergency services (911 in the [place] Do not drive yourself to the hospital. Summary A transient ischemic attack (TIA) is a warning stroke that causes stroke-like symptoms that go away quickly. A TIA is a medical emergency. Get help right away, even if your symptoms go away. A TIA does not cause lasting damage to the brain. Having a TIA is a sign that you may be at risk for a stroke. Lifestyle changes and medical treatments can help prevent a stroke. This information is not intended to replace advice given to you by your health care provider. Make sure you discuss any questions you have with your health care provider. Document Released: 01/05/2009 Document Revised: 12/23/2018 Document Reviewed: 06/30/2017 [employer] Patient Education 2020 [employer]. Follow Up Care 09/16/2023 12:54:07 With:MELVINA SAENZ Address: [address] [address] [phone] When:09/23/2023 15:30:00 Comments:This is your post-hospital appointment. Follow-up as scheduled. [facility] 06-07-2024 Summary of episode note Discharge Instructions Thank you for allowing [facility] to assist you with your healthcare needs. The following is importantdischarge information regarding your hospital visit. Your Care Team Franklyn Restrepo CNP Your Diagnosis AF (atrial fibrillation) Chronic pain Dizziness Heart failure with mildly reduced ejection fraction What to do next Instructions From Your Doctor You are admitted for a stroke workup. No acute stroke was found. You are evaluated by therapy services with no recommendations. Please stop taking Lasix until you can be reevaluated by your cardiology team. You had an echocardiogram with bubble study. This is not yet resulted. Please follow-up with your PCP and/your egg sorter for results. Scheduled Follow-Up Appointments Appointment Type When With Where Contact Information StatusCV OV 10/07/2023 01:30 PM EDT ARLEY SERNA APRN-PA[employer]ACH[employer] [facility] Confirmed PM OV 10/15/2023 08:00 AM EDT NATALIA SARGENT MD [facility] PM [address] [place] [address]- [phone] Confirmed CV [facility]ERICAL AND OFFICE [facility]PPORT [facility] 10/22/2023 10:00 AM EDT [facility] Confirmed PM OV 11/17/2023 09:00 AM EDT TYLER ROJAS [facility] PM [address] [place] [address]- [phone] Confirmed EP Abl[facility] 11/29/2023 01:00 PM EDT Heart Lab Confirmed Follow Up Appointments Follow Up with HODA GRAYSON MD When:Within 3-5 days Where:[address] [place] [address]- [phone] The Following Activity and Diet Have Been Ordered for You Discharge Activity - Ordered -- Resume your pre-hospitalization activity, 09/17/23 13:58:00 EDT Discharge Diet - Ordered -- No changes were made to your diet during your hospital stay. Please resume your pre hospitalization diet on discharge., 09/17/23 13:58:00 EDT The Following Treatments Have Been Ordered for You Discharge Labs No qualifying data available. Discharge Radiology No qualifying data available. Other Therapies No qualifying data available. Post Acute Orders No qualifying data available. Allergies penicillin Skin breakdown Medications Please ask your primary doctor or pharmacist before taking any other medication not listed, including over the counter drugs, herbal medications, vitamins and or supplements as they may interact withyour home medications. What How Much When Why Instructions Last Dose Unchanged acetaminophen- hydrocodone (acetaminophen-hydrocodone 325 mg-7.5 mg oral tablet) 1 tab(s) by mouth Every 6 hours as needed for for pain Lumbar radiculitis SCOLIOSIS/KYPHOSCOLIOSIS Duration: 30 Days Unchanged ascorbic acid (Vitamin C 500 mg oral tablet) 1 tab(s) by mouth Once a day Unchanged atorvastatin (atorvastatin 40 mg oral tablet) 1 tab(s) by mouth Once a day Unchanged cholecalciferol (Vitamin D3 25 mcg (1000 intl units) oral capsule) 1 cap by mouth Every day Unchanged dapagliflozin (Farxiga 10 mg oral tablet) 1 tab(s) by mouth Once a day Unchanged metoprolol (metoprolol succinate 25 mg oral TABLET extended release) 1 tab(s) by mouth Once a day Unchanged potassium chloride (Potassium Chloride (Eqv-K-Tab) 10 mEq oral tablet, extended release) 1 tab(s) by mouth Once a day Unchanged rivaroxaban (Xarelto 20 mg oral tablet) 1 tab(s) by mouth Once a day (in the evening) Unchanged sacubitril-valsartan (Entresto 24 mg-26 mg oral tablet) 1 tab(s) by mouth Two (2) times a day What How Much When Comments Stop Taking bumetanide (bumetanide 1 mg oral tablet) Stop Taking furosemide (Lasix 20 mg oral tablet) 1 tab(s) by mouth Two (2) times a day AM and Lunch Please take this list to your next doctor s visit. Bring all medications you take, including over the counter medications, herbals and other supplements with you to your doctor s visit. Patients and families are reminded to discard old lists and to update any records with all medication providers or retail pharmacies. Education Materials Transient Ischemic Attack A transient ischemic attack (TIA) is a warning stroke that causes stroke-like symptoms that go away quickly. A TIA does not cause lasting damage to the brain. But having a TIA is a sign that you may be at risk for a stroke. Lifestyle changes and medical treatments can help prevent a stroke. It is important to know the symptoms of a TIA and what to do. Get help right away, even if your symptoms go away. The symptoms of a TIA are the same as those of a stroke. They can happen fast, and they usually go away within minutes or hours. They can include: Weakness or loss of feeling in your face, arm, or leg. This often happens on one side of your body. Trouble walking. Trouble moving your arms or legs. Trouble talking or understanding what people are saying. Trouble seeing. Seeing two of one object (double vision). Feeling dizzy. Feeling confused. Loss of balance or coordination. Feeling sick to your stomach (nauseous) and throwing up (vomiting). A very bad headache for no reason. What increases the risk? Certain things may make you more likely to have a TIA. Some of these are things that you can change, such as: Being very overweight (obese). Using products that contain nicotine or tobacco, such as cigarettes and e-cigarettes. Taking control pills. Not being active. Drinking too much alcohol. Using drugs. Other risk factors include: Having an irregular heartbeat (atrial fibrillation). Being or . Having had blood clots, stroke, TIA, or heart attack in the past. Being a woman with a history of high blood pressure in (preeclampsia). Being over the age of 60. Being male. Having family history of stroke. Having the following diseases or conditions: ? High blood pressure. ? High cholesterol. ? Diabetes. ? Heart disease. ? Sickle cell disease. ? Sleep apnea. ? Migraine headache. ? Long-term (chronic) diseases that cause soreness and swelling (inflammation). ? Disorders that affect how your blood clots. Follow these instructions at home: Medicines Take [id number] and prescription medicines only as told by your doctor. If you were told to take aspirin or another medicine to thin your blood, take it exactly as told byyour doctor. ? Taking too much of the medicine can cause bleeding. ? Taking too little of the medicine may not work to treat the problem. Eating and drinking Eat 5 or more servings of fruits and vegetables each day. Follow instructions from your doctor about your diet. You may need to follow a certain diet to helplower your risk of having a stroke. You may need to: ? Eat a diet that is low in fat and salt. ? Eat foods that contain a lot of fiber. ? Limit the amount of carbohydrates and sugar in your diet. Limit alcohol intake to 1 drink a day for non women and 2 drinks a day for men. One drink equals 12 oz of beer, 5 oz of wine, or 1 oz of hard liquor. General instructions Keep a healthy weight. Stay active. Try to get at least 30 minutes of activity on all or most days. Find out if you have a condition called sleep apnea. Get treatment if needed. Do not use any products that contain nicotine or tobacco, such as cigarettes and e-cigarettes. If you need help quitting, ask your doctor. Do not abuse drugs. Keep all follow-up visits as told by your doctor. This is important. Get help right away if: You have any signs of stroke. BE FAST is an easy way to remember the main warning signs: ? B - Balance. Signs are dizziness, sudden trouble walking, or loss of balance. ? E - Eyes. Signs are trouble seeing or a sudden change in how you see. ? F - Face. Signs are sudden weakness or loss of feeling of the face, or the face or eyelid drooping on one side. ? A - Arms. Signs are weakness or loss of feeling in an arm. This happens suddenly and usually on oneside of the body. ? S - Speech. Signs are sudden trouble speaking, slurred speech, or trouble understanding what peoplesay. ? T - Time. Time to call emergency services. Write down what time symptoms started. You have other signs of stroke, such as: ? A sudden, very bad headache with no known cause. ? Feeling sick to your stomach (nausea). ? Throwing up (vomiting). ? Jerky movements that you cannot control (seizure). These symptoms may be an emergency. Do not wait to see if the symptoms will go away. Get medical help right away. Call your local emergency services (911 in the [place] Do not drive yourself to the hospital. Summary A transient ischemic attack (TIA) is a warning stroke that causes stroke-like symptoms that go away quickly. A TIA is a medical emergency. Get help right away, even if your symptoms go away. A TIA does not cause lasting damage to the brain. Having a TIA is a sign that you may be at risk for a stroke. Lifestyle changes and medical treatments can help prevent a stroke. This information is not intended to replace advice given to you by your health care provider. Make sure you discuss any questions you have with your health care provider. Document Released: 01/05/2009 Document Revised: 12/23/2018 Document Reviewed: 06/30/2017 [employer] Patient Education 2020 [employer]. Additional Information VACCINATE! IT SAVES LIVES! Members of the community who have not yet received the COVID-19 vaccine and would like to receive it can visit one of [facility] vaccine clinics. There are many vaccine clinic locations within the [facility]. For locations and available times, please visit [email or web address].[place].gov/. It is important to note that some COVID mobile vaccine clinics are held outdoors and may be canceled in rainy or stormy conditions. To learn more about pediatric vaccinations (ages 5-11), we invite you to visit the [facility] webpage. [email or web address]/[email or web address] stions.htmlTo learn more about the COVID-19 vaccine, we invite you to visit the CDC website for a list of frequently asked questions.https://www.cdc.gov/coronavirus/2019-ncov/vaccines/faq.html OpenText Patient Portal Access Instructions: Stay connected with your healthcare team and access your personal medical information anytime with the OpenText Patient Portal. Please follow the directions below to create your OpenText account: 1.Access the email account you provided upon registration to the hospital/physician office.2.Look for an invitation email from [facility].3.Open the email and access the invitation link: [facility]Invitation to [facility].4.Fill in the required crockett to create your account. To access your account, visit [email or web address]. Click the blue button labeled Access Patient Portal and then log in with the username and password that you created in the steps above. You will be able to view your test results, lab results, a summary of your visits, upcoming appointments and more. There is also a convenient messaging option where you can send secure messages to your p rovider. In addition, you will have the ability to download any documents or summaries to your computer and/or send the information securely to a physician. Remember that your healthcare information is confidential, so carefully consider who you will allowto register on the [facility] Patient Portal for access to your information. You can also access the [facility] Patient Portal on the [facility] karie. Simply click on Patient Portal and then log into your account. If you would like to receive a full copy of your medical records, please contact the [facility] Medical Records Department by calling [phone], Wednesday through Wednesday between 8 a.m. and 4:30 p.m. HOW TO SAFELY DISPOSE OF PRESCRIPTION MEDICATIONS Please use one of the following methods to safely dispose of your unused medications. 1.Use a drug disposal kit: the drug disposal pouch allows you to safely discard your old and unuseddrugs. Ask your nurse to give you one when you are discharged.2.Visit a local take-back location: Many local pharmacies and police departments have programs that collect old and unwanted prescriptiondrugs. Call your local pharmacy or go to http://bit.ly/8M6Dw2b to find one close to you.3.Make use of household items: Use cat litter or old coffee grounds to dispose medications if other options arenot available. Mix your drugs with these household products, seal them in an airtight container andthrow it into the garbage. Call [facility]: [phone] to be sure your drugs can be disposed of in this way. Some medicines may require a different approach.4.Never flush your medications down the toilet. IF YOU HAVE BEEN PRESCRIBED AN OPIOID FOR PAIN If you have been prescribed an opioid (such as hydrocodone, oxycodone or morphine), it is critical to understand the possible side effects and risks of opioid pain medications. Even when taken as directed, opioids can have several side effects including: Tolerance, meaning you might need to take more of a medication for the same pain relief. Nausea, vomiting and/or constipation. Sleepiness, dizziness, dry mouth, confusion, depression or itching. Physical dependence, meaning you have withdrawal symptoms when a medication is stopped, can develop within a few days. KNOW YOUR RESPONSIBILITIES It is important to know exactly how much and how often to take the opioid pain medications you are prescribed. Never take opioids in higher amounts or more often than prescribed. Do not combine opioids with alcohol or other drugs that cause drowsiness, such as benzodiazepines, also known as benzos, including diazepam and alprazolam, muscle relaxants or sleep aids. Never sell or share prescription opioids. This is illegal. Store opioids in a secure place and out of reach of others (including children, family, friends and visitors). The last page of this document has been signed and retained as a CHART COPY. Signatures Patient Education Materials Transient Ischemic Attack, Ympj-yf-Xsew Medication Leaflets My discharge plan and instructions have been reviewed and explained to me and I,JACKY ELLIS understand my current condition and have read and understand these discharge instructions. I have received a written copy of the plan/instructions. If I have questions, I am aware that I should contact my doctor. 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: Date/Time: Relationship to Patient: Witness Name/Signature: Date/Time: [facility] [id number] Note* Exam Date Time Procedure Performing Provider Status 09/17/23 12:53 PM Echocardiogram, Adul t with Bubble Study- Auth (Verified) [facility] 06-07-2024 Note ORIGINAL HISTORY: TIA COMPARISON: 20 November 2020 TECHNIQUE: 1. Sagittal T1-weighted images. 2. Axial T2-weighted and T2*-weighted images. 3. Axial FLAIR images. 4. Axial diffusion-weighted images with ADC map. FINDINGS: The ventricles and sulci are mildly enlarged. There are no abnormal intra or extra-axial fluid collections. There is mild punctate and nodular T2 hyperintensity in the cerebral white matter. There are remote lacunar infarcts in the periventricular white matter on both sides. Salcedo-white matter differentiation is maintained. There is no abnormal restriction of diffusion. IMPRESSION: Volume loss, small vessel ischemic disease and several remote lacunar infarcts. Lacunar infarcts are not well visualized on the comparison, possibly due in part to motion. Interpreted by: Abdi Gilmore MD Preliminary Report By: Abdi Gilmore MD Electronically signed By Abdi Gilmore MD Dictated Date: 09/17/2023 9:56:31 AM Prelim Date: 09/17/2023 9:59:27 AM Sign Date: 09/17/2023 9:59:27 AM Ordering Provider: [facility]LYN [facility]06-06[facility]2024 Note Date of Service 09/16/2023 Chief Complaint Pt states he is in a fib today. Pt states dizziness with ambulation. Pt denies chest pain at this time History of Present Illness 73-year-old male with past medical history significant for hypertension, hyperlipidemia, A-fib anticoagulated with apixaban, thoracic aneurysm, CAD, HFpEF, CKD stage III. Patient presented to [facility] emergency department on 09/16/2023 with reports of nausea and dizziness. Patient woke up around 4 AM feeling more tired than usual. He went back to bed for a few hours. When he woke up around 9 AM he felt disoriented, dizzy, nauseated. He was also having a difficult time Focusing his eyes. he was very unsteady and had to crawl to the bathroom and then back to his bed. He laid down briefly and when he got up he was able to ambulate but was having some chest pressure. He called a friend to bring him to the emergency department. In the emergency department he was afebrile and hemodynamically stable with adequate oxygenation on room air. No leukocytosis. Creatinine 1.67 with a GFR of 40 which is near baseline. Troponin 33 and then 28. TSH less than 0.1. He recently had amiodarone discontinued due to thyroid function. CT of the brain was degraded by motionbut showed no significant interval change. CTA of the neck showed no stenosis. CTA of the head showed no LVO. X-ray chest showed mild central vascular congestion. Telehealth neurology consultation done with recommendation for MRI of the brain that may be done on an outpatient basis. Patient was brought in for therapy/vestibular evaluation. On exam today, pt denies any fever or chills. No headache. Still having dizziness but improved. Denies chest pain, palpitations. No cough, dyspnea, sputum production. Denies N/V/D/C. No melena/hematochezia. No dysuria or hematuria. No new paresthesias. Review of Systems See HPI for specific ROS. All other systems reviewed and negative. Physical Exam Vitals and Measurements T: 36.4 C (Oral) HR: 88 RR: 18 BP: 174/110 SpO2: 97% HT: 188 cm WT: 104.5 kg BMI: 29.57 Weight Dosing Weight: 104.5 kg (09/16/23) Dosing Weight: 104.5 kg (09/16/23) GEN: Appears chronically ill EYES: No conjunctival erythema, drainage. EOMI EARS: Hearing grossly intact. NOSE: No nasal discharge. THROAT: Oral cavity and pharynx pink and moist. CHEST: Normal S1 and S2. Rhythm is regular. Clear to auscultation, without rales, rhonchi, wheezing. ABD: Positive bowel sounds x 4 quads. Soft, nondistended, nontender. EXT: No significant deformity or joint abnormality. No edema. Peripheral pulses intact. NEURO: NIH score 0. SKIN: Skin color normal PSYCH: The mental examination revealed the patient was alert and oriented x 4 Lab Results 09/15 13:33 WBC: 4.9 Hgb: 15.5 Hct: 46.5 Platelet: 179 Neutrophil %: 60.6 Glucose Level: 112 H Sodium Level: 141 Potassium Level: 4.9 BUN: 29 H Creatinine Lvl (s): 1.67 H Imaging Results and Diagnostics XR Chest 2 Views Result Date: September 16, 2023 Verified By: CLAUS NI MD CLINICAL STATEMENT: IMPRESSION: Mild central vascular congestion. CT Angiography Neck w/ Contrast Result Date: September 16, 2023 Verified By: ABDI GILMORE MD CLINICAL STATEMENT: IMPRESSION: No hemodynamically significant stenosis of either internal carotid artery. CT Angiography Head w/ Contrast Result Date: September 16, 2023 Verified By: ABDI GILMORE MD CLINICAL STATEMENT: IMPRESSION: Limited examination. No large vessel occlusion is seen. CT Head or Brain w/o Contrast Result Date: September 16, 2023 Verified By: ABDI GILMORE MD CLINICAL STATEMENT: IMPRESSION: No significant interval change. EKG EC09/16/23: Atrial fibrillation Right bundle branch block Baseline wander in lead(s) aVF Electronic Signature: MD MOISES, ALYSSA NEWTON 09/16/2023 13:51:25 Assessment/Plan 1. Dizziness 2. AF (atrial fibrillation) 3. Heart failure with mildly reduced ejection fraction 4. Chronic pain Dizziness patient had dizziness, vision changes, chest pressure. Troponins within normal limits. EKG shows A-fib which is chronic. CT, CTA head and neck unremarkable. Obtain MRI of the brain, echocardiogram with bubble study, consult PT and OT. Would appreciate a vestibular evaluation as well. Atrial fibrillation continue metoprolol and Xarelto. Rate controlled. HFmrEF-most recent echocardiogram shows mildly reduced LVEF at 50%. Patient was initiated on Entresto and furosemide. Not in acute exacerbation. Chronic pain continue as needed tizanidine. Patient was having muscle spasms in the emergency department. He has not taken the tizanidine in about 6 weeks. DVT prophylaxis: Xarelto Code Status: Full code Plan of care discussed with patient. All questions answered. Patient verbalizes understanding is agreeable to plan of care. This dictation was performed using voice recognition software and may include grammatical and/or spelling errors. Problem List/Past Medical History Ongoing Acute on chronic systolic heart failure Aneurysm, thoracic aortic Aortic root dilation CORONARY ARTERY DISEASE, OCCLUSIVE CRF (CHRONIC RENAL FAILURE), STAGE 2 (MILD) ELEVATED GLUCOSE FISTULA, CORONARY ARTERY HFrEF (heart failure with reduced ejection fraction) HISTORY OF CHRONIC BACK PAIN Hyperlipidemia Left-sided weakness/bilateral frontoparietal foci of acute ischemia LOW HDL (UNDER 40) Lumbar radiculitis Newly diagnosed diabetes HgbA1C 6.9 OBESITY (BMI 30-39.9) PERSISTENT ATRIAL FIBRILLATION PNEUMOCOCCAL VACCINATION GIVEN Postoperative anemia Preop cardiovascular exam RECEIVED INFLUENZA VACCINATION AT HOSPITAL RIGHT BUNDLE-BRANCH BLOCK SCOLIOSIS/KYPHOSCOLIOSIS Spinal stenosis, lumbar Type II diabetes mellitus Historical Elevated glucose Procedure/Surgical History Cardioversion: 06/18/23 Lumbar radiculitis: 10/26/22 Echocardiogram: 09/29/22 Umbilical hernia, Laparoscopic converted to open primary umbilical hernia repair with small bowel resection: 08/16/22 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/2021 Cardioversion: 06/16/21 CT angiography of chest with contrast: 06/04/21 Echocardiogram: 11/21/20 Aortic valve replacement and aortoplasty: 11/19/20 Cardioversion: 01/26/19 Stress testing using pharmacologic-induced stress: 10/20/18 Cardiac catheterization: 10/18/18 Implantation of permanent spinal cord stimulator Atrial fibrillation Hernia repair Colonoscopy Medications Home Medications (11) Active acetaminophen-hydrocodone 325 mg-7.5 mg oral tablet 1 tab(s), PRN, Oral, q6h atorvastatin 40 mg oral tablet 40 mg = 1 tab(s), Oral, qDay bumetanide 1 mg oral tablet Entresto 24 mg-26 mg oral tablet 1 tab(s), Oral, BID Farxiga 10 mg oral tablet 10 mg = 1 tab(s), Oral, qDay Lasix 20 mg oral tablet 20 mg = 1 tab(s), Oral, BID metoprolol succinate 25 mg oral TABLET extended release 25 mg = 1 tab(s), Oral, qDay Potassium Chloride (Eqv-K-Tab) 10 mEq oral tablet, extended release 10 mEq = 1 tab(s), Oral, qDay Vitamin C 500 mg oral tablet 500 mg = 1 tab(s), Oral, qDay Vitamin D3 25 mcg (1000 intl units) oral capsule 25 mcg = 1 cap(s), Oral, Daily Xarelto 20 mg oral tablet 20 mg = 1 tab(s), Oral, qPM Allergies penicillin Skin breakdown Social History Alcohol Use: Past., 05/13/2022 Home/Environment Domestic Concerns: None. Living situation: Home/Independent., 06/16/2021 Nutrition/Health Caffeine intake amount: 2 cups per week., 05/13/2022 Type of diet: Regular. Appetite Excellent. Eating Difficulties None., 06/16/2021 Sexual Gender Identity: Identifies as male., 08/30/2023 Substance Abuse Use: Past. Type: Marijuana. Frequency: 1-2 times per week., 11/30/2022 Tobacco Nicotine Use: Never (less than 100 in lifetime)., 05/19/2019 Family History Cancer: Mother, Father, Sister and Brother. Health Status Family Member(s) Immunizations pneumococcal 13-valent conjugate vaccine: 0.5 unknown unit (06/03/17) pneumococcal 23-valent vaccine(Pneumovax: 0.5 unknown unit (02/08/19) SARS-CoV-2 (COVID-19) mRNA-1273 vaccine: 0.5 unknown unit (08/02/20) SARS-CoV-2 (COVID-19) mRNA-1273 vaccine: 0.5 unknown unit (07/05/20) tetanus/diphth/pertuss (Tdap) adult/adol: 0 unknown unit (01/30/16) Code Status Code Status - Ordered -- 09/16/23 15:47:00 EDT, Full Code, Constant Order Digitally Signed by FRANKLYN RESTREPO on 09/16/2023 05:22 PM [facility]06-06-2024 Neurology Consult note Date of Service 09/16/2023 Patient Telehealth Consent Consent: I discussed the risks and benefits of a telehealth visit and I obtained the patient s or legally authorized lifeline representatives s informed verbal consent to conduct this assessment using telehealth tools with visual and audio. All of the patient s or legally authorized lifeline representatives s questions regarding the telehealth interaction were addressed. I provided my name and disclosed to the patient or legally authorized lifeline representatives my licensure, certification, or registration. This consultation was remotely performed with the assistance of a trained virtual health liaison working at the originating site. The consultation used real time licensed and encrypted telehealth equipment which allowed a live video connection between my location and the patient s location. Aspects of the evaluation that could not be adequately evaluated by virtual assessment were shared with both the patient and the consulting provider. Location of Patient: [facility] Emergency Department Physician Alcoholism Worker: [ enter immigration case manager stroke Providers name here ] Location and Name of Referring Provider:Dr Titi [ enter Doctors Name here ] Chief Complaint dizziness History of Present Illness he woke up at 4 this morning which is his normal got up to do his normal routine. Had no symptoms other than the fact he discounted felt a little tired which is not unusual for him so he laid back down at 8 AM. At around 9 he woke up and felt disoriented he was not sure where he was that he felt some dizziness and nauseous did not have any headache or chest pain at that point. He was so unsteadythat he actually crawled to the bathroom throughout felt a little better in terms of the nausea butthen crawled back to bed and stayed there for an hour until about 9 or 930 when he was woke up and was able to actually walk out into the living room. He at that point noticed chest discomfort morbid pressure not a ripping or tearing type of discomfort no back discomfort Little clammy with that so he called a friend after waiting a while and then presented here. He presents here almost 5 hours after his last known normal which would have been 8:00 when he went to sleep. He does not have any chest discomfort now. He felt that he was laying in bed and that his vision was blurry that he could not see things well but now he is able to read off the charts on the wall without any difficulty. He feels that the dizziness is improved though he still has a little bit. Does not worsen with head movement. He has no ringing in the ears. To the resident he had a little bit of right gaze nystagmus. Hedenies any chest heaviness now. At no point did he have any back discomfort no ripping or tearing type of discomfort. Patient has a history of A-fib and is on Xarelto currently. Physical Exam Vitals and Measurements T: 36.4 C (Oral) HR: 80 RR: 18 BP: 130/81 SpO2: 96% HT: 188 cm WT: 104.5 kg Weight Dosing Weight: 104.5 kg (09/16/23) CONSIDERING THE INHERENT LIMITATIONS OF TELE MEDICINE, THE NEUROLOGICAL EXAM IS FOLLOWS. Mental Status: Oriented to time, person and place. Follows simple and complex commands. Cranial Nerves: II: Pupils equal, round, reactive to light. III, IV, : Extraocular movements are intact. No ptosis is appreciated. VII: symmetric facial muscles. VIII: Normal symmetric hearing. IX, X: Normal speech Motor: all extremities spontaneously against gravity. NIH Stroke Scale NIH Stroke Score: 0 (09/16/23 13:12:00) Level of Consciousness NIH Stroke Scale: Alert (09/16/23 13:12:00) Response Month/Age NIH Stroke Scale: Answers both correctly (09/16/23 13:12:00) Open/Close Eyes NIH Stroke Scale: Obeys both correctly (09/16/23 13:12:00) Best Gaze NIH Stroke Scale: Normal (09/16/23 13:12:00) Visual Field Testing NIH Stroke Scale: No visual field loss (09/16/23 13:12:00) Facial Paresis NIH Stroke Scale: Normal symmetrical movement (09/16/23 13:12:00) Motor Function Left Arm NIH Stroke Scale: Normal (09/16/23 13:12:00) Motor Function Rt Arm NIH Stroke Scale: Normal (09/16/23 13:12:00) Motor Function Left Leg NIH Stroke Scale: Normal (09/16/23 13:12:00) Motor Function Rt Leg NIH Stroke Scale: Normal (09/16/23 13:12:00) Limb Ataxia NIH Stroke Scale: No ataxia (09/16/23 13:12:00) Sensory NIH Stroke Scale: Normal (09/16/23 13:12:00) Best Language NIH Stroke Scale: No aphasia (09/16/23 13:12:00) Dysarthria NIH Stroke Scale: Normal articulation (09/16/23 13:12:00) Extinction/Inattention NIH Stroke Scale: Normal (09/16/23 13:12:00) Thrombolytic Contraindications Resolved symptoms already on Xarelto Lab Results 09/15 13:33 WBC: 4.9 Hgb: 15.5 Hct: 46.5 Platelet: 179 Neutrophil %: 60.6 Glucose Level: 112 H Sodium Level: 141 Potassium Level: 4.9 BUN: 29 H Creatinine Lvl (s): 1.67 H Imaging Results and Diagnostics CT head without contrast negative for any pathology EKG EC09/16/23: Atrial fibrillation Right bundle branch block Baseline wander in lead(s) aVF Electronic Signature: MD MOISES, ALYSSA NEWTON 09/16/2023 13:51:25 High Level Medical Decision-making dizziness versus TIA Recommendations patient getting CTA angio and neck, if negative for any acute pathology rest of the workup can be pursued as outpatient Continue with Xarelto and statin If he gets admitted, it would be reasonable to pursue an MRI brain without contrast while he is inpatient Management of other medical conditions acute on chronic nature it as per primary team Discussed with Problem List/Past Medical History Ongoing Acute on chronic systolic heart failure Aneurysm, thoracic aortic Aortic root dilation CORONARY ARTERY DISEASE, OCCLUSIVE CRF (CHRONIC RENAL FAILURE), STAGE 2 (MILD) ELEVATED GLUCOSE FISTULA, CORONARY ARTERY HFrEF (heart failure with reduced ejection fraction) HISTORY OF CHRONIC BACK PAIN Hyperlipidemia Left-sided weakness/bilateral frontoparietal foci of acute ischemia LOW HDL (UNDER 40) Lumbar radiculitis Newly diagnosed diabetes HgbA1C 6.9 OBESITY (BMI 30-39.9) PERSISTENT ATRIAL FIBRILLATION PNEUMOCOCCAL VACCINATION GIVEN Postoperative anemia Preop cardiovascular exam RECEIVED INFLUENZA VACCINATION AT HOSPITAL RIGHT BUNDLE-BRANCH BLOCK SCOLIOSIS/KYPHOSCOLIOSIS Spinal stenosis, lumbar Type II diabetes mellitus Historical Elevated glucose Procedure/Surgical History Cardioversion: 06/18/23 Lumbar radiculitis: 10/26/22 Echocardiogram: 09/29/22 Umbilical hernia, Laparoscopic converted to open primary umbilical hernia repair with small bowel resection: 08/16/22 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/2021 Cardioversion: 06/16/21 CT angiography of chest with contrast: 06/04/21 Echocardiogram: 11/21/20 Aortic valve replacement and aortoplasty: 11/19/20 Cardioversion: 01/26/19 Stress testing using pharmacologic-induced stress: 10/20/18 Cardiac catheterization: 10/18/18 Implantation of permanent spinal cord stimulator Atrial fibrillation Hernia repair Colonoscopy Medications Inpatient Betadine 10% topical solution Bicitra, 30 mL, Oral, PREOP pharm Bolus LR 1000 mL, 1000 mL, IV Bolus, PREOP pharm Cyklokapron IVPB Decadron, 10 mg= 1 mL, IV Push, AsDirected Kefzol Naropin 25 mg + Toradol 15 mg + EPINEPHrine 1 mg/mL injectable solution 0.3 mg + morphine 2.5 mg Naropin 25 mg + Toradol 15 mg + EPINEPHrine 1 mg/mL injectable solution 0.3 mg + morphine 2.5 mg NO METFORMIN (Glucophage) X 48hrs-patient has received contrast, 1 EA, Miscellaneous, Unscheduled OxyCONTIN, 10 mg= 1 tab(s), Oral, PREOP pharm Pepcid IV, 20 mg= 2 mL, IV Push, PREOP pharm vancomycin Home acetaminophen-hydrocodone 325 mg-7.5 mg oral tablet, 1 tab(s), Oral, q6h, PRN atorvastatin 40 mg oral tablet, 40 mg= 1 tab(s), Oral, qDay bumetanide 1 mg oral tablet Entresto 24 mg-26 mg oral tablet, 1 tab(s), Oral, BID, 3 refills Farxiga 10 mg oral tablet, 10 mg= 1 tab(s), Oral, qDay Lasix 20 mg oral tablet, 20 mg= 1 tab(s), Oral, BID, 3 refills metoprolol succinate 25 mg oral TABLET extended release, 25 mg= 1 tab(s), Oral, qDay, 3 refills Potassium Chloride (Eqv-K-Tab) 10 mEq oral tablet, extended release, 10 mEq= 1 tab(s), Oral, qDay, 3 refills Vitamin C 500 mg oral tablet, 500 mg= 1 tab(s), Oral, qDay Vitamin D3 25 mcg (1000 intl units) oral capsule, 25 mcg= 1 cap(s), Oral, Daily Xarelto 20 mg oral tablet, 20 mg= 1 tab(s), Oral, qPM, 3 refills Allergies penicillin Skin breakdown Social History Alcohol Use: Past., 05/13/2022 Home/Environment Domestic Concerns: None. Living situation: Home/Independent., 06/16/2021 Nutrition/Health Caffeine intake amount: 2 cups per week., 05/13/2022 Type of diet: Regular. Appetite Excellent. Eating Difficulties None., 06/16/2021 Sexual Gender Identity: Identifies as male., 08/30/2023 Substance Abuse Use: Past. Type: Marijuana. Frequency: 1-2 times per week., 11/30/2022 Tobacco Nicotine Use: Never (less than 100 in lifetime)., 05/19/2019 Family History Cancer: Mother, Father, Sister and Brother. Health Status Family Member(s) Digitally Signed by JG MANCILLA MD on 09/16/2023 03:10 PM [facility]06-06-2024 Note ORIGINAL EXAMINATION: TWO XRAY VIEWS OF THE CHEST 09/16/2023 2:10 pm COMPARISON: Enteric tube placement dated 08/19/2022. Prior chest x-ray dated 12/26/2020. HISTORY: ORDERING SYSTEM PROVIDED HISTORY: Reason for Exam: Chest Pain/SOB FINDINGS: The cardiomediastinal silhouette is stable in appearance with sternotomy changes noted. Spinal stimulator leads are seen overlying midline. There is mild central vascular congestion. Otherwise no consolidation is seen. No sizable pleural effusion or pneumothorax. IMPRESSION: Mild central vascular congestion. Interpreted by: Claus Ni MD Preliminary Report By: Claus Ni MD Electronically signed By Claus Ni MD Dictated Date: 09/16/2023 2:46:08 PM Prelim Date: 09/16/2023 2:47:12 PM Sign Date: 09/16/2023 2:47:12 PM Ordering Provider: [facility]06-06-2024 Evaluation + Plan noteExtracted from: Title:History and Physical Author:FRANKLYN RESTREPO Date:09/16/23 1. Dizziness 2. AF (atrial fibrillation) 3. Heart failure with mildly reduced ejection fraction 4. Chronic pain Dizziness patient had dizziness, vision changes, chest pressure. Troponins within normal limits. EKG shows A-fib which is chronic. CT, CTA head and neck unremarkable. Obtain MRI of the brain, echocardiogram with bubble study, consult PT and OT. Would appreciate a vestibular evaluation as well. Atrial fibrillation continue metoprolol and Xarelto. Rate controlled. HFmrEF-most recent echocardiogram shows mildly reduced LVEF at 50%. Patient was initiated on Entresto and furosemide. Not in acute exacerbation. Chronic pain continue as needed tizanidine. Patient was having muscle spasms in the emergency department. He has not taken the tizanidine in about 6 weeks. DVT prophylaxis: Xarelto Code Status: Full code Plan of care discussed with patient. All questions answered. Patient verbalizes understanding is agreeable to plan of care. This dictation was performed using voice recognition software and may include grammatical and/or spelling errors. Future Appointments Appointment Date:10/07/2023 01:30:00 PM Scheduled Provider:ARLEY SERNA Location:[facility] Appointment Type:CV OV Appointment Date:10/15/2023 08:00:00 AM Scheduled Provider:NATALIA SARGENT MD Location:[facility] Appointment Type:PM OV Appointment Date:10/22/2023 10:00:00 AM Scheduled Provider: Location:[facility] Appointment Type:[facility] Appointment Date:11/17/2023 09:00:00 AM Scheduled Provider:TYLER ROJAS Location:[facility] Appointment Type:PM OV Appointment Date:11/29/2023 01:00:00 PM Scheduled Provider: Location:[facility] Lab Appointment Type:EP Ablation PF-Ensite Future Scheduled Tests Laboratory* Basic Metabolic Panel 05/08/23 * Basic Metabolic Panel 10/29/23 * Thyroid Stimulating Hormone 09/07/23 * Thyroid Stimulating Hormone 01/16/23 * Thyroid Stimulating Hormone 09/19/22 * Free T4 09/07/23 * Complete Blood Count 05/08/23 * Complete Blood Count 05/28/23 * Complete Blood Count 01/16/23 * Complete Blood Count 09/19/22 * Complete Blood Count 10/29/23 * Lipid Profile 01/16/23 * Total T3 09/07/23 * Complete Metabolic Panel 01/16/23 * Complete Metabolic Panel 09/19/22 * N-Terminal proBNP 05/08/23 * N-Terminal proBNP 05/28/23 * N-Terminal proBNP 01/16/23 * N-Terminal proBNP 09/19/22 * N-Terminal proBNP 10/29/23 Radiology* CT Angiography Chest w/ Contrast 06/19/23 * XR Chest 2 Views (PA & Lateral) 02/05/23 * XR Chest 2 Views (PA & Lateral) 10/16/22 [facility] 06-06-2024 Note ORIGINAL HISTORY: Stroke COMPARISON: 18 November 2020 TECHNIQUE: CT angiography of the head following uncomplicated administration of intravenous contrast, with 3D post-acquisition processing and with results displayed in source images, sagittal reconstructions through the carotid siphons, maximum intensity projections and volume rendered images. This exam was performed according to our departmental dose optimization program, and includes the following measures where applicable: automated exposure control, adjustment of the mAs and/or kVp according to patient size and/or exam, and an iterative reconstruction algorithm. FINDINGS: The study is of poor technical quality, limited by contrast timing and by low CT dose with poor signal to noise ratio. There are atherosclerotic changes to the cavernous internal carotid arteries, with stenosis on either side. The more distal branches of the internal carotid arteries are patent without aneurysm or occlusion. The major vessels of the posterior circulation are grossly unremarkable. IMPRESSION: Limited examination. No large vessel occlusion is seen. Interpreted by: Abdi Gilmore MD Preliminary Report By: Abdi Gilmore MD Electronically signed By Abdi Gilmore MD Dictated Date: 09/16/2023 3:13:12 PM Prelim Date: 09/16/2023 3:15:44 PM Sign Date: 09/16/2023 3:15:44 PM Ordering Provider: [facility]06-06-2024 Note ORIGINAL HISTORY: Stroke COMPARISON: 18 November 2020 TECHNIQUE: CT angiogram of the neck following uncomplicated administration of intravenous contrast, with 3-D post acquisition processing and with results displayed in source images, rotational reconstructions centered on the carotid bifurcations and in maximum intensity projection. Percent stenosis is calculated using NASCET criteria. This exam was performed according to our departmental dose optimization program, and includes the following measures where applicable: automated exposure control, adjustment of the mAs and/or kVp according to patient size and/or exam, and an iterative reconstruction algorithm. FINDINGS: There are mild atherosclerotic changes to the distal common and proximal internal carotid arteries. There is no hemodynamically significant stenosis of either internal carotid artery. The vertebral arteries are roughly symmetric caliber. Both vertebral arteries are visualized from origin through skull base. IMPRESSION: No hemodynamically significant stenosis of either internal carotid artery. Interpreted by: Abdi Gilmore MD Preliminary Report By: Abdi Gilmore MD Electronically signed By Abdi Gilmore MD Dictated Date: 09/16/2023 2:37:31 PM Prelim Date: 09/16/2023 3:10:49 PM Sign Date: 09/16/2023 3:10:49 PM Ordering Provider: [facility]06-06-2024 Note ORIGINAL HISTORY: Change in mental status COMPARISON: 18 November 2020 TECHNIQUE: Routine noncontrast head CT, with sagittal and coronal reconstructions. This exam was performed according to our departmental dose optimization program, and includes the following measures where applicable: automated exposure control, adjustment of the mAs and/or kVp according to patient size and/or exam, and an iterative reconstruction algorithm. FINDINGS: The study is degraded by motion. The ventricles and sulci are mildly enlarged. There are no abnormal intra or extra-axial fluid collections. There is mild irregular decreased attenuation in the cerebral white matter. Salcedo-white matter differentiation is maintained. The calvaria and the bones of the base of the skull are intact. IMPRESSION: No significant interval change. Interpreted by: Abdi Gilmore MD Preliminary Report By: Abdi Gilmore MD Electronically signed By Abdi Gilmore MD Dictated Date: 09/16/2023 1:56:17 PM Prelim Date: 09/16/2023 1:59:27 PM Sign Date: 09/16/2023 1:59:27 PM [facility]ing [facility] Atrial fibrillation Right bundle branch block Baseline wander in lead(s) aVF Electronic Signature: MD MOISES, ALYSSA NEWTON 09/16/2023 13:51:25[facility] 05-24-2024 Note* Exam Date Time Procedure Performing Provider Status 09/03/23 9:42 AM Echocardiogram, Adult - CV Auth (Verified) [facility] 05-20-2024 Hospital Discharge instructions Patient Education 08/30/2023 10:12:21 Cardiac SD - Discharge Instructions for Cancelled Procedures 11/2021(CUSTOM) DISCHARGE INSTRUCTIONS FOR CANCELLED PROCEDURES DIET Resume your regular diet that you had before your procedure unless otherwise instructed. ACTIVITY Resume your previous activities as tolerated unless otherwise instructed. IV DRESSING/WOUND CARE If you have had an IV inserted, you can remove the gauze dressing in 1 hour. CALL YOUR DOCTOR IF: You develop any new redness, swelling, or drainage around your IV insertion site. You have a temperature of 101 degrees or higher. PAIN Follow your doctors' instructions for pain management. You can take your usual ocue-hjp-ibxczzt pain medication unless otherwise directed. HAND WASHING Always wash your hands before and after touching the IV insertion/dressing site. Frequent hand washing is the best way to prevent the spread of infection. FOLLOW-UP Keep your follow-up appointment. If an appointment has not been made for you, call your doctor's office to schedule. If you have any concerns before your appointment, call your doctor's office. Follow Up Care 08/16/2023 16:13:41 With:FABRICIO VIGIL MD Address: [address] [facility] [address] [place] [address]- When:10/11/2023 10:00:00 With:SAM MODI MD Address: [address] [facility] [address] [place] [address]- When:10/11/2023 11:45:00 [facility] 05-20-2024 Summary of episode note Discharge Instructions Thank you for allowing [facility] to assist you with your healthcare needs. The following is importantdischarge information regarding your hospital visit. Your Care Team HODA GRAYSON MD What to do next Instructions From Your Doctor - Please note that your Xarelto has been increased to 20mg once daily moving forward. A new prescription has been sent to the [facility] (located in the back of the [employer] shop). You are welcome to transfer the remaining refills to your pharmacy of choice if desired. - The CV office will be reaching out to you in the near future to discuss next steps. Scheduled Follow-Up Appointments Appointment Type When With Where Contact Information StatusEcho - Echocardiogram Adult 09/03/2023 09:00 AM EDT [facility] [phone] Confirmed [facility] 10/11/2023 10:00 AM EDT [facility] Confirmed CV OV 10/11/2023 11:45 AM EDT [facility] Confirmed PM OV 11/17/2023 09:00 AM EDT TYLER ROJAS APRN-PA[employer] MACHINE [facility] PM [address] [place] [address]- [phone] Confirmed Follow Up Appointments Follow Up with SAM MODI MD When: When:10/11/2023 11:45 AM EDT Where:[address] [facility] [address] [place] [address]- Follow Up with FABRICIO VIGIL MD When: When:10/11/2023 10:00 AM EDT Where:[address] [facility] [address] [facility] [place] [address]- Allergies penicillin Skin breakdown Medications Please ask your primary doctor or pharmacist before taking any other medication not listed, including over the counter drugs, herbal medications, vitamins and or supplements as they may interact withyour home medications. What How Much When Why Instructions Last Dose Changed rivaroxaban (Xarelto 20 mg oral tablet) 1 tab(s) by mouth Once a day (in the evening) Pickup at [facility] Unchanged amiodarone (amiodarone 200 mg oral tablet) 2 tab(s) by mouth Two (2) times a day Loading dose 400 mg BID for 14 days then 200 mg BID Unchanged ascorbic acid (Vitamin C 500 mg oral tablet) 1 tab(s) by mouth Once a day Unchanged cholecalciferol (Vitamin D3 25 mcg (1000 intl units) oral capsule) 1 cap by mouth Every day Unchanged furosemide (Lasix 20 mg oral tablet) 1 tab(s) by mouth Two (2) times a day AM and Lunch Unchanged metoprolol (metoprolol succinate 25 mg oral TABLET extended release) 1 tab(s) by mouth Once a day Unchanged oxyCODONE (oxyCODONE 5 mg oral tablet ( IMMEDIATE release )) 1 tab(s) by mouth Every 6 hours Lumbar radiculitis Spinal stenosis, lumbar Duration: 30 Days Unchanged potassium chloride (Potassium Chloride (Eqv-K-Tab) 10 mEq oral tablet, extended release) 1 tab(s) by mouth Once a day Unchanged sacubitril-valsartan (Entresto 24 mg-26 mg oral tablet) 1 tab(s) by mouth Two (2) times a day Pharmacy Information [facility]: [address] [place], [place] [id number] [phone] Please take this list to your next doctor s visit. Bring all medications you take, including over the counter medications, herbals and other supplements with you to your doctor s visit. Patients and families are reminded to discard old lists and to update any records with all medication providers or retail pharmacies. Education Materials DISCHARGE INSTRUCTIONS FOR CANCELLED PROCEDURES DIET Resume your regular diet that you had before your procedure unless otherwise instructed. ACTIVITY Resume your previous activities as tolerated unless otherwise instructed. IV DRESSING/WOUND CARE If you have had an IV inserted, you can remove the gauze dressing in 1 hour. CALL YOUR DOCTOR IF: You develop any new redness, swelling, or drainage around your IV insertion site. You have a temperature of 101 degrees or higher. PAIN Follow your doctors' instructions for pain management. You can take your usual frcj-ddb-kozomfw pain medication unless otherwise directed. HAND WASHING Always wash your hands before and after touching the IV insertion/dressing site. Frequent hand washing is the best way to prevent the spread of infection. FOLLOW-UP Keep your follow-up appointment. If an appointment has not been made for you, call your doctor's office to schedule. If you have any concerns before your appointment, call your doctor's office. Additional Information VACCINATE! IT SAVES LIVES! Members of the community who have not yet received the COVID-19 vaccine and would like to receive it can visit one of [facility] vaccine clinics. There are many vaccine clinic locations within the [facility]. For locations and available times, please visit [email or web address] It is important to note that some COVID mobile vaccine clinics are held outdoors and may be canceled in rainy or stormy conditions. To learn more about pediatric vaccinations (ages 5-11), we invite you to visit the [facility] webpage. [email or web address]/[email or web address] learn more about the COVID-19 vaccine, we invite you to visit the CDC website for a list of frequently asked questions.https://www.cdc.gov/coronavirus/2019-ncov/vaccines/faq.html [facility] Patient Portal Access Instructions: Stay connected with your healthcare team and access your personal medical information anytime with the [facility] Patient Portal. Please follow the directions below to create your [facility] account: 1.Access the email account you provided upon registration to the hospital/physician office.2.Look for an invitation email from [facility].3.Open the email and access the invitation link: AcceptInvitation to [facility].4.Fill in the required crockett to create your account. To access your account, visit [email or web address]. Click the blue button labeled Access Patient Portal and then log in with the username and password that you created in the steps above. You will be able to view your test results, lab results, a summary of your visits, upcoming appointments and more. There is also a convenient messaging option where you can send secure messages to your p rovider. In addition, you will have the ability to download any documents or summaries to your computer and/or send the information securely to a physician. Remember that your healthcare information is confidential, so carefully consider who you will allowto register on the [facility] Patient Portal for access to your information. You can also access the [facility] Patient Portal on the [facility] karie. Simply click on Patient Portal and then log into your account. If you would like to receive a full copy of your medical records, please contact the [facility] Medical Records Department by calling [phone], Wednesday through Wednesday between 8 a.m. and 4:30 p.m. HOW TO SAFELY DISPOSE OF PRESCRIPTION MEDICATIONS Please use one of the following methods to safely dispose of your unused medications. 1.Use a drug disposal kit: the drug disposal pouch allows you to safely discard your old and unuseddrugs. Ask your nurse to give you one when you are discharged.2.Visit a local take-back location: Many local pharmacies and police departments have programs that collect old and unwanted prescriptiondrugs. Call your local pharmacy or go to http://Mapflow.Meddik/5D7Mq2t to find one close to you.3.Make use of household items: Use cat litter or old coffee grounds to dispose medications if other options arenot available. Mix your drugs with these household products, seal them in an airtight container andthrow it into the garbage. Call [facility]: [phone] to be sure your drugs can be disposed of in this way. Some medicines may require a different approach.4.Never flush your medications down the toilet. IF YOU HAVE BEEN PRESCRIBED AN OPIOID FOR PAIN If you have been prescribed an opioid (such as hydrocodone, oxycodone or morphine), it is critical to understand the possible side effects and risks of opioid pain medications. Even when taken as directed, opioids can have several side effects including: Tolerance, meaning you might need to take more of a medication for the same pain relief. Nausea, vomiting and/or constipation. Sleepiness, dizziness, dry mouth, confusion, depression or itching. Physical dependence, meaning you have withdrawal symptoms when a medication is stopped, can develop within a few days. KNOW YOUR RESPONSIBILITIES It is important to know exactly how much and how often to take the opioid pain medications you are prescribed. Never take opioids in higher amounts or more often than prescribed. Do not combine opioids with alcohol or other drugs that cause drowsiness, such as benzodiazepines, also known as benzos, including diazepam and alprazolam, muscle relaxants or sleep aids. Never sell or share prescription opioids. This is illegal. Store opioids in a secure place and out of reach of others (including children, family, friends and visitors). The last page of this document has been signed and retained as a CHART COPY. Signatures Patient Education Materials Cardiac SD - Discharge Instructions for Cancelled Procedures 11/2021(CUSTOM) Medication Leaflets My discharge plan and instructions have been reviewed and explained to me and I,JACKY ELLIS understand my current condition and have read and understand these discharge instructions. I have received a written copy of the plan/instructions. If I have questions, I am aware that I should contact my doctor. 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 Modi GC: Dr. Kowalski Discharge Diagnosis Atrial fibrillation Hospital Course This is a 73-year-old male who presented today for direct current cardioversion secondary to atrialfibrillation. Patient was noted to be on subtherapeutic Xarelto (15mg once daily), therefore his DCCV was cancelled. A new prescription was sent for Xarelto 20mg once daily prior to discharge. Upon further discussion between the patient and Dr. Modi, it was decided that the patient will defer currently scheduled follow-up OV in October and instead proceed with arranging ablative therapies assoon as the schedule permits. All questions/concerns were addressed to his satisfaction prior to his departure. Allergies penicillin Skin breakdown Procedures DCCV (cancelled) Consults No qualifying data available. Objective Vitals and Measurements T: 36.5 C (Oral) HR: 86 (Monitored) RR: 16 BP: 121/77 SpO2: 98% HT: 188.0 cm WT: 108.0 kg BMI: 30.56 Weight Dosing Weight: 108 kg (08/30/23) Code Status No qualifying data available. Admission Date August 30, 2023 Discharge Date August 30, 2023 Patient Instructions - Please note that your Xarelto has been increased to 20mg once daily moving forward. A new prescription has been sent to the [facility] (located in the back of the [employer] shop). You are welcome to transfer the remaining refills to your pharmacy of choice if desired. - The [facility] office will be reaching out to you in the near future to discuss next steps. Medications Changed rivaroxaban (Xarelto 20 mg oral tablet)1 tab(s) by mouth once a day (in the evening). Refills: 3. Unchanged amiodarone (amiodarone 200 mg oral tablet)2 tab(s) by mouth two (2) times a day. Loading dose 400 mg BID for 14 days then 200 mg BID. Refills: 1. ascorbic acid (Vitamin C 500 mg oral tablet)1 tab(s) by mouth once a day. cholecalciferol (Vitamin D3 25 mcg (1000 intl units) oral capsule)1 cap by mouth every day. furosemide (Lasix 20 mg oral tablet)1 tab(s) by mouth two (2) times a day. AM and Lunch. Refills: 3. metoprolol (metoprolol succinate 25 mg oral TABLET extended release)1 tab(s) by mouth once a day. Refills: 3. oxyCODONE (oxyCODONE 5 mg oral tablet ( IMMEDIATE release ))1 tab(s) by mouth every 6 hours for 30 Days. Refills: 0. potassium chloride (Potassium Chloride (Eqv-K-Tab) 10 mEq oral tablet, extended release)1 tab(s) bymouth once a day. Refills: 3. sacubitril-valsartan (Entresto 24 mg-26 mg oral tablet)1 tab(s) by mouth two (2) times a day. Refills: 3. Follow Up Follow Up with FABRICIO VIGIL MD When: When:10/11/2023 10:00 AM EDT Where:[address] [facility] [place] [address]- Follow Up Appointments No qualifying data available. Follow Up Labs/Studies Discharge Labs No Follow-up Labs Discharge Studies No Follow-up Studies Discharge Diet No qualifying data available. Discharge Activity No qualifying data available. Condition on Discharge Stable Readmission Risk/Palliative Score No qualifying data available. Discharge Disposition Home Information Provided To Patient Digitally Signed by ARLEY SERNA APRN-PAINT MIXER MACHINE on 08/30/2023 10:09 AM Digitally Signed by SAM MODI MD [facility] [id number] Anesthesiology Consult note Patient: JACKY ELLIS Age: 73 years Sex: Male : 1950 Associated Diagnoses: None Author: MARIXA WILBURN DO Preoperative Information Greater than 6 hours Anesthesia history Patient's history: negative. Family's history: negative. Review of Systems Ear/Nose/Mouth/Throat: Negative except as documented in history of present illness. Respiratory: Negative except as documented in history of present illness. Cardiovascular: Negative except as documented in history of present illness, AF for DCC, previous open heart. Gastrointestinal: Negative except as documented in history of present illness. Genitourinary: Negative except as documented in history of present illness. Endocrine: Negative except as documented in history of present illness. Musculoskeletal: Negative except as documented in history of present illness. Integumentary: Negative except as documented in history of present illness. Neurologic: Negative except as documented in history of present illness. Health Status Allergies: Allergic Reactions (Selected) Severity Not Documented Penicillin- Skin breakdown., Allergies (1) ActiveReaction penicillinSkin breakdown Current medications: (Selected) Inpatient Medications Ordered Betadine 10% topical solution: 17.5 mL, mL/hr, Topical (INT), PREOP pharm Bicitra: 30 mL, Oral, PREOP pharm Bolus LR 1000 mL: 1,000 mL, IV Bolus, PREOP pharm Cyklokapron IVPB: 2,000 mg, 20 mL, mL/hr, Topical (INT), PREOP pharm Decadron: 10 mg, 1 mL, IV Push, AsDirected Kefzol: 3 gram(s), 200 mL/hr, IV Piggyback, PREOP pharm Naropin 25 mg + Toradol 15 mg + EPINEPHrine 1 mg/mL injectable solution 0.3 mg + morphine 2.5 mg...: 25 mg, 5 mL, mL/hr, Other, PREOP pharm Naropin 25 mg + Toradol 15 mg + EPINEPHrine 1 mg/mL injectable solution 0.3 mg + morphine 2.5 mg...: 25 mg, 5 mL, mL/hr, Other, PREOP pharm OxyCONTIN: 10 mg, 1 tab(s), Oral, PREOP pharm Pepcid IV: 20 mg, 2 mL, IV Push, PREOP pharm Sodium Chloride 0.9% intravenous solution 1,000 mL: 20 mL/hr, Intravenous vancomycin: 1,750 mg, 35 mL, 306 mL/hr, IV Piggyback, PREOP pharm Prescriptions Prescribed Entresto 24 mg-26 mg oral tablet: 1 tab(s), Oral, BID, 180 tab(s), 3 Refill(s) Lasix 20 mg oral tablet: 20 mg, 1 tab(s), Oral, BID, AM and Lunch, 180 tab(s), 3 Refill(s) Potassium Chloride (Eqv-K-Tab) 10 mEq oral tablet, extended release: 10 mEq, 1 tab(s), Oral, qDay, 90 tab(s), 3 Refill(s) Xarelto 15 mg oral tablet: 15 mg, 1 tab(s), Oral, qHS, with food with evening meal, 90 tab(s), 3 Refill(s) amiodarone 200 mg oral tablet: 400 mg, 2 tab(s), Oral, BID, Loading dose 400 mg BID for 14 days then 200 mg BID, 120 tab(s), 1 Refill(s) metoprolol succinate 25 mg oral TABLET extended release: 25 mg, 1 tab(s), Oral, qDay, 90 tab(s), 3 Refill(s) oxyCODONE 5 mg oral tablet ( IMMEDIATE release ): 5 mg, 1 tab(s), Oral, q6hr, for 30 day(s), 120 tab(s), 0 Refill(s) Documented Medications Documented Vitamin C 500 mg oral tablet: 500 mg, 1 tab(s), Oral, qDay Vitamin D3 25 mcg (1000 intl units) oral capsule: 25 mcg, 1 cap(s), Oral, Daily, 0 Refill(s), Medications (1) Active Scheduled: (0) Continuous: (1) NS (0.9% nacl) 1,000 mL 1,000 mL, Intravenous, 20 mL/hr PRN: (0) Problem list: Medical Acute on chronic systolic heart failure / SNOMED CT 4684793039 / Confirmed Postoperative anemia / SNOMED CT 129963872 / Confirmed Aneurysm, thoracic aortic / SNOMED CT 2272221739 / Confirmed Aortic root dilation / SNOMED CT 873954862 / Confirmed OBESITY (BMI 30-39.9) / SNOMED CT 551590646 / Confirmed LOW HDL (UNDER 40) / SNOMED CT 668941782 / Confirmed CRF (CHRONIC RENAL FAILURE), STAGE 2 (MILD) / SNOMED CT 4934991807 / Confirmed CORONARY ARTERY DISEASE, OCCLUSIVE / SNOMED CT 67296063 / Confirmed FISTULA, CORONARY ARTERY / SNOMED CT 5153372793 / Confirmed Encounter for monitoring cardiotoxic drug therapy / SNOMED CT 711940620 / Confirmed Fatigue / SNOMED CT 834350787 / Confirmed HISTORY OF CHRONIC BACK PAIN / SNOMED CT 780601765 / Confirmed RECEIVED INFLUENZA VACCINATION AT HOSPITAL / SNOMED CT 004563121 / Confirmed HFrEF (heart failure with reduced ejection fraction) / SNOMED CT 9270050344 / Confirmed Hyperlipidemia / SNOMED CT 01378109 / Confirmed ELEVATED GLUCOSE / SNOMED CT 852776234 / Confirmed SCOLIOSIS/KYPHOSCOLIOSIS / SNOMED CT 777272543 / Confirmed Left-sided weakness/bilateral frontoparietal foci of acute ischemia / SNOMED CT 133288448 / Confirmed Lumbar radiculitis / SNOMED CT 7696477069 / Confirmed Newly diagnosed diabetes HgbA1C 6.9 / SNOMED CT 7799788282 / Confirmed BMI 28.0-28.9,adult / SNOMED CT 0869114815 / Confirmed Preop cardiovascular exam / SNOMED CT 026424928 / Confirmed PERSISTENT ATRIAL FIBRILLATION / SNOMED CT 3658959551 / Confirmed PNEUMOCOCCAL VACCINATION GIVEN / SNOMED CT 789768719 / Confirmed RIGHT BUNDLE-BRANCH BLOCK / SNOMED CT 75057767 / Confirmed Spinal stenosis, lumbar / SNOMED CT 20902001 / Confirmed Type II diabetes mellitus / SNOMED CT 503179114 / Confirmed, Active Problems (39) Acute chest pain Acute on chronic systolic heart failure AF (atrial fibrillation) Aneurysm, thoracic aortic Aortic root dilation Arthritis BMI 28.0-28.9,adult CHF (congestive heart failure) CORONARY ARTERY DISEASE, OCCLUSIVE CRF (CHRONIC RENAL FAILURE), STAGE 2 (MILD) ELEVATED GLUCOSE Encounter for monitoring cardiotoxic drug therapy Fatigue FISTULA, CORONARY ARTERY Glasses HFrEF (heart failure with reduced ejection fraction) Hiatal hernia HISTORY OF CHRONIC BACK PAIN HTN (hypertension) Hyperlipidemia Left-sided weakness/bilateral frontoparietal foci of acute ischemia LOW HDL (UNDER 40) Lumbar radiculitis Newly diagnosed diabetes HgbA1C 6.9 OBESITY (BMI 30-39.9) Osteoarthritis Pain management PERSISTENT ATRIAL FIBRILLATION PNEUMOCOCCAL VACCINATION GIVEN Postoperative anemia Preop cardiovascular exam RECEIVED INFLUENZA VACCINATION AT HOSPITAL RIGHT BUNDLE-BRANCH BLOCK Scoliosis SCOLIOSIS/KYPHOSCOLIOSIS Spinal stenosis Spinal stenosis, lumbar Type II diabetes mellitus Wrist fracture Histories Past Medical History: Resolved Elevated glucose ([id number]): Resolved. Family History: Cancer Mother Brother Sister Father Procedure history: Cardioversion ([id number]) on 06/18/2023 at 72 Years. Lumbar radiculitis ([id number]) on 10/26/2022 at 72 Years. Echocardiogram ([id number]) on 09/29/2022 at 72 Years. Comments: 10/15/2022 14:01 Carlee Mcneil MA (ABR-OE) 1. Left ventricle: The cavity size is moderately increased. Wall thickness is moderately increased.Systolic function is moderately reduced. The estimated ejection fraction is 35-40%. Severe hypokinesis of the inferolateral and inferior myocardium. Diastolic dysfunction present but unable to assess severity. 2. Aortic valve: Thickening, consistent with sclerosis. There is mild, 1+ regurgitation. 3. Mitral valve: The annulus is moderately to severely calcified. There is moderate, 2+ regurgitation. 4. Left atrium: The atrium is moderately dilated. 5. Right ventricle: Systolic pressure is moderately increased. The RV systolic pressure by Doppler is 64 mm Hg. 6. Tricuspid valve: There is moderate, 2+ regurgitation. 7. Right atrium: The atrium is moderately dilated. The estimated right atrial pressure is 15 mm Hg. Umbilical hernia, Laparoscopic converted to open primary umbilical hernia repair with small bowel resection ([id number]) on 08/16/2022 at 72 Years. Comments: 09/01/2022 15:47 EDT - Patience Bess FUR IRONER Laparoscopic converted to open primary umbilical hernia repair with small bowel resection PM Inj Spine L/S With Imaging SN on 06/29/2022 at 71 Years. Comments: 06/29/2022 8:49 SWATHI Carlos auto-populated from documented surgical case History of reverse left total shoulder arthroplasty ([id number]) in the month of 12/2021 at 71 Years. Comments: 05/13/2022 14:[address] [facility] Cardioversion ([id number]) on 06/16/[address] angiography of chest with contrast ([id number]) on 06/04/2021 at 70 Years. Echocardiogram ([id number]) on 11/21/2020 at 70 Years. Comments: 03/15/2021 12:17 Mere Singh LPN (11/21/20) Summary: 1. Left ventricle: The cavity size is increased. Systolic function is mildly reduced. The estimatedejection fraction is 45-50%. Mild diffuse hypokinesis. Diastolic dysfunction is present. 2. Aortic valve: There is mild stenosis. There is mild regurgitation. 3. Mitral valve: The annulus is calcified. There is mild to moderate regurgitation. 4. Left atrium: The atrium is mildly dilated. 5. Right ventricle: Systolic function is reduced. The RV systolic pressure by Doppler is 54 mm Hg. 6. Right atrium: The atrium is mildly dilated. The estimated right atrial pressure is 3 mm Hg. 7. Pericardium, extracardiac: There is a right pleural effusion. Aortic valve replacement and aortoplasty ([id number]) on 11/19/2020 at 70 Years. Comments: 03/15/2021 12:17 LONNIE EricksoneyMere LPN REPAIR ASCENDING AORTIC DISSECTION USING HEMASHIELD 34 MM WOVEN GRAFT, INSERTION TEMPORARY PACING WIRES Cardioversion ([id number]) on 01/26/2019 at 68 Years. Comments: 05/19/2019 9:01 Carlee Diaz MA (ABR-OE) successful cardioversion to normal sinus rhythm Stress testing using pharmacologic-induced stress ([id number]) on 10/20/2018 at 68 Years. Comments: 05/19/2019 9:00 Carlee Diaz MA (ABR-OE) EKG portion of Lexiscan stress test is negative for inducible ischemia 1. Reversible defect in the inferior, inferolateral, lateral and anterolateral bhandari suggesting ischemia in this area. 2. Mildly dilated LEFT ventricle with an ejection fraction of 26%. Wall motion as above. Cardiac catheterization ([id number]) on 10/18/2018 at 68 Years. Comments: 05/19/2019 8:57 Carlee Diaz MA (ABR-OE) SUMMARY: 1. Right coronary: Proximal vessel lesion: There is a 100% stenosis. Appearance of POLYETHYLENE COMBINER with small jump collaterals to mid RCA. RPDA fills via collaterals from the LAD. 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 IMPRESSIONS: 1. Single vessel coronary artery disease, predominantly involving the RCA. 2. The proximal lesion has appearance of chronic total occlusion with small jump collaterals to midRCA. There are collaterals filling the RPDA from left anterior descending artery. 3. 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 4. Case discussed with CT surgery due to incidental finding of LAD fistula to PA. Will pursue stress test to evaluate for anterior wall ischemia possibly related to shunt from proximal LAD fistula Hernia repair ([id number]). Colonoscopy ([id number]). Implantation of permanent spinal cord stimulator ([id number]). Comments: 06/18/2023 6:52 Yesenia Hagan RN nevro Atrial fibrillation ([id number]). Comments: 08/25/2023 9:20 EDT - sRobyn MA July 2023 Social History: Social & Psychosocial Habits Alcohol 08/30/2023 Use: Past Substance Abuse 08/30/2023 Use: Past Type: Marijuana Frequency: 1-2 times per week Comment: has a medical card for this uses gummies and ointments - 05/13/2022 14:04 SWATHI Mensah Tobacco 08/30/2023 Tobacco Use: Never (less than 100 in l Home/Environment 08/30/2023 Domestic Concerns None Living situation: Home/Independent Nutrition/Health 08/30/2023 Type of diet: Regular Appetite Excellent Eating Difficulties None 08/30/2023 Caffeine intake amount: 2 cups per week Sexual 08/30/2023 What is your current gender identity? (Check all that apply) Identifies as male Physical Examination Vital Signs(last 24 hrs) Last Charted Temp Oral36.5 DegC (AUGUST 29 06:46) ARO694 mmHg (AUGUST 29 06:46) DBP85 mmHg (AUGUST 29 06:46) BMI30.56 (AUGUST 29 06:46) General: Alert and oriented. Airway: Normal temporomandibular joint mobility, Normal mouth, Normal throat, Normal neck range of motion, Trachea midline. Mallampati classification: II (soft palate, fauces, uvula visible). Head: Normocephalic. Dentition Evaluation: Dentures, lower, Dentures, upper. Neck: Supple. Respiratory: Lungs are clear to auscultation. Cardiovascular: Normal rate. Heart Sounds: Normal. Gastrointestinal: Soft. Musculoskeletal Normal range of motion. Integumentary: Intact, Warm, Dry, [place]. Neurologic: Alert, Oriented. Review / Management Results review: Labs (Last four charted values) WBC 5.9(AUGUST 29) Hgb 15.7(AUGUST 29) Hct 47.3(AUGUST 29) Plt 167(AUGUST 29) Na 143(AUGUST 29) K 4.3(AUGUST 29) CO2 28(AUGUST 29) Cl 106(AUGUST 29) Cr H 1.74(AUGUST 29) BUN H 30.0(AUGUST 29) Glucose H 120(AUGUST 29) Ca 9.2(AUGUST 29) PT 13.7(AUGUST 29) INR 1.2(AUGUST 29) . Assessment and Plan [place] [employer] Anesthesiologists (ASA) physical status classification: Class IV. Anesthetic Preoperative Plan Premedication: None. Anesthetic technique: General. Induction: intravenously. Maintenance airway: Mask. Special techniques: Warming device, no Extracorporeal. Special Monitoring. Postoperative pain management: Per surgeon. Risks discussed: nausea, vomiting, headache, sore throat, dental injury, hypotension, allergic reaction, serious complications. Informed consent: signed by patient. Beta Mimi: Beta Mimi Taken Within 24 Hrs: Yes. Digitally Signed by MARIXA WILBURN DO on 08/30/2023 08:58 AM [facility] [id number] NoteATRIAL FIBRILLATION VENTRICULAR PREMATURE COMPLEX RBBB AND LAFB Electronic Signature: FABRICIO VIGIL MD 08/30/2023 10:40[facility] Discharge summary Date of Service June 18, 2023 Shared/Split visit with Dr. Jyothi Rao - Dr. Kowalski Discharge Diagnosis AF Hospital Course This is a 72-year-old male following a general cardiology for recurring persistent atrial fibrillation status post bypass graft surgery with valvular repair. Patient is currently on amiodarone and anticoagulant Xarelto at 15 mg nightly He was recently evaluated by Dr. Kowalski on May 28, 2023 requesting direct- current cardioversion. Patient presented for direct-current cardioversion on June 18, 2023 in a fasting well-hydrated state. Presenting rhythm was atrial flutter with left bundle branch block. Heart rate approximately 70 bpm. Once a SHEET ROCK HANGER administered an IV anesthetic agent and the patient was fully sedated anterior posterior patch approach utilizing synchronized biphasic waveform at 75 J was successful converting patient back to normal sinus rhythm at a heart rate of 60 bpm. First-degree AV block was noted. 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 The patient tolerated the seizure well and returned to cardiac same-day in good condition. Palpation remain on current medical therapies. Follow-up as directed. Allergies penicillin (Skin breakdown) Procedures 06/18/2023 -> DCC -> NSR, 1AVB Consults No qualifying data available. Objective Vitals and Measurements T: 37.1 C (Temporal Artery) TMIN: 36.6 C (Oral) TMAX: 37.1 C (Temporal Artery) HR: 60(Monitored) RR: 18 BP: 125/75 SpO2: 96% HT: 188 cm WT: 115 kg Weight Dosing Weight: 115 kg (06/18/23) Pending Labs and Studies EKG prior to discharge Code Status No qualifying data available. Admission Date June 18, 2023 Discharge Date June 18, 2023 Patient Instructions No driving for today. Patient may resume prior diet and activity tomorrow. Medications Unchanged amiodarone (amiodarone 200 mg oral tablet)1 tab(s) by mouth once a day. Refills: 3. ascorbic acid (Vitamin C 500 mg oral tablet)1 tab(s) by mouth once a day. atorvastatin (atorvastatin 40 mg oral tablet)1 tab(s) by mouth once a day. Refills: 3. bumetanide (bumetanide 1 mg oral tablet)0.5 tab(s) by mouth every Wednesday and . Refills: 3. carvedilol (carvedilol 25 mg oral tablet)1 tab(s) by mouth two (2) times a day. Refills: 3. cholecalciferol (Vitamin D3 25 mcg (1000 intl units) oral capsule)1 cap by mouth every day. dapagliflozin (Farxiga 10 mg oral tablet)1 tab(s) by mouth once a day. Refills: 3. oxyCODONE (oxyCODONE 5 mg oral tablet ( IMMEDIATE release ))1 tab(s) by mouth every 4 hours as needed for pain for 30 Days. Refills: 0. rivaroxaban (Xarelto 15 mg oral tablet)1 tab(s) by mouth daily at bedtime. with food with evening meal. Refills: 3. Follow Up as directed by Gen Card Condition on Discharge Stable Digitally Signed by MIL LEON on 06/18/2023 09:26 AM [id number] Discharge instructions Patient Education 06/18/2023 10:23:51 3- Cardioversion (01/2018) (CUSTOM) CARDIOVERSION Discharge instructions ACTIVITY/SAFETY Please refrain from the following activities for 24 hours: Do not drive a car or operate heavy equipment. Do not consume alcohol for 24 hours. Do not return to work for 24 hours. Postpone signing any important papers or making important decisions. COMFORT Call your primary doctor if you have any redness, tenderness, warmth, discharge or swelling at yourIV site. Your chest or back may get red and/or develop a burning sensation. Apply fragrance-free Aloe Vera lotion. Take Tylenol as needed for pain. DIET When you return home, resume your regular diet unless otherwise directed. Some of the sedatives, anesthetic medications you received today may make you nauseated. If vomiting persists, call your doctor. Restart your usual medications unless otherwise instructed by your doctor. If you have any questions, please call your doctor at the number listed on your follow up instructions. Document Released: 03/29/2006 Document Revised: 03/15/2013 Document Reviewed: 03/30/2014 ExitCare Patient Information 2015 [employer]. This information is not intended to replace advicegiven to you by your health care provider. Make sure you discuss any questions you have with your health care provider. Follow Up Care 05/28/2023 11:30:24 With:XU KOWALSKI MD Address: [address] [place] [address] [address] [place] [address]- [phone] When:07/30/2023 13:00:00 [facility] 03-08-2024 Summary of episode note Discharge Instructions Thank you for allowing [facility] to assist you with your healthcare needs. The following is importantdischarge information regarding your hospital visit. Your Care Team HODA GRAYSON MD Your Diagnosis Lumbar radiculitis Spinal stenosis, lumbar What to do next Scheduled Follow-Up Appointments Appointment Type When With Where Contact Information OV 07/12/2023 08:00 AM EDT DELMAR MORENO [facility] PM [address] [facility] [address] [place] [address]- [phone] CV OV 07/30/2023 01:00 PM EDT [facility] Follow Up Appointments Follow Up with XU KOWALSKI MD When 07/30/2023 01:00 PM EDT Where: [address] [place] [address] [address] [place] [address]- [phone] The Following Activity and Diet Have Been Ordered for You Discharge Activity - Ordered -- Follow the post-operative/post-procedure activity instructions provided by your physician's office., 06/18/23 10:23:00 EST Discharge Diet - Ordered -- Follow the post-operative/post-procedure diet instructions provided by your physician's office.,06/18/23 10:23:00 EST The Following Equipment Has Been Ordered for You Discharge Home Equipment Discharge Wound Care - Ordered -- Follow the post-operative/post-procedure wound care instructions provided by your physician's office., 06/18/23 10:23:00 EST Allergies penicillin (Skin breakdown) Medications Please ask your primary doctor or pharmacist before taking any other medication not listed, including over the counter drugs, herbal medications, vitamins and or supplements as they may interact withyour home medications. What How Much When Why Instructions Last Dose Unchanged amiodarone (amiodarone 200 mg oral tablet) 1 tab(s) by mouth Once a day Unchanged ascorbic acid (Vitamin C 500 mg oral tablet) 1 tab(s) by mouth Once a day Unchanged atorvastatin (atorvastatin 40 mg oral tablet) 1 tab(s) by mouth Once a day Unchanged bumetanide (bumetanide 1 mg oral tablet) 0.5 tab(s) by mouth Every Wednesday and Unchanged carvedilol (carvedilol 25 mg oral tablet) 1 tab(s) by mouth Two (2) times a day Unchanged cholecalciferol (Vitamin D3 25 mcg (1000 intl units) oral capsule) 1 cap by mouth Every day Unchanged dapagliflozin (Farxiga 10 mg oral tablet) 1 tab(s) by mouth Once a day Unchanged oxyCODONE (oxyCODONE 5 mg oral tablet ( IMMEDIATE release )) 1 tab(s) by mouth Every 4 hours as needed for for pain Lumbar radiculitis Spinal stenosis, lumbar Duration: 30 Days Unchanged rivaroxaban (Xarelto 15 mg oral tablet) 1 tab(s) by mouth Daily at bedtime with food with evening meal Please take this list to your next doctor s visit. Bring all medications you take, including over the counter medications, herbals and other supplements with you to your doctor s visit. Patients and families are reminded to discard old lists and to update any records with all medication providers or retail pharmacies. Education Materials CARDIOVERSION Discharge instructions ACTIVITY/SAFETY Please refrain from the following activities for 24 hours: Do not drive a car or operate heavy equipment. Do not consume alcohol for 24 hours. Do not return to work for 24 hours. Postpone signing any important papers or making important decisions. COMFORT Call your primary doctor if you have any redness, tenderness, warmth, discharge or swelling at yourIV site. Your chest or back may get red and/or develop a burning sensation. Apply fragrance-free Aloe Vera lotion. Take Tylenol as needed for pain. DIET When you return home, resume your regular diet unless otherwise directed. Some of the sedatives, anesthetic medications you received today may make you nauseated. If vomiting persists, call your doctor. Restart your usual medications unless otherwise instructed by your doctor. If you have any questions, please call your doctor at the number listed on your follow up instructions. Document Released: 03/29/2006 Document Revised: 03/15/2013 Document Reviewed: 03/30/2014 ExitCare Patient Information 2015 [employer]. This information is not intended to replace advicegiven to you by your health care provider. Make sure you discuss any questions you have with your health care provider. Additional Information VACCINATE! IT SAVES LIVES! Members of the community who have not yet received the COVID-19 vaccine and would like to receive it can visit one of [facility] vaccine clinics. There are many vaccine clinic locations within the [facility]. For locations and available times, please visit [email or web address].[place].gov/. It is important to note that some COVID mobile vaccine clinics are held outdoors and may be canceled in rainy or stormy conditions. To learn more about pediatric vaccinations (ages 5-11), we invite you to visit the [facility] webpage. [email or web address]/[email or web address] [email or web address] learn more about the COVID-19 vaccine, we invite you to visit the CDC website for a list of frequently asked questions.https://www.cdc.gov/coronavirus/2019-ncov/vaccines/faq.html [facility] Patient Portal Access Instructions: Stay connected with your healthcare team and access your personal medical information anytime with the [facility] Patient Portal. Please follow the directions below to create your OpenText account: 1.Access the email account you provided upon registration to the hospital/physician office.2.Look for an invitation email from [facility].3.Open the email and access the invitation link: [facility].4.Fill in the required crockett to create your account. To access your account, visit [email or web address]. Click the blue button labeled Access Patient Portal and then log in with the username and password that you created in the steps above. You will be able to view your test results, lab results, a summary of your visits, upcoming appointments and more. There is also a convenient messaging option where you can send secure messages to your p rovider. In addition, you will have the ability to download any documents or summaries to your computer and/or send the information securely to a physician. Remember that your healthcare information is confidential, so carefully consider who you will allowto register on the [facility] Patient Portal for access to your information. You can also access the [facility] Patient Portal on the [facility] karie. Simply click on Patient Portal and then log into your account. If you would like to receive a full copy of your medical records, please contact the [facility] Medical Records Department by calling [phone], Wednesday through Wednesday between 8 a.m. and 4:30 p.m. HOW TO SAFELY DISPOSE OF PRESCRIPTION MEDICATIONS Please use one of the following methods to safely dispose of your unused medications. 1.Use a drug disposal kit: the drug disposal pouch allows you to safely discard your old and unuseddrugs. Ask your nurse to give you one when you are discharged.2.Visit a local take-back location: Many local pharmacies and police departments have programs that collect old and unwanted prescriptiondrugs. Call your local pharmacy or go to http://bit.Meddik/8Q9Lh1l to find one close to you.3.Make use of household items: Use cat litter or old coffee grounds to dispose medications if other options arenot available. Mix your drugs with these household products, seal them in an airtight container andthrow it into the garbage. Call [facility]: [phone] to be sure your drugs can be disposed of in this way. Some medicines may require a different approach.4.Never flush your medications down the toilet. IF YOU HAVE BEEN PRESCRIBED AN OPIOID FOR PAIN If you have been prescribed an opioid (such as hydrocodone, oxycodone or morphine), it is critical to understand the possible side effects and risks of opioid pain medications. Even when taken as directed, opioids can have several side effects including: Tolerance, meaning you might need to take more of a medication for the same pain relief. Nausea, vomiting and/or constipation. Sleepiness, dizziness, dry mouth, confusion, depression or itching. Physical dependence, meaning you have withdrawal symptoms when a medication is stopped, can develop within a few days. KNOW YOUR RESPONSIBILITIES It is important to know exactly how much and how often to take the opioid pain medications you are prescribed. Never take opioids in higher amounts or more often than prescribed. Do not combine opioids with alcohol or other drugs that cause drowsiness, such as benzodiazepines, also known as benzos, including diazepam and alprazolam, muscle relaxants or sleep aids. Never sell or share prescription opioids. This is illegal. Store opioids in a secure place and out of reach of others (including children, family, friends and visitors). The last page of this document has been signed and retained as a CHART COPY. Signatures Patient Education Materials 3- Cardioversion (01/2018) (CUSTOM) Medication Leaflets My discharge plan and instructions have been reviewed and explained to me and I,JACKY ELLIS understand my current condition and have read and understand these discharge instructions. I have received a written copy of the plan/instructions. If I have questions, I am aware that I should contact my doctor. 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 Jyothi Rao - Dr. Kowalski Discharge Diagnosis AF Hospital Course This is a 72-year-old male following a general cardiology for recurring persistent atrial fibrillation status post bypass graft surgery with valvular repair. Patient is currently on amiodarone and anticoagulant Xarelto at 15 mg nightly He was recently evaluated by Dr. Kowalski on May 28, 2023 requesting direct- current cardioversion. Patient presented for direct-current cardioversion on June 18, 2023 in a fasting well-hydrated state. Presenting rhythm was atrial flutter with left bundle branch block. Heart rate approximately 70 bpm. Once a SHEET ROCK HANGER administered an IV anesthetic agent and the patient was fully sedated anterior posterior patch approach utilizing synchronized biphasic waveform at 75 J was successful converting patient back to normal sinus rhythm at a heart rate of 60 bpm. First-degree AV block was noted. 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 The patient tolerated the seizure well and returned to cardiac same-day in good condition. Palpation remain on current medical therapies. Follow-up as directed. Allergies penicillin (Skin breakdown) Procedures 06/18/2023 -> DCC -> NSR, 1AVB Consults No qualifying data available. Objective Vitals and Measurements T: 37.1 C (Temporal Artery) TMIN: 36.6 C (Oral) TMAX: 37.1 C (Temporal Artery) HR: 60(Monitored) RR: 18 BP: 125/75 SpO2: 96% HT: 188 cm WT: 115 kg Weight Dosing Weight: 115 kg (06/18/23) Pending Labs and Studies EKG prior to discharge Code Status No qualifying data available. Admission Date June 18, 2023 Discharge Date June 18, 2023 Patient Instructions No driving for today. Patient may resume prior diet and activity tomorrow. Medications Unchanged amiodarone (amiodarone 200 mg oral tablet)1 tab(s) by mouth once a day. Refills: 3. ascorbic acid (Vitamin C 500 mg oral tablet)1 tab(s) by mouth once a day. atorvastatin (atorvastatin 40 mg oral tablet)1 tab(s) by mouth once a day. Refills: 3. bumetanide (bumetanide 1 mg oral tablet)0.5 tab(s) by mouth every Wednesday and . Refills: 3. carvedilol (carvedilol 25 mg oral tablet)1 tab(s) by mouth two (2) times a day. Refills: 3. cholecalciferol (Vitamin D3 25 mcg (1000 intl units) oral capsule)1 cap by mouth every day. dapagliflozin (Farxiga 10 mg oral tablet)1 tab(s) by mouth once a day. Refills: 3. oxyCODONE (oxyCODONE 5 mg oral tablet ( IMMEDIATE release ))1 tab(s) by mouth every 4 hours as needed for pain for 30 Days. Refills: 0. rivaroxaban (Xarelto 15 mg oral tablet)1 tab(s) by mouth daily at bedtime. with food with evening meal. Refills: 3. Follow Up as directed by Gen Card Condition on Discharge Stable Digitally Signed by MIL LEON on 06/18/2023 09:26 AM [facility] [id number] Cardiology procedure note Date of Service June 18, 2023 Procedure Name Direct Current Cardioversion Referring Provider Dr. Kowalski Consent Informed consent was obtained by nursing and anesthesia personnel Indication AF Location CVOR Technique This is a 72-year-old male following a general cardiology for recurring persistent atrial fibrillation status post bypass graft surgery with valvular repair. Patient is currently on amiodarone and anticoagulant Xarelto at 15 mg nightly He was recently evaluated by Dr. Kowalski on May 28, 2023 requesting direct- current cardioversion. Patient presented for direct-current cardioversion on June 18, 2023 in a fasting well-hydrated state. Presenting rhythm was atrial flutter with left bundle branch block. Heart rate approximately 70 bpm. Once a SHEET ROCK HANGER administered an IV anesthetic agent and the patient was fully sedated anterior posterior patch approach utilizing synchronized biphasic waveform at 75 J was successful converting patient back to normal sinus rhythm at a heart rate of 60 bpm. First-degree AV block was noted. 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 The patient tolerated the seizure well and returned to cardiac same-day in good condition. Palpation remain on current medical therapies. Follow-up as directed. Assessment/Plan Orders: amiodarone, Start: 06/18/23 9:12:00 EST, Dose = 200 mg, = 1 tab(s), Oral, qDay, 06/18/23 9:12:00 EST ascorbic acid, Start: 06/18/23 12:00:00 EST, Dose = 500 mg, = 1 tab(s), Oral, qDay, 06/18/23 9:12:00 EST atorvastatin, Start: 06/18/23 22:00:00 EST, Dose = 40 mg, = 1 tab(s), Oral, qDay, 06/18/23 9:12:00 EST bumetanide, Start: 06/22/23 9:00:00 EDT, Dose = 0.5 mg, = 1 tab(s), Oral, Wednesday & , 06/18/23 9:12:00 EST carvedilol, Start: 06/18/23 9:12:00 EST, Dose = 25 mg, = 1 tab(s), Oral, BID, 06/18/23 9:12:00 EST cholecalciferol, Start: 06/18/23 9:12:00 EST, Dose = 25 mcg, = 1 tab(s), Oral, Daily, 06/18/23 9:12:00 EST dapagliflozin, Start: 06/18/23 9:12:00 EST, Dose = 10 mg, = 1 tab(s), Oral, qDay, 06/18/23 9:12:00 EST rivaroxaban, Start: 06/18/23 22:00:00 EST, Dose = 15 mg, = 1 tab(s), Oral, qHS, Indication for Use Persistant atrial fibrillation, 06/18/23 9:12:00 EST Digitally Signed by MIL LEON on 06/18/2023 09:23 AM [facility] [id number] Anesthesiology Consult note Patient: JACKY ELLIS Age: 72 years Sex: Male : 1950 Associated Diagnoses: None Author: MARIXA WILBURN DO Preoperative Information Greater than 6 hours Anesthesia history Patient's history: negative. Family's history: negative. Review of Systems Ear/Nose/Mouth/Throat: Negative except as documented in history of present illness. Respiratory: Negative except as documented in history of present illness. Cardiovascular: Negative except as documented in history of present illness, Recurrent AF for repeat DCC. Gastrointestinal: Negative except as documented in history of present illness. Genitourinary: Negative except as documented in history of present illness. Endocrine: Negative except as documented in history of present illness. Musculoskeletal: Negative except as documented in history of present illness. Integumentary: Negative except as documented in history of present illness. Neurologic: Negative except as documented in history of present illness. Health Status Allergies: Allergic Reactions (Selected) Severity Not Documented Penicillin- Skin breakdown., Allergies (1) ActiveReaction penicillinSkin breakdown Current medications: (Selected) Inpatient Medications Ordered Betadine 10% topical solution: 17.5 mL, mL/hr, Topical (INT), PREOP pharm Bicitra: 30 mL, Oral, PREOP pharm Bolus LR 1000 mL: 1,000 mL, IV Bolus, PREOP pharm Cyklokapron IVPB: 2,000 mg, 20 mL, mL/hr, Topical (INT), PREOP pharm Decadron: 10 mg, 1 mL, IV Push, AsDirected Kefzol: 3 gram(s), 200 mL/hr, IV Piggyback, PREOP pharm Naropin 25 mg + Toradol 15 mg + EPINEPHrine 1 mg/mL injectable solution 0.3 mg + morphine 2.5 mg...: 25 mg, 5 mL, mL/hr, Other, PREOP pharm Naropin 25 mg + Toradol 15 mg + EPINEPHrine 1 mg/mL injectable solution 0.3 mg + morphine 2.5 mg...: 25 mg, 5 mL, mL/hr, Other, PREOP pharm OxyCONTIN: 10 mg, 1 tab(s), Oral, PREOP pharm Pepcid IV: 20 mg, 2 mL, IV Push, PREOP pharm vancomycin: 1,750 mg, 35 mL, 306 mL/hr, IV Piggyback, PREOP pharm Prescriptions Prescribed Farxiga 10 mg oral tablet: 10 mg, 1 tab(s), Oral, qDay, 90 tab(s), 3 Refill(s) Xarelto 15 mg oral tablet: 15 mg, 1 tab(s), Oral, qHS, with food with evening meal, 90 tab(s), 3 Refill(s) amiodarone 200 mg oral tablet: 200 mg, 1 tab(s), Oral, qDay, 30 tab(s), 3 Refill(s) atorvastatin 40 mg oral tablet: 40 mg, 1 tab(s), Oral, qDay, 30 tab(s), 3 Refill(s) bumetanide 1 mg oral tablet: 0.5 mg, 0.5 tab(s), Oral, Wednesday & , 15 tab(s), 3 Refill(s) carvedilol 25 mg oral tablet: 25 mg, 1 tab(s), Oral, BID, 60 tab(s), 3 Refill(s) oxyCODONE 5 mg oral tablet ( IMMEDIATE release ): 5 mg, 1 tab(s), Oral, q4h, for 30 day(s), PRN: for pain, 180 tab(s), 0 Refill(s) Documented Medications Documented Vitamin C 500 mg oral tablet: 500 mg, 1 tab(s), Oral, qDay Vitamin D3 25 mcg (1000 intl units) oral capsule: 25 mcg, 1 cap(s), Oral, Daily, 0 Refill(s), No qualifying data available Problem list: Medical Acute on chronic systolic heart failure / SNOMED CT 5817296356 / Confirmed Postoperative anemia / SNOMED CT 584314820 / Confirmed Aneurysm, thoracic aortic / SNOMED CT 3670210720 / Confirmed Aortic root dilation / SNOMED CT 399895432 / Confirmed OBESITY (BMI 30-39.9) / SNOMED CT 617380352 / Confirmed LOW HDL (UNDER 40) / SNOMED CT 832127815 / Confirmed CRF (CHRONIC RENAL FAILURE), STAGE 2 (MILD) / SNOMED CT 5841554505 / Confirmed CORONARY ARTERY DISEASE, OCCLUSIVE / SNOMED CT 07446806 / Confirmed FISTULA, CORONARY ARTERY / SNOMED CT 1751564976 / Confirmed Encounter for monitoring cardiotoxic drug therapy / SNOMED CT 444000867 / Confirmed Fatigue / SNOMED CT 211976598 / Confirmed HISTORY OF CHRONIC BACK PAIN / SNOMED CT 845695319 / Confirmed RECEIVED INFLUENZA VACCINATION AT HOSPITAL / SNOMED CT 855927801 / Confirmed HFrEF (heart failure with reduced ejection fraction) / SNOMED CT 9889015081 / Confirmed Hyperlipidemia / SNOMED CT 46446928 / Confirmed ELEVATED GLUCOSE / SNOMED CT 703167516 / Confirmed SCOLIOSIS/KYPHOSCOLIOSIS / SNOMED CT 767552041 / Confirmed Left-sided weakness/bilateral frontoparietal foci of acute ischemia / SNOMED CT 031308730 / Confirmed Lumbar radiculitis / SNOMED CT 2718340926 / Confirmed Newly diagnosed diabetes HgbA1C 6.9 / SNOMED CT 6378682149 / Confirmed BMI 28.0-28.9,adult / SNOMED CT 5127130458 / Confirmed Preop cardiovascular exam / SNOMED CT 435578028 / Confirmed PERSISTENT ATRIAL FIBRILLATION / SNOMED CT 4259062028 / Confirmed PNEUMOCOCCAL VACCINATION GIVEN / SNOMED CT 095367480 / Confirmed RIGHT BUNDLE-BRANCH BLOCK / SNOMED CT 00158076 / Confirmed Spinal stenosis, lumbar / SNOMED CT 34717970 / Confirmed Type II diabetes mellitus / SNOMED CT 700617510 / Confirmed, Active Problems (39) Acute chest pain Acute on chronic systolic heart failure AF (atrial fibrillation) Aneurysm, thoracic aortic Aortic root dilation Arthritis BMI 28.0-28.9,adult CHF (congestive heart failure) CORONARY ARTERY DISEASE, OCCLUSIVE CRF (CHRONIC RENAL FAILURE), STAGE 2 (MILD) ELEVATED GLUCOSE Encounter for monitoring cardiotoxic drug therapy Fatigue FISTULA, CORONARY ARTERY Glasses HFrEF (heart failure with reduced ejection fraction) Hiatal hernia HISTORY OF CHRONIC BACK PAIN HTN (hypertension) Hyperlipidemia Left-sided weakness/bilateral frontoparietal foci of acute ischemia LOW HDL (UNDER 40) Lumbar radiculitis Newly diagnosed diabetes HgbA1C 6.9 OBESITY (BMI 30-39.9) Osteoarthritis Pain management PERSISTENT ATRIAL FIBRILLATION PNEUMOCOCCAL VACCINATION GIVEN Postoperative anemia Preop cardiovascular exam RECEIVED INFLUENZA VACCINATION AT HOSPITAL RIGHT BUNDLE-BRANCH BLOCK Scoliosis SCOLIOSIS/KYPHOSCOLIOSIS Spinal stenosis Spinal stenosis, lumbar Type II diabetes mellitus Wrist fracture Histories Past Medical History: Resolved Elevated glucose ([id number]): Resolved. Family History: Cancer Mother Brother Sister Father Procedure history: Lumbar radiculitis ([id number]) on 10/26/2022 at 72 Years. Echocardiogram ([id number]) on 09/29/2022 at 72 Years. Comments: 10/15/2022 14:01 Carlee Mcneil MA (ABR-OE) 1. Left ventricle: The cavity size is moderately increased. Wall thickness is moderately increased.Systolic function is moderately reduced. The estimated ejection fraction is 35-40%. Severe hypokinesis of the inferolateral and inferior myocardium. Diastolic dysfunction present but unable to assess severity. 2. Aortic valve: Thickening, consistent with sclerosis. There is mild, 1+ regurgitation. 3. Mitral valve: The annulus is moderately to severely calcified. There is moderate, 2+ regurgitation. 4. Left atrium: The atrium is moderately dilated. 5. Right ventricle: Systolic pressure is moderately increased. The RV systolic pressure by Doppler is 64 mm Hg. 6. Tricuspid valve: There is moderate, 2+ regurgitation. 7. Right atrium: The atrium is moderately dilated. The estimated right atrial pressure is 15 mm Hg. Umbilical hernia, Laparoscopic converted to open primary umbilical hernia repair with small bowel resection ([id number]) on 08/16/2022 at 72 Years. Comments: 09/01/2022 15:47 EDT - Patience Bess FUR IRONER Laparoscopic converted to open primary umbilical hernia repair with small bowel resection PM Inj Spine L/S With Imaging SN on 06/29/2022 at 71 Years. Comments: 06/29/2022 8:49 SWATHI Carlos auto-populated from documented surgical case History of reverse left total shoulder arthroplasty ([id number]) in the month of 12/2021 at 71 Years. Comments: 05/13/2022 14:[address] [facility] Cardioversion ([id number]) on 06/16/[address] angiography of chest with contrast ([id number]) on 06/04/2021 at 70 Years. Echocardiogram ([id number]) on 11/21/2020 at 70 Years. Comments: 03/15/2021 12:17 Mere Singh LPN (11/21/20) Summary: 1. Left ventricle: The cavity size is increased. Systolic function is mildly reduced. The estimatedejection fraction is 45-50%. Mild diffuse hypokinesis. Diastolic dysfunction is present. 2. Aortic valve: There is mild stenosis. There is mild regurgitation. 3. Mitral valve: The annulus is calcified. There is mild to moderate regurgitation. 4. Left atrium: The atrium is mildly dilated. 5. Right ventricle: Systolic function is reduced. The RV systolic pressure by Doppler is 54 mm Hg. 6. Right atrium: The atrium is mildly dilated. The estimated right atrial pressure is 3 mm Hg. 7. Pericardium, extracardiac: There is a right pleural effusion. Aortic valve replacement and aortoplasty ([id number]) on 11/19/2020 at 70 Years. Comments: 03/15/2021 12:17 Mere Singh LPN REPAIR ASCENDING AORTIC DISSECTION USING HEMASHIELD 34 MM WOVEN GRAFT, INSERTION TEMPORARY PACING WIRES Cardioversion ([id number]) on 01/26/2019 at 68 Years. Comments: 05/19/2019 9:01 Carlee Diaz MA (ABR-OE) successful cardioversion to normal sinus rhythm Stress testing using pharmacologic-induced stress ([id number]) on 10/20/2018 at 68 Years. Comments: 05/19/2019 9:00 Carlee Diaz MA (ABR-OE) EKG portion of Lexiscan stress test is negative for inducible ischemia 1. Reversible defect in the inferior, inferolateral, lateral and anterolateral bhandari suggesting ischemia in this area. 2. Mildly dilated LEFT ventricle with an ejection fraction of 26%. Wall motion as above. Cardiac catheterization ([id number]) on 10/18/2018 at 68 Years. Comments: 05/19/2019 8:57 Carlee Diaz MA (ABR-OE) SUMMARY: 1. Right coronary: Proximal vessel lesion: There is a 100% stenosis. Appearance of POLYETHYLENE COMBINER with small jump collaterals to mid RCA. RPDA fills via collaterals from the LAD. 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 IMPRESSIONS: 1. Single vessel coronary artery disease, predominantly involving the RCA. 2. The proximal lesion has appearance of chronic total occlusion with small jump collaterals to midRCA. There are collaterals filling the RPDA from left anterior descending artery. 3. 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 4. Case discussed with CT surgery due to incidental finding of LAD fistula to PA. Will pursue stress test to evaluate for anterior wall ischemia possibly related to shunt from proximal LAD fistula Hernia repair ([id number]). Colonoscopy ([id number]). Implantation of permanent spinal cord stimulator ([id number]). Comments: 06/18/2023 6:52 Yesenia Hagan RN Social History Social & Psychosocial Habits Alcohol 06/18/2023 Use: Past Substance Abuse 06/18/2023 Use: Past Type: Marijuana Frequency: 1-2 times per week Comment: has a medical card for this uses gummies and ointments - 05/13/2022 14:04 - SWATHI Jones Tobacco 06/18/2023 Tobacco Use: Never (less than 100 in l Home/Environment 06/18/2023 Domestic Concerns None Living situation: Home/Independent Nutrition/Health 06/18/2023 Type of diet: Regular Appetite Excellent Eating Difficulties None 06/18/2023 Caffeine intake amount: 2 cups per week . Physical Examination Vital Signs(last 24 hrs) Last Charted Temp Oral36.6 DegC (JUN 17 06:27) DPZ393 mmHg (JUN 17 06:27) DBPH 94mmHg (JUN 17 06:27) General: Alert and oriented. Airway: Normal temporomandibular joint mobility, Normal mouth, Normal throat, Normal neck range of motion, Trachea midline. Mallampati classification: II (soft palate, fauces, uvula visible). Head: Normocephalic. Dentition Evaluation: Own teeth, Dentures, lower, Dentures, partial plate. Neck: Supple. Respiratory: Lungs are clear to auscultation. Cardiovascular: Normal rate. Heart Sounds: Normal. Gastrointestinal: Soft. Musculoskeletal Normal range of motion. Integumentary: Intact, Warm, Dry, [place]. Neurologic: Alert, Oriented. Review / Management Results review: Labs (Last four charted values) Na 140(JUN 17) K 4.4(JUN 17) CO2 26(JUN 17) Cl 108(JUN 17) Cr H 1.79(JUN 17) BUN H 32.0(JUN 17) Glucose 105(JUN 17) Ca 9.0(JUN 17) . Assessment and Plan [place] [employer]esthesiologists (ASA) physical status classification: Class IV. Anesthetic Preoperative Plan Premedication: None. Anesthetic technique: General. Induction: intravenously. Maintenance airway: Mask. Special techniques: Warming device, no Extracorporeal. Special Monitoring. Postoperative pain management: Per surgeon. Risks discussed: nausea, vomiting, headache, sore throat, dental injury, hypotension, allergic reaction, serious complications. Informed consent: signed by patient. Beta Mimi: Beta Mimi Taken Within 24 Hrs: Yes. Digitally Signed by MARIXA WILBURN DO on 06/18/2023 08:27 AM [id number] Note ORIGINAL Images acquired, not reported on this accession number.[facility]08-21-2023 Hospital Discharge instructions Patient Education 11/30/2022 09:09:50 Monitored Anesthesia Care, Care After Monitored Anesthesia Care, Care After These instructions provide you with information about caring for yourself after your procedure. Your health care provider may also give you more specific instructions. Your treatment has been plannedaccording to current medical practices, but problems sometimes occur. Call your health care provider if you have any problems or questions after your procedure. What can I expect after the procedure? After your procedure, you may: Feel sleepy for several hours. Feel clumsy and have poor balance for several hours. Feel forgetful about what happened after the procedure. Have poor judgment for several hours. Feel nauseous or vomit. Have a sore throat if you had a breathing tube during the procedure. Follow these instructions at home: For at least 24 hours after the procedure: Have a responsible adult stay with you. It is important to have someone help care for you until youare awake and alert. Rest as needed. Do not: ?Participate in activities in which you could fall or become injured. ?Drive. ?Use heavy machinery. ?Drink alcohol. ?Take sleeping pills or medicines that cause drowsiness. ?Make important decisions or sign legal documents. ?Take care of children on your own. Eating and drinking Follow the diet that is recommended by your health care provider. If you vomit, drink water, juice, or soup when you can drink without vomiting. Make sure you have little or no nausea before eating solid foods. General instructions Take lkwl-ctd-ajjhvzh and prescription medicines only as told by your health care provider. If you have sleep apnea, surgery and certain medicines can increase your risk for breathing problems. Follow instructions from your health care provider about wearing your sleep device: ?Anytime you are sleeping, including during daytime naps. ?While taking prescription pain medicines, sleeping medicines, or medicines that make you drowsy. If you smoke, do not smoke without supervision. Keep all follow-up visits as told by your health care provider. This is important. Contact a health care provider if: You keep feeling nauseous or you keep vomiting. You feel light-headed. You develop a rash. You have a fever. Get help right away if: You have trouble breathing. Summary For several hours after your procedure, you may feel sleepy and have poor judgment. Have a responsible adult stay with you for at least 24 hours or until you are awake and alert. This information is not intended to replace advice given to you by your health care provider. Make sure you discuss any questions you have with your health care provider. Document Released: 07/19/2016 Document Revised: 06/27/2018 Document Reviewed: 07/19/2016 [employer] Patient Education 2020 [employer]. 11/30/2022 09:09:42 Spinal Cord Stimulator Implantation, Care After Spinal Cord Stimulator Implant, Care After This sheet gives you information about how to care for yourself after your procedure. Your health care provider may also give you more specific instructions. If you have problems or questions, contact your health care provider. What can I expect after the procedure? After the procedure, it is common to have: Mild pain, bruising, and swelling. Headaches. Soreness in the back. Follow these instructions at home: Incision care Follow instructions from your health care provider about how to take care of your incisions. Make sure you: ?Wash your hands with soap and water before you change your bandages (dressings). If soap and waterare not available, use hand core mounter. ?Change your dressings as told by your health care provider. ?Leave stitches (sutures), skin glue, or adhesive strips in place. These skin closures may need to stay in place for 2 weeks or longer. If adhesive strip edges start to loosen and curl up, you may trim the loose edges. Do not remove adhesive strips completely unless your health care provider tells you to do that. Check your incision areas every day for signs of infection. Check for: ?Redness, more swelling, or more pain. ?More fluid or blood. ?Warmth. ?Pus or a bad smell. Activity Ask your health care provider what activities are safe for you during recovery. Do not do any of the following until your health care provider approves: ?Drive. ?Activity that requires a lot of energy, including exercise and sports. ?Lift anything that is heavier than 5 lb (2.3 kg), or the limit that you are told. ?Engage in sexual activity. ?Lift your arms above your head. ?Sleep on your stomach, if your device was placed in your abdomen. ?Bend, twist, stretch, or reach for things. Bathing Do not take baths, swim, or use a hot tub until your health care provider approves. Ask your healthcare provider if you may take showers. You may only be allowed to take sponge baths. Safety Devices that sends out wireless signals may affect your stimulator. If directed by your health careprovider, avoid the following: ?MRI and ultrasound tests. ?Metal detectors. ?Anti-theft devices. ?Generators or power lines. Always carry your device ID card with you. Tell all health care providers who care for you that you have a spinal cord stimulator. This is important information that could affect the medical treatment that you receive. General instructions Work with your health care provider to adjust your settings as needed for pain control. Adjusting settings may take some time. Most stimulators can be controlled with a remote. Take tvvy-kxe-fvjqbwx and prescription medicines only as told by your health care provider. Do not use any products that contain nicotine or tobacco, such as cigarettes and e-cigarettes. If you need help quitting, ask your health care provider. Drink enough fluid to keep your urine pale yellow. Keep all follow-up visits as told by your health care provider. This is important. Contact a health care provider if you have: A fever. Severe pain, and medicines do not help. More fluid or blood coming from your incisions. Headaches that do not go away. Get help right away if: You have redness, more swelling, or more pain around your incisions. Your incision area feels warm to the touch. You have pus or a bad smell coming from your incision area. You have chest pain or problems breathing. You have sudden and severe back pain. You have weakness or sudden muscle tightening (spasms) in your legs. You are not able to control when you urinate or have a bowel movement (incontinence). Summary After implantation of a spinal cord stimulator, mild pain, muscle soreness, headaches, and bruisingare common. Follow instructions from your health care provider about incision care, bathing, medicines, and activity. Work with your health care provider to adjust your settings as needed for pain control. Adjusting settings may take some time. Most stimulators can be controlled with a remote. This information is not intended to replace advice given to you by your health care provider. Make sure you discuss any questions you have with your health care provider. Document Released: 05/12/2018 Document Revised: 07/20/2019 Document Reviewed: 05/12/2018 [employer] Patient Education 2020 [employer] Follow Up Care 11/11/2022 09:56:44 With:DELMAR MORENO MD Address: [address] [place] [address] [place] [address] [phone] When: Unknown Comments:Follow-up as needed [facility] 08-21-2023 Summary of episode note Discharge Instructions Thank you for allowing [facility] to assist you with your healthcare needs. The following is importantdischarge information regarding your hospital visit. Your Care Team HODA GRAYSON MD Your Diagnosis Spinal stenosis, lumbar Left-sided weakness/bilateral frontoparietal foci of acute ischemia What to do next Scheduled Follow-Up Appointments Appointment Type When With Where Contact InformationPM OV 12/16/2022 09:30 AM MARTHA DAVIDSON APRN-[employer] [facility] Pain Management Follow Up Appointments Follow Up with DELMAR MORENO MD When Why: Follow-up as needed Where: [address] [place] [address] [place] [address]- [phone] Allergies penicillin (Skin breakdown) Medications Please ask your primary doctor or pharmacist before taking any other medication not listed, including over the counter drugs, herbal medications, vitamins and or supplements as they may interact withyour home medications. What How Much When Why Instructions Last Dose New acetaminophen-oxyCODONE (acetaminophen-oxyCODONE 325 mg-5 mg oral tablet) 1 tab(s) by mouth Every 4 hours as needed for for pain Spinal stenosis, lumbar Duration: 7 Days for post op pain SCS implant Pickup at [id number] Unchanged acetaminophen-hydrocodone (acetaminophen-hydrocodone 325 mg-7.5 mg oral tablet) 1 tab(s) by mouth Four (4) times a day as needed for for pain Lumbar stenosis with neurogenic claudication Duration: 30 Days Unchanged amiodarone (amiodarone 200 mg oral tablet) 1 tab(s) by mouth Once a day Unchanged ascorbic acid (Vitamin C 500 mg oral tablet) 1 tab(s) by mouth Once a day Unchanged atorvastatin (atorvastatin 40 mg oral tablet) 1 tab(s) by mouth Once a day Unchanged bumetanide (bumetanide 1 mg oral tablet) TAKE 1 TABLET BY MOUTH EVERY DAY Unchanged carvedilol (carvedilol 25 mg oral tablet) 1 tab(s) by mouth Two (2) times a day Unchanged cholecalciferol (Vitamin D3 25 mcg (1000 intl units) oral capsule) 1 cap by mouth Every day Unchanged dapagliflozin (Farxiga 10 mg oral tablet) 1 tab(s) by mouth Once a day Unchanged rivaroxaban (Xarelto 15 mg oral tablet) 1 tab(s) by mouth Daily at bedtime with food with evening meal Unchanged tiZANidine (tiZANidine 4 mg oral tablet) TAKE 1 TABLET BY MOUTH THREE TIMES A DAY NEEDED Pharmacy Information [facility] #[id number]: [address], [place] [phone] Please take this list to your next doctor s visit. Bring all medications you take, including over the counter medications, herbals and other supplements with you to your doctor s visit. Patients and families are reminded to discard old lists and to update any records with all medication providers or retail pharmacies. Education Materials Monitored Anesthesia Care, Care After These instructions provide you with information about caring for yourself after your procedure. Your health care provider may also give you more specific instructions. Your treatment has been plannedaccording to current medical practices, but problems sometimes occur. Call your health care provider if you have any problems or questions after your procedure. What can I expect after the procedure? After your procedure, you may: Feel sleepy for several hours. Feel clumsy and have poor balance for several hours. Feel forgetful about what happened after the procedure. Have poor judgment for several hours. Feel nauseous or vomit. Have a sore throat if you had a breathing tube during the procedure. Follow these instructions at home: For at least 24 hours after the procedure: Have a responsible adult stay with you. It is important to have someone help care for you until youare awake and alert. Rest as needed. Do not: ? Participate in activities in which you could fall or become injured. ? Drive. ? Use heavy machinery. ? Drink alcohol. ? Take sleeping pills or medicines that cause drowsiness. ? Make important decisions or sign legal documents. ? Take care of children on your own. Eating and drinking Follow the diet that is recommended by your health care provider. If you vomit, drink water, juice, or soup when you can drink without vomiting. Make sure you have little or no nausea before eating solid foods. General instructions Take helt-zka-vtjyqnr and prescription medicines only as told by your health care provider. If you have sleep apnea, surgery and certain medicines can increase your risk for breathing problems. Follow instructions from your health care provider about wearing your sleep device: ? Anytime you are sleeping, including during daytime naps. ? While taking prescription pain medicines, sleeping medicines, or medicines that make you drowsy. If you smoke, do not smoke without supervision. Keep all follow-up visits as told by your health care provider. This is important. Contact a health care provider if: You keep feeling nauseous or you keep vomiting. You feel light-headed. You develop a rash. You have a fever. Get help right away if: You have trouble breathing. Summary For several hours after your procedure, you may feel sleepy and have poor judgment. Have a responsible adult stay with you for at least 24 hours or until you are awake and alert. This information is not intended to replace advice given to you by your health care provider. Make sure you discuss any questions you have with your health care provider. Document Released: 07/19/2016 Document Revised: 06/27/2018 Document Reviewed: 07/19/2016 [employer] Patient Education 2020 [employer]. Spinal Cord Stimulator Implant, Care After This sheet gives you information about how to care for yourself after your procedure. Your health care provider may also give you more specific instructions. If you have problems or questions, contact your health care provider. What can I expect after the procedure? After the procedure, it is common to have: Mild pain, bruising, and swelling. Headaches. Soreness in the back. Follow these instructions at home: Incision care Follow instructions from your health care provider about how to take care of your incisions. Make sure you: ? Wash your hands with soap and water before you change your bandages (dressings). If soap and water are not available, use hand core mounter. ? Change your dressings as told by your health care provider. ? Leave stitches (sutures), skin glue, or adhesive strips in place. These skin closures may need to stay in place for 2 weeks or longer. If adhesive strip edges start to loosen and curl up, you may trim the loose edges. Do not remove adhesive strips completely unless your health care provider tells you to do that. Check your incision areas every day for signs of infection. Check for: ? Redness, more swelling, or more pain. ? More fluid or blood. ? Warmth. ? Pus or a bad smell. Activity Ask your health care provider what activities are safe for you during recovery. Do not do any of the following until your health care provider approves: ? Drive. ? Activity that requires a lot of energy, including exercise and sports. ? Lift anything that is heavier than 5 lb (2.3 kg), or the limit that you are told. ? Engage in sexual activity. ? Lift your arms above your head. ? Sleep on your stomach, if your device was placed in your abdomen. ? Bend, twist, stretch, or reach for things. Bathing Do not take baths, swim, or use a hot tub until your health care provider approves. Ask your healthcare provider if you may take showers. You may only be allowed to take sponge baths. Safety Devices that sends out wireless signals may affect your stimulator. If directed by your health careprovider, avoid the following: ? MRI and ultrasound tests. ? Metal detectors. ? Anti-theft devices. ? Generators or power lines. Always carry your device ID card with you. Tell all health care providers who care for you that you have a spinal cord stimulator. This is important information that could affect the medical treatment that you receive. General instructions Work with your health care provider to adjust your settings as needed for pain control. Adjusting settings may take some time. Most stimulators can be controlled with a remote. Take ngig-uyy-auffato and prescription medicines only as told by your health care provider. Do not use any products that contain nicotine or tobacco, such as cigarettes and e-cigarettes. If you need help quitting, ask your health care provider. Drink enough fluid to keep your urine pale yellow. Keep all follow-up visits as told by your health care provider. This is important. Contact a health care provider if you have: A fever. Severe pain, and medicines do not help. More fluid or blood coming from your incisions. Headaches that do not go away. Get help right away if: You have redness, more swelling, or more pain around your incisions. Your incision area feels warm to the touch. You have pus or a bad smell coming from your incision area. You have chest pain or problems breathing. You have sudden and severe back pain. You have weakness or sudden muscle tightening (spasms) in your legs. You are not able to control when you urinate or have a bowel movement (incontinence). Summary After implantation of a spinal cord stimulator, mild pain, muscle soreness, headaches, and bruisingare common. Follow instructions from your health care provider about incision care, bathing, medicines, and activity. Work with your health care provider to adjust your settings as needed for pain control. Adjusting settings may take some time. Most stimulators can be controlled with a remote. This information is not intended to replace advice given to you by your health care provider. Make sure you discuss any questions you have with your health care provider. Document Released: 05/12/2018 Document Revised: 07/20/2019 Document Reviewed: 05/12/2018 Else2threads Patient Education 2020 [employer] Additional Information VACCINATE! IT SAVES LIVES! Members of the community who have not yet received the COVID-19 vaccine and would like to receive it can visit one of [facility] vaccine clinics. There are many vaccine clinic locations within the [facility]. For locations and available times, please visit [email or web address] It is important to note that some COVID mobile vaccine clinics are held outdoors and may be canceled in rainy or stormy conditions. To learn more about pediatric vaccinations (ages 5-11), we invite you to visit the [facility] webpage. [email or web address] learn more about the COVID-19 vaccine, we invite you to visit the CDC website for a list of frequently asked questions.https://www.cdc.gov/coronavirus/2019-ncov/vaccines/faq.html [facility] Patient Portal Access Instructions: Stay connected with your healthcare team and access your personal medical information anytime with the [facility] Patient Portal. Please follow the directions below to create your OpenText account: 1.Access the email account you provided upon registration to the hospital/physician office.2.Look for an invitation email from [facility].3.Open the email and access the invitation link: AcceptInvitation to [facility].4.Fill in the required crockett to create your account. To access your account, visit [email or web address]. Click the blue button labeled Access Patient Portal and then log in with the username and password that you created in the steps above. You will be able to view your test results, lab results, a summary of your visits, upcoming appointments and more. There is also a convenient messaging option where you can send secure messages to your p rovider. In addition, you will have the ability to download any documents or summaries to your computer and/or send the information securely to a physician. Remember that your healthcare information is confidential, so carefully consider who you will allowto register on the [facility] Patient Portal for access to your information. You can also access the [facility] Patient Portal on the [facility] karie. Simply click on Patient Portal and then log into your account. If you would like to receive a full copy of your medical records, please contact the [facility] Medical Records Department by calling [phone], Wednesday through Wednesday between 8 a.m. and 4:30 p.m. HOW TO SAFELY DISPOSE OF PRESCRIPTION MEDICATIONS Please use one of the following methods to safely dispose of your unused medications. 1.Use a drug disposal kit: the drug disposal pouch allows you to safely discard your old and unuseddrugs. Ask your nurse to give you one when you are discharged.2.Visit a local take-back location: Many local pharmacies and police departments have programs that collect old and unwanted prescriptiondrugs. Call your local pharmacy or go to http://Mapflow.Meddik/[email or web address] to find one close to you.3.Make use of household items: Use cat litter or old coffee grounds to dispose medications if other options arenot available. Mix your drugs with these household products, seal them in an airtight container andthrow it into the garbage. Call [facility]: [phone] to be sure your drugs can be disposed of in this way. Some medicines may require a different approach.4.Never flush your medications down the toilet. IF YOU HAVE BEEN PRESCRIBED AN OPIOID FOR PAIN If you have been prescribed an opioid (such as hydrocodone, oxycodone or morphine), it is critical to understand the possible side effects and risks of opioid pain medications. Even when taken as directed, opioids can have several side effects including: Tolerance, meaning you might need to take more of a medication for the same pain relief. Nausea, vomiting and/or constipation. Sleepiness, dizziness, dry mouth, confusion, depression or itching. Physical dependence, meaning you have withdrawal symptoms when a medication is stopped, can develop within a few days. KNOW YOUR RESPONSIBILITIES It is important to know exactly how much and how often to take the opioid pain medications you are prescribed. Never take opioids in higher amounts or more often than prescribed. Do not combine opioids with alcohol or other drugs that cause drowsiness, such as benzodiazepines, also known as benzos, including diazepam and alprazolam, muscle relaxants or sleep aids. Never sell or share prescription opioids. This is illegal. Store opioids in a secure place and out of reach of others (including children, family, friends and visitors). The last page of this document has been signed and retained as a CHART COPY. Signatures Patient Education Materials Monitored Anesthesia Care, Care After Spinal Cord Stimulator Implantation, Care After Medication Leaflets My discharge plan and instructions have been reviewed and explained to me and I,JACKY ELLIS understand my current condition and have read and understand these discharge instructions. I have received a written copy of the plan/instructions. If I have questions, I am aware that I should contact my doctor. 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 Family's history: negative. Review of Systems Cardiovascular: hx CP, systolic heart failure, AF, Aortic aneurysm, chf, ortic root dilitation, CAD, EF 30-45%, HTN. Gastrointestinal: obese. Genitourinary: CRF. Endocrine: DM. Musculoskeletal: Back pain. Integumentary: Negative. Neurologic: neuropathies, right sided weakness. Health Status Allergies: Allergic Reactions (Selected) Severity Not Documented Penicillin- Skin breakdown., Allergies (1) ActiveReaction penicillinSkin breakdown Current medications: (Selected) Inpatient Medications Ordered Betadine 10% topical solution: 17.5 mL, mL/hr, Topical (INT), PREOP pharm Bicitra: 30 mL, Oral, PREOP pharm Bolus LR 1000 mL: 1,000 mL, IV Bolus, PREOP pharm Cyklokapron IVPB: 2,000 mg, 20 mL, mL/hr, Topical (INT), PREOP pharm Decadron: 10 mg, 1 mL, IV Push, AsDirected Kefzol: 3 gram(s), 200 mL/hr, IV Piggyback, PREOP pharm LR 1000 mL: 20 mL/hr, Intravenous Lactated Ringers Infusion 1,000 mL: 20 mL/hr, Intravenous Naropin 25 mg + Toradol 15 mg + EPINEPHrine 1 mg/mL injectable solution 0.3 mg + morphine 2.5 mg...: 25 mg, 5 mL, mL/hr, Other, PREOP pharm Naropin 25 mg + Toradol 15 mg + EPINEPHrine 1 mg/mL injectable solution 0.3 mg + morphine 2.5 mg...: 25 mg, 5 mL, mL/hr, Other, PREOP pharm OxyCONTIN: 10 mg, 1 tab(s), Oral, PREOP pharm Pepcid IV: 20 mg, 2 mL, IV Push, PREOP pharm Zofran ( PACU ): 4 mg, 2 mL, IV Push, AsDirected, PRN: Nausea/Vomiting morphine ( PACU ): 2 mg, 1 mL, IV Push, q5min, PRN: Pain, scale 4-6 vancomycin: 1,750 mg, 35 mL, 306 mL/hr, IV Piggyback, PREOP pharm Prescriptions Prescribed Farxiga 10 mg oral tablet: 10 mg, 1 tab(s), Oral, qDay, 30 tab(s), 4 Refill(s) Xarelto 15 mg oral tablet: 15 mg, 1 tab(s), Oral, qHS, with food with evening meal, 30 tab(s), 11 Refill(s) acetaminophen-hydrocodone 325 mg-7.5 mg oral tablet: 1 tab(s), Oral, QID, for 30 day(s), PRN: for pain, 120 tab(s), 0 Refill(s) amiodarone 200 mg oral tablet: 200 mg, 1 tab(s), Oral, qDay, 90 tab(s), 3 Refill(s) carvedilol 25 mg oral tablet: 25 mg, 1 tab(s), Oral, BID, 180 tab(s), 3 Refill(s) Documented Medications Documented Vitamin C 500 mg oral tablet: 500 mg, 1 tab(s), Oral, qDay Vitamin D3 25 mcg (1000 intl units) oral capsule: 25 mcg, 1 cap(s), Oral, Daily, 0 Refill(s) atorvastatin 40 mg oral tablet: 40 mg, 1 tab(s), Oral, qDay bumetanide 1 mg oral tablet: TAKE 1 TABLET BY MOUTH EVERY DAY tiZANidine 4 mg oral tablet: TAKE 1 TABLET BY MOUTH THREE TIMES A DAY NEEDED, Medications (4) Active Scheduled: (0) Continuous: (2) Lactated Ringers 1,000 mL 1,000 mL, Intravenous, 20 mL/hr Lactated Ringers Infusion 1000 mL 1,000 mL, Intravenous, 20 mL/hr PRN: (2) morphine 2 mg/mL 1 mL syringe 2 mg 1 mL, IV Push, q5min ondansetron 2 mg/ 1 mL 2 mL INJ 4 mg 2 mL, IV Push, AsDirected Problem list: Medical Acute on chronic systolic heart failure / SNOMED CT 4771863233 / Confirmed Postoperative anemia / SNOMED CT 230062004 / Confirmed Aneurysm, thoracic aortic / SNOMED CT 5867861006 / Confirmed Aortic root dilation / SNOMED CT 737583232 / Confirmed OBESITY (BMI 30-39.9) / SNOMED CT 680243054 / Confirmed LOW HDL (UNDER 40) / SNOMED CT 023591452 / Confirmed CRF (CHRONIC RENAL FAILURE), STAGE 2 (MILD) / SNOMED CT 1708187898 / Confirmed CORONARY ARTERY DISEASE, OCCLUSIVE / SNOMED CT 67309117 / Confirmed FISTULA, CORONARY ARTERY / SNOMED CT 3281232171 / Confirmed Encounter for monitoring cardiotoxic drug therapy / SNOMED CT 804272271 / Confirmed Fatigue / SNOMED CT 506596973 / Confirmed HISTORY OF CHRONIC BACK PAIN / SNOMED CT 154132653 / Confirmed RECEIVED INFLUENZA VACCINATION AT HOSPITAL / SNOMED CT 506373602 / Confirmed HFrEF (heart failure with reduced ejection fraction) / SNOMED CT 4274652903 / Confirmed Hyperlipidemia / SNOMED CT 16694024 / Confirmed ELEVATED GLUCOSE / SNOMED CT 095274491 / Confirmed SCOLIOSIS/KYPHOSCOLIOSIS / SNOMED CT 868043514 / Confirmed Left-sided weakness/bilateral frontoparietal foci of acute ischemia / SNOMED CT 831459826 / Confirmed Lumbar radiculitis / SNOMED CT 1572223118 / Confirmed Newly diagnosed diabetes HgbA1C 6.9 / SNOMED CT 3469787121 / Confirmed Preop cardiovascular exam / SNOMED CT 321625011 / Confirmed PERSISTENT ATRIAL FIBRILLATION / SNOMED CT 8025230704 / Confirmed PNEUMOCOCCAL VACCINATION GIVEN / SNOMED CT 795909091 / Confirmed RIGHT BUNDLE-BRANCH BLOCK / SNOMED CT 53273337 / Confirmed Spinal stenosis, lumbar / SNOMED CT 33119945 / Confirmed Type II diabetes mellitus / SNOMED CT 996370985 / Confirmed, Active Problems (38) Acute chest pain Acute on chronic systolic heart failure AF (atrial fibrillation) Aneurysm, thoracic aortic Aortic root dilation Arthritis CHF (congestive heart failure) CORONARY ARTERY DISEASE, OCCLUSIVE CRF (CHRONIC RENAL FAILURE), STAGE 2 (MILD) ELEVATED GLUCOSE Encounter for monitoring cardiotoxic drug therapy Fatigue FISTULA, CORONARY ARTERY Glasses HFrEF (heart failure with reduced ejection fraction) Hiatal hernia HISTORY OF CHRONIC BACK PAIN HTN (hypertension) Hyperlipidemia Left-sided weakness/bilateral frontoparietal foci of acute ischemia LOW HDL (UNDER 40) Lumbar radiculitis Newly diagnosed diabetes HgbA1C 6.9 OBESITY (BMI 30-39.9) Osteoarthritis Pain management PERSISTENT ATRIAL FIBRILLATION PNEUMOCOCCAL VACCINATION GIVEN Postoperative anemia Preop cardiovascular exam RECEIVED INFLUENZA VACCINATION AT HOSPITAL RIGHT BUNDLE-BRANCH BLOCK Scoliosis SCOLIOSIS/KYPHOSCOLIOSIS Spinal stenosis Spinal stenosis, lumbar Type II diabetes mellitus Wrist fracture Histories Past Medical History: Resolved Elevated glucose (050516857): Resolved. Family History: Cancer Mother Brother Sister Father Procedure history: Echocardiogram ([id number]) on 09/29/2022 at 72 Years. Comments: 10/15/2022 14:01 Carlee Mcneil MA (ABR-OE) 1. Left ventricle: The cavity size is moderately increased. Wall thickness is moderately increased.Systolic function is moderately reduced. The estimated ejection fraction is 35-40%. Severe hypokinesis of the inferolateral and inferior myocardium. Diastolic dysfunction present but unable to assess severity. 2. Aortic valve: Thickening, consistent with sclerosis. There is mild, 1+ regurgitation. 3. Mitral valve: The annulus is moderately to severely calcified. There is moderate, 2+ regurgitation. 4. Left atrium: The atrium is moderately dilated. 5. Right ventricle: Systolic pressure is moderately increased. The RV systolic pressure by Doppler is 64 mm Hg. 6. Tricuspid valve: There is moderate, 2+ regurgitation. 7. Right atrium: The atrium is moderately dilated. The estimated right atrial pressure is 15 mm Hg. Umbilical hernia, Laparoscopic converted to open primary umbilical hernia repair with small bowel resection ([id number]) on 08/16/2022 at 72 Years. Comments: 09/01/2022 15:47 EDT - Cousins, Patience FUR IRONER Laparoscopic converted to open primary umbilical hernia repair with small bowel resection PM Inj Spine L/S With Imaging SN on 06/29/2022 at 71 Years. Comments: 06/29/2022 8:49 SWATHI Carlos auto-populated from documented surgical case History of reverse left total shoulder arthroplasty ([id number]) in the month of 12/2021 at 71 Years. Comments: 05/13/2022 14:[address] [facility] Cardioversion ([id number]) on 06/16/[address] angiography of chest with contrast ([id number]) on 06/04/2021 at 70 Years. Echocardiogram ([id number]) on 11/21/2020 at 70 Years. Comments: 03/15/2021 12:17 Mere Singh LPN (11/21/20) Summary: 1. Left ventricle: The cavity size is increased. Systolic function is mildly reduced. The estimatedejection fraction is 45-50%. Mild diffuse hypokinesis. Diastolic dysfunction is present. 2. Aortic valve: There is mild stenosis. There is mild regurgitation. 3. Mitral valve: The annulus is calcified. There is mild to moderate regurgitation. 4. Left atrium: The atrium is mildly dilated. 5. Right ventricle: Systolic function is reduced. The RV systolic pressure by Doppler is 54 mm Hg. 6. Right atrium: The atrium is mildly dilated. The estimated right atrial pressure is 3 mm Hg. 7. Pericardium, extracardiac: There is a right pleural effusion. Aortic valve replacement and aortoplasty ([id number]) on 11/19/2020 at 70 Years. Comments: 03/15/2021 12:17 Mere Singh LPN REPAIR ASCENDING AORTIC DISSECTION USING HEMASHIELD 34 MM WOVEN GRAFT, INSERTION TEMPORARY PACING WIRES Cardioversion ([id number]) on 01/26/2019 at 68 Years. Comments: 05/19/2019 9:01 Carlee Diaz MA (ABR-OE) successful cardioversion to normal sinus rhythm Stress testing using pharmacologic-induced stress ([id number]) on 10/20/2018 at 68 Years. Comments: 05/19/2019 9:00 Carlee Diaz MA (ABR-OE) EKG portion of Lexiscan stress test is negative for inducible ischemia 1. Reversible defect in the inferior, inferolateral, lateral and anterolateral bhandari suggesting ischemia in this area. 2. Mildly dilated LEFT ventricle with an ejection fraction of 26%. Wall motion as above. Cardiac catheterization ([id number]) on 10/18/2018 at 68 Years. Comments: 05/19/2019 8:57 Carlee Diaz MA (ABR-OE) SUMMARY: 1. Right coronary: Proximal vessel lesion: There is a 100% stenosis. Appearance of POLYETHYLENE COMBINER with small jump collaterals to mid RCA. RPDA fills via collaterals from the LAD. 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 IMPRESSIONS: 1. Single vessel coronary artery disease, predominantly involving the RCA. 2. The proximal lesion has appearance of chronic total occlusion with small jump collaterals to midRCA. There are collaterals filling the RPDA from left anterior descending artery. 3. 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 4. Case discussed with CT surgery due to incidental finding of LAD fistula to PA. Will pursue stress test to evaluate for anterior wall ischemia possibly related to shunt from proximal LAD fistula Hernia repair ([id number]). Colonoscopy ([id number]). Social History Social & Psychosocial Habits Alcohol 11/25/2022 Use: Past Substance Abuse 11/30/2022 Use: Past Type: Marijuana Frequency: 1-2 times per week Comment: has a medical card for this uses gummies and ointments - 05/13/2022 14:04 - SWATHI Jones Tobacco 11/25/2022 Tobacco Use: Never (less than 100 in l Home/Environment 11/25/2022 Domestic Concerns None Living situation: Home/Independent Nutrition/Health 11/25/2022 Type of diet: Regular Appetite Excellent Eating Difficulties None 11/25/2022 Caffeine intake amount: 2 cups per week . Physical Examination Vital Signs 11/30/2022 7:40 EDT Heart Rate Monitored 111 bpm bpm Respiratory Rate - Anes 12 br/min br/min Systolic Blood Pressure Non-Invasive 95 mmHg mmHg Diastolic Blood Pressure Non-Invasive 71 mmHg mmHg 11/30/2022 7:38 EDT Systolic Blood Pressure Non-Invasive 102 mmHg mmHg Diastolic Blood Pressure Non-Invasive 74 mmHg mmHg 11/30/2022 7:35 EDT Respiratory Rate - Anes 0 br/min br/min 11/30/2022 7:30 EDT Heart Rate Monitored 68 bpm bpm Respiratory Rate - Anes 0 br/min br/min Systolic Blood Pressure Non-Invasive 109 mmHg mmHg Diastolic Blood Pressure Non-Invasive 81 mmHg mmHg 11/30/2022 7:27 EDT Systolic Blood Pressure Non-Invasive 135 mmHg mmHg Diastolic Blood Pressure Non-Invasive 91 mmHg mmHg 11/30/2022 6:48 EDT Temperature Temporal Artery 37.4 DegC Apical Heart Rate 63 bpm Respiratory Rate 14 br/min Systolic Blood Pressure Non-Invasive 111 mmHg Diastolic Blood Pressure Non-Invasive 76 mmHg Vital Signs(last 24 hrs) Last Charted Heart Rate [id number] bpm (NOV 30 07:40) Resp Rate 14 br/min (NOV 30 06:48) SBP95 mmHg (NOV 30 07:40) DBP71 mmHg (NOV 30 07:40) Measurements from flowsheet : Measurements 11/30/2022 6:48 EDT Height 182.88 cm Admission Weight 104.55 kg Adams Body Weight 77.60 kg Admission Body Mass Index 31.26 m2 Pain assessment: Pain Assessment 11/30/2022 6:48 EDT Primary Pain Intensity 4 Pain Scale Type 0-10 Pain scale . General: Alert and oriented. Airway: Normal temporomandibular joint mobility. Mallampati classification: III (soft palate, base of uvula visible). Head: Normocephalic. Dentition Evaluation: Own teeth, Dentures, partial plate. Neck: Supple. Respiratory: diminished. Cardiovascular: Normal rate. Heart Sounds: Normal. Gastrointestinal: Soft. Musculoskeletal Normal range of motion. Integumentary: Intact. Neurologic: Alert, Oriented. Review / Management Results review: No qualifying data available , Lab results 11/30/2022 7:43 EDT SN - Cul - Culture Type No Specimen per Surgeon 11/30/2022 7:40 EDT Heart Rate Monitored 111 bpm bpm Respiratory Rate - Anes 12 br/min br/min Systolic Blood Pressure Non-Invasive 95 mmHg mmHg Diastolic Blood Pressure Non-Invasive 71 mmHg mmHg Oxygen Saturation 98 % % 11/30/2022 7:38 EDT Systolic Blood Pressure Non-Invasive 102 mmHg mmHg Diastolic Blood Pressure Non-Invasive 74 mmHg mmHg 11/30/2022 7:35 EDT Respiratory Rate - Anes 0 br/min br/min Set Rate Anes 8 br/min br/min 11/30/2022 7:30 EDT Heart Rate Monitored 68 bpm bpm Respiratory Rate - Anes 0 br/min br/min Systolic Blood Pressure Non-Invasive 109 mmHg mmHg Diastolic Blood Pressure Non-Invasive 81 mmHg mmHg Oxygen Saturation 99 % % 11/30/2022 7:27 EDT Systolic Blood Pressure Non-Invasive 135 mmHg mmHg Diastolic Blood Pressure Non-Invasive 91 mmHg mmHg 11/30/2022 7:22 EDT SN - CAt - Case Attendee SN - CAt - Case Attendee SN - CAt - Case Attendee SN - CAt - Case Attendee SN - CAt - Case Attendee SN - CAt - Case Attendee SN - CAt - Case Attendee SN - CAt - Case Attendee SN - CAt - Case Attendee SN - CAt - Case Attendee SN - CAt - Role Performed Primary Surgeon SN - CAt - Role Performed Operator Receptionist 1 SN - CAt - Role Performed Scrub 1 SN - CAt - Role Performed SHEET ROCK HANGER SN - CAt - Role Performed Convict Guard 11/30/2022 7:04 EDT SN - Preop - CTm Pt in SDS Room 11/30/2022 6:34 SN - Preop - CTm Pt Ready for OR/Proced 11/30/2022 7:04 11/30/2022 7:04 EDT Lactated Ringers Injection Begin Bag 1,000 mL mL 11/30/2022 7:03 EDT Continuous IV Infusions LR Hand Right 11/30/2022 20 gauge Peripheral IV Activity: Insert new site Peripheral IV Site Condition: No complications Peripheral IV Number of Attempts: 1 11/30/2022 6:48 EDT Height 182.88 cm Admission Weight 104.55 kg Adams Body Weight 77.60 kg Admission Body Mass Index 31.26 m2 Temperature Temporal Artery 37.4 DegC Apical Heart Rate 63 bpm Respiratory Rate 14 br/min Systolic Blood Pressure Non-Invasive 111 mmHg Diastolic Blood Pressure Non-Invasive 76 mmHg Primary Pain Intensity 4 Pain Scale Type 0-10 Pain scale Heart Sounds ICU S1S2 Heart Rhythm Irregular Respirations Unlabored Respiratory Pattern Regular All Lobes Breath Sounds Clear Cough None Oxygen Therapy Room air Oxygen Saturation 95 % Abdomen Description Non-distended, Soft Bowel Sounds All Quadrants Present Urinary Elimination Voiding, no difficulties Skin Temperature Warm Skin Description [place], Normal for ethnicity, Dry Skin Integrity Not intact Skin Moisture General Dry IV Present Present Neurological Symptoms Patient denies Characteristics of Speech Clear Level of Consciousness Alert Strength All Extremities Strong Sensation All Extremities Intact Affect/Behavior Appropriate Orientation Oriented x 4 Allergies Yes 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 On No Consent Form Signed Yes Patient Dressed In Hospital gown Pre-op Preparation Dentures, full removed CHG Skin Prep Completed for Eligible Surgery History & Physical Update On Chart Yes History & Physical On Chart Yes Obstructive Sleep Apnea Assess Completed Yes Orientation Assessment Oriented x 4 Assistive Device None Activity Status ADL Awake NPO Status Maintained Standard Safety ID band on, Allergy Band on, Call device within reach, Bed in low position, Wheels locked, Safety level maintained Allergy Band on and Verified Yes Patient ID Band on and Verified Yes Implants Verified Yes Pacemaker/AICD Verified Yes Site Verified by Patient/Family Yes Blood Consent Signed Yes Last Fluid Intake 11/29/2022 16:00 Last Food Intake 11/29/2022 16:00 Last Void 11/30/2022 6:52 Patient Cleared for Surgery By XU KOWALSKI MD Cardiac Clearance For Surgery By XU KOWALSKI MD 11/30/2022 6:47 EDT Designated Person #1 We May Share PHI Artie Bernard [phone] Designated Person #1 Relationship Friend Designated Person #2 We May Share PHI francesca james [phone] Designated Person #2 Relationship Friend Additional Designated Person Share PHI Additional Designated Person Share PHI Privacy Restrictions Requested None Status N/A Sensory Deficits None Sleep Apnea Snore No Sleep Apnea Tired Yes Sleep Apnea Obstruction No Sleep Apnea Pressure Yes Sleep Apnea BMI No Sleep Apnea Age Yes Sleep Apnea Neck No Sleep Apnea Gender Yes Sleep Apnea Score 4 Diagnosed With Sleep Apnea No Advanced Directives Unable to obtain Infectious Disease Symptoms Patient states no symptoms Infectious Disease Recent Exposure No Alcohol and Drug Use No Employee of Institutional Living No Health Care Employee No History of Exposure to TB No History of Positive Chest X-Ray for TB No History of Positive TB Skin Test No Homeless No Known Immunosuppression No Recent Immigrant No Resident of Institutional Living No Bloody Sputum No Fatigue No Fever No Loss of Appetite No Night Sweats No Persistent Cough > 3 Weeks No Weight Loss No Patient Aware Date/Time Of Surgery Yes Pre-Op Patient Education NPO after midnight, No jewelry, Responsible Alliance Party, Aware of surgery location, Pre-op education done, 1 bottle CHG wash with instructions given, Instructed to take ordered medications, SSI prevention handout given SN - Preprocedure Comments Spoke with patient, Verbalizes/Nonverbally indicates understanding, Other: CARVEDILOL, AMIODORONE Barriers to Learning None evident Teaching Method Explanation Preferred Spoken Language Lebanese Preferred Written Language Lebanese Teaching Evaluation No further teaching needed Safety Brochure Information Reviewed Unable to complete [facility] Video Viewed No Information Given by Patient Patient's Current Physicians Patient's Current Physicians Discharge To, Anticipated Home independently Prev Test Positive/Diagnosis w/COVID-19 No Current Quarantine/Isolated any Illness No Any Contact with Sick Animals/Birds No Traveled Anywhere in Last 30 Days No Lost Weight Unintentionally Recently No Eat Poorly Due to Decreased Appetite No Total MST Score 0 N/A Personal Devices, Patient Valuables Assistive devices, Dentures, lower, Dentures, partial plate, Dentures, upper Anesthesia/Transfusions Prior anesthesia Admission Note-Nursing Same Day Patient History . Assessment and Plan [place] [employer] (ASA) physical status classification: Class IV. Anesthetic Preoperative Plan Premedication: intravenous. Anesthetic technique: General. Induction: intravenously. Maintenance airway: Oral endotracheal tube. Postoperative pain management: Per surgeon. Risks discussed: nausea, vomiting, sore throat. Informed consent: signed by patient. Digitally Signed by TOVA ALMANZA on 11/30/2022 07:55 AM [facility]2023 Note ORIGINAL Images acquired, not reported on this accession number. [facility]2023 Note ORIGINAL Images acquired, not reported on this accession number.[place] [id number] Hospital Discharge instructions Patient Education 10/26/2022 09:30:34 Spinal Cord Stimulator Implantation, Care After Spinal Cord Stimulator Implant, Care After This sheet gives you information about how to care for yourself after your procedure. Your health care provider may also give you more specific instructions. If you have problems or questions, contact your health care provider. What can I expect after the procedure? After the procedure, it is common to have: Mild pain, bruising, and swelling. Headaches. Soreness in the back. Follow these instructions at home: Incision care Follow instructions from your health care provider about how to take care of your incisions. Make sure you: ?Wash your hands with soap and water before you change your bandages (dressings). If soap and waterare not available, use hand core mounter. ?Change your dressings as told by your health care provider. ?Leave stitches (sutures), skin glue, or adhesive strips in place. These skin closures may need to stay in place for 2 weeks or longer. If adhesive strip edges start to loosen and curl up, you may trim the loose edges. Do not remove adhesive strips completely unless your health care provider tells you to do that. Check your incision areas every day for signs of infection. Check for: ?Redness, more swelling, or more pain. ?More fluid or blood. ?Warmth. ?Pus or a bad smell. Activity Ask your health care provider what activities are safe for you during recovery. Do not do any of the following until your health care provider approves: ?Drive. ?Activity that requires a lot of energy, including exercise and sports. ?Lift anything that is heavier than 5 lb (2.3 kg), or the limit that you are told. ?Engage in sexual activity. ?Lift your arms above your head. ?Sleep on your stomach, if your device was placed in your abdomen. ?Bend, twist, stretch, or reach for things. Bathing Do not take baths, swim, or use a hot tub until your health care provider approves. Ask your healthcare provider if you may take showers. You may only be allowed to take sponge baths. Safety Devices that sends out wireless signals may affect your stimulator. If directed by your health careprovider, avoid the following: ?MRI and ultrasound tests. ?Metal detectors. ?Anti-theft devices. ?Generators or power lines. Always carry your device ID card with you. Tell all health care providers who care for you that you have a spinal cord stimulator. This is important information that could affect the medical treatment that you receive. General instructions Work with your health care provider to adjust your settings as needed for pain control. Adjusting settings may take some time. Most stimulators can be controlled with a remote. Take iipc-fkz-zuorxjr and prescription medicines only as told by your health care provider. Do not use any products that contain nicotine or tobacco, such as cigarettes and e-cigarettes. If you need help quitting, ask your health care provider. Drink enough fluid to keep your urine pale yellow. Keep all follow-up visits as told by your health care provider. This is important. Contact a health care provider if you have: A fever. Severe pain, and medicines do not help. More fluid or blood coming from your incisions. Headaches that do not go away. Get help right away if: You have redness, more swelling, or more pain around your incisions. Your incision area feels warm to the touch. You have pus or a bad smell coming from your incision area. You have chest pain or problems breathing. You have sudden and severe back pain. You have weakness or sudden muscle tightening (spasms) in your legs. You are not able to control when you urinate or have a bowel movement (incontinence). Summary After implantation of a spinal cord stimulator, mild pain, muscle soreness, headaches, and bruisingare common. Follow instructions from your health care provider about incision care, bathing, medicines, and activity. Work with your health care provider to adjust your settings as needed for pain control. Adjusting settings may take some time. Most stimulators can be controlled with a remote. This information is not intended to replace advice given to you by your health care provider. Make sure you discuss any questions you have with your health care provider. Document Released: 05/12/2018 Document Revised: 07/20/2019 Document Reviewed: 05/12/2018 [employer] Patient Education 2020 [employer] 10/26/2022 09:30:31 Spinal Cord Stimulation Trial Information Spinal Cord Stimulation Trial Information A spinal cord stimulation trial is a test to see whether a spinal cord stimulator reduces your pain. A spinal cord stimulator is a small device that is inserted (implanted) in your back. The stimulator has small wires (leads) that connect it to your spinal cord. The stimulator sends electrical pulses through the leads to the spinal cord. This can relieve pain. Settings for the stimulator can be adjusted with a remote device to find the best pain control. Your health care provider may suggest a spinal cord stimulation trial if other treatments for long-lasting (chronic) pain have not worked for you. Spinal cord stimulation may be used to manage pain that is caused by: Coronary artery disease or peripheral vascular disease. Failed back surgery. Phantom limb sensation. Peripheral neuropathy. Complex regional pain syndrome. Other syndromes that involve chronic pain. For the trial, the stimulator is attached to your back instead of inserted under the skin. A trial period is usually 3 5 days, but this can vary among health care providers. After your trial period, you and your health care provider will discuss whether a permanent spinal cord stimulator is an option for you. The permanent stimulator may be an option depending on: Whether the stimulator reduces your pain during the trial. Whether the stimulator fits into your lifestyle. Whether the cost of the stimulator is covered by your insurance. What are the risks? Generally, a spinal cord stimulation trial is safe. However, problems can occur, including: Bleeding or pain at the insertion site of the leads. Infection at the insertion site or around the leads. Allergic reactions to medicines, devices, or dyes. Damage to the skin, nerves, back muscles, or spinal cord where the leads are placed. Inability to move the legs (paralysis). Numbness in the legs. Inability to control when you urinate or have a bowel movement (incontinence). Spinal fluid leakage. How is a spinal cord stimulator placed for a trial? For a trial period, the stimulator is placed on your skin, not under it. Only the leads that connect the stimulator to the spinal cord are implanted under your skin. The exact location of the stimulator depends on where you have pain. There are two types of surgery for implanting the leads: Noninvasive surgery. In this type of surgery, a small incision is made and needles are used to place the leads under your skin. Open surgery. In this type of surgery, a larger incision is made, and the leads are implanted directly into your back. How should I care for myself during the trial period? Activity Return to your normal activities as told by your health care provider. Ask your health care provider what activities are safe for you. Do not lift anything that is heavier than 10 lb (4.5 kg), or the limit that you are told. General instructions Follow your health care provider's specific instructions about how to take care of your spinal cordstimulator and your incision. Make sure you write down the following information so that you can share this information with yourhealth care provider: ?Your responses to the stimulator. Describe these as told by your health care provider. ?Your pain level throughout the day. ?The amount and kind of pain medicine that you take. Take uuml-gbh-fwwhxdb and prescription medicines only as told by your health care provider. Do not take baths, swim, or use a hot tub until your health care provider approves. Tell all health care providers who provide care for you that you have a spinal cord stimulator. This is important information that could affect the medical treatment that you receive. Keep all follow-up visits as told by your health care provider. This is important. When should I seek medical care? During the trial, seek medical care if: You have redness, swelling, or pain around your incision. You have fluid or blood coming from your incision. Your incision feels warm to the touch. You have pus or a bad smell coming from your incision. The bandage (dressing) that covers your incision comes off. Get help right away if: Your pain gets worse. The stimulator leads come out. You develop numbness or weakness in your legs, or you have difficulty walking. You have problems urinating or having a bowel movement. You have a fever. You have symptoms that last for more than 2 3 days. Your symptoms suddenly get worse. Summary A spinal cord stimulator is a small device that sends electrical pulses to your spinal cord. This can relieve pain caused by many different health conditions. Before a permanent stimulator is placed, you will have a trial using a temporary stimulator that isnot implanted under your skin. This helps determine if a stimulator will reduce your pain. For the trial, only the leads that connect the stimulator to the spinal cord are implanted under your skin. During the trial period, make sure you write down information about your pain and your responses tothe stimulator so that you can share this information with your health care provider. Keep all follow-up visits as told by your health care provider. This is important. Contact your health care provider if you have symptoms that indicate a problem. This information is not intended to replace advice given to you by your health care provider. Make sure you discuss any questions you have with your health care provider. Document Released: 07/14/2011 Document Revised: 05/03/2019 Document Reviewed: 05/03/2019 [employer] Patient Education 2019 [employer]. [facility] 2023 Summary of episode note Discharge Instructions Thank you for allowing [facility] to assist you with your healthcare needs. The following is importantdischarge information regarding your hospital visit. Your Care Team HODA GRAYSON MD Your Diagnosis Lumbar radiculitis Spinal stenosis, lumbar What to do next Scheduled Follow-Up Appointments Appointment Type When With Where Contact Information OV 11/02/2022 11:30 AM [facility] Allergies Farxiga (light headed) penicillin (Skin breakdown) Medications Please ask your primary doctor or pharmacist before taking any other medication not listed, including over the counter drugs, herbal medications, vitamins and or supplements as they may interact withyour home medications. What How Much When Instructions Last Dose Unchanged amiodarone (amiodarone 200 mg oral tablet) 1 tab(s) by mouth Once a day Unchanged ascorbic acid (Vitamin C 500 mg oral tablet) 1 tab(s) by mouth Once a day Unchanged atorvastatin (atorvastatin 40 mg oral tablet) 1 tab(s) by mouth Once a day Unchanged carvedilol (carvedilol 25 mg oral tablet) 1 tab(s) by mouth Two (2) times a day Unchanged cholecalciferol (Vitamin D3 25 mcg (1000 intl units) oral capsule) 1 cap by mouth Every day Unchanged dapagliflozin (Farxiga 10 mg oral tablet) 1 tab(s) by mouth Once a day Unchanged rivaroxaban (Xarelto 15 mg oral tablet) 1 tab(s) by mouth Daily at bedtime with food with evening meal Please take this list to your next doctor s visit. Bring all medications you take, including over the counter medications, herbals and other supplements with you to your doctor s visit. Patients and families are reminded to discard old lists and to update any records with all medication providers or retail pharmacies. Education Materials Spinal Cord Stimulator Implant, Care After This sheet gives you information about how to care for yourself after your procedure. Your health care provider may also give you more specific instructions. If you have problems or questions, contact your health care provider. What can I expect after the procedure? After the procedure, it is common to have: Mild pain, bruising, and swelling. Headaches. Soreness in the back. Follow these instructions at home: Incision care Follow instructions from your health care provider about how to take care of your incisions. Make sure you: ? Wash your hands with soap and water before you change your bandages (dressings). If soap and water are not available, use hand core mounter. ? Change your dressings as told by your health care provider. ? Leave stitches (sutures), skin glue, or adhesive strips in place. These skin closures may need to stay in place for 2 weeks or longer. If adhesive strip edges start to loosen and curl up, you may trim the loose edges. Do not remove adhesive strips completely unless your health care provider tells you to do that. Check your incision areas every day for signs of infection. Check for: ? Redness, more swelling, or more pain. ? More fluid or blood. ? Warmth. ? Pus or a bad smell. Activity Ask your health care provider what activities are safe for you during recovery. Do not do any of the following until your health care provider approves: ? Drive. ? Activity that requires a lot of energy, including exercise and sports. ? Lift anything that is heavier than 5 lb (2.3 kg), or the limit that you are told. ? Engage in sexual activity. ? Lift your arms above your head. ? Sleep on your stomach, if your device was placed in your abdomen. ? Bend, twist, stretch, or reach for things. Bathing Do not take baths, swim, or use a hot tub until your health care provider approves. Ask your healthcare provider if you may take showers. You may only be allowed to take sponge baths. Safety Devices that sends out wireless signals may affect your stimulator. If directed by your health careprovider, avoid the following: ? MRI and ultrasound tests. ? Metal detectors. ? Anti-theft devices. ? Generators or power lines. Always carry your device ID card with you. Tell all health care providers who care for you that you have a spinal cord stimulator. This is important information that could affect the medical treatment that you receive. General instructions Work with your health care provider to adjust your settings as needed for pain control. Adjusting settings may take some time. Most stimulators can be controlled with a remote. Take whas-ffp-rtbdyaq and prescription medicines only as told by your health care provider. Do not use any products that contain nicotine or tobacco, such as cigarettes and e-cigarettes. If you need help quitting, ask your health care provider. Drink enough fluid to keep your urine pale yellow. Keep all follow-up visits as told by your health care provider. This is important. Contact a health care provider if you have: A fever. Severe pain, and medicines do not help. More fluid or blood coming from your incisions. Headaches that do not go away. Get help right away if: You have redness, more swelling, or more pain around your incisions. Your incision area feels warm to the touch. You have pus or a bad smell coming from your incision area. You have chest pain or problems breathing. You have sudden and severe back pain. You have weakness or sudden muscle tightening (spasms) in your legs. You are not able to control when you urinate or have a bowel movement (incontinence). Summary After implantation of a spinal cord stimulator, mild pain, muscle soreness, headaches, and bruisingare common. Follow instructions from your health care provider about incision care, bathing, medicines, and activity. Work with your health care provider to adjust your settings as needed for pain control. Adjusting settings may take some time. Most stimulators can be controlled with a remote. This information is not intended to replace advice given to you by your health care provider. Make sure you discuss any questions you have with your health care provider. Document Released: 05/12/2018 Document Revised: 07/20/2019 Document Reviewed: 05/12/2018 Else[employer] Patient Education 2020 [employer] Spinal Cord Stimulation Trial Information A spinal cord stimulation trial is a test to see whether a spinal cord stimulator reduces your pain. A spinal cord stimulator is a small device that is inserted (implanted) in your back. The stimulator has small wires (leads) that connect it to your spinal cord. The stimulator sends electrical pulses through the leads to the spinal cord. This can relieve pain. Settings for the stimulator can be adjusted with a remote device to find the best pain control. Your health care provider may suggest a spinal cord stimulation trial if other treatments for long-lasting (chronic) pain have not worked for you. Spinal cord stimulation may be used to manage pain that is caused by: Coronary artery disease or peripheral vascular disease. Failed back surgery. Phantom limb sensation. Peripheral neuropathy. Complex regional pain syndrome. Other syndromes that involve chronic pain. For the trial, the stimulator is attached to your back instead of inserted under the skin. A trial period is usually 3 5 days, but this can vary among health care providers. After your trial period, you and your health care provider will discuss whether a permanent spinal cord stimulator is an option for you. The permanent stimulator may be an option depending on: Whether the stimulator reduces your pain during the trial. Whether the stimulator fits into your lifestyle. Whether the cost of the stimulator is covered by your insurance. What are the risks? Generally, a spinal cord stimulation trial is safe. However, problems can occur, including: Bleeding or pain at the insertion site of the leads. Infection at the insertion site or around the leads. Allergic reactions to medicines, devices, or dyes. Damage to the skin, nerves, back muscles, or spinal cord where the leads are placed. Inability to move the legs (paralysis). Numbness in the legs. Inability to control when you urinate or have a bowel movement (incontinence). Spinal fluid leakage. How is a spinal cord stimulator placed for a trial? For a trial period, the stimulator is placed on your skin, not under it. Only the leads that connect the stimulator to the spinal cord are implanted under your skin. The exact location of the stimulator depends on where you have pain. There are two types of surgery for implanting the leads: Noninvasive surgery. In this type of surgery, a small incision is made and needles are used to place the leads under your skin. Open surgery. In this type of surgery, a larger incision is made, and the leads are implanted directly into your back. How should I care for myself during the trial period? Activity Return to your normal activities as told by your health care provider. Ask your health care provider what activities are safe for you. Do not lift anything that is heavier than 10 lb (4.5 kg), or the limit that you are told. General instructions Follow your health care provider's specific instructions about how to take care of your spinal cordstimulator and your incision. Make sure you write down the following information so that you can share this information with yourhealth care provider: ? Your responses to the stimulator. Describe these as told by your health care provider. ? Your pain level throughout the day. ? The amount and kind of pain medicine that you take. Take icvt-efh-okrvujr and prescription medicines only as told by your health care provider. Do not take baths, swim, or use a hot tub until your health care provider approves. Tell all health care providers who provide care for you that you have a spinal cord stimulator. This is important information that could affect the medical treatment that you receive. Keep all follow-up visits as told by your health care provider. This is important. When should I seek medical care? During the trial, seek medical care if: You have redness, swelling, or pain around your incision. You have fluid or blood coming from your incision. Your incision feels warm to the touch. You have pus or a bad smell coming from your incision. The bandage (dressing) that covers your incision comes off. Get help right away if: Your pain gets worse. The stimulator leads come out. You develop numbness or weakness in your legs, or you have difficulty walking. You have problems urinating or having a bowel movement. You have a fever. You have symptoms that last for more than 2 3 days. Your symptoms suddenly get worse. Summary A spinal cord stimulator is a small device that sends electrical pulses to your spinal cord. This can relieve pain caused by many different health conditions. Before a permanent stimulator is placed, you will have a trial using a temporary stimulator that isnot implanted under your skin. This helps determine if a stimulator will reduce your pain. For the trial, only the leads that connect the stimulator to the spinal cord are implanted under your skin. During the trial period, make sure you write down information about your pain and your responses tothe stimulator so that you can share this information with your health care provider. Keep all follow-up visits as told by your health care provider. This is important. Contact your health care provider if you have symptoms that indicate a problem. This information is not intended to replace advice given to you by your health care provider. Make sure you discuss any questions you have with your health care provider. Document Released: 07/14/2011 Document Revised: 05/03/2019 Document Reviewed: 05/03/2019 Elsevier Patient Education 2019 [employer] Additional Information VACCINATE! IT SAVES LIVES! Members of the community who have not yet received the COVID-19 vaccine and would like to receive it can visit one of [facility] vaccine clinics. There are many vaccine clinic locations within the [facility]. For locations and available times, please visit [email or web address].[place].gov/. It is important to note that some COVID mobile vaccine clinics are held outdoors and may be canceled in rainy or stormy conditions. To learn more about pediatric vaccinations (ages 5-11), we invite you to visit the [facility] webpage. https://www.[employer].org/pages/3220-Irlun-Rfubgdeznfx-Rjisobkydn-Ljajh-Tdc stions.htmlTo learn more about the COVID-19 vaccine, we invite you to visit the CDC website for a list of frequently asked questions.https://www.cdc.gov/coronavirus/2019-ncov/vaccines/faq.html [employer] Patient Portal Access Instructions: Stay connected with your healthcare team and access your personal medical information anytime with the [employer] Patient Portal. Please follow the directions below to create your [employer] account: 1.Access the email account you provided upon registration to the hospital/physician office.2.Look for an invitation email from [facility].3.Open the email and access the invitation link: AcceptInvitation to StarlaAcrolinx.4.Fill in the required crockett to create your account. To access your account, visit [email or web address]. Click the blue button labeled Access Patient Portal and then log in with the username and password that you created in the steps above. You will be able to view your test results, lab results, a summary of your visits, upcoming appointments and more. There is also a convenient messaging option where you can send secure messages to your star hughes. In addition, you will have the ability to download any documents or summaries to your computer and/or send the information securely to a physician. Remember that your healthcare information is confidential, so carefully consider who you will allowto register on the [facility] for access to your information. You can also access the [facility] on the [place] [facility] karie. Simply click on Patient Portal and then log into your account. If you would like to receive a full copy of your medical records, please contact the [facility] Medical Records Department by calling [phone], Wednesday through Wednesday between 8 a.m. and 4:30 p.m. HOW TO SAFELY DISPOSE OF PRESCRIPTION MEDICATIONS Please use one of the following methods to safely dispose of your unused medications. 1.Use a drug disposal kit: the drug disposal pouch allows you to safely discard your old and unuseddrugs. Ask your nurse to give you one when you are discharged.2.Visit a local take-back location: Many local pharmacies and police departments have programs that collect old and unwanted prescriptiondrugs. Call your local pharmacy or go to http://Mapflow.Meddik/7D4Nj6s to find one close to you.3.Make use of household items: Use cat litter or old coffee grounds to dispose medications if other options arenot available. Mix your drugs with these household products, seal them in an airtight container andthrow it into the garbage. Call [facility]: [phone] to be sure your drugs can be disposed of in this way. Some medicines may require a different approach.4.Never flush your medications down the toilet. IF YOU HAVE BEEN PRESCRIBED AN OPIOID FOR PAIN If you have been prescribed an opioid (such as hydrocodone, oxycodone or morphine), it is critical to understand the possible side effects and risks of opioid pain medications. Even when taken as directed, opioids can have several side effects including: Tolerance, meaning you might need to take more of a medication for the same pain relief. Nausea, vomiting and/or constipation. Sleepiness, dizziness, dry mouth, confusion, depression or itching. Physical dependence, meaning you have withdrawal symptoms when a medication is stopped, can develop within a few days. KNOW YOUR RESPONSIBILITIES It is important to know exactly how much and how often to take the opioid pain medications you are prescribed. Never take opioids in higher amounts or more often than prescribed. Do not combine opioids with alcohol or other drugs that cause drowsiness, such as benzodiazepines, also known as benzos, including diazepam and alprazolam, muscle relaxants or sleep aids. Never sell or share prescription opioids. This is illegal. Store opioids in a secure place and out of reach of others (including children, family, friends and visitors). The last page of this document has been signed and retained as a CHART COPY. Signatures Patient Education Materials Spinal Cord Stimulator Implantation, Care After Spinal Cord Stimulation Trial Information Medication Leaflets My discharge plan and instructions have been reviewed and explained to me and I,HERNANDEZ JACKY A understand my current condition and have read and understand these discharge instructions. I have received a written copy of the plan/instructions. If I have questions, I am aware that I should contact my doctor. 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 Assessment Postanesthesia assessment Vitals: Vital signs from flowsheet : Vital Signs 10/26/2022 9:10 EDT Heart Rate Monitored 73 bpm bpm Respiratory Rate - Anes 18 br/min br/min Systolic Blood Pressure Non-Invasive 131 mmHg mmHg Diastolic Blood Pressure Non-Invasive 88 mmHg mmHg 10/26/2022 9:05 EDT Heart Rate Monitored 65 bpm bpm Respiratory Rate - Anes 15 br/min br/min Systolic Blood Pressure Non-Invasive 138 mmHg mmHg Diastolic Blood Pressure Non-Invasive 92 mmHg mmHg 10/26/2022 9:00 EDT Heart Rate Monitored 69 bpm bpm Respiratory Rate - Anes 15 br/min br/min Systolic Blood Pressure Non-Invasive 135 mmHg mmHg Diastolic Blood Pressure Non-Invasive 96 mmHg mmHg 10/26/2022 8:59 EDT Systolic Blood Pressure Non-Invasive 130 mmHg mmHg Diastolic Blood Pressure Non-Invasive 98 mmHg mmHg 10/26/2022 7:42 EDT Temperature Temporal Artery 36.4 DegC Apical Heart Rate 68 bpm Respiratory Rate 17 br/min Systolic Blood Pressure Non-Invasive 134 mmHg Diastolic Blood Pressure Non-Invasive 93 mmHg HI , Measurements from flowsheet . Mental status: alert & oriented x 4. Respiratory function: respirations are non-labored. Respiratory support: none. CV function: Normal rate. Cardiovascular support: none. Pain. Nausea status: denies nausea. Postoperative hydration status: within normal limits. Digitally Signed by KEANU REBOLLAR on 10/26/2022 09:14 AM [facility]2023 Anesthesiology Consult note Patient: JACKY ELLIS Age: 72 years Sex: Male : 1950 Associated Diagnoses: None Author: KEANU REBOLLAR Preoperative Information Time of last food or liquid consumption: 10/26/2022 00:00:00 Anesthesia history Patient's history: negative. Family's history: negative. Health Status Allergies: Allergic Reactions (Selected) Severity Not Documented Penicillin- Skin breakdown. Nonallergic Reactions (Selected) Severity Not Documented Farxiga- Light headed., Allergies (2) ActiveReaction Farxigalight headed penicillinSkin breakdown Current medications: (Selected) Inpatient Medications Ordered Betadine 10% topical solution: 17.5 mL, mL/hr, Topical (INT), PREOP pharm Bicitra: 30 mL, Oral, PREOP pharm Bolus LR 1000 mL: 1,000 mL, IV Bolus, PREOP pharm Cyklokapron IVPB: 2,000 mg, 20 mL, mL/hr, Topical (INT), PREOP pharm Decadron: 10 mg, 1 mL, IV Push, AsDirected Kefzol: 3 gram(s), 200 mL/hr, IV Piggyback, PREOP pharm Lactated Ringers Infusion 1,000 mL: 20 mL/hr, Intravenous Naropin 25 mg + Toradol 15 mg + EPINEPHrine 1 mg/mL injectable solution 0.3 mg + morphine 2.5 mg...: 25 mg, 5 mL, mL/hr, Other, PREOP pharm Naropin 25 mg + Toradol 15 mg + EPINEPHrine 1 mg/mL injectable solution 0.3 mg + morphine 2.5 mg...: 25 mg, 5 mL, mL/hr, Other, PREOP pharm OxyCONTIN: 10 mg, 1 tab(s), Oral, PREOP pharm Pepcid IV: 20 mg, 2 mL, IV Push, PREOP pharm vancomycin: 1,750 mg, 35 mL, 306 mL/hr, IV Piggyback, PREOP pharm Prescriptions Prescribed Farxiga 10 mg oral tablet: 10 mg, 1 tab(s), Oral, qDay, 30 tab(s), 4 Refill(s) Xarelto 15 mg oral tablet: 15 mg, 1 tab(s), Oral, qHS, with food with evening meal, 30 tab(s), 11 Refill(s) amiodarone 200 mg oral tablet: 200 mg, 1 tab(s), Oral, qDay, 90 tab(s), 3 Refill(s) carvedilol 25 mg oral tablet: 25 mg, 1 tab(s), Oral, BID, 180 tab(s), 3 Refill(s) Documented Medications Documented Vitamin C 500 mg oral tablet: 500 mg, 1 tab(s), Oral, qDay Vitamin D3 25 mcg (1000 intl units) oral capsule: 25 mcg, 1 cap(s), Oral, Daily, 0 Refill(s) atorvastatin 40 mg oral tablet: 40 mg, 1 tab(s), Oral, qDay, Medications (1) Active Scheduled: (0) Continuous: (1) Lactated Ringers 1,000 mL 1,000 mL, Intravenous, 20 mL/hr PRN: (0) Problem list: Medical Acute on chronic systolic heart failure / SNOMED CT 8069337434 / Confirmed Postoperative anemia / SNOMED CT 695767966 / Confirmed Aneurysm, thoracic aortic / SNOMED CT 5994221516 / Confirmed Aortic root dilation / SNOMED CT 607393370 / Confirmed OBESITY (BMI 30-39.9) / SNOMED CT 302824280 / Confirmed LOW HDL (UNDER 40) / SNOMED CT 054483467 / Confirmed CRF (CHRONIC RENAL FAILURE), STAGE 2 (MILD) / SNOMED CT 3305433363 / Confirmed CORONARY ARTERY DISEASE, OCCLUSIVE / SNOMED CT 65821347 / Confirmed FISTULA, CORONARY ARTERY / SNOMED CT 0439671532 / Confirmed Encounter for monitoring cardiotoxic drug therapy / SNOMED CT 953680331 / Confirmed Fatigue / SNOMED CT 689477151 / Confirmed HISTORY OF CHRONIC BACK PAIN / SNOMED CT 928723187 / Confirmed RECEIVED INFLUENZA VACCINATION AT HOSPITAL / SNOMED CT 116968775 / Confirmed HFrEF (heart failure with reduced ejection fraction) / SNOMED CT 1045978591 / Confirmed Hyperlipidemia / SNOMED CT 88061597 / Confirmed ELEVATED GLUCOSE / SNOMED CT 180963534 / Confirmed SCOLIOSIS/KYPHOSCOLIOSIS / SNOMED CT 485842731 / Confirmed Left-sided weakness/bilateral frontoparietal foci of acute ischemia / SNOMED CT 824882380 / Confirmed Lumbar radiculitis / SNOMED CT 6881098225 / Confirmed Newly diagnosed diabetes HgbA1C 6.9 / SNOMED CT 9944562148 / Confirmed Preop cardiovascular exam / SNOMED CT 781789117 / Confirmed PERSISTENT ATRIAL FIBRILLATION / SNOMED CT 4466357376 / Confirmed PNEUMOCOCCAL VACCINATION GIVEN / SNOMED CT 829420574 / Confirmed RIGHT BUNDLE-BRANCH BLOCK / SNOMED CT 84806905 / Confirmed Spinal stenosis, lumbar / SNOMED CT 44120282 / Confirmed Type II diabetes mellitus / SNOMED CT 837354690 / Confirmed, Active Problems (38) Acute chest pain Acute on chronic systolic heart failure AF (atrial fibrillation) Aneurysm, thoracic aortic Aortic root dilation Arthritis CHF (congestive heart failure) CORONARY ARTERY DISEASE, OCCLUSIVE CRF (CHRONIC RENAL FAILURE), STAGE 2 (MILD) ELEVATED GLUCOSE Encounter for monitoring cardiotoxic drug therapy Fatigue FISTULA, CORONARY ARTERY Glasses HFrEF (heart failure with reduced ejection fraction) Hiatal hernia HISTORY OF CHRONIC BACK PAIN HTN (hypertension) Hyperlipidemia Left-sided weakness/bilateral frontoparietal foci of acute ischemia LOW HDL (UNDER 40) Lumbar radiculitis Newly diagnosed diabetes HgbA1C 6.9 OBESITY (BMI 30-39.9) Osteoarthritis Pain management PERSISTENT ATRIAL FIBRILLATION PNEUMOCOCCAL VACCINATION GIVEN Postoperative anemia Preop cardiovascular exam RECEIVED INFLUENZA VACCINATION AT HOSPITAL RIGHT BUNDLE-BRANCH BLOCK Scoliosis SCOLIOSIS/KYPHOSCOLIOSIS Spinal stenosis Spinal stenosis, lumbar Type II diabetes mellitus Wrist fracture Histories Past Medical History: Resolved Elevated glucose ([id number]): Resolved. Family History: Cancer Mother Brother Sister Father Procedure history: Echocardiogram ([id number]) on 09/29/2022 at 72 Years. Comments: 10/15/2022 14:01 Carlee Mcneil MA (ABR-OE) 1. Left ventricle: The cavity size is moderately increased. Wall thickness is moderately increased.Systolic function is moderately reduced. The estimated ejection fraction is 35-40%. Severe hypokinesis of the inferolateral and inferior myocardium. Diastolic dysfunction present but unable to assess severity. 2. Aortic valve: Thickening, consistent with sclerosis. There is mild, 1+ regurgitation. 3. Mitral valve: The annulus is moderately to severely calcified. There is moderate, 2+ regurgitation. 4. Left atrium: The atrium is moderately dilated. 5. Right ventricle: Systolic pressure is moderately increased. The RV systolic pressure by Doppler is 64 mm Hg. 6. Tricuspid valve: There is moderate, 2+ regurgitation. 7. Right atrium: The atrium is moderately dilated. The estimated right atrial pressure is 15 mm Hg. Umbilical hernia, Laparoscopic converted to open primary umbilical hernia repair with small bowel resection ([id number]) on 08/16/2022 at 72 Years. Comments: 09/01/2022 15:47 EDT - Patience Bess CMA Laparoscopic converted to open primary umbilical hernia repair with small bowel resection PM Inj Spine L/S With Imaging SN on 06/29/2022 at 71 Years. Comments: 06/29/2022 8:49 SWATHI Carlos auto-populated from documented surgical case History of reverse left total shoulder arthroplasty ([id number]) in the month of 12/2021 at 71 Years. Comments: 05/13/2022 14:[address] [facility] Cardioversion ([id number]) on 06/16/[address] angiography of chest with contrast ([id number]) on 06/04/2021 at 70 Years. Echocardiogram ([id number]) on 11/21/2020 at 70 Years. Comments: 03/15/2021 12:17 Mere Singh LPN (11/21/20) Summary: 1. Left ventricle: The cavity size is increased. Systolic function is mildly reduced. The estimatedejection fraction is 45-50%. Mild diffuse hypokinesis. Diastolic dysfunction is present. 2. Aortic valve: There is mild stenosis. There is mild regurgitation. 3. Mitral valve: The annulus is calcified. There is mild to moderate regurgitation. 4. Left atrium: The atrium is mildly dilated. 5. Right ventricle: Systolic function is reduced. The RV systolic pressure by Doppler is 54 mm Hg. 6. Right atrium: The atrium is mildly dilated. The estimated right atrial pressure is 3 mm Hg. 7. Pericardium, extracardiac: There is a right pleural effusion. Aortic valve replacement and aortoplasty ([id number]) on 11/19/2020 at 70 Years. Comments: 03/15/2021 12:17 Mere Singh LPN REPAIR ASCENDING AORTIC DISSECTION USING HEMASHIELD 34 MM WOVEN GRAFT, INSERTION TEMPORARY PACING WIRES Cardioversion ([id number]) on 01/26/2019 at 68 Years. Comments: 05/19/2019 9:01 Carlee Diaz MA (ABR-OE) successful cardioversion to normal sinus rhythm Stress testing using pharmacologic-induced stress ([id number]) on 10/20/2018 at 68 Years. Comments: 05/19/2019 9:00 Carlee Diaz MA (ABR-OE) EKG portion of Lexiscan stress test is negative for inducible ischemia 1. Reversible defect in the inferior, inferolateral, lateral and anterolateral bhandari suggesting ischemia in this area. 2. Mildly dilated LEFT ventricle with an ejection fraction of 26%. Wall motion as above. Cardiac catheterization ([id number]) on 10/18/2018 at 68 Years. Comments: 05/19/2019 8:57 Carlee Diaz MA (ABR-OE) SUMMARY: 1. Right coronary: Proximal vessel lesion: There is a 100% stenosis. Appearance of POLYETHYLENE COMBINER with small jump collaterals to mid RCA. RPDA fills via collaterals from the LAD. 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 IMPRESSIONS: 1. Single vessel coronary artery disease, predominantly involving the RCA. 2. The proximal lesion has appearance of chronic total occlusion with small jump collaterals to midRCA. There are collaterals filling the RPDA from left anterior descending artery. 3. 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 4. Case discussed with CT surgery due to incidental finding of LAD fistula to PA. Will pursue stress test to evaluate for anterior wall ischemia possibly related to shunt from proximal LAD fistula Hernia repair ([id number]). Colonoscopy ([id number]). Social History Social & Psychosocial Habits Alcohol 05/13/2022 Use: Past Substance Abuse 05/13/2022 Use: Current Type: Marijuana Frequency: 1-2 times per week Comment: has a medical card for this uses gummies and ointments - 05/13/2022 14:04 - SWATHI Jones Tobacco 05/19/2019 Tobacco Use: Never (less than 100 in l Home/Environment 06/16/2021 Domestic Concerns None Living situation: Home/Independent Nutrition/Health 06/16/2021 Type of diet: Regular Appetite Excellent Eating Difficulties None 05/13/2022 Caffeine intake amount: 2 cups per week . Physical Examination Vital Signs 10/26/2022 9:10 EDT Heart Rate Monitored 73 bpm bpm Respiratory Rate - Anes 18 br/min br/min Systolic Blood Pressure Non-Invasive 131 mmHg mmHg Diastolic Blood Pressure Non-Invasive 88 mmHg mmHg 10/26/2022 9:05 EDT Heart Rate Monitored 65 bpm bpm Respiratory Rate - Anes 15 br/min br/min Systolic Blood Pressure Non-Invasive 138 mmHg mmHg Diastolic Blood Pressure Non-Invasive 92 mmHg mmHg 10/26/2022 9:00 EDT Heart Rate Monitored 69 bpm bpm Respiratory Rate - Anes 15 br/min br/min Systolic Blood Pressure Non-Invasive 135 mmHg mmHg Diastolic Blood Pressure Non-Invasive 96 mmHg mmHg 10/26/2022 8:59 EDT Systolic Blood Pressure Non-Invasive 130 mmHg mmHg Diastolic Blood Pressure Non-Invasive 98 mmHg mmHg 10/26/2022 7:42 EDT Temperature Temporal Artery 36.4 DegC Apical Heart Rate 68 bpm Respiratory Rate 17 br/min Systolic Blood Pressure Non-Invasive 134 mmHg Diastolic Blood Pressure Non-Invasive 93 mmHg HI Vital Signs(last 24 hrs) Last Charted Heart Rate [id number] bpm (OCT 26 09:10) Resp Rate 17 br/min (OCT 26 07:42) HDI941 mmHg (OCT 26 09:10) DBP88 mmHg (OCT 26 09:10) BMI30.56 (OCT 26 08:08) Measurements from flowsheet : Measurements 10/26/2022 8:08 EDT Height 188 cm Admission Weight 108 kg Adams Body Weight 82.24 kg BSA Admission 2.34 Body Mass Index 30.56 kg/m2 10/26/2022 7:42 EDT Height 188 cm Admission Weight 108 kg Adams Body Weight 82.24 kg Admission Body Mass Index 30.56 m2 Pain assessment: Pain Assessment 10/26/2022 7:42 EDT Primary Pain Location Lower back Primary Pain Laterality Left Primary Pain Intensity 5 Primary Pain Quality Cramping Pain Scale Type 0-10 Pain scale . General: Alert and oriented. Airway: Normal temporomandibular joint mobility, Normal mouth. Mallampati classification: III (soft palate, base of uvula visible). Dentition Evaluation: Dentures, partial plate. Respiratory: Respirations are non-labored. Cardiovascular: Normal rate. Neurologic: Alert, Oriented. Review / Management Results review: No qualifying data available , Lab results 10/26/2022 9:13 EDT SN - CTm - Surgery Stop 10/26/2022 9:13 10/26/2022 9:13 EDT SN - DRS - Site and Details BACK 10/26/2022 9:13 EDT SN - CTm - Anesthesia Stop Time Anesthesia Stop Anesthesia Final Record 10/26/2022 9:13 EDT Lactated Ringers Injection 100 mL mL 10/26/2022 9:10 EDT Heart Rate Monitored 73 bpm bpm Respiratory Rate - Anes 18 br/min br/min Systolic Blood Pressure Non-Invasive 131 mmHg mmHg Diastolic Blood Pressure Non-Invasive 88 mmHg mmHg Oxygen Saturation 94 % % 10/26/2022 9:08 EDT propofol 20 mg mg 10/26/2022 9:06 EDT SN - XI - X-Ray Type C-Arm 10/26/2022 9:06 EDT SN - Implant - Implant/Explant Implant 10/26/2022 9:05 EDT Heart Rate Monitored 65 bpm bpm Respiratory Rate - Anes 15 br/min br/min Systolic Blood Pressure Non-Invasive 138 mmHg mmHg Diastolic Blood Pressure Non-Invasive 92 mmHg mmHg Oxygen Saturation 94 % % 10/26/2022 9:04 EDT propofol 40 mg mg 10/26/2022 9:03 EDT SN - Proc - Anesthesia Type MAC SN - Proc - EBL 0 mL SN - Proc - Actual Procedure SPINAL CORD STIMULATOR TRIAL 10/26/2022 9:03 EDT SN - SP - Prep Agents Chloraprep SN - SP - HR - Method N/A 10/26/2022 9:03 EDT fentaNYL 50 mcg mcg midazolam 1 mg mg 10/26/2022 9:01 EDT SN - PP - Body Position Prone Standard Intra-op 10/26/2022 9:01 EDT SN - Assess - LOC Alert, Awake SN - Assess - Orientation Oriented X 3 SN - Assess - Post-op Skin Integrity Intact/Dry 10/26/2022 9:01 EDT SN - CTm - Surgery Start 10/26/2022 9:01 10/26/2022 9:01 EDT SN - DC - Medication LIDOCAINE 1% 10ML SN - DC - Route of Administration Local SN - DC - By (Single) SN - DC - By (Single) 10/26/2022 9:01 EDT SN - CTm - Surgery Start Surgery Start 10/26/2022 9:00 EDT SN - CTm - Anesthesia Start Time Anesthesia Start 10/26/2022 9:00 EDT Heart Rate Monitored 69 bpm bpm Respiratory Rate - Anes 15 br/min br/min Systolic Blood Pressure Non-Invasive 135 mmHg mmHg Diastolic Blood Pressure Non-Invasive 96 mmHg mmHg Oxygen Saturation 96 % % lidocaine 20 mg mg propofol 20 mg mg 10/26/2022 8:59 EDT SN - GCD - ASA Class 3 SN - GCD - Post-operative Diagnosis M48..062, M54.16, G89.29 SN - GCD - Case Level Level 4 10/26/2022 8:59 EDT SN - Cul - Culture Type No Specimen per Surgeon 10/26/2022 8:59 EDT SN - CAt - Case Attendee SN - CAt - Case Attendee SN - CAt - Role Performed Retail Marketing Executive 10/26/2022 8:59 EDT Systolic Blood Pressure Non-Invasive 130 mmHg mmHg Diastolic Blood Pressure Non-Invasive 98 mmHg mmHg fentaNYL 50 mcg mcg midazolam 1 mg mg Lactated Ringers Injection Begin Bag 1,000 mL mL 10/26/2022 8:53 EDT SN - CAt - Case Attendee SN - CAt - Case Attendee SN - CAt - Case Attendee SN - CAt - Case Attendee SN - CAt - Case Attendee SN - CAt - Case Attendee SN - CAt - Case Attendee SN - CAt - Case Attendee SN - CAt - Case Attendee SN - CAt - Case Attendee SN - CAt - Role Performed Primary Surgeon SN - CAt - Role Performed Operator Receptionist 1 SN - CAt - Role Performed Scrub 1 SN - CAt - Role Performed Convict Guard SN - CAt - Role Performed SHEET ROCK HANGER 10/26/2022 8:09 EDT SN - Preop - CTm Pt Ready for OR/Proced 10/26/2022 8:09 10/26/2022 8:09 EDT SN - Preop - CTm Pt in SDS Room 10/26/2022 7:38 10/26/2022 8:08 EDT Designated Person #1 We May Share PHI Artie Bernard [phone] Designated Person #1 Relationship Friend Designated Person #2 We May Share PHI francesca james [phone] Designated Person #2 Relationship Friend Additional Designated Person Share PHI Additional Designated Person Share PHI Height 188 cm Admission Weight 108 kg Adams Body Weight 82.24 kg BSA Admission 2.34 Body Mass Index 30.56 kg/m2 Status N/A Sensory Deficits None Infectious Disease Symptoms Patient states no symptoms Infectious Disease Recent Exposure No Alcohol and Drug Use No Employee of Institutional Living No Health Care Employee No History of Exposure to TB No History of Positive Chest X-Ray for TB No History of Positive TB Skin Test No Homeless No Known Immunosuppression No Recent Immigrant No Resident of Institutional Living No Bloody Sputum No Fatigue No Fever No Loss of Appetite No Night Sweats No Persistent Cough > 3 Weeks No Weight Loss No Barriers to Learning None evident Teaching Method Explanation, Printed materials Preferred Written Language Lebanese Preferred Spoken Language Lebanese Information Given by Patient Patient's Current Physicians Patient's Current Physicians Discharge To, Anticipated Home independently Prev Test Positive/Diagnosis w/COVID-19 No Current Quarantine/Isolated any Illness No Any Contact with Sick Animals/Birds No Traveled Anywhere in Last 30 Days No N/A Personal Devices, Patient Valuables Dentures, partial plate Admission Note-Nursing Procedure/Therapy Intake 10/26/2022 8:07 EDT Lactated Ringers Injection Begin Bag 1,000 mL mL 10/26/2022 8:03 EDT Continuous IV Infusions LR Hand Left 10/26/2022 20 gauge Peripheral IV Activity: Assessed Peripheral IV Dressing Condition: Clean, Dry, Intact Peripheral IV Dressing Activity: Applied, Transparent dressing Peripheral IV Line Status/Patency: Continuous infusion Peripheral IV Line Care: Secured with tape Peripheral IV Site Condition: No complications Peripheral IV Equipment: Extension set, Stopcock Peripheral IV Number of Attempts: 1 10/26/2022 7:42 EDT Blood Glucose, Capillary 111 mg/dL Height 188 cm Admission Weight 108 kg Adams Body Weight 82.24 kg Admission Body Mass Index 30.56 m2 Temperature Temporal Artery 36.4 DegC Apical Heart Rate 68 bpm Respiratory Rate 17 br/min Systolic Blood Pressure Non-Invasive 134 mmHg Diastolic Blood Pressure Non-Invasive 93 mmHg HI Primary Pain Location Lower back Primary Pain Laterality Left Primary Pain Intensity 5 Primary Pain Quality Cramping Pain Scale Type 0-10 Pain scale Heart Sounds ICU S1S2 Heart Rhythm Irregular Respirations Unlabored All Lobes Breath Sounds Clear Oxygen Therapy Room air Oxygen Saturation 95 % Abdomen Description Non-distended Bowel Sounds All Quadrants Present Urinary Elimination Voiding, no difficulties Skin Temperature Warm Skin Description [place], Dry Skin Integrity Intact Mucous Membrane Color [place] Skin Moisture General Dry Characteristics of Speech Clear Level of Consciousness Alert Strength All Extremities Weak Tone All Extremities Normal Affect/Behavior Appropriate, Calm, Cooperative Orientation Oriented x 4 Kayy Motor (2) Moves 4 extremities voluntarily or on command Kayy Respirations (2) Spontaneous respiration without support, RR > 10 Kayy Blood Pressure (2) BP 20% above or below preanesthetic level Kayy Pulse (2) Pulse 20% above or below preanesthetic level Kayy Oxygen Saturation (2) 94% or more Kayy Level of Consciousness (2) Fully awake Kayy III Score 12 Activity Status ADL Awake Assistive Device Cane Standard Safety ID band on, Allergy Band on, Call device within reach, Bed in low position, Non-Slip footwear . Assessment and Plan [place] [employer] (ASA) physical status classification: Class III. Anesthetic Preoperative Plan Anesthetic technique: MAC. Informed consent: signed by patient. Digitally Signed by KEANU REBOLLAR on 10/26/2022 09:14 AM [facility]05-27-2023 Hospital Discharge instructions Patient Education 09/05/2022 14:22:07 Heart Failure Heart Failure Heart failure is a condition in which the heart has trouble pumping blood because it has become weak or stiff. This means that the heart does not pump blood efficiently for the body to work well. [place] people with heart failure, fluid may back up into the lungs and there may be swelling (edema) in the lower legs. Heart failure is usually a long-term (chronic) condition. It is important for youto take good care of yourself and follow the treatment plan from your health care provider. What are the causes? This condition is caused by some health problems, including: High blood pressure (hypertension). Hypertension causes the heart muscle to work harder than normal. High blood pressure eventually causes the heart to become stiff and weak. Coronary artery disease (CAD). CAD is the buildup of cholesterol and fat (plaques) in the arteries of the heart. Heart attack (myocardial infarction). Injured tissue, which is caused by the heart attack, does notcontract as well and the heart's ability to pump blood is weakened. Abnormal heart valves. When the heart valves do not open and close properly, the heart muscle must pump harder to keep the blood flowing. Heart muscle disease (cardiomyopathy or myocarditis). Heart muscle disease is damage to the heart muscle from a variety of causes, such as drug or alcohol abuse, infections, or unknown causes. These can increase the risk of heart failure. Lung disease. When the lungs do not work properly, the heart must work harder. What increases the risk? Risk of heart failure increases as a person ages. This condition is also more likely to develop in people who: Are overweight. Are male. Smoke or chew tobacco. Abuse alcohol or illegal drugs. Have taken medicines that can damage the heart, such as chemotherapy drugs. Have diabetes. ?High blood sugar (glucose) is associated with high fat (lipid) levels in the blood. ?Diabetes can also damage tiny blood vessels that carry nutrients to the heart muscle. Have abnormal heart rhythms. Have thyroid problems. Have low blood counts (anemia). What are the signs or symptoms? Symptoms of this condition include: Shortness of breath with activity, such as when climbing stairs. Persistent cough. Swelling of the feet, ankles, legs, or abdomen. Unexplained weight gain. Difficulty breathing when lying flat (orthopnea). Waking from sleep because of the need to sit up and get more air. Rapid heartbeat. Fatigue and loss of energy. Feeling light-headed, dizzy, or close to fainting. Loss of appetite. Nausea. Increased urination during the night (nocturia). Confusion. How is this diagnosed? This condition is diagnosed based on: Medical history, symptoms, and a physical exam. Diagnostic tests, which may include: ?Echocardiogram. ?Electrocardiogram (ECG). ?Chest X-ray. ?Blood tests. ?Exercise stress test. ?Radionuclide scans. ?Cardiac catheterization and angiogram. How is this treated? Treatment for this condition is aimed at managing the symptoms of heart failure. Medicines, behavioral changes, or other treatments may be necessary to treat heart failure. Medicines These may include: Angiotensin-converting enzyme (TARAH) inhibitors. This type of medicine blocks the effects of a bloodprotein called angiotensin-converting enzyme. TARAH inhibitors relax (dilate) the blood vessels and help to lower blood pressure. Angiotensin receptor blockers (ARBs). This type of medicine blocks the actions of a blood protein called angiotensin. ARBs dilate the blood vessels and help to lower blood pressure. Water pills (diuretics). Diuretics cause the kidneys to remove salt and water from the blood. The extra fluid is removed through urination, leaving a lower volume of blood that the heart has to pump. Beta blockers. These improve heart muscle strength and they prevent the heart from beating too quickly. Digoxin. This increases the force of the heartbeat. Healthy behavior changes These may include: Reaching and maintaining a healthy weight. Stopping smoking or chewing tobacco. Eating heart-healthy foods. Limiting or avoiding alcohol. Stopping use of street drugs (illegal drugs). Physical activity. Other treatments These may include: Surgery to open blocked coronary arteries or repair damaged heart valves. Placement of a biventricular pacemaker to improve heart muscle function (cardiac resynchronization therapy). This device paces both the right ventricle and left ventricle. Placement of a device to treat serious abnormal heart rhythms (implantable cardioverter defibrillator, or ICD). Placement of a device to improve the pumping ability of the heart (left ventricular assist device, or LVAD). Heart transplant. This can cure heart failure, and it is considered for certain patients who do notimprove with other therapies. Follow these instructions at home: Medicines Take [id number] and prescription medicines only as told by your health care provider. Medicines are important in reducing the workload of your heart, slowing the progression of heart failure, and improving your symptoms. ?Do not stop taking your medicine unless your health care provider told you to do that. ?Do not skip any dose of medicine. ?Refill your prescriptions before you run out of medicine. You need your medicines every day. Eating and drinking Eat heart-healthy foods. Talk with a dietitian to make an eating plan that is right for you. ?Choose foods that contain no trans fat and are low in saturated fat and cholesterol. Healthy choices include fresh or frozen fruits and vegetables, fish, lean meats, legumes, fat-free or low-fat dairy products, and whole-grain or high-fiber foods. ?Limit salt (sodium) if directed by your health care provider. Sodium restriction may reduce symptoms of heart failure. Ask a dietitian to recommend heart-healthy seasonings. ?Use healthy cooking methods instead of frying. Healthy methods include roasting, grilling, broiling, baking, poaching, steaming, and stir-frying. Limit your fluid intake if directed by your health care provider. Fluid restriction may reduce symptoms of heart failure. Lifestyle Stop smoking or using chewing tobacco. Nicotine and tobacco can damage your heart and your blood vessels. Do not use nicotine gum or patches before talking to your health care provider. Limit alcohol intake to no more than 1 drink per day for non- women and 2 drinks per day for men. One drink equals 12 oz of beer, 5 oz of wine, or 1 oz of hard liquor. ?Drinking more than that is harmful to your heart. Tell your health care provider if you drink alcohol several times a week. ?Talk with your health care provider about whether any level of alcohol use is safe for you. ?If your heart has already been damaged by alcohol or you have severe heart failure, drinking alcohol should be stopped completely. Stop use of illegal drugs. Lose weight if directed by your health care provider. Weight loss may reduce symptoms of heart failure. Do moderate physical activity if directed by your health care provider. People who are elderly and people with severe heart failure should consult with a health care provider for physical activity recommendations. Monitor important information Weigh yourself every day. Keeping track of your weight daily helps you to notice excess fluid sooner. ?Weigh yourself every morning after you urinate and before you eat breakfast. ?Wear the same amount of clothing each time you weigh yourself. ?Record your daily weight. Provide your health care provider with your weight record. Monitor and record your blood pressure as told by your health care provider. Check your pulse as told by your health care provider. Dealing with extreme temperatures If the weather is extremely hot: ?Avoid vigorous physical activity. ?Use air conditioning or fans or seek a cooler location. ?Avoid caffeine and alcohol. ?Wear loose-fitting, lightweight, and light-colored clothing. If the weather is extremely cold: ?Avoid vigorous physical activity. ?Layer your clothes. ?Wear mittens or gloves, a hat, and a scarf when you go outside. ?Avoid alcohol. General instructions Manage other health conditions such as hypertension, diabetes, thyroid disease, or abnormal heart rhythms as told by your health care provider. Learn to manage stress. If you need help to do this, ask your health care provider. Plan rest periods when fatigued. Get ongoing education and support as needed. Participate in or seek rehabilitation as needed to maintain or improve independence and quality of life. Stay up to date with immunizations. Keeping current on pneumococcal and influenza immunizations is especially important to prevent respiratory infections. Keep all follow-up visits as told by your health care provider. This is important. Contact a health care provider if: You have a rapid weight gain. You have increasing shortness of breath that is unusual for you. You are unable to participate in your usual physical activities. You tire easily. You cough more than normal, especially with physical activity. You have any swelling or more swelling in areas such as your hands, feet, ankles, or abdomen. You are unable to sleep because it is hard to breathe. You feel like your heart is beating quickly (palpitations). You become dizzy or light-headed when you stand up. Get help right away if: You have difficulty breathing. You notice or your family notices a change in your awareness, such as having trouble staying awake or having difficulty with concentration. You have pain or discomfort in your chest. You have an episode of fainting (syncope). This information is not intended to replace advice given to you by your health care provider. Make sure you discuss any questions you have with your health care provider. Document Released: 03/29/2006 Document Revised: 02/25/2018 Document Reviewed: 10/21/2016 [employer] Patient Education 2019 [employer] Follow Up Care 08/24/2022 15:12:39 With:[facility] Address: [address], [place] [address]- [phone] When:1-2 days Comments:Please call Starla Ortiz to schedule your Outpatient Physical Therapy. With:DELMAR MORENO MD Address: [address] [place] [address] [place] [address] [phone] When:09/21/2022 14:00:00 Comments:Your pain management doctor needs you to keep this appointment so they can start the authorization process for your treatment. It is in the [place] office. [facility] 05-27-2023 Note Discharge Instructions Thank you for allowing [facility] to assist you with your healthcare needs. The following is importantdischarge information regarding your hospital visit. Your Care Team [facility] Your Diagnosis Asthenia S/P hernia repair HFrEF (heart failure with reduced ejection fraction) PERSISTENT ATRIAL FIBRILLATION CORONARY ARTERY DISEASE, OCCLUSIVE What to do next Scheduled Follow-Up Appointments Appointment Type When With Where Contact [facility] 09/21/2022 02:00 PM EDT DELMAR MORENO [facility] Follow Up Appointments Follow Up with DELMAR MORENO MD When 09/21/2022 02:00 PM EDT Why: Your pain management doctor needs you to keep this appointment so they can start the authorization process for your treatment. It is in the [place] office. Where: [address] [place] [address] [place] [address]- [phone] Follow Up with Starla [place] Ortiz When Within 1-2 days Why: Please call Starla Ortiz to schedule your Outpatient Physical Therapy. Where: [address] [place] [phone] The Following Activity and Diet Have Been Ordered for You Discharge Activity - Ordered -- Resume your pre-hospitalization activity, 09/05/22 14:01:00 EDT Discharge Diet - Ordered -- No changes were made to your diet during your hospital stay. Please resume your pre hospitalization diet on discharge., 09/05/22 14:01:00 EDT The Following Equipment Has Been Ordered for You No qualifying data available. The Following Treatments Have Been Ordered for You Discharge Labs No qualifying data available. Discharge Radiology No qualifying data available. Other Therapies Discharge to Outpatient PT - Ordered -- Therapy Order: Outpatient PT Eval and Treat, weakness, Reason: Weakness, 09/05/22 14:01:00 EDT Post Acute Orders No qualifying data available. Someone Will Contact You Regarding These Home Health Referrals Consult Home Health - OT (Home Health OT Consult) - Ordered -- 09/04/22 12:53:00 EDT, Home Therapy Order: OT Eval & Treat, Home Therapy Instruction: Full weight bearing, Reason: ADL assistance Consult Home Health - PT (Home Health PT Consult) - Ordered -- 09/04/22 12:53:00 EDT, Home Therapy Order: PT Eval & Treat, Reason: General Debility, Home Therapy Instruction: Full weight bearing Allergies penicillin (Skin breakdown) Medications Please ask your primary doctor or pharmacist before taking any other medication not listed, including over the counter drugs, herbal medications, vitamins and or supplements as they may interact withyour home medications. What How Much When Instructions Last Dose New magnesium oxide (magnesium oxide 400 mg oral tablet) 1 tab(s) by mouth Two (2) times a day Duration: 30 Days Pickup at [facility]/pharmacy #[id number] 2:30 pm Changed bumetanide (bumetanide 1 mg oral tablet) 1 tab(s) by mouth Once a day Changed tiZANidine (tiZANidine 4 mg oral tablet) 1 tab(s) by mouth Every 8 hours as needed for Muscle spasm TAKE 1 TABLET BY MOUTH THREE TIMES A DAY NEEDED 06/06 Unchanged amiodarone (amiodarone 200 mg oral tablet) 1 tab(s) by mouth Once a day 9am Unchanged atorvastatin (atorvastatin 40 mg oral tablet) 1 tab(s) by mouth Once a day 9 am Unchanged carvedilol (carvedilol 25 mg oral tablet) 1 tab(s) by mouth Two (2) times a day 9 am Unchanged dapagliflozin (Farxiga 10 mg oral tablet) 1 tab(s) by mouth Once a day 9 am Unchanged rivaroxaban (Xarelto 15 mg oral tablet) 1 tab(s) by mouth Daily at bedtime with food with evening meal 9 am Pharmacy Information [facility]/pharmacy #[id number]: [address], [place] [id number] [phone] Please take this list to your next doctor s visit. Bring all medications you take, including over the counter medications, herbals and other supplements with you to your doctor s visit. Patients and families are reminded to discard old lists and to update any records with all medication providers or retail pharmacies. Medication Leaflets rivaroxaban (TRACY a CLEMENTINE a ban) Simonreljaye Xarelto Starter Pack What is the most important information I should know about rivaroxaban? Do not stop taking rivaroxaban without your doctor's advice. Stopping it suddenly can increase yourrisk of blood clots or stroke. Some drugs can increase your risk of bleeding when used with rivaroxaban. Tell your doctor about all other medicines you use. Call your doctor at once if you or your child have signs of bleeding such as: headaches, feeling very weak or dizzy, bleeding gums, nosebleeds, heavy menstrual periods or abnormal vaginal bleeding, blood in your urine, bloody or tarry stools, coughing up blood, vomit that looks like coffee grounds or any bleeding that will not stop. Rivaroxaban can cause a very serious blood clot around your spinal cord if you undergo a spinal tapor receive spinal anesthesia (epidural). Tell any doctor who treats you that you are taking rivaroxaban. What is rivaroxaban? Rivaroxaban is used to treat or prevent blood clots (venous thromboembolism, or VTE). Blood clots can occur in the legs (deep vein thrombosis, DVT) or the lungs (pulmonary embolism, PE). Rivaroxaban is sometimes used to lower your risk of a blood clot coming back after you have received treatment for blood clots for at least 6 months in adults, and at least 5 days in children from to less than 18 years of age. Rivaroxaban is also given together with aspirin to lower the risk of stroke, heart attack, or otherserious heart and blood circulation problems in adults with coronary artery disease (clogged arteries) or peripheral artery disease (reduced blood flow to the legs), including adults who recently hada procedure to improve blood flow to the legs. Rivaroxaban can also be used to prevent blood clots in adults that are not able to move as normal during and after a hospital stay or after a hip or knee replacement surgery. Rivaroxaban can be used to prevent blood clots in children 2 years and older that have undergone surgery for a heart disease present at . Rivaroxaban is also used to lower the risk of stroke and blood clots in adults with atrial fibrillation (a heart rhythm disorder). Rivaroxaban may also be used for purposes not listed in this medication guide. What should I discuss with my healthcare provider before taking rivaroxaban? You should not use rivaroxaban if you are allergic to it, or if you have active or uncontrolled bleeding. Rivaroxaban can make it easier for you to bleed, even from a minor injury. Call your doctor if you have bleeding that will not stop. Rivaroxaban can cause a serious blood clot if you undergo a procedure such as a spinal tap or receive spinal anesthesia (epidural). This type of blood clot could cause permanent or long-term paralysis. Tell your doctor if you have or ever had: a history of problems with your spine or a spinal surgery; a history of difficult or repeated spinal taps; a thin tube (catheter) placed in your back to give you certain medicine; bleeding problems; an artificial heart valve; antiphospholipid syndrome, an immune system disorder that increases the risk of blood clots; taken NSAIDs (nonsteroidal anti-inflammatory drugs)--aspirin, ibuprofen (Advil, Motrin), naproxen (Aleve), and other medicines that prevent blood from clotting; or liver or kidney disease. Taking rivaroxaban during may cause bleeding in the mother or the unborn baby. Tell your doctor if you are or plan to become . It may not be safe to breastfeed a baby while you are using this medicine. Ask your doctor about the risks. How should I take rivaroxaban? Follow all directions on your prescription label and read all medication guides or instruction sheets. Your doctor may occasionally change your dose. Use the medicine exactly as directed. Do not change your dose or stop taking this medication without your doctor's advice. Stopping suddenly can increase your risk of blood clots or stroke. Tell any doctor who treats you that you are using rivaroxaban. If you need surgery or dental work, tell the surgeon or dentist ahead of time that you are using this medication. If you need anesthesiafor a medical procedure or surgery, you may need to stop using rivaroxaban for a short time. For some conditions, rivaroxaban should be taken with food. Whether you take the medicine with or without food may also depend on the tablet strength you take. Follow your doctor's dosing instructions very carefully. If you cannot swallow a rivaroxaban tablet whole, crush it and mix the medicine with a small amountof applesauce. Swallow the mixture right away without chewing. If you are taking the 15 mg or 20 mgtablet, the dose should be immediately followed by food. Follow your healthcare provider's instructions about giving rivaroxaban through a feeding tube if needed. Doses are based on weight in children and teenagers. Your child's dose may change if the child gains or loses weight. If your child is taking the tablet, make sure it is swallowed whole. Rivaroxaban should not be split to provide a smaller dose. Talk to your doctor about switching to the oral suspension (liquid). If your child vomits within 30 minutes of taking the oral suspension (liquid), give a new full dose. If your child vomits more than 30 minutes after taking the oral suspension (liquid), do not give another dose. Give the next dose as scheduled. Shake the oral suspension (liquid). Measure a dose with the supplied measuring device (not a kitchen spoon). Store at room temperature away from moisture and heat. Do not freeze the oral suspension (liquid). What happens if I miss a dose? If you take rivaroxaban 1 time each day: Take the medicine as soon as you remember, and then go back to your regular schedule. Do not take two doses in the same day. If you take the 15-milligram tablet 2 times each day: Take the missed dose on the same day you remember it. You may take the missed morning dose with the evening dose. Take your next dose at the regular time and stay on your two times a day schedule. If you take the 2.5-milligram tablet 2 times each day: Skip the missed dose and take your next doseat the regular time. Do not use two doses at one time. If your child takes rivaroxaban 2 times each day: give the missed morning dose as soon as you remember. You may give the missed morning dose with the evening dose. If you miss an evening dose, skip the missed dose and then go back to the regular schedule. If your child takes rivaroxaban 3 times each day: skip the missed dose and give the next dose at the regular time. Do not give two doses at one time. Get your prescription refilled before you run out of medicine completely. What happens if I overdose? Seek emergency medical attention or call the Poison Help line at . An overdose may cause excessive bleeding. What should I avoid while taking rivaroxaban? Avoid activities that may increase your risk of bleeding or injury. Use extra care while shaving orbrushing your teeth. What are the possible side effects of rivaroxaban? Get emergency medical help if you have signs of an allergic reaction: hives; difficult breathing; swelling of your face, lips, tongue, or throat. Also seek emergency medical attention if you have symptoms of a spinal blood clot: back pain, numbness, tingling, muscle weakness in your lower body, or loss of bladder or bowel control. Rivaroxaban can cause you to bleed more easily. Call your doctor at once if you have signs of bleeding such as: bruising or bleeding that will not stop (nosebleeds, bleeding gums, heavy menstrual bleeding); pain, swelling, new drainage, or excessive bleeding from a wound; headaches, dizziness, weakness, feeling like you might pass out; urine that looks red, pink, or brown; or bloody or tarry stools, coughing up blood or vomit that looks like coffee grounds. Common side effects may include: bleeding; vomiting; cough; or stomach or gut inflammation. This is not a complete list of side effects and others may occur. Call your doctor for medical advice about side effects. You may report side effects to FDA at 6-188-JNR-0394. What other drugs will affect rivaroxaban? Sometimes it is not safe to use certain medicines at the same time. Some drugs can affect your blood levels of other drugs you use, which may increase side effects or make the medicines less effective. Tell your doctor about all your current medicines. Many drugs can affect rivaroxaban, especially: ketoconazole; ritonavir; erythromycin, rifampin; carbamazepine, phenytoin; Valeria's wort; medicine used to prevent blood clots--enoxaparin, warfarin, alteplase, clopidogrel, dipyridamole, ticlopidine, and others; or NSAIDs (nonsteroidal anti-inflammatory drugs)--aspirin, ibuprofen (Advil, Motrin), naproxen (Aleve), celecoxib, diclofenac, indomethacin, meloxicam, and others. This list is not complete and many other drugs may affect rivaroxaban. This includes prescription and ubbj-acg-[id number] medicines, vitamins, and herbal products. Not all possible drug interactions arelisted here. Where can I get more information? Your doctor or pharmacist can provide more information about rivaroxaban. Remember, keep this and all other medicines out of the reach of children, never share your medicines with others, and use this medication only for the indication prescribed. Every effort has been made to ensure that the information provided by [employer]. [employer]') is accurate, up-to-date, and complete, but no guarantee is made to that effect. Drug information contained herein may be time sensitive. [employer] information has been compiled for use by healthcare practitioners and consumers in the [place] and therefore [employer] does not warrant that uses outside of the [place] are appropriate, unless specifically indicated otherwise. [employer] drug information does not endorse drugs, diagnose patients or recommend therapy. [employer] drug information isan informational resource designed to assist licensed healthcare practitioners in caring for their p atients and/or to serve consumers viewing this service as a supplement to, and not a substitute for, the expertise, skill, knowledge and judgment of healthcare practitioners. The absence of a warningfor a given drug or drug combination in no way should be construed to indicate that the drug or drug combination is safe, effective or appropriate for any given patient. [employer] does not assume any responsibility for any aspect of healthcare administered with the aid of information [employer] provides. The information contained herein is not intended to cover all possible uses, directions, precautions, warnings, drug interactions, allergic reactions, or adverse effects. If you have questions about the drugs you are taking, check with your doctor, nurse or pharmacist. Copyright 9480-4292 [employer]. Version: 10.. Revision Date: 2022. amiodarone (oral) (A mi [place] da mickey) Pacerone What is the most important information I should know about amiodarone? Amiodarone is for use only in treating life-threatening heart rhythm disorders. You should not take this medicine if you are allergic to amiodarone or iodine, or if you have heartblock, a history of slow heartbeats that have caused you to faint, or if your heart cannot pump blood properly. Amiodarone can cause dangerous side effects on your heart, liver, lungs, or vision. Call your doctor or get medical help at once if you have: chest pain, fast or pounding heartbeats, trouble breathing, vision problems, upper stomach pain, vomiting, dark urine, jaundice (yellowing ofthe skin or eyes), or if you cough up blood. What is amiodarone? Amiodarone affects the rhythm of your heartbeats. Amiodarone is used to help keep the heart beating normally in people with life- threatening heart rhythm disorders of the ventricles (the lower chambers of the heart that allow blood to flow out of the heart). Amiodarone is used to treat ventricular tachycardia or ventricular fibrillation. Amiodarone is for use only in treating life-threatening heart rhythm disorders. Amiodarone may also be used for purposes not listed in this medication guide. What should I discuss with my healthcare provider before taking amiodarone? You should not use this medicine if you are allergic to amiodarone or iodine, or if you have: a serious heart condition called 'AV block' (2nd or 3rd degree), unless you have a pacemaker; a history of slow heartbeats that have caused you to faint; or if your heart cannot pump blood properly. Amiodarone can cause dangerous side effects on your heart, liver, lungs, or thyroid. Tell your doctor if you have ever had: asthma or another lung disorder; liver disease; a thyroid disorder; vision problems; high or low blood pressure; an electrolyte imbalance (such as low levels of potassium or magnesium in your blood); or if you have a pacemaker or defibrillator implanted in your chest. Taking amiodarone during may harm an unborn baby, or cause thyroid problems or abnormal heartbeats in the baby after it is born. Amiodarone may also affect the child's growth or development(speech, movement, academic skills) later in life. Tell your doctor if you are or if you become . You should not breast-feed while taking amiodarone, and for several months after stopping. Amiodarone takes a long time to clear from your body. Talk to your doctor about the best way to feed your baby during this time. How should I take amiodarone? Follow all directions on your prescription label and read all medication guides or instruction sheets. Your doctor may occasionally change your dose. Use the medicine exactly as directed. You will receive your first few doses in a hospital setting, where your heart rhythm can be monitored. If you have been taking another heart rhythm medicine, you may need to gradually stop taking it when you start using amiodarone. Follow your doctor's dosing instructions very carefully. You may take amiodarone with or without food, but take it the same way each time. It may take up to 3 weeks before your heart rhythm improves. Keep using the medicine as directed even if you feel well. Amiodarone can have long lasting effects on your body. You may need frequent medical tests while using this medicine and for several months after your last dose. If you need surgery (including laser eye surgery), tell the surgeon ahead of time that you are using amiodarone. This medicine can affect the results of certain medical tests. Tell any doctor who treats you that you are using amiodarone. Store at room temperature away from moisture, heat, and light. What happens if I miss a dose? Skip the missed dose and use your next dose at the regular time. Do not use two doses at one time. What happens if I overdose? Seek emergency medical attention or call the Poison Help line at . An overdose of amiodarone can be fatal. Overdose symptoms may include weakness, slow heart rate, feeling light-headed, or loss of consciousness. What should I avoid while taking amiodarone? Avoid driving or hazardous activity until you know how this medicine will affect you. Your reactions could be impaired. Grapefruit may interact with amiodarone and lead to unwanted side effects. Avoid the use of grapefruit products. Avoid taking an herbal supplement containing Valeria's wort. Amiodarone could make you sunburn more easily. Avoid sunlight or tanning beds. Wear protective clothing and use sunscreen (SPF 30 or higher) when you are outdoors. What are the possible side effects of amiodarone? Get emergency medical help if you have signs of an allergic reaction: hives; difficulty breathing; swelling of your face, lips, tongue, or throat. Amiodarone takes a long time to completely clear from your body. You may continue to have side effects from amiodarone after you stop using it. Call your doctor at once if you have any of these side effects, even if they occur up to several months after you stop using amiodarone: wheezing, cough, chest pain, cough with bloody mucus, fever; a new or a worsening irregular heartbeat pattern (fast, slow, or pounding heartbeats); a light-headed feeling, like you might pass out; blurred vision, seeing halos around lights (your eyes may be more sensitive to light); liver problems--nausea, vomiting, stomach pain (upper right side), tiredness, dark urine, jaundice (yellowing of the skin or eyes); nerve problems--loss of coordination, muscle weakness, uncontrolled muscle movement, or a prickly feeling in your hands or lower legs; signs of overactive thyroid--weight loss, thinning hair, feeling hot, increased sweating, tremors, feeling nervous or irritable, irregular menstrual periods, swelling in your neck (goiter); or signs of underactive thyroid--weight gain, tiredness, depression, trouble concentrating, feeling cold. Common side effects may include: nausea, vomiting, loss of appetite; or constipation. This is not a complete list of side effects and others may occur. Call your doctor for medical advice about side effects. You may report side effects to FDA at 3-380-ZUQ-4926. What other drugs will affect amiodarone? Sometimes it is not safe to use certain medications at the same time. Some drugs can affect your blood levels of other drugs you take, which may increase side effects or make the medications less effective. Amiodarone takes a long time to completely clear from your body. Drug interactions are possible forup to several months after you stop using amiodarone. Talk to your doctor before taking any medication during this time. Keep track of how long it has been since your last dose of amiodarone. Many drugs can affect amiodarone. This includes prescription and cayf-dvb-[id number] medicines, vitamins, and herbal products. Not all possible interactions are listed here. Tell your doctor about all your current medicines and any medicine you start or stop using. Where can I get more information? Your doctor or pharmacist can provide more information about amiodarone. Remember, keep this and all other medicines out of the reach of children, never share your medicines with others, and use this medication only for the indication prescribed. Every effort has been made to ensure that the information provided by [employer]') is accurate, up-to-date, and complete, but no guarantee is made to that effect. Drug information contained herein may be time sensitive. [employer] information has been compiled for use by healthcare practitioners and consumers in the [place] and therefore [employer] does not warrant that uses outside of the [place] are appropriate, unless specifically indicated otherwise. [employer] drug information does not endorse drugs, diagnose patients or recommend therapy. [employer] drug information isan informational resource designed to assist licensed healthcare practitioners in caring for their p atients and/or to serve consumers viewing this service as a supplement to, and not a substitute for, the expertise, skill, knowledge and judgment of healthcare practitioners. The absence of a warningfor a given drug or drug combination in no way should be construed to indicate that the drug or drug combination is safe, effective or appropriate for any given patient. [employer] does not assume any responsibility for any aspect of healthcare administered with the aid of information [employer] provides. The information contained herein is not intended to cover all possible uses, directions, precautions, warnings, drug interactions, allergic reactions, or adverse effects. If you have questions about the drugs you are taking, check with your doctor, nurse or pharmacist. Copyright 7792-1433 [employer]. Version: 7.01. Revision Date: 02/15/2018. carvedilol (RENETTA ve dil ole) Hannah, Hannah JENNINGS What is the most important information I should know about carvedilol? You should not take carvedilol if you have asthma, bronchitis, emphysema, severe liver disease, or a serious heart condition such as heart block, 'sick sinus syndrome,' or slow heart rate (unless youhave a pacemaker). What is carvedilol? Carvedilol is a beta-mimi that is used to treat heart failure and hypertension (high blood pressure). Carvedilol is also used after a heart attack that has caused your heart not to pump as well. Carvedilol may also be used for purposes not listed in this medication guide. What should I discuss with my healthcare provider before taking carvedilol? You should not take carvedilol if you are allergic to it, or if you have: asthma, bronchitis, emphysema; severe liver disease; or a serious heart condition such as severe heart failure, heart block, 'sick sinus syndrome,' or slowheart rate (unless you have a pacemaker). Tell your doctor if you have ever had: coronary artery disease (clogged arteries); slow heartbeats that have caused you to faint; fluid retention; asthma or other lung problems; angina (chest pain); diabetes (taking carvedilol can make it harder for you to tell when you have low blood sugar); a thyroid disorder; kidney disease; circulation problems (such as Raynaud's syndrome); or pheochromocytoma (tumor of the adrenal gland). Tell your doctor if you are or . Carvedilol is not approved for use by anyone younger than 18 years old. How should I take carvedilol? Follow all directions on your prescription label and read all medication guides or instruction sheets. Your doctor may occasionally change your dose. Use the medicine exactly as directed. Carvedilol works best if you take it with food, at the same time every day. Swallow the extended-release capsule whole and do not crush, chew, break, or open it. If you cannot swallow a capsule whole, open it and sprinkle the medicine into a spoonful of cold applesauce. Swallow the mixture right away without chewing. Do not save it for later use. If you are switched from carvedilol tablets to carvedilol extended-release capsules (Coreg CR), your daily total dose of this medicine may be higher or lower than before. Older adults may be more likely to become dizzy or feel faint when switching from tablets to extended-release capsules. Follow your doctor's instructions. Your blood pressure will need to be checked often. If you need surgery (including cataract surgery), tell your surgeon you currently use this medicine. You may need to stop for a short time. You should not stop using carvedilol suddenly. Stopping suddenly may cause chest pain or a heart attack. Follow your doctor's instructions about tapering your dose. If you are being treated for high blood pressure, keep using this medication even if you feel well.High blood pressure often has no symptoms. You may need to use blood pressure medication for the rest of your life. Carvedilol is only part of a complete treatment program that may also include diet, exercise, and weight control. Follow your doctor's instructions very closely. Store at room temperature away from moisture and heat. What happens if I miss a dose? Take the medicine as soon as you can, but skip the missed dose if it is almost time for your next dose. Do not take two doses at one time. What happens if I overdose? Seek emergency medical attention or call the Poison Help line at . Overdose symptoms may include uneven heartbeats, shortness of breath, bluish- colored fingernails, dizziness, weakness, fainting, and seizure (convulsions). What should I avoid while taking carvedilol? Avoid driving or hazardous activity until you know how this medicine will affect you. Your reactions could be impaired. Avoid getting up too fast from a sitting or lying position, or you may feel dizzy. What are the possible side effects of carvedilol? Get emergency medical help if you have signs of an allergic reaction: hives; difficulty breathing; swelling of your face, lips, tongue, or throat. Call your doctor at once if you have: a light-headed feeling, like you might pass out; slow or uneven heartbeats; cold feeling or numbness in your fingers or toes; chest pain, dry cough, wheezing, chest tightness; heart problems--swelling, rapid weight gain, feeling short of breath; or high blood sugar--increased thirst, increased urination, dry mouth, fruity breath odor. Common side effects may include: dizziness; slow heartbeats; diarrhea; weight gain; dry eyes; or problems wearing contact lenses. This is not a complete list of side effects and others may occur. Call your doctor for medical advice about side effects. You may report side effects to FDA at 2-387-YDN-3382. What other drugs will affect carvedilol? Sometimes it is not safe to use certain medications at the same time. Some drugs can affect your blood levels of other drugs you take, which may increase side effects or make the medications less effective. Other drugs may affect carvedilol, including prescription and cxpz-lyp-fetyifr medicines, vitamins,and herbal products. Tell your doctor about all your current medicines and any medicine you start or stop using. Where can I get more information? Your pharmacist can provide more information about carvedilol. Remember, keep this and all other medicines out of the reach of children, never share your medicines with others, and use this medication only for the indication prescribed. Every effort has been made to ensure that the information provided by [employer] is accurate, up-to-date, and complete, but no guarantee is made to that effect. Drug information contained herein may be time sensitive. [employer] information has been compiled for use by healthcare practitioners and consumers in the [place] and therefore [employer] does not warrant that uses outside of the [place] are appropriate, unless specifically indicated otherwise. [employer] drug information does not endorse drugs, diagnose patients or recommend therapy. [employer] drug information isan informational resource designed to assist licensed healthcare practitioners in caring for their p atients and/or to serve consumers viewing this service as a supplement to, and not a substitute for, the expertise, skill, knowledge and judgment of healthcare practitioners. The absence of a warningfor a given drug or drug combination in no way should be construed to indicate that the drug or drug combination is safe, effective or appropriate for any given patient. [employer] does not assume any responsibility for any aspect of healthcare administered with the aid of information [employer] provides. The information contained herein is not intended to cover all possible uses, directions, precautions, warnings, drug interactions, allergic reactions, or adverse effects. If you have questions about the drugs you are taking, check with your doctor, nurse or pharmacist. Copyright 4234-2839 [employer]. Version: 16.01. Revision Date: 08/04/2018. magnesium oxide (mag NEE see um OCK side) MagGel, Jansen' Cramp-free, Uro-Mag What is the most important information I should know about magnesium oxide? Before you take magnesium oxide, tell your doctor about all your medical conditions or allergies, and all the medicines you are using. Also make sure your doctor knows if you are or breast-feeding. In some cases, you may not be able to take magnesium oxide, or you may need a dose adjustment or special precautions. What is magnesium oxide? Magnesium is a naturally occurring mineral. Magnesium is important for many systems in the body especially the muscles and nerves. Magnesium oxide is used as a supplement to maintain adequate magnesium in the body. Magnesium oxide is also used as an antacid to treat indigestion, or as a laxative to relieve occasional constipation. Magnesium oxide may also be used for purposes not listed in this medication guide. What should I discuss with my healthcare provider before taking magnesium oxide? You should not use magnesium oxide if you are allergic to it. Ask a doctor or pharmacist if it is safe for you to use this medicine if you have other medical conditions, especially: kidney disease; heart disease; nausea, vomiting; a blockage in your intestines; low levels of calcium in your blood; or a sudden change in bowel habits for 2 weeks or longer. It is not known whether magnesium oxide will harm an unborn baby. Ask a doctor before using this medicine if you are . It is not known whether magnesium oxide passes into breast milk or if it could affect a nursing baby. Ask a doctor before using this medicine if you are breast-feeding. Do not give this medicine to a child without medical advice. Magnesium oxide should not be given to a child younger than 6 years old. How should I take magnesium oxide? Use exactly as directed on the label, or as prescribed by your doctor. Do not use in larger or smaller amounts or for longer than recommended. Take this medicine with a full glass of water. When using this medicine as a laxative, it may be best to take your dose at bedtime. Magnesium oxide may be taken with food if it upsets your stomach. Call your doctor if your symptoms do not improve after 7 days of treatment, or if symptoms get worse. Store at room temperature away from moisture and heat. What happens if I miss a dose? Since magnesium oxide is sometimes used when needed, you may not be on a dosing schedule. If you are on a schedule, take the missed dose as soon as you remember. Skip the missed dose if it is almost time for your next scheduled dose. Do not take extra medicine to make up the missed dose. What happens if I overdose? Seek emergency medical attention or call the Poison Help line at . Overdose symptoms may include nausea, vomiting, weakness, breathing problems, slow reflexes, weak pulse, extreme drowsiness, and feeling dizzy or light-headed. What should I avoid while taking magnesium oxide? Magnesium oxide can make it harder for your body to absorb other medicines you take by mouth. Avoidtaking other medicines within 2 hours before or 2 hours after you take magnesium oxide. You may need to wait 4 hours to take your other medicines after taking magnesium oxide. Ask your doctor how to best schedule your medications. What are the possible side effects of magnesium oxide? Get emergency medical help if you have signs of an allergic reaction: hives; difficult breathing; swelling of your face, lips, tongue, or throat. Stop using magnesium oxide and call your doctor at once if you have: rectal bleeding; coughing up blood or vomit that looks like coffee grounds; bloody or tarry stools; or no bowel movement after using magnesium oxide as a laxative. Common side effects may include: diarrhea; or upset stomach. This is not a complete list of side effects and others may occur. Call your doctor for medical advice about side effects. You may report side effects to FDA at 4-710-LMY-4528. What other drugs will affect magnesium oxide? Ask a doctor or pharmacist if it is safe for you to take magnesium oxide if you are also using any of the following drugs: an antibiotic; a diuretic or 'water pill'; penicillamine; a blood thinner--warfarin, Coumadin, Jantoven; or medicine to treat osteoporosis or Paget's disease--alendronate, ibandronate, risedronate, Fosamax, Boniva, Actonel, and others. This list is not complete. Other drugs may interact with magnesium oxide, including prescription and kwau-tzo-eilyber medicines, vitamins, and herbal products. Not all possible interactions are listed in this medication guide. Where can I get more information? Your pharmacist can provide more information about magnesium oxide. Remember, keep this and all other medicines out of the reach of children, never share your medicines with others, and use this medication only for the indication prescribed. Every effort has been made to ensure that the information provided by [employer] is accurate, up-to-date, and complete, but no guarantee is made to that effect. Drug information contained herein may be time sensitive. [employer] information has been compiled for use by healthcare practitioners and consumers in the [place] and therefore [employer] does not warrant that uses outside of the [place] are appropriate, unless specifically indicated otherwise. [employer] drug information does not endorse drugs, diagnose patients or recommend therapy. [employer] drug information isan informational resource designed to assist licensed healthcare practitioners in caring for their p atients and/or to serve consumers viewing this service as a supplement to, and not a substitute for, the expertise, skill, knowledge and judgment of healthcare practitioners. The absence of a warningfor a given drug or drug combination in no way should be construed to indicate that the drug or drug combination is safe, effective or appropriate for any given patient. [facility] does not assume any responsibility for any aspect of healthcare administered with the aid of information [facility] provides. The information contained herein is not intended to cover all possible uses, directions, precautions, warnings, drug interactions, allergic reactions, or adverse effects. If you have questions about the drugs you are taking, check with your doctor, nurse or pharmacist. Copyright [id number] [facility] [facility] [employer]. Version: 4.01. Revision Date: 08/07/2016. Education Materials Heart Failure Heart failure is a condition in which the heart has trouble pumping blood because it has become weak or stiff. This means that the heart does not pump blood efficiently for the body to work well. Forsome people with heart failure, fluid may back up into the lungs and there may be swelling (edema) in the lower legs. Heart failure is usually a long-term (chronic) condition. It is important for youto take good care of yourself and follow the treatment plan from your health care provider. What are the causes? This condition is caused by some health problems, including: High blood pressure (hypertension). Hypertension causes the heart muscle to work harder than normal. High blood pressure eventually causes the heart to become stiff and weak. Coronary artery disease (CAD). CAD is the buildup of cholesterol and fat (plaques) in the arteries of the heart. Heart attack (myocardial infarction). Injured tissue, which is caused by the heart attack, does notcontract as well and the heart's ability to pump blood is weakened. Abnormal heart valves. When the heart valves do not open and close properly, the heart muscle must pump harder to keep the blood flowing. Heart muscle disease (cardiomyopathy or myocarditis). Heart muscle disease is damage to the heart muscle from a variety of causes, such as drug or alcohol abuse, infections, or unknown causes. These can increase the risk of heart failure. Lung disease. When the lungs do not work properly, the heart must work harder. What increases the risk? Risk of heart failure increases as a person ages. This condition is also more likely to develop in people who: Are overweight. Are male. Smoke or chew tobacco. Abuse alcohol or illegal drugs. Have taken medicines that can damage the heart, such as chemotherapy drugs. Have diabetes. ? High blood sugar (gl (more content not included)... [facility] [id number] Note Date of Service 09/01/2022 Chief Complaint Weakness Subjective Patient seen and evaluated this morning while resting in bed. He states that he is doing well and denies any complaints. Patient has a follow-up appointment with his surgeon this afternoon. He feels that he is making progress with therapy but then adds that he does get winded when he is up walking.Patient stated that that is fine and to be expected after surgery. He reports that he is working onhis incentive spirometer. He denies any fever, chills, cough, shortness of breath, chest pain, nausea or dysuria. All questions answered. Objective Vitals and Measurements T: 36.3 C (Oral) TMIN: 36.3 C (Oral) TMAX: 36.9 C (Oral) HR: 65(Monitored) RR: 20 BP: 110/70 SpO2: 97% Intake and Output 7AM Yesterday to 7AM Today Intake and Output (Last 24 hours) Intake Output Urine Voided 600.00 Total Summary Total Intake 0.00 Total Output 600.00 Fluid Balance -600.00 Physical Exam General: No acute distress. Patient is alert and appropriate. Skin: No rash. Skin is warm, dry and intact. Midline dressing is dry and intact - incision not visualized. Trochar wounds healing well on right side of abdomen. HEENT: Head is normocephalic, atraumatic. Pupils are equal, round and reactive. Neck: Supple. No lymphadenopathy, thyromegaly. Lungs: Bilaterally clear but diminished without crepitation or wheeze. Unlabored. Heart: Heart is regular rhythm, S1, S2. No murmurs, gallops or rubs. Abdomen: Abdomen is soft, nontender. Bowels sounds present in all quadrants. Extremities: No clubbing, cyanosis, or edema. Peripheral pulses palpable. No calf tenderness. Neurological: Patient is awake and alert to person, place and time. Following simple commands, moving all extremities. Weight Current Weight Dosing Weight: 120.1 kg (08/24/22) Current Weight: 117.3 kg (08/28/22) Medications Medications (20) Active Scheduled: (9) acetaminophen 500 mg Tablet 1,000 mg 2 tab(s), Oral, TID amiodarone 200 mg tablet 200 mg 1 tab(s), Oral, qDay bumetanide 1 mg tablet 1 mg 1 tab(s), Oral, qDay carvedilol 12.5 mg tablet 25 mg 2 tab(s), Oral, BID doxycycline hyclate 100 mg Capsule 100 mg 1 cap(s), Oral, BID empagliflozin 10 mg tablet 10 mg 1 tab(s), Oral, qAM magnesium oxide 400 mg Tablet 400 mg 1 tab(s), Oral, BID metronidazole 500 mg Tablet 500 mg 1 tab(s), Oral, q8h rivaroxaban 15 mg tablet 15 mg 1 tab(s), Oral, qHS Continuous: (0) PRN: (11) acetaminophen 325 mg Tablet 650 mg 2 tab(s), Oral, q4h acetaminophen 325 mg Tablet 650 mg 2 tab(s), Oral, q4h Al hydrox/Mg hydrox/simethicone 200-200-20 mg/5 mL Susp UD 15 mL, Oral, q4h benzocaine-menthol (Cepacol Sore Throat) 15 mg-3.6mg lozenge 1 lozenge(s), Oral, q2h docusate sodium 100 mg Capsule 100 mg 1 cap(s), Oral, BID guaifenesin 100 mg/5 mL 120 mL liquid 200 mg 10 mL, Oral, q4h melatonin 3 mg tablet 6 mg 2 tab(s), Oral, qHS menthol (Biofreeze) gel packet 1 karie, Topical, TID oxycodone 5 mg tablet (immediate release) 5 mg 1 tab(s), Oral, q4h polyethylene glycol 3350 - UD packet 17 gram(s) 15 mL, Oral, BID tiZANidine 4 mg tablet 4 mg 1 tab(s), Oral, q8h Lab Results 09/01 05:30 WBC: 6.0 Hgb: 9.6 L Hct: 28.7 L Platelet: 385 Neutrophil %: 68.1 Glucose Level: 119 H Sodium Level: 137 Potassium Level: 4.7 BUN: 29 H Creatinine Lvl (s): 1.51 H 08/31 05:10 Glucose Level: 114 H Sodium Level: 138 Potassium Level: 4.4 BUN: 25 H Creatinine Lvl (s): 1.41 H EKG No qualifying data available. Assessment/Plan 1. Asthenia Acute, new onset, s/p lengthy hospitalization *Continue PT and OT at therapy direction. *guest services lead following for discharge planning. 2. S/P hernia repair Acute, s/p hernia repair *Continue doxycycline and metronidazole for 10 days, stop date 09/03/2022. *Follow-up with surgeon as scheduled today. *Continue oxycodone 5 mg PO q4 hours PRN for pain. *Continue Tylenol 1000 mg PO TID. 3. HFrEF (heart failure with reduced ejection fraction) Chronic, not in exacerbation *Continue Bumex 1 mg PO BID as needed. 4. PERSISTENT ATRIAL FIBRILLATION Chronic *Continue amiodarone, carvedilol and rivaroxaban at current doses. 5. CORONARY ARTERY DISEASE, OCCLUSIVE Chronic *Patient denies any chest pain, *Continue current home medications. DVT prophylaxis with rivaroxaban. Code status: Full Code. Labs, diagnostic test and progress notes reviewed as noted in HPI. Plan of care discussed with patient. All questions answered. Patient verbalizes understanding and is agreeable with plan of care. This case was discussed with collaborating physician, Dr. Polo Durbin. Time Spent 35 minutes Digitally Signed by JESS DUMONT on 09/01/2022 02:53 PM [facility]05-19-2023 Note Date of Service 08/28/2022 Chief Complaint Weakness Subjective Patient seen and evaluated this morning while resting in bed. He states that he is doing well this morning and has no new problems or concerns. He feels that he is improving with therapy and getting stronger every day. Nursing states that patient was concerned about loose stools overnight. He is aware that he is on Miralax and wonders if that should be held for a few days. Patient advised that wecan hold the Miralax for now but he is on narcotics. We do want to make sure he does not become constipated. Patient agreeable to holding Miralax for a day or two. He denies any fever, chills, cough,shortness of breath, chest pain, abdominal pain, nausea or dysuria. All questions answered. Objective Vitals and Measurements T: 36.8 C (Oral) TMIN: 36.7 C (Oral) TMAX: 36.8 C (Oral) HR: 79 RR: 16 BP: 108/73 SpO2: 95% WT: 117.3 kg Intake and Output 7AM Yesterday to 7AM Today Intake and Output (Last 24 hours) Intake Oral Intake 360.00 Output Urine Voided 975.00 Stool Count 2.00 Total Summary Total Intake 360.00 Total Output 975.00 Fluid Balance -615.00 Physical Exam General: No acute distress. Patient is alert and appropriate. Skin: No rash. Skin is warm, dry and intact. Huge hematoma noted on right side/flank area. HEENT: Head is normocephalic, atraumatic. Pupils are equal, round and reactive. Neck: Supple. No lymphadenopathy, thyromegaly. Lungs: Bilaterally clear but diminished without crepitation or wheeze. Unlabored. Heart: Heart is regular rhythm, S1, S2. No murmurs, gallops or rubs. Abdomen: Abdomen is soft, nontender, obese. Bowels sounds present in all quadrants. Surgical incisions noted on right side of abdomen - healing. Surgical dressing noted to left side of abdomen - wound not visualized. Extremities: No clubbing, cyanosis, or edema. Peripheral pulses palpable. No calf tenderness. Neurological: Patient is awake and alert to person, place and time. Following simple commands, moving all extremities. Weight Current Weight Dosing Weight: 120.1 kg (08/24/22) Current Weight: 117.3 kg (08/28/22) Medications Medications (20) Active Scheduled: (9) acetaminophen 500 mg Tablet 1,000 mg 2 tab(s), Oral, TID amiodarone 200 mg tablet 200 mg 1 tab(s), Oral, qDay bumetanide 1 mg tablet 1 mg 1 tab(s), Oral, qDay carvedilol 12.5 mg tablet 25 mg 2 tab(s), Oral, BID doxycycline hyclate 100 mg Capsule 100 mg 1 cap(s), Oral, BID empagliflozin 10 mg tablet 10 mg 1 tab(s), Oral, qAM magnesium oxide 400 mg Tablet 400 mg 1 tab(s), Oral, BID metronidazole 500 mg Tablet 500 mg 1 tab(s), Oral, q8h rivaroxaban 15 mg tablet 15 mg 1 tab(s), Oral, qHS Continuous: (0) PRN: (11) acetaminophen 325 mg Tablet 650 mg 2 tab(s), Oral, q4h acetaminophen 325 mg Tablet 650 mg 2 tab(s), Oral, q4h Al hydrox/Mg hydrox/simethicone 200-200-20 mg/5 mL Susp UD 15 mL, Oral, q4h benzocaine-menthol (Cepacol Sore Throat) 15 mg-3.6mg lozenge 1 lozenge(s), Oral, q2h docusate sodium 100 mg Capsule 100 mg 1 cap(s), Oral, BID guaifenesin 100 mg/5 mL 120 mL liquid 200 mg 10 mL, Oral, q4h melatonin 3 mg tablet 6 mg 2 tab(s), Oral, qHS menthol (Biofreeze) gel packet 1 karie, Topical, TID oxycodone 5 mg tablet (immediate release) 5 mg 1 tab(s), Oral, q4h polyethylene glycol 3350 - UD packet 17 gram(s) 15 mL, Oral, BID tiZANidine 4 mg tablet 4 mg 1 tab(s), Oral, q8h Lab Results 08/27 05:13 Glucose Level: 116 H Sodium Level: 138 Potassium Level: 4.1 BUN: 25 H Creatinine Lvl (s): 1.49 H EKG No qualifying data available. Assessment/Plan 1. Asthenia Acute, new onset, s/p lengthy hospitalization *Continue PT and OT at therapy direction. *guest services lead following for discharge planning. 2. S/P hernia repair Acute, s/p hernia repair *Continue doxycycline and metronidazole for 10 days, stop date 09/03/2022. *Follow-up with surgeon as scheduled. *Continue oxycodone 5 mg PO q4 hours PRN for pain. *Continue Tylenol 1000 mg PO TID. 3. HFrEF (heart failure with reduced ejection fraction) Chronic, not in exacerbation *Continue Bumex 1 mg PO BID as needed. 4. PERSISTENT ATRIAL FIBRILLATION Chronic *Continue amiodarone, carvedilol and rivaroxaban at current doses. 5. CORONARY ARTERY DISEASE, OCCLUSIVE Chronic *Patient denies any chest pain, *Continue current home medications. DVT prophylaxis with rivaroxaban. Code status: Full Code. Labs, diagnostic test and progress notes reviewed as noted in HPI. Plan of care discussed with patient. All questions answered. Patient verbalizes understanding and is agreeable with plan of care. This case was discussed with collaborating physician, Dr. Scott Cee. Time Spent 35 minutes Digitally Signed by JESS DUMONT on 08/28/2022 01:22 PM [facility]05-15-2023 Note Date of Service 08/24/2022 Chief Complaint Weakness pain History of Present Illness 72-year-old male with past medical history significant for atrial fibrillation on Xarelto, type 2 diabetes mellitus, CAD, HFpEF, CKD, HLD. Patient originally presented to [facility] emergency department on 08/14/[address] abdomen pelvis showed a periumbilical hernia that contains a 6 loop of small bowel and some fluid. ER physician attempted to reduce in this was unsuccessful without constant pressure. It was recommended that patient be admitted and he declined. He then returned to [facility] emergency department on 08/16/2022 for continued abdominal pain. Repeat CT showed small bowel obstruction with a transition point at the umbilical hernia which contains a short loop of small bowel. He was taken tothe emergency department and underwent attempted laparoscopic assisted robotic umbilical hernia repair but was converted to open, small bowel resection with primary anastomosis and primary closure with repair of umbilical hernia. His diet was advanced slowly. He was weak and evaluated by therapy with recommendations for skilled rehab. Review of Systems See HPI for specific ROS. All other systems reviewed and negative. Physical Exam Vitals and Measurements T: 36.9 C (Oral) HR: 87 BP: 97/66 SpO2: 98% HT: 187.96 cm WT: 120.1 kg BMI: 33.99 Weight Dosing Weight: 120.1 kg (08/24/22) GEN: Appears chronically ill EYES: No conjunctival erythema, drainage. EOMI EARS: Hearing grossly intact. NOSE: No nasal discharge. THROAT: Oral cavity and pharynx pink and moist. CHEST: Normal S1 and S2. Rhythm is regular. Clear to auscultation, without rales, rhonchi, wheezing. ABD: Positive bowel sounds x 4 quads. Soft, nondistended, nontender. EXT: No significant deformity or joint abnormality. 2-3+ pitting edema BLE.. Peripheral pulses intact. NEURO: Sensation grossly intact SKIN: Laparoscopic incisions clean, dry, well approximated. Large right flank ecchymotic area from fall prior to admission. PSYCH: The mental examination revealed the patient was alert and oriented x 4 Assessment/Plan 1. Asthenia 2. S/P hernia repair 3. HFrEF (heart failure with reduced ejection fraction) 4. PERSISTENT ATRIAL FIBRILLATION 5. CORONARY ARTERY DISEASE, OCCLUSIVE Asthenia consult PT and OT S/p hernia repair patient is postoperative day #8. Doxycycline and metronidazole x10 days. Stop date 09/03/2022. Plan for follow-up with surgeon in 1 week. Add oxycodone 5mg q4h prn pain. Tylenol 1000mg TID. HFrEF not in acute exacerbation. At home patient takes Bumex 1 mg twice daily as needed. Persistent atrial fibrillation continue amiodarone, carvedilol, rivaroxaban CAD continue home medications Labs, diagnostics, and progress notes reviewed as noted in HPI Code Status: Full code Plan of care discussed with patient. All questions answered. Patient verbalizes understanding is agreeable to plan of care. This dictation was performed using voice recognition software and may include grammatical and/or spelling errors. Problem List/Past Medical History Ongoing Aneurysm, thoracic aortic Aortic root dilation CORONARY ARTERY DISEASE, OCCLUSIVE CRF (CHRONIC RENAL FAILURE), STAGE 2 (MILD) ELEVATED GLUCOSE Encounter for monitoring cardiotoxic drug therapy Fatigue FISTULA, CORONARY ARTERY HFrEF (heart failure with reduced ejection fraction) HISTORY OF CHRONIC BACK PAIN Hyperlipidemia Left-sided weakness/bilateral frontoparietal foci of acute ischemia LOW HDL (UNDER 40) Newly diagnosed diabetes HgbA1C 6.9 OBESITY (BMI 30-39.9) PERSISTENT ATRIAL FIBRILLATION PNEUMOCOCCAL VACCINATION GIVEN Postoperative anemia Preop cardiovascular exam RECEIVED INFLUENZA VACCINATION AT HOSPITAL RIGHT BUNDLE-BRANCH BLOCK SCOLIOSIS/KYPHOSCOLIOSIS Type II diabetes mellitus Historical Elevated glucose Procedure/Surgical History 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/2021 Cardioversion: 06/16/21 CT angiography of chest with contrast: 06/04/21 Echocardiogram: 11/21/20 Aortic valve replacement and aortoplasty: 11/19/20 Cardioversion: 01/26/19 Stress testing using pharmacologic-induced stress: 10/20/18 Cardiac catheterization: 10/18/18 Hernia repair Colonoscopy Medications Home Medications (8) Active amiodarone 200 mg oral tablet 200 mg = 1 tab(s), Oral, qDay bumetanide 1 mg oral tablet 1 mg = 1 tab(s), PRN, Oral, BID carvedilol 25 mg oral tablet 25 mg = 1 tab(s), Oral, BID doxycycline hyclate 100 mg oral capsule 100 mg = 1 cap(s), Oral, BID Farxiga 10 mg oral tablet 10 mg = 1 tab(s), Oral, qDay metroNIDAZOLE 500 mg oral tablet 500 mg = 1 tab(s), Oral, q8h Xarelto 15 mg oral tablet 15 mg = 1 tab(s), Oral, qHS Zanaflex 4 mg oral capsule 4 mg = 1 cap(s), PRN, Oral, q8h Allergies penicillin (Skin breakdown) Social History Alcohol Use: Past., 05/13/2022 Home/Environment Domestic Concerns: None. Living situation: Home/Independent., 06/16/2021 Nutrition/Health Caffeine intake amount: 2 cups per week., 05/13/2022 Type of diet: Regular. Appetite Excellent. Eating Difficulties None., 06/16/2021 Substance Abuse Use: Current. Type: Marijuana. Frequency: 1-2 times per week., 05/13/2022 Tobacco Nicotine Use: Never (less than 100 in lifetime)., 05/19/2019 Family History Cancer: Mother, Father, Sister and Brother. Immunizations pneumococcal 13-valent conjugate vaccine: 0.5 unknown unit (06/03/17) pneumococcal 23-valent vaccine(Pneumovax: 0.5 unknown unit (02/08/19) SARS-CoV-2 (COVID-19) mRNA-1273 vaccine: 0.5 unknown unit (08/02/20) SARS-CoV-2 (COVID-19) mRNA-1273 vaccine: 0.5 unknown unit (07/05/20) tetanus/diphth/pertuss (Tdap) adult/adol: 0 unknown unit (01/30/16) Code Status Code Status - Ordered -- 08/24/22 15:23:00 EDT, Full Code, Constant Order Digitally Signed by FRANKLYN RESTREPO on 08/24/2022 04:08 PM [facility]05-15-2023 Evaluation + Plan noteExtracted from: Title:History and Physical Author:FRANKLYN RESTREPO Date:08/24/22 1. Asthenia 2. S/P hernia repair 3. HFrEF (heart failure with reduced ejection fraction) 4. PERSISTENT ATRIAL FIBRILLATION 5. CORONARY ARTERY DISEASE, OCCLUSIVE Asthenia consult PT and OT S/p hernia repair patient is postoperative day #8. Doxycycline and metronidazole x10 days. Stop date 09/03/2022. Plan for follow-up with surgeon in 1 week. Add oxycodone 5mg q4h prn pain. Tylenol 1000mg TID. HFrEF not in acute exacerbation. At home patient takes Bumex 1 mg twice daily as needed. Persistent atrial fibrillation continue amiodarone, carvedilol, rivaroxaban CAD continue home medications Labs, diagnostics, and progress notes reviewed as noted in HPI Code Status: Full code Plan of care discussed with patient. All questions answered. Patient verbalizes understanding is agreeable to plan of care. This dictation was performed using voice recognition software and may include grammatical and/or spelling errors. Future Appointments Appointment Date:09/21/2022 02:00:00 PM Scheduled Provider:DELMAR MORENO MD Location:[facility] Appointment Type:PM OV Future Scheduled Tests Laboratory* Basic Metabolic Panel 09/25/21 * Basic Metabolic Panel 10/23/21 * Basic Metabolic Panel 11/20/21 * Basic Metabolic Panel 12/18/21 * Basic Metabolic Panel 07/20/22 * Thyroid Stimulating Hormone 09/19/22 * Complete Blood Count 09/19/22 * Complete Blood Count 03/18/22 * Complete Metabolic Panel 09/19/22 * N-Terminal proBNP 09/25/21 * N-Terminal proBNP 10/23/21 * N-Terminal proBNP 11/20/21 * N-Terminal proBNP 12/18/21 * N-Terminal proBNP 09/19/22 * N-Terminal proBNP 03/18/22 Radiology* CT Angiography Chest w/ Contrast 06/19/23 * XR Chest 2 Views (PA & Lateral) 12/26/21 [facility] 05-15-2023 [facility] Hospital Progress note Date of Service 08/24/2022 Chief Complaint Postoperative pain, postsurgical Subjective Patient seen resting supine in bed this morning, states he did have a large bowel movement yesterday and has continued to pass large amounts of flatus. Denies any complaints of nausea or vomiting, patient tolerating a soft diet without difficulties. States has been able to ambulate with assistance. Objective Vitals and Measurements T: 37.3 C (Oral) TMIN: 37.2 C (Oral) TMAX: 37.3 C (Oral) HR: 83 RR: 16 BP: 97/63 SpO2: 97% Intake and Output 7AM Yesterday to 7AM Today Intake and Output (Last 24 hours) Intake Oral Intake 480.00 Supplement Intake 240.00 Output Urine Voided 800.00 Stool Count 0.00 Total Summary Total Intake 720.00 Total Output 800.00 Fluid Balance -80.00 Physical Exam General: Awake and alert and in no apparent distress. Able to answer questions and speak in full sentences. Supine in bed. HEENT: Mucous membranes moist and pink. Heart: Regular rate and rhythm. S1-S2 are present. Lungs: Chest rise symmetrical. Respirations unlabored. Clear to auscultation bilaterally. Abdomen: Soft postoperative tenderness noted upon palpation. Nondistended. No guarding or rigidity.Bowel sounds 4 quadrants. Midline incision intact with arun, laparoscopic sites intact and well approximated. No signs of drainage or infection. Extremities: Freely moving. Skin: Normal color for ethnicity. No pallor or diaphoresis. No jaundice. Psychiatric: Calm and cooperative. Weight Dosing Weight: 113.6 kg (08/17/22) Dosing Weight: 113.6 kg (08/16/22) Medications Medications (16) Active Scheduled: (7) amiodarone 200 mg tablet 200 mg 1 tab(s), Oral, qDay atorvastatin 40 mg tablet 40 mg 1 tab(s), Oral, qDay carvedilol 25 mg tablet 25 mg 1 tab(s), Oral, BID ceFAZolin syringe 2 gram(s) 20 mL, IV Push (INT), q8h docusate-senna (Senokot S) 50 mg-8.6 mg Tablet 1 tab(s), Oral, BID polyethylene glycol 3350 - UD packet 17 gram(s) 15 mL, Oral, BID rivaroxaban 20 mg tablet 20 mg 1 tab(s), Oral, qHS Continuous: (0) PRN: (9) benzocaine-dextromethorphan 7.5 mg-5 mg Kay 1 lozenge(s), Oral, q2h dextrose 50% Solution Disp syringe 50 mL 12.5 gram(s) 25 mL, IV Push, AsDirected morphine 2 mg/mL 1 mL syringe 2 mg 1 mL, IV Push, q3h morphine 4 mg/mL 1mL INJ 5 mg 1.25 mL, IV Push, q3h ondansetron 2 mg/ 1 mL 2 mL INJ 4 mg 2 mL, IV Push, q4h oxycodone 5 mg tablet (immediate release) 5 mg 1 tab(s), Oral, q4h prochlorperazine 10 mg/2 mL vial 5 mg 1 mL, IV Push, q6h tiZANidine 4 mg tablet 4 mg 1 tab(s), Oral, q8h tramadol 50 mg Tablet 50 mg 1 tab(s), Oral, q4h Lab Results No 36 Hour Lab Data Assessment/Plan Abdominal pain Acute post-operative pain Hernia This patient is a 72-year-old male who is postoperative day #8 status post attempted laparoscopic assisted robotic umbilical hernia repair converted to open, small bowel resection with primary anastomosis and primary closure of the hernia. Patient remains hemodynamically stable, Tmax 37.4 Voiding without difficulties. Patient did have a large bowel movement yesterday. On examination, the patient states he feels much better today. States he had a very large bowel movement yesterday in the afternoon and has continued to pass large amounts of flatus. Abdomen is round, soft, mild postoperative tenderness noted. Laparoscopic sites are intact and well approximated with surgical glue. Midline incision is intact with surgical arun. Bowel sounds are present. Patientis able to tolerate a soft diet without any nausea or vomiting. States he is ambulating with assistance. Patient is scheduled to go to [facility] bed for further rehab. He is stable for dischargeto rehab when bed available. Case discussed with Dr. Stern, please see his addendum to follow with further assessment/plan. Digitally Signed by CONCEPCION JONES on 08/24/2022 08:18 AM Digitally Signed by CONCEPCION JONES on 08/24/2022 08:33 AM [id number] Discharge Instructions Thank you for allowing [facility] to assist you with your healthcare needs. The following is importantdischarge information regarding your hospital visit. Your Care Team HODA GRAYSON MD Your Diagnosis Abdominal pain Acute post-operative pain Hernia What to do next Instructions From Your Doctor Postoperative Activity/Wound Care Recommendations: No lifting or pushing objects greater than 10-15 pounds and no strenuous activity. Walking, using the stairs, and riding in a car are acceptable forms of activity and are encouraged in the postoperative period. Incentive spirometry use and deep breathing/coughing exercises are also encouraged afterdischarge to prevent respiratory complications such as pneumonia and blood clots. No driving while taking narcotic pain medication. You may shower. No tub bathing or soaking your incisions, and no pool/hot tub use until cleared by your surgeon. Wash your incisions daily with a mild soap and water and pat dry. Postoperative Medication Recommendations/Education: It is recommended that you alternate between 650-1000 mg of Tylenol and 400-800 mg Motrin (Advil orIbuprofen) every 6 hours as needed to optimize pain control after surgery. A temporary prescriptionfor a narcotic pain medication is typically provided to you postoperatively and should only be usedfor breakthrough pain as narcotics increase the risk for constipation, dependency, overdose and respiratory depression. Constipation after surgery is a very common concern for patients after discharge from the hospital.This is related to anesthesia and analgesia (pain medication.) Patients are encouraged to take overthe counter stool softeners (such as Colace) and over the counter laxatives ( such as Miralax) as needed for constipation. Additional medications that can be taken for postoperative constipation include milk of magnesia, Metamucil, and Senokot. 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 Surgery Follow Up Appointments Follow Up with REYNALDO STERN DO, Surgery When 09/01/2022 03:45 PM EDT Where: [address] [facility] [place] [address] [facility] [place] [address]- [phone] Follow Up with [facility]CU, When Follow Up with HODA GRAYSON MD When Within 1-2 days, only if needed Why: As needed Where: [address] [place] [address]- The Following Activity and Diet Have Been Ordered for You Transfer of Care Activity - Ordered -- Activity As Tolerated, 08/24/22 9:45:00 EDT Transfer of Care Diet - Ordered -- Type of Diet: Regular Diet, 08/24/22 9:45:00 EDT The Following Equipment Has Been Ordered for You Discharge Home Equipment Transfer of Care Wound Care - Ordered -- Dressing Type: ABD drsg, Abdomen, Change Dressing: Daily, Please cleanse abdominal incision withsoap and water and cover with a dry sterile dressing daily and as needed., 08/24/22 9:45:00 EDT The Following Treatments Have Been Ordered for You Discharge Labs No qualifying data available. Discharge Radiology No qualifying data available. Other Therapies No qualifying data available. Post Acute Orders Transfer of Care Admission Level of Care - Ordered -- Level of Care SNF, 08/24/22 10:05:10 EDT Transfer of Care Code Status - Ordered -- Full Code, Constant Order Transfer of Care Communication Order - Ordered -- Expect less than 30 day stay., 08/24/22 10:05:10 EDT Transfer of Care Orders Electronically Signed By - Ordered -- 08/24/22 9:45:00 EDT, REYNALDO STERN DO Transfer of Care Prognosis - Ordered -- Good, Patient Aware: Yes Transfer of Care Rehab Potential - Ordered -- Rehab potential good, 08/24/22 9:45:26 EDT Someone Will Contact You Regarding These Home Health Referrals No home referrals have been ordered for you. No one will call you. Allergies penicillin (Skin breakdown) Medications Please ask your primary doctor or pharmacist before taking any other medication not listed, including over the counter drugs, herbal medications, vitamins and or supplements as they may interact withyour home medications. What How Much When Instructions Last Dose New doxycycline (doxycycline hyclate 100 mg oral capsule) 1 cap by mouth Two (2) times a day Duration: 10 Days Printed Prescription New metroNIDAZOLE (metroNIDAZOLE 500 mg oral tablet) 1 tab(s) by mouth Every 8 hours Duration: 10 Days Printed Prescription Unchanged amiodarone (amiodarone 200 mg oral tablet) 1 tab(s) by mouth Once a day Unchanged bumetanide (bumetanide 1 mg oral tablet) 1 tab(s) by mouth Two (2) times a day as needed for fluid retention Unchanged carvedilol (carvedilol 25 mg oral tablet) 1 tab(s) by mouth Two (2) times a day Unchanged dapagliflozin (Farxiga 10 mg oral tablet) 1 tab(s) by mouth Once a day Unchanged rivaroxaban (Xarelto 15 mg oral tablet) 1 tab(s) by mouth Daily at bedtime with food with evening meal Unchanged tiZANidine (Zanaflex 4 mg oral capsule) 1 cap by mouth Every 8 hours as needed for for muscle spasm Please take this list to your next doctor s visit. Bring all medications you take, including over the counter medications, herbals and other supplements with you to your doctor s visit. Patients and families are reminded to discard old lists and to update any records with all medication providers or retail pharmacies. Additional Information VACCINATE! IT SAVES LIVES! Members of the community who have not yet received the COVID-19 vaccine and would like to receive it can visit one of [facility] vaccine clinics. There are many vaccine clinic locations within the [facility]. For locations and available times, please visit [email or web address].[email or web address] It is important to note that some COVID mobile vaccine clinics are held outdoors and may be canceled in rainy or stormy conditions. To learn more about pediatric vaccinations (ages 5-11), we invite you to visit the [facility] webpage. [email or web address].[email or web address]/[email or web address] [email or web address] learn more about the COVID-19 vaccine, we invite you to visit the CDC website for a list of frequently asked questions.https://www.cdc.gov/coronavirus/2019-ncov/vaccines/faq.html [employer] Patient Portal Access Instructions: Stay connected with your healthcare team and access your personal medical information anytime with the [employer] Patient Portal. Please follow the directions below to create your [employer] account: 1.Access the email account you provided upon registration to the hospital/physician office.2.Look for an invitation email from [facility].3.Open the email and access the invitation link: AcceptInvitation to OpenText.4.Fill in the required crockett to create your account. To access your account, visit [facility]. Click the blue button labeled Access Patient Portal and then log in with the username and password that you created in the steps above. You will be able to view your test results, lab results, a summary of your visits, upcoming appointments and more. There is also a convenient messaging option where you can send secure messages to your p rovider. In addition, you will have the ability to download any documents or summaries to your computer and/or send the information securely to a physician. Remember that your healthcare information is confidential, so carefully consider who you will allowto register on the [facility] Patient Portal for access to your information. You can also access the [facility] on the [facility]. Simply click on Patient Portal and then log into your account. If you would like to receive a full copy of your medical records, please contact the [facility] Medical Records Department by calling [phone], Wednesday through Wednesday between 8 a.m. and 4:30 p.m. HOW TO SAFELY DISPOSE OF PRESCRIPTION MEDICATIONS Please use one of the following methods to safely dispose of your unused medications. 1.Use a drug disposal kit: the drug disposal pouch allows you to safely discard your old and unuseddrugs. Ask your nurse to give you one when you are discharged.2.Visit a local take-back location: Many local pharmacies and police departments have programs that collect old and unwanted prescriptiondrugs. Call your local pharmacy or go to http://Mapflow.Meddik/2M0Qa4j to find one close to you.3.Make use of household items: Use cat litter or old coffee grounds to dispose medications if other options arenot available. Mix your drugs with these household products, seal them in an airtight container andthrow it into the garbage. Call [facility]: [phone] to be sure your drugs can be disposed of in this way. Some medicines may require a different approach.4.Never flush your medications down the toilet. IF YOU HAVE BEEN PRESCRIBED AN OPIOID FOR PAIN If you have been prescribed an opioid (such as hydrocodone, oxycodone or morphine), it is critical to understand the possible side effects and risks of opioid pain medications. Even when taken as directed, opioids can have several side effects including: Tolerance, meaning you might need to take more of a medication for the same pain relief. Nausea, vomiting and/or constipation. Sleepiness, dizziness, dry mouth, confusion, depression or itching. Physical dependence, meaning you have withdrawal symptoms when a medication is stopped, can develop within a few days. KNOW YOUR RESPONSIBILITIES It is important to know exactly how much and how often to take the opioid pain medications you are prescribed. Never take opioids in higher amounts or more often than prescribed. Do not combine opioids with alcohol or other drugs that cause drowsiness, such as benzodiazepines, also known as benzos, including diazepam and alprazolam, muscle relaxants or sleep aids. Never sell or share prescription opioids. This is illegal. Store opioids in a secure place and out of reach of others (including children, family, friends and visitors). The last page of this document has been signed and retained as a CHART COPY. Signatures Patient Education Materials Medication Leaflets My discharge plan and instructions have been reviewed and explained to me and I,JACKY ELLIS understand my current condition and have read and understand these discharge instructions. I have received a written copy of the plan/instructions. If I have questions, I am aware that I should contact my doctor. 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: Date/Time: Relationship to Patient: Witness Name/Signature: Date/Time: [id number] Discharge summary Date of Service 08/24/22 Discharge Diagnosis Umbilical hernia with obstruction, without gangrene (K42.0 - ICD-10-CM) Acute posthemorrhagic anemia (D62 - ICD-10-CM) Other persistent atrial fibrillation (I48.19 - ICD-10-CM) Unspecified systolic (congestive) heart failure (I50.20 - ICD-10-CM) Acute kidney failure, unspecified (N17.9 - ICD-10-CM) Chronic kidney disease, stage 2 (mild) (N18.2 - ICD-10-CM) Atherosclerotic heart disease of [place] coronary artery without angina pectoris (I25.10 - ICD-10-CM) Type 2 diabetes mellitus without complications (E11.9 - ICD-10-CM) Abdominal pain ([id number] - PNED) Acute post-operative pain (G89.18 - ICD-10-CM) Hernia ([id number] - PNED) Additional Orders: Ordered: Discharge,08/24/22 9:46:00 EDT, [facility] Ordered: Transfer of Care Activity,Activity As Tolerated, 08/24/22 9:45:00 EDT Ordered: Transfer of Care Code Status,Full Code, Constant Order Ordered: Transfer of Care Diet,Type of Diet: Regular Diet, 08/24/22 9:45:00 EDT Ordered: Transfer of Care Orders Electronically Signed By,08/24/22 9:45:00 EDT, REYNALDO STERN DO Ordered: Transfer of Care Prognosis,Good, Patient Aware: Yes Ordered: Transfer of Care Rehab Potential,Rehab potential good, 08/24/22 9:45:26 EDT Ordered: Transfer of Care Wound Care,Dressing Type: ABD drsg, Abdomen, Change Dressing: Daily, Please cleanse abdominal incision with soap and water and cover with a dry sterile dressing daily and asneeded., 08/24/22 9:45:00 EDT Hospital Course This patient is a 72-year-old male with past medical history of CAD, A-fib on Xarelto, diabetes mellitus, who presented to the ER with complaints of abdominal pain. Was found to have incarcerated umbilical hernia. He was diagnosed with this on Wednesday in [place] and despite recommendations from theER decided to go home because he was feeling better. Patient's pain persisted and truly worsened through the day and return to the ER for evaluation. Patient had associated emesis with some nausea, denied any vomiting. Patient was admitted to undergo definitive surgical evaluation. Patient was taken to the OR on 08/16/2022, underwent attempted laparoscopic assisted robotic umbilical hernia repair was converted to open, small bowel resection with primary anastomosis and primary closure with repairof umbilical hernia. It was sent to the floor for postoperative management. Patient had a postoperative NG tube for decompression while awaiting return of GI function. Patient's labs remained stable.Continue to have high output from NG tube so it was intact on day 2. NG tube was discontinued on postop day #4, patient was placed on a clear liquid diet and quickly advanced to full liquid diet. Patient did require help with any ambulation, he was seen by PT/OT and was skilled. Patient's diet was very slowly advanced. He was able to have a bowel movement on 08/23/2022. Patient was able to tolerate a regular diet before discharge without any nausea or vomiting. Abdominal sites were intact laparoscopic sites well approximated with surgical glue, midline incision intact with arun. Did have a small amount of drainage from his midline incision, patient to have abdominal dressing remain intactand changed 1-2 times daily depending on drainage. Patient was discharged to [facility] on 08/24/2022 with an oral antibiotic as well as a narcotic pain medication to be used only as needed. Patient will follow-up in the office in 1 week for staple removal. Allergies penicillin (Skin breakdown) Procedures Attempted laparoscopic assisted robotic umbilical hernia repair converted to open with small bowel resection with primary anastomosis and primary closure with repair of umbilical hernia. Consults Consult Skin Team re: Pressure Staging - Ordered -- 08/21/22 19:59:32 EDT Consult to Physician - Ordered -- 08/17/22 1:28:00 EDT, ERNA MCCAULEY DO, Routine, medical management Imaging Results and Diagnostics XR Enteric Tube Placement Result Date: August 19, 2022 Verified By: PITA ASTORGA MD CLINICAL STATEMENT: IMPRESSION: Nonspecific nonobstructed bowel gas pattern. Successful placement orogastrictube. RECOMMENDATIONS:Unavailable XR Enteric Tube Placement Result Date: August 18, 2022 Verified By: CHUCKY SUE MD CLINICAL STATEMENT: IMPRESSION: Nasogastric tube is in satisfactory position. Small bilateral pleural effusions are unchanged. XR Enteric Tube Placement Result Date: August 16, 2022 Verified By: CHUCKY SUE MD CLINICAL STATEMENT: IMPRESSION: Nasogastric tube is in satisfactory position. CT Abd/Pelvis w/ IV Contrast Only Result Date: August 16, 2022 Verified By: FLAVIO OH MD CLINICAL STATEMENT: IMPRESSION: Small bowel obstruction with the transition point at the umbilical hernia,which contains a short loop of small bowel. Mild reactive subcutaneous infiltrative changes around the umbilical hernia. Surgical consultation maybe warranted. Additional stable findings as above. I have personally reviewed the images of this examination and agree with the resident's findings and interpretation. Objective Vitals and Measurements T: 37.3 C (Oral) TMIN: 37.2 C (Oral) TMAX: 37.3 C (Oral) HR: 86 RR: 16 BP: 116/70 SpO2: 97% Weight Dosing Weight: 113.6 kg (08/17/22) Dosing Weight: 113.6 kg (08/16/22) Pending Labs and Studies WBC: 6.9 10^3/mcL (08/22/22 04:10:00) RBC: 3.13 10^6/mcL Low (08/22/22 04:10:00) Hgb: 9.6 G/dL Low (08/22/22 04:10:00) Hct: 28.9 % Low (08/22/22 04:10:00) MCV: 92.3 fL (08/22/22 04:10:00) MCH: 30.7 pg (08/22/22 04:10:00) MCHC: 33.2 G/dL (08/22/22 04:10:00) RDW: 17 % High (08/22/22 04:10:00) Platelet: 230 10^3/mcL (08/22/22 04:10:00) MPV: 7.6 fL (08/22/22 04:10:00) Monocyte Distribution Width: 22.82 High (08/16/22 14:35:00) Neutrophil %: 71 % (08/22/22 04:10:00) Lymphocyte %: 11.4 % Low (08/22/22 04:10:00) Monocyte %: 15.6 % High (08/22/22 04:10:00) Eosinophil %: 1.6 % (08/22/22 04:10:00) Basophil %: 0.4 % (08/22/22 04:10:00) Neutrophil, Absolute: 4.9 10^3/mcL (08/22/22 04:10:00) Lymphocyte, Absolute: 0.8 10^3/mcL Low (08/22/22 04:10:00) Monocyte, Absolute: 1.1 10^3/mcL (08/22/22 04:10:00) Eosinophil, Absolute: 0.1 10^3/mcL (08/22/22 04:10:00) Basophil, Absolute: 0 10^3/mcL (08/22/22 04:10:00) Neutrophil %, Manual: 48 % Low (08/18/22 05:18:00) Lymphocyte %, Manual: 13 % Low (08/18/22 05:18:00) Monocyte %, Manual: 23 % High (08/18/22 05:18:00) Eosinophil %, Manual: 0 % (08/18/22 05:18:00) Basophil %, Manual: 0 % (08/18/22 05:18:00) Bands: 15 % High (08/18/22 05:18:00) Metamyelocyte: 1 % (08/18/22 05:18:00) Nucleated RBC: 0 /100 WBC (08/18/22 05:18:00) Neutrophil, Abs Manual: 2 10^3/mcL Low (08/18/22 05:18:00) Lymphocyte, Abs Manual: 0.5 10^3/mcL Low (08/18/22 05:18:00) Monocyte, Abs Manual: 1 10^3/mcL (08/18/22 05:18:00) Eosinophil, Abs Manual: 0 10^3/mcL (08/18/22 05:18:00) Basophil, Abs Manual: 0 10^3/mcL (08/18/22 05:18:00) Platelet Estimate: Slight Decreased (08/19/22 05:08:00) Anisocytosis: 1+ (08/19/22 05:08:00) Poik: 1+ (08/19/22 05:08:00) Ovalocytes: 1+ (08/19/22 05:08:00) Heparin dose (APTT): Unknown (08/16/22 17:01:00) APTT: 33 seconds (08/16/22 17:01:00) Protime: 16.4 seconds High (08/18/22 08:17:00) PT International Ratio: 1.4 ratio (08/18/22 08:17:00) UA Specimen Type: Clean Catch (08/16/22 14:43:00) UA Color: Yellow (08/16/22 14:43:00) UA Appear: Clear (08/16/22 14:43:00) UA Spec Grav: >=1.030 Abnormal (08/16/22 14:43:00) UA Glucose: >=1000 Abnormal (08/16/22 14:43:00) UA Bili: Negative. (08/16/22 14:43:00) UA Ketones: Trace (08/16/22 14:43:00) UA Blood: Small Abnormal (08/16/22 14:43:00) UA pH: 5.5 (08/16/22 14:43:00) UA Protein: 30 (08/16/22 14:43:00) UA Urobilinogen: 1.0 (08/16/22 14:43:00) UA Nitrite: Negative. (08/16/22 14:43:00) UA Leuk Est: Negative. (08/16/22 14:43:00) UA RBC: 0-2 (08/16/22 14:43:00) UA WBC: 0-2 (08/16/22 14:43:00) UA Squam Epithelial: 0-2 (08/16/22 14:43:00) UA Hyal Cast: 0-2 Abnormal (08/16/22 14:43:00) UA Fine Granular Casts: Rare (08/16/22 14:43:00) Glucose Level: 112 mg/dL (08/22/22 04:10:00) Sodium Level: 138 mEq/L (08/22/22 04:10:00) Potassium Level: 4 mEq/L (08/22/22 04:10:00) Chloride: 102 mEq/L (08/22/22 04:10:00) CO2: 28 mEq/L (08/22/22 04:10:00) Electrolyte Balance: 8 mEq/L (08/22/22 04:10:00) BUN: 31 mg/dL High (08/22/22 04:10:00) Creatinine Lvl (s): 1.18 mg/dL (08/22/22 04:10:00) BUN/Creatinine Ratio: 26.3 ratio High (08/22/22 04:10:00) Calcium Lvl: 8.2 mg/dL Low (08/22/22 04:10:00) Magnesium Lvl: 1.6 mg/dL (08/18/22 05:18:00) Total Protein: 6.1 G/dL (08/17/22 10:25:00) Albumin Level: 3.1 G/dL Low (08/17/22 10:25:00) Globulin: 3 G/dL (08/17/22 10:25:00) A/G Ratio: 1 ratio (08/17/22 10:25:00) Bili Total: 1.6 mg/dL High (08/17/22 10:25:00) Alk Phos: 129 U/L High (08/17/22 10:25:00) AST/SGOT: 14 U/L (08/17/22 10:25:00) ALT/SGPT: 12 U/L (08/17/22 10:25:00) GFR Non-: >60 (08/22/22 04:10:00) GFR : >60 (08/22/22 04:10:00) Hgb A1c: 5.9 % (08/18/22 05:18:00) Lipase Level: 19 U/L (08/16/22 14:35:00) Lactic Acid Lvl: 1.5 mmol/L (08/16/22 14:35:00) Blood Glucose, Capillary: 110 mg/dL (08/24/22 08:37:00) Blood Glucose Testing Reason: Routine (08/23/22 21:31:00) Code Status Code Status - Ordered -- 08/16/22 17:55:00 EDT, Full Code, Constant Order Admission Date 08/16/2022 Discharge Date 08/24/2022 Patient Instructions Postoperative Activity/Wound Care Recommendations: No lifting or pushing objects greater than 10-15 pounds and no strenuous activity. Walking, using the stairs, and riding in a car are acceptable forms of activity and are encouraged in the postoperative period. Incentive spirometry use and deep breathing/coughing exercises are also encouraged afterdischarge to prevent respiratory complications such as pneumonia and blood clots. No driving while taking narcotic pain medication. You may shower. No tub bathing or soaking your incisions, and no pool/hot tub use until cleared by your surgeon. Wash your incisions daily with a mild soap and water and pat dry. Postoperative Medication Recommendations/Education: It is recommended that you alternate between 650-1000 mg of Tylenol and 400-800 mg Motrin (Advil orIbuprofen) every 6 hours as needed to optimize pain control after surgery. A temporary prescriptionfor a narcotic pain medication is typically provided to you postoperatively and should only be usedfor breakthrough pain as narcotics increase the risk for constipation, dependency, overdose and respiratory depression. Constipation after surgery is a very common concern for patients after discharge from the hospital.This is related to anesthesia and analgesia (pain medication.) Patients are encouraged to take overthe counter stool softeners (such as Colace) and over the counter laxatives ( such as Miralax) as needed for constipation. Additional medications that can be taken for postoperative constipation include milk of magnesia, Metamucil, and Senokot. Medications New Prescription doxycycline (doxycycline hyclate 100 mg oral capsule)1 cap by mouth two (2) times a day for 10 Days. Refills: 0. metroNIDAZOLE (metroNIDAZOLE 500 mg oral tablet)1 tab(s) by mouth every 8 hours for 10 Days. Refills: 0. oxyCODONE (oxyCODONE 5 mg oral tablet ( IMMEDIATE release ))1 tab(s) by mouth every 6 hours as needed Pain, scale 7-10 for 3 Days. Refills: 0. Unchanged amiodarone (amiodarone 200 mg oral tablet)1 tab(s) by mouth once a day. Refills: 3. bumetanide (bumetanide 1 mg oral tablet)1 tab(s) by mouth two (2) times a day as needed fluid retention. carvedilol (carvedilol 25 mg oral tablet)1 tab(s) by mouth two (2) times a day. Refills: 3. dapagliflozin (Farxiga 10 mg oral tablet)1 tab(s) by mouth once a day. Refills: 11. rivaroxaban (Xarelto 15 mg oral tablet)1 tab(s) by mouth daily at bedtime. with food with evening meal. Refills: 11. tiZANidine (Zanaflex 4 mg oral capsule)1 cap by mouth every 8 hours as needed for muscle spasm. Follow Up Follow Up with REYNALDO STERN DO, Surgery When 09/01/2022 03:45 PM EDT Where: [address] [facility] [address] [facility] [place] [address]- [phone] Follow Up Appointments No qualifying data available. Follow Up Labs/Studies Discharge Labs No Follow-up Labs Discharge Studies No Follow-up Studies Discharge Diet Transfer of Care Diet - Ordered -- Type of Diet: Regular Diet, 08/24/22 9:45:00 EDT Discharge Activity Transfer of Care Activity - Ordered -- Activity As Tolerated, 08/24/22 9:45:00 EDT Condition on Discharge Stable Readmission Risk/Palliative Score No qualifying data available. Discharge Disposition [facility] bed Information Provided To Patient Time Spent 20 minutes Digitally Signed by CONCEPCION JONES on 08/24/2022 09:59 AM [id number] Progress note Date of Service 08/24/2022 Chief Complaint Postoperative pain, postsurgical Subjective Patient seen resting supine in bed this morning, states he did have a large bowel movement yesterday and has continued to pass large amounts of flatus. Denies any complaints of nausea or vomiting, patient tolerating a soft diet without difficulties. States has been able to ambulate with assistance. Objective Vitals and Measurements T: 37.3 C (Oral) TMIN: 37.2 C (Oral) TMAX: 37.3 C (Oral) HR: 83 RR: 16 BP: 97/63 SpO2: 97% Intake and Output 7AM Yesterday to 7AM Today Intake and Output (Last 24 hours) Intake Oral Intake 480.00 Supplement Intake 240.00 Output Urine Voided 800.00 Stool Count 0.00 Total Summary Total Intake 720.00 Total Output 800.00 Fluid Balance -80.00 Physical Exam General: Awake and alert and in no apparent distress. Able to answer questions and speak in full sentences. Supine in bed. HEENT: Mucous membranes moist and pink. Heart: Regular rate and rhythm. S1-S2 are present. Lungs: Chest rise symmetrical. Respirations unlabored. Clear to auscultation bilaterally. Abdomen: Soft postoperative tenderness noted upon palpation. Nondistended. No guarding or rigidity.Bowel sounds 4 quadrants. Midline incision intact with arun, laparoscopic sites intact and well approximated. No signs of drainage or infection. Extremities: Freely moving. Skin: Normal color for ethnicity. No pallor or diaphoresis. No jaundice. Psychiatric: Calm and cooperative. Weight Dosing Weight: 113.6 kg (08/17/22) Dosing Weight: 113.6 kg (08/16/22) Medications Medications (16) Active Scheduled: (7) amiodarone 200 mg tablet 200 mg 1 tab(s), Oral, qDay atorvastatin 40 mg tablet 40 mg 1 tab(s), Oral, qDay carvedilol 25 mg tablet 25 mg 1 tab(s), Oral, BID ceFAZolin syringe 2 gram(s) 20 mL, IV Push (INT), q8h docusate-senna (Senokot S) 50 mg-8.6 mg Tablet 1 tab(s), Oral, BID polyethylene glycol 3350 - UD packet 17 gram(s) 15 mL, Oral, BID rivaroxaban 20 mg tablet 20 mg 1 tab(s), Oral, qHS Continuous: (0) PRN: (9) benzocaine-dextromethorphan 7.5 mg-5 mg Kay 1 lozenge(s), Oral, q2h dextrose 50% Solution Disp syringe 50 mL 12.5 gram(s) 25 mL, IV Push, AsDirected morphine 2 mg/mL 1 mL syringe 2 mg 1 mL, IV Push, q3h morphine 4 mg/mL 1mL INJ 5 mg 1.25 mL, IV Push, q3h ondansetron 2 mg/ 1 mL 2 mL INJ 4 mg 2 mL, IV Push, q4h oxycodone 5 mg tablet (immediate release) 5 mg 1 tab(s), Oral, q4h prochlorperazine 10 mg/2 mL vial 5 mg 1 mL, IV Push, q6h tiZANidine 4 mg tablet 4 mg 1 tab(s), Oral, q8h tramadol 50 mg Tablet 50 mg 1 tab(s), Oral, q4h Lab Results No 36 Hour Lab Data Assessment/Plan Abdominal pain Acute post-operative pain Hernia This patient is a 72-year-old male who is postoperative day #8 status post attempted laparoscopic assisted robotic umbilical hernia repair converted to open, small bowel resection with primary anastomosis and primary closure of the hernia. Patient remains hemodynamically stable, Tmax 37.4 Voiding without difficulties. Patient did have a large bowel movement yesterday. On examination, the patient states he feels much better today. States he had a very large bowel movement yesterday in the afternoon and has continued to pass large amounts of flatus. Abdomen is round, soft, mild postoperative tenderness noted. Laparoscopic sites are intact and well approximated with surgical glue. Midline incision is intact with surgical arun. Bowel sounds are present. Patientis able to tolerate a soft diet without any nausea or vomiting. States he is ambulating with assistance. Patient is scheduled to go to [facility] for further rehab. He is stable for dischargeto rehab when bed available. Case discussed with Dr. Stern, please see his addendum to follow with further assessment/plan. Digitally Signed by CONCEPCION JONES on 08/24/2022 08:18 AM Digitally Signed by CONCEPCION JONES on 08/24/2022 08:33 AM [id number] Progress note Date of Service 08/23/2022 Subjective No overnight events. Patient resting this morning. Pain is better today. Denies any flatus or bowelmovements. Patient is tolerating a diet. Objective Vitals and Measurements T: 37.4 C (Oral) TMIN: 36.9 C (Oral) TMAX: 37.4 C (Oral) HR: 85(Monitored) RR: 17 BP: 111/74 SpO2: 94% Intake and Output 7AM Yesterday to 7AM Today Intake and Output (Last 24 hours) Intake Oral Intake 120.00 Supplement Intake 480.00 Output Urine Voided 1060.00 Total Summary Total Intake 600.00 Total Output 1060.00 Fluid Balance -460.00 Physical Exam General: A+Ox3 CV: RRR, no MRG Resp: CTAB Abd: Soft, ND, diffuse tenderness to palpation, rebound or guarding, positive bowel sounds Weight Dosing Weight: 113.6 kg (08/17/22) Dosing Weight: 113.6 kg (08/16/22) Medications Medications (16) Active Scheduled: (7) amiodarone 200 mg tablet 200 mg 1 tab(s), Oral, qDay atorvastatin 40 mg tablet 40 mg 1 tab(s), Oral, qDay carvedilol 25 mg tablet 25 mg 1 tab(s), Oral, BID ceFAZolin syringe 2 gram(s) 20 mL, IV Push (INT), q8h docusate-senna (Senokot S) 50 mg-8.6 mg Tablet 1 tab(s), Oral, BID polyethylene glycol 3350 - UD packet 17 gram(s) 15 mL, Oral, BID rivaroxaban 20 mg tablet 20 mg 1 tab(s), Oral, qHS Continuous: (0) PRN: (9) benzocaine-dextromethorphan 7.5 mg-5 mg Kay 1 lozenge(s), Oral, q2h dextrose 50% Solution Disp syringe 50 mL 12.5 gram(s) 25 mL, IV Push, AsDirected morphine 2 mg/mL 1 mL syringe 2 mg 1 mL, IV Push, q3h morphine 4 mg/mL 1mL INJ 5 mg 1.25 mL, IV Push, q3h ondansetron 2 mg/ 1 mL 2 mL INJ 4 mg 2 mL, IV Push, q4h oxycodone 5 mg tablet (immediate release) 5 mg 1 tab(s), Oral, q4h prochlorperazine 10 mg/2 mL vial 5 mg 1 mL, IV Push, q6h tiZANidine 4 mg tablet 4 mg 1 tab(s), Oral, q8h tramadol 50 mg Tablet 50 mg 1 tab(s), Oral, q4h Lab Results 08/22 04:10 WBC: 6.9 Hgb: 9.6 L Hct: 28.9 L Platelet: 230 Neutrophil %: 71.0 Glucose Level: 112 Sodium Level: 138 Potassium Level: 4.0 BUN: 31.0 H Creatinine Lvl (s): 1.18 EKG No qualifying data available. Assessment/Plan Abdominal pain Acute post-operative pain Hernia Orders: tiZANidine, Start: 08/22/22 15:42:00 EDT, Dose = 4 mg, = 1 tab(s), Oral, q8h, PRN, Muscle spasm, 08/22/22 15:42:00 EDT Patient is a 72-year-old male postoperative day 7 status post incarcerated ventral hernia pair withsmall bowel resection overall abdomen remains benign., Continue aggressive bowel regimen. Likely discharge home tomorrow. Digitally Signed by JERROD LEIGH MD on 08/23/2022 08:39 AM [id number] [facility] Progress note Date of Service 08/22/2022 Subjective No overnight events. Patient resting this morning. He is complaining diffuse abdominal pain. He reports passing flatus over denies bowel movement. Patient is tolerating regular diet. States he had 1 episode of emesis overnight. Objective Vitals and Measurements T: 37.1 C (Oral) TMIN: 36.9 C (Oral) TMAX: 37.3 C (Oral) HR: 87 RR: 16 BP: 119/76 SpO2: 96% Intake and Output 7AM Yesterday to 7AM Today Intake and Output (Last 24 hours) Intake Oral Intake 910.00 Output Urine Voided 1000.00 Stool Count 0.00 Urine Count 2.00 Emesis Count 1.00 Total Summary Total Intake 910.00 Total Output 1000.00 Fluid Balance -90.00 Physical Exam General: A+Ox3 CV: RRR, no MRG Resp: CTAB Abd: Soft, ND, mild tenderness diffusely, rebound or guarding, positive bowel sounds. Incisions clean, intact with slight oozing from the umbilicus. Weight Dosing Weight: 113.6 kg (08/17/22) Dosing Weight: 113.6 kg (08/16/22) Medications Medications (13) Active Scheduled: (5) amiodarone 200 mg tablet 200 mg 1 tab(s), Oral, qDay atorvastatin 40 mg tablet 40 mg 1 tab(s), Oral, qDay carvedilol 25 mg tablet 25 mg 1 tab(s), Oral, BID ceFAZolin syringe 2 gram(s) 20 mL, IV Push (INT), q8h rivaroxaban 20 mg tablet 20 mg 1 tab(s), Oral, qHS Continuous: (0) PRN: (8) benzocaine-dextromethorphan 7.5 mg-5 mg Kay 1 lozenge(s), Oral, q2h dextrose 50% Solution Disp syringe 50 mL 12.5 gram(s) 25 mL, IV Push, AsDirected morphine 2 mg/mL 1 mL syringe 2 mg 1 mL, IV Push, q3h morphine 4 mg/mL 1mL INJ 5 mg 1.25 mL, IV Push, q3h ondansetron 2 mg/ 1 mL 2 mL INJ 4 mg 2 mL, IV Push, q4h oxycodone 5 mg tablet (immediate release) 5 mg 1 tab(s), Oral, q4h prochlorperazine 10 mg/2 mL vial 5 mg 1 mL, IV Push, q6h tramadol 50 mg Tablet 50 mg 1 tab(s), Oral, q4h Lab Results 08/22 04:10 WBC: 6.9 Hgb: 9.6 L Hct: 28.9 L Platelet: 230 Neutrophil %: 71.0 Glucose Level: 112 Sodium Level: 138 Potassium Level: 4.0 BUN: 31.0 H Creatinine Lvl (s): 1.18 08/21 03:54 WBC: 5.5 Hgb: 8.7 L Hct: 26.3 L Platelet: 188 Neutrophil %: 66.5 Glucose Level: 106 Sodium Level: 137 Potassium Level: 3.8 BUN: 38.0 H Creatinine Lvl (s): 1.36 EKG No qualifying data available. Assessment/Plan Abdominal pain Acute post-operative pain Hernia Patient is a 72-year-old male postoperative day #6 status post exploratory laparotomy, repair of incarcerated umbilical hernia with small bowel resection, Wide bowel regimen today. Encourage activity and ambulation. Continue regular diet for now. Once ileus improves, likely discharge soon. Digitally Signed by JERROD LEIGH MD on 08/22/2022 09:15 AM [facility] [id number] Note Date of Service 08/21/22 Chief Complaint sbo Subjective 72-year-old male with a past medical history of CAD status post CABG in the past on aspirin and statin, CKD, A-fib on Coreg, Xarelto, and amiodarone, type 2 diabetes, hypertension, and hyperlipidemia, who initially presented to [facility] emergency department on 08/14/2022 with complaints of abdominal pain that began that afternoon. CT abdomen/pelvis there demonstrated a periumbilical hernia containing a loop of small bowel and some fluid suggesting possible inflammation. No proximal small bowel dilatation was seen however early obstruction could not be excluded at that time. Patient was discharged home as he did feel better, presented [facility] 08/16/[address] on 08/16/2022 demonstrated small bowel obstruction with transition point at the umbilical hernia, this contained a short loop of small bowel. Mild reactive subcutaneous infiltrative changes around the umbilical hernia were seen. General surgery admitted the patient and patient was taken tothe OR on 08/16/2022 for an attempted laparoscopic assisted robotic umbilical hernia converted to open small bowel resection with anastomosis and closure of hernia. NG tube was placed, which has now been discontinued. Hospital stay complicated by TRISTIAN, felt to be secondary to contrast-induced nephropathy. Hospitalist team was consulted for medical management of chronic conditions and TRISTIAN. Patient seen today sitting in the chair. He was eating breakfast. He states he tolerated jello, apple juice and some more liquids. He did not eat his cream of wheat or yogurt. No complaints of chest pain or shortness of breath. He denied abdominal pain, he states he feels better. He denies passing gas or having a bowel movement. No nausea or vomiting. Objective Vitals and Measurements T: 37.1 C (Oral) TMIN: 36.7 C (Oral) TMAX: 37.7 C (Oral) HR: 74 RR: 16 BP: 105/69 SpO2: 95% Intake and Output 7AM Yesterday to 7AM Today Intake and Output (Last 24 hours) Intake Administration Information 600.00 Oral Intake 210.00 Output Urine Voided 500.00 Stool Count 0.00 Urine Count 3.00 Total Summary Total Intake 810.00 Total Output 500.00 Fluid Balance 310.00 Physical Exam General: No acute distress. Alert and Appropriate Skin: No rash. Warm, Dry HEENT: Head is normocephalic and atraumatic. No lesions. Pupils equal in size. Extraocular movements within normal limits. Nose: No septal deviation. Mouth: Oropharynx mucosa is without lesion. Neck: Supple. No lymphadenopathy, thyromegaly noted. Lungs: Bilaterally clear/diminished breath sounds with no crepitation or wheeze. Unlabored on room air Cardiovascular: Heart is regular rhythm, S1S2, No extra-audible heart tones Abdomen: Abdomen is soft, tender, midline incision intact. Bowel sounds positive all four quadrants. Extremities: No clubbing, cyanosis or edema. Peripheral and distal pulses palpable. No calf tenderness. Adequate peripheral circulation. Neurological: The patient is awake, oriented to time, people and place. Following simple commands, moving all extremities. Generalized weakness. Weight Dosing Weight: 113.6 kg (08/17/22) Dosing Weight: 113.6 kg (08/16/22) Medications Medications (14) Active Scheduled: (5) amiodarone 200 mg tablet 200 mg 1 tab(s), Oral, qDay atorvastatin 40 mg tablet 40 mg 1 tab(s), Oral, qDay carvedilol 25 mg tablet 25 mg 1 tab(s), Oral, BID ceFAZolin syringe 2 gram(s) 20 mL, IV Push (INT), q8h heparin 5,000 units/mL (1 mL) vial 5,000 unit(s) 1 mL, Subcutaneous, q8h Continuous: (1) Lactated Ringers 1,000 mL 1,000 mL, Intravenous, 75 mL/hr PRN: (8) benzocaine-dextromethorphan 7.5 mg-5 mg Kay 1 lozenge(s), Oral, q2h dextrose 50% Solution Disp syringe 50 mL 12.5 gram(s) 25 mL, IV Push, AsDirected morphine 2 mg/mL 1 mL syringe 2 mg 1 mL, IV Push, q3h morphine 4 mg/mL 1mL INJ 5 mg 1.25 mL, IV Push, q3h ondansetron 2 mg/ 1 mL 2 mL INJ 4 mg 2 mL, IV Push, q4h oxycodone 5 mg tablet (immediate release) 5 mg 1 tab(s), Oral, q4h prochlorperazine 10 mg/2 mL vial 5 mg 1 mL, IV Push, q6h tramadol 50 mg Tablet 50 mg 1 tab(s), Oral, q4h Lab Results 08/21 03:54 WBC: 5.5 Hgb: 8.7 L Hct: 26.3 L Platelet: 188 Neutrophil %: 66.5 Glucose Level: 106 Sodium Level: 137 Potassium Level: 3.8 BUN: 38.0 H Creatinine Lvl (s): 1.36 08/20 05:13 WBC: 4.2 L Hgb: 9.0 L Hct: 27.2 L Platelet: 172 Neutrophil %: 66.2 Glucose Level: 140 H Sodium Level: 138 Potassium Level: 4.2 BUN: 51.0 H Creatinine Lvl (s): 1.60 H EKG No qualifying data available. Assessment/Plan 1. Incarcerated hernia 2. Small bowel obstruction 3. Anemia 4. TRISTIAN on CKD 5. History of A-fib 6. History of CAD status post CABG 7. Type 2 diabetes 8. Heart failure with an EF of 45 to 50% 9. Hypertension 10. Hyperlipidemia Presented with complaints of abdominal pain and found to have incarcerated hernia with small bowel obstruction. Patient is status post open small bowel resection with anastomosis and closure of hernia. NG tube was discontinued, diet was advanced to full liquids. Antibiotics per primary team, on Ancef. PT recommending SNF at discharge, planning for [facility]. Anemia, hgb stable at 8.7. No signs of active bleed. TRISTIAN on CKD, resolved with IV fluids. Cr 1.36. Contrast-induced nephropathy complicating factor. Bumex being held- to continue at discharge. Can discontinue IV fluids as diet is being increased. History of CAD status post CABG, continue atorvastatin. History of A-fib, continue amiodarone, Coreg. Xarelto on hold given above- to resume when ok with primary team. Type 2 diabetes, BS stable. Most recent A1c 5.9. To resume Farxiga at discharge. Heart failure with an EF of 45 to 50% from echocardiogram of November 2020. Euvolemic on exam. Appears to be maintained on Bumex at home, to resume at discharge. Hypertension, continue Coreg. Hyperlipidemia, continue statin. On subcu heparin for DVT prophylaxis while Xarelto on hold. Plan discussed with patient at bedside. Patient's chronic conditions are stable, TRISTIAN resolved. Hospitalist will sign off, please call with questions. Case discussed with Dr. Jung. This dictation was performed using voice recognition software and may include grammatical and/or spelling errors. Digitally Signed by ALDA DANIEL on 08/21/2022 09:55 AM [facility] [id number] Note Date of Service 08/20/22 Chief Complaint generalized pain Subjective 72-year-old male with a past medical history of CAD status post CABG in the past on aspirin and statin, CKD, A-fib on Coreg, Xarelto, and amiodarone, type 2 diabetes, hypertension, and hyperlipidemia, who initially presented to [facility] emergency department on 08/14/2022 with complaints of abdominal pain that began that afternoon. CT abdomen/pelvis there demonstrated a periumbilical hernia containing a loop of small bowel and some fluid suggesting possible inflammation. No proximal small bowel dilatation was seen however early obstruction could not be excluded at that time. Patient was discharged home as he did feel better, presented back to [facility] on 08/16/[address] on 08/16/2022 demonstrated small bowel obstruction with transition point at the umbilical hernia, this contained a short loop of small bowel. Mild reactive subcutaneous infiltrative changes around the umbilical hernia were seen. General surgery admitted the patient and patient was taken tot OR on 08/16/2022 for an attempted laparoscopic assisted robotic umbilical hernia converted to open small bowel resection with anastomosis and closure of hernia. NG tube was placed, which has now been discontinued. Hospital stay complicated by TRISTIAN, felt to be secondary to contrast-induced nephropathy. Hospitalist team was consulted for medical management of chronic conditions. Patient seen today sitting in the chair. He denied complaints of chest pain or shortness of breath.Patient complained of generalized pain. He states his abdomen hurts when he laughs. Patient states he is passing a lot of gas however no bowel movement today. Patient states he is tolerating a liquiddiet. Objective Vitals and Measurements T: 36.7 C (Oral) TMIN: 36.7 C (Oral) TMAX: 37.0 C (Oral) HR: 78(Apical) RR: 16 BP: 104/71 SpO2: 95% Intake and Output 7AM Yesterday to 7AM Today Intake and Output (Last 24 hours) Intake Oral Intake 1360.00 Administration Information 600.00 Output Urine Voided 900.00 Gastric Tube Output: 245.00 Urine Count 3.00 Total Summary Total Intake 1960.00 Total Output 1145.00 Fluid Balance 815.00 Physical Exam Physical Exam General: No acute distress. Alert and Appropriate Skin: No rash. Warm, Dry HEENT: Head is normocephalic and atraumatic. No lesions. Pupils equal in size. Extraocular movements within normal limits. Nose: No septal deviation. Mouth: Oropharynx mucosa is without lesion. Neck: Supple. No lymphadenopathy, thyromegaly noted. Lungs: Bilaterally clear/diminished breath sounds with no crepitation or wheeze. Unlabored on room air Cardiovascular: Heart is regular rhythm, S1S2, No extra-audible heart tones Abdomen: Abdomen is soft, tender, midline incision intact. Bowel sounds positive all four quadrants. Extremities: No clubbing, cyanosis or edema. Peripheral and distal pulses palpable. No calf tenderness. Adequate peripheral circulation. Neurological: The patient is awake, oriented to time, people and place. Following simple commands, moving all extremities. Generalized weakness. Weight Dosing Weight: 113.6 kg (08/17/22) Dosing Weight: 113.6 kg (08/16/22) Medications Medications (15) Active Scheduled: (6) amiodarone 200 mg tablet 200 mg 1 tab(s), Oral, qDay atorvastatin 40 mg tablet 40 mg 1 tab(s), Oral, qDay carvedilol 25 mg tablet 25 mg 1 tab(s), Oral, BID ceFAZolin syringe 2 gram(s) 20 mL, IV Push (INT), q8h heparin 5,000 units/mL (1 mL) vial 5,000 unit(s) 1 mL, Subcutaneous, q8h metronidazole PMX 500 mg 100 mL, IV Piggyback, q8h Continuous: (1) Lactated Ringers 1,000 mL 1,000 mL, Intravenous, 75 mL/hr PRN: (8) benzocaine-dextromethorphan 7.5 mg-5 mg Kay 1 lozenge(s), Oral, q2h dextrose 50% Solution Disp syringe 50 mL 12.5 gram(s) 25 mL, IV Push, AsDirected morphine 2 mg/mL 1 mL syringe 2 mg 1 mL, IV Push, q3h morphine 4 mg/mL 1mL INJ 5 mg 1.25 mL, IV Push, q3h ondansetron 2 mg/ 1 mL 2 mL INJ 4 mg 2 mL, IV Push, q4h oxycodone 5 mg tablet (immediate release) 5 mg 1 tab(s), Oral, q4h prochlorperazine 10 mg/2 mL vial 5 mg 1 mL, IV Push, q6h tramadol 50 mg Tablet 50 mg 1 tab(s), Oral, q4h Lab Results 08/20 05:13 WBC: 4.2 L Hgb: 9.0 L Hct: 27.2 L Platelet: 172 Neutrophil %: 66.2 Glucose Level: 140 H Sodium Level: 138 Potassium Level: 4.2 BUN: 51.0 H Creatinine Lvl (s): 1.60 H 08/19 05:08 WBC: 3.2 L Hgb: 8.9 L Hct: 26.7 L Platelet: 143 L Neutrophil %: 62.5 Glucose Level: 129 H Sodium Level: 140 Potassium Level: 4.5 BUN: 56.0 H Creatinine Lvl (s): 1.97 H EKG No qualifying data available. Assessment/Plan 1. Incarcerated hernia 2. Small bowel obstruction 3. Anemia 4. TRISTIAN on CKD 5. History of A-fib 6. History of CAD status post CABG 7. Type 2 diabetes 8. Heart failure with an EF of 45 to 50% 9. Hypertension 10. Hyperlipidemia Presented with complaints of abdominal pain and found to have incarcerated hernia with small bowel obstruction. Patient is status post open small bowel resection with anastomosis and closure of hernia. NG tube was discontinued, diet was advanced to full liquids. Rocephin was transitioned to Ancef. Remains on Flagyl. PT recommending SNF at discharge, planning for [facility]. Continue management per primary team. Anemia, hgb stable at 9.0. No signs of active bleed. TRISTIAN on CKD, creatinine improved to 1.60 with IV fluids. Baseline creatinine appears to be around 1.3-1.4. Contrast-induced nephropathy complicating factor. Bumex being held. Will continue IV fluids until patient tolerating adequate diet. History of CAD status post CABG, continue atorvastatin. History of A-fib, continue amiodarone, Coreg. Xarelto on hold given above- to resume when ok with primary team. Type 2 diabetes, BS stable. Most recent A1c 5.9. To resume Farxiga at discharge. Heart failure with an EF of 45 to 50% from echocardiogram of November 2020. Euvolemic on exam. Appears to be maintained on Bumex at home, hold for now given elevated creatinine. Hypertension, continue Coreg. Hyperlipidemia, continue statin. On subcu heparin for DVT prophylaxis while Xarelto on hold. Plan discussed with patient at bedside. Hospitalist to continue following. Case discussed with Dr. Jung. This dictation was performed using voice recognition software and may include grammatical and/or spelling errors. Digitally Signed by ALDA DANIEL on 08/20/2022 12:33 PM Digitally Signed by ALDA DANIEL on 08/20/2022 12:33 PM [facility] [id number] Note Date of Service 08/20/22 Chief Complaint generalized pain Subjective 72-year-old male with a past medical history of CAD status post CABG in the past on aspirin and statin, CKD, A-fib on Coreg, Xarelto, and amiodarone, type 2 diabetes, hypertension, and hyperlipidemia, who initially presented to [facility] emergency department on 08/14/2022 with complaints of abdominal pain that began that afternoon. CT abdomen/pelvis there demonstrated a periumbilical hernia containing a loop of small bowel and some fluid suggesting possible inflammation. No proximal small bowel dilatation was seen however early obstruction could not be excluded at that time. Patient was discharged home as he did feel better, presented back to [facility] on 08/16/[address] on 08/16/2022 demonstrated small bowel obstruction with transition point at the umbilical hernia, this contained a short loop of small bowel. Mild reactive subcutaneous infiltrative changes around the umbilical hernia were seen. General surgery admitted the patient and patient was taken tothe OR on 08/16/2022 for an attempted laparoscopic assisted robotic umbilical hernia converted to open small bowel resection with anastomosis and closure of hernia. NG tube was placed, which has now been discontinued. Hospital stay complicated by TRISTIAN, felt to be secondary to contrast-induced nephropathy. Hospitalist team was consulted for medical management of chronic conditions. Patient seen today sitting in the chair. He denied complaints of chest pain or shortness of breath.Patient complained of generalized pain. He states his abdomen hurts when he laughs. Patient states he is passing a lot of gas however no bowel movement today. Patient states he is tolerating a liquiddiet. Objective Vitals and Measurements T: 36.7 C (Oral) TMIN: 36.7 C (Oral) TMAX: 37.0 C (Oral) HR: 78(Apical) RR: 16 BP: 104/71 SpO2: 95% Intake and Output 7AM Yesterday to 7AM Today Intake and Output (Last 24 hours) Intake Oral Intake 1360.00 Administration Information 600.00 Output Urine Voided 900.00 Gastric Tube Output: 245.00 Urine Count 3.00 Total Summary Total Intake 1960.00 Total Output 1145.00 Fluid Balance 815.00 Physical Exam Physical Exam General: No acute distress. Alert and Appropriate Skin: No rash. Warm, Dry HEENT: Head is normocephalic and atraumatic. No lesions. Pupils equal in size. Extraocular movements within normal limits. Nose: No septal deviation. Mouth: Oropharynx mucosa is without lesion. Neck: Supple. No lymphadenopathy, thyromegaly noted. Lungs: Bilaterally clear/diminished breath sounds with no crepitation or wheeze. Unlabored on room air Cardiovascular: Heart is regular rhythm, S1S2, No extra-audible heart tones Abdomen: Abdomen is soft, tender, midline incision intact. Bowel sounds positive all four quadrants. Extremities: No clubbing, cyanosis or edema. Peripheral and distal pulses palpable. No calf tenderness. Adequate peripheral circulation. Neurological: The patient is awake, oriented to time, people and place. Following simple commands, moving all extremities. Generalized weakness. Weight Dosing Weight: 113.6 kg (08/17/22) Dosing Weight: 113.6 kg (08/16/22) Medications Medications (15) Active Scheduled: (6) amiodarone 200 mg tablet 200 mg 1 tab(s), Oral, qDay atorvastatin 40 mg tablet 40 mg 1 tab(s), Oral, qDay carvedilol 25 mg tablet 25 mg 1 tab(s), Oral, BID ceFAZolin syringe 2 gram(s) 20 mL, IV Push (INT), q8h heparin 5,000 units/mL (1 mL) vial 5,000 unit(s) 1 mL, Subcutaneous, q8h metronidazole PMX 500 mg 100 mL, IV Piggyback, q8h Continuous: (1) Lactated Ringers 1,000 mL 1,000 mL, Intravenous, 75 mL/hr PRN: (8) benzocaine-dextromethorphan 7.5 mg-5 mg Kay 1 lozenge(s), Oral, q2h dextrose 50% Solution Disp syringe 50 mL 12.5 gram(s) 25 mL, IV Push, AsDirected morphine 2 mg/mL 1 mL syringe 2 mg 1 mL, IV Push, q3h morphine 4 mg/mL 1mL INJ 5 mg 1.25 mL, IV Push, q3h ondansetron 2 mg/ 1 mL 2 mL INJ 4 mg 2 mL, IV Push, q4h oxycodone 5 mg tablet (immediate release) 5 mg 1 tab(s), Oral, q4h prochlorperazine 10 mg/2 mL vial 5 mg 1 mL, IV Push, q6h tramadol 50 mg Tablet 50 mg 1 tab(s), Oral, q4h Lab Results 08/20 05:13 WBC: 4.2 L Hgb: 9.0 L Hct: 27.2 L Platelet: 172 Neutrophil %: 66.2 Glucose Level: 140 H Sodium Level: 138 Potassium Level: 4.2 BUN: 51.0 H Creatinine Lvl (s): 1.60 H 05/10 05:08 WBC: 3.2 L Hgb: 8.9 L Hct: 26.7 L Platelet: 143 L Neutrophil %: 62.5 Glucose Level: 129 H Sodium Level: 140 Potassium Level: 4.5 BUN: 56.0 H Creatinine Lvl (s): 1.97 H EKG No qualifying data available. Assessment/Plan 1. Incarcerated hernia 2. Small bowel obstruction 3. Anemia 4. TRISTIAN on CKD 5. History of A-fib 6. History of CAD status post CABG 7. Type 2 diabetes 8. Heart failure with an EF of 45 to 50% 9. Hypertension 10. Hyperlipidemia Presented with complaints of abdominal pain and found to have incarcerated hernia with small bowel obstruction. Patient is status post open small bowel resection with anastomosis and closure of hernia. NG tube was discontinued, diet was advanced to full liquids. Rocephin was transitioned to Ancef. Remains on Flagyl. PT recommending SNF at discharge, planning for [facility]. Continue management per primary team. Anemia, hgb stable at 9.0. No signs of active bleed. TRISTIAN on CKD, creatinine improved to 1.60 with IV fluids. Baseline creatinine appears to be around 1.3-1.4. Contrast-induced nephropathy complicating factor. Bumex being held. Will continue IV fluids until patient tolerating adequate diet. History of CAD status post CABG, continue atorvastatin. History of A-fib, continue amiodarone, Coreg. Xarelto on hold given above- to resume when ok with primary team. Type 2 diabetes, BS stable. Most recent A1c 5.9. To resume Farxiga at discharge. Heart failure with an EF of 45 to 50% from echocardiogram of November 2020. Euvolemic on exam. Appears to be maintained on Bumex at home, hold for now given elevated creatinine. Hypertension, continue Coreg. Hyperlipidemia, continue statin. On subcu heparin for DVT prophylaxis while Xarelto on hold. Plan discussed with patient at bedside. Hospitalist to continue following. Case discussed with Dr. Jung. This dictation was performed using voice recognition software and may include grammatical and/or spelling errors. Digitally Signed by ALDA DANIEL on 08/20/2022 12:33 PM Digitally Signed by ALDA DANIEL on 08/20/2022 12:33 PM [id number] Note ORIGINAL EXAMINATION: ONE SUPINE XRAY VIEW(S) OF THE ABDOMEN08/19/2022 7:57 pm ABDOMEN 1 VIEW/KUB EXAM DESCRIPTION: COMPARISON: CT abdomen pelvis August 16, 2022 HISTORY: ORDERING SYSTEM PROVIDED HISTORY: Reason for Exam: ngt FINDINGS: 2 supine views of the abdomen and pelvis were obtained. Bowel gas pattern is nonobstructed without dilatation, air-fluid level, or free air. Orogastric tube in dense side hole terminate in the stomach. No pathologic calcifications are seen. The osseous structures are unremarkable. IMPRESSION: Nonspecific nonobstructed bowel gas pattern. Successful placement orogastric tube. RECOMMENDATIONS: Unavailable Interpreted by: Pita Astorga MD Preliminary Report By: Pita Astorga MD Electronically signed By Pita Astorga MD Dictated Date: 08/19/2022 10:05:07 PM Prelim Date: 08/19/2022 10:05:47 PM Sign Date: 08/19/2022 10:05:47 PM Ordering Provider: [facility]05-10-2023 Note ORIGINAL EXAMINATION: ONE SUPINE XRAY VIEW(S) OF THE ABDOMEN08/19/2022 7:57 pm ABDOMEN 1 VIEW/KUB EXAM DESCRIPTION: COMPARISON: CT abdomen pelvis August 16, 2022 HISTORY: ORDERING SYSTEM PROVIDED HISTORY: Reason for Exam: ngt FINDINGS: 2 supine views of the abdomen and pelvis were obtained. Bowel gas pattern is nonobstructed without dilatation, air-fluid level, or free air. Orogastric tube in dense side hole terminate in the stomach. No pathologic calcifications are seen. The osseous structures are unremarkable. IMPRESSION: Nonspecific nonobstructed bowel gas pattern. Successful placement orogastric tube. RECOMMENDATIONS: Unavailable Interpreted by: Pita Astorga MD Preliminary Report By: Pita Astorga MD Electronically signed By Pita Astorga MD Dictated Date: 08/19/2022 10:05:07 PM Prelim Date: 08/19/2022 10:05:47 PM Sign Date: 08/19/2022 10:05:47 PM Ordering Provider: [facility]05-10-2023 Note The microscopic examination is performed, except in the case of Gross Only. [facility] 05-10-2023 Note The microscopic examination is performed, except in the case of Gross Only. [facility] 05-10-2023 Note Date of Service 08/19/2022 Chief Complaint abd pain Subjective This is a 72-year-old male with a past medical history of CAD status post CABG in the past on aspirin and statin, CKD, A-fib on Coreg, Xarelto, and amiodarone, type 2 diabetes, hypertension, and hyperlipidemia. He initially presented to [facility] emergency department on 08/14/2022 with complaints of abdominal pain that began that afternoon. CT abdomen/pelvis there demonstrated a periumbilical hernia containing a loop of small bowel and some fluid suggesting possible inflammation. No proximal small bowel dilatation was seen however early obstruction could not be excluded at that time. Patient was discharged home as he did feel better, presented [facility] on 08/16/[address] on 08/16/2022 demonstrated small bowel obstruction with transition point at the umbilical hernia, this contained a short loop of small bowel. Mild reactive subcutaneous infiltrativechanges around the umbilical hernia were seen. General surgery was consulted and patient was taken to the OR on 08/16/2022 for an attempted laparoscopic assisted robotic umbilical hernia converted to open small bowel resection with anastomosis and closure of hernia. NG tube was placed. Hospital stay complicated by high, felt to be secondary to contrast-induced nephropathy. Hospitalist team was consulted for medical management of chronic conditions. Exam, patient is tolerating room air. Endorses mild abdominal discomfort. Denies chest pain, shortness of breath. Denies nausea, vomiting, diarrhea. Objective Vitals and Measurements T: 36.7 C (Oral) TMIN: 36.4 C (Oral) TMAX: 38.2 C (Axillary) HR: 75(Apical) RR: 16 BP: 116/67 SpO2:96% Intake and Output 7AM Yesterday to 7AM Today Intake and Output (Last 24 hours) Intake Oral Intake 100.00 Administration Information 600.00 Output Urine Voided 350.00 Urinary Catheter Output: 200.00 Gastric Tube Output: 1350.00 Stool Count 0.00 Total Summary Total Intake 700.00 Total Output 1900.00 Fluid Balance -1200.00 Physical Exam Physical Exam General: No acute distress. Alert, appropriate and awake, oriented to time, people and place Skin: No rash. Warm, Dry, Intact HEENT: Head is normocephalic and atraumatic. No lesions. Pupils equal in size. Extraocular movements within normal limits. Nose: No septal deviation. Mouth: Oropharynx mucosa is without lesion. Neck: Supple. No lymphadenopathy, thyromegaly noted. Lungs: Bilaterally clear/diminished breath sounds with no crepitation or wheeze. Unlabored Cardiovascular: Heart is regular rhythm, S1S2, No extra-audible heart tones Abdomen: Surgical incision clean, dry, intact. Bowel sounds hypoactive. Extremities: No clubbing, cyanosis or edema. Peripheral pulses palpable. No calf tenderness. Adequate peripheral circulation. Neurological: Following simple commands, moving all extremities. Weight Dosing Weight: 113.6 kg (08/17/22) Dosing Weight: 113.6 kg (08/16/22) Medications Medications (12) Active Scheduled: (5) atorvastatin 40 mg tablet 40 mg 1 tab(s), Oral, qDay carvedilol 25 mg tablet 25 mg 1 tab(s), Oral, BID cefTRIAXone IVP syringe 2 gram(s) 20 mL, IV Push (INT), q24h heparin 5,000 units/mL (1 mL) vial 5,000 unit(s) 1 mL, Subcutaneous, q8h metronidazole PMX 500 mg 100 mL, IV Piggyback, q8h Continuous: (1) Lactated Ringers 1,000 mL 1,000 mL, Intravenous, 75 mL/hr PRN: (6) benzocaine-dextromethorphan 7.5 mg-5 mg Kay 1 lozenge(s), Oral, q2h dextrose 50% Solution Disp syringe 50 mL 12.5 gram(s) 25 mL, IV Push, AsDirected morphine 2 mg/mL 1 mL syringe 2 mg 1 mL, IV Push, q3h morphine 4 mg/mL 1mL INJ 5 mg 1.25 mL, IV Push, q3h ondansetron 2 mg/ 1 mL 2 mL INJ 4 mg 2 mL, IV Push, q4h prochlorperazine 10 mg/2 mL vial 5 mg 1 mL, IV Push, q6h Lab Results 08/19 05:08 WBC: 3.2 L Hgb: 8.9 L Hct: 26.7 L Platelet: 143 L Neutrophil %: 62.5 Glucose Level: 129 H Sodium Level: 140 Potassium Level: 4.5 BUN: 56.0 H Creatinine Lvl (s): 1.97 H 08/18 08:17 Protime: 16.4 H PT International Ratio: 1.4 08/18 05:18 WBC: 4.1 L Hgb: 9.8 L Hct: 29.4 L Platelet: 232 Glucose Level: 137 H Sodium Level: 137 Potassium Level: 4.7 BUN: 42.0 H Creatinine Lvl (s): 1.95 H EKG EKG - Completed -- 08/17/22 2:00:00 EDT Assessment/Plan 1. Incarcerated hernia 2. Small bowel obstruction 3. History of CAD status post CABG 4. History of A-fib 5. CKD 6. Type 2 diabetes 7. Heart failure with an EF of 45 to 50% 8. Hypertension 9. Hyperlipidemia 10. Anemia Presented with complaints of abdominal pain and found to have incarcerated hernia with small bowel obstruction. Patient is status post open small bowel resection with anastomosis and closure of hernia. Management per primary team. History of CAD status post CABG in the past, continue atorvastatin. Continue to hold aspirin, restart when okay with primary team. History of A-fib on amiodarone, Coreg, Xarelto at home. We will continue amiodarone. Continue to hold Xarelto, restart when okay with primary team. CKD, creatinine 1.97 today, baseline around 1.5. Continue IV fluids. Did receive IV contrast on 08/14/2022 and 08/16/2022, possibly contrast-induced nephropathy. Hold Bumex. Type 2 diabetes, hemoglobin A1c 5.9. Stable. Hemoglobin A1c in 24 hours was 6.9. Restart Jardiance at discharge. Heart failure with an EF of 45 to 50% from echocardiogram of November 2020. Euvolemic on exam. Appears to be maintained on Bumex at home, hold for now given elevated creatinine. Hypertension, continue Coreg. Hyperlipidemia, continue statin. Anemia, hemoglobin 8.9, no signs of active bleeding.. Surgery. CBC in the morning. Hospitalist team will follow for medical management of chronic conditions. Discussed with patient at the bedside, discussed with Dr. Jung. Time Spent 35 minutes spent with greater than 50% of that time spent on patient care and care coordination. Digitally Signed by CATRINA MADERA on 08/19/2022 12:06 PM [facility] [id number] Note Date of Service 08/19/2022 Chief Complaint abd pain Subjective This is a 72-year-old male with a past medical history of CAD status post CABG in the past on aspirin and statin, CKD, A-fib on Coreg, Xarelto, and amiodarone, type 2 diabetes, hypertension, and hyperlipidemia. He initially presented to [facility] emergency department on 08/14/2022 with complaints of abdominal pain that began that afternoon. CT abdomen/pelvis there demonstrated a periumbilical hernia containing a loop of small bowel and some fluid suggesting possible inflammation. No proximal small bowel dilatation was seen however early obstruction could not be excluded at that time. Patient was discharged home as he did feel better, presented [facility] to [facility] on 08/16/[address] on 08/16/2022 demonstrated small bowel obstruction with transition point at the umbilical hernia, this contained a short loop of small bowel. Mild reactive subcutaneous infiltrativechanges around the umbilical hernia were seen. General surgery was consulted and patient was taken to the OR on 08/16/2022 for an attempted laparoscopic assisted robotic umbilical hernia converted to open small bowel resection with anastomosis and closure of hernia. NG tube was placed. Hospital stay complicated by high, felt to be secondary to contrast-induced nephropathy. Hospitalist team was consulted for medical management of chronic conditions. Exam, patient is tolerating room air. Endorses mild abdominal discomfort. Denies chest pain, shortness of breath. Denies nausea, vomiting, diarrhea. Objective Vitals and Measurements T: 36.7 C (Oral) TMIN: 36.4 C (Oral) TMAX: 38.2 C (Axillary) HR: 75(Apical) RR: 16 BP: 116/67 SpO2:96% Intake and Output 7AM Yesterday to 7AM Today Intake and Output (Last 24 hours) Intake Oral Intake 100.00 Administration Information 600.00 Output Urine Voided 350.00 Urinary Catheter Output: 200.00 Gastric Tube Output: 1350.00 Stool Count 0.00 Total Summary Total Intake 700.00 Total Output 1900.00 Fluid Balance -1200.00 Physical Exam Physical Exam General: No acute distress. Alert, appropriate and awake, oriented to time, people and place Skin: No rash. Warm, Dry, Intact HEENT: Head is normocephalic and atraumatic. No lesions. Pupils equal in size. Extraocular movements within normal limits. Nose: No septal deviation. Mouth: Oropharynx mucosa is without lesion. Neck: Supple. No lymphadenopathy, thyromegaly noted. Lungs: Bilaterally clear/diminished breath sounds with no crepitation or wheeze. Unlabored Cardiovascular: Heart is regular rhythm, S1S2, No extra-audible heart tones Abdomen: Surgical incision clean, dry, intact. Bowel sounds hypoactive. Extremities: No clubbing, cyanosis or edema. Peripheral pulses palpable. No calf tenderness. Adequate peripheral circulation. Neurological: Following simple commands, moving all extremities. Weight Dosing Weight: 113.6 kg (08/17/22) Dosing Weight: 113.6 kg (08/16/22) Medications Medications (12) Active Scheduled: (5) atorvastatin 40 mg tablet 40 mg 1 tab(s), Oral, qDay carvedilol 25 mg tablet 25 mg 1 tab(s), Oral, BID cefTRIAXone IVP syringe 2 gram(s) 20 mL, IV Push (INT), q24h heparin 5,000 units/mL (1 mL) vial 5,000 unit(s) 1 mL, Subcutaneous, q8h metronidazole PMX 500 mg 100 mL, IV Piggyback, q8h Continuous: (1) Lactated Ringers 1,000 mL 1,000 mL, Intravenous, 75 mL/hr PRN: (6) benzocaine-dextromethorphan 7.5 mg-5 mg Kay 1 lozenge(s), Oral, q2h dextrose 50% Solution Disp syringe 50 mL 12.5 gram(s) 25 mL, IV Push, AsDirected morphine 2 mg/mL 1 mL syringe 2 mg 1 mL, IV Push, q3h morphine 4 mg/mL 1mL INJ 5 mg 1.25 mL, IV Push, q3h ondansetron 2 mg/ 1 mL 2 mL INJ 4 mg 2 mL, IV Push, q4h prochlorperazine 10 mg/2 mL vial 5 mg 1 mL, IV Push, q6h Lab Results 08/19 05:08 WBC: 3.2 L Hgb: 8.9 L Hct: 26.7 L Platelet: 143 L Neutrophil %: 62.5 Glucose Level: 129 H Sodium Level: 140 Potassium Level: 4.5 BUN: 56.0 H Creatinine Lvl (s): 1.97 H 08/18 08:17 Protime: 16.4 H PT International Ratio: 1.4 08/18 05:18 WBC: 4.1 L Hgb: 9.8 L Hct: 29.4 L Platelet: 232 Glucose Level: 137 H Sodium Level: 137 Potassium Level: 4.7 BUN: 42.0 H Creatinine Lvl (s): 1.95 H EKG EKG - Completed -- 08/17/22 2:00:00 EDT Assessment/Plan 1. Incarcerated hernia 2. Small bowel obstruction 3. History of CAD status post CABG 4. History of A-fib 5. CKD 6. Type 2 diabetes 7. Heart failure with an EF of 45 to 50% 8. Hypertension 9. Hyperlipidemia 10. Anemia Presented with complaints of abdominal pain and found to have incarcerated hernia with small bowel obstruction. Patient is status post open small bowel resection with anastomosis and closure of hernia. Management per primary team. History of CAD status post CABG in the past, continue atorvastatin. Continue to hold aspirin, restart when okay with primary team. History of A-fib on amiodarone, Coreg, Xarelto at home. We will continue amiodarone. Continue to hold Xarelto, restart when okay with primary team. CKD, creatinine 1.97 today, baseline around 1.5. Continue IV fluids. Did receive IV contrast on 08/14/2022 and 08/16/2022, possibly contrast-induced nephropathy. Hold Bumex. Type 2 diabetes, hemoglobin A1c 5.9. Stable. Hemoglobin A1c in 24 hours was 6.9. Restart Jardiance at discharge. Heart failure with an EF of 45 to 50% from echocardiogram of November 2020. Euvolemic on exam. Appears to be maintained on Bumex at home, hold for now given elevated creatinine. Hypertension, continue Coreg. Hyperlipidemia, continue statin. Anemia, hemoglobin 8.9, no signs of active bleeding.. Surgery. CBC in the morning. Hospitalist team will follow for medical management of chronic conditions. Discussed with patient at the bedside, discussed with Dr. Plunk. Time Spent 35 minutes spent with greater than 50% of that time spent on patient care and care coordination. Digitally Signed by CATRINA MADERA on 08/19/2022 12:06 PM [facility] [id number] Note The microscopic examination is performed, except in the case of Gross Only. [facility] 05-09-2023 Note The microscopic examination is performed, except in the case of Gross Only. [facility] 05-09-2023 Note The microscopic examination is performed, except in the case of Gross Only. [facility] 05-09-2023 Note The microscopic examination is performed, except in the case of Gross Only. [facility] 05-09-2023 Note ORIGINAL EXAMINATION: 1 x-ray view of chest and 1 x-ray view of upper abdomen. COMPARISON: Abdomen x-ray on 08/17/2022. CT abdomen and pelvis on 08/16/2022. HISTORY: ORDERING SYSTEM PROVIDED HISTORY: Reason for Exam: tube displacement FINDINGS: Nasogastric tube tip and side port are both in the stomach in satisfactory position. Small bilateral pleural effusions are unchanged. There is no pneumothorax or pulmonary edema. The heart size is at the upper limits of normal. IMPRESSION: Nasogastric tube is in satisfactory position. Small bilateral pleural effusions are unchanged. Interpreted by: Chucky Sue MD Preliminary Report By: Chucky Sue MD Electronically signed By Chucky Sue MD Dictated Date: 08/18/2022 6:29:33 AM Prelim Date: 08/18/2022 6:31:36 AM Sign Date: 08/18/2022 6:31:36 AM Ordering Provider: [facility]05-09-2023 Note ORIGINAL EXAMINATION: 1 x-ray view of chest and 1 x-ray view of upper abdomen. COMPARISON: Abdomen x-ray on 08/17/2022. CT abdomen and pelvis on 08/16/2022. HISTORY: ORDERING SYSTEM PROVIDED HISTORY: Reason for Exam: tube displacement FINDINGS: Nasogastric tube tip and side port are both in the stomach in satisfactory position. Small bilateral pleural effusions are unchanged. There is no pneumothorax or pulmonary edema. The heart size is at the upper limits of normal. IMPRESSION: Nasogastric tube is in satisfactory position. Small bilateral pleural effusions are unchanged. Interpreted by: Chucky Sue MD Preliminary Report By: Chucky Sue MD Electronically signed By Chucky Sue MD Dictated Date: 08/18/2022 6:29:33 AM Prelim Date: 08/18/2022 6:31:36 AM Sign Date: 08/18/2022 6:31:36 AM Ordering Provider: [facility]05-08-2023 Anesthesiology Consult note Patient: JACKY ELLIS Age: 72 years Sex: Male : 1950 Associated Diagnoses: None Author: GABRIELLA SCHMID MD Postoperative Information Post Operative Info: Post op day: Post Anesthesia Care Unit. Patient location: PACU. Assessment Postanesthesia assessment Vitals: Vital signs from flowsheet : Vital Signs 08/17/2022 3:01 EDT Temperature Oral 36.7 DegC Apical Heart Rate 74 bpm Respiratory Rate 16 br/min Systolic Blood Pressure Non-Invasive 149 mmHg HI Diastolic Blood Pressure Non-Invasive 89 mmHg 08/17/2022 1:01 EDT Temperature Oral 37.4 DegC HI Peripheral Pulse Rate 76 bpm Respiratory Rate 18 br/min Systolic Blood Pressure Non-Invasive 150 mmHg HI Diastolic Blood Pressure Non-Invasive 98 mmHg HI 08/17/2022 0:38 EDT Temperature Temporal Artery 36.2 DegC Heart Rate Monitored 77 bpm Respiratory Rate 16 br/min Systolic Blood Pressure Non-Invasive 158 mmHg HI Diastolic Blood Pressure Non-Invasive 94 mmHg HI Mean Arterial Pressure (NBP) 107 mmHg 08/17/2022 0:18 EDT Heart Rate Monitored 75 bpm Respiratory Rate 16 br/min Systolic Blood Pressure Non-Invasive 163 mmHg HI Diastolic Blood Pressure Non-Invasive 98 mmHg HI Mean Arterial Pressure (NBP) 113 mmHg 08/17/2022 0:04 EDT Heart Rate Monitored 75 bpm Respiratory Rate 16 br/min Systolic Blood Pressure Non-Invasive 177 mmHg HI Diastolic Blood Pressure Non-Invasive 111 mmHg >HHI 08/16/2022 23:48 EDT Heart Rate Monitored 73 bpm Respiratory Rate 16 br/min Systolic Blood Pressure Non-Invasive 163 mmHg HI Diastolic Blood Pressure Non-Invasive 98 mmHg HI Mean Arterial Pressure (NBP) 115 mmHg 08/16/2022 23:30 EDT Temperature Temporal Artery 36.0 DegC Heart Rate Monitored 69 bpm Respiratory Rate 16 br/min Systolic Blood Pressure Non-Invasive 157 mmHg HI Diastolic Blood Pressure Non-Invasive 99 mmHg HI Mean Arterial Pressure (NBP) 114 mmHg 08/16/2022 23:25 EDT Heart Rate Monitored 68 bpm bpm Respiratory Rate - Anes 0 br/min br/min 08/16/2022 23:24 EDT Systolic Blood Pressure Non-Invasive 162 mmHg mmHg Diastolic Blood Pressure Non-Invasive 115 mmHg mmHg 08/16/2022 23:21 EDT Systolic Blood Pressure Non-Invasive 184 mmHg mmHg Diastolic Blood Pressure Non-Invasive 120 mmHg mmHg 08/16/2022 23:20 EDT Heart Rate Monitored 69 bpm bpm Respiratory Rate - Anes 23 br/min br/min 08/16/2022 23:18 EDT Systolic Blood Pressure Non-Invasive 153 mmHg mmHg Diastolic Blood Pressure Non-Invasive 106 mmHg mmHg 08/16/2022 23:15 EDT Temperature (Route Not Specified) 37.36 DegC DegC Heart Rate Monitored 67 bpm bpm Respiratory Rate - Anes 12 br/min br/min 08/16/2022 23:14 EDT Systolic Blood Pressure Non-Invasive 153 mmHg mmHg Diastolic Blood Pressure Non-Invasive 103 mmHg mmHg 08/16/2022 23:11 EDT Systolic Blood Pressure Non-Invasive 148 mmHg mmHg Diastolic Blood Pressure Non-Invasive 100 mmHg mmHg 08/16/2022 23:10 EDT Temperature (Route Not Specified) 37.34 DegC DegC Heart Rate Monitored 65 bpm bpm Respiratory Rate - Anes 14 br/min br/min 08/16/2022 23:08 EDT Systolic Blood Pressure Non-Invasive 136 mmHg mmHg Diastolic Blood Pressure Non-Invasive 92 mmHg mmHg 08/16/2022 23:06 EDT Systolic Blood Pressure Non-Invasive 138 mmHg mmHg Diastolic Blood Pressure Non-Invasive 93 mmHg mmHg 08/16/2022 23:05 EDT Temperature (Route Not Specified) 37.33 DegC DegC Heart Rate Monitored 66 bpm bpm Respiratory Rate - Anes 14 br/min br/min 08/16/2022 23:03 EDT Systolic Blood Pressure Non-Invasive 144 mmHg mmHg Diastolic Blood Pressure Non-Invasive 99 mmHg mmHg 08/16/2022 23:00 EDT Temperature (Route Not Specified) 37.3 DegC DegC Heart Rate Monitored 66 bpm bpm Respiratory Rate - Anes 14 br/min br/min Systolic Blood Pressure Non-Invasive 146 mmHg mmHg Diastolic Blood Pressure Non-Invasive 98 mmHg mmHg 08/16/2022 22:57 EDT Systolic Blood Pressure Non-Invasive 147 mmHg mmHg Diastolic Blood Pressure Non-Invasive 101 mmHg mmHg 08/16/2022 22:55 EDT Temperature (Route Not Specified) 37.28 DegC DegC Heart Rate Monitored 70 bpm bpm Respiratory Rate - Anes 14 br/min br/min 08/16/2022 22:54 EDT Systolic Blood Pressure Non-Invasive 167 mmHg mmHg Diastolic Blood Pressure Non-Invasive 114 mmHg mmHg 08/16/2022 22:51 EDT Systolic Blood Pressure Non-Invasive 158 mmHg mmHg Diastolic Blood Pressure Non-Invasive 108 mmHg mmHg 08/16/2022 22:50 EDT Temperature (Route Not Specified) 37.27 DegC DegC Heart Rate Monitored 67 bpm bpm Respiratory Rate - Anes 14 br/min br/min 08/16/2022 22:48 EDT Systolic Blood Pressure Non-Invasive 163 mmHg mmHg Diastolic Blood Pressure Non-Invasive 106 mmHg mmHg 08/16/2022 22:45 EDT Temperature (Route Not Specified) 37.28 DegC DegC Heart Rate Monitored 67 bpm bpm Respiratory Rate - Anes 14 br/min br/min Systolic Blood Pressure Non-Invasive 160 mmHg mmHg Diastolic Blood Pressure Non-Invasive 110 mmHg mmHg 08/16/2022 22:41 EDT Systolic Blood Pressure Non-Invasive 117 mmHg mmHg Diastolic Blood Pressure Non-Invasive 77 mmHg mmHg 08/16/2022 22:40 EDT Temperature (Route Not Specified) 37.3 DegC DegC Heart Rate Monitored 64 bpm bpm Respiratory Rate - Anes 14 br/min br/min 08/16/2022 22:38 EDT Systolic Blood Pressure Non-Invasive 120 mmHg mmHg Diastolic Blood Pressure Non-Invasive 83 mmHg mmHg 08/16/2022 22:35 EDT Temperature (Route Not Specified) 37.31 DegC DegC Heart Rate Monitored 65 bpm bpm Respiratory Rate - Anes 14 br/min br/min Systolic Blood Pressure Non-Invasive 119 mmHg mmHg Diastolic Blood Pressure Non-Invasive 80 mmHg mmHg 08/16/2022 22:32 EDT Systolic Blood Pressure Non-Invasive 128 mmHg mmHg Diastolic Blood Pressure Non-Invasive 84 mmHg mmHg 08/16/2022 22:30 EDT Temperature (Route Not Specified) 37.32 DegC DegC Heart Rate Monitored 66 bpm bpm Respiratory Rate - Anes 14 br/min br/min Systolic Blood Pressure Non-Invasive 139 mmHg mmHg Diastolic Blood Pressure Non-Invasive 93 mmHg mmHg 08/16/2022 22:26 EDT Systolic Blood Pressure Non-Invasive 149 mmHg mmHg Diastolic Blood Pressure Non-Invasive 98 mmHg mmHg 08/16/2022 22:25 EDT Temperature (Route Not Specified) 37.33 DegC DegC Heart Rate Monitored 67 bpm bpm Respiratory Rate - Anes 13 br/min br/min 08/16/2022 22:24 EDT Systolic Blood Pressure Non-Invasive 157 mmHg mmHg Diastolic Blood Pressure Non-Invasive 105 mmHg mmHg 08/16/2022 22:20 EDT Temperature (Route Not Specified) 37.36 DegC DegC Heart Rate Monitored 64 bpm bpm Respiratory Rate - Anes 14 br/min br/min Systolic Blood Pressure Non-Invasive 145 mmHg mmHg Diastolic Blood Pressure Non-Invasive 92 mmHg mmHg 08/16/2022 22:17 EDT Systolic Blood Pressure Non-Invasive 128 mmHg mmHg Diastolic Blood Pressure Non-Invasive 93 mmHg mmHg 08/16/2022 22:15 EDT Temperature (Route Not Specified) 37.41 DegC DegC Heart Rate Monitored 63 bpm bpm Respiratory Rate - Anes 13 br/min br/min 08/16/2022 22:14 EDT Systolic Blood Pressure Non-Invasive 107 mmHg mmHg Diastolic Blood Pressure Non-Invasive 68 mmHg mmHg 08/16/2022 22:11 EDT Systolic Blood Pressure Non-Invasive 104 mmHg mmHg Diastolic Blood Pressure Non-Invasive 70 mmHg mmHg 08/16/2022 22:10 EDT Temperature (Route Not Specified) 37.47 DegC DegC Heart Rate Monitored 63 bpm bpm Respiratory Rate - Anes 14 br/min br/min 08/16/2022 22:08 EDT Systolic Blood Pressure Non-Invasive 105 mmHg mmHg Diastolic Blood Pressure Non-Invasive 67 mmHg mmHg 08/16/2022 22:05 EDT Temperature (Route Not Specified) 37.53 DegC DegC Heart Rate Monitored 63 bpm bpm Respiratory Rate - Anes 13 br/min br/min Systolic Blood Pressure Non-Invasive 107 mmHg mmHg Diastolic Blood Pressure Non-Invasive 70 mmHg mmHg 08/16/2022 22:02 EDT Systolic Blood Pressure Non-Invasive 102 mmHg mmHg Diastolic Blood Pressure Non-Invasive 74 mmHg mmHg 08/16/2022 22:00 EDT Temperature (Route Not Specified) 37.6 DegC DegC Heart Rate Monitored 63 bpm bpm Respiratory Rate - Anes 14 br/min br/min 08/16/2022 21:59 EDT Systolic Blood Pressure Non-Invasive 107 mmHg mmHg Diastolic Blood Pressure Non-Invasive 70 mmHg mmHg 08/16/2022 21:56 EDT Systolic Blood Pressure Non-Invasive 107 mmHg mmHg Diastolic Blood Pressure Non-Invasive 72 mmHg mmHg 08/16/2022 21:55 EDT Temperature (Route Not Specified) 37.65 DegC DegC Heart Rate Monitored 64 bpm bpm Respiratory Rate - Anes 16 br/min br/min 08/16/2022 21:53 EDT Systolic Blood Pressure Non-Invasive 109 mmHg mmHg Diastolic Blood Pressure Non-Invasive 74 mmHg mmHg 08/16/2022 21:50 EDT Temperature (Route Not Specified) 37.69 DegC DegC Heart Rate Monitored 66 bpm bpm Respiratory Rate - Anes 16 br/min br/min Systolic Blood Pressure Non-Invasive 114 mmHg mmHg Diastolic Blood Pressure Non-Invasive 80 mmHg mmHg 08/16/2022 21:47 EDT Systolic Blood Pressure Non-Invasive 126 mmHg mmHg Diastolic Blood Pressure Non-Invasive 85 mmHg mmHg 08/16/2022 21:45 EDT Temperature (Route Not Specified) 37.73 DegC DegC Heart Rate Monitored 70 bpm bpm Respiratory Rate - Anes 16 br/min br/min 08/16/2022 21:44 EDT Systolic Blood Pressure Non-Invasive 154 mmHg mmHg Diastolic Blood Pressure Non-Invasive 105 mmHg mmHg 08/16/2022 21:41 EDT Systolic Blood Pressure Non-Invasive 137 mmHg mmHg Diastolic Blood Pressure Non-Invasive 98 mmHg mmHg 08/16/2022 21:40 EDT Temperature (Route Not Specified) 37.74 DegC DegC Heart Rate Monitored 69 bpm bpm Respiratory Rate - Anes 16 br/min br/min 08/16/2022 21:38 EDT Systolic Blood Pressure Non-Invasive 142 mmHg mmHg Diastolic Blood Pressure Non-Invasive 99 mmHg mmHg 08/16/2022 21:35 EDT Temperature (Route Not Specified) 37.75 DegC DegC Heart Rate Monitored 67 bpm bpm Respiratory Rate - Anes 16 br/min br/min Systolic Blood Pressure Non-Invasive 123 mmHg mmHg Diastolic Blood Pressure Non-Invasive 86 mmHg mmHg 08/16/2022 21:32 EDT Systolic Blood Pressure Non-Invasive 131 mmHg mmHg Diastolic Blood Pressure Non-Invasive 90 mmHg mmHg 08/16/2022 21:30 EDT Temperature (Route Not Specified) 37.72 DegC DegC Heart Rate Monitored 68 bpm bpm Respiratory Rate - Anes 16 br/min br/min 08/16/2022 21:29 EDT Systolic Blood Pressure Non-Invasive 138 mmHg mmHg Diastolic Blood Pressure Non-Invasive 96 mmHg mmHg 08/16/2022 21:26 EDT Systolic Blood Pressure Non-Invasive 137 mmHg mmHg Diastolic Blood Pressure Non-Invasive 100 mmHg mmHg 08/16/2022 21:25 EDT Temperature (Route Not Specified) 37.69 DegC DegC Heart Rate Monitored 75 bpm bpm Respiratory Rate - Anes 16 br/min br/min 08/16/2022 21:23 EDT Systolic Blood Pressure Non-Invasive 151 mmHg mmHg Diastolic Blood Pressure Non-Invasive 109 mmHg mmHg 08/16/2022 21:20 EDT Temperature (Route Not Specified) 37.64 DegC DegC Heart Rate Monitored 76 bpm bpm Respiratory Rate - Anes 16 br/min br/min Systolic Blood Pressure Non-Invasive 164 mmHg mmHg Diastolic Blood Pressure Non-Invasive 120 mmHg mmHg 08/16/2022 21:17 EDT Systolic Blood Pressure Non-Invasive 171 mmHg mmHg Diastolic Blood Pressure Non-Invasive 125 mmHg mmHg 08/16/2022 21:15 EDT Temperature (Route Not Specified) 37.57 DegC DegC Heart Rate Monitored 77 bpm bpm Respiratory Rate - Anes 14 br/min br/min Systolic Blood Pressure Non-Invasive 183 mmHg mmHg Diastolic Blood Pressure Non-Invasive 128 mmHg mmHg 08/16/2022 21:13 EDT Systolic Blood Pressure Non-Invasive 184 mmHg mmHg Diastolic Blood Pressure Non-Invasive 134 mmHg mmHg 08/16/2022 21:12 EDT Systolic Blood Pressure Non-Invasive 187 mmHg mmHg Diastolic Blood Pressure Non-Invasive 134 mmHg mmHg 08/16/2022 21:10 EDT Temperature (Route Not Specified) 37.54 DegC DegC Heart Rate Monitored 73 bpm bpm Respiratory Rate - Anes 14 br/min br/min 08/16/2022 21:08 EDT Systolic Blood Pressure Non-Invasive 114 mmHg mmHg Diastolic Blood Pressure Non-Invasive 86 mmHg mmHg 08/16/2022 21:05 EDT Temperature (Route Not Specified) 37.56 DegC DegC Heart Rate Monitored 67 bpm bpm Respiratory Rate - Anes 14 br/min br/min Systolic Blood Pressure Non-Invasive 104 mmHg mmHg Diastolic Blood Pressure Non-Invasive 68 mmHg mmHg 08/16/2022 21:02 EDT Systolic Blood Pressure Non-Invasive 102 mmHg mmHg Diastolic Blood Pressure Non-Invasive 70 mmHg mmHg 08/16/2022 21:00 EDT Temperature (Route Not Specified) 37.63 DegC DegC Heart Rate Monitored 67 bpm bpm Respiratory Rate - Anes 12 br/min br/min 08/16/2022 20:59 EDT Systolic Blood Pressure Non-Invasive 101 mmHg mmHg Diastolic Blood Pressure Non-Invasive 66 mmHg mmHg 08/16/2022 20:56 EDT Systolic Blood Pressure Non-Invasive 102 mmHg mmHg Diastolic Blood Pressure Non-Invasive 68 mmHg mmHg 08/16/2022 20:55 EDT Temperature (Route Not Specified) 37.75 DegC DegC Heart Rate Monitored 68 bpm bpm Respiratory Rate - Anes 12 br/min br/min 08/16/2022 20:53 EDT Systolic Blood Pressure Non-Invasive 96 mmHg mmHg Diastolic Blood Pressure Non-Invasive 65 mmHg mmHg 08/16/2022 20:50 EDT Temperature (Route Not Specified) 37.92 DegC DegC Heart Rate Monitored 68 bpm bpm Respiratory Rate - Anes 12 br/min br/min Systolic Blood Pressure Non-Invasive 95 mmHg mmHg Diastolic Blood Pressure Non-Invasive 62 mmHg mmHg 08/16/2022 20:47 EDT Systolic Blood Pressure Non-Invasive 98 mmHg mmHg Diastolic Blood Pressure Non-Invasive 63 mmHg mmHg 08/16/2022 20:45 EDT Temperature (Route Not Specified) 37.95 DegC DegC Heart Rate Monitored 71 bpm bpm Respiratory Rate - Anes 12 br/min br/min 08/16/2022 20:44 EDT Systolic Blood Pressure Non-Invasive 102 mmHg mmHg Diastolic Blood Pressure Non-Invasive 66 mmHg mmHg 08/16/2022 20:41 EDT Systolic Blood Pressure Non-Invasive 107 mmHg mmHg Diastolic Blood Pressure Non-Invasive 73 mmHg mmHg 08/16/2022 20:40 EDT Temperature (Route Not Specified) 37.92 DegC DegC Heart Rate Monitored 74 bpm bpm Respiratory Rate - Anes 12 br/min br/min 08/16/2022 20:38 EDT Systolic Blood Pressure Non-Invasive 117 mmHg mmHg Diastolic Blood Pressure Non-Invasive 77 mmHg mmHg 08/16/2022 20:35 EDT Heart Rate Monitored 82 bpm bpm Respiratory Rate - Anes 0 br/min br/min Systolic Blood Pressure Non-Invasive 158 mmHg mmHg Diastolic Blood Pressure Non-Invasive 76 mmHg mmHg 08/16/2022 20:33 EDT Systolic Blood Pressure Non-Invasive 158 mmHg mmHg Diastolic Blood Pressure Non-Invasive 102 mmHg mmHg 08/16/2022 15:03 EDT Heart Rate Monitored 69 bpm Respiratory Rate 16 br/min Systolic Blood Pressure Non-Invasive 135 mmHg Diastolic Blood Pressure Non-Invasive 83 mmHg 08/16/2022 14:14 EDT Temperature Temporal Artery 36.6 DegC Peripheral Pulse Rate 68 bpm Respiratory Rate 16 br/min Systolic Blood Pressure Non-Invasive 139 mmHg Diastolic Blood Pressure Non-Invasive 85 mmHg , Oxygen Therapy : Oxygen Therapy & Oxygenation Information 08/17/2022 3:01 EDT Oxygen Therapy Nasal cannula 0L-6L Oxygen Saturation 95 % Oxygen Flow Rate 2 08/17/2022 2:09 EDT Oxygen Therapy Nasal cannula 0L-6L Oxygen Flow Rate 2 08/17/2022 1:01 EDT Oxygen Therapy Nasal cannula 0L-6L Oxygen Saturation 95 % Oxygen Flow Rate 2 08/17/2022 0:38 EDT Oxygen Therapy Nasal cannula 0L-6L Oxygen Saturation 100 % Oxygen Flow Rate 3L 08/17/2022 0:18 EDT Oxygen Therapy Nasal cannula 0L-6L Oxygen Saturation 100 % Oxygen Flow Rate 3L 08/17/2022 0:04 EDT Oxygen Therapy Nasal cannula 0L-6L Oxygen Saturation 99 % Oxygen Flow Rate 3L 08/16/2022 23:48 EDT Oxygen Therapy Nasal cannula 0L-6L Oxygen Saturation 94 % Oxygen Flow Rate 3L 08/16/2022 23:30 EDT Oxygen Therapy Nasal cannula 0L-6L Oxygen Saturation 95 % (Modified) Oxygen Flow Rate 3L 08/16/2022 23:25 EDT Oxygen Saturation 100 % % 08/16/2022 23:20 EDT Oxygen Saturation 99.8 % % 08/16/2022 23:15 EDT Oxygen Saturation 100 % % 08/16/2022 23:10 EDT Oxygen Saturation 100 % % 08/16/2022 23:05 EDT Oxygen Saturation 100 % % 08/16/2022 23:00 EDT Oxygen Saturation 100 % % 08/16/2022 22:55 EDT Oxygen Saturation 100 % % 08/16/2022 22:50 EDT Oxygen Saturation 100 % % 08/16/2022 22:45 EDT Oxygen Saturation 100 % % 08/16/2022 22:40 EDT Oxygen Saturation 100 % % 08/16/2022 22:35 EDT Oxygen Saturation 100 % % 08/16/2022 22:30 EDT Oxygen Saturation 99.9 % % 08/16/2022 22:25 EDT Oxygen Saturation 100 % % 08/16/2022 22:20 EDT Oxygen Saturation 100 % % 08/16/2022 22:15 EDT Oxygen Saturation 100 % % 08/16/2022 22:10 EDT Oxygen Saturation 100 % % 08/16/2022 22:05 EDT Oxygen Saturation 100 % % 08/16/2022 22:00 EDT Oxygen Saturation 100 % % 08/16/2022 21:55 EDT Oxygen Saturation 100 % % 08/16/2022 21:50 EDT Oxygen Saturation 100 % % 08/16/2022 21:45 EDT Oxygen Saturation 100 % % 08/16/2022 21:40 EDT Oxygen Saturation 99.5 % % 08/16/2022 21:35 EDT Oxygen Saturation 100 % % 08/16/2022 21:30 EDT Oxygen Saturation 100 % % 08/16/2022 21:25 EDT Oxygen Saturation 99.9 % % 08/16/2022 21:20 EDT Oxygen Saturation 99.6 % % 08/16/2022 21:15 EDT Oxygen Saturation 100 % % 08/16/2022 21:10 EDT Oxygen Saturation 99 % % 08/16/2022 21:05 EDT Oxygen Saturation 100 % % 08/16/2022 21:00 EDT Oxygen Saturation 100 % % 08/16/2022 20:55 EDT Oxygen Saturation 100 % % 08/16/2022 20:50 EDT Oxygen Saturation 100 % % 08/16/2022 20:45 EDT Oxygen Saturation 100 % % 08/16/2022 20:40 EDT Oxygen Saturation 100 % % 08/16/2022 20:35 EDT Oxygen Saturation 100 % % 08/16/2022 15:03 EDT Oxygen Therapy Room air Oxygen Saturation 93 % 08/16/2022 14:14 EDT Oxygen Therapy Room air Oxygen Saturation 93 % . Mental status: at preoperative baseline. Respiratory function: respirations are non-labored, Stable. Respiratory support: none. CV function: Stable. Cardiovascular support: none. Pain: Satisfactory. Nausea status: Satisfactory. Postoperative hydration status: within normal limits. Notes: Patient is sufficiently recovered from anesthesia to participate in the evaluation. No follow-up care needed. No complications post-anesthesia.. Digitally Signed by GABRIELLA SCHMID MD on 08/17/2022 05:11 AM [id number] Note ORIGINAL EXAMINATION: ONE SUPINE XRAY VIEW(S) OF THE ABDOMEN 08/16/2022 11:51 pm COMPARISON: CT abdomen and pelvis on 08/16/2022 HISTORY: ORDERING SYSTEM PROVIDED HISTORY: Reason for Exam: ng placement FINDINGS: The nasogastric tube tip and the side port are both in the stomach in satisfactory position. Small bilateral pleural effusions are unchanged. IMPRESSION: Nasogastric tube is in satisfactory position. Interpreted by: Chucky Sue MD Preliminary Report By: Chucky Sue MD Electronically signed By Chucky Sue MD Dictated Date: 08/16/2022 11:52:53 PM Prelim Date: 08/16/2022 11:54:35 PM Sign Date: 08/16/2022 11:54:35 PM Ordering Provider: [facility]05-07-2023 Note ORIGINAL EXAMINATION: ONE SUPINE XRAY VIEW(S) OF THE ABDOMEN 08/16/2022 11:51 pm COMPARISON: CT abdomen and pelvis on 08/16/2022 HISTORY: ORDERING SYSTEM PROVIDED HISTORY: Reason for Exam: ng placement FINDINGS: The nasogastric tube tip and the side port are both in the stomach in satisfactory position. Small bilateral pleural effusions are unchanged. IMPRESSION: Nasogastric tube is in satisfactory position. Interpreted by: Chucky Sue MD Preliminary Report By: Chucky Sue MD Electronically signed By Chucky Sue MD Dictated Date: 08/16/2022 11:52:53 PM Prelim Date: 08/16/2022 11:54:35 PM Sign Date: 08/16/2022 11:54:35 PM Ordering Provider: [facility]05-07-2023 Anesthesiology Consult note Patient: JACKY ELLIS Age: 72 years Sex: Male : 1950 Associated Diagnoses: None Author: GABRIELLA SCHMID MD Preoperative Information NPO > 8 hours Anesthesia history Patient's history: negative. Health Status Allergies: Allergic Reactions (Selected) Severity Not Documented Penicillin- Skin breakdown., Allergies (1) ActiveReaction penicillinSkin breakdown Current medications: (Selected) Inpatient Medications Ordered Betadine 10% topical solution: Start: 07/08/21 6:00:00 EDT, Dose = 17.5 mL, Topical (INT), PREOP pharm, 18 hour(s), Stop: 07/08/21 23:59:00 EDT, mL/hr, Infuse over: 0 minute(s), 0 Bicitra: Start: 07/08/21 6:00:00 EDT, Dose = 30 mL, Soln, Oral, PREOP pharm, Stop: 07/08/21 23:59:00 EDT, 0 Bolus LR 1000 mL: Start: 07/08/21 6:00:00 EDT, Dose = 1,000 mL, Soln, IV Bolus, PREOP pharm, 18 hour(s), Stop: 07/08/21 23:59:00 EDT Cyklokapron IVPB: Start: 07/08/21 6:00:00 EDT, Dose = 2,000 mg, = 20 mL, Topical (INT), PREOP pharm, 18 hour(s), Stop: 07/08/21 23:59:00 EDT, mL/hr, Infuse over: 0 minute(s), 0 Decadron: Start: 07/08/21 6:00:00 EDT, Dose = 10 mg, = 1 mL, IV Push, AsDirected, 18 hour(s), Stop:07/08/21 23:59:00 EDT, 0 Kefzol: Start: 07/08/21 6:00:00 EDT, Dose = 3 gram(s), IV Piggyback, PREOP pharm, Stop: 07/08/21 23:59:00 EDT, Rate: 200 mL/hr, Infuse over: 30 minute(s), 0 Naropin 25 mg + Toradol 15 mg + EPINEPHrine 1 mg/mL injectable solution 0.3 mg + morphine 2.5 mg...: Start: 07/08/21 6:00:00 EDT, Other, PREOP pharm, 18 hour(s), Stop: 07/08/21 23:59:00 EDT, mL/hr, Infuse over: 0 minute(s), 0 Naropin 25 mg + Toradol 15 mg + EPINEPHrine 1 mg/mL injectable solution 0.3 mg + morphine 2.5 mg...: Start: 07/08/21 6:00:00 EDT, Other, PREOP pharm, 18 hour(s), Stop: 07/08/21 23:59:00 EDT, mL/hr, Infuse over: 0 minute(s), 0 OxyCONTIN: Start: 07/08/21 6:00:00 EDT, Dose = 10 mg, = 1 tab(s), Oral, PREOP pharm, Stop: 07/08/2222:59:00 EDT, 0 Pepcid IV: Start: 07/08/21 6:00:00 EDT, Dose = 20 mg, = 2 mL, IV Push, PREOP pharm, Stop: 07/08/21 23:59:00 EDT, 0 vancomycin: Start: 07/08/21 6:00:00 EDT, Dose = 1,750 mg, = 35 mL, IV Piggyback, PREOP pharm, Stop:07/08/21 23:59:00 EDT, Rate: 306 mL/hr, Infuse over: 1.7 hour(s), 0 Prescriptions Prescribed Farxiga 10 mg oral tablet: Dose : 10 mg = 1 tab(s), Oral, qDay, # 30 tab(s), 11 Refill(s), Pharmacy: [facility]/pharmacy #[id number], 188, cm, 07/13/22 10:06:00 EDT, Height Xarelto 15 mg oral tablet: Dose : 15 mg = 1 tab(s), Oral, qHS, with food with evening meal, # 30 tab(s), 11 Refill(s), Pharmacy: [facility]/pharmacy #[id number], 188, cm, 06/19/22 8:56:00 EST, Height, 117.5, kg, 06/19/22 8:56:00 EST, Dosing Weight acetaminophen-oxyCODONE 325 mg-5 mg oral tablet: Dose = 1 tab(s), Oral, q6hr, PRN PRN as needed forpain, X 3 day(s), # 12 tab(s), 0 Refill(s), Ventral hernia, 113.6 amiodarone 200 mg oral tablet: Dose : 200 mg = 1 tab(s), Oral, qDay, # 90 tab(s), 3 Refill(s), Pharmacy: [facility]/pharmacy #[id number], 188, cm, 12/17/21 9:12:00 EDT, Height, kg, 12/17/21 9:12:00 EDT, Dosing Weight carvedilol 25 mg oral tablet: Dose : 25 mg = 1 tab(s), Oral, BID, # 180 tab(s), 3 Refill(s), Pharmacy: [facility]/pharmacy #[id number], 188, cm, 12/17/21 9:12:00 EDT, Height, kg, 12/17/21 9:12:00 EDT, Dosing Weight Documented Medications Documented bumetanide 1 mg oral tablet: Dose : 1 mg = 1 tab(s), Oral, BID, PRN PRN fluid retention, No qualifying data available Problem list: Medical Postoperative anemia / SNOMED CT 017555304 / Confirmed Aneurysm, thoracic aortic / SNOMED CT 8028172053 / Confirmed Aortic root dilation / SNOMED CT 557107377 / Confirmed OBESITY (BMI 30-39.9) / SNOMED CT 133184148 / Confirmed LOW HDL (UNDER 40) / SNOMED CT 734174609 / Confirmed CRF (CHRONIC RENAL FAILURE), STAGE 2 (MILD) / SNOMED CT 5069266751 / Confirmed CORONARY ARTERY DISEASE, OCCLUSIVE / SNOMED CT 63559920 / Confirmed FISTULA, CORONARY ARTERY / SNOMED CT 9806905185 / Confirmed Encounter for monitoring cardiotoxic drug therapy / SNOMED CT 446352328 / Confirmed Fatigue / SNOMED CT 025441612 / Confirmed HISTORY OF CHRONIC BACK PAIN / SNOMED CT 229945232 / Confirmed RECEIVED INFLUENZA VACCINATION AT HOSPITAL / SNOMED CT 391699627 / Confirmed HFrEF (heart failure with reduced ejection fraction) / SNOMED CT 9552163585 / Confirmed Hyperlipidemia / SNOMED CT 60144428 / Confirmed ELEVATED GLUCOSE / SNOMED CT 046656319 / Confirmed SCOLIOSIS/KYPHOSCOLIOSIS / SNOMED CT 447592648 / Confirmed Left-sided weakness/bilateral frontoparietal foci of acute ischemia / SNOMED CT 051435597 / Confirmed Newly diagnosed diabetes HgbA1C 6.9 / SNOMED CT 5610193178 / Confirmed Preop cardiovascular exam / SNOMED CT 933828245 / Confirmed PERSISTENT ATRIAL FIBRILLATION / SNOMED CT 1578170564 / Confirmed PNEUMOCOCCAL VACCINATION GIVEN / SNOMED CT 439506319 / Confirmed RIGHT BUNDLE-BRANCH BLOCK / SNOMED CT 59914228 / Confirmed Type II diabetes mellitus / SNOMED CT 891918464 / Confirmed, Active Problems (35) Acute chest pain AF (atrial fibrillation) Aneurysm, thoracic aortic Aortic root dilation Arthritis CHF (congestive heart failure) CORONARY ARTERY DISEASE, OCCLUSIVE CRF (CHRONIC RENAL FAILURE), STAGE 2 (MILD) ELEVATED GLUCOSE Encounter for monitoring cardiotoxic drug therapy Fatigue FISTULA, CORONARY ARTERY Glasses HFrEF (heart failure with reduced ejection fraction) Hiatal hernia HISTORY OF CHRONIC BACK PAIN HTN (hypertension) Hyperlipidemia Left-sided weakness/bilateral frontoparietal foci of acute ischemia LOW HDL (UNDER 40) Newly diagnosed diabetes HgbA1C 6.9 OBESITY (BMI 30-39.9) Osteoarthritis Pain management PERSISTENT ATRIAL FIBRILLATION PNEUMOCOCCAL VACCINATION GIVEN Postoperative anemia Preop cardiovascular exam RECEIVED INFLUENZA VACCINATION AT HOSPITAL RIGHT BUNDLE-BRANCH BLOCK Scoliosis SCOLIOSIS/KYPHOSCOLIOSIS Spinal stenosis Type II diabetes mellitus Wrist fracture Histories Past Medical History: Resolved Elevated glucose ([id number]): Resolved. Family History: Cancer Mother Brother Sister Father Procedure history: PM Inj Spine L/S With Imaging SN on 06/29/2022 at 71 Years. Comments: 06/29/2022 8:49 SWATHI Carlos auto-populated from documented surgical case History of reverse left total shoulder arthroplasty ([id number]) in the month of 12/2021 at 71 Years. Comments: 05/13/2022 14:[address] [facility] Cardioversion ([id number]) on 06/16/[address] angiography of chest with contrast ([id number]) on 06/04/2021 at 70 Years. Echocardiogram ([id number]) on 11/21/2020 at 70 Years. Comments: 03/15/2021 12:17 Mere Singh LPN (11/21/20) Summary: 1. Left ventricle: The cavity size is increased. Systolic function is mildly reduced. The estimatedejection fraction is 45-50%. Mild diffuse hypokinesis. Diastolic dysfunction is present. 2. Aortic valve: There is mild stenosis. There is mild regurgitation. 3. Mitral valve: The annulus is calcified. There is mild to moderate regurgitation. 4. Left atrium: The atrium is mildly dilated. 5. Right ventricle: Systolic function is reduced. The RV systolic pressure by Doppler is 54 mm Hg. 6. Right atrium: The atrium is mildly dilated. The estimated right atrial pressure is 3 mm Hg. 7. Pericardium, extracardiac: There is a right pleural effusion. Aortic valve replacement and aortoplasty ([id number]) on 11/19/2020 at 70 Years. Comments: 03/15/2021 12:17 Mere Singh LPN REPAIR ASCENDING AORTIC DISSECTION USING HEMASHIELD 34 MM WOVEN GRAFT, INSERTION TEMPORARY PACING WIRES Cardioversion ([id number]) on 01/26/2019 at 68 Years. Comments: 05/19/2019 9:01 Carlee iDaz MA (ABR-OE) successful cardioversion to normal sinus rhythm Stress testing using pharmacologic-induced stress ([id number]) on 10/20/2018 at 68 Years. Comments: 05/19/2019 9:00 Carlee Diaz MA (ABR-OE) EKG portion of Lexiscan stress test is negative for inducible ischemia 1. Reversible defect in the inferior, inferolateral, lateral and anterolateral bhandari suggesting ischemia in this area. 2. Mildly dilated LEFT ventricle with an ejection fraction of 26%. Wall motion as above. Cardiac catheterization ([id number]) on 10/18/2018 at 68 Years. Comments: 05/19/2019 8:57 Carlee Diaz MA (ABR-OE) SUMMARY: 1. Right coronary: Proximal vessel lesion: There is a 100% stenosis. Appearance of POLYETHYLENE COMBINER with small jump collaterals to mid RCA. RPDA fills via collaterals from the LAD. 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 IMPRESSIONS: 1. Single vessel coronary artery disease, predominantly involving the RCA. 2. The proximal lesion has appearance of chronic total occlusion with small jump collaterals to midRCA. There are collaterals filling the RPDA from left anterior descending artery. 3. 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 4. Case discussed with CT surgery due to incidental finding of LAD fistula to PA. Will pursue stress test to evaluate for anterior wall ischemia possibly related to shunt from proximal LAD fistula Hernia repair ([id number]). Colonoscopy ([id number]). Social History Social & Psychosocial Habits Alcohol 05/13/2022 Use: Past Substance Abuse 05/13/2022 Use: Current Type: Marijuana Frequency: 1-2 times per week Comment: has a medical card for this uses gummies and ointments - 05/13/2022 14:04 - SWATHI Jones Tobacco 05/19/2019 Tobacco Use: Never (less than 100 in l Home/Environment 06/16/2021 Domestic Concerns None Living situation: Home/Independent Nutrition/Health 06/16/2021 Type of diet: Regular Appetite Excellent Eating Difficulties None 05/13/2022 Caffeine intake amount: 2 cups per week . Physical Examination Vital Signs(last 24 hrs) Last Charted Heart Rate [id number] bpm (AUGUST 16 15:) Resp Rate 16 br/min (AUGUST 16 15:) [id number] mmHg (AUGUST 16 15:) DBP83 mmHg (AUGUST 16 15:) Measurements from flowsheet : Measurements 08/16/2022 14:14 EDT Admission Weight 113.6 kg General: Alert and oriented. Dentition Evaluation: Dentures, partial plate. Respiratory: Lungs are clear to auscultation, Respirations are non-labored. Cardiovascular: Normal rate, Regular rhythm. Heart Sounds: Normal. Neurologic: Alert. Review / Management Results review: Labs (Last four charted values) WBC 7.1(AUGUST 16) Hgb 13.2(AUGUST 16) Hct 40.2(AUGUST 16) Plt L 145(AUGUST 16) Na L 135(AUGUST 16) K 4.4(AUGUST 16) CO2 29(AUGUST 16) Cl 100(AUGUST 16) Cr H 1.46(AUGUST 16) BUN 18.0(AUGUST 16) Glucose 109(AUGUST 16) Ca 9.4(AUGUST 16) PT H 19.3(AUGUST 16) INR 1.6(AUGUST 16) PTT 33.0(AUGUST 16) . Documentation reviewed: Current records. Assessment and Plan [place] [employer] (ASA) physical status classification: Class III, E. Anesthetic Preoperative Plan Premedication: intravenous. Anesthetic technique: General. Induction: intravenously. Maintenance airway: Oral endotracheal tube. Postoperative pain management: Per surgeon. Informed consent: signed by patient. Notes: A-Fib, CHF. Digitally Signed by GABRIELLA SCHMID MD on 08/16/2022 08:19 PM [id number] History and physical note Date of Service 08/16/2022 History of Present Illness 72-year-old male with a history of CAD, A-fib on Xarelto last taken Wednesday a.m., diabetes presents with incarcerated hernia. He was diagnosed with this on Wednesday in [place] and despite recommendations from the ER decided to go home because he was feeling better. His pain has been persistent and truly worsened through the day today decided to come back to the ER for evaluation. Emesis some nausea denies vomiting last bowel movement was yesterday was normal at that time. Review of Systems All other systems reviewed and negative. Physical Exam Vitals and Measurements T: 36.6 C (Temporal Artery) HR: 69(Monitored) RR: 16 BP: 135/83 SpO2: 93% WT: 113.6 kg Weight Dosing Weight: 113.6 kg (08/16/22) No acute distress Nonlabored breathing on room air Abdomen soft moderate tenderness near the umbilicus with associated erythema and palpable hernia Moves all extremities Skin warm and dry , Cooperative and O x3 Lab Results 08/16 17:01 Protime: 19.3 H PT International Ratio: 1.6 08/16 14:35 WBC: 7.1 Hgb: 13.2 Hct: 40.2 Platelet: 145 L Neutrophil %: 78.8 H Glucose Level: 109 Sodium Level: 135 L Potassium Level: 4.4 BUN: 18.0 Creatinine Lvl (s): 1.46 H Assessment/Plan Abdominal pain Hernia Patient to go to the OR today for robotic incarcerated umbilical hernia repair possible open possible bowel resection. Patient will need NG tube and 5 of vitamin K as ordered prior to or all questions concerns were answered. Patient agreed with plan. Problem List/Past Medical History Ongoing Aneurysm, thoracic aortic Aortic root dilation CORONARY ARTERY DISEASE, OCCLUSIVE CRF (CHRONIC RENAL FAILURE), STAGE 2 (MILD) ELEVATED GLUCOSE Encounter for monitoring cardiotoxic drug therapy Fatigue FISTULA, CORONARY ARTERY HFrEF (heart failure with reduced ejection fraction) HISTORY OF CHRONIC BACK PAIN Hyperlipidemia Left-sided weakness/bilateral frontoparietal foci of acute ischemia LOW HDL (UNDER 40) Newly diagnosed diabetes HgbA1C 6.9 OBESITY (BMI 30-39.9) PERSISTENT ATRIAL FIBRILLATION PNEUMOCOCCAL VACCINATION GIVEN Postoperative anemia Preop cardiovascular exam RECEIVED INFLUENZA VACCINATION AT HOSPITAL RIGHT BUNDLE-BRANCH BLOCK SCOLIOSIS/KYPHOSCOLIOSIS Type II diabetes mellitus Historical Elevated glucose Procedure/Surgical History 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/2021 Cardioversion: 06/16/21 CT angiography of chest with contrast: 06/04/21 Echocardiogram: 11/21/20 Aortic valve replacement and aortoplasty: 11/19/20 Cardioversion: 01/26/19 Stress testing using pharmacologic-induced stress: 10/20/18 Cardiac catheterization: 10/18/18 Hernia repair Colonoscopy Medications Home Medications (10) Active acetaminophen-oxyCODONE 325 mg-5 mg oral tablet 1 tab(s), PRN, Oral, q6hr amiodarone 200 mg oral tablet 200 mg = 1 tab(s), Oral, qDay atorvastatin 40 mg oral tablet 40 mg = 1 tab(s), Oral, qDay carvedilol 25 mg oral tablet 25 mg = 1 tab(s), Oral, BID Farxiga 10 mg oral tablet 10 mg = 1 tab(s), Oral, qDay herbal/nutritional product 200 mg, Oral, Daily tiZANidine 4 mg oral tablet 4 mg = 1 tab(s), PRN, Oral, q8h Vitamin C 500 mg oral tablet 500 mg = 1 tab(s), Oral, qDay Vitamin D3 1,000 unit(s) = 1 tab(s), Oral, Daily Xarelto 15 mg oral tablet 15 mg = 1 tab(s), Oral, qHS Allergies penicillin (Skin breakdown) Social History Alcohol Use: Past., 05/13/2022 Home/Environment Domestic Concerns: None. Living situation: Home/Independent., 06/16/2021 Nutrition/Health Caffeine intake amount: 2 cups per week., 05/13/2022 Type of diet: Regular. Appetite Excellent. Eating Difficulties None., 06/16/2021 Substance Abuse Use: Current. Type: Marijuana. Frequency: 1-2 times per week., 05/13/2022 Tobacco Nicotine Use: Never (less than 100 in lifetime)., 05/19/2019 Family History Cancer: Mother, Father, Sister and Brother. Immunizations pneumococcal 13-valent conjugate vaccine: 0.5 unknown unit (06/03/17) pneumococcal 23-valent vaccine(Pneumovax: 0.5 unknown unit (02/08/19) SARS-CoV-2 (COVID-19) mRNA-1273 vaccine: 0.5 unknown unit (08/02/20) SARS-CoV-2 (COVID-19) mRNA-1273 vaccine: 0.5 unknown unit (07/05/20) tetanus/diphth/pertuss (Tdap) adult/adol: 0 unknown unit (01/30/16) Code Status Code Status - Ordered -- 08/16/22 17:55:00 EDT, Full Code, Constant Order Digitally Signed by REYNALDO STERN DO on 08/16/2022 07:11 PM [facility] [id number] Note ORIGINAL EXAMINATION: CT OF THE ABDOMEN AND PELVIS WITH CONTRAST 08/16/2022 4:27 pm TECHNIQUE: CT of the abdomen and pelvis was performed with the administration of intravenous contrast. Multiplanar reformatted images are provided for review. Automated exposure control, iterative reconstruction, and/or weight based adjustment of the mA/kV was utilized to reduce the radiation dose to as low as reasonably achievable. COMPARISON: CT abdomen/pelvis on 08/14/2022 HISTORY: ORDERING SYSTEM PROVIDED HISTORY: Reason for Exam: s/p fall x 3 days ago. redness, pain and swelling mid abd. pain FINDINGS: Lower Chest: Stable small bilateral pleural effusions. Organs: Nodular contour of the liver again noted. Periportal edema is present, similar to the prior study. No focal splenic lesions. Normal pancreas, gallbladder, and adrenal glands. Symmetric kidneys without hydronephrosis. A stable 3.3 cm cyst is present at the superior pole of the right kidney. GI/Bowel: Mildly dilated small bowel proximal to an umbilical hernia containing a short loop of small bowel. Distal small bowel is collapsed. No evidence of acute appendicitis. Sigmoid diverticulosis without diverticulitis. Pelvis: No bladder wall thickening. Normal size prostate. Peritoneum/Retroperitoneum: Small volume of free pelvic fluid is similar to the prior study. A small volume of fluid is also noted within the umbilical hernia adjacent to the loop of small bowel. No free air. Nonaneurysmal aorta. Central mesenteric haziness in the mid abdomen containing numerous, subcentimeter short axis lymph nodes is similar to the prior study. Bones/Soft Tissues: No aggressive osseous lesion. Degenerative changes in the spine. Grade 1 anterolisthesis of L5 on S1 with associated bilateral L5 pars defects. Mild reactive subcutaneous infiltrative changes around the umbilical hernia, progressed from the prior study. Small fat and fluid containing left inguinal hernia. IMPRESSION: Small bowel obstruction with the transition point at the umbilical hernia, which contains a short loop of small bowel. Mild reactive subcutaneous infiltrative changes around the umbilical hernia. Surgical consultation may be warranted. Additional stable findings as above. I have personally reviewed the images of this examination and agree with the resident's findings and interpretation. Interpreted by: Flavio Oh Preliminary Report By: Sam Simental Electronically signed By Flavio Oh Dictated Date: 08/16/2022 4:37:07 PM Prelim Date: 08/16/2022 4:56:10 PM Sign Date: 08/16/2022 5:19:54 PM Ordering Provider: [facility]05[facility]07[facility]2023 Note ORIGINAL EXAMINATION: CT OF THE ABDOMEN AND PELVIS WITH CONTRAST 08/16/2022 4:27 pm TECHNIQUE: CT of the abdomen and pelvis was performed with the administration of intravenous contrast. Multiplanar reformatted images are provided for review. Automated exposure control, iterative reconstruction, and/or weight based adjustment of the mA/kV was utilized to reduce the radiation dose to as low as reasonably achievable. COMPARISON: CT abdomen/pelvis on 08/14/2022 HISTORY: ORDERING SYSTEM PROVIDED HISTORY: Reason for Exam: s/p fall x 3 days ago. redness, pain and swelling mid abd. pain FINDINGS: Lower Chest: Stable small bilateral pleural effusions. Organs: Nodular contour of the liver again noted. Periportal edema is present, similar to the prior study. No focal splenic lesions. Normal pancreas, gallbladder, and adrenal glands. Symmetric kidneys without hydronephrosis. A stable 3.3 cm cyst is present at the superior pole of the right kidney. GI/Bowel: Mildly dilated small bowel proximal to an umbilical hernia containing a short loop of small bowel. Distal small bowel is collapsed. No evidence of acute appendicitis. Sigmoid diverticulosis without diverticulitis. Pelvis: No bladder wall thickening. Normal size prostate. Peritoneum/Retroperitoneum: Small volume of free pelvic fluid is similar to the prior study. A small volume of fluid is also noted within the umbilical hernia adjacent to the loop of small bowel. No free air. Nonaneurysmal aorta. Central mesenteric haziness in the mid abdomen containing numerous, subcentimeter short axis lymph nodes is similar to the prior study. Bones/Soft Tissues: No aggressive osseous lesion. Degenerative changes in the spine. Grade 1 anterolisthesis of L5 on S1 with associated bilateral L5 pars defects. Mild reactive subcutaneous infiltrative changes around the umbilical hernia, progressed from the prior study. Small fat and fluid containing left inguinal hernia. IMPRESSION: Small bowel obstruction with the transition point at the umbilical hernia, which contains a short loop of small bowel. Mild reactive subcutaneous infiltrative changes around the umbilical hernia. Surgical consultation may be warranted. Additional stable findings as above. I have personally reviewed the images of this examination and agree with the resident's findings and interpretation. Interpreted by: Flavio Oh Preliminary Report By: Sam Simental Electronically signed By Flavio Oh Dictated Date: 08/16/2022 4:37:07 PM Prelim Date: 08/16/2022 4:56:10 PM Sign Date: 08/16/2022 5:19:54 PM Ordering Provider: [facility]05-07-2023 Hospital Discharge instructions Follow Up Care 08/16/2022 14:13:26 With:[facility], Address:Unknown When: Unknown With:KENAN NEWTON BROOK[place]N Address: [address] [facility] [address] [place] [address]- When:1-2 days only if needed Comments:As needed With:REYNALDO STERN DO, Surgery Address: [address] [facility] [place] [address] [facility] [place] [address]- [phone] When:09/01/2022 15:45:00 [facility] 05-07-[facility] Evaluation + Plan noteExtracted from: Title:History and Physical Author:MATA STERN DO Date:08/16/22 Abdominal pain Hernia Patient to go to the OR today for robotic incarcerated umbilical hernia repair possible open possible bowel resection. Patient will need NG tube and 5 of vitamin K as ordered prior to or all questions concerns were answered. Patient agreed with plan. Future Appointments Appointment Date:09/01/2022 03:45:00 PM Scheduled Provider:REYNALDO STERN DO Location:[facility] Appointment Type:[facility] Post Op Diagnostic Tests Pending * COVID/FLU/RSV PCR Screen 08/22/22 Future Scheduled Tests Laboratory* Basic Metabolic Panel 09/25/21 * Basic Metabolic Panel 10/23/21 * Basic Metabolic Panel 11/20/21 * Basic Metabolic Panel 12/18/21 * Basic Metabolic Panel 07/20/22 * Thyroid Stimulating Hormone 09/19/22 * Complete Blood Count 09/19/22 * Complete Blood Count 03/18/22 * Complete Metabolic Panel 09/19/22 * N-Terminal proBNP 09/25/21 * N-Terminal proBNP 10/23/21 * N-Terminal proBNP 11/20/21 * N-Terminal proBNP 12/18/21 * N-Terminal proBNP 09/19/22 * N-Terminal proBNP 03/18/22 Radiology* CT Angiography Chest w/ Contrast 06/19/23 * XR Chest 2 Views (PA & Lateral) 12/26/21 [facility] 03-20[facility]23 Hospital Discharge instructions Patient Education 06/29/2022 08:41:31 Epidural Steroid Injection, Care After Epidural Steroid Injection, Care After Refer to this sheet in the next few weeks. These instructions provide you with information about caring for yourself after your procedure. Your health care provider may also give you more specific instructions. Your treatment has been planned according to current medical practices, but problems sometimes occur. Call your health care provider if you have any problems or questions after your procedure. What can I expect after the procedure? After your procedure, it is common to feel a little discomfort at the injection site. Follow these instructions at home: For 24 hours after the procedure: ?Avoid using heat on the injection site. ?Do not take a tub bath, and do not soak in water. ?Do not drive if you received a medicine to help you relax (sedative). If directed, put ice on the injection site: ?Put ice in a plastic bag. ?Place a towel between your skin and the bag. ?Leave the ice on for 20 minutes, 2 3 times a day. Return to your normal activities as told by your health care provider. Ask your health care provider what activities are safe for you. You may remove the bandage (dressing) after 24 hours. Take uafz-pzd-dokirnj and prescription medicines only as told by your health care provider. Keep all follow-up visits as told by your health care provider. This is important. Contact a health care provider if: You have a fever. You continue to have pain and soreness around the injection site, even after taking nnxh-rmq-wyxgipa pain medicine. You have severe, sudden, or lasting nausea or vomiting. Get help right away if: You have severe pain at the injection site that is not relieved by medicines. You develop a severe headache or a stiff neck. You become sensitive to light. You have any new numbness or weakness in your legs or arms. You lose control of your bladder or bowel movements. You have trouble breathing. This information is not intended to replace advice given to you by your health care provider. Make sure you discuss any questions you have with your health care provider. Document Released: 07/14/2011 Document Revised: 03/11/2018 Document Reviewed: 07/14/2016 [employer] Patient Education 2020 [employer]. Follow Up Care 06/24/2022 10:23:44 With:DELMAR MORENO MD Address: [address] [place] [address] [facility] [place] [address]- [phone] When: Unknown Comments:ASSCHEDULED [facility] 03-20-2023 Note ORIGINAL Images acquired, not reported on this accession number. [facility]03-20-2023 Note ORIGINAL Images acquired, not reported on this accession number.[facility]03-20-2023 Note Preoperative Diagnosis lumbar radiculopathy Postoperative Diagnosis lumbar radiculopathy Operation PM Inj Spine L/S With Imaging SN, L5-S1 PRASANNA Operation/Procedure Pre op Diagnosis: LUMBAR RADICULIOPATHY Post op Diagnosis: THE SAME Operation: LUMBAR Epidural L5-S1 Interspace with fluoroscopy This procedure is being done for THERAPEUTIC fluroscopy 6s INDICATIONS FOR PROCEDURE: The patient agrees to the procedure after the risks and benefits were discussed and questions were answered. The risks and benefits of proceeding with the injection were explained to the patient including but not limited to spinal headache, nerve damage, infection, rare chance of bleeding next to the spine causing emergent surgery possible paralysis increased pain, no pain relief, related side effects of the medication that may cause edema, swelling, facial flushing, skin reactions, bone problems, increase blood sugar and the fact that this is a treatment not a cureof the underlying disease. The patient has failed other treatment modalities prior to this procedure. These modalities may include, but are not limited to, medication trials, physical therapy, and other invasive modalities of pain management. Upon completion of each procedure and prior to each subsequent procedure, the patient will be re- evaluated for the need to perform the scheduled procedure. Subsequent procedures are only performed if the patient continues to have pain or symptomatology that warrants the procedure. DESCRIPTION OF OPERATION: The patient was brought into PROCECURE ROOM placed in the sitting position. Under sterile prep, the interspace was identified and confirmed with fluoroscopy. Local with 3 cc of 1% lidocaine was instilled at this interspace. Utilizing an 18 gauge Tuohy needle, the epidural space was identified via loss of resistance of technique. With fluoroscopic confirmation of the needle and negative aspiration, No blood, CSF, or paresthesias were encountered I then injected 2 ml of Omnipaque 300 that showed clear delineation of the epidural space, then 12 mg betamethasone with 2 cc preservative-free saline was injected. The needle was removed intact. The patient tolerated the procedure well and was subsequently discharged in stable condition without sequela. 8 ML OF OMNIPAQUE 300 WAS WASTED PLAN: Follow up pain center. Patient to contact pain center or ER if any concerns. DISCHARGE NOTE Condition Upon Discharge Stable Follow Up in Pain management Clinic as scheduled Follow Up Appointments per Pain Management Clinic Patient to call if any questions about appointments Discharge Diet As Tolerated Discharge Activity As Tolerated Discharge Disposition Stable no significant complaints Surgeon(s) DELMAR MORENO MD (Primary Surgeon) Digitally Signed by DELMAR MORENO MD on 06/29/2022 08:51 AM [facility]03-20-2023 Summary of episode note Discharge Instructions Thank you for allowing [facility] to assist you with your healthcare needs. The following is importantdischarge information regarding your hospital visit. Your Care Team HODA GRAYSON MD What to do next Follow Up Appointments Follow Up with DELMAR MORENO MD When Why: ASSCHEDULED Where: [address] [facility] [place] [address] [phone] The Following Activity and Diet Have Been Ordered for You No qualifying data available. No qualifying data available. The Following Equipment Has Been Ordered for You No qualifying data available. The Following Treatments Have Been Ordered for You Discharge Labs No qualifying data available. Discharge Radiology No qualifying data available. Other Therapies No qualifying data available. Post Acute Orders No qualifying data available. Someone Will Contact You Regarding These Home Health Referrals No home referrals have been ordered for you. No one will call you. Allergies penicillin (Skin breakdown) Medications Please ask your primary doctor or pharmacist before taking any other medication not listed, including over the counter drugs, herbal medications, vitamins and or supplements as they may interact withyour home medications. What How Much When Instructions Last Dose Unchanged amiodarone (amiodarone 200 mg oral tablet) 1 tab(s) by mouth Once a day Unchanged ascorbic acid (Vitamin C 500 mg oral tablet) 1 tab(s) by mouth Once a day Unchanged bumetanide (bumetanide 1 mg oral tablet) 1 tab(s) by mouth Every day Unchanged carvedilol (carvedilol 25 mg oral tablet) 1 tab(s) by mouth Two (2) times a day Unchanged cholecalciferol (Vitamin D3) 1,000 unit(s) by mouth Every day Unchanged empagliflozin (Jardiance 10 mg oral tablet) 1 tab(s) by mouth Once a day (in the morning) Unchanged herbal/ nutritional product 200 Milligram by mouth Every day potassium Unchanged rivaroxaban (Xarelto 15 mg oral tablet) 1 tab(s) by mouth Daily at bedtime with food with evening meal Unchanged tiZANidine (tiZANidine 4 mg oral tablet) 1 tab(s) by mouth Every 8 hours as needed for as needed for muscle spasm Please take this list to your next doctor s visit. Bring all medications you take, including over the counter medications, herbals and other supplements with you to your doctor s visit. Patients and families are reminded to discard old lists and to update any records with all medication providers or retail pharmacies. Education Materials Epidural Steroid Injection, Care After Refer to this sheet in the next few weeks. These instructions provide you with information about caring for yourself after your procedure. Your health care provider may also give you more specific instructions. Your treatment has been planned according to current medical practices, but problems sometimes occur. Call your health care provider if you have any problems or questions after your procedure. What can I expect after the procedure? After your procedure, it is common to feel a little discomfort at the injection site. Follow these instructions at home: For 24 hours after the procedure: ? Avoid using heat on the injection site. ? Do not take a tub bath, and do not soak in water. ? Do not drive if you received a medicine to help you relax (sedative). If directed, put ice on the injection site: ? Put ice in a plastic bag. ? Place a towel between your skin and the bag. ? Leave the ice on for 20 minutes, 2 3 times a day. Return to your normal activities as told by your health care provider. Ask your health care provider what activities are safe for you. You may remove the bandage (dressing) after 24 hours. Take uyxo-zye-pwvfiox and prescription medicines only as told by your health care provider. Keep all follow-up visits as told by your health care provider. This is important. Contact a health care provider if: You have a fever. You continue to have pain and soreness around the injection site, even after taking udlh-uei-dsojlwv pain medicine. You have severe, sudden, or lasting nausea or vomiting. Get help right away if: You have severe pain at the injection site that is not relieved by medicines. You develop a severe headache or a stiff neck. You become sensitive to light. You have any new numbness or weakness in your legs or arms. You lose control of your bladder or bowel movements. You have trouble breathing. This information is not intended to replace advice given to you by your health care provider. Make sure you discuss any questions you have with your health care provider. Document Released: 07/14/2011 Document Revised: 03/11/2018 Document Reviewed: 07/14/2016 Elsevier Patient Education 2020 [employer] Additional Information VACCINATE! IT SAVES LIVES! Members of the community who have not yet received the COVID-19 vaccine and would like to receive it can visit one of [facility] vaccine clinics. There are many vaccine clinic locations within the [facility]. For locations and available times, please visit [email or web address].[email or web address] It is important to note that some COVID mobile vaccine clinics are held outdoors and may be canceled in rainy or stormy conditions. To learn more about pediatric vaccinations (ages 5-11), we invite you to visit the [facility] webpage. [email or web address].[email or web address].org/pages/6398-Uvzfr-[email or web address]-Wjdpjroslx-[email or web address]-[email or web address] stions.htmlTo learn more about the COVID-19 vaccine, we invite you to visit the CDC website for a list of frequently asked questions. https://www.cdc.gov/coronavirus/2019-ncov/vaccines/faq.html [facility] Patient Portal Access Instructions: Stay connected with your healthcare team and access your personal medical information anytime with the [facility] Patient Portal.If you would like a full copy of your medical records, please contact the [facility] Medical Records Department, Wednesday through Wednesday between 8a.m. and 4:30p.m. Please follow the directions below to access the portal: 1.Access the email account you provided upon registration to the [facility].2.Look for an invitation email from [facility].3.Open the email and access the invitation link: Accept Invitation to [facility]4.Fill in the required crockett to create your account. Sign into www.[email or web address] [employer] with your username and password that you created in the above steps to stay up to date. You can then view a summary of results, a summary of your visits, and the ability to download your summaries to your computer or send the information securely to a physician. Remember that your healthcare information is confidential, so carefully consider who you will allow to register on the [facility] Patient Portal for access to your information. You can also access the [facility] Patient Portal on the [employer] karie. Simply click on Health Records under Rob[employer] and then click on the [facility] logo. HOW TO SAFELY DISPOSE OF PRESCRIPTION MEDICATIONS Please use one of the following methods to safely dispose of your unused medications. 1.Use a drug disposal kit: the drug disposal pouch allows you to safely discard your old and unuseddrugs. Ask your nurse to give you one when you are discharged.2.Visit a local take-back location: Many local pharmacies and police departments have programs that collect old and unwanted prescriptiondrugs. Call your local pharmacy or go to [email or web address].Meddik/[email or web address] to find one close to you.3.Make use of household items: Use cat litter or old coffee grounds to dispose medications if other options arenot available. Mix your drugs with these household products, seal them in an airtight container andthrow it into the garbage. Call [facility]: [phone] to be sure your drugs can be disposed of in this way. Some medicines may require a different approach.4.Never flush your medications down the toilet. IF YOU HAVE BEEN PRESCRIBED AN OPIOID FOR PAIN If you have been prescribed an opioid (such as hydrocodone, oxycodone or morphine), it is critical to understand the possible side effects and risks of opioid pain medications. Even when taken as directed, opioids can have several side effects including: Tolerance, meaning you might need to take more of a medication for the same pain relief. Nausea, vomiting and/or constipation. Sleepiness, dizziness, dry mouth, confusion, depression or itching. Physical dependence, meaning you have withdrawal symptoms when a medication is stopped, can develop within a few days. KNOW YOUR RESPONSIBILITIES It is important to know exactly how much and how often to take the opioid pain medications you are prescribed. Never take opioids in higher amounts or more often than prescribed. Do not combine opioids with alcohol or other drugs that cause drowsiness, such as benzodiazepines, also known as benzos, including diazepam and alprazolam, muscle relaxants or sleep aids. Never sell or share prescription opioids. This is illegal. Store opioids in a secure place and out of reach of others (including children, family, friends and visitors). The last page of this document has been signed and retained as a CHART COPY. Signatures Patient Education Materials Epidural Steroid Injection, Care After Medication Leaflets My discharge plan and instructions have been reviewed and explained to me and I,JACKY ELLIS understand my current condition and have read and understand these discharge instructions. I have received a written copy of the plan/instructions. If I have questions, I am aware that I should contact my doctor. 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: Date/Time: Relationship to Patient: Witness Name/Signature: Date/Time: [facility]09-15-2022 NoteHNO ID: [id number] Author: Pita France APRN.PAINT MIXER MACHINE Service: Orthopaedic Surgery Author Type: Nurse Practitioner Type: Progress Notes Filed: 12/25/2021 9:12 AM Note Text: ORTHOPAEDIC POSTOP PROGRESS NOTE SERVICE DATE: 12/25/2021 SERVICE TIME: 0900 Subjective INTERVAL HPI: Respiratory: Denies shortness of breath or cough. Cardiac: Denies chest pain or palpitations. Musculoskeletal: Reports that the pain minimal, block still somewhat and affect.. Still has some numb/tingly sensation to the left arm, block slowly wearing off. Objective Patient Vitals for the past 24 hrs: BP Temp Temp src Pulse Resp SpO2 12/25/21 0755 139/85 37 ?C (98.6 ?F) Oral 79 20 97 % 12/25/21 0330 138/76 36.6 ?C (97.8 ?F) Oral 84 16 97 % 12/24/21 2200 136/88 36.8 ?C (98.2 ?F) Oral 79 15 95 % 12/24/21 1800 137/81 36.6 ?C (97.9 ?F) -- 78 18 97 % 12/24/21 1537 130/78 36.3 ?C (97.4 ?F) Oral 67 20 96 % 12/24/21 1115 115/65 36.2 ?C (97.2 ?F) -- 60 16 94 % 12/24/21 1100 113/66 -- -- 61 16 97 % 12/24/21 1050 122/61 -- -- 63 16 100 % 12/24/21 1045 -- -- -- 64 -- 98 % 12/24/21 1040 -- -- -- 62 -- 100 % 12/24/21 1034 117/57 36.5 ?C (97.7 ?F) -- 63 16 100 % 12/24/21 1030 117/57 -- -- -- -- -- Intake/Output Summary (Last 24 hours) at 12/25/2021 0909 Last data filed at 12/25/2021 0400 Gross per 24 hour Intake 1100 ml Output 1425 ml Net -325 ml EXAM: Cardiovascular - Heart is regular rate by radial pulse. Respiratory - nonlabored, regular, even. Musculoskeletal - Dressing is dry and intact left shoulder, sling is on. Hand and fingers are warm, cap refill less than 2 seconds. Radial pulse 2+. Neurologic - Patient is alert and appropriate. DATA: Diagnostic tests reviewed for today's visit: Most recent labs and imaging results. 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 Postop day #1: - Patient did well overnight, no new problems or complications. Vital signs are stable and afebrile. -HANDH today is 11.6/35.8. Mild acute blood loss anemia, tolerating well. -No weightbearing, no lifting with the left arm. Sling on for comfort and support as needed. Ice pack also as needed to the shoulder for pain and swelling. Pendulum exercises, passive and active assist range of motion, no limitation in degrees of motion. -Therapy is going to work with him today, going over the above restrictions, evaluating him. Appreciate their assistance. - After therapy, plan discharge home. - Resuming on Xarelto today as he takes at home. - Follow-up appointment with Dr. Henry is scheduled for 01/08/2022 at 9:15 AM. - Prescription for [place] sent to his pharmacy, [facility] in [place]. OARRS report was checked per the [place] Board of pharmacy regulations prior to providing prescription for controlled substance.- Active Problems: Acute blood loss as cause of postoperative anemia POA: No Assessment AND Plan: See above Obesity, Class I, BMI 30-34.9 POA: Unknown Assessment AND Plan: Atrial fibrillation (HCC) POA: Yes Assessment AND Plan: Hx of CABG POA: Yes Assessment AND Plan: History of stroke POA: Yes Assessment AND Plan: Resolved Problems: * No resolved hospital problems. * Medication and Non-Pharmacologic VTE Prophylaxis/Anticoagulants Anticoagulant AND Antiplatelet Medications (From admission, onward) Start Dose Route Frequency Last Action Ordered Stop 12/25/21 1630 rivaroxaban 15 mg tab(s) (XARELTO) 15 mg ORAL DAILY WITH DINNER Ordered 12/24/21 1557 -- 12/24/21 1600 vte current anticoag therapy (sd,oh) 12/24/21 1600 activity - mobilize patient (sd,ak) VTE Prophylaxis: VTE prophylaxis appropriate SIGNATURE: Pita France APRN.PAINT MIXER MACHINE PATIENT NAME: Jacky Ellis DATE: December 25, 2021 TIME: 9:09 AM [id number] NoteHNO ID: [id number] Author: Sam Andrews APRN.CRNA Service: ? Author Type: Nurse Machine Setter Supervisor Type: Anesthesia Procedure Notes Filed: 12/24/2021 8:22 AM Note Text: ANESTHESIOLOGY PROCEDURE NOTE Airway General Information Procedure Start Time/Medication Administration: 12/24/2021 7:48 AM Patient location during procedure: OR Timeout Performed Pre-procedure: timeout performed Consent Obtained: Yes Patient identity confirmed: arm band and patient Staffing Anesthesiologist: Donte Cohen MD SHEET ROCK HANGER: Sam Andrews APRN.SHEET ROCK HANGER Performed by: SHEET ROCK HANGER Indications and Patient Condition Indications for airway management: anesthesia Preoxygenated: yes anesthesia circuit Patient position: sniffing Method: asleep Cricoid Pressure: No Manual In-Line Stabilization: No Difficult Mask: No Final Airway Details Final airway type: endotracheal airway Final Endotracheal Airway: ETT Cuffed: yes Successful intubation technique: direct laryngoscopy Endotracheal tube insertion site: oral Blade: Pamela Blade size: #4 ETT size (mm): 7.5 Measured from: lips Measurement (cm): 23 Placement verified by: chest auscultation and capnometry Cormack-Lehane Classification: grade I - full view of glottis Number of attempts at approach: 1 Failed airway: no Unrecognized esophageal intubation: no Airway not difficult SIGNATURE: Sam Andrews APRN.SHEET ROCK HANGER PATIENT NAME: Jacky Ellis DATE: December 24, 2021 TIME: 8:21 AM CSN: [id number] NoteHNO ID: [id number] Author: Donte Cohen MD Service: ? Author Type: Physician Type: Anesthesia Procedure Notes Filed: 12/24/2021 7:35 AM Note Text: ANESTHESIOLOGY PROCEDURE NOTE Peripheral Nerve Block General Information Procedure Start Time/Medication Administration: 12/24/2021 7:31 AM Procedure End time: 12/24/2021 7:33 AM Patient location during procedure: pre-op Timeout Performed Pre-procedure: timeout performed Consent Obtained: Yes Patient identity confirmed: arm band Reason for block: post-op pain management/at surgeon's request Staffing Anesthesiologist: Donte Cohen MD Preparation Sterility Preparation: hand hygiene performed prior to procedure, sterile gloves, drapes, and procedure tray, gown used during line insertion, surgical cap used, mask used, sterile drape used during line insertion, skin prep agent completely dried prior to procedure Site Prep: Betadine Pre-Procedure Neuro Exam Location: LUE Sensory: intact Motor: intact Procedure Details Monitoring: Pulse OX, EKG and NIBP Block Type Upper Extremity: brachial plexus Laterality: left Injection Technique: single-shot Ultrasound Guided: No Needle Needle Type: blunt Needle Gauge: 24 G Needle Length: 51 mm Needle Localization: anatomical landmarks and nerve stimulator Test Dose Response: negative test dose Assessment Injection assessment: negative aspiration, no paresthesia on injection and incremental injection Post-Procedure Neuro Exam Expected Regional Anesthesia: Yes Medications Administered bupivacaine (PF) 0.5 % (5 mg/mL) injection - peripheral nerve block 10 mL - 12/24/2021 7:31:00 AM bupivacaine liposome (PF) 1.3 % (13.3 mg/mL) injection (EXPAREL) - peripheral nerve block 133 mg - 12/24/2021 7:31:00 AM SIGNATURE: Donte Cohen MD PATIENT NAME: Jacky Ellis DATE: December 24, 2021 TIME: 7:31 AM CSN: [id number] NoteHNO ID: [id number] Author: Bebe Calderón RN Service: ? Author Type: Registered Nurse Type: Progress Notes Filed: 12/23/2021 1:22 PM Note Text: Day of Surgery Medication Instructions: No current facility-administered medications for this encounter. Current Outpatient Medications Medication Sig Dispense Refill Aspirin 500 mg tab Take 500 mg by mouth every 4 hours as needed. Will stop today takes for pain acetaminophen (TYLENOL EXTRA STRENGTH) 500 mg tablet Take 500 mg by mouth every 8 hours as needed for pain. tiZANidine (ZANAFLEX) 4 mg tablet Take 4 mg by mouth at bedtime as needed. carvedilol (COREG) 25 mg tablet Take 25 mg by mouth twice daily with meals. rivaroxaban (XARELTO) 15 mg tablet Take 15 mg by mouth daily with dinner. LAST DOSE 72 HOURS PRE OP PER DR HENRY, DR KOWALSKI AWARE AND OKAY WITH amiodarone (PACERONE) 200 mg tablet Take 200 mg by mouth once daily. AM PER DR KOWALSKI, HX AFIB spironolactone (ALDACTONE) 25 mg tablet Take 25 mg by mouth once daily. AM, EVERY OTHER DAY amLODIPine (NORVASC) 5 mg tablet Take 5 mg by mouth once daily. AM Take all routine morning medications except for spironolactone. You should have stopped Xarelto 3 days before surgery per Dr Kowalski. Stop your aspirin as directed by surgeon and prescriber. PRE-PROCEDURE INSTRUCTIONS TO PREPARE FOR YOUR PROCEDURE: Your arrival time for your procedure is 0545 Do NOT eat any solid foods after MIDNIGHT the night prior to your procedure - this includes gum or mints. You can drink clear liquids* up until 0345, which is 2 hours before your arrival time. *Clear liquids = water, carbohydrate drink (sports drink that is clear or yellow in color), Ensure Pre-Surgery (given by DO or your DrDoyle), fruit juice without pulp (apple/cranberry), clear tea, black coffee (no cream). NO ALCOHOL. Shower the morning of the procedure, put on clean clothes, and have clean sheets for your bed to help prevent infection after your procedure. Leave all valuables such as jewelry including rings, piercings, wallets, and purses at home. Wear comfortable, loose-fitting clothing. If you wear glasses or contacts, please bring a case. SPECIAL INSTRUCTIONS: If instructed, bring your first voided urine specimen with you. If you were provided skin preparation to use prior to your procedure, complete this as directed. If you were provided Ensure Pre-Surgery drink, you need to drink this at 0345. This should be consumed quickly (in less than 5 minutes, rather than sipped over time) If you use crutches or a walker, bring them with you. If you have a home CPAP/BIPAP machine, bring it with you. If you were instructed to complete a fleets enema or bowel prep, complete as directed. Bring copy of Living Will/Power of Assistant Cook. Do not smoke or chew. If you use tobacco, quit or at least cut down before surgery. Do not smoke or chew after midnight the day before your surgery. This effects bleeding, infection, healing, and so much more. Do not take any Diet or Herbal Supplements 2 weeks prior to your surgery date. Please notify your physician if there is any change in your physical condition such as a cold, cough, fever, sore throat, or skin irritation near the surgical site. Visitors under the age of 14 are restricted in the Surgery Center. UPON ARRIVAL: Access to [facility] (the [facility]) is located on [address] [employer] parking is available for your convenience from 5am-5pm- there is a $5.00 charge for this service. Take the elevators directly inside the entrance to the 1st Floor Surgery Lobby. Sign in at the podium located to the left when you get off the elevators. A payment may be expected at the time of service. One visitor may come back to the preoperative area with you. The preoperative staff will be reviewing your medical history, please let them know if you prefer not to have a visitor with you during this time. Once you are ready for surgery, two visitors at a time are permitted in your preoperative room. [facility]08-26-2022 Hospital Discharge instructions Patient Education 12/05/2021 04:54:12 Cellulitis Skin Infection Cellulitis Cellulitis is an infection of the deep layers of skin. A break in the skin, such as a cut or scratch, can let bacteria under the skin. If the bacteria get to deep layers of the skin, it can be serious. If not treated, cellulitis can get into the bloodstream and lymph nodes. The infection can then spread throughout the body. This causes serious illness. Cellulitis causes the affected skin to become red, swollen, warm, and sore. The reddened areas havea visible border. An open sore may leak fluid (pus). You may have a fever, chills, and pain. Cellulitis is treated with antibiotics taken for 7 to 10 days. An open sore may be cleaned and covered with cool wet gauze. Symptoms should get better 1 to 2 days after treatment is started. Make sure to take all the antibiotics for the full number of days until they are gone. Keep taking the medicine even if your symptoms go away. Home care Follow these tips: Limit the use of the part of your body with cellulitis. If the infection is on your leg, keep your leg raised while sitting. This will help to reduce swelling. Take all of the antibiotic medicine exactly as directed until it is gone. Do not miss any doses, especially during the first 7 days. Don t stop taking the medicine when your symptoms get better. Keep the affected area clean and dry. Wash your hands with soap and warm water before and after touching your skin. Anyone else who touches your skin should also wash his or her hands. Don't share towels. Follow-up care Follow up with your healthcare provider, or as advised. If your infection does not go away on the first antibiotic, your healthcare provider will prescribe a different one. When to seek medical advice Call your healthcare provider right away if any of these occur: Red areas that spread Swelling or pain that gets worse Fluid leaking from the skin (pus) Fever higher of 100.4 F (38.0 C) or higher after 2 days on antibiotics 3030-26[address] The [employer]. [address] [place] [address]. All rights reserved. This information is not intended as a substitute for professional medical care. Always follow yourhealthcare professional's instructions. Follow Up Care 12/05/2021 04:33:20 With:HODA GRAYSON MD Address: [address] [address] [phone] When:2-4 days [facility] 08-26-2022 Note Discharge Instructions Thank you for allowing [facility] to assist you with your healthcare needs. The following is importantdischarge information regarding your hospital visit. Diagnosis from Today's Visit Cellulitis Spider bite What to Do Next Instructions from Your Care Team No qualifying data available. Post Acute Orders No qualifying data available. You Need to Schedule the Following Appointments Follow Up with HODA GRAYSON MD When Within 2-4 days Where: [address] [place] [address] [phone] Allergies penicillin Medications Please ask your primary doctor or pharmacist before taking any other medication not listed, including over the counter drugs, herbal medications, vitamins and or supplements as they may interact withyour home medications. What How Much When Why Instructions Last Dose New clindamycin (clindamycin 300 mg oral capsule) 1 cap by mouth Every 6 hours Cellulitis Duration: 7 Days Printed Prescription Unchanged amiodarone (amiodarone 200 mg oral tablet) 1 tab(s) by mouth Once a day Unchanged ascorbic acid (Vitamin C 500 mg oral tablet) 1 tab(s) by mouth Once a day Unchanged atorvastatin (atorvastatin 40 mg oral tablet) 1 tab(s) by mouth Once a day Unchanged bumetanide (bumetanide 1 mg oral tablet) 1 tab(s) by mouth Two (2) times a day Unchanged carvedilol (carvedilol 25 mg oral tablet) 1 tab(s) by mouth Two (2) times a day Unchanged cholecalciferol (Vitamin D3) 1,000 unit(s) by mouth Every day Unchanged herbal/ nutritional product 200 Milligram by mouth Every day potassium Unchanged rivaroxaban (Xarelto 15 mg oral tablet) 1 tab(s) by mouth Daily at bedtime with food with evening meal Unchanged spironolactone (spironolactone 25 mg oral tablet) 1 tab(s) by mouth Once a day with a meal Unchanged tiZANidine (tiZANidine 4 mg oral tablet) 1 tab(s) by mouth Every 8 hours as needed for as needed for muscle spasm Unchanged traMADol (traMADol 50 mg oral tablet) 1 tab(s) by mouth Every 6 hours as needed for as needed for pain Please take this list to your next doctor s visit. Bring all medications you take, including over the counter medications, herbals and other supplements with you to your doctor s visit. Patients and families are reminded to discard old lists and to update any records with all medication providers or retail pharmacies. Education Materials Cellulitis Cellulitis is an infection of the deep layers of skin. A break in the skin, such as a cut or scratch, can let bacteria under the skin. If the bacteria get to deep layers of the skin, it can be serious. If not treated, cellulitis can get into the bloodstream and lymph nodes. The infection can then spread throughout the body. This causes serious illness. Cellulitis causes the affected skin to become red, swollen, warm, and sore. The reddened areas havea visible border. An open sore may leak fluid (pus). You may have a fever, chills, and pain. Cellulitis is treated with antibiotics taken for 7 to 10 days. An open sore may be cleaned and covered with cool wet gauze. Symptoms should get better 1 to 2 days after treatment is started. Make sure to take all the antibiotics for the full number of days until they are gone. Keep taking the medicine even if your symptoms go away. Home care Follow these tips: Limit the use of the part of your body with cellulitis. If the infection is on your leg, keep your leg raised while sitting. This will help to reduce swelling. Take all of the antibiotic medicine exactly as directed until it is gone. Do not miss any doses, especially during the first 7 days. Don t stop taking the medicine when your symptoms get better. Keep the affected area clean and dry. Wash your hands with soap and warm water before and after touching your skin. Anyone else who touches your skin should also wash his or her hands. Don't share towels. Follow-up care Follow up with your healthcare provider, or as advised. If your infection does not go away on the first antibiotic, your healthcare provider will prescribe a different one. When to seek medical advice Call your healthcare provider right away if any of these occur: Red areas that spread Swelling or pain that gets worse Fluid leaking from the skin (pus) Fever higher of 100.4 F (38.0 C) or higher after 2 days on antibiotics 1329-5192 [employer]. [address] [place] [address]. All rights reserved. This information is not intended as a substitute for professional medical care. Always follow yourhealthcare professional's instructions. Additional Information VACCINATE! IT SAVES LIVES! Members of the community who have not yet received the COVID-19 vaccine and would like to receive it can visit one of [facility] vaccine clinics. There are many vaccine clinic locations within the [facility]. For locations and available times, please visit [email or web address]. It is important to note that some COVID mobile vaccine clinics are held outdoors and may be canceled in rainy orstormy conditions. To learn more about pediatric vaccinations (ages 5-11), we invite you to visit the [facility] webpage. [email or web address] learn more about the COVID-19 vaccine, we invite you to visit the [facility] website for a list of frequently asked questions. [email or web address] [facility] Patient Portal Access Instructions: Stay connected with your healthcare team and access your personal medical information anytime with the [facility] Patient Portal. If you would like a full copy of your medical records please contact the [facility] Medical Records Department Wednesday through Wednesday between 8a.m. and 4:30p.m. Please follow the directions below to access the portal: 1.Access the email account you provided upon registration to the [facility].2.Look for an invitation email from [facility].3.Open the email and access the invitation link: Accept Invitation to [facility]4.Fill in the required crockett to create your account. Sign into www.[employer] with your username and password that you created in the above steps to stay up to date. You can then view a summary of results, a summary of your visits, and the ability to download your summaries to your computer or send the information securely to a physician. Remember that your healthcare information is confidential, so carefully consider who you will allow to register on the [facility] Patient Portal for access to your information. You can also access the [facility] Patient Portal on the [employer] karie. Simply click on Health Records under [employer] and then click on the [facility] logo. HOW TO SAFELY DISPOSE OF PRESCRIPTION MEDICATIONS Please use one of the following methods to safely dispose of your unused medications. 1.Use a drug disposal kit: the drug disposal pouch allows you to safely discard your old and unuseddrugs. Ask your nurse to give you one when you are discharged.2.Visit a local take-back location: Many local pharmacies and police departments have programs that collect old and unwanted prescriptiondrugs. Call your local pharmacy or go to http://Mapflow.Meddik/8F5It5s to find one close to you.3.Make use of household items: Use cat litter or old coffee grounds to dispose medications if other options arenot available. Mix your drugs with these household products, seal them in an airtight container andthrow it into the garbage. Call [facility]: [phone] to be sure your drugs can be disposed of in this way. Some medicines may require a different approach.4.Never flush your medications down the toilet. IF YOU HAVE BEEN PRESCRIBED AN OPIOIDS FOR PAIN If you have been prescribed an opioid (such as hydrocodone, oxycodone or morphine), it is critical to understand the possible side effects and risks of opioid pain medications. Even when taken as directed, opioids can have several side effects including: Tolerance, meaning you might need to take more of a medication for the same pain relief. Nausea, vomiting and/or constipation. Sleepiness, dizziness, dry mouth, confusion, depression or itching. Physical dependence, meaning you have withdrawal symptoms when a medication is stopped ? this can develop within a few days. KNOW YOUR RESPONSIBILITIES It is important to know exactly how much and how often to take the opioid pain medications you are prescribed. Never take opioids in higher amounts or more often than prescribed. Do not combine opioids with alcohol or other drugs that cause drowsiness, such as benzodiazepines, also known as benzos,including diazepam and alprazolam, muscle relaxants or sleep aids. Never sell or share prescriptionopioids. This is illegal. Store opioids in a secure place and out of reach of others (including children, family, friends and visitors). The last page(s) of this document has been signed and retained as a CHART COPY Signatures Patient Education Materials Cellulitis Skin Infection Medication Leaflets My discharge plan and instructions have been reviewed and explained to me and I,JACKY ELLIS understand my current condition and have read and understand these discharge instructions. I have received a written copy of the plan/instructions. If I have questions, I am aware that I should contact my doctor. 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: Date/Time: Relationship to Patient: Witness Name/Signature: Date/Time: [facility]08-23-2022 NoteHNO ID: [id number] Author: Christina Villafuerte APRN.PAINT MIXER MACHINE Service: ? Author Type: Nurse Practitioner Type: Progress Notes Filed: 12/23/2021 9:42 AM Note Text: Summary: PREANESTHESIA NOTE Left reverse total shoulder w/ David 12/24/21 71 yo [place] nonsmoker male with HX: CHF, AFIB (xarelto, coreg, amio), thoracic aortic aneurysm S/P repair of a chronic type a aortic dissection with 34 mm Hemashield graft (11/15/2020), CABG (X3, Starla, 11/2020), HTN, scoliosis w/ chronic back pain, CVA (11/2020, no residual), CKD (stage 2), DM2 (new diagnosis 12/2020-A1C 6.9, no meds). RN requested records. Kenia PRATT 72 hours preop and ok w/ Dr. Kowalski. Per note 07/01/21 (Dr. 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 I have a better grasp of his past hx after speaking with him and receive Dex's OV notes. In 2019, evaluated for CP with development of AF RVR- I do not see that he received any intervention during the [facility] in 2019 per Dex's notes but we are awaiting the official report. In 11/2020, he was found down at home by a friend. His friend called 911 and initiated CPR. Taken to [place] for intervention where he underwent the repair of the aortic dissection, AVR with aortoplasty. He suffered intraoperative CVA from showering emboli (romel frontoparietal foci of acute ischemia). He spent 28days in ICU and d/c to a NH for 29days. ECHO 11/21/20 EF 45-50, mild diffuse hypokinesis, +DD, mild , mild AR, MAC with 1-2 MR, RVSP 54. Looks like patient has gone back and forth with Dex regarding different medications for management of his AF with having DCCV 2x (last 06/16/21). Dex notes that patient had mod fluid overload 09/2021- started spirolactone. Unfortunately, Jacky took himself off his 81mg ASA and started taking ASA 500mg q4hr PRN for pain- states PCP Kenan was aware and told him to be careful. He was advised today to stop the 500mg ASA and call Dex or Kenan regarding resuming 81mg ASA. I advised him to contact David and Dex about a stop date of ASA if Dex feels he can. Denies any active bleeding, no dark stools, no bruising noted on exam. 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 He denies being diabetic- states this was a mistake the group home made. 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 He has received stem cell injections to his back and no longer has back pain. He has intentionally lost 40lbs since last summer; uses 5lb weights for bicep curls and a weighted leg machine at [facility]. Lives alone and manages his home, drives. BP R 140/78, L 142/84, HR 67 (NSR), RR 18, 97% RA. Appears euvolemic. He did request a WC to take him back down to the lobby. He is seeing Dex next week in his office. I did request d/c summary from Starla. I don't see any mention of CABG x3 that is listed in his hx and Dex does not mention it either. Labs returned today: A POS, Cre 1.64 (last documentation I see Cre 1.56 11/2020), K 4.4, A1C 6.1, PTT 36, PT 13.3, INR 1.2, HANDH 11.5/36.5, plt 166. He does have a hx of anemia and baseline is around 11.4. I am sending FYI over to Dex Grayson, and David regarding the ASA issue and labs. 12/03/21 KARLA Villafuerte: Received d/c summary from 11/2020- Hosp from 11/15-12/04, d/c on O2 2L NC to SNF. He had a known thoracic aneurysm that he had prev refused surgery. Neighbor found him face down after not seeing him for several days. Hx of chronically occ LAD. He had an intraop thrombus with AA and MICHAEL, extubated POD1. Complicated by asp PNA (thought to have occurred prior to admission). I still didn't gather he's had a previous revascularization in 2019- I requested those d/c notes and OR report from 2019. 12/23/21 KARLA Villafuerte: He was never revascularized- In 2019 was hospitalized for CP with [facility] showing CTA RCA with small jump collaterals to mid RCA, coronary fistula of prox LAD to main PA; Dx with ACS/NSTEMI. They did stress him during this time- EF 26%, rev defect in IFW/IFLW/LW/ALW sugg ischemia- however cardiology felt it was 2/2 gut artifact. We did receive medical clearance from Kenan stating he is cleared for procedure ONLY if cleared by cardiology. There is a note at the bottom of the clearance form stating that cardiology sent in clearance on 12/22- have not received as of yet.[facility]08-23-2022 NoteHNO ID: [id number] Author: Christina Villafuerte APRN.KARLA Service: ? Author Type: Nurse Practitioner Type: Progress Notes Filed: 12/02/2021 1:06 PM Note Text: Summary: dos meds Day of Surgery Medication Instructions: Current Outpatient Medications Medication Sig Dispense Refill Aspirin 500 mg tab Take 500 mg by mouth every 4 hours as needed. Will stop today takes for pain acetaminophen (TYLENOL EXTRA STRENGTH) 500 mg tablet Take 500 mg by mouth every 8 hours as needed for pain. tiZANidine (ZANAFLEX) 4 mg tablet Take 4 mg by mouth at bedtime as needed. carvedilol (COREG) 25 mg tablet Take 25 mg by mouth twice daily with meals. rivaroxaban (XARELTO) 15 mg tablet Take 15 mg by mouth daily with dinner. LAST DOSE 72 HOU[address] PRE OP PER DR DEX ALLRED AWARE AND OKAY WITH amiodarone (PACERONE) 200 mg tablet Take 200 mg by mouth once daily. AM PER DR KOWALSKI, HX AFIB spironolactone (ALDACTONE) 25 mg tablet Take 25 mg by mouth once daily. AM, EVERY OTHER DAY amLODIPine (NORVASC) 5 mg tablet Take 5 mg by mouth once daily. AM No current facility-administered medications for this visit. Take all routine morning medications except for spironolactone. You should have stopped Xarelto 3 days before surgery per Dr Kowalski. Stop your aspirin as directed by surgeon and prescriber.[facility] 12-02-2021 History of Present illness Narrative* Christina Villafuerte APRN.KARLA - 12/02/2021 11:00 AM EDTSummary: PREANESTHESIA NOTE Left reverse total shoulder w/ David 12/24/21 71 yo [place] nonsmoker male with HX: CHF, AFIB (xarelto, coreg, amio), thoracic aortic aneurysm S/P repair of a chronic type a aortic dissection with 34 mm Hemashield graft (11/15/2020), CABG (X3, Starla,11/2020), HTN, scoliosis w/ chronic back pain, CVA (11/2020, no residual), CKD (stage 2), DM2 (new diagnosis 12/2020-A1C 6.9, no meds). RN requested records. Kenia LD 72 hours preop and ok w/ Dr. Kowalski. Per note 07/01/21 (Dr. 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 I have a better grasp of his past hx after speaking with him and receive Dex's OV notes. In 2019, evaluated for CP with development of AF RVR- I do not see that he received any intervention during the [facility] in 2019 per Dex's notes but we are awaiting the official report. In 11/2020, he was found down at home by a friend. His friend called 911 and initiated CPR. Taken [place] for intervention where he underwent the repair of the aortic dissection, AVR with aortoplasty. He suffered intraoperative CVA from showering emboli (romel frontoparietal foci of acute ischemia). He spent 28days in ICU and d/c to a NH for 29days. ECHO 11/21/20 EF 45-50, mild diffuse hypokinesis, +DD, mild , mild AR, MAC with 1-2 MR, RVSP 54. Looks like patient has gone back and forth with Dex regarding different medications for managementof his AF with having DCCV 2x (last 06/16/21). Dex notes that patient had mod fluid overload 09/2021-started spirolactone. Unfortunately, Jacky took himself off his 81mg ASA and started taking ASA 500mg q4hr PRN for pain- states PCP Kenan was aware and told him to be careful. He was advised today to stop the 500mg ASAand call Dex or Kenan regarding resuming 81mg ASA. I advised him to contact David and Dex about a stop date of ASA if Dex feels he can. Denies any active bleeding, no dark stools, no bruising noted on exam. 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 He denies being diabetic- states this was a mistake the group home made. 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 He has received stem cell injections to his back and no longer has back pain. He has intentionally lost 40lbs since last summer; uses 5lb weights for bicep curls and a weighted leg machine at [facility]. Lives alone and manages his home, drives. BP R 140/78, L 142/84, HR 67 (NSR), RR 18, 97% RA. Appears euvolemic. He did request a WC to take himback down to the lobby. He is seeing Dex next week in his office. I did request d/c summary from Starla. I don't see any mention of CABG x3 that is listed in his hxand Dex does not mention it either. Labs returned today: A POS, Cre 1.64 (last documentation I see Cre 1.56 11/2020), K 4.4, A1C 6.1, PTT 36, PT 13.3, INR 1.2, H&H 11.5/36.5, plt 166. He does have a hx of anemia and baseline is around 11.4. I am sending FYI over to Dex Grayson, and David regarding the ASA issue and labs. * Christina Villafuerte APRN.CNP - 12/02/2021 11:00 AM EDTSummary: dos meds Day of Surgery Medication Instructions: Current Outpatient Medications Medication Sig Dispense Refill Aspirin 500 mg tab Take 500 mg by mouth every 4 hours as needed. Will stop today takes for pain acetaminophen (TYLENOL EXTRA STRENGTH) 500 mg tablet Take 500 mg by mouth every 8 hours as needed for pain. tiZANidine (ZANAFLEX) 4 mg tablet Take 4 mg by mouth at bedtime as needed. carvedilol (COREG) 25 mg tablet Take 25 mg by mouth twice daily with meals. rivaroxaban (XARELTO) 15 mg tablet Take 15 mg by mouth daily with dinner. LAST DOSE [address] HENRY, DR KOWALSKI AWARE AND OKAY WITH amiodarone (PACERONE) 200 mg tablet Take 200 mg by mouth once daily. AM PER DR KOWALSKI, HX AFIB spironolactone (ALDACTONE) 25 mg tablet Take 25 mg by mouth once daily. AM, EVERY OTHER DAY amLODIPine (NORVASC) 5 mg tablet Take 5 mg by mouth once daily. AM No current facility-administered medications for this visit. Take all routine morning medications except for spironolactone. You should have stopped Xarelto 3 days before surgery per Dr Kowalski. Stop your aspirin as directed by surgeon and prescriber. [facility] + Plan note Future Scheduled Tests Laboratory* Basic Metabolic Panel 09/25/21 * Basic Metabolic Panel 10/23/21 * Basic Metabolic Panel 11/20/21 * Basic Metabolic Panel 12/18/21 * Basic Metabolic Panel 07/20/22 * Basic Metabolic Panel 06/30/21 * Basic Metabolic Panel 07/07/21 * Basic Metabolic Panel 07/14/21 * Basic Metabolic Panel 07/21/21 * Thyroid Stimulating Hormone 09/19/22 * Thyroid Stimulating Hormone 03/18/22 * Complete Blood Count 07/20/22 * Complete Blood Count 09/19/22 * Complete Blood Count 03/18/22 * Complete Metabolic Panel 09/19/22 * Complete Metabolic Panel 03/18/22 * N-Terminal proBNP 09/25/21 * N-Terminal proBNP 10/23/21 * N-Terminal proBNP 11/20/21 * N-Terminal proBNP 12/18/21 * N-Terminal proBNP 07/20/22 * N-Terminal proBNP 09/19/22 * N-Terminal proBNP 06/30/21 * N-Terminal proBNP 07/07/21 * N-Terminal proBNP 07/14/21 * N-Terminal proBNP 07/21/21 * N-Terminal proBNP 03/18/22 Radiology* CT Angiography Chest w/ Contrast 06/19/23 * XR Chest 2 Views (PA & Lateral) 12/26/21 [facility] 06-16-2022 Evaluation + Plan note Future Scheduled Tests Laboratory* Basic Metabolic Panel 09/25/21 * Basic Metabolic Panel 10/23/21 * Basic Metabolic Panel 11/20/21 * Basic Metabolic Panel 12/18/21 * Basic Metabolic Panel 07/20/22 * Basic Metabolic Panel 07/14/21 * Basic Metabolic Panel 07/21/21 * Thyroid Stimulating Hormone 09/19/22 * Thyroid Stimulating Hormone 03/18/22 * Complete Blood Count 07/20/22 * Complete Blood Count 09/19/22 * Complete Blood Count 03/18/22 * Complete Metabolic Panel 09/19/22 * Complete Metabolic Panel 03/18/22 * N-Terminal proBNP 09/25/21 * N-Terminal proBNP 10/23/21 * N-Terminal proBNP 11/20/21 * N-Terminal proBNP 12/18/21 * N-Terminal proBNP 07/20/22 * N-Terminal proBNP 09/19/22 * N-Terminal proBNP 07/14/21 * N-Terminal proBNP 07/21/21 * N-Terminal proBNP 03/18/22 Radiology* CT Angiography Chest w/ Contrast 06/19/23 * XR Chest 2 Views (PA & Lateral) 12/26/21 [facility] 06-16-2022 Evaluation + Plan note Future Scheduled Tests Laboratory* Basic Metabolic Panel 09/25/21 * Basic Metabolic Panel 10/23/21 * Basic Metabolic Panel 11/20/21 * Basic Metabolic Panel 12/18/21 * Basic Metabolic Panel 07/20/22 * Basic Metabolic Panel 07/21/21 * Thyroid Stimulating Hormone 09/19/22 * Complete Blood Count 09/19/22 * Complete Blood Count 03/18/22 * Complete Metabolic Panel 09/19/22 * N-Terminal proBNP 09/25/21 * N-Terminal proBNP 10/23/21 * N-Terminal proBNP 11/20/21 * N-Terminal proBNP 12/18/21 * N-Terminal proBNP 09/19/22 * N-Terminal proBNP 07/21/21 * N-Terminal proBNP 03/18/22 Radiology* CT Angiography Chest w/ Contrast 06/19/23 * XR Chest 2 Views (PA & Lateral) 12/26/21 [facility] 03-16-2022 Evaluation + Plan note Future Scheduled Tests Laboratory* Basic Metabolic Panel 06/25/21 * Basic Metabolic Panel 09/25/21 * Basic Metabolic Panel 10/23/21 * Basic Metabolic Panel 11/20/21 * Basic Metabolic Panel 12/18/21 * Basic Metabolic Panel 06/23/21 * Basic Metabolic Panel 06/30/21 * Basic Metabolic Panel 07/07/21 * Basic Metabolic Panel 07/14/21 * Basic Metabolic Panel 07/21/21 * Thyroid Stimulating Hormone 03/18/22 * Complete Blood Count 03/18/22 * Complete Metabolic Panel 03/18/22 * N-Terminal proBNP 06/25/21 * N-Terminal proBNP 09/25/21 * N-Terminal proBNP 10/23/21 * N-Terminal proBNP 11/20/21 * N-Terminal proBNP 12/18/21 * N-Terminal proBNP 06/23/21 * N-Terminal proBNP 06/30/21 * N-Terminal proBNP 07/07/21 * N-Terminal proBNP 07/14/21 * N-Terminal proBNP 07/21/21 * N-Terminal proBNP 03/18/22 Radiology* CT Angiography Chest w/ Contrast 06/19/23 * XR Chest 2 Views (PA & Lateral) 12/26/21 [facility] 03-07-2022 Hospital Discharge instructions Patient Education 06/16/2021 08:58:33 3- Cardioversion (01/2018) (CUSTOM) CARDIOVERSION Discharge instructions ACTIVITY/SAFETY Please refrain from the following activities for 24 hours: Do not drive a car or operate heavy equipment. Do not consume alcohol for 24 hours. Do not return to work for 24 hours. Postpone signing any important papers or making important decisions. COMFORT Call your primary doctor if you have any redness, tenderness, warmth, discharge or swelling at yourIV site. Your chest or back may get red and/or develop a burning sensation. Apply fragrance-free Aloe Vera lotion. Take Tylenol as needed for pain. DIET When you return home, resume your regular diet unless otherwise directed. Some of the sedatives, anesthetic medications you received today may make you nauseated. If vomiting persists, call your doctor. Restart your usual medications unless otherwise instructed by your doctor. If you have any questions, please call your doctor at the number listed on your follow up instructions. Document Released: 03/29/2006 Document Revised: 03/15/2013 Document Reviewed: 03/30/2014 [facility] Patient Information 2015 [employer]. This information is not intended to replace advicegiven to you by your health care provider. Make sure you discuss any questions you have with your health care provider. Follow Up Care 06/10/2021 13:11:09 With:XU KOWALSKI MD Address: [address] [place] [address] [address] [place] [address]- [phone] When:07/14/2021 09:30:00 Comments:THIS APPOINTMENT WILL BE WITH SINDHU BUTLER CNP - THE APPOINTMENT SCHEDULED FOR 06/27 HAS BEEN CANCELLED. [facility] 01-19-2022 Evaluation + Plan note Future Scheduled Tests Laboratory* Basic Metabolic Panel 04/30/21 * Basic Metabolic Panel 06/25/21 * Basic Metabolic Panel 09/25/21 * Basic Metabolic Panel 10/23/21 * Basic Metabolic Panel 11/20/21 * Basic Metabolic Panel 12/18/21 * Basic Metabolic Panel 06/23/21 * Basic Metabolic Panel 06/30/21 * Basic Metabolic Panel 07/07/21 * Basic Metabolic Panel 07/14/21 * Basic Metabolic Panel 07/21/21 * Thyroid Stimulating Hormone 03/18/22 * Complete Blood Count 03/18/22 * Complete Metabolic Panel 03/18/22 * N-Terminal proBNP 04/30/21 * N-Terminal proBNP 06/25/21 * N-Terminal proBNP 09/25/21 * N-Terminal proBNP 10/23/21 * N-Terminal proBNP 11/20/21 * N-Terminal proBNP 12/18/21 * N-Terminal proBNP 06/23/21 * N-Terminal proBNP 06/30/21 * N-Terminal proBNP 07/07/21 * N-Terminal proBNP 07/14/21 * N-Terminal proBNP 07/21/21 * N-Terminal proBNP 03/18/22 Radiology* CT Angiography Chest w/ Contrast 06/19/23 * XR Chest 2 Views (PA & Lateral) 12/26/21 [facility] Evaluation + Plan note Future Appointments Appointment Date:05/28/2021 10:00:00 AM Scheduled Provider: Location:[facility] Appointment Type:CT Angiography Chest w/ Contrast Appointment Date:06/04/2021 02:00:00 PM Scheduled Provider:UMBERTO JOHNSON MD Location:[facility] Appointment Type:CTS OV Appointment Date:06/27/2021 10:00:00 AM Scheduled Provider: Location:[facility] Appointment Type:CV OV Future Scheduled Tests Laboratory* Basic Metabolic Panel 04/02/21 * Basic Metabolic Panel 04/30/21 * Basic Metabolic Panel 06/25/21 * Thyroid Stimulating Hormone 03/15/21 * Thyroid Stimulating Hormone 01/06/21 * N-Terminal proBNP 03/15/21 * N-Terminal proBNP 04/02/21 * N-Terminal proBNP 04/30/21 * N-Terminal proBNP 06/25/21 * A1C Hemoglobin 03/15/21 * Complete Blood Count 03/15/21 * Complete Blood Count 01/06/21 * Lipid Profile 03/15/21 * Complete Metabolic Panel 03/15/21 * Complete Metabolic Panel 01/06/21 Radiology* CT Angiography Chest w/ Contrast 05/28/21 [facility] Evaluation + Plan note Future Appointments Appointment Date:06/18/2021 03:00:00 PM Scheduled Provider:UMBERTO JOHNSON MD Location:[facility] Appointment Type:CTS OV Appointment Date:06/27/2021 10:00:00 AM Scheduled Provider: Location:[facility] Appointment Type:CV OV Future Scheduled Tests Laboratory* Basic Metabolic Panel 04/02/21 * Basic Metabolic Panel 04/30/21 * Basic Metabolic Panel 06/25/21 * Thyroid Stimulating Hormone 03/15/21 * Thyroid Stimulating Hormone 01/06/21 * N-Terminal proBNP 03/15/21 * N-Terminal proBNP 04/02/21 * N-Terminal proBNP 04/30/21 * N-Terminal proBNP 06/25/21 * A1C Hemoglobin 03/15/21 * Complete Blood Count 03/15/21 * Complete Blood Count 01/06/21 * Lipid Profile 03/15/21 * Complete Metabolic Panel 03/15/21 * Complete Metabolic Panel 01/06/21 [facility] Evaluation + Plan note Future Appointments Appointment Date:06/18/2021 03:00:00 PM Scheduled Provider:UMBERTO JOHNSON MD Location:[facility] Appointment Type:CTS OV Appointment Date:07/14/2021 09:30:00 AM Scheduled Provider:DAILY BUTLER Location:[facility] Appointment Type:CV OV Appointment Date:07/21/2021 02:30:00 PM Scheduled Provider: Location:[facility] Appointment Type:PT Outpatient Evaluation Diagnostic Tests Pending * N-Terminal proBNP 06/16/21 Future Scheduled Tests Laboratory* Basic Metabolic Panel 04/02/21 * Basic Metabolic Panel 04/30/21 * Basic Metabolic Panel 06/25/21 * Basic Metabolic Panel 06/23/21 * Basic Metabolic Panel 06/30/21 * Basic Metabolic Panel 07/07/21 * Basic Metabolic Panel 07/14/21 * Basic Metabolic Panel 07/21/21 * Thyroid Stimulating Hormone 03/15/21 * Thyroid Stimulating Hormone 01/06/21 * N-Terminal proBNP 03/15/21 * N-Terminal proBNP 04/02/21 * N-Terminal proBNP 04/30/21 * N-Terminal proBNP 06/25/21 * N-Terminal proBNP 06/23/21 * N-Terminal proBNP 06/30/21 * N-Terminal proBNP 07/07/21 * N-Terminal proBNP 07/14/21 * N-Terminal proBNP 07/21/21 * A1C Hemoglobin 03/15/21 * Complete Blood Count 03/15/21 * Complete Blood Count 01/06/21 * Lipid Profile 03/15/21 * Complete Metabolic Panel 03/15/21 * Complete Metabolic Panel 01/06/21 [facility] Evaluation + Plan note Future Appointments Appointment Date:07/14/2021 09:30:00 AM Scheduled Provider:DAILY BUTLER Location:[facility] Appointment Type:CV OV Appointment Date:07/21/2021 02:30:00 PM Scheduled Provider: Location:[facility] Appointment Type:PT Outpatient Evaluation Future Scheduled Tests Laboratory* Basic Metabolic Panel 04/02/21 * Basic Metabolic Panel 04/30/21 * Basic Metabolic Panel 06/25/21 * Basic Metabolic Panel 06/23/21 * Basic Metabolic Panel 06/30/21 * Basic Metabolic Panel 07/07/21 * Basic Metabolic Panel 07/14/21 * Basic Metabolic Panel 07/21/21 * Thyroid Stimulating Hormone 03/15/21 * Thyroid Stimulating Hormone 01/06/21 * N-Terminal proBNP 03/15/21 * N-Terminal proBNP 04/02/21 * N-Terminal proBNP 04/30/21 * N-Terminal proBNP 06/25/21 * N-Terminal proBNP 06/23/21 * N-Terminal proBNP 06/30/21 * N-Terminal proBNP 07/07/21 * N-Terminal proBNP 07/14/21 * N-Terminal proBNP 07/21/21 * A1C Hemoglobin 03/15/21 * Complete Blood Count 03/15/21 * Complete Blood Count 01/06/21 * Lipid Profile 03/15/21 * Complete Metabolic Panel 03/15/21 * Complete Metabolic Panel 01/06/21 Radiology* CT Angiography Chest w/ Contrast 06/19/23 [facility] Evaluation + Plan note Future Appointments Appointment Date:12/17/2021 09:15:00 AM Scheduled Provider: Location:[facility] Appointment Type:CV OV Future Scheduled Tests Laboratory* Basic Metabolic Panel 04/02/21 * Basic Metabolic Panel 04/30/21 * Basic Metabolic Panel 06/25/21 * Basic Metabolic Panel 09/25/21 * Basic Metabolic Panel 10/23/21 * Basic Metabolic Panel 11/20/21 * Basic Metabolic Panel 12/18/21 * Basic Metabolic Panel 06/23/21 * Basic Metabolic Panel 06/30/21 * Basic Metabolic Panel 07/07/21 * Basic Metabolic Panel 07/14/21 * Basic Metabolic Panel 07/21/21 * Thyroid Stimulating Hormone 12/26/21 * Thyroid Stimulating Hormone 01/06/21 * Thyroid Stimulating Hormone 03/15/21 * A1C Hemoglobin 03/15/21 * Complete Blood Count 01/06/21 * Complete Blood Count 03/15/21 * Lipid Profile 03/15/21 * Complete Metabolic Panel 12/26/21 * Complete Metabolic Panel 01/06/21 * Complete Metabolic Panel 03/15/21 * N-Terminal proBNP 04/02/21 * N-Terminal proBNP 04/30/21 * N-Terminal proBNP 06/25/21 * N-Terminal proBNP 09/25/21 * N-Terminal proBNP 10/23/21 * N-Terminal proBNP 11/20/21 * N-Terminal proBNP 12/18/21 * N-Terminal proBNP 12/26/21 * N-Terminal proBNP 06/23/21 * N-Terminal proBNP 06/30/21 * N-Terminal proBNP 07/07/21 * N-Terminal proBNP 07/14/21 * N-Terminal proBNP 07/21/21 * N-Terminal proBNP 03/15/21 Radiology* CT Angiography Chest w/ Contrast 06/19/23 * XR Chest 2 Views (PA & Lateral) 12/26/21 [facility] Evaluation + Plan note Future Appointments Appointment Date:12/17/2021 09:15:00 AM Scheduled Provider: Location:[facility] Appointment Type:CV OV Appointment Date:01/06/2022 10:30:00 AM Scheduled Provider: Location:[facility] Appointment Type:PF PFT Future Scheduled Tests Laboratory* Basic Metabolic Panel 04/02/21 * Basic Metabolic Panel 04/30/21 * Basic Metabolic Panel 06/25/21 * Basic Metabolic Panel 09/25/21 * Basic Metabolic Panel 10/23/21 * Basic Metabolic Panel 11/20/21 * Basic Metabolic Panel 12/18/21 * Basic Metabolic Panel 06/23/21 * Basic Metabolic Panel 06/30/21 * Basic Metabolic Panel 07/07/21 * Basic Metabolic Panel 07/14/21 * Basic Metabolic Panel 07/21/21 * Thyroid Stimulating Hormone 01/06/21 * Thyroid Stimulating Hormone 03/15/21 * A1C Hemoglobin 03/15/21 * Complete Blood Count 01/06/21 * Complete Blood Count 03/15/21 * Lipid Profile 03/15/21 * Complete Metabolic Panel 01/06/21 * Complete Metabolic Panel 03/15/21 * N-Terminal proBNP 04/02/21 * N-Terminal proBNP 04/30/21 * N-Terminal proBNP 06/25/21 * N-Terminal proBNP 09/25/21 * N-Terminal proBNP 10/23/21 * N-Terminal proBNP 11/20/21 * N-Terminal proBNP 12/18/21 * N-Terminal proBNP 06/23/21 * N-Terminal proBNP 06/30/21 * N-Terminal proBNP 07/07/21 * N-Terminal proBNP 07/14/21 * N-Terminal proBNP 07/21/21 * N-Terminal proBNP 03/15/21 Radiology* CT Angiography Chest w/ Contrast 06/19/23 * XR Chest 2 Views (PA & Lateral) 12/26/21 [facility] Evaluation + Plan note Future Appointments Appointment Date:06/19/2022 09:15:00 AM Scheduled Provider: Location:[facility] Appointment Type:CV OV Future Scheduled Tests Laboratory* Basic Metabolic Panel 06/25/21 * Basic Metabolic Panel 09/25/21 * Basic Metabolic Panel 10/23/21 * Basic Metabolic Panel 11/20/21 * Basic Metabolic Panel 12/18/21 * Basic Metabolic Panel 06/23/21 * Basic Metabolic Panel 06/30/21 * Basic Metabolic Panel 07/07/21 * Basic Metabolic Panel 07/14/21 * Basic Metabolic Panel 07/21/21 * Thyroid Stimulating Hormone 03/18/22 * Complete Blood Count 03/18/22 * Complete Metabolic Panel 03/18/22 * N-Terminal proBNP 06/25/21 * N-Terminal proBNP 09/25/21 * N-Terminal proBNP 10/23/21 * N-Terminal proBNP 11/20/21 * N-Terminal proBNP 12/18/21 * N-Terminal proBNP 06/23/21 * N-Terminal proBNP 06/30/21 * N-Terminal proBNP 07/07/21 * N-Terminal proBNP 07/14/21 * N-Terminal proBNP 07/21/21 * N-Terminal proBNP 03/18/22 Radiology* CT Angiography Chest w/ Contrast 06/19/23 * XR Chest 2 Views (PA & Lateral) 12/26/21 [facility] Evaluation + Plan note Future Appointments Appointment Date:09/30/2022 01:30:00 PM Scheduled Provider: Location:[facility] Appointment Type:PT Treatment - [place] Appointment Date:10/02/2022 02:00:00 PM Scheduled Provider: Location:[facility] Appointment Type:PT Treatment - [place] Appointment Date:10/05/2022 01:30:00 PM Scheduled Provider: Location:[facility] Appointment Type:PT Treatment - [place] Appointment Date:10/08/2022 01:30:00 PM Scheduled Provider: Location:[facility]:10/16/2022 09:15:00 AM Scheduled Provider: Location:[facility] Appointment Type:CV OV Appointment Date:11/02/2022 11:30:00 AM Scheduled Provider:DELMAR MORENO MD Location:[facility] PM Appointment Type:PM OV Future Scheduled Tests Laboratory* Basic Metabolic Panel 10/23/21 * Basic Metabolic Panel 11/20/21 * Basic Metabolic Panel 12/18/21 * Basic Metabolic Panel 07/20/22 * Thyroid Stimulating Hormone 09/19/22 * Complete Blood Count 09/19/22 * Complete Blood Count 03/18/22 * Complete Metabolic Panel 09/19/22 * N-Terminal proBNP 10/23/21 * N-Terminal proBNP 11/20/21 * N-Terminal proBNP 12/18/21 * N-Terminal proBNP 09/19/22 * N-Terminal proBNP 03/18/22 Radiology* CT Angiography Chest w/ Contrast 06/19/23 * XR Chest 2 Views (PA & Lateral) 12/26/21 [facility] Evaluation + Plan note Future Appointments Appointment Date:11/02/2022 11:30:00 AM Scheduled Provider:DELMAR MORENO MD Location:[facility] PM Appointment Type:PM OV Future Scheduled Tests Laboratory* Basic Metabolic Panel 10/23/21 * Basic Metabolic Panel 11/20/21 * Basic Metabolic Panel 12/18/21 * Basic Metabolic Panel 07/20/22 * Thyroid Stimulating Hormone 01/16/23 * Thyroid Stimulating Hormone 09/19/22 * Complete Blood Count 01/16/23 * Complete Blood Count 09/19/22 * Complete Blood Count 03/18/22 * Lipid Profile 01/16/23 * Complete Metabolic Panel 01/16/23 * Complete Metabolic Panel 09/19/22 * N-Terminal proBNP 10/23/21 * N-Terminal proBNP 11/20/21 * N-Terminal proBNP 12/18/21 * N-Terminal proBNP 01/16/23 * N-Terminal proBNP 09/19/22 * N-Terminal proBNP 03/18/22 Radiology* CT Angiography Chest w/ Contrast 06/19/23 * XR Chest 2 Views (PA & Lateral) 12/26/21 * XR Chest 2 Views (PA & Lateral) 10/16/22 [facility] Evaluation + Plan note Future Appointments Appointment Date:12/16/2022 09:30:00 AM Scheduled Provider:TYLER ROJAS Location:[facility] Appointment Type:PM OV Future Scheduled Tests Laboratory* Basic Metabolic Panel 11/20/21 * Basic Metabolic Panel 12/18/21 * Basic Metabolic Panel 07/20/22 * Thyroid Stimulating Hormone 01/16/23 * Thyroid Stimulating Hormone 09/19/22 * Complete Blood Count 01/16/23 * Complete Blood Count 09/19/22 * Complete Blood Count 03/18/22 * Lipid Profile 01/16/23 * Complete Metabolic Panel 01/16/23 * Complete Metabolic Panel 09/19/22 * N-Terminal proBNP 11/20/21 * N-Terminal proBNP 12/18/21 * N-Terminal proBNP 01/16/23 * N-Terminal proBNP 09/19/22 * N-Terminal proBNP 03/18/22 Radiology* CT Angiography Chest w/ Contrast 06/19/23 * XR Chest 2 Views (PA & Lateral) 12/26/21 * XR Chest 2 Views (PA & Lateral) 10/16/22 [facility] Evaluation + Plan note Future Appointments Appointment Date:11/30/2022 07:30:00 AM Scheduled Provider: Location:[facility] Main OR Appointment Type:PM Spinal Cord Stimulator Implant ([facility]) Appointment Date:12/16/2022 09:30:00 AM Scheduled Provider:TYLER ROJAS Location:[facility] PM Appointment Type:PM OV Future Scheduled Tests Laboratory* Basic Metabolic Panel 12/18/21 * Basic Metabolic Panel 07/20/22 * Thyroid Stimulating Hormone 01/16/23 * Thyroid Stimulating Hormone 09/19/22 * Complete Blood Count 01/16/23 * Complete Blood Count 09/19/22 * Complete Blood Count 03/18/22 * Lipid Profile 01/16/23 * Complete Metabolic Panel 01/16/23 * Complete Metabolic Panel 09/19/22 * N-Terminal proBNP 12/18/21 * N-Terminal proBNP 01/16/23 * N-Terminal proBNP 09/19/22 * N-Terminal proBNP 03/18/22 Radiology* CT Angiography Chest w/ Contrast 06/19/23 * XR Chest 2 Views (PA & Lateral) 12/26/21 * XR Chest 2 Views (PA & Lateral) 10/16/22 [facility] Evaluation + Plan note Future Appointments Appointment Date:12/16/2022 09:30:00 AM Scheduled Provider:TYLER ROJAS Location:[facility] PM Appointment Type:PM OV Future Scheduled Tests Laboratory* Basic Metabolic Panel 12/18/21 * Basic Metabolic Panel 07/20/22 * Thyroid Stimulating Hormone 01/16/23 * Thyroid Stimulating Hormone 09/19/22 * Complete Blood Count 01/16/23 * Complete Blood Count 09/19/22 * Complete Blood Count 03/18/22 * Lipid Profile 01/16/23 * Complete Metabolic Panel 01/16/23 * Complete Metabolic Panel 09/19/22 * N-Terminal proBNP 12/18/21 * N-Terminal proBNP 01/16/23 * N-Terminal proBNP 09/19/22 * N-Terminal proBNP 03/18/22 Radiology* CT Angiography Chest w/ Contrast 06/19/23 * XR Chest 2 Views (PA & Lateral) 12/26/21 * XR Chest 2 Views (PA & Lateral) 10/16/22 [facility] Evaluation + Plan note Future Appointments Appointment Date:01/04/2023 08:45:00 AM Scheduled Provider:DELMAR MORENO MD Location:[facility] PM Appointment Type:PM OV Future Scheduled Tests Laboratory* Basic Metabolic Panel 12/18/21 * Basic Metabolic Panel 07/20/22 * Thyroid Stimulating Hormone 01/16/23 * Thyroid Stimulating Hormone 09/19/22 * Complete Blood Count 01/16/23 * Complete Blood Count 09/19/22 * Complete Blood Count 03/18/22 * Lipid Profile 01/16/23 * Complete Metabolic Panel 01/16/23 * Complete Metabolic Panel 09/19/22 * N-Terminal proBNP 12/18/21 * N-Terminal proBNP 01/16/23 * N-Terminal proBNP 09/19/22 * N-Terminal proBNP 03/18/22 Radiology* CT Angiography Chest w/ Contrast 06/19/23 * XR Chest 2 Views (PA & Lateral) 12/26/21 * XR Chest 2 Views (PA & Lateral) 10/16/22 [facility] Evaluation + Plan note Future Appointments Appointment Date:02/01/2023 09:00:00 AM Scheduled Provider:DELMAR MORENO MD Location:[facility] PM Appointment Type:PM OV Future Scheduled Tests Laboratory* Basic Metabolic Panel 07/20/22 * Thyroid Stimulating Hormone 01/16/23 * Thyroid Stimulating Hormone 09/19/22 * Complete Blood Count 01/16/23 * Complete Blood Count 09/19/22 * Complete Blood Count 03/18/22 * Lipid Profile 01/16/23 * Complete Metabolic Panel 01/16/23 * Complete Metabolic Panel 09/19/22 * N-Terminal proBNP 01/16/23 * N-Terminal proBNP 09/19/22 * N-Terminal proBNP 03/18/22 Radiology* CT Angiography Chest w/ Contrast 06/19/23 * XR Chest 2 Views (PA & Lateral) 12/26/21 * XR Chest 2 Views (PA & Lateral) 10/16/22 [facility] Evaluation + Plan note Future Appointments Appointment Date:02/23/2023 11:30:00 AM Scheduled Provider: Location:[facility] Appointment Type:PF PFT Appointment Date:03/29/2023 12:30:00 PM Scheduled Provider:DELMAR MORENO MD Location:[facility] PM Appointment Type:PM OV Future Scheduled Tests Laboratory* Basic Metabolic Panel 05/08/23 * Basic Metabolic Panel 07/20/22 * Thyroid Stimulating Hormone 01/16/23 * Thyroid Stimulating Hormone 09/19/22 * Complete Blood Count 05/08/23 * Complete Blood Count 01/16/23 * Complete Blood Count 09/19/22 * Complete Blood Count 03/18/22 * Lipid Profile 01/16/23 * Complete Metabolic Panel 01/16/23 * Complete Metabolic Panel 09/19/22 * N-Terminal proBNP 05/08/23 * N-Terminal proBNP 01/16/23 * N-Terminal proBNP 09/19/22 * N-Terminal proBNP 03/18/22 Radiology* CT Angiography Chest w/ Contrast 06/19/23 * XR Chest 2 Views (PA & Lateral) 02/05/23 * XR Chest 2 Views (PA & Lateral) 10/16/22 [facility] Evaluation + Plan note Future Appointments Appointment Date:03/29/2023 12:30:00 PM Scheduled Provider:DELMAR MORENO MD Location:[facility] PM Appointment Type:PM OV Future Scheduled Tests Laboratory* Basic Metabolic Panel 05/08/23 * Basic Metabolic Panel 07/20/22 * Thyroid Stimulating Hormone 01/16/23 * Thyroid Stimulating Hormone 09/19/22 * Complete Blood Count 05/08/23 * Complete Blood Count 01/16/23 * Complete Blood Count 09/19/22 * Complete Blood Count 03/18/22 * Lipid Profile 01/16/23 * Complete Metabolic Panel 01/16/23 * Complete Metabolic Panel 09/19/22 * N-Terminal proBNP 05/08/23 * N-Terminal proBNP 01/16/23 * N-Terminal proBNP 09/19/22 * N-Terminal proBNP 03/18/22 Radiology* CT Angiography Chest w/ Contrast 06/19/23 * XR Chest 2 Views (PA & Lateral) 02/05/23 * XR Chest 2 Views (PA & Lateral) 10/16/22 [facility] Evaluation + Plan note Future Appointments Appointment Date:05/24/2023 08:30:00 AM Scheduled Provider:DELMAR MORENO MD Location:[facility] PM Appointment Type:PM OV Future Scheduled Tests Laboratory* Basic Metabolic Panel 05/08/23 * Basic Metabolic Panel 07/20/22 * Thyroid Stimulating Hormone 01/16/23 * Thyroid Stimulating Hormone 09/19/22 * Complete Blood Count 05/08/23 * Complete Blood Count 01/16/23 * Complete Blood Count 09/19/22 * Complete Blood Count 03/18/22 * Lipid Profile 01/16/23 * Complete Metabolic Panel 01/16/23 * Complete Metabolic Panel 09/19/22 * N-Terminal proBNP 05/08/23 * N-Terminal proBNP 01/16/23 * N-Terminal proBNP 09/19/22 * N-Terminal proBNP 03/18/22 Radiology* CT Angiography Chest w/ Contrast 06/19/23 * XR Chest 2 Views (PA & Lateral) 02/05/23 * XR Chest 2 Views (PA & Lateral) 10/16/22 [facility] Evaluation + Plan note Future Appointments Appointment Date:05/28/2023 10:15:00 AM Scheduled Provider: Location:[facility] Appointment Type:CV OV Appointment Date:07/12/2023 08:00:00 AM Scheduled Provider:DELMAR MORENO MD Location:[facility] PM Appointment Type:PM OV Future Scheduled Tests Laboratory* Basic Metabolic Panel 05/08/23 * Basic Metabolic Panel 07/20/22 * Thyroid Stimulating Hormone 01/16/23 * Thyroid Stimulating Hormone 09/19/22 * Complete Blood Count 05/08/23 * Complete Blood Count 01/16/23 * Complete Blood Count 09/19/22 * Lipid Profile 01/16/23 * Complete Metabolic Panel 01/16/23 * Complete Metabolic Panel 09/19/22 * N-Terminal proBNP 05/08/23 * N-Terminal proBNP 01/16/23 * N-Terminal proBNP 09/19/22 Radiology* CT Angiography Chest w/ Contrast 06/19/23 * XR Chest 2 Views (PA & Lateral) 02/05/23 * XR Chest 2 Views (PA & Lateral) 10/16/22 [facility] Evaluation + Plan note Future Appointments Appointment Date:07/12/2023 08:00:00 AM Scheduled Provider:DELMAR MORENO MD Location:[facility] Appointment Type:PM OV Appointment Date:07/30/2023 01:00:00 PM Scheduled Provider: Location:[facility] Appointment Type:CV OV Future Scheduled Tests Laboratory* Basic Metabolic Panel 05/08/23 * Basic Metabolic Panel 07/20/22 * Thyroid Stimulating Hormone 05/28/23 * Thyroid Stimulating Hormone 01/16/23 * Thyroid Stimulating Hormone 09/19/22 * Complete Blood Count 05/08/23 * Complete Blood Count 05/28/23 * Complete Blood Count 01/16/23 * Complete Blood Count 09/19/22 * Lipid Profile 05/28/23 * Lipid Profile 01/16/23 * Complete Metabolic Panel 05/28/23 * Complete Metabolic Panel 01/16/23 * Complete Metabolic Panel 09/19/22 * N-Terminal proBNP 05/08/23 * N-Terminal proBNP 05/28/23 * N-Terminal proBNP 01/16/23 * N-Terminal proBNP 09/19/22 Radiology* CT Angiography Chest w/ Contrast 06/19/23 * XR Chest 2 Views (PA & Lateral) 02/05/23 * XR Chest 2 Views (PA & Lateral) 10/16/22 [facility] Evaluation + Plan note Future Appointments Appointment Date:08/30/2023 01:00:00 PM Scheduled Provider:DELMAR MORENO MD Location:[facility] Appointment Type:PM OV Appointment Date:09/02/2023 10:30:00 AM Scheduled Provider: Location:[facility] Appointment Type:CV [facility] [employer] [employer] Appointment Date:10/29/2023 03:30:00 PM Scheduled Provider: Location:[facility] Appointment Type:CV OV Future Scheduled Tests Laboratory* Basic Metabolic Panel 05/08/23 * Basic Metabolic Panel 10/29/23 * Thyroid Stimulating Hormone 01/16/23 * Thyroid Stimulating Hormone 09/19/22 * Complete Blood Count 05/08/23 * Complete Blood Count 05/28/23 * Complete Blood Count 01/16/23 * Complete Blood Count 09/19/22 * Complete Blood Count 10/29/23 * Lipid Profile 01/16/23 * Complete Metabolic Panel 01/16/23 * Complete Metabolic Panel 09/19/22 * N-Terminal proBNP 05/08/23 * N-Terminal proBNP 05/28/23 * N-Terminal proBNP 01/16/23 * N-Terminal proBNP 09/19/22 * N-Terminal proBNP 10/29/23 Radiology* CT Angiography Chest w/ Contrast 06/19/23 * XR Chest 2 Views (PA & Lateral) 02/05/23 * XR Chest 2 Views (PA & Lateral) 10/16/22 [facility] Evaluation + Plan note Future Appointments Appointment Date:09/03/2023 09:00:00 AM Scheduled Provider: Location:[facility] Appointment Type:Echo - Echocardiogram Adult Appointment Date:10/11/2023 10:00:00 AM Scheduled Provider: Location:[facility] Appointment Type:[facility] Appointment Date:10/11/2023 11:45:00 AM Scheduled Provider: Location:[facility] Appointment Type:CV OV Appointment Date:11/17/2023 09:00:00 AM Scheduled Provider:TYLER ROJAS Location:[facility] Appointment Type:PM OV Future Scheduled Tests Laboratory* Basic Metabolic Panel 05/08/23 * Basic Metabolic Panel 10/29/23 * Magnesium Level 08/16/23 * Thyroid Stimulating Hormone 01/16/23 * Thyroid Stimulating Hormone 08/16/23 * Thyroid Stimulating Hormone 09/19/22 * Free T4 08/16/23 * Complete Blood Count 05/08/23 * Complete Blood Count 05/28/23 * Complete Blood Count 01/16/23 * Complete Blood Count 08/16/23 * Complete Blood Count 09/19/22 * Complete Blood Count 10/29/23 * Lipid Profile 01/16/23 * Total T3 08/16/23 * Complete Metabolic Panel 01/16/23 * Complete Metabolic Panel 08/16/23 * Complete Metabolic Panel 09/19/22 * N-Terminal proBNP 05/08/23 * N-Terminal proBNP 05/28/23 * N-Terminal proBNP 01/16/23 * N-Terminal proBNP 08/16/23 * N-Terminal proBNP 09/19/22 * N-Terminal proBNP 10/29/23 Radiology* CT Angiography Chest w/ Contrast 06/19/23 * XR Chest 2 Views (PA & Lateral) 02/05/23 * XR Chest 2 Views (PA & Lateral) 10/16/22 [facility] Evaluation + Plan note Future Appointments Appointment Date:09/10/2023 11:00:00 AM Scheduled Provider: Location:[facility] Appointment Type:EP Ablation RF-CARTO Appointment Date:10/22/2023 10:00:00 AM Scheduled Provider: Location:[facility] Appointment Type:CV [facility] Appointment Date:11/17/2023 09:00:00 AM Scheduled Provider:TYLER ROJAS Location:[facility] Appointment Type:PM OV Appointment Date:12/09/2023 10:00:00 AM Scheduled Provider: Location:[facility] Appointment Type:CV OV Future Scheduled Tests Laboratory* Basic Metabolic Panel 05/08/23 * Basic Metabolic Panel 10/29/23 * Thyroid Stimulating Hormone 01/16/23 * Thyroid Stimulating Hormone 09/19/22 * Complete Blood Count 05/08/23 * Complete Blood Count 05/28/23 * Complete Blood Count 01/16/23 * Complete Blood Count 09/19/22 * Complete Blood Count 10/29/23 * Lipid Profile 01/16/23 * Complete Metabolic Panel 01/16/23 * Complete Metabolic Panel 09/19/22 * N-Terminal proBNP 05/08/23 * N-Terminal proBNP 05/28/23 * N-Terminal proBNP 01/16/23 * N-Terminal proBNP 09/19/22 * N-Terminal proBNP 10/29/23 Radiology* CT Angiography Chest w/ Contrast 06/19/23 * XR Chest 2 Views (PA & Lateral) 02/05/23 * XR Chest 2 Views (PA & Lateral) 10/16/22 [facility] Evaluation + Plan note Future Appointments Appointment Date:10/07/2023 01:30:00 PM Scheduled Provider:ARLEY SERNA Location:[facility] Appointment Type:CV OV Appointment Date:10/22/2023 10:00:00 AM Scheduled Provider: Location:[facility] Appointment Type:CV [facility] Appointment Date:11/17/2023 09:00:00 AM Scheduled Provider:TYLER ROJAS Location:[facility] Appointment Type:PM OV Future Scheduled Tests Laboratory* Basic Metabolic Panel 1/27/24 * Basic Metabolic Panel 10/29/23 * Thyroid Stimulating Hormone 09/07/23 * Thyroid Stimulating Hormone 01/16/23 * Thyroid Stimulating Hormone 09/19/22 * Free T4 09/07/23 * Complete Blood Count 05/08/23 * Complete Blood Count 05/28/23 * Complete Blood Count 01/16/23 * Complete Blood Count 09/19/22 * Complete Blood Count 10/29/23 * Lipid Profile 01/16/23 * Total T3 09/07/23 * Complete Metabolic Panel 01/16/23 * Complete Metabolic Panel 09/19/22 * N-Terminal proBNP 05/08/23 * N-Terminal proBNP 05/28/23 * N-Terminal proBNP 01/16/23 * N-Terminal proBNP 09/19/22 * N-Terminal proBNP 10/29/23 Radiology* CT Angiography Chest w/ Contrast 06/19/23 * XR Chest 2 Views (PA & Lateral) 02/05/23 * XR Chest 2 Views (PA & Lateral) 10/16/22 [facility] Evaluation + Plan note Future Appointments Appointment Date:12/30/2023 11:15:00 AM Scheduled Provider: Location:[facility] Appointment Type:CV OV Appointment Date:01/07/2024 08:20:00 AM Scheduled Provider:NATALIA SARGENT MD Location:[facility] Appointment Type: OV Future Scheduled Tests Laboratory* Basic Metabolic Panel 05/08/23 * Basic Metabolic Panel 10/29/23 * Thyroid Stimulating Hormone 01/16/23 * Complete Blood Count 05/08/23 * Complete Blood Count 05/28/23 * Complete Blood Count 01/16/23 * Complete Blood Count 10/29/23 * Lipid Profile 01/16/23 * Complete Metabolic Panel 01/16/23 * N-Terminal proBNP 05/08/23 * N-Terminal proBNP 05/28/23 * N-Terminal proBNP 01/16/23 * N-Terminal proBNP 10/29/23 Radiology* XR Chest 2 Views (PA & Lateral) 02/05/23 [facility] Evaluation + Plan note Future Appointments Appointment Date:05/26/2024 07:40:00 AM Scheduled Provider:NATALIA SARGENT MD Location:[facility] Appointment Type:PM OV Future Scheduled Tests Laboratory* Basic Metabolic Panel 05/08/23 * Complete Blood Count 05/08/23 * Complete Blood Count 05/28/23 * N-Terminal proBNP 05/08/23 * N-Terminal proBNP 05/28/23 [facility] evaluation + Plan note Future Appointments Appointment Date:11/07/2024 10:00:00 AM Scheduled Provider:[place] [id number] Location:[facility] Appointment Type:PT [facility] Appointment Date:11/09/2024 08:30:00 AM Scheduled Provider:[place] [id number] Location:[facility] Appointment Type:PT [facility] Appointment Date:11/14/2024 08:00:00 AM Scheduled Provider:[place] [id number] Location:[facility] Appointment Type:PT [facility] Appointment Date:11/16/2024 08:00:00 AM Scheduled Provider:[place] [id number] Location:[facility] Appointment Type:PT [facility] evaluation note* Diagnosis Pre-op testing- Primary Preoperative examination, unspecified Arthritis of left shoulder region Unspecified arthropathy, shoulder region Primary osteoarthritis of left shoulder Primary localized osteoarthrosis, shoulder region [facility] noteNo assessment information availableWAdena [facility] Work Phone: [email or web address] note* Diagnosis Incisional hernia, without obstruction or gangrene- Primary Type 2 diabetes mellitus without complication, without long-term current use of insulin (CMS/HCC) (HCC) Cirrhosis of liver without ascites, unspecified hepatic cirrhosis type (HCC) 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* Diagnosis Low serum prealbumin- Primary Incisional hernia without obstruction or gangrene documented [facility]* Diagnosis Low serum prealbumin- Primary Incisional hernia without obstruction or gangrene documented [facility]* Diagnosis Incisional hernia without obstruction or gangrene- Primary Preop testing Unspecified pre-operative examination Incisional hernia without obstruction or gangrene documented in this encounter [facility] note* Diagnosis Incisional hernia without obstruction or gangrene- Primary Incisional hernia without obstruction or gangrene documented in this encounter [facility] note* Diagnosis Encounter for postoperative care- Primary documented in this encounter [facility] note* Diagnosis Encounter for postoperative care- Primary documented in this encounter [facility] [facility] Narrative No data available for this section [facility] Discharge instructions No data available for this section [facility] Progress note No data available for this section [facility] Reason for referral (narrative)No reason for referral information availableWAdena [facility] Work Phone: Reason for visit Narrative* Auth/Cert (Routine) Specialty Diagnoses / Procedures Referred By Contac t Referred To Contact Diagnoses Incisional hernia without obstruction or gangrene Procedures CO RPR AA HERNIA 1ST 3-10 CM NCRC8/STRANGULATED CO MUSC MYOCUTANEOUS/FASCIOCUTANEOU S FLAP TRUNK OPEN INCISIONAL HERNIA REPAIR WITH MESH POSSIBLE COMPONENT SEPARATION [address] [place] [address] Phone: tel: fax: [facility] [place] [address] [place] [address] Phone: tel: Referral ID Status Reason Start Date Expiration Date Visits Re quested Visits Authorized [id number] 1 1 [facility] Summary Purpose Family History No Family History Records Found Relationship Condition Age at Onset Recorded Date/T mignon mother Malignant neoplasm Unknown father Malignant neoplasm Unknown sister Malignant neoplasm Unknown brother Malignant neoplasm Unknown Advance Directives No Advanced Directives Records Found Advance Directive Response Recorded Date/ Time Living Will No August 09, 2020 1:15pm Power of Assistant Cook No August 09 1:15pm Date Activated Date Inactivated Comments 06/21/2024 5:50 AM 06/26/2024 5:53 PM Date Activated Date Inactivated Comments 06/21/2024 5:50 AM 06/26/2024 5:53 PM Chief Complaint and Reason for Visit Chief Complaint Admit Date PAIN SCREEN, LUMBAR SPONDYLOSIS,LUMBAR R ADIC October 18, 2024 7:44am Additional Source Comments (unrecognized sect ion and content) No Status Records FoundNo Status Records FoundNo Status Records FoundNo Status Records FoundNo Status Records FoundNo Status Records FoundNo Status Records FoundNo Status Records FoundNo Status Records FoundNo Status Records Found INFORMATION SOURCE (unrecogn ized section and content) DATE CREATED AUTHOR 10/05/2017 [employer] DATE CREATED AUTHOR AUTHOR'S ORGANIZ ATION 01/06/2018 [facility] DATE CREATED AUTHOR AUTHOR'S ORGANIZ ATION 01/13/2018 [facility] [place] DATE CREATED AUTHOR AUTHOR'S ORGANIZ ATION 05/22/2021 [facility] DATE CREATED AUTHOR AUTHOR'S ORGANIZ ATION 01/06/2022 [facility] nter DATE CREATED AUTHOR AUTHOR'S ORGANIZ ATION 12/08/2023 [facility] ([place]) DATE CREATED AUTHOR AUTHOR'S ORGANIZ ATION 04/13/2024 [facility] DATE CREATED AUTHOR AUTHOR'S ORGANIZ ATION 08/04/2024 [facility] DATE CREATED AUTHOR AUTHOR'S ORGANIZ ATION 11/17/2024 [facility] DATE CREATED AUTHOR AUTHOR'S ORGANIZ ATION 12/10/2024 [facility] Source Comments (unrecognize d section and content) In the event this informatio n is protected by the Federal Confidentiality of Alcohol and Drug Abuse Patient Records regulations: The Federal rules restrict any use of the information to criminally investigate or prosecute any alcohol or drug abuse patient.[facility], IncIn the event this information is protected by the Federal Confidentiality of Alcohol and Drug Abuse Patient Records regulations: The Federal rules restrict any use of the information to criminally investigate or prosecute any alcohol or drug abuse patient.[facility], IncIn the event this information is protected by the Federal Confidentiality of Alcohol and Drug Abuse Patient Records regulations: The Federal rules restrict any use of the information to criminally investigate or prosecute any alcohol or drug abuse patient.[facility] Care Teams (unrecognized sec tion and content) Cooler Service Supervisor Relationship Specialty Start Date End Date Hoda Grayson MD [address] [place], [place] [phone] PCP - General 06/19/08 Cooler Service Supervisor Relationship Specialty Start Date End Date Hoda Grayson MD [address] [facility] [address] [place], [place] [phone] PCP - General 06/19/08 Team Status: Active Member Role Status Dates Dr. Davey Grayson MD Family Provider Active Team Status: Inactive Member Role Status Dates Dr. Davey Grayson MD Primary Care Provider, Attending Provider, Referring Provider Active Cooler Service Supervisor Relationship Specialty Start Date End Date Hoda Grayson [address] [facility] [address] [place] [phone] PCP - General Family Medicine 01/06/24 Natalia Sargent MD [address] [place] [address] Pain Medicine 02/04/24 Sam Modi MD [facility] [address] [facility] [address] [place] [address] Service Engine Repairer Cardiology 02/04/24 Cooler Service Supervisor Relationship Specialty Start Date End Date Hoda Grayson [address] [place] [phone] PCP - General Family Medicine 01/06/24 Natalia Sargent MD [address] [place] [address] Pain Medicine 02/04/24 Sam Modi MD [facility] [address] [facility] [address] [place] [address] Service Engine Repairer Cardiology 02/04/24 Cooler Service Supervisor Relationship Specialty Start Date End Date Hoda Grayson [address] [place] [phone] PCP - General Family Medicine 01/06/24 Natalia Sargent MD [address] [place] [address] Pain Medicine 02/04/24 Sam Modi MD [facility] [address] [facility] [address] [place] [address] Service Engine Repairer Cardiology 02/04/24 Cooler Service Supervisor Relationship Specialty Start Date End Date Hoda Grayson [address] [place] [phone] PCP - General Family Medicine 01/06/24 Natalia Sargent MD [address] [place] [address] Pain Medicine 02/04/24 Sam Modi MD [facility] [address] [facility] [address] [place], [place] [address] Service Engine Repairer Cardiology 02/04/24 Cooler Service Supervisor Relationship Specialty Start Date End Date Hoda Grayson [address] [place] [phone] PCP - General Family Medicine 01/06/24 Natalia Sargent MD [address] [place] [address] Pain Medicine 02/04/24 Sam Modi MD [facility] [address] [facility] [address] [place] [address] Service Engine Repairer Cardiology 02/04/24 Cooler Service Supervisor Relationship Specialty Start Date End Date Hoda Grayson [address] [place] [phone] PCP - General Family Medicine 01/06/24 Natalia Sargent MD [address] [place] [address] Pain Medicine 02/04/24 Sam Modi MD [facility] [address] [facility] [address] [place] [address] Service Engine Repairer Cardiology 02/04/24 Cooler Service Supervisor Relationship Specialty Start Date End Date Hoda Grayson [address] [place] [phone] PCP - General Family Medicine 01/06/24 Natalia Sargent MD [address] [place] [address] Pain Medicine 02/04/24 Sam Modi MD [place] [address] [place], [place] [phone] Service Engine Repairer Cardiology 02/04/24 Cooler Service Supervisor Relationship Specialty Start Date End Date Hoda Grayson [address] [place] [phone] PCP - General Family Medicine 01/06/24 Natalia Sargent MD [address] [place] [address] Pain Medicine 02/04/24 Sam Modi MD [place] [phone] Service Engine Repairer Cardiology 02/04/24 Cooler Service Supervisor Relationship Specialty Start Date End Date Hoda Grayson MD [address] [place] [address] PCP - General 06/19/08 Cooler Service Supervisor Relationship Specialty Start Date End Date Hoda Grayson [address] [place] [phone] PCP - General Family Medicine 01/06/24 Natalia Sargent MD [address] [place] [address] Pain Medicine 02/04/24 Sam Modi MD [facility] [address] [facility] [address] [place], [place] [address] Service Engine Repairer Cardiology 02/04/24 Cooler Service Supervisor Relationship Specialty Start Date End Date Hoda Grayson [address] [place] [phone] PCP - General Family Medicine 01/06/24 Natalia Sargent MD [address] [place] [address] Pain Medicine 02/04/24 Sam Modi MD [facility] [address] [facility] [address] [place] [address] Service Engine Repairer Cardiology 02/04/24 Cooler Service Supervisor Relationship Specialty Start Date End Date Hoda Grayson [address] [place] [phone] PCP - General Family Medicine 01/06/24 Natalia Sargent MD [address] [place] [address] Pain Medicine 02/04/24 Sam Modi MD [facility] [address] [facility] [address] [place] [address] Service Engine Repairer Cardiology 02/04/24 Cooler Service Supervisor Relationship Specialty Start Date End Date Hoda Grayson [address] [place] [phone] PCP - General Family Medicine 01/06/24 Natalia Sargent MD [address] [place] [address] Pain Medicine 02/04/24 Sam Modi MD [facility] [address] [facility] [address] [place] [address] Service Engine Repairer Cardiology 02/04/24 Cooler Service Supervisor Relationship Specialty Start Date End Date Hoda Grayson [address] [place] [phone] PCP - General Family Medicine 01/06/24 Natalia Sargent MD [address] [place] [address] Pain Medicine 02/04/24 Sam Modi MD [facility] [address] [facility] [address] [place] [address] Service Engine Repairer Cardiology 02/04/24 Cooler Service Supervisor Relationship Specialty Start Date End Date Hoda Grayson [address] [place] [phone] PCP - General Family Medicine 01/06/24 Natalia Sargent MD [address] [place] [address] Pain Medicine 02/04/24 Sam Modi MD [facility] [address] [facility] [address] [place] [address] Service Engine Repairer Cardiology 02/04/24 Team Status: Active Member Role/Relationship Status Dates Dr. Hoda Grayson MD Family Provider Active Dr. Hoda Grayson MD Primary Care Provider Acti ve Team Status: Inactive Member Role/Relationship Status Dates Dr. Hoda Grayson MD Primary Care Provider Acti ve Start: October 18, 2024 End: October 18, 2024 Dr. Jerrod Reyes MD Attending Provider Active Start: October 18, 2024 End: October 18, 2024 Dr. Jerrod Reyes MD Referring Provider Active Start: October 18, 2024 End: October 18, 2024 Care Team (unrecognized sect ion and content) Care Team Personnel Name: HODA GRAYSON MD Member Role: Primary Care Physician Address: Address: [address] [facility] [address] [place] [address]- Name: XU KOWALSKI MD Position: P4 Physician - Cardiology Address: Address: [address] [place], [place] [phone]- Care Team Related Persons Name: FRANCESCA JAMES Care Team Personnel Name: HODA GRAYSON MD Member Role: Primary Care Physician Address: Address: [address] [facility] [address] [place] [address]- Name: XU KOWALSKI MD Position: P4 Physician - Cardiology Med Service: Employed Provider Member Role: Service Engine Repairer Address: Address: [address] [place], [place] [phone]- Care Team Related Persons Name: FRANCESCA JAMES Care Team Personnel Name: HODA GRAYSON MD Role: Primary Care Physician Address: Address: [address] [facility] [address] [place] [address]- [place] Name: XU KOWALSKI MD Position: P4 Physician - Cardiology Member Role: Service Engine Repairer Address: Address: [address] [place] [id number]- Care Team Related Persons Name: FRANCESCA JAMES Care Team Personnel Name: HODA GRAYSON MD Role: Primary Care Physician Address: Address: [address] [facility] [address] [place] [address]- [place] Name: XU KOWALSKI MD Position: P4 Physician - Cardiology Member Role: Service Engine Repairer Address: Address: [address] [place] [address]- Care Team Related Persons Name: FRANCESCA JAMES Care Team Personnel Name: HODA GRAYSON MD Member Role: Primary Care Physician Address: Address: [address] [address]- Name: XU KOWALSKI MD Position: P4 Physician - Cardiology Member Role: Service Engine Repairer Address: Address: [address] [facility] [address] [place] [address]- Care Team Related Persons Name: FRANCESCA JAMES Reason for Visit (unrecogniz ed section and content) Reason Comments note to anesthesia to reveiw clearance Reason Comments 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 [address] [place] [address] Phone: tel: fax: Jaja Antione, [address] [facility] [address] [place] [address] Phone: tel: fax: Referral ID Status Reason Start Date Expiration Date Visits Re quested Visits Authorized [id number] Closed 01/06/2024 01/05/2025 1 1 Reason Onset Date Comments Other 03/22/2024 Reason Comments Request Outside Medical Records Reason Onset Date Comments Other 05/18/2024 Reason Onset Date Comments Other 05/25/2024 Postop Pain Mgmt Reason Comments Follow-up Reason Comments New Patient staple removal Reason Onset Date Comments Home Visit 07/26/2024 Goals (unrecognized section and content) Goals may be documented in a n alternate section Scheduled Active and Recently Administ ered Medications (unrecognized section and content) Medication Order 06/24/2024 06/25/2024 06/26/2024 acetaminophen (Tylenol) tablet 1,000 mg 1,000 mg, Oral, Every 8 hours, First dose on Wed06/21/24 at 1600, Phase II/On Unit, Maximum dose of acetaminophen is 4000 mg from all sources in 24 hours. 0019 (Self Administered Via Pump - Provider: Leonarda Ferguson RN)0812 (Given - Provider: Keenan Rios RN)1633 (Given - Provider: Keenan Rios RN) 0042 (Given - Provider: Gris Decker RN)0753 (Given - Provider: Keenan Rios RN)1551 (Given - Provider: Keenan Rios RN) 0023 (Given - Provider: Gris Decker RN)0814 (Given - Provider: Leah Lopez RN)1600 (Canceled Entry - Provider: Automatic Discharge Provider - Comment: Automatically canceled at discontinue of medication order) amiodarone (Pacerone) tablet 200 mg 200 mg, Oral, 2 times daily, First dose on Wed06/21/24 at 2100, Phase II/On Unit 08 (Given - Provider: Keenan Rios RN)2044 (Not Given - Provider: Gris Decker RN - Reason: Other - Comment: HR 54) 0754 (Given - Provider: Keenan Rios RN)2036 (Given - Provider: Gris Decker RN) 0814 (Given - Provider: Leah Lopez RN) atorvastatin (Lipitor) tablet 40 mg 40 mg, Oral, Daily, First dose on Wed06/21/24 at 2100, Phase II/On Unit 2040 (Given - Provider: Gris Decker RN) 2034 (Given - Provider: Gris Decker RN) bisacodyl (Dulcolax) suppository 10 mg 10 mg, Rectal, Daily, First dose on Wed06/23/24 at 1300 1115 (Given - Provider: Keenan Rios RN) 1200 (Not Given - Provider: Keenan Rios RN - Reason: Other - Comment: having loose stools.) 0814 (Not Given - Provider: Leah Lopez RN - Reason: Patient/family refused) carvedilol (Coreg) tablet 25 mg 25 mg, Oral, 2 times daily, First dose on Marlene 06/22/24 at 2100 0812 (Given - Provider: Keenan Rios RN)2044 (Not Given - Provider: Gris Decker RN - Reason: Other - Comment: Pt HR 54) 0754 (Given - Provider: Keenan Rios RN)2036 (Given - Provider: Gris Decker RN) 0814 (Given - Provider: Leah Lopez RN) enoxaparin (Lovenox) syringe 40 mg (CANCELED) 40 mg, SubCUTAneous, Every 24 hours scheduled (Daily), First dose on Marlene 06/22/24 at 1500, Phase II/On Unit, Indication of Use: Prophylaxis-DVT/PE, Indications: Prophylaxis of Venous Thromboembolism 0812 (Given - Provider: Keenan Rios RN) 0755 (Given - Provider: Keenan Rios RN) lactated ringers bolus 500 mL (COMPLETED) 500 mL, IntraVENous, at 250 mL/hr, Administer over 2 Hours, Once, On Wed06/26/24 at 0700, For 1 dose 0817 (New Bag - Provider: Leah Lopez RN)1017 (Stopped - Provider: Leah Lopez RN) polyethylene glycol (PEG) 3350 (Miralax) packet 17 g 17 g, Oral, Daily, First dose on Wed06/21/24 at 1600, Phase II/On Unit, 1st line for treatment of constipation - give scheduled if no bowel movement in past 24 hours. 0812 (Given - Provider: Keenan Rios RN) 0752 (Given - Provider: Keenan Rios RN) 0813 (Given - Provider: Leah Lopez RN) rivaroxaban (Xarelto) tablet 15 mg 15 mg, Oral, Daily with evening meal, First dose on Wed06/25/24 at 1800, Anticoagulant! Best administered with food or immediately before tube feedings. If ordered via NG or G-tube route, crush and mix with 50 mL water; give within 4 hours of mixing. 1555 (Given - Provider: Keenan Rios RN)1655 (Canceled Entry - Provider: Keenan Rios RN) sodium chloride 0.9% (NS) flush 10 mL 10 mL, IntraVENous, Every 12 hours scheduled (2 times per day), First dose on Wed06/21/24 at 2100, Phase II/On Unit 0900 (Not Given - Provider: Keenan Rios RN - Reason: IV Fluids Infusing)2046 (Given - Provider: Gris Decker RN) 0800 (Not Given - Provider: Keenan Rios RN - Reason: IV Fluids Infusing)2100 (Given - Provider: Gris Decker, RN) 0900 (Given - Provider: Leah Lopez RN) Continuous Medication Order 06/24/2024 06/25/2024 06/26/2024 sodium chloride 0.45 % with KCl 20 mEq/L infusion (CANCELED) 50 mL/hr, IntraVENous, Continuous, Starting on Wed06/23/24 at 1615 1633 (New Bag - Provider: Keenan Rios RN)2106 (Rate/Dose Verify - Provider: Gris Decker RN) 0250 (Rate/Dose Verify - Provider: Gris Decker RN)1300 (Stopped - Provider: Keenan Rios RN) PRN Medication Order 06/24/2024 06/25/2024 06/26/2024 hydrALAZINE (Apresoline) injection 10 mg 10 mg, IntraVENous, Every 6 hours PRN, high blood pressure, second line for SBP>160, hold for HR>105, Starting on Marlene 06/22/24 at 1535 HYDROmorphone (Dilaudid) injection 0.25 mg(Linked Group 1) 0.25 mg, IntraVENous, Every 4 hours PRN, moderate pain (4-6), Starting on Wed06/23/24 at 1017, Phase II/On Unit, If oral and IV narcotics ordered, use oral first and only use IV if oral is ineffective or cannot take oral. Do Not give oral and IV within 1 hour of each other unless specifically ordered. HYDROmorphone (Dilaudid) injection 0.5 mg(Linked Group 1) 0.5 mg, IntraVENous, Every 4 hours PRN, severe pain (7-10), Starting on Wed06/23/24 at 1017, Phase II/On Unit, If oral and IV narcotics ordered, use oral first and only use IV if oral is ineffective or cannot take oral. Do Not give oral and IV within 1 hour of each other unless specifically ordered. labetalol (Normodyne,Trandate) injection 10 mg 10 mg, IntraVENous, Every 6 hours PRN, high blood pressure, Starting on Marlene 06/22/24 at 1535, First line for SBP>160, hold for HR<60 naloxone (Narcan) injection 0.4 mg 0.4 mg, IntraVENous, Every 5 min PRN, opioid reversal, respiratory depression, Starting on 06/21/24 at 1525, +++ For RR <10, pinpoint pupils, over sedation for opioid reversal - MUST notify immigration case manager provider immediately after first dose, may give IM or SQ if no IV access +++ ondansetron (Zofran) injection 4 mg(Linked Group 2) 4 mg, IntraVENous, Every 6 hours PRN, nausea, vomiting, Starting on 06/21/24 at 1341, Phase II/On Unit, 1st Line. Give IV if patient is unable to take orally. If inadequate response within 60 minutes, proceed to next-line agent or contact provider if no further options ordered. ondansetron ODT (Zofran-ODT) disintegrating tablet 4 mg(Linked Group 2) 4 mg, Oral, Every 8 hours PRN, nausea, vomiting, Starting on 06/21/24 at 1341, Phase II/On Unit, 1st Line. If inadequate response within 60 minutes, proceed to next-line agent or contact provider if no further options ordered. Patient should allow tablet to dissolve on tongue. Do not remove from blister pack until just before administering. oxyCODONE (Roxicodone) immediate release tablet 10 mg(Linked Group 3) 10 mg, Oral, Every 4 hours PRN, severe pain (7-10), Starting on 06/21/24 at 1341, Phase II/On Unit 0812 (Given - Provider: Keenan Rios RN)1208 (Given - Provider: Keenan Rios RN)1633 (Given - Provider: Keenan Rios RN)2041 (Given - Provider: Gris Decker, SWATHI) 0042 (Given - Provider: Gris Decker, RN)0539 (Given - Provider: Gris Decker, RN)1146 (Given - Provider: Keenan Rios RN)1551 (Given - Provider: Keenan Rios RN)203 (Given - Provider: Gris Decker, SWAHTI) 0814 (Given - Provider: Leah Lopez, SWATHI) oxyCODONE (Roxicodone) immediate release tablet 5 mg(Linked Group 3) 5 mg, Oral, Every 4 hours PRN, moderate pain (4-6), Starting on Wed06/21/24 at 1341, Phase II/On Unit 0812 (See Alternative - Provider: Keenan Rios RN)1208 (See Alternative - Provider: Keenan Rios RN)1633 (See Alternative - Provider: Keenan Rios RN)2041 (See Alternative - Provider: Gris Dekcer, SWATHI) 0042 (See Alternative - Provider: Gris Decker RN)0539 (See Alternative - Provider: Gris Decker, RN)1146 (See Alternative - Provider: Keenan Rios RN)1551 (See Alternative - Provider: Keenan Rios RN)2034 (See Alternative - Provider: Gris Decker, RN) 0814 (See Alternative - Provider: Leah Lopez, SWATHI) sodium chloride 0.9 % infusion 5-250 mL/hr, IntraVENous, PRN, if patient receiving piggyback infusions and maintenance fluids are not ordered OR KVO fluids to protect IV site / prevent frequent line interruptions/ long duration, Starting on Wed06/21/24 at 1341, Phase II/On Unit, For piggyback infusion, administer at same rate as piggyback for a total of 25 mL. Enter 25 mL into dose field and piggyback rate into rate field of order. If piggyback is infusing at a rate less than 100 mL/hr, enter 25 mL into dose field and 100 mL/hr into rate field of order. For KVO fluids, enter rate of 20 mL/hr or less into rate field of order. sodium chloride 0.9% (NS) flush 10 mL 10 mL, IntraVENous, PRN, line care, Starting on Wed06/21/24 at 1341, Phase II/On Unit, After every IV line use tiZANidine (Zanaflex) tablet 4 mg 4 mg, Oral, Every 6 hours PRN, muscle spasms, Starting on Marlene 06/22/24 at 1154 1208 (Given - Provider: Keenan Rios RN)1800 (Given - Provider: Keenan Rios RN) 0042 (Given - Provider: Gris Decker, RN)0752 (Given - Provider: Keenan Rios RN)1551 (Given - Provider: Keenan Rios RN) 0023 (Given - Provider: Gris Decker RN) Linked Groups Order Group 1: HYDROmorphone (Dilaudid) injection 0.25 mgJump to med 0.25 mg, IntraVENous, Every 4 hours PRN, moderate pain (4-6), Starting on Wed06/23/24 at 1017, Phase II/On Unit, If oral and IV narcotics ordered, use oral first and only use IV if oral is ineffective or cannot take oral. Do Not give oral and IV within 1 hour of each other unless specifically ordered. Or HYDROmorphone (Dilaudid) injection 0.5 mgJump to med 0.5 mg, IntraVENous, Every 4 hours PRN, severe pain (7-10), Starting on Wed06/23/24 at 1017, Phase II/On Unit, If oral and IV narcotics ordered, use oral first and only use IV if oral is ineffective or cannot take oral. Do Not give oral and IV within 1 hour of each other unless specifically ordered. Group 2: ondansetron ODT (Zofran-ODT) disintegrating tablet 4 mgJump to med 4 mg, Oral, Every 8 hours PRN, nausea, vomiting, Starting on Wed06/21/24 at 1341, Phase II/On Unit, 1st Line. If inadequate response within 60 minutes, proceed to next-line agent or contact provider if no further options ordered. Patient should allow tablet to dissolve on tongue. Do not remove from blister pack until just before administering. Or ondansetron (Zofran) injection 4 mgJump to med 4 mg, IntraVENous, Every 6 hours PRN, nausea, vomiting, Starting on Wed06/21/24 at 1341, Phase II/On Unit, 1st Line. Give IV if patient is unable to take orally. If inadequate response within 60 minutes, proceed to next-line agent or contact provider if no further options ordered. Group 3: oxyCODONE (Roxicodone) immediate release tablet 5 mgJump to med 5 mg, Oral, Every 4 hours PRN, moderate pain (4-6), Starting on Wed06/21/24 at 1341, Phase II/On Unit Or oxyCODONE (Roxicodone) immediate release tablet 10 mgJump to med 10 mg, Oral, Every 4 hours PRN, severe pain (7-10), Starting on Wed06/21/24 at 1341, Phase II/On Unit FOR RECORDS PERTAINING TO PATIENTS WHO ARE OR HAVE BEEN ENROLLED IN A CHEMICAL DEPENDENCY/SUBSTANCEABUSE PROGRAM, SOME INFORMATION MAY BE OMITTED. This clinical summary was aggregated from multiple sources. Caution should be exercised in using it in the provision of clinical care. This summary normalizes information from multiple sources, and as a consequence, information in this document may materially change the coding, format and clinical context of patient data. In addition, data may be omitted in some cases. CLINICAL DECISIONS SHOULD BE BASED ON THE PRIMARY CLINICAL RECORDS. [facility]. provides no warranty or guarantee of the accuracy or completeness of information in this document.
--- NOTE | 2024-12-15 08:19 | MRI_ITS ---
PROCEDURE: SPINE LUMBAR (ROUTINE) 12/15/2024 REASON FOR EXAM: LUMBAR SPONDYLOSIS TECHNIQUE: Procedure Code: MRISPL Modality: MR Procedure: SPINE LUMBAR (ROUTINE) FINDINGS: No prior comparison exams. Grade 1 subluxation L5 upon S1 from bilateral pars defects with severe right L5 foraminal stenosis. No compression deformity. Degenerative retrolisthesis of L2 upon L3. No acute compression deformity. Normal conus. Modic type 1 changes are identified at L2-3 with a small amount of increased signal in that location. On axial images, no paravertebral or epidural fluid collection. At L1-2, no central stenosis is seen. Mild inferior foraminal narrowing on the left. At L2-3 degenerative retrolisthesis is present with annular bulging resulting in mild canal narrowing. There is moderate to severe left L2 foraminal stenosis with potential nerve compression. At L3-4, concentric disc bulge and ligamentous hypertrophy results in mild canal narrowing without foraminal compression. At L4-5, facet osteoarthrosis is present. Moderate to severe right and severe left L4 foraminal stenosis with left L4 nerve compression on sagittal image 16. At L5-S1 pars defects have been described along with right L5 [id number]-left L5 foraminal impingement MRI/Spine Lumbar (Routine) IMPRESSION: 1. Potential right L5, left L4 and left L2 nerve compression. Please correlate clinically. 2. Grade 1 subluxation of L5 upon S1 secondary to bilateral pars defects. 3. Modic type 1 changes which are quite robust at L2-3 particularly towards the left without additional signs of infection. Reading Location: [facility]
== END | disposition home or self-care (01) ==
PROVIDERS: PCP Family Medicine; Referring Provider Anesthesiology; Visit Provider Anesthesiology
DX: M47.816 Spondylosis without myelopathy or radiculopathy, lumbar region (principal)
CPT/HCPCS: 72148

== ENCOUNTER → 2025-01-30 | Outpatient (CLI) | payer MEDICARE, SELFPAY ==
--- NOTE | 2025-01-30 11:40 | CT_ITS ---
PROCEDURE: SPINE LUMBAR WITHOUT CONTRAST 01/30/2025 REASON FOR EXAM: EVALUATION OF AUTOFUSION AT L5-S1 FOR SURGERY TECHNIQUE: Procedure Code: CTSPL Modality: CT Procedure: SPINE LUMBAR WITHOUT CONTRAST Coronal and Sagittal reconstruction series were provided. One or more dose reduction techniques were used (e.g., Automated exposure control, adjustment of the mA and/or kV according to patient size, use of iterative reconstruction technique COMPARISON: MRI 12/15/2024 RADIATION DOSE SUMMARY: CTDlvol: 27 mGy DLP: 1099 mGycm FINDINGS: Bilateral L5 pars defects with grade 1 subluxation. Prominent disc space narrowing with sclerosis. Spinal stimulator leads enter the spinal canal at the level of T12-L1. There is no compression deformity. At L5-S1 there is severe bilateral neural foraminal stenosis with potential nerve root impingement. On soft tissue windows, no abdominal aortic aneurysm or retroperitoneal mass. T9-10, T10-11 and T11-12 exhibit no spinal stenosis. T12-L1 unremarkable. At L2-3, significant bony foraminal stenosis present on the left and there is endplate sclerosis. At L3-4 asymmetric left-sided foraminal narrowing also present. At L4-5, no central canal narrowing. At L5-S1 bilateral pars defects are seen as mentioned above CT/Spine Lumbar without Contrast IMPRESSION: Bilateral severe L5 foraminal stenosis and grade 1 subluxation. Spinal stimula tor leads in place. See above for further details Reading [facility]
== END | disposition home or self-care (01) ==
LOC: CT 11:39
PROVIDERS: PCP Family Medicine; Referring Provider Student in an Organized Health Care Education/Training Program; Visit Provider Student in an Organized Health Care Education/Training Program
DX: M43.17 Spondylolisthesis, lumbosacral region (principal); M51.362 Other intervertebral disc degeneration, lumbar region with discogenic back pain and lower extremity pain; M48.062 Spinal stenosis, lumbar region with neurogenic claudication
CPT/HCPCS: 72131

== ENCOUNTER → 2025-04-02 | Outpatient (CLI) | payer MEDICARE, SELFPAY ==
[2025-04-02 12:07] LABS: Hematocrit 48.4 % (40-54); Hemoglobin 15.9 g/dL (13.0-16.5); Mean Corp Hgb Conc 32.9 g/dL (32-36); Mean Corpuscular Volume 97.4 fL (80-94); Mean Platelet Vol. 9.2 fl (6.2-12.0); Platelet Count 169 K/mm3 (150-450); RBC Distribution Width CV 13.8 % (11.6-14.6); RBC Distribution Width SD 49.8 fl (35.1-43.9); Red Blood Count 4.97 M/mm3 (4.6-6.2); White Blood Count 6.8 K/mm3 (4.4-11.0)
[2025-04-02 12:59] LABS: Creatinine, Urine (random) 162.00 mg/dL (39.00-259.00); Microalbumin,Random Urine 24.0 mg/L (<20 mg/L)
[2025-04-02 13:44] LABS: AST(SGOT) 23 U/L (<=37); Alanine Aminotransfer ALT/SGPT 29 U/L (<=46); Albumin, Serum 4.1 g/dL (3.4-4.8); Alkaline Phosphatase 79 U/L (40-129); Anion Gap 11 (7-18); BUN 26 mg/dL (4-19); BUN/Creat Ratio 18.3 RATIO (10-20); Calcium,Total 9.5 mg/dL (7.6-11.0); Carbon Dioxide 25.8 mmol/L (20.0-29.0); Chloride 102 mmol/L (96-106); Cholesterol 150 mg/dL (<=200); Globulin 2.8 g/dL (2.2-4.2); Glucose 139 mg/dL (70-99); Low Density Lipoprotein Calc. 85 mg/dL; Potassium 4.7 mmol/L (3.5-5.1); Triglycerides 77 mg/dL; Very Low Density Lipoprotein 15 mg/dL (5-40); Vitamin D,25 Hydroxy 29.3 ng/mL (30-100); cholesterol:hdl ratio screen 3.00
== END | disposition home or self-care (01) ==
LOC: LABSPEC 10:23 → MFPLAB 10:56
PROVIDERS: PCP Family Medicine; Visit Provider Family Medicine
DX: Z00.00 Encounter for general adult medical examination without abnormal findings (principal); I25.10 Atherosclerotic heart disease of native coronary artery without angina pectoris; E55.9 Vitamin D deficiency, unspecified
CPT/HCPCS: 36415; 80053; 80061; 82043; 82306; 82570; 84443; 85027